=== PATIENT | male | born 1965 | race Caucasian/White ===

== ENCOUNTER 2018-03-26 08:20 | Inpatient (IN) ==
[2018-03-26] MEDS ORDERED: 0.9 % Sodium Chloride 1,000 ML IVC ONE ×4 (08:44→19:41)
[2018-03-26] MEDS ORDERED: Ondansetron 4 MG/2 ML VIAL IVP ONE (09:05)
[2018-03-26] MEDS ORDERED: Ketorolac 15 MG/ML VIAL IVP ONE (09:06)
--- NOTE | 2018-03-26 09:06 | Emergency Department Note ---
Disposition Clinical Impression: Renal stone, Sepsis, UTI (urinary tract infection), Acute kidney injury Abdominal pain Qualifiers: Abdominal location: unspecified location Qualified Code(s): R10.9 - Unspecified abdominal pain Disposition: Admitted As Inpatient Condition: Fair Referrals: Zafar Hinton MD [Primary Care Provider] - Forms: ED Satisfaction Letter Time of Disposition: 11:09 General Adult HPI - General Chief complaint: ED Arrhythmia/Palpitations Stated complaint: "kidney stones, nausea" Time Seen by Provider: 03/26/18 08:43 Source: patient, family Mode of arrival: ambulatory Limitations: no limitations Nursing Notes Reviewed: Yes Vital Signs Reviewed: Yes - History of Present Illness HPI Narrative: 52-year-old male with a history of hypertension, diabetes, recurrent kidney stones presents for evaluation of kidney stones and heart racing. Patient states that he has been diagnosed with kidney stones are the past 3 months. Patient did note that he passed 3 stones on Saturday. Since in the patient's had worsening pain over the right flank right lower abdomen into his groin. Patient has had interventions related to kidney stones in the past. Patient denies any fevers. Patient did note palpitations nausea this morning with worsening pain and prompted the ED evaluation. Patient denies any diarrhea or constipation. Patient denies any urinary symptoms. Patient denies any chest pain. Denies history of arrhythmias. Pain Scale: 8 - Related Data Home Medications Medication Instructions Recorded Confirmed Aspirin 81 mg PO DAILY 10/14/16 03/26/18 Atenolol 100 mg PO DAILY 10/14/16 03/26/18 Metformin HCl [Glucophage] 1,000 mg PO BID 10/14/16 03/26/18 Ranitidine HCl [Zantac] 300 mg PO BID 10/14/16 03/26/18 Triamterene/HCTZ 37.5/25mg 1 tab PO DAILY 10/15/16 03/26/18 [Dyazide] Oxycodone HCl/Acetaminophen 1 each PO Q6H PRN 03/26/18 03/26/18 [Percocet 5-325 mg Tablet] Previous Rx's Medication Instructions Recorded Docusate [Colace] 100 mg PO BID #60 capsule 12/17/16 Tamsulosin [Flomax] 0.4 mg PO DAILY #30 cap.er.24h 12/17/16 Allergies Allergy/AdvReac Type Severity Reaction Status Date / Time ciprofloxacin [From Cipro] Allergy Swelling Verified 12/17/16 12:26 of Lip/Tongue/Throat azithromycin AdvReac Vomiting Verified 12/17/16 12:26 codeine AdvReac Vomiting Verified 12/17/16 12:26 Past Medical History - Past Medical History Medical history: Reports: diabetes, GERD, hyperlipidemia, hypertension, kidney stones Surgical history: Reports: cataract, cholecystectomy, herniorrhaphy, orthopedic , other Psychiatric history: Reports: no psych history - Social History Smoking Status: Never smoker Smokeless Tobacco Status: No Alcohol use: Reports: none Drug use: Reports: none Physical Exam - General Limitations: no limitations General appearance: alert, in no apparent distress - Head Head exam: atraumatic, normocephalic, normal inspection - Eye Eye exam: Present: normal appearance, EOMI - ENT ENT exam: normal exam, mucous membranes moist - Neck Neck exam: Present: normal inspection - Chest Chest inspection: Present: normal inspection, symmetric chest wall rise - Respiratory Respiratory exam: Present: normal lung sounds bilaterally. Absent: respiratory distress - Cardiovascular Cardiovascular exam: Present: tachycardia. Absent: systolic murmur - Abdominal Exam Abdominal exam: Present: soft, Non-Tender - Extremities Exam Extremities exam: Present: normal inspection. Absent: pedal edema - Expanded Lower Extremity Exam Neurovascular/Tendon exam: Present: normal capillary refill - Back Exam Back exam: Present: normal inspection - Neurological Exam Neurological exam: Present: alert, oriented X3, CN II-XII intact Course Course Narrative: Patient seen and examined. Patient does have a regular vital signs with tachycardia. Appears to be sinus initially. Concerns of possible Sirs. Patient will get basic labs, screening cardiopulmonary evaluation with chest x- ray as well as troponin is concerning for ACS equivalent. Patient will also get a CT the abdomen pelvis. Disposition pending. - Reevaluation(s) Reevaluation #1: Patient seen and examined. Patient states his pain has improved. Patient's tachycardia was improving with IV fluids. Patient does meet SIRS and sepsis. Patient will be covered with most likely source in the urine. Time: 10:32 - Consultations Consultation #1: Spoke with Urology about the patient's presentation and concern for obstructed stone and possible sepsis. Time: 10:16 Consultation #2: updated Dr. Jaime regarding the UA results and concern for obstructed infected stone. Time: 11:01 Vital Signs Temperature 98.3 F 03/26/18 08:38 Pulse Rate 142 03/26/18 08:38 Respiratory Rate 18 03/26/18 08:38 Blood Pressure 128/70 03/26/18 08:38 O2 Sat by Pulse Oximetry 96 03/26/18 08:38 Temperature 98.3 F 03/26/18 08:38 Pulse Rate 134 03/26/18 10:50 Respiratory Rate 16 03/26/18 10:50 Blood Pressure 108/78 03/26/18 10:50 O2 Sat by Pulse Oximetry 95 03/26/18 10:50 Oxygen Delivery Oxygen Delivery Nasal Cannula Medical Decision Making - MDM Narrative Medical decision making narrative: Patient seen and examined. Patient did present with Sirs and likely sepsis criteria with elevated lactate. Patient does have obstructive stone on the right side. Patient urine does show signs concerning for infection. Discussed the case with urology. Patient received a 30 mL/kg bolus of fluids. Patient's acute kidney injury is likely secondary to sepsis and possible post renal. Patient was started the most appropriate antibiotics covering the most likely infection. - Lab Data Lab results reviewed: Yes I reviewed the patient's lab results. Result diagrams: 03/26/18 09:17 03/26/18 09:17 Lab Results 03/26/18 03/26/18 03/26/18 Range/Units 09:17 09:17 09:17 WBC 11.2 H (4.3-11.1) K/mcL RBC 5.39 (4.19-5.50) M/mcL Hgb 13.8 (12.9-16.9) g/dL Hct 43.4 (37.5-50.1) % MCV 80.5 L (83.0-100.0) fL MCH 25.6 L (28.0-33.3) pg MCHC 31.8 (31.6-35.5) g/dL RDW 15.6 H (11.5-14.5) % Plt Count 147 (140-400) K/mcL MPV 10.5 (9.4-12.4) fL Immature Gran % Test Not Performed Seg Neutrophils % 82.0 % Band Neutrophils % 14.0 H (0-4) % Lymphocytes % Test Not Performed Monocytes % 4.0 % Eosinophils % Test Not Performed Basophils % Test Not Performed Neutrophils # 10.8 H (1.6-8.9) K/mcL Lymphocytes # PHARMACY ORDER ENTRY TECHNICIAN Monocytes # 0.5 (0.0-1.3) K/mcL Eosinophils # Test Not Performed Basophils # Test Not Performed Platelet Estimate Normal (Normal) Sodium 132 L (136-145) mEq/L Potassium 3.9 (3.5-5.1) mEq/L Chloride 97 L (98-107) mEq/L Carbon Dioxide 17 L (23-29) mEq/L BUN 67 H (6-20) mg/dL Creatinine 3.15 H (0.70-1.30) mg/dL Est GFR ( Amer) 25 L (> 60) Est GFR (Non-Af Amer) 21 L (> 60) BUN/Creatinine Ratio 21 (6-26) Glucose 243 H (70-105) mg/dL Calculated Osmolality 301 H (280-300) Lactic Acid 3.0 H (0.5-2.2) mmol/L Calcium 8.4 L (8.6-10.3) mg/dL Total Bilirubin 0.7 (0.3-1.0) mg/dL Direct Bilirubin 0.4 H (0.0-0.2) mg/dL Indirect Bilirubin 0.3 (0.0-1.2) mg/dL AST 20 (13-39) Units/L ALT 35 (7-52) Units/L Alkaline Phosphatase 73 (34-104) Units/L Troponin I < 0.03 (< 0.04) ng/mL Serum Total Protein 6.9 (6.4-8.9) g/dL Albumin 3.3 L (3.5-5.7) g/dL Globulin 3.6 H (2.4-3.5) g/dL Albumin/Globulin Ratio 0.9 L (1.1-2.2) Urine Color (Yellow) Urine Clarity (Clear) Urine pH (5.0-8.0) pH Units Ur Specific [place] (1.010-1.025) Urine Protein (Neg-Trace) mg/dL Urine Glucose (UA) (Normal) mg/dL Urine Ketones (Negative) mg/dL Urine Blood (Negative) Urine Nitrite (Negative) Urine Bilirubin (Negative) Urine Urobilinogen (Normal) mg/dL Ur Leukocyte Esterase (Negative) Urine Microscopic RBC Urine Microscopic WBC (0-3) per hpf Ur Squamous Epith Cells (None-Few) per lpf Amorphous Sediment (Few) Urine Bacteria (None-Few) per hpf Hyaline Casts (None-Few) per lpf Urine Yeast 03/26/18 Range/Units 10:20 WBC (4.3-11.1) K/mcL RBC (4.19-5.50) M/mcL Hgb (12.9-16.9) g/dL Hct (37.5-50.1) % MCV (83.0-100.0) fL MCH (28.0-33.3) pg MCHC (31.6-35.5) g/dL RDW (11.5-14.5) % Plt Count (140-400) K/mcL MPV (9.4-12.4) fL Immature Gran % Seg Neutrophils % % Band Neutrophils % (0-4) % Lymphocytes % Monocytes % % Eosinophils % Basophils % Neutrophils # (1.6-8.9) K/mcL Lymphocytes # Monocytes # (0.0-1.3) K/mcL Eosinophils # Basophils # Platelet Estimate (Normal) Sodium (136-145) mEq/L Potassium (3.5-5.1) mEq/L Chloride (98-107) mEq/L Carbon Dioxide (23-29) mEq/L BUN (6-20) mg/dL Creatinine (0.70-1.30) mg/dL Est GFR ( Amer) (> 60) Est GFR (Non-Af Amer) (> 60) BUN/Creatinine Ratio (6-26) Glucose (70-105) mg/dL Calculated Osmolality (280-300) Lactic Acid (0.5-2.2) mmol/L Calcium (8.6-10.3) mg/dL Total Bilirubin (0.3-1.0) mg/dL Direct Bilirubin (0.0-0.2) mg/dL Indirect Bilirubin (0.0-1.2) mg/dL AST (13-39) Units/L ALT (7-52) Units/L Alkaline Phosphatase (34-104) Units/L Troponin I (< 0.04) ng/mL Serum Total Protein (6.4-8.9) g/dL Albumin (3.5-5.7) g/dL Globulin (2.4-3.5) g/dL Albumin/Globulin Ratio (1.1-2.2) Urine Color Dark Yellow (Yellow) Urine Clarity Turbid A (Clear) Urine pH 5.0 (5.0-8.0) pH Units Ur Specific [place] 1.028 H (1.010-1.025) Urine Protein 100 H (Neg-Trace) mg/dL Urine Glucose (UA) Normal (Normal) mg/dL Urine Ketones Trace H (Negative) mg/dL Urine Blood Negative (Negative) Urine Nitrite Negative (Negative) Urine Bilirubin Moderate H (Negative) Urine Urobilinogen Normal (Normal) mg/dL Ur Leukocyte Esterase Moderate H (Negative) Urine Microscopic RBC Test Not Performed Urine Microscopic WBC 30-50 H (0-3) per hpf Ur Squamous Epith Cells Many H (None-Few) per lpf Amorphous Sediment Many H (Few) Urine Bacteria Many H (None-Few) per hpf Hyaline Casts None Seen (None-Few) per lpf Urine Yeast Test Not Performed - Radiology Data Radiology results reviewed: Yes I reviewed the patient's radiology results. Chest X-Ray 03/26/18 08:44 IMPRESSION: No evidence for acute cardiopulmonary process. D/ / Mark Sewell MD / Mark Sewell MD Interpreting Provider: Mark Sewell MD Abdomen/Pelvis CT 03/26/18 08:45 IMPRESSION: Multiple stones are present to the distal right ureter to include at the right UVJ measuring up to 6 mm in size. [id number] obstructive uropathy proximal to this. Multiple additional nonobstructing right renal stones. Diffuse fatty infiltration of the liver. Mild colonic diverticulosis. D/ / 03/26/2018 09:20:59 Mark Sewell MD / Dori Mcdonnell Interpreting Provider: Mark Sewell MD - EKG Data EKG #1 EKG attestation: Yes I reviewed and interpreted this EKG. EKG shows normal: sinus rhythm Rate: tachycardia Rhythm: NSR [place]/QRS: normal Q waves: v1 T wave inversions noted in: III Interpretation: nonspecific ST-T wave changes S.B.A.R. - S.B.A.R. Situation: Demographics Background: Presenting Complaint Assessment: Vital Signs, Course and respsone to treatment, Patient/Family Expectation Recommendation: Barrier(s) to disposition, Recommendation based on pending studies, treatments, or consults Du Report Given to: Dr. Fabrice Sandy Repor Time: 11:09
[2018-03-26 09:29] LABS: Hematocrit 43.4 % (37.5-50.1); Hemoglobin 13.8 g/dL (12.9-16.9); Mean Corpuscular HGB Conc 31.8 g/dL (31.6-35.5); Mean Corpuscular Hemoglobin 25.6 pg (28.0-33.3); Mean Corpuscular Volume 80.5 fL (83.0-100.0); Mean Platelet Volume 10.5 fL (9.4-12.4); Monocytes # 0.5 K/mcL (0.0-1.3); Platelet Count 147 K/mcL (140-400); Red Blood Count 5.39 M/mcL (4.19-5.50); Red Cell Distribution Width 15.6 % (11.5-14.5)
[2018-03-26] MEDS ORDERED: *HR* FentaNYL (PF) 100 MCG/2 ML VIAL IVP ONE (09:33)
[2018-03-26 09:53] LABS: Troponin I < 0.03 ng/mL (< 0.04)
[2018-03-26 09:55] LABS: Alanine Aminotransferase 35 Units/L (7-52); Albumin 3.3 g/dL (3.5-5.7); Albumin/Globulin Ratio 0.9 (1.1-2.2); Alkaline Phosphatase 73 Units/L (34-104); Aspartate Amino Transferase 20 Units/L (13-39); BUN/Creatinine Ratio 21 (6-26); Bilirubin,Direct 0.4 mg/dL (0.0-0.2); Bilirubin,Indirect 0.3 mg/dL (0.0-1.2); Bilirubin,Total 0.7 mg/dL (0.3-1.0); Blood Urea Nitrogen 67 mg/dL (6-20); Calcium 8.4 mg/dL (8.6-10.3); Carbon Dioxide 17 mEq/L (23-29); Chloride 97 mEq/L (98-107); Globulin 3.6 g/dL (2.4-3.5); Glucose 243 mg/dL (70-105); Osmolality,Calculated 301 (280-300); Potassium 3.9 mEq/L (3.5-5.1); Sodium 132 mEq/L (136-145); Total Protein 6.9 g/dL (6.4-8.9); eGFR For African Americans 25 (> 60); eGFR For Non-African Americans 21 (> 60)
[2018-03-26 09:57] LABS: Neutrophils # 10.8 K/mcL (1.6-8.9)
[2018-03-26 09:58] LABS: Platelet Estimate Normal (Normal)
[2018-03-26] MEDS ORDERED: Piperacillin/Tazobactam 3.375 GM in 0.9 % Sodium Chloride Mini Bag 100 ML IVPB ONE (10:16)
[2018-03-26 10:33] LABS: Bilirubin,Urine Moderate (Negative); Blood,Urine Negative (Negative); Clarity,Urine Turbid (Clear); Color,Urine Dark Yellow (Yellow); Glucose,Urine (UA) Normal (Normal); Ketones,Urine Trace mg/dL (Negative); Leukocyte Esterase,Urine Moderate (Negative); Nitrite,Urine Negative (Negative); Protein,Urine 100 mg/dL (Neg-Trace); Specific Gravity,Urine 1.028 (1.010-1.025); Urobilinogen,Urine Normal (Normal)
[2018-03-26 10:36] LABS: Squamous Epithelial Cell,Urine Many per lpf (None-Few); WBC,Urine 30-50 per hpf (0-3)
[2018-03-26 10:50] LABS: Bacteria,Urine Many per hpf (None-Few)
[2018-03-26 10:52] LABS: Hyaline Casts,Urine None Seen per lpf (None-Few)
[2018-03-26 10:53] LABS: Amorphous Sediment,Urine Many (Few)
--- NOTE | 2018-03-26 11:01 | Urology - Consult Note ---
<Nuris Mackey N - Last Filed: 03/26/18 11:13> Date of Encounter: 03/26/18 Time of Encounter: 10:59 - Assessment and Plan (1) Right ureteral calculus Current Visit: Yes Status: Acute Assessment and plan: Findings reviewed and discussed with Dr. Jaime. Dr. Jaime is on his way to evaluate patient for further management. Antibiotics and pain management initiated in ED. Urology CN:HPI Consult date: 03/26/18 Reason for consult Urology: Other (Right Flank Pain, Right Ureteral Stone, Possible Urosepsis) History of present illness: Patient presents to the ER with right flank pain, hematuria, fever, chills. Patient was seen 2 days ago by primary care provider and was given [place] and Phenergan for presumed renal stone. Patient was also given IM Toradol for pain in the office. Patient states his symptoms began approximately 5 days ago. Patient states his symptoms have steadily worsened over the last 48 hours. He iis an established patient with Dr. Borges. He has undergone 2 surgeries for renal stones in the past, including basket retrieval and ESWL. Patient states he has a history of renal failure in 2016 with a renal stone that resolved after the stone was passed. Patient states he is a diabetic and his last A1c 6.4. Past Med Surg Social Fam HX - Past Medical History Medical history: diabetes, GERD, hyperlipidemia, hypertension, kidney stones Psychiatric history: no psych history - Past Surgical History Surgical History: cataract, cholecystectomy, herniorrhaphy, orthopedic, other Additional surgical history: LEFT FOOT SURGERY WITH RODS IN FOOT, BILT KNEE SURGERY, HERNIA REPAIR, EYE IMPLANTS - Social History Smoking Status: Never smoker Smokeless Tobacco Status: No Alcohol use: none Drug use: none - Family History Mother Hx Family Cardiac Disorders: Yes (HTN) Hx Family GI Disorders: Yes (GERD) Medications and Allergies Aspirin 81 mg PO DAILY 10/14/16 [History] Atenolol 100 mg PO DAILY 10/14/16 [History] Metformin HCl [Glucophage] 1,000 mg PO BID 10/14/16 [History] Ranitidine HCl [Zantac] 300 mg PO BID 10/14/16 [History] Triamterene/HCTZ 37.5/25mg [Dyazide] 1 tab PO DAILY 10/15/16 [History] Docusate [Colace] 100 mg PO BID #60 capsule 12/17/16 [Rx] Tamsulosin [Flomax] 0.4 mg PO DAILY #30 cap.er.24h 12/17/16 [Rx] Oxycodone HCl/Acetaminophen [Percocet 5-325 mg Tablet] 1 each PO Q6H PRN [History] 3 Allergy/AdvReac Type Severity Reaction Status Date / Time ciprofloxacin [From Cipro] Allergy Swelling Verified 12/17/16 12:26 of Lip/Tongue/Throat azithromycin AdvReac Vomiting Verified 12/17/16 12:26 codeine AdvReac Vomiting Verified 12/17/16 12:26 Review of Systems - Constitutional as per HPI, chills, fatigue, fever(s) - EENT Nose, mouth and throat: no dizziness, no headache(s), no throat swelling - Cardiovascular palpitations (Tachycardic on admission ), no chest pain, no dyspnea - Respiratory no cough, no dyspnea - Gastrointestinal abdominal pain, nausea, vomiting - Genitourinary flank pain (right), hematuria, no change in urinary stream, no difficulty urinating, no dysuria, no urinary frequency, no urinary hesitancy, no urinary urgency - Musculoskeletal back pain, no muscle weakness, no numbness - Integumentary no erythema, no lesions, no rash, no swelling - Neurological no confusion, no syncope Exam Initial Vital Signs Temp Pulse Resp BP Pulse Ox 98.3 F 142 18 128/70 96 03/26/18 08:38 03/26/18 08:38 03/26/18 08:38 03/26/18 08:38 03/26/18 08:38 - General physical appearance Present: well developed, no distress, moderate pain, obese - Eyes Present: PERRL, normal ocular movement - ENT Present: normal nares. Absent: nasal discharge - Neck Present: no masses, trachea midline - Respiratory Present: normal respiratory effort - Cardiovascular Cardiovascular exam IM: tachycardia - Abdomen Abdomen: Present: soft, tender (RLQ tenderness to palpation ). Absent: guarding , rigid - Integumentary Present: no rash, no growths, no abnormal pigmentation - Neurologic Present: normal coordination. Absent: disoriented (Patient appears uncomfortable during exam; Nurse present. Zosyn infusion initiated during exam. ), confused Urology Results - Labs 03/26/18 09:17 03/26/18 09:17 Abnormal lab results WBC 11.2 K/mcL (4.3-11.1) H 03/26/18 09:17 MCV 80.5 fL (83.0-100.0) L 03/26/18 09:17 MCH 25.6 pg (28.0-33.3) L 03/26/18 09:17 RDW 15.6 % (11.5-14.5) H 03/26/18 09:17 Band Neutrophils % 14.0 % (0-4) H 03/26/18 09:17 Neutrophils # 10.8 K/mcL (1.6-8.9) H 03/26/18 09:17 Sodium 132 mEq/L (136-145) L 03/26/18 09:17 Chloride 97 mEq/L (98-107) L 03/26/18 09:17 Carbon Dioxide 17 mEq/L (23-29) L 03/26/18 09:17 BUN 67 mg/dL (6-20) H 03/26/18 09:17 Creatinine 3.15 mg/dL (0.70-1.30) H 03/26/18 09:17 Est GFR ( Amer) 25 (> 60) L 03/26/18 09:17 Est GFR (Non-Af Amer) 21 (> 60) L 03/26/18 09:17 Glucose 243 mg/dL (70-105) H 03/26/18 09:17 Calculated Osmolality 301 (280-300) H 03/26/18 09:17 Lactic Acid 3.0 mmol/L (0.5-2.2) H 03/26/18 09:17 Calcium 8.4 mg/dL (8.6-10.3) L 03/26/18 09:17 Direct Bilirubin 0.4 mg/dL (0.0-0.2) H 03/26/18 09:17 Albumin 3.3 g/dL (3.5-5.7) L 03/26/18 09:17 Globulin 3.6 g/dL (2.4-3.5) H 03/26/18 09:17 Albumin/Globulin Ratio 0.9 (1.1-2.2) L 03/26/18 09:17 Urine Clarity Turbid (Clear) A 03/26/18 10:20 Ur Specific [place] 1.028 (1.010-1.025) H 03/26/18 10:20 Urine Protein 100 mg/dL (Neg-Trace) H 03/26/18 10:20 Urine Ketones Trace mg/dL (Negative) H 03/26/18 10:20 Urine Bilirubin Moderate (Negative) H 03/26/18 10:20 Ur Leukocyte Esterase Moderate (Negative) H 03/26/18 10:20 Urine Microscopic WBC 30-50 per hpf (0-3) H 03/26/18 10:20 Ur Squamous Epith Cells Many per lpf (None-Few) H 03/26/18 10:20 Amorphous Sediment Many (Few) H 03/26/18 10:20 Urine Bacteria Many per hpf (None-Few) H 03/26/18 10:20 Diabetes panel 03/26/18 Range/Units 09:17 Sodium 132 L (136-145) mEq/L Potassium 3.9 (3.5-5.1) mEq/L Chloride 97 L (98-107) mEq/L Carbon Dioxide 17 L (23-29) mEq/L BUN 67 H (6-20) mg/dL Creatinine 3.15 H (0.70-1.30) mg/dL Glucose 243 H (70-105) mg/dL Calcium 8.4 L (8.6-10.3) mg/dL AST 20 (13-39) Units/L ALT 35 (7-52) Units/L Alkaline Phosphatase 73 (34-104) Units/L Albumin 3.3 L (3.5-5.7) g/dL Calcium panel 03/26/18 Range/Units 09:17 Calcium 8.4 L (8.6-10.3) mg/dL Albumin 3.3 L (3.5-5.7) g/dL Pituitary panel 03/26/18 Range/Units 09:17 Sodium 132 L (136-145) mEq/L Potassium 3.9 (3.5-5.1) mEq/L Chloride 97 L (98-107) mEq/L Carbon Dioxide 17 L (23-29) mEq/L BUN 67 H (6-20) mg/dL Creatinine 3.15 H (0.70-1.30) mg/dL Glucose 243 H (70-105) mg/dL Calcium 8.4 L (8.6-10.3) mg/dL Adrenal panel 03/26/18 Range/Units 09:17 Sodium 132 L (136-145) mEq/L Potassium 3.9 (3.5-5.1) mEq/L Chloride 97 L (98-107) mEq/L Carbon Dioxide 17 L (23-29) mEq/L BUN 67 H (6-20) mg/dL Creatinine 3.15 H (0.70-1.30) mg/dL Glucose 243 H (70-105) mg/dL Calcium 8.4 L (8.6-10.3) mg/dL Total Bilirubin 0.7 (0.3-1.0) mg/dL AST 20 (13-39) Units/L ALT 35 (7-52) Units/L Alkaline Phosphatase 73 (34-104) Units/L Albumin 3.3 L (3.5-5.7) g/dL All other labs normal. - Imaging CT scan - abdomen: report reviewed CT scan - pelvis: report reviewed Consult Discharge Plan - Plan <Ton Jaime - Last Filed: 03/26/18 12:43> Date of Encounter: 03/26/18 - Assessment and Plan (1) Hydronephrosis due to obstruction of ureter Current Visit: Yes Status: Acute Assessment and plan: I have reviewed the assessment and examine the patient with Nuris Mackey. I agree with her plan with the additional below Patient has distal ureteral obstruction secondary to multiple distal right ureteral stones. Patient was taken to the operating room today urgently for cystoscopy and right ureteral stent placement. (2) Right ureteral calculus Current Visit: Yes Status: Acute Assessment and plan: We will plan on relieving obstruction with right ureteral stent placement today. (3) Sepsis Current Visit: Yes Status: Acute Assessment and plan: Patient likely early sepsis secondary to obstructing ureteral stone. Patient will require broad-spectrum antibiotics until cultures return. Plan on cystoscopy and right ureteral stent placement for obstruction relief today. Qualifiers: Sepsis type: sepsis due to unspecified organism Qualified Code(s): A41.9 - Sepsis, unspecified organism Exam Initial Vital Signs Temp Pulse Resp BP Pulse Ox 98.3 F 142 18 128/70 96 03/26/18 08:38 03/26/18 08:38 03/26/18 08:38 03/26/18 08:38 03/26/18 08:38 Urology Results - Labs 03/26/18 09:17 03/26/18 09:17 Abnormal lab results WBC 11.2 K/mcL (4.3-11.1) H 03/26/18 09:17 MCV 80.5 fL (83.0-100.0) L 03/26/18 09:17 MCH 25.6 pg (28.0-33.3) L 03/26/18 09:17 RDW 15.6 % (11.5-14.5) H 03/26/18 09:17 Band Neutrophils % 14.0 % (0-4) H 03/26/18 09:17 Neutrophils # 10.8 K/mcL (1.6-8.9) H 03/26/18 09:17 Sodium 132 mEq/L (136-145) L 03/26/18 09:17 Chloride 97 mEq/L (98-107) L 03/26/18 09:17 Carbon Dioxide 17 mEq/L (23-29) L 03/26/18 09:17 BUN 67 mg/dL (6-20) H 03/26/18 09:17 Creatinine 3.15 mg/dL (0.70-1.30) H 03/26/18 09:17 Est GFR ( Amer) 25 (> 60) L 03/26/18 09:17 Est GFR (Non-Af Amer) 21 (> 60) L 03/26/18 09:17 Glucose 243 mg/dL (70-105) H 03/26/18 09:17 Calculated Osmolality 301 (280-300) H 03/26/18 09:17 Lactic Acid 3.0 mmol/L (0.5-2.2) H 03/26/18 09:17 Calcium 8.4 mg/dL (8.6-10.3) L 03/26/18 09:17 Direct Bilirubin 0.4 mg/dL (0.0-0.2) H 03/26/18 09:17 Albumin 3.3 g/dL (3.5-5.7) L 03/26/18 09:17 Globulin 3.6 g/dL (2.4-3.5) H 03/26/18 09:17 Albumin/Globulin Ratio 0.9 (1.1-2.2) L 03/26/18 09:17 Urine Clarity Turbid (Clear) A 03/26/18 10:20 Ur Specific [place] 1.028 (1.010-1.025) H 03/26/18 10:20 Urine Protein 100 mg/dL (Neg-Trace) H 03/26/18 10:20 Urine Ketones Trace mg/dL (Negative) H 03/26/18 10:20 Urine Bilirubin Moderate (Negative) H 03/26/18 10:20 Ur Leukocyte Esterase Moderate (Negative) H 03/26/18 10:20 Urine Microscopic WBC 30-50 per hpf (0-3) H 03/26/18 10:20 Ur Squamous Epith Cells Many per lpf (None-Few) H 03/26/18 10:20 Amorphous Sediment Many (Few) H 03/26/18 10:20 Urine Bacteria Many per hpf (None-Few) H 03/26/18 10:20 All other labs normal.
[2018-03-26] MEDS ORDERED: Naloxone 0.4 MG/ML INJ IVP PRN ×2 (11:45→14:23)
[2018-03-26 11:49] LABS: Sodium, Urine 29.2 mEq/L
--- NOTE | 2018-03-26 12:01 | Internal Med History&Physical ---
<Melissa De Souza Shannon - Last Filed: 03/26/18 12:53> Date of Encounter: 03/26/18 Time of Encounter: 11:51 Internal Medicine - H&P: HPI Chief complaint: Right flank pain Admitted From: Home Plans for Post Hospital Care: Home History of present illness: Mr. Grossman is a 52 year old male with history of renal stones, GERD, DM, and HLD The patient has a 5 day history of right flank pain due to renal stones. He was seen in his pcp office when he was given meds to control his pain. Since that visit he indicates that his pain has worsened. He reports subjective fevers , right abdominal tenderness, and chills. He currently rates the pain a 5-6/10 , which he states is better. The patient was found to have multiple stones in the distal right ureter per CT, one measuring 6 mm, with mild to mod obstructive uropathy. The CT showed mild diverticulosis and fatty infiltrate of the liver. Patient hr in the 120-130's, creat 3.15, bun 67, urine protein 100, wbc 30-50 and NA is 132. The patient has some sepsis criteria. Lactic acid is 3.0, will trend until under 2.0. The patient was started on zosyn for uti. EKG showed tachycardia and a ? a-flutter. Will get another EKG in am. Continuous cardiac monitoring. Past Med Surg Social Fam HX - Past Medical History Medical history: diabetes, GERD, hyperlipidemia, hypertension, kidney stones Psychiatric history: no psych history - Past Surgical History Surgical History: cataract, cholecystectomy, herniorrhaphy, orthopedic, other Additional surgical history: LEFT FOOT SURGERY WITH RODS IN FOOT, BILT KNEE SURGERY, HERNIA REPAIR, EYE IMPLANTS - Social History Smoking Status: Never smoker Smokeless Tobacco Status: No Alcohol use: none Drug use: none - Family History Mother Hx Family Cardiac Disorders: Yes (HTN) Hx Family GI Disorders: Yes (GERD) Internal Medicine - H&P: Meds RX: Aspirin 81 mg PO DAILY 10/14/16 [History] RX: Atenolol 100 mg PO DAILY 10/14/16 [History] RX: Metformin HCl [Glucophage] 1,000 mg PO BID 10/14/16 [History] RX: Ranitidine HCl [Zantac] 300 mg PO BID 10/14/16 [History] RX: Triamterene/HCTZ 37.5/25mg [Dyazide] 1 tab PO DAILY 10/15/16 [History] Docusate [Colace] 100 mg PO BID #60 capsule 12/17/16 [Rx] RX: Tamsulosin [Flomax] 0.4 mg PO DAILY #30 cap.er.24h 12/17/16 [Rx] Oxycodone HCl/Acetaminophen [Percocet 5-325 mg Tablet] 1 each PO Q6H PRN [History] 3 Allergy/AdvReac Type Severity Reaction Status Date / Time ciprofloxacin [From Cipro] Allergy Swelling Verified 12/17/16 12:26 of Lip/Tongue/Throat azithromycin AdvReac Vomiting Verified 12/17/16 12:26 codeine AdvReac Vomiting Verified 12/17/16 12:26 All Systems PM: A 10-system review of systems was performed and is negative for pertinent findings except as documented above in the HPI. - Constitutional Constitutional: chills, fever(s), no night sweats - EENT Eyes: no blurry vision, no change in vision, no discharge, no pain, no photophobia Ears: no ear discharge, no ear pain, no tinnitus Nose, mouth and throat: no dysphagia, no nasal discharge, no neck pain, no sore throat - Cardiovascular Cardiovascular ROS IM: no chest pain, no diaphoresis, no dyspnea, no lightheadedness, no palpitations, no syncope - Respiratory Respiratory: no cough, no dyspnea, no wheezing, no excessive phlegm production - Gastrointestinal Gastrointestinal: abdominal pain (Generalized-however the pain more intense on right side), no diarrhea, no hematemesis, no hematochezia, no melena, no nausea , no vomiting - Musculoskeletal Musculoskeletal ROS IM: no numbness, no tingling - Integumentary Integumentary IM: no rash, no unusual bruising - Neurological Neurological ROS: no confusion, no convulsions, no focal weakness, no numbness, no tingling, no tremor(s) - Hematologic/Lymphatic Hematologic/Lymphatic: no easy bruising - Constitutional Vitals: Temp Pulse Resp BP Pulse Ox 98.3 F 134 16 108/78 95 03/26/18 08:38 03/26/18 10:50 03/26/18 10:50 03/26/18 10:50 03/26/18 10:50 General appearance: Present: A&O X 3, answers questions appropriately - Head Head exam: Present: atraumatic, normocephalic - Eye Eye exam: Present: PERRL, conjuntiva pink, sclera anicteric Pupils: Present: PERRL - Neck Neck exam general surgery: Present: supple, trachea midline. Absent: lymphadenopathy - Respiratory Respiratory exam: Present: CTAB. Absent: accessory muscle use, rales, rhonchi, wheezes - Cardiovascular Cardiovascular exam: Present: RRR, +S1, +S2, tachycardia (? A-fib). Absent: diastolic murmur, gallop, rubs, systolic murmur - GI/Abdominal GI/Abdominal exam: Present: normal bowel sounds, soft, tenderness (Generalized, christiane on right ), no peritoneal signs. Absent: distended - Extremities Exam Extremities exam: Present: warm, radial pulses palpable and symmetrical. Absent : calf tenderness, cyanotic, pedal edema - Neurological Exam Neurological exam: Present: CN II-XII intact, oriented X3, no focal deficits. Absent: pronater drift, facial droop, speech deficit - Skin Skin exam: Present: dry, intact Internal Med - H&P Results - Labs CBC & Chem 7: 03/26/18 09:17 03/26/18 09:17 Labs: Short CBC 03/26/18 Range/Units 09:17 WBC 11.2 H (4.3-11.1) K/mcL Hgb 13.8 (12.9-16.9) g/dL Hct 43.4 (37.5-50.1) % Plt Count 147 (140-400) K/mcL Neutrophils # 10.8 H (1.6-8.9) K/mcL BMP 03/26/18 09:17 Sodium 132 L Potassium 3.9 Chloride 97 L Carbon Dioxide 17 L BUN 67 H Creatinine 3.15 H Glucose 243 H Calcium 8.4 L Cardiac Enzymes 03/26/18 Range/Units 09:17 Troponin I < 0.03 (< 0.04) ng/mL Liver Function 03/26/18 Range/Units 09:17 Total Bilirubin 0.7 (0.3-1.0) mg/dL Direct Bilirubin 0.4 H (0.0-0.2) mg/dL AST 20 (13-39) Units/L ALT 35 (7-52) Units/L Alkaline Phosphatase 73 (34-104) Units/L Albumin 3.3 L (3.5-5.7) g/dL Urine 03/26/18 Range/Units 10:20 Urine Color Dark Yellow (Yellow) Urine Clarity Turbid A (Clear) Urine pH 5.0 (5.0-8.0) pH Units Ur Specific [place] 1.028 H (1.010-1.025) Urine Protein 100 H (Neg-Trace) mg/dL Urine Glucose (UA) Normal (Normal) mg/dL - Impressions ITS Impressions Chest X-Ray 03/26/18 08:44 IMPRESSION: No evidence for acute cardiopulmonary process. D/ / Mark Sewell MD / Mark Sewell MD Interpreting Provider: Mark Sewell MD Abdomen/Pelvis CT 03/26/18 08:45 IMPRESSION: Multiple stones are present to the distal right ureter to include at the right UVJ measuring up to 6 mm in size. [id number] obstructive uropathy proximal to this. Multiple additional nonobstructing right renal stones. Diffuse fatty infiltration of the liver. Mild colonic diverticulosis. D/ / 03/26/2018 09:20:59 Mark Sewell MD / Dori Mcdonnell Interpreting Provider: Mark Sewell MD - Assessment and plan (1) Sepsis Current Visit: Yes Status: Acute Assessment and plan: Sepsis likely due to UTI and renal stones. Iv zosyn Urology was consulted in the ED IVF's Lactic at 3.0, will monitor lactic acids until under 2.0 Qualifiers: Sepsis type: sepsis due to unspecified organism Qualified Code(s): A41.9 - Sepsis, unspecified organism (2) Right ureteral calculus Current Visit: Yes Status: Acute Assessment and plan: Patient has hx of renal stones Continue IVF's Continue IV zosyn Urology is consulted (3) CAROL (acute kidney injury) Current Visit: No Status: Acute Assessment and plan: Urology to manage Continue IVF's and Iv zosyn Monitor daily labs (4) Diabetes Current Visit: No Status: Acute Assessment and plan: Uncontrolled blood sugars. Goal is under 200, while inpatient Accu checks ac/hs Mild humalog insulin coverage Qualifiers: Diabetes mellitus type: type 2 Diabetes mellitus watermaster insulin use: without watermaster use Diabetes mellitus complication status: without complication Qualified Code(s): E11.9 - Type 2 diabetes mellitus without complications (5) Hypertension Current Visit: No Status: Acute Assessment and plan: Bp is controlled Continue home bp meds Qualifiers: Hypertension type: essential hypertension Qualified Code(s): I10 - Essential (primary) hypertension (6) UTI (urinary tract infection) Current Visit: Yes Status: Acute Assessment and plan: v zosyn Urology was consulted in the ED IVF's Lactic at 3.0, will monitor lactic acids until under 2.0 Qualifiers: Urinary tract infection type: site unspecified Hematuria presence: without hematuria Qualified Code(s): N39.0 - Urinary tract infection, site not specified (7) Tachycardia Current Visit: Yes Status: Acute Assessment and plan: Likely due to sepsis, continue IVF's and IV zosyn Cardiac monitoring Repeat EKG in am, aberrant beats with ?aflutter rhythm - Time Spent With Patient Total time spent is greater than 50% in coordination of care (as documented) at patient's floor/unit and/or counseling patient: less than 15 minutes <Monika Avina - Last Filed: 03/26/18 14:13> Date of Encounter: 03/26/18 Time of Encounter: 11:40 Internal Medicine - H&P: HPI Admitted From: Emergency Dept Plans for Post Hospital Care: Home History of present illness: Mr. Grossman is a 52 year old male All Systems PM: A 10-system review of systems was performed and is negative for pertinent findings except as documented above in the HPI. - Constitutional Vitals: Temp Pulse Resp BP Pulse Ox 100.2 F H 123 20 106/67 93 03/26/18 14:04 03/26/18 14:04 03/26/18 14:04 03/26/18 14:04 03/26/18 14:04 Internal Med - H&P Results - Labs CBC & Chem 7: 03/26/18 09:17 03/26/18 09:17 - Attending Attestation I examined this patient and my medical decision-making was reviewed with the Nurse Practitioner, Melissa De Souza. I agree with the documented findings, disposition and treatment plan as described with any changes as documented below. 52-year-old male patient with history of nephrolithiasis, diabetes mellitus, hypertension and hyperlipidemia presented to the ER with complaints of right- sided flank pain going on for 5 days. He has also been having hematuria which she does have intermittently. He follows up with urology as outpatient. She does report fevers and chills at home. On examination, patient is awake and alert. Does have some right-sided flank tenderness. Heart sounds are normal. Breath sounds are normal. Afebrile at this time. CT scan of the abdomen and pelvis shows multiple stones in the right distal ureter and at the right UVJ measuring up to 6 mm in size. Obstructive uropathy proximal to this. WBC is 11.4, BUN 6, creatinine 3.15. Sepsis with infected distal ureteral stone: IV antibiotics. Consult urology. Possible ureteral stent and stone retrieval later today. Keep nothing by mouth. Obstructive uropathy with acute kidney injury: IV fluids. Urology consult. Follow renal function closely. Diabetes mellitus type 2: Monitor blood sugars. Sliding scale insulin. Diabetic diet when patient is able to eat. Essential hypertension: Continue home medications. Monitor blood pressure. - Time Spent With Patient Total time spent is greater than 50% in coordination of care (as documented) at patient's floor/unit and/or counseling patient:
--- NOTE | 2018-03-26 12:31 | Emergency Department Note ---
Disposition Clinical Impression: Renal stone, Sepsis, UTI (urinary tract infection), Acute kidney injury Abdominal pain Qualifiers: Abdominal location: unspecified location Qualified Code(s): R10.9 - Unspecified abdominal pain Disposition: Admitted As Inpatient Condition: Fair Referrals: Zafar Hinton MD [Primary Care Provider] - Forms: ED Satisfaction Letter General Adult HPI - General Chief complaint: ED Arrhythmia/Palpitations Stated complaint: "kidney stones, nausea" Time Seen by Provider: 03/26/18 08:43 Source: patient, family Mode of arrival: ambulatory Limitations: no limitations - History of Present Illness Pain Scale: 8 - Related Data Home Medications Medication Instructions Recorded Confirmed Aspirin 81 mg PO DAILY 10/14/16 03/26/18 Atenolol 100 mg PO DAILY 10/14/16 03/26/18 Metformin HCl [Glucophage] 1,000 mg PO BID 10/14/16 03/26/18 Ranitidine HCl [Zantac] 300 mg PO BID 10/14/16 03/26/18 Triamterene/HCTZ 37.5/25mg 1 tab PO DAILY 10/15/16 03/26/18 [Dyazide] Oxycodone HCl/Acetaminophen 1 each PO Q6H PRN 03/26/18 03/26/18 [Percocet 5-325 mg Tablet] Previous Rx's Medication Instructions Recorded Docusate [Colace] 100 mg PO BID #60 capsule 12/17/16 Tamsulosin [Flomax] 0.4 mg PO DAILY #30 cap.er.24h 12/17/16 Allergies Allergy/AdvReac Type Severity Reaction Status Date / Time ciprofloxacin [From Cipro] Allergy Swelling Verified 12/17/16 12:26 of Lip/Tongue/Throat azithromycin AdvReac Vomiting Verified 12/17/16 12:26 codeine AdvReac Vomiting Verified 12/17/16 12:26 Past Medical History - Past Medical History Medical history: Reports: diabetes, GERD, hyperlipidemia, hypertension, kidney stones Surgical history: Reports: cataract, cholecystectomy, herniorrhaphy, orthopedic , other Psychiatric history: Reports: no psych history - Social History Smoking Status: Never smoker Smokeless Tobacco Status: No Alcohol use: Reports: none Drug use: Reports: none Physical Exam - General Limitations: no limitations General appearance: alert, in no apparent distress Course Vital Signs Temperature 98.3 F 03/26/18 08:38 Pulse Rate 142 03/26/18 08:38 Respiratory Rate 18 03/26/18 08:38 Blood Pressure 128/70 03/26/18 08:38 O2 Sat by Pulse Oximetry 96 03/26/18 08:38 Temperature 98.3 F 03/26/18 08:38 Pulse Rate 130 03/26/18 12:24 Respiratory Rate 24 03/26/18 12:24 Blood Pressure 105/71 03/26/18 12:24 O2 Sat by Pulse Oximetry 95 03/26/18 12:24 Oxygen Delivery Oxygen Delivery Nasal Cannula Medical Decision Making - Lab Data Result diagrams: 03/26/18 09:17 03/26/18 09:17 Lab Results 03/26/18 03/26/18 03/26/18 Range/Units 09:17 09:17 09:17 WBC 11.2 H (4.3-11.1) K/mcL RBC 5.39 (4.19-5.50) M/mcL Hgb 13.8 (12.9-16.9) g/dL Hct 43.4 (37.5-50.1) % MCV 80.5 L (83.0-100.0) fL MCH 25.6 L (28.0-33.3) pg MCHC 31.8 (31.6-35.5) g/dL RDW 15.6 H (11.5-14.5) % Plt Count 147 (140-400) K/mcL MPV 10.5 (9.4-12.4) fL Immature Gran % Test Not Performed Seg Neutrophils % 82.0 % Band Neutrophils % 14.0 H (0-4) % Lymphocytes % Test Not Performed Monocytes % 4.0 % Eosinophils % Test Not Performed Basophils % Test Not Performed Neutrophils # 10.8 H (1.6-8.9) K/mcL Lymphocytes # SALES AND EVENTS COORDINATOR Monocytes # 0.5 (0.0-1.3) K/mcL Eosinophils # Test Not Performed Basophils # Test Not Performed Platelet Estimate Normal (Normal) Sodium 132 L (136-145) mEq/L Potassium 3.9 (3.5-5.1) mEq/L Chloride 97 L (98-107) mEq/L Carbon Dioxide 17 L (23-29) mEq/L BUN 67 H (6-20) mg/dL Creatinine 3.15 H (0.70-1.30) mg/dL Est GFR ( Amer) 25 L (> 60) Est GFR (Non-Af Amer) 21 L (> 60) BUN/Creatinine Ratio 21 (6-26) Glucose 243 H (70-105) mg/dL Calculated Osmolality 301 H (280-300) Lactic Acid 3.0 H (0.5-2.2) mmol/L Calcium 8.4 L (8.6-10.3) mg/dL Total Bilirubin 0.7 (0.3-1.0) mg/dL Direct Bilirubin 0.4 H (0.0-0.2) mg/dL Indirect Bilirubin 0.3 (0.0-1.2) mg/dL AST 20 (13-39) Units/L ALT 35 (7-52) Units/L Alkaline Phosphatase 73 (34-104) Units/L Troponin I < 0.03 (< 0.04) ng/mL Serum Total Protein 6.9 (6.4-8.9) g/dL Albumin 3.3 L (3.5-5.7) g/dL Globulin 3.6 H (2.4-3.5) g/dL Albumin/Globulin Ratio 0.9 L (1.1-2.2) Urine Color (Yellow) Urine Clarity (Clear) Urine pH (5.0-8.0) pH Units Ur Specific [place] (1.010-1.025) Urine Protein (Neg-Trace) mg/dL Urine Glucose (UA) (Normal) mg/dL Urine Ketones (Negative) mg/dL Urine Blood (Negative) Urine Nitrite (Negative) Urine Bilirubin (Negative) Urine Urobilinogen (Normal) mg/dL Ur Leukocyte Esterase (Negative) Urine Microscopic RBC Urine Microscopic WBC (0-3) per hpf Ur Squamous Epith Cells (None-Few) per lpf Amorphous Sediment (Few) Urine Bacteria (None-Few) per hpf Hyaline Casts (None-Few) per lpf Urine Yeast Urine Creatinine mg/dL Urine Sodium mEq/L 03/26/18 03/26/18 Range/Units 10:20 10:20 WBC (4.3-11.1) K/mcL RBC (4.19-5.50) M/mcL Hgb (12.9-16.9) g/dL Hct (37.5-50.1) % MCV (83.0-100.0) fL MCH (28.0-33.3) pg MCHC (31.6-35.5) g/dL RDW (11.5-14.5) % Plt Count (140-400) K/mcL MPV (9.4-12.4) fL Immature Gran % Seg Neutrophils % % Band Neutrophils % (0-4) % Lymphocytes % Monocytes % % Eosinophils % Basophils % Neutrophils # (1.6-8.9) K/mcL Lymphocytes # Monocytes # (0.0-1.3) K/mcL Eosinophils # Basophils # Platelet Estimate (Normal) Sodium (136-145) mEq/L Potassium (3.5-5.1) mEq/L Chloride (98-107) mEq/L Carbon Dioxide (23-29) mEq/L BUN (6-20) mg/dL Creatinine (0.70-1.30) mg/dL Est GFR ( Amer) (> 60) Est GFR (Non-Af Amer) (> 60) BUN/Creatinine Ratio (6-26) Glucose (70-105) mg/dL Calculated Osmolality (280-300) Lactic Acid (0.5-2.2) mmol/L Calcium (8.6-10.3) mg/dL Total Bilirubin (0.3-1.0) mg/dL Direct Bilirubin (0.0-0.2) mg/dL Indirect Bilirubin (0.0-1.2) mg/dL AST (13-39) Units/L ALT (7-52) Units/L Alkaline Phosphatase (34-104) Units/L Troponin I (< 0.04) ng/mL Serum Total Protein (6.4-8.9) g/dL Albumin (3.5-5.7) g/dL Globulin (2.4-3.5) g/dL Albumin/Globulin Ratio (1.1-2.2) Urine Color Dark Yellow (Yellow) Urine Clarity Turbid A (Clear) Urine pH 5.0 (5.0-8.0) pH Units Ur Specific [place] 1.028 H (1.010-1.025) Urine Protein 100 H (Neg-Trace) mg/dL Urine Glucose (UA) Normal (Normal) mg/dL Urine Ketones Trace H (Negative) mg/dL Urine Blood Negative (Negative) Urine Nitrite Negative (Negative) Urine Bilirubin Moderate H (Negative) Urine Urobilinogen Normal (Normal) mg/dL Ur Leukocyte Esterase Moderate H (Negative) Urine Microscopic RBC Test Not Performed Urine Microscopic WBC 30-50 H (0-3) per hpf Ur Squamous Epith Cells Many H (None-Few) per lpf Amorphous Sediment Many H (Few) Urine Bacteria Many H (None-Few) per hpf Hyaline Casts None Seen (None-Few) per lpf Urine Yeast Test Not Performed Urine Creatinine 190 mg/dL Urine Sodium 29.2 mEq/L Attestation Statement - Attestation Attestation: I examined this patient and my medical decision-making was reviewed with the Resident Physician. I agree with the documented findings, disposition and treatment plan as described except to the extent set forth below. Tachycardic patient with normal blood pressure who is septic with an obstructed stone. Heart rate came down with administration of IV fluids in the ED. Lactate mildly elevated. Discussed with urology early, they have taken the patient for a drainage procedure. IV antibiotics administered in the ED.
[2018-03-26] MEDS ORDERED: Scopolamine Patch 1.5 MG PATCH.TD72 ONE (12:44)
--- NOTE | 2018-03-26 12:50 | Anesthesia Evaluation PreOp ---
Date of Encounter: 03/26/18 Time of Encounter: 12:48 - Past History Planned Operation: cysto & right ureteral stent Cardiac History: HTN, Hyperlipidemia Pulmonary History: Denies Any Significant HX THERAPEUTIC RECREATION DIRECTOR History: Denies Any Significant HX Other Medical History: Renal (renal stone; urosepsis), Diabetes Type II (oral medications only), Other (BMI 37) Anesthesia History: Problems (nausea) Alcohol Use: none Drug use: none Medications and Allergies Aspirin 81 mg PO DAILY 10/14/16 [History] Atenolol 100 mg PO DAILY 10/14/16 [History] Metformin HCl [Glucophage] 1,000 mg PO BID 10/14/16 [History] Ranitidine HCl [Zantac] 300 mg PO BID 10/14/16 [History] Triamterene/HCTZ 37.5/25mg [Dyazide] 1 tab PO DAILY 10/15/16 [History] Docusate [Colace] 100 mg PO BID #60 capsule 12/17/16 [Rx] Tamsulosin [Flomax] 0.4 mg PO DAILY #30 cap.er.24h 12/17/16 [Rx] Oxycodone HCl/Acetaminophen [Percocet 5-325 mg Tablet] 1 each PO Q6H PRN [History] 3 Allergy/AdvReac Type Severity Reaction Status Date / Time ciprofloxacin [From Cipro] Allergy Swelling Verified 12/17/16 12:26 of Lip/Tongue/Throat azithromycin AdvReac Vomiting Verified 12/17/16 12:26 codeine AdvReac Vomiting Verified 12/17/16 12:26 - Meds/Allergy Pre-op Review Medications Reviewed: Yes Allergies Reviewed: Yes Beta Blockers on Current Med List: Yes If Beta Blockers taken, Date/Time (Last Dose taken): 03-25-18 atenolol 8 am Anesthesia Results - Labs 03/26/18 09:17 03/26/18 09:17 - Imaging EKG: report reviewed, image reviewed (SINUS RHYTHM INFERIOR MYOCARDIAL INFARCTION, PROBABLY OLD POOR R WAVE PROGRESSION) Anesthesia Exam Last Vital Signs Temp 98.3 F 03/26/18 08:38 Pulse 130 03/26/18 12:24 Resp 24 03/26/18 12:24 BP 105/71 03/26/18 12:24 Pulse Ox 95 03/26/18 12:24 Weight: 118 kg NPO (# of Hours): > 8 hrs - HEENT Pupil (Motor): Pupils equal, EOMI Mallampati: III Teeth: Normal Oral Opening: Greater than 3 - THERAPEUTIC RECREATION DIRECTOR LOC: Oriented THERAPEUTIC RECREATION DIRECTOR Motor: Normal RUE, Normal LUE, Normal RLE, Normal LLE, Normal Face - Cardiac Rhythm: Regular Murmur: None - Pulmonary Breath Sounds: bilateral Clear Respiratory Effort: Symmetrical Anesthesia Assess/Plan ASA Score: 4 Modified Artemio Scale for Level of Consciousness: Cooperative, oriented, and tranquil Anesthetic Plan: General Monitoring Plan: Standard Monitors Recovery Plan: PACU
[2018-03-26] MEDS ORDERED: D5% in Water 1,000 ML IVC PRN ×2 (12:56→14:23)
[2018-03-26] MEDS ORDERED: *HR* Dextrose 50 % in Water (Syg) 50 ML SYRINGE IVP PRN ×2 (12:56→14:23)
[2018-03-26] MEDS ORDERED: Dextrose Gel 15 GM/37.5 ML TUBE PO PRN ×4 (12:56→14:23)
--- NOTE | 2018-03-26 13:49 | Operative Note ---
Date of procedure: 03/26/18 Pre-op diagnosis: right ureteral stone with sepsis Post-op diagnosis: same Procedure: Cystoscopy, transurethral resection of right ureteral orifice, 6 x 26 cm ureteral stent placement on right side Anesthesia: MARTHA Surgeon: Ton Jaime Was there an dermatology physician assistant present: Yes Chief Commercial Officer: Nuris Mackey Estimated blood loss (cc): 0 Specimen: Right ureteral stone, urine from catheter Condition: stable Disposition: PACU Procedure in Detail: Patient was prepped and draped in normal sterile fashion. Timeout procedure performed. I then inserted the cystoscope into the patient's bladder. I could see the right ureteral stone which is mostly within the right ureter as opposed to within the bladder. I then attempted to place a Glidewire past the stone which was unsuccessful. I then removed the scope and placed a resectoscope into the patient's bladder. I proceeded to use the cut function and incised on top of the stone. The stone immediately popped into the bladder as well as gross pus seen coming from the right ureteral orifice. I then removed the resectoscope along with the stone. I then placed the cystoscope back into the bladder and cannulated the right ureteral orifice using a Glidewire. I then placed a 6 x 26 cm stent with good curl in the right kidney and in the bladder. A Machado catheter was placed at the end of the procedure to maximize urinary drainage. Patient taken to PACU in stable condition.
[2018-03-26] MEDS ORDERED: Ondansetron 4 MG/2 ML VIAL ONE (13:57)
[2018-03-26] MEDS ORDERED: *HR* FentaNYL (PF) 100 MCG/2 ML VIAL ONE ×2 (13:57)
[2018-03-26] MEDS ORDERED: *HR* Etomidate 40 MG/20 ML VIAL IVP ONE (13:57)
[2018-03-26] MEDS ORDERED: *HR* Propofol 200 MG/20 ML VIAL IVP ONE (13:57)
[2018-03-26] MEDS ORDERED: *HR* Succinylcholine 200 MG/10 ML VIAL IVP ONE ×2 (13:57)
--- NOTE | 2018-03-26 14:22 | Anesthesia Evaluation Post Op ---
Date of Encounter: 03/26/18 Time of Encounter: 14:21 - Vital Signs Vital Signs: Last Vital Signs Temp 100.1 F H 03/26/18 14:14 Pulse 121 03/26/18 14:14 Resp 22 03/26/18 14:14 BP 111/57 03/26/18 14:14 Pulse Ox 93 03/26/18 14:14 - Lungs Lungs: Clear Ascult./Percussion - Airway Airway: Non-obstructed - Cardiovascular Regular Rate, Baseline Rhythm (tachycardia) - Mental Status Mental Status: Alert & Oriented, Answers Appropriately - Pain Pain Scale: 2 - Nausea Vomiting Nausea Vomiting: Not Present - Hydration Hydration: Ice chips - Discharge PostOp Status: Transfer Patient to floor
[2018-03-26] MEDS ORDERED: 0.9 % Sodium Chloride 1,000 ML IVC SCH (16:15)
[2018-03-26] MEDS ORDERED: Insulin LISPRO 300 UNITS/3 ML VIAL SQ SCH ×2 (16:30→21:00)
[2018-03-26] MEDS: Insulin LISPRO 300 UNITS/3 ML VIAL SQ SCH ×2 (17:00→21:18)
[2018-03-26] MEDS: Piperacillin/Tazobactam 3.375 GM in 0.9 % Sodium Chloride Mini Bag 100 ML IVPB SCH ×2 (17:01→23:29)
--- NOTE | 2018-03-26 17:55 | Electrocardiograph Report ---
[address] [place] [address] Test Date: 2018-03-26 Pat Name: Ryan Grossman Department: 103 Room: 2NE21 Gender: M Ict Developer: : 1965 Requested By: Tate Wells Order Number: [id number] Reading MD: Leroy Carlos Measurements Intervals [place] Rate: 143 P: 3 MI: 133 QRS: 124 QRSD: 90 T: 0 QT: 285 QTc: 368 Interpretive Statements SINUS TACHYCARDIA, POSSIBLE ATRIAL FLUTTER INDETERMINATE AXIS INFERIOR MYOCARDIAL INFARCTION, OF INDETERMINATE AGE Electronically Signed On 03-26-2018 17:54:15 EDT by Leroy Carlos
[2018-03-26] MEDS ORDERED: *HR* Metoprolol 5 MG/5 ML VIAL IVP ONE (18:41)
[2018-03-26] MEDS: Famotidine 20 MG TABLET PO SCH (20:00)
--- NOTE | 2018-03-26 22:08 | Event Note ---
Date of Encounter: 03/26/18 Time of Encounter: 22:04 Patient had episode of difficulty breathing with some sob. o2 was placed up to 4L. The patient temp was 103 at that time. His hr up in the 140's and resp rate in the 30's. Tylenol was given . lactic down to 0.9, d-dimer was 3148. VQ scan was ordered at that time due to renal function. Nuc med here now to do testing. Patient breathing, heart rate and resp rate improved at this time.
[2018-03-27] MEDS: Acetaminophen 325 MG TABLET PO PRN (03:30)
[2018-03-27 04:29] LABS: Basophils % 0.3 %; Eosinophils # 0.1 K/mcL (0.0-0.6); Hematocrit 32.5 % (37.5-50.1); Immature Granulocytes % 1.4 % (0-4); Lymphocytes # 0.3 K/mcL (0.6-4.6); Lymphocytes % 4.5 %; Mean Corpuscular HGB Conc 31.7 g/dL (31.6-35.5); Mean Corpuscular Hemoglobin 25.5 pg (28.0-33.3); Mean Corpuscular Volume 80.4 fL (83.0-100.0); Mean Platelet Volume 10.7 fL (9.4-12.4); Monocytes # 0.4 K/mcL (0.0-1.3); Monocytes % 5.3 %; Neutrophils # 6.4 K/mcL (1.6-8.9); Platelet Count 104 K/mcL (140-400); Red Blood Count 4.04 M/mcL (4.19-5.50); Red Cell Distribution Width 15.9 % (11.5-14.5); Segmented Neutrophils % 87.5 %
[2018-03-27 04:31] LABS: Hemoglobin 10.3 g/dL (12.9-16.9)
[2018-03-27 04:50] LABS: Calcium 6.8 mg/dL (8.6-10.3); Potassium 3.7 mEq/L (3.5-5.1)
[2018-03-27 04:59] LABS: Platelet Estimate Slight Decrease (Normal)
[2018-03-27] MEDS: Insulin LISPRO 300 UNITS/3 ML VIAL SQ SCH ×4 (07:40→20:43)
[2018-03-27] MEDS: Aspirin 81 MG TAB.CHEW PO SCH (07:49)
[2018-03-27] MEDS: Famotidine 20 MG TABLET PO SCH ×2 (07:49→20:43)
[2018-03-27] MEDS: Piperacillin/Tazobactam 3.375 GM in 0.9 % Sodium Chloride Mini Bag 100 ML IVPB SCH ×2 (07:50→17:38)
--- NOTE | 2018-03-27 08:36 | Urology Progress Note ---
Date of Encounter: 03/27/18 Time of Encounter: 08:34 - Assessment and Plan (1) Hydronephrosis due to obstruction of ureter Current Visit: Yes Status: Acute Assessment and plan: Status post right ureteral stent placement patient will need to keep this stent in place. (2) Right ureteral calculus Current Visit: Yes Status: Acute Assessment and plan: While I was able to remove the most distal stone patient still has some proximal stones. These will need to be addressed in the future. No urgent need for stone extraction at this time as patient has a stent in place. (3) Sepsis Current Visit: Yes Status: Acute Assessment and plan: Continue broad-spectrum antibiotics until cultures return. I will recommend to keep the catheter in place at least 1 more day as patient still has a significant amount of sediment coming from his bladder. Qualifiers: Sepsis type: sepsis due to unspecified organism Qualified Code(s): A41.9 - Sepsis, unspecified organism Progress Note Narrative: Ryan is a 52-year-old male with a history of right distal ureteral stone status post stent placement yesterday. Patient with septic appearing picture. Significant fevers overnight. Cultures still pending. Patient feels okay at this time. Good urine output. Objective Initial Vital Signs Temp Pulse Resp BP Pulse Ox 98.3 F 142 18 128/70 96 03/26/18 08:38 03/26/18 08:38 03/26/18 08:38 03/26/18 08:38 03/26/18 08:38 - General physical appearance Present: well developed, well nourished - Respiratory Present: normal expansion, normal respiratory effort - Abdomen Present: soft. Absent: tender, masses - Genitourinary Present: normal penis with no external lesions Urine Appearance: Present: Sediment - Labs 03/27/18 04:04 03/27/18 04:04 Diabetes panel 03/27/18 Range/Units 04:04 Sodium 134 L (136-145) mEq/L Potassium 3.7 (3.5-5.1) mEq/L Chloride 106 (98-107) mEq/L Carbon Dioxide 19 L (23-29) mEq/L BUN 59 H (6-20) mg/dL Creatinine 2.26 H (0.70-1.30) mg/dL Glucose 173 H (70-105) mg/dL Calcium 6.8 L (8.6-10.3) mg/dL Calcium panel 03/27/18 Range/Units 04:04 Calcium 6.8 L (8.6-10.3) mg/dL Pituitary panel 03/27/18 Range/Units 04:04 Sodium 134 L (136-145) mEq/L Potassium 3.7 (3.5-5.1) mEq/L Chloride 106 (98-107) mEq/L Carbon Dioxide 19 L (23-29) mEq/L BUN 59 H (6-20) mg/dL Creatinine 2.26 H (0.70-1.30) mg/dL Glucose 173 H (70-105) mg/dL Calcium 6.8 L (8.6-10.3) mg/dL Adrenal panel 03/27/18 Range/Units 04:04 Sodium 134 L (136-145) mEq/L Potassium 3.7 (3.5-5.1) mEq/L Chloride 106 (98-107) mEq/L Carbon Dioxide 19 L (23-29) mEq/L BUN 59 H (6-20) mg/dL Creatinine 2.26 H (0.70-1.30) mg/dL Glucose 173 H (70-105) mg/dL Calcium 6.8 L (8.6-10.3) mg/dL - VTE Documentation of Mechanical Device: Intermittent pneumatic compression device Consult Discharge Plan - Plan Referrals: Zafar Hinton MD [Primary Care Provider] -
[2018-03-27 12:51] LABS: ABG Base Excess -3 mEq/L (-2 to 3); ABG HCO3 20 mEq/L (21-27); ABG Oxygen Saturation 94 % (95-98); ABG PCO2 31 mmHg (35-45); ABG PH 7.43 pH Units (7.32-7.45); ABG PO2 70 mmHg (85-104); ABG TCO2 21 mEq/L (20-26)
[2018-03-27] MEDS: *HR* OxyCODONE/APAP 5/325 TABLET PO PRN ×2 (13:16→20:43)
--- NOTE | 2018-03-27 16:22 | Internal Med Progress Note ---
<Rory Wilks - Last Filed: 03/27/18 16:36> Date of Encounter: 03/27/18 Time of Encounter: 09:50 - Assessment and plan (1) Sepsis Current Visit: Yes Status: Acute Assessment and plan: Source 2/2 uti/renal stones s/p R stenting with Dr. Hernandez 03/27 vitals: 98.7; 89 HR, 117/79 BP, saturating at 93 on 3L NC Lactic acid 0.9 Plan: continue Zosyn, transition to PO abx tomorrow likely Qualifiers: Sepsis type: sepsis due to unspecified organism Qualified Code(s): A41.9 - Sepsis, unspecified organism (2) Right ureteral calculus Current Visit: Yes Status: Acute Assessment and plan: As above (3) CAROL (acute kidney injury) Current Visit: No Status: Acute Assessment and plan: Downtrending, continue to monitor: 3.15 to 2.26 Pt euvolemic on exam, oral hydration tolerated today (4) Diabetes Current Visit: No Status: Acute Assessment and plan: On med-dose ssi Qualifiers: Diabetes mellitus type: type 2 Diabetes mellitus intermediate project manager insulin use: without intermediate project manager use Diabetes mellitus complication status: without complication Qualified Code(s): E11.9 - Type 2 diabetes mellitus without complications (5) Hypertension Current Visit: No Status: Acute Assessment and plan: normotensive, continue home meds Qualifiers: Hypertension type: essential hypertension Qualified Code(s): I10 - Essential (primary) hypertension (6) Tachycardia Current Visit: Yes Status: Resolved Assessment and plan: resolved, averaging low 90s, high 80s today, monitoring (7) DVT prophylaxis Current Visit: No Status: Acute Assessment and plan: On foot pumps (8) UTI (urinary tract infection) Current Visit: Yes Status: Acute Assessment and plan: Cont Zosyn Urology following PO hydration Lactic acid wnl Qualifiers: Urinary tract infection type: site unspecified Hematuria presence: without hematuria Qualified Code(s): N39.0 - Urinary tract infection, site not specified - Time Spent With Patient Total time spent is greater than 50% in coordination of care (as documented) at patient's floor/unit and/or counseling patient: - Subjective Interval history: Patient is somnolent today, no acute events overnight, stent is not causing him discomfort, comfortable, no questions at this time. - Constitutional Vitals: Temp Pulse Resp BP Pulse Ox 98.7 F 89 18 117/79 93 03/27/18 16:00 03/27/18 16:00 03/27/18 16:00 03/27/18 16:00 03/27/18 16:00 General appearance: Present: A&O X 3, answers questions appropriately Exam: somnolent - Head Head exam: Present: atraumatic, normal inspection - Eye Eye exam: Present: EOMI, normal appearance - Neck Neck exam general surgery: Present: full ROM. Absent: lymphadenopathy - Respiratory Respiratory exam: Present: decreased breath sounds. Absent: stridor, wheezes - Cardiovascular Cardiovascular exam: Present: RRR, +S1, +S2 - GI/Abdominal GI/Abdominal exam: Present: no peritoneal signs. Absent: firm, guarding - Extremities Exam Extremities exam: Present: warm. Absent: calf tenderness - Neurological Exam Neurological exam: Absent: facial droop, speech deficit - Skin Skin exam: Absent: cyanosis, diaphoretic Internal Medicine: Result - Labs CBC & Chem 7: 03/27/18 04:04 03/27/18 04:04 Labs: Short CBC 03/27/18 Range/Units 04:04 WBC 7.3 (4.3-11.1) K/mcL Hgb 10.3 L D (12.9-16.9) g/dL Hct 32.5 L (37.5-50.1) % Plt Count 104 L (140-400) K/mcL Neutrophils # 6.4 (1.6-8.9) K/mcL BMP 03/27/18 04:04 Sodium 134 L Potassium 3.7 Chloride 106 Carbon Dioxide 19 L BUN 59 H Creatinine 2.26 H Glucose 173 H Calcium 6.8 L - ABG Interpretation ABG results: ABG ABG pH 7.43 pH Units (7.32-7.45) 03/27/18 12:47 ABG pCO2 31 mmHg (35-45) L 03/27/18 12:47 ABG pO2 70 mmHg (85-104) L 03/27/18 12:47 ABG O2 Saturation 94 % (95-98) L 03/27/18 12:47 PT/INR, D-dimer D-Dimer 3148 ng/mLFEU (0-500) H 06/27/18 19:29 - Impressions Impressions Pulmonary Perfusion Imaging 03/26/18 20:26 IMPRESSION: Normal. D/ / Armin Nguyen MD / Armin Nguyen MD Interpreting Provider: Armin Nguyen MD - VTE Documentation of Mechanical Device: Intermittent pneumatic compression device Consult Discharge Plan - Plan Referrals: Zafar Hinton MD [Primary Care Provider] - <DelunaTom - Last Filed: 03/27/18 16:40> Date of Encounter: 03/27/18 - Assessment and plan (1) CAROL (acute kidney injury) Current Visit: No Status: Acute (2) Diabetes Current Visit: No Status: Acute Qualifiers: Diabetes mellitus type: type 2 Diabetes mellitus fci insulin use: without fci use Diabetes mellitus complication status: without complication Qualified Code(s): E11.9 - Type 2 diabetes mellitus without complications (3) Hypertension Current Visit: No Status: Acute Qualifiers: Hypertension type: essential hypertension Qualified Code(s): I10 - Essential (primary) hypertension (4) DVT prophylaxis Current Visit: No Status: Acute (5) Right ureteral calculus Current Visit: Yes Status: Acute (6) Tachycardia Current Visit: Yes Status: Resolved (7) Sepsis Current Visit: Yes Status: Acute Qualifiers: Sepsis type: sepsis due to unspecified organism Qualified Code(s): A41.9 - Sepsis, unspecified organism (8) UTI (urinary tract infection) Current Visit: Yes Status: Acute Qualifiers: Urinary tract infection type: site unspecified Hematuria presence: without hematuria Qualified Code(s): N39.0 - Urinary tract infection, site not specified - Time Spent With Patient Total time spent is greater than 50% in coordination of care (as documented) at patient's floor/unit and/or counseling patient: - Constitutional Vitals: Temp Pulse Resp BP Pulse Ox 98.7 F 89 18 117/79 93 03/27/18 16:00 03/27/18 16:00 03/27/18 16:00 03/27/18 16:00 03/27/18 16:00 Internal Medicine: Result - Labs CBC & Chem 7: 03/27/18 04:04 03/27/18 04:04 Labs: Short CBC 03/27/18 Range/Units 04:04 WBC 7.3 (4.3-11.1) K/mcL Hgb 10.3 L D (12.9-16.9) g/dL Hct 32.5 L (37.5-50.1) % Plt Count 104 L (140-400) K/mcL Neutrophils # 6.4 (1.6-8.9) K/mcL BMP 03/27/18 04:04 Sodium 134 L Potassium 3.7 Chloride 106 Carbon Dioxide 19 L BUN 59 H Creatinine 2.26 H Glucose 173 H Calcium 6.8 L - ABG Interpretation ABG results: ABG ABG pH 7.43 pH Units (7.32-7.45) 03/27/18 12:47 ABG pCO2 31 mmHg (35-45) L 03/27/18 12:47 ABG pO2 70 mmHg (85-104) L 03/27/18 12:47 ABG O2 Saturation 94 % (95-98) L 03/27/18 12:47 PT/INR, D-dimer D-Dimer 3148 ng/mLFEU (0-500) H 03/26/18 19:29 - Impressions Impressions Pulmonary Perfusion Imaging 03/26/18 20:26 IMPRESSION: Normal. D/ / Armin Nguyen MD / Armin Nguyen MD Interpreting Provider: Armin Nguyen MD - Attending Attestation I performed an independent interview and examine this patient. I agree with the findings, assessment, and plan of Dr. Wilks, internal medicine resident. She appears to be improving. He continues on IV Zosyn for now pending culture results. Machado catheter remains in place for now as recommended by urology. I had a long discussion with the patient and his concerning potential for sleep apnea and recommended patient have an outpatient sleep study. She continues to have low-grade temperature. He remains otherwise hemodynamically stable. Patient has morbid obesity. Gen: NAD, AAOx3, morbidly obese Skin warm, diaphoretic Lung CTAB Ht RRR Abd soft +BS, NT Ext no sig edema
--- NOTE | 2018-03-27 16:46 | Electrocardiograph Report ---
[address] [place] [address] Test Date: 2018-03-26 Pat Name: Ryan Grossman Department: 111 Room: 2NE21 Gender: M Emergency Department Aide: : 1965 Requested By: Melissa De Souza Order Number: [id number] Reading MD: Yuridia Barnett Measurements Intervals [place] Rate: 126 P: 9 WA: 161 QRS: -15 QRSD: 92 T: 10 QT: 302 QTc: 377 Interpretive Statements SINUS TACHYCARDIA INFERIOR MYOCARDIAL INFARCTION, PROBABLY OLD Electronically Signed On 03-27-2018 16:44:48 EDT by Yuridia Barnett
[2018-03-28] MEDS: Piperacillin/Tazobactam 3.375 GM in 0.9 % Sodium Chloride Mini Bag 100 ML IVPB SCH ×3 (01:06→17:19)
[2018-03-28 03:31] LABS: Basophils % 0.3 %; Eosinophils # 0.1 K/mcL (0.0-0.6); Eosinophils % 0.9 %; Hematocrit 37.7 % (37.5-50.1); Hemoglobin 11.8 g/dL (12.9-16.9); Immature Granulocytes % 3.5 % (0-4); Immature Platelets 4.3 % (1.1-6.1); Lymphocytes # 1.2 K/mcL (0.6-4.6); Mean Corpuscular HGB Conc 31.3 g/dL (31.6-35.5); Mean Corpuscular Hemoglobin 25.5 pg (28.0-33.3); Mean Corpuscular Volume 81.4 fL (83.0-100.0); Mean Platelet Volume 10.3 fL (9.4-12.4); Monocytes # 0.7 K/mcL (0.0-1.3); Monocytes % 5.6 %; Neutrophils # 9.5 K/mcL (1.6-8.9); Red Blood Count 4.63 M/mcL (4.19-5.50); Red Cell Distribution Width 15.9 % (11.5-14.5); Segmented Neutrophils % 79.7 %
[2018-03-28 03:39] LABS: Calcium 7.7 mg/dL (8.6-10.3); Potassium 4.4 mEq/L (3.5-5.1)
[2018-03-28 03:42] LABS: Platelet Count 95 K/mcL (140-400)
[2018-03-28] MEDS: *HR* OxyCODONE/APAP 5/325 TABLET PO PRN (04:03)
[2018-03-28 04:08] LABS: Platelet Estimate Decreased (Normal); Toxic Granulation Present (Not Present)
[2018-03-28 04:10] LABS: Acinetobacter baumannii by PCR Not Detected (Not Detect); Candida albicans by PCR ***DETECTED*** (Not Detect); Candida glabrata by PCR Not Detected (Not Detect); Candida krusei by PCR Not Detected (Not Detect); Candida parapsilosis by PCR Not Detected (Not Detect); Candida tropicalis by PCR Not Detected (Not Detect); Enterococcus by PCR Not Detected (Not Detect); Escherichia coli by PCR Not Detected (Not Detect); Klebsiella oxytoca by PCR Not Detected (Not Detect); Klebsiella pneumoniae by PCR Not Detected (Not Detect); Pseudomonas aeruginosa by PCR Not Detected (Not Detect); Serratia marcescens by PCR Not Detected (Not Detect); Staphylococcus aureus by PCR Not Detected (Not Detect); Streptococcus agalactiae(B)PCR Not Detected (Not Detect); Streptococcus by PCR Not Detected (Not Detect); Streptococcus pneumoniae PCR Not Detected (Not Detect); Streptococcus pyogenes (A) PCR Not Detected (Not Detect); blaKPC Carbapenem-Resist Gene Not Detected (Not Detect); mecA Methicillin-Resist Gene Not Detected (Not Detect); vanA/B Vancomycin-Resist Genes Not Detected (Not Detect)
[2018-03-28] MEDS: Aspirin 81 MG TAB.CHEW PO SCH (09:01)
[2018-03-28] MEDS: Fluconazole 200 MG/100 ML 200 MG/100 ML BAG IVPB SCH (09:02)
[2018-03-28] MEDS: Insulin LISPRO 300 UNITS/3 ML VIAL SQ SCH ×4 (09:03→21:21)
[2018-03-28] MEDS: Ondansetron 4 MG/2 ML VIAL IVP PRN (10:16)
--- NOTE | 2018-03-28 11:26 | Urology Progress Note ---
Date of Encounter: 03/28/18 Time of Encounter: 11:24 - Assessment and Plan (1) Hydronephrosis due to obstruction of ureter Current Visit: Yes Status: Acute Assessment and plan: Status post stenting. Patient to continue with stent. okay to remove catheter. (2) Right ureteral calculus Current Visit: Yes Status: Acute (3) Sepsis Current Visit: Yes Status: Acute Assessment and plan: I have added Diflucan to the patient's medication regimen. May need to consider consulting with infectious disease. Qualifiers: Sepsis type: sepsis due to unspecified organism Qualified Code(s): A41.9 - Sepsis, unspecified organism Progress Note Narrative: Patient seen this morning. Blood culture showed yeast. Objective Initial Vital Signs Temp Pulse Resp BP Pulse Ox 98.3 F 142 18 128/70 96 03/26/18 08:38 03/26/18 08:38 03/26/18 08:38 03/26/18 08:38 03/26/18 08:38 - General physical appearance Present: well developed, well nourished - Respiratory Present: normal respiratory effort - Abdomen Present: soft - Labs 03/28/18 02:44 03/28/18 02:44 Diabetes panel 03/28/18 Range/Units 02:44 Sodium 133 L (136-145) mEq/L Potassium 4.4 (3.5-5.1) mEq/L Chloride 103 (98-107) mEq/L Carbon Dioxide 22 L (23-29) mEq/L BUN 39 H (6-20) mg/dL Creatinine 1.64 H (0.70-1.30) mg/dL Glucose 167 H (70-105) mg/dL Calcium 7.7 L (8.6-10.3) mg/dL Calcium panel 03/28/18 Range/Units 02:44 Calcium 7.7 L (8.6-10.3) mg/dL Pituitary panel 03/28/18 Range/Units 02:44 Sodium 133 L (136-145) mEq/L Potassium 4.4 (3.5-5.1) mEq/L Chloride 103 (98-107) mEq/L Carbon Dioxide 22 L (23-29) mEq/L BUN 39 H (6-20) mg/dL Creatinine 1.64 H (0.70-1.30) mg/dL Glucose 167 H (70-105) mg/dL Calcium 7.7 L (8.6-10.3) mg/dL Adrenal panel 03/28/18 Range/Units 02:44 Sodium 133 L (136-145) mEq/L Potassium 4.4 (3.5-5.1) mEq/L Chloride 103 (98-107) mEq/L Carbon Dioxide 22 L (23-29) mEq/L BUN 39 H (6-20) mg/dL Creatinine 1.64 H (0.70-1.30) mg/dL Glucose 167 H (70-105) mg/dL Calcium 7.7 L (8.6-10.3) mg/dL - VTE Documentation of Mechanical Device: Intermittent pneumatic compression device Consult Discharge Plan - Plan Referrals: Zafar Hinton MD [Primary Care Provider] -
[2018-03-28] MEDS: Acetaminophen 325 MG TABLET PO PRN (15:39)
--- NOTE | 2018-03-28 17:40 | Internal Med Progress Note ---
<Rory Wilks - Last Filed: 03/28/18 17:44> Date of Encounter: 03/28/18 Time of Encounter: 10:35 - Assessment and plan (1) Sepsis Current Visit: Yes Status: Acute Assessment and plan: Source 2/2 uti/renal stones s/p R stenting with Dr. Hernandez, post procedure day 2 no fevers today Plan: continue Zosyn (today is day 3), transition to Levaquin tomorrow 03/29 Qualifiers: Sepsis type: sepsis due to unspecified organism Qualified Code(s): A41.9 - Sepsis, unspecified organism (2) Right ureteral calculus Current Visit: Yes Status: Acute Assessment and plan: As above (3) CAROL (acute kidney injury) Current Visit: No Status: Acute Assessment and plan: Downtrending, continue to monitor: 1.64 (2.26, 3.15) Oral hydration (4) Diabetes Current Visit: No Status: Acute Assessment and plan: On med-dose ssi Qualifiers: Diabetes mellitus type: type 2 Diabetes mellitus penitentiary insulin use: without penitentiary use Diabetes mellitus complication status: without complication Qualified Code(s): E11.9 - Type 2 diabetes mellitus without complications (5) Hypertension Current Visit: No Status: Acute Assessment and plan: normotensive, continue home meds Qualifiers: Hypertension type: essential hypertension Qualified Code(s): I10 - Essential (primary) hypertension (6) Tachycardia Current Visit: Yes Status: Resolved Assessment and plan: resolved, averaging low 90s, high 80s today, monitoring (7) DVT prophylaxis Current Visit: No Status: Acute Assessment and plan: On foot pumps (8) UTI (urinary tract infection) Current Visit: Yes Status: Acute Assessment and plan: Peripheral blood culture 1/2 yeast, likely contaminant Cont Zosyn Urology following PO hydration Lactic acid wnl Qualifiers: Urinary tract infection type: site unspecified Hematuria presence: without hematuria Qualified Code(s): N39.0 - Urinary tract infection, site not specified - Time Spent With Patient Total time spent is greater than 50% in coordination of care (as documented) at patient's floor/unit and/or counseling patient: - Subjective Interval history: Patient has improved alertness today, no acute events overnight, no subjective fevers, tolerating nasal cannula at 2L, no dyspnea. - Constitutional Vitals: Temp Pulse Resp BP Pulse Ox 98.2 F 85 18 134/88 93 03/28/18 15:57 03/28/18 15:57 03/28/18 15:57 03/28/18 15:57 03/28/18 15:57 General appearance: Present: A&O X 3, answers questions appropriately - Head Head exam: Present: atraumatic, normocephalic - Eye Eye exam: Present: PERRL, conjuntiva pink, sclera anicteric Pupils: Present: PERRL - Neck Neck exam general surgery: Present: supple, trachea midline. Absent: lymphadenopathy - Respiratory Respiratory exam: Present: CTAB. Absent: accessory muscle use, rales, rhonchi, wheezes Additional comments: wide neck girth - Cardiovascular Cardiovascular exam: Present: RRR, +S1, +S2. Absent: diastolic murmur, gallop, rubs, systolic murmur - GI/Abdominal GI/Abdominal exam: Present: normal bowel sounds, soft, no peritoneal signs. Absent: distended, tenderness - Extremities Exam Extremities exam: Present: warm, radial pulses palpable and symmetrical. Absent : calf tenderness, cyanotic, pedal edema - Back Exam Additional comments: presence of stent R ureter; no flank pain - Neurological Exam Neurological exam: Present: CN II-XII intact, oriented X3, no focal deficits. Absent: pronater drift, facial droop, speech deficit - Skin Skin exam: Present: dry, intact Internal Medicine: Result - Labs CBC & Chem 7: 03/28/18 02:44 03/28/18 02:44 Labs: Short CBC 03/28/18 Range/Units 02:44 WBC 11.9 H D (4.3-11.1) K/mcL Hgb 11.8 L D (12.9-16.9) g/dL Hct 37.7 (37.5-50.1) % Plt Count 95 L (140-400) K/mcL Neutrophils # 9.5 H (1.6-8.9) K/mcL BMP 03/28/18 02:44 Sodium 133 L Potassium 4.4 Chloride 103 Carbon Dioxide 22 L BUN 39 H Creatinine 1.64 H Glucose 167 H Calcium 7.7 L - ABG Interpretation ABG results: ABG ABG pH 7.43 pH Units (7.32-7.45) 03/27/18 12:47 ABG pCO2 31 mmHg (35-45) L 03/27/18 12:47 ABG pO2 70 mmHg (85-104) L 03/27/18 12:47 ABG O2 Saturation 94 % (95-98) L 03/27/18 12:47 PT/INR, D-dimer D-Dimer 3148 ng/mLFEU (0-500) H 03/26/18 19:29 - VTE Documentation of Mechanical Device: Intermittent pneumatic compression device Consult Discharge Plan - Plan Referrals: Zafar Hinton MD [Primary Care Provider] - <Tom Deluna - Last Filed: 03/28/18 17:51> Date of Encounter: 03/28/18 - Assessment and plan (1) CAROL (acute kidney injury) Current Visit: No Status: Acute (2) Diabetes Current Visit: No Status: Acute Qualifiers: Diabetes mellitus type: type 2 Diabetes mellitus penitentiary insulin use: without superintendent marine oil terminal use Diabetes mellitus complication status: without complication Qualified Code(s): E11.9 - Type 2 diabetes mellitus without complications (3) Hypertension Current Visit: No Status: Acute Qualifiers: Hypertension type: essential hypertension Qualified Code(s): I10 - Essential (primary) hypertension (4) DVT prophylaxis Current Visit: No Status: Acute (5) Right ureteral calculus Current Visit: Yes Status: Acute (6) Tachycardia Current Visit: Yes Status: Resolved (7) Sepsis Current Visit: Yes Status: Acute Qualifiers: Sepsis type: sepsis due to unspecified organism Qualified Code(s): A41.9 - Sepsis, unspecified organism (8) UTI (urinary tract infection) Current Visit: Yes Status: Acute Qualifiers: Urinary tract infection type: site unspecified Hematuria presence: without hematuria Qualified Code(s): N39.0 - Urinary tract infection, site not specified - Time Spent With Patient Total time spent is greater than 50% in coordination of care (as documented) at patient's floor/unit and/or counseling patient: - Constitutional Vitals: Temp Pulse Resp BP Pulse Ox 98.2 F 85 18 134/88 93 03/28/18 15:57 03/28/18 15:57 03/28/18 15:57 03/28/18 15:57 03/28/18 15:57 Internal Medicine: Result - Labs CBC & Chem 7: 03/28/18 02:44 03/28/18 02:44 Labs: Short CBC 03/28/18 Range/Units 02:44 WBC 11.9 H D (4.3-11.1) K/mcL Hgb 11.8 L D (12.9-16.9) g/dL Hct 37.7 (37.5-50.1) % Plt Count 95 L (140-400) K/mcL Neutrophils # 9.5 H (1.6-8.9) K/mcL BMP 03/28/18 02:44 Sodium 133 L Potassium 4.4 Chloride 103 Carbon Dioxide 22 L BUN 39 H Creatinine 1.64 H Glucose 167 H Calcium 7.7 L - ABG Interpretation ABG results: ABG ABG pH 7.43 pH Units (7.32-7.45) 03/27/18 12:47 ABG pCO2 31 mmHg (35-45) L 03/27/18 12:47 ABG pO2 70 mmHg (85-104) L 03/27/18 12:47 ABG O2 Saturation 94 % (95-98) L 03/27/18 12:47 PT/INR, D-dimer D-Dimer 3148 ng/mLFEU (0-500) H 03/26/18 19:29 - Attending Attestation I performed an independent interview and examine of this patient. I agree with the findings, assessment, and plan of Dr. Wilks, internal medicine resident. Urology input is appreciated. Machado catheter is been removed. Patient is currently day #3 of IV Zosyn. No culture data available. Anticipate transition to by mouth antibiotics tomorrow. Renal failure is improving with fluids. Patient had blood cultures positive for yeast. This is one out of 2, this may be a contaminant. She otherwise is improving. To continue to wean oxygen as able. Patient likely has obesity hypoventilation syndrome and/or atelectasis contributing to his hypoxemia. All else as outlined above.
[2018-03-28] MEDS: Famotidine 20 MG TABLET PO SCH (21:21)
[2018-03-29] MEDS: Piperacillin/Tazobactam 3.375 GM in 0.9 % Sodium Chloride Mini Bag 100 ML IVPB SCH ×2 (01:38→09:15)
[2018-03-29] MEDS: Acetaminophen 325 MG TABLET PO PRN (01:40)
[2018-03-29] MEDS: Ondansetron 4 MG/2 ML VIAL IVP PRN (01:41)
[2018-03-29 06:26] LABS: Mean Corpuscular HGB Conc 32.1 g/dL (31.6-35.5); Mean Corpuscular Hemoglobin 25.8 pg (28.0-33.3); Mean Corpuscular Volume 80.5 fL (83.0-100.0); Mean Platelet Volume 10.6 fL (9.4-12.4); Platelet Count 131 K/mcL (140-400); Red Blood Count 4.72 M/mcL (4.19-5.50); Red Cell Distribution Width 15.8 % (11.5-14.5)
[2018-03-29 06:27] LABS: Hemoglobin 12.2 g/dL (12.9-16.9)
[2018-03-29 06:47] LABS: BUN/Creatinine Ratio 21 (6-26); Blood Urea Nitrogen 29 mg/dL (6-20); Calcium 8.1 mg/dL (8.6-10.3); Carbon Dioxide 23 mEq/L (23-29); Chloride 101 mEq/L (98-107); Glucose 167 mg/dL (70-105); Osmolality,Calculated 288 (280-300); Potassium 3.9 mEq/L (3.5-5.1); Sodium 134 mEq/L (136-145); eGFR For African Americans > 60 (> 60); eGFR For Non-African Americans 54 (> 60)
[2018-03-29] MEDS: Aspirin 81 MG TAB.CHEW PO SCH (09:15)
[2018-03-29] MEDS: Fluconazole 200 MG/100 ML 200 MG/100 ML BAG IVPB SCH (09:16)
[2018-03-29] MEDS: Insulin LISPRO 300 UNITS/3 ML VIAL SQ SCH ×3 (09:16→17:29)
--- NOTE | 2018-03-29 14:04 | Internal Med Progress Note ---
<Rory Wilks - Last Filed: 03/29/18 14:16> Date of Encounter: 03/29/18 Time of Encounter: 08:40 - Assessment and plan (1) Sepsis Current Visit: Yes Status: Acute Assessment and plan: Source 2/2 uti/renal stones s/p R stenting with Dr. Hernandez no fevers; increased wt ct today, banda dc'd yesterday Plan: has had 4 days zosyn, stepdown to Levaquin, total abx course will be 10d Qualifiers: Sepsis type: sepsis due to unspecified organism Qualified Code(s): A41.9 - Sepsis, unspecified organism (2) Right ureteral calculus Current Visit: Yes Status: Acute Assessment and plan: As above (3) CAROL (acute kidney injury) Current Visit: No Status: Acute Assessment and plan: Downtrending, continue to monitor: 1.37 (3.15->2.26->1.64) Oral hydration (4) Diabetes Current Visit: No Status: Acute Assessment and plan: On med-dose ssi; avg 160s Qualifiers: Diabetes mellitus type: type 2 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 use: without marine oil terminal superintendent use Diabetes mellitus complication status: without complication Qualified Code(s): E11.9 - Type 2 diabetes mellitus without complications (5) Hypertension Current Visit: No Status: Acute Assessment and plan: normotensive, continue home meds Qualifiers: Hypertension type: essential hypertension Qualified Code(s): I10 - Essential (primary) hypertension (6) Tachycardia Current Visit: Yes Status: Resolved Assessment and plan: resolved, averaging low 80s, high 70s today, monitoring (7) DVT prophylaxis Current Visit: No Status: Acute Assessment and plan: On foot pumps (8) UTI (urinary tract infection) Current Visit: Yes Status: Acute Assessment and plan: Peripheral blood culture 1/2 yeast, likely contaminant PO hydration Switching to levaquin Lactic acid wnl Qualifiers: Urinary tract infection type: site unspecified Hematuria presence: without hematuria Qualified Code(s): N39.0 - Urinary tract infection, site not specified - Time Spent With Patient Total time spent is greater than 50% in coordination of care (as documented) at patient's floor/unit and/or counseling patient: - Subjective Interval history: Pt slept well yesterday, denies fevers or shortness of breath, maintains saturation after PT, no acute events overnight. - Constitutional Vitals: Temp Pulse Resp BP Pulse Ox 98.4 F 77 16 134/84 94 03/29/18 07:55 03/29/18 07:55 03/29/18 07:55 03/29/18 07:55 03/29/18 07:55 General appearance: Present: A&O X 3, answers questions appropriately - Head Head exam: Present: atraumatic, normocephalic - Eye Eye exam: Present: PERRL, conjuntiva pink, sclera anicteric Pupils: Present: PERRL - Neck Neck exam general surgery: Present: supple, trachea midline. Absent: lymphadenopathy Additional comments: wide neck girth - Respiratory Respiratory exam: Present: decreased breath sounds. Absent: accessory muscle use, rales, rhonchi, wheezes - Cardiovascular Cardiovascular exam: Present: RRR, +S1, +S2. Absent: diastolic murmur, gallop, rubs, systolic murmur - GI/Abdominal GI/Abdominal exam: Present: normal bowel sounds, soft, no peritoneal signs. Absent: distended, tenderness - Extremities Exam Extremities exam: Present: warm, radial pulses palpable and symmetrical. Absent : calf tenderness, cyanotic, pedal edema - Back Exam Additional comments: present of stent R side; no CVA tenderness - Neurological Exam Neurological exam: Present: CN II-XII intact, oriented X3, no focal deficits. Absent: pronater drift, facial droop, speech deficit - Skin Skin exam: Present: dry, intact Internal Medicine: Result - Labs CBC & Chem 7: 03/29/18 05:54 03/29/18 05:54 Labs: Short CBC 03/29/18 Range/Units 05:54 WBC 16.1 H (4.3-11.1) K/mcL Hgb 12.2 L (12.9-16.9) g/dL Hct 38.0 (37.5-50.1) % Plt Count 131 L (140-400) K/mcL BMP 03/29/18 05:54 Sodium 134 L Potassium 3.9 Chloride 101 Carbon Dioxide 23 BUN 29 H Creatinine 1.37 H Glucose 167 H Calcium 8.1 L - ABG Interpretation ABG results: ABG ABG pH 7.43 pH Units (7.32-7.45) 03/27/18 12:47 ABG pCO2 31 mmHg (35-45) L 03/27/18 12:47 ABG pO2 70 mmHg (85-104) L 03/27/18 12:47 ABG O2 Saturation 94 % (95-98) L 03/27/18 12:47 PT/INR, D-dimer D-Dimer 3148 ng/mLFEU (0-500) H 03/26/18 19:29 - VTE Documentation of Mechanical Device: Intermittent pneumatic compression device Consult Discharge Plan - Plan Referrals: Zafar Hinton MD [Primary Care Provider] - <Tom Deluna - Last Filed: 03/29/18 15:01> Date of Encounter: 03/29/18 - Assessment and plan (1) CAROL (acute kidney injury) Current Visit: No Status: Acute (2) Diabetes Current Visit: No Status: Acute Qualifiers: Diabetes mellitus type: type 2 Diabetes mellitus half-way insulin use: without marine oil terminal superintendent use Diabetes mellitus complication status: without complication Qualified Code(s): E11.9 - Type 2 diabetes mellitus without complications (3) Hypertension Current Visit: No Status: Acute Qualifiers: Hypertension type: essential hypertension Qualified Code(s): I10 - Essential (primary) hypertension (4) DVT prophylaxis Current Visit: No Status: Acute (5) Right ureteral calculus Current Visit: Yes Status: Acute (6) Tachycardia Current Visit: Yes Status: Resolved (7) Sepsis Current Visit: Yes Status: Acute Qualifiers: Sepsis type: sepsis due to unspecified organism Qualified Code(s): A41.9 - Sepsis, unspecified organism (8) UTI (urinary tract infection) Current Visit: Yes Status: Acute Qualifiers: Urinary tract infection type: site unspecified Hematuria presence: without hematuria Qualified Code(s): N39.0 - Urinary tract infection, site not specified - Time Spent With Patient Total time spent is greater than 50% in coordination of care (as documented) at patient's floor/unit and/or counseling patient: - Constitutional Vitals: Temp Pulse Resp BP Pulse Ox 98.4 F 77 16 134/84 94 03/29/18 07:55 03/29/18 07:55 03/29/18 07:55 03/29/18 07:55 03/29/18 07:55 Internal Medicine: Result - Labs CBC & Chem 7: 03/29/18 05:54 03/29/18 05:54 Labs: Short CBC 03/29/18 Range/Units 05:54 WBC 16.1 H (4.3-11.1) K/mcL Hgb 12.2 L (12.9-16.9) g/dL Hct 38.0 (37.5-50.1) % Plt Count 131 L (140-400) K/mcL BMP 03/29/18 05:54 Sodium 134 L Potassium 3.9 Chloride 101 Carbon Dioxide 23 BUN 29 H Creatinine 1.37 H Glucose 167 H Calcium 8.1 L - ABG Interpretation ABG results: ABG ABG pH 7.43 pH Units (7.32-7.45) 03/27/18 12:47 ABG pCO2 31 mmHg (35-45) L 03/27/18 12:47 ABG pO2 70 mmHg (85-104) L 03/27/18 12:47 ABG O2 Saturation 94 % (95-98) L 03/27/18 12:47 PT/INR, D-dimer D-Dimer 3148 ng/mLFEU (0-500) H 03/26/18 19:29 - Attending Attestation I performed an independent interview and examine this patient. I agree with the findings, assessment, and plan of Dr. Wilks, internal medicine resident. Pt is improved. Sepsis has resolved. Pt is day 4 of IV Zosyn. Fortunately no urine culture data available. Will change to po abx to complete a 10 day course of antibiotics. Patient will need close follow-up. Return immediately should he have fevers or any other problems. We again discussed the recommendation for an outpatient sleep study. Patient is stable for discharge. Urology follow up as arranged. Case dw pt and family at bedside. Gen: NAD, AAOx3, obese Lung CTAB Ht RRR Abd Soft + BS, NT Ext no edema
[2018-03-29] MEDS ORDERED: levoFLOXacin 500 MG TABLET PO SCH (14:15)
--- NOTE | 2018-03-29 16:04 | Discharge Summary ---
- NOTES TO OUTPATIENT PROVIDER Notes to Outpatient Provider: Candidate for outpatient sleep study, thank you Orders not resulted at time of discharge: Pending orders 03/26/18 13:25 Calculi (stone) Analysis Routine 03/30/18 04:00 Basic Metabolic Panel AM 0400 Complete Blood Count w/o Diff [HEME] AM 0400 Date of Encounter: 03/29/18 Time of Encounter: 10:00 - Discharge Diagnosis (1) Sepsis Priority: Primary Status: Acute Qualifiers: Sepsis type: sepsis due to unspecified organism Qualified Code(s): A41.9 - Sepsis, unspecified organism (2) Right ureteral calculus Priority: Primary Status: Acute (3) CAROL (acute kidney injury) Priority: Secondary Status: Acute (4) Diabetes Priority: Secondary Status: Acute Qualifiers: Diabetes mellitus type: type 2 Diabetes mellitus penitentiary insulin use: without terminal operations supervisor use Diabetes mellitus complication status: without complication Qualified Code(s): E11.9 - Type 2 diabetes mellitus without complications (5) Hypertension Priority: Secondary Status: Acute Qualifiers: Hypertension type: essential hypertension Qualified Code(s): I10 - Essential (primary) hypertension (6) Tachycardia Priority: Secondary Status: Resolved (7) UTI (urinary tract infection) Priority: Secondary Status: Acute Qualifiers: Urinary tract infection type: site unspecified Hematuria presence: without hematuria Qualified Code(s): N39.0 - Urinary tract infection, site not specified (8) DVT prophylaxis Priority: Secondary Status: Acute Hospital course: Mr. Grossman is a 52 year old male with pmhx of recurrent renal stones, gerd, dm2 , and hld, who presented to [facility] ED with 5 days of worsening right flank pain. He was admitted in the setting of sepsis 2/2 R uerter stone with mod obstructive uropathy, R stent was placed by urology, zosyn given for 4 days, patient tolerated stenting well, kidney function improved to 1.37 from 3.15, afebrile, normotensive, HR in the low 80s. He will be discharged with 7 days of Doxycycline 100mg PO. He plans to f/u with his PCP and urology in the coming week. - Time Spent with Patient Total time spent providing and/or coordinating discharge services: - Discharge Medications Prescriptions: Doxycycline 100 mg PO BID 7 Days #14 capsule Home Medications: Aspirin 81 mg PO DAILY 10/14/16 [History] Atenolol 100 mg PO DAILY 10/14/16 [History] Metformin HCl [Glucophage] 1,000 mg PO BID 10/14/16 [History] Ranitidine HCl [Zantac] 300 mg PO BID 10/14/16 [History] Triamterene/HCTZ 37.5/25mg [Dyazide] 1 tab PO DAILY 10/15/16 [History] Docusate [Colace] 100 mg PO BID #60 capsule 12/17/16 [Rx] Tamsulosin [Flomax] 0.4 mg PO DAILY #30 cap.er.24h 12/17/16 [Rx] Oxycodone HCl/Acetaminophen [Percocet 5-325 mg Tablet] 1 each PO Q6H PRN [History] Doxycycline 100 mg PO BID 7 Days #14 capsule 03/29/18 [Rx] Allergies/Adverse Reactions: 3 Allergy/AdvReac Type Severity Reaction Status Date / Time ciprofloxacin [From Cipro] Allergy Swelling Verified 12/17/16 12:26 of Lip/Tongue/Throat azithromycin AdvReac Vomiting Verified 12/17/16 12:26 codeine AdvReac Vomiting Verified 12/17/16 12:26 Date of admission: 03/26/18 12:39 Primary care physician: Zafar Hinton, Consults: 03/28/18 09:38 Consult to Occupational Therapy [CONS] Routine Comment: Evaluate, develop and implement POC Reason for Consult: Difficulty walking Does patient have active BEDREST order?: No Is patient medically & hemodynamically stable?: No Patient assessed for mobility or mobilized this visit?: No Consult to Physical Therapy [CONS] Routine Comment: Evaluate, develop and implement POC Reason for Consult: Difficulty walking Does patient have active BEDREST order?: No Is patient medically & hemodynamically stable?: Yes Patient assessed for mobility or mobilized this visit?: No Discharging clinician: Rory Wilks Anticipated date of discharge: 03/29/18 - Constitutional Vitals: Temp Pulse Resp BP Pulse Ox 98.4 F 77 16 134/84 94 03/29/18 07:55 03/29/18 07:55 03/29/18 07:55 03/29/18 07:55 03/29/18 07:55 General appearance: Present: A&O X 3, answers questions appropriately - Head Head exam: Present: atraumatic, normal inspection - Eye Eye exam: Present: PERRL, conjuntiva pink, sclera anicteric Pupils: Present: PERRL - Neck Neck exam general surgery: Present: supple, trachea midline. Absent: lymphadenopathy - Respiratory Respiratory exam: Present: CTAB. Absent: accessory muscle use, rales, rhonchi, wheezes - Cardiovascular Cardiovascular exam: Present: RRR, +S1, +S2. Absent: diastolic murmur, gallop, rubs, systolic murmur - GI/Abdominal GI/Abdominal exam: Present: normal bowel sounds, soft, no peritoneal signs. Absent: distended, tenderness - Extremities Exam Extremities exam: Present: warm, radial pulses palpable and symmetrical. Absent : calf tenderness, cyanotic, pedal edema - Neurological Exam Neurological exam: Present: CN II-XII intact, oriented X3, no focal deficits. Absent: pronater drift, facial droop, speech deficit - Skin Skin exam: Present: dry, intact - Patient Status Disposition: Home, Self-Care Condition: Fair Functional capacity at discharge: independent ambulation Overall status at discharge: patient is progressing back to baseline - Discharge Instructions Follow Up With: Zafar Hinton MD [Primary Care Provider] - Ton Jaime MD [Partnered Physician] - - Diet and Activity Activity: increase activity as tolerated, resume usual activities as tolerated Diet: diabetic diet - VTE Documentation of Mechanical Device: Intermittent pneumatic compression device
[2018-03-29 16:17] VITALS: BP 155/95
--- NOTE | 2018-03-29 17:31 | Physician Discharge Referral ---
Home Health/Hosp Referral Info Transfer to: Home Health - Diagnosis (1) Sepsis Status: Acute (2) Right ureteral calculus Status: Acute (3) CAROL (acute kidney injury) Status: Acute (4) Diabetes Status: Acute (5) Hypertension Status: Acute (6) Tachycardia Status: Resolved (7) UTI (urinary tract infection) Status: Acute (8) DVT prophylaxis Status: Acute - Respiratory Orders Smoking Cessation: Smoking cessation has been advised. For more information, call the [employer] Quit Line at 7-563-AYQY-NOW. - Activity Activity Orders: Ambulate - Services Needed Following services are medically necessary services: Physical Therapy - Transfer Medications Prescriptions: Doxycycline 100 mg PO BID 7 Days #14 capsule Home Medications: Aspirin 81 mg PO DAILY 10/14/16 [History] Atenolol 100 mg PO DAILY 10/14/16 [History] Metformin HCl [Glucophage] 1,000 mg PO BID 10/14/16 [History] Ranitidine HCl [Zantac] 300 mg PO BID 10/14/16 [History] Triamterene/HCTZ 37.5/25mg [Dyazide] 1 tab PO DAILY 10/15/16 [History] Docusate [Colace] 100 mg PO BID #60 capsule 12/17/16 [Rx] Tamsulosin [Flomax] 0.4 mg PO DAILY #30 cap.er.24h 12/17/16 [Rx] Oxycodone HCl/Acetaminophen [Percocet 5-325 mg Tablet] 1 each PO Q6H PRN [History] Doxycycline 100 mg PO BID 7 Days #14 capsule 03/29/18 [Rx] Allergies/Adverse Reactions: 3 Allergy/AdvReac Type Severity Reaction Status Date / Time ciprofloxacin [From Cipro] Allergy Swelling Verified 12/17/16 12:26 of Lip/Tongue/Throat azithromycin AdvReac Vomiting Verified 12/17/16 12:26 codeine AdvReac Vomiting Verified 12/17/16 12:26 Certification: Further, I certify that my clinical findings support that this patient is homebound (i.e. absences from home require considerable and taxing effort and are for medical reasons or spiritism services or infrequently or short duration when for other reasons) because: Homebound Reason: Leaving home requires considerable and taxing effort due to condition (Home health for physical therapy per review of therapy activity evaluation) Attestation: My signature below is to certify that this patient is under my care and that I, or nurse practitioner, or a physician's public services assistant working with me, has a face-to -face encounter with this patient.
== END 2018-03-29 18:04 | disposition home or self-care (01) | DRG 854 ==
LOC: EMEROO 08:20 → 2NENU 12:30
PROVIDERS: ADMIT Internal Medicine; ATTEND Internal Medicine

== ENCOUNTER 2018-06-02 08:06 | Inpatient (IN) ==
[2018-06-02] MEDS ORDERED: Isovue-370 500 ML INFUS..BTL IV ONE (08:30)
--- NOTE | 2018-06-02 08:34 | Emergency Department Note ---
Disposition Clinical Impression: Peritonitis, Sepsis Disposition: Admitted As Inpatient Condition: Serious Abdominal Pain HPI - General Chief Complaint: ED Abdominal Pain Stated Complaint: abd pain Time Seen by Provider: 06/02/18 08:16 Source: patient, family Mode of arrival: ambulatory Limitations: no limitations Nursing Notes Reviewed: Yes Vital Signs Reviewed: Yes - History of Present Illness HPI Narrative: 52 year old male with history of duodenal ulcer with perforation, abdomen abscess presents with acute abdominal pain. Pt stated It was constant cramping pain in left upper abdomen and radiate to left lower abdomen. Associate with nausea. No vomiting. No constipation or diarrhea. No chills and fever. Last time bowel movement was last night. Pt stated dr. Leal did the abdomen surgery for him three weeks ago. He is on Augmentin and Flagyl ever since. Pt also follows up with . Pt has history right kidney stone and sepsis. Pt is currently on ureteral stent. Pt also has history of diabetes and hypertension. Pt Subjective Complaint: abdominal pain Onset (ago): hour(s) (8) Consistency: constant Location: LUQ Pain Scale: 7 Quality: cramping Radiation: LUQ, RUQ - Related Data Home Medications Medication Instructions Recorded Confirmed Aspirin 81 mg PO DAILY 10/14/16 06/02/18 Metformin HCl [Glucophage] 1,000 mg PO BID 10/14/16 06/02/18 Triamterene/HCTZ 37.5/25mg 1 tab PO DAILY 10/15/16 06/02/18 [Dyazide] Losartan Potassium [Cozaar] 100 mg PO DAILY 04/04/18 06/02/18 hydrALAZINE [HydrALAZINE] 25 mg PO BID 04/04/18 06/02/18 Previous Rx's Medication Instructions Recorded Metoprolol [Lopressor] 75 mg PO BID 30 Days #60 tablet 04/24/18 Omeprazole [PriLOSEC] 20 mg PO BIDAC 30 Days #60 04/24/18 capsule. Amoxicillin/Clavulanate [Augmentin] 875 mg PO BIDWM 13 Days #26 tablet 04/25/18 Fluconazole [Diflucan] 200 mg PO DAILY 13 Days #13 tab 05/01/18 Linezolid [Zyvox] 600 mg PO BID 13 Days #26 tablet 05/01/18 Metoclopramide [Reglan] 5 mg PO Q6HR #28 ud.liq 05/01/18 Ondansetron ODT [Zofran ODT] 8 mg SL Q8HR #30 tab.rapdis 05/01/18 Allergies Allergy/AdvReac Type Severity Reaction Status Date / Time ciprofloxacin [From Cipro] Allergy Swelling Verified 06/02/18 13:16 of Lip/Tongue/Throat azithromycin AdvReac Vomiting Verified 06/02/18 13:16 codeine AdvReac Vomiting Verified 06/02/18 13:16 Constitutional: Denies: fever, chills, weakness, weight change Eyes: Denies: eye pain, eye discharge, vision change ENT ED: Denies: ear pain, throat pain, dental pain, hearing loss, epistaxis, congestion, dysphagia Cardiovascular: Denies: chest pain, palpitations, dyspnea on exertion, edema, syncope Respiratory: Denies: cough, dyspnea, wheezes, hemoptysis, stridor Gastrointestinal: Reports: abdominal pain, nausea. Denies: vomiting, diarrhea, constipation, hematemesis, melena, hematochezia Genitourinary: Denies: urgency, dysuria, frequency, hematuria Musculoskeletal: Denies: back pain, neck pain, arthralgia, myalgia Integumentary: Denies: rash, abrasion, lesions Neurological: Denies: headache, weakness, numbness, paresthesias, confusion, abnormal gait, vertigo Psychiatric: Denies: anxiety, depression, suicidal thoughts, homicidal thoughts , auditory hallucinations, visual hallucinations Endocrine: Denies: fatigue Hematological/Lymphatic: Denies: easy bleeding, easy bruising Allergic/Immunologic: Denies: facial swelling, urticaria Abdominal Pain PMH - Past Medical History Medical history: Reports: diabetes, GERD, hyperlipidemia, hypertension, kidney stones Male Surgical History: Reports: other Psychiatric history: Reports: no psych history - Social History Smoking status: Never smoker Alcohol use: Reports: none Drug use: Reports: none Physical Exam - General Limitations: no limitations General appearance: alert, in no apparent distress - Head Head exam: atraumatic, normocephalic, normal inspection - Eye Eye exam: Present: normal appearance, PERRL, EOMI - ENT ENT exam: normal exam, normal oropharynx, mucous membranes moist - Neck Neck exam: Present: normal inspection, full ROM, trachea midline - Chest Chest inspection: Present: normal inspection, symmetric chest wall rise - Respiratory Respiratory exam: Present: normal lung sounds bilaterally - Cardiovascular Cardiovascular exam: Present: regular rate, normal rhythm, normal heart sounds - Abdominal Exam Abdominal exam: Present: soft, tenderness Abdominal tenderness: Present: RUQ, LUQ, LLQ - Extremities Exam Extremities exam: Present: normal inspection, full ROM. Absent: tenderness, pedal edema - Back Exam Back exam: Present: normal inspection, full ROM. Absent: tenderness - Neurological Exam Neurological exam: Present: alert, oriented X3 - Psychiatric Psychiatric exam: Present: normal affect, normal mood - Skin Skin exam: Present: warm, dry, intact, normal color Course Vital Signs Temperature 98.2 F 06/02/18 08:09 Pulse Rate 144 06/02/18 08:09 Respiratory Rate 24 06/02/18 08:09 Blood Pressure 129/97 06/02/18 08:09 O2 Sat by Pulse Oximetry 96 06/02/18 08:09 Temperature 97.9 F 06/02/18 16:35 Pulse Rate 137 06/02/18 17:17 Respiratory Rate 18 06/02/18 17:17 Blood Pressure 140/92 06/02/18 17:17 O2 Sat by Pulse Oximetry 99 06/02/18 17:17 Oxygen Delivery Oxygen Delivery Room Air Abdominal Pain - MDM Narrative Medical decision making narrative: 50 year old male with history of duodenol ulcer, perforation and abscess, presents with acute abdominal pain since last night. Associate with nausea, no vomiting. Pt reported constant pain in left upper abdomen and radiate to left lower abdomen. Physical exam: Afebrile, pulse 144, abdomen soft, LUQ , LLQ and RUQ tender to palpation. Labs: lactic acid 5.1, white cell 14. 5 Pt met the criteria of sepsis. IV fluids given in ER. Dr. Weir saw the patient and spoke with radiologist about abd CT which suggested anastomotic leak versus recurrent are new perforated ulcer. Dr. Weir contact on-call surgeon and hospitalist. Septic protocal started. Pt will be admit to hospital for Peritonitis and sepsis. - Lab Data Lab results reviewed: Yes I reviewed the patient's lab results. Result diagrams: 06/02/18 10:06 06/02/18 08:48 Lab Results 06/02/18 06/02/18 06/02/18 Range/Units 08:38 08:48 08:48 WBC (4.3-11.1) K/mcL RBC (4.19-5.50) M/mcL Hgb (12.9-16.9) g/dL Hct (37.5-50.1) % MCV (83.0-100.0) fL MCH (28.0-33.3) pg MCHC (31.6-35.5) g/dL RDW (11.5-14.5) % Plt Count (140-400) K/mcL MPV (9.4-12.4) fL Immature Gran % (0-4) % Seg Neutrophils % % Lymphocytes % % Monocytes % % Eosinophils % % Basophils % % Neutrophils # (1.6-8.9) K/mcL Lymphocytes # (0.6-4.6) K/mcL Monocytes # (0.0-1.3) K/mcL Eosinophils # (0.0-0.6) K/mcL Basophils # (0.0-0.2) K/mcL Immature Plt Fraction (1.1-6.1) % Sodium 131 L (136-145) mEq/L Potassium 4.1 (3.5-5.1) mEq/L Chloride 97 L (98-107) mEq/L Carbon Dioxide 16 L (23-29) mEq/L BUN 33 H (6-20) mg/dL Creatinine 1.99 H (0.70-1.30) mg/dL Est GFR ( Amer) 43 L (> 60) Est GFR (Non-Af Amer) 35 L (> 60) BUN/Creatinine Ratio 17 (6-26) Glucose 209 H (70-105) mg/dL Calculated Osmolality 285 (280-300) Lactic Acid (0.5-2.2) mmol/L Calcium 9.3 (8.6-10.3) mg/dL Total Bilirubin 0.4 (0.3-1.0) mg/dL AST 13 (13-39) Units/L ALT 15 (7-52) Units/L Alkaline Phosphatase 96 (34-104) Units/L Serum Total Protein 7.2 (6.4-8.9) g/dL Albumin 3.9 (3.5-5.7) g/dL Globulin 3.3 (2.4-3.5) g/dL Albumin/Globulin Ratio 1.2 (1.1-2.2) Lipase 26 (11-82) Units/L Urine Color (Yellow) Urine Clarity (Clear) Urine pH (5.0-8.0) pH Units Ur Specific [place] (1.010-1.025) Urine Protein (Neg-Trace) mg/dL Urine Glucose (UA) (Normal) mg/dL Urine Ketones (Negative) mg/dL Urine Blood (Negative) Urine Nitrite (Negative) Urine Bilirubin (Negative) Urine Urobilinogen (Normal) mg/dL Ur Leukocyte Esterase (Negative) Urine Microscopic RBC (0-3) per hpf Urine Microscopic WBC (0-3) per hpf Ur Squamous Epith Cells (None-Few) per lpf Ur Transition Epith Cell (None-Few) per hpf Urine Bacteria (None-Few) per hpf Hyaline Casts (None-Few) per lpf Ur Culture Indicated? (NO) Specimen Rejected MCV Delta 06/02/18 06/02/18 06/02/18 Range/Units 09:18 09:18 10:06 WBC 14.5 H (4.3-11.1) K/mcL RBC 4.94 (4.19-5.50) M/mcL Hgb 13.8 (12.9-16.9) g/dL Hct 40.7 (37.5-50.1) % MCV 82.4 L (83.0-100.0) fL MCH 27.9 L (28.0-33.3) pg MCHC 33.9 (31.6-35.5) g/dL RDW 15.5 H (11.5-14.5) % Plt Count 235 (140-400) K/mcL MPV 9.6 (9.4-12.4) fL Immature Gran % 1.7 (0-4) % Seg Neutrophils % 88.9 % Lymphocytes % 5.9 % Monocytes % 3.2 % Eosinophils % 0.0 % Basophils % 0.3 % Neutrophils # 12.9 H (1.6-8.9) K/mcL Lymphocytes # 0.9 (0.6-4.6) K/mcL Monocytes # 0.5 (0.0-1.3) K/mcL Eosinophils # 0.0 (0.0-0.6) K/mcL Basophils # 0.1 (0.0-0.2) K/mcL Immature Plt Fraction 2.6 (1.1-6.1) % Sodium (136-145) mEq/L Potassium (3.5-5.1) mEq/L Chloride (98-107) mEq/L Carbon Dioxide (23-29) mEq/L BUN (6-20) mg/dL Creatinine (0.70-1.30) mg/dL Est GFR ( Amer) (> 60) Est GFR (Non-Af Amer) (> 60) BUN/Creatinine Ratio (6-26) Glucose (70-105) mg/dL Calculated Osmolality (280-300) Lactic Acid 5.1 H* (0.5-2.2) mmol/L Calcium (8.6-10.3) mg/dL Total Bilirubin (0.3-1.0) mg/dL AST (13-39) Units/L ALT (7-52) Units/L Alkaline Phosphatase (34-104) Units/L Serum Total Protein (6.4-8.9) g/dL Albumin (3.5-5.7) g/dL Globulin (2.4-3.5) g/dL Albumin/Globulin Ratio (1.1-2.2) Lipase (11-82) Units/L Urine Color Dark Yellow (Yellow) Urine Clarity Cloudy A (Clear) Urine pH 5.5 (5.0-8.0) pH Units Ur Specific [place] 1.016 (1.010-1.025) Urine Protein 100 H (Neg-Trace) mg/dL Urine Glucose (UA) Normal (Normal) mg/dL Urine Ketones Negative (Negative) mg/dL Urine Blood Large H (Negative) Urine Nitrite Negative (Negative) Urine Bilirubin Negative (Negative) Urine Urobilinogen Normal (Normal) mg/dL Ur Leukocyte Esterase Moderate H (Negative) Urine Microscopic RBC TNTC H (0-3) per hpf Urine Microscopic WBC 15-30 H (0-3) per hpf Ur Squamous Epith Cells Many H (None-Few) per lpf Ur Transition Epith Cell Few (None-Few) per hpf Urine Bacteria None Seen (None-Few) per hpf Hyaline Casts None Seen (None-Few) per lpf Ur Culture Indicated? NO. A (NO) Specimen Rejected - Radiology Data Radiology results reviewed: Yes I reviewed the patient's radiology results.
[2018-06-02] MEDS ORDERED: 0.9 % Sodium Chloride 1,000 ML IVC ONE ×3 (08:35→11:51)
[2018-06-02] MEDS ORDERED: *HR* FentaNYL (PF) 100 MCG/2 ML VIAL IVP ONE ×2 (08:35→11:27)
--- NOTE | 2018-06-02 08:35 | Emergency Department Note ---
Disposition Clinical Impression: Peritonitis Sepsis Qualifiers: Sepsis type: sepsis due to unspecified organism Qualified Code(s): A41.9 - Sepsis, unspecified organism Disposition: Admitted As Inpatient Condition: Serious Referrals: Zafar Hinton MD [Primary Care Provider] - Forms: ED Satisfaction Letter, Work/School Release Time of Disposition: 11:22 General Adult HPI - General Chief complaint: ED Abdominal Pain Stated complaint: abd pain Time Seen by Provider: 06/02/18 08:16 Source: patient, family Limitations: no limitations - History of Present Illness Pain Scale: 7 - Related Data Home Medications Medication Instructions Recorded Confirmed Aspirin 81 mg PO DAILY 10/14/16 04/04/18 Metformin HCl [Glucophage] 1,000 mg PO BID 10/14/16 04/04/18 Triamterene/HCTZ 37.5/25mg 1 tab PO DAILY 10/15/16 04/04/18 [Dyazide] Losartan Potassium [Cozaar] 100 mg PO DAILY 04/04/18 04/04/18 hydrALAZINE [HydrALAZINE] 25 mg PO BID 04/04/18 04/04/18 Previous Rx's Medication Instructions Recorded Metoprolol [Lopressor] 75 mg PO BID 30 Days #60 tablet 04/24/18 Omeprazole [PriLOSEC] 20 mg PO BIDAC 30 Days #60 04/24/18 capsule. Amoxicillin/Clavulanate [Augmentin] 875 mg PO BIDWM 13 Days #26 tablet 04/25/18 Cefdinir [Omnicef] 300 mg PO BID #26 capsule 05/01/18 Fluconazole [Diflucan] 200 mg PO DAILY 13 Days #13 tab 05/01/18 Linezolid [Zyvox] 600 mg PO BID 13 Days #26 tablet 05/01/18 Metoclopramide [Reglan] 5 mg PO Q6HR #28 ud.liq 05/01/18 Ondansetron ODT [Zofran ODT] 8 mg SL Q8HR #30 tab.rapdis 05/01/18 Oxycodone HCl 5 mg PO Q6HR PRN 3 Days #12 tablet 05/01/18 Promethazine [Phenergan] 12.5 mg IVP Q6HR PRN vial 05/01/18 metroNIDAZOLE [Flagyl] 500 mg PO TID #40 tablet 05/01/18 Allergies Allergy/AdvReac Type Severity Reaction Status Date / Time ciprofloxacin [From Cipro] Allergy Swelling Verified 04/04/18 16:55 of Lip/Tongue/Throat azithromycin AdvReac Vomiting Verified 04/04/18 16:55 codeine AdvReac Vomiting Verified 04/04/18 16:55 Past Medical History - Past Medical History Medical history: Reports: diabetes, GERD, hyperlipidemia, hypertension, kidney stones Surgical history: Reports: cataract, cholecystectomy, herniorrhaphy, orthopedic , other Psychiatric history: Reports: no psych history - Social History Smoking Status: Never smoker Smokeless Tobacco Status: No Alcohol use: Reports: none Drug use: Reports: none Physical Exam - General Limitations: no limitations General appearance: alert, in no apparent distress Course Vital Signs Temperature 98.2 F 06/02/18 08:09 Pulse Rate 144 06/02/18 08:09 Respiratory Rate 24 06/02/18 08:09 Blood Pressure 129/97 06/02/18 08:09 O2 Sat by Pulse Oximetry 96 06/02/18 08:09 Temperature 98.2 F 06/02/18 08:26 Pulse Rate 128 06/02/18 11:20 Respiratory Rate 22 06/02/18 11:20 Blood Pressure 111/95 06/02/18 11:20 O2 Sat by Pulse Oximetry 97 06/02/18 11:20 Oxygen Delivery Oxygen Delivery Room Air Medical Decision Making - Medical Records Medical records reviewed: Yes I reviewed the patient's medical records. - Lab Data Lab results reviewed: Yes I reviewed the patient's lab results. Result diagrams: 06/02/18 10:06 06/02/18 08:48 Lab Results 06/02/18 06/02/18 06/02/18 Range/Units 08:38 08:48 08:48 WBC (4.3-11.1) K/mcL RBC (4.19-5.50) M/mcL Hgb (12.9-16.9) g/dL Hct (37.5-50.1) % MCV (83.0-100.0) fL MCH (28.0-33.3) pg MCHC (31.6-35.5) g/dL RDW (11.5-14.5) % Plt Count (140-400) K/mcL MPV (9.4-12.4) fL Immature Gran % (0-4) % Seg Neutrophils % % Lymphocytes % % Monocytes % % Eosinophils % % Basophils % % Neutrophils # (1.6-8.9) K/mcL Lymphocytes # (0.6-4.6) K/mcL Monocytes # (0.0-1.3) K/mcL Eosinophils # (0.0-0.6) K/mcL Basophils # (0.0-0.2) K/mcL Immature Plt Fraction (1.1-6.1) % Sodium 131 L (136-145) mEq/L Potassium 4.1 (3.5-5.1) mEq/L Chloride 97 L (98-107) mEq/L Carbon Dioxide 16 L (23-29) mEq/L BUN 33 H (6-20) mg/dL Creatinine 1.99 H (0.70-1.30) mg/dL Est GFR ( Amer) 43 L (> 60) Est GFR (Non-Af Amer) 35 L (> 60) BUN/Creatinine Ratio 17 (6-26) Glucose 209 H (70-105) mg/dL Calculated Osmolality 285 (280-300) Lactic Acid (0.5-2.2) mmol/L Calcium 9.3 (8.6-10.3) mg/dL Total Bilirubin 0.4 (0.3-1.0) mg/dL AST 13 (13-39) Units/L ALT 15 (7-52) Units/L Alkaline Phosphatase 96 (34-104) Units/L Serum Total Protein 7.2 (6.4-8.9) g/dL Albumin 3.9 (3.5-5.7) g/dL Globulin 3.3 (2.4-3.5) g/dL Albumin/Globulin Ratio 1.2 (1.1-2.2) Lipase 26 (11-82) Units/L Urine Color (Yellow) Urine Clarity (Clear) Urine pH (5.0-8.0) pH Units Ur Specific [place] (1.010-1.025) Urine Protein (Neg-Trace) mg/dL Urine Glucose (UA) (Normal) mg/dL Urine Ketones (Negative) mg/dL Urine Blood (Negative) Urine Nitrite (Negative) Urine Bilirubin (Negative) Urine Urobilinogen (Normal) mg/dL Ur Leukocyte Esterase (Negative) Urine Microscopic RBC (0-3) per hpf Urine Microscopic WBC (0-3) per hpf Ur Squamous Epith Cells (None-Few) per lpf Ur Transition Epith Cell (None-Few) per hpf Urine Bacteria (None-Few) per hpf Hyaline Casts (None-Few) per lpf Ur Culture Indicated? (NO) Specimen Rejected MCV Delta 06/02/18 06/02/18 06/02/18 Range/Units 09:18 09:18 10:06 WBC 14.5 H (4.3-11.1) K/mcL RBC 4.94 (4.19-5.50) M/mcL Hgb 13.8 (12.9-16.9) g/dL Hct 40.7 (37.5-50.1) % MCV 82.4 L (83.0-100.0) fL MCH 27.9 L (28.0-33.3) pg MCHC 33.9 (31.6-35.5) g/dL RDW 15.5 H (11.5-14.5) % Plt Count 235 (140-400) K/mcL MPV 9.6 (9.4-12.4) fL Immature Gran % 1.7 (0-4) % Seg Neutrophils % 88.9 % Lymphocytes % 5.9 % Monocytes % 3.2 % Eosinophils % 0.0 % Basophils % 0.3 % Neutrophils # 12.9 H (1.6-8.9) K/mcL Lymphocytes # 0.9 (0.6-4.6) K/mcL Monocytes # 0.5 (0.0-1.3) K/mcL Eosinophils # 0.0 (0.0-0.6) K/mcL Basophils # 0.1 (0.0-0.2) K/mcL Immature Plt Fraction 2.6 (1.1-6.1) % Sodium (136-145) mEq/L Potassium (3.5-5.1) mEq/L Chloride (98-107) mEq/L Carbon Dioxide (23-29) mEq/L BUN (6-20) mg/dL Creatinine (0.70-1.30) mg/dL Est GFR ( Amer) (> 60) Est GFR (Non-Af Amer) (> 60) BUN/Creatinine Ratio (6-26) Glucose (70-105) mg/dL Calculated Osmolality (280-300) Lactic Acid 5.1 H* (0.5-2.2) mmol/L Calcium (8.6-10.3) mg/dL Total Bilirubin (0.3-1.0) mg/dL AST (13-39) Units/L ALT (7-52) Units/L Alkaline Phosphatase (34-104) Units/L Serum Total Protein (6.4-8.9) g/dL Albumin (3.5-5.7) g/dL Globulin (2.4-3.5) g/dL Albumin/Globulin Ratio (1.1-2.2) Lipase (11-82) Units/L Urine Color Dark Yellow (Yellow) Urine Clarity Cloudy A (Clear) Urine pH 5.5 (5.0-8.0) pH Units Ur Specific [place] 1.016 (1.010-1.025) Urine Protein 100 H (Neg-Trace) mg/dL Urine Glucose (UA) Normal (Normal) mg/dL Urine Ketones Negative (Negative) mg/dL Urine Blood Large H (Negative) Urine Nitrite Negative (Negative) Urine Bilirubin Negative (Negative) Urine Urobilinogen Normal (Normal) mg/dL Ur Leukocyte Esterase Moderate H (Negative) Urine Microscopic RBC TNTC H (0-3) per hpf Urine Microscopic WBC 15-30 H (0-3) per hpf Ur Squamous Epith Cells Many H (None-Few) per lpf Ur Transition Epith Cell Few (None-Few) per hpf Urine Bacteria None Seen (None-Few) per hpf Hyaline Casts None Seen (None-Few) per lpf Ur Culture Indicated? NO. A (NO) Specimen Rejected - Radiology Data Radiology results reviewed: Yes I reviewed the patient's radiology results. Critical Care Time Critical Care Time: Yes Total Critical Care Time: 45 Attestation: The high probability of a clinically significant, sudden or life threatening deterioration of the [] system(s) required my full and direct attention, intervention and personal management. The aggregate critical care time was [] minutes. This time is in addition to time spent performing reported procedures but includes the following: [] Data Review and interpretation [] Patient assessment and monitoring of vital signs [] Documentation [] Medication orders and management Attestation Statement - Attestation Attestation: For this encounter, I have reviewed the PROGRAM ENGAGEMENT DIRECTOR or PA documentation, treatment plan, and medical decision making; and I have had face to face time with this patient. [id number] time provided Patient presents with abdominal pain. Patient has a history of a perforated duodenal ulcer approx 8 weeks ago. Underwent surgical repair per Dr. Serrano at that time. Patient tachycardic upon arrival. Otherwise appears in NAD 10:36: Patient meets criteria for SIRS, (severe sepsis: tachycardia, tachypnea , leukocystosis, elevated lactate). Source pending 11:21: CT findings discussed with the radiologist. She conveys concern for a viscous leak versus recurrent gastric antral ulcer. Call placed to surgery on- call 11:52: Dr. Maria recs PT/INR, NG tube.
[2018-06-02] MEDS ORDERED: Ondansetron 4 MG/2 ML VIAL IVP ONE (09:30)
[2018-06-02 09:33] LABS: Albumin 3.9 g/dL (3.5-5.7); Albumin/Globulin Ratio 1.2 (1.1-2.2); Bilirubin,Total 0.4 mg/dL (0.3-1.0); Calcium 9.3 mg/dL (8.6-10.3); Globulin 3.3 g/dL (2.4-3.5); Potassium 4.1 mEq/L (3.5-5.1); Total Protein 7.2 g/dL (6.4-8.9)
[2018-06-02 09:36] LABS: Bilirubin,Urine Negative (Negative); Blood,Urine Large (Negative); Clarity,Urine Cloudy (Clear); Color,Urine Dark Yellow (Yellow); Glucose,Urine (UA) Normal (Normal); Ketones,Urine Negative (Negative); Leukocyte Esterase,Urine Moderate (Negative); Nitrite,Urine Negative (Negative); PH,Urine 5.5 pH Units (5.0-8.0); Protein,Urine 100 mg/dL (Neg-Trace); Specific Gravity,Urine 1.016 (1.010-1.025); Urobilinogen,Urine Normal (Normal)
[2018-06-02 09:38] LABS: Bacteria,Urine None Seen per hpf (None-Few); Hyaline Casts,Urine None Seen per lpf (None-Few); RBC,Urine TNTC per hpf (0-3); Squamous Epithelial Cell,Urine Many per lpf (None-Few); WBC,Urine 15-30 per hpf (0-3)
[2018-06-02 09:49] LABS: Transitional Epi Cells,Urine Few per hpf (None-Few)
[2018-06-02 10:14] LABS: Basophils # 0.1 K/mcL (0.0-0.2); Basophils % 0.3 %; Hematocrit 40.7 % (37.5-50.1); Hemoglobin 13.8 g/dL (12.9-16.9); Immature Granulocytes % 1.7 % (0-4); Immature Platelets 2.6 % (1.1-6.1); Lymphocytes # 0.9 K/mcL (0.6-4.6); Lymphocytes % 5.9 %; Mean Corpuscular HGB Conc 33.9 g/dL (31.6-35.5); Mean Corpuscular Hemoglobin 27.9 pg (28.0-33.3); Mean Corpuscular Volume 82.4 fL (83.0-100.0); Mean Platelet Volume 9.6 fL (9.4-12.4); Monocytes # 0.5 K/mcL (0.0-1.3); Monocytes % 3.2 %; Neutrophils # 12.9 K/mcL (1.6-8.9); Platelet Count 235 K/mcL (140-400); Red Blood Count 4.94 M/mcL (4.19-5.50); Red Cell Distribution Width 15.5 % (11.5-14.5); Segmented Neutrophils % 88.9 %
[2018-06-02] MEDS ORDERED: Isovue-370 500 ML INFUS..BTL PO ONE (10:55)
[2018-06-02] MEDS ORDERED: Piperacillin/Tazobactam 3.375 GM in 0.9 % Sodium Chloride Mini Bag 100 ML IVPB ONE (11:20)
[2018-06-02] MEDS ORDERED: MetroNIDAZOLE 500 MG/100 ML 500 MG/100 ML BAG IVPB ONE (11:20)
--- NOTE | 2018-06-02 12:00 | General Surgery Consult Note ---
<Hawa Carlos - Last Filed: 06/02/18 12:27> Date of Encounter: 06/02/18 Time of Encounter: 12:00 Assessment and Plan (1) Pneumoperitoneum Current Visit: Yes Status: Acute Patient is well known to [facility]. History of perforated duodenum and Khanh patch. Reports abdominal pain starting at the left mid abdomen and then becoming diffuse across the entire mid to lower abdomen. He is unable to state whether this is similar to his previous pain as it is not a severe. His CT notes thickening of the gastric antrum, adjacent fat stranding and soft tissue attenuation, extra luminal gas, small to moderate amount of non-dependent abdominal free intraperitoneal air, intraperitoneal fluid. His exam and imaging are consistent with the pneumoperitoneum. He is recommended to undergo an exploratory laparotomy, possible bowel resection, possible ostomy formation. The recommendations, risks, and benefits were reviewed with the patient and his and he is agreeable to proceed. A signed consent is placed on the hard chart. Plan (in addition to above): NPO IV ATBX IVF GI and DVT prophylaxis Incentive spirometry History of Present Illness Consult date: 06/02/18 (Dr. Carlyn Maria) Reason for consult: abdominal pain Requesting physician: Neo Weir History of present illness: Surgery (Dr. Carlyn Maria) has been consult did for concern of free air/ pneumoperitoneum. Mr. Mosher's past medical, surgical, and social history have been reviewed per the EMR. Mr. Mosher is a 52-year-old male who is well known to [facility]. He has a most recent history of a perforated viscous (felt 2/2 NSAID use)March for which he was treated with a khanh patch. He saw Dr. Serrano in follow- up on 05/12/2018 at which time he was noted to have intermittent nausea and vomiting which was treated with Reglan syrup and Zofran, but otherwise recovering as expected, and consideration was given to a repeat EGD and 6 to 8 weeks pending clinical course. He also followed with infectious disease for an abdominal abscess secondary to the perforated viscous. He saw Dr. Dave on 05/14 at which time he was recommended to continue Augmentin and Diflucan. A CT scan of the abdomen and pelvis on 05/12 noted fluid collection that was 3 x 3 cm in diameter. He had planned to repeat this CAT scan on 06/03/2018. Of note his previous clinical course included 5 weeks of antibiotics for PACO treatment with Zyvox followed by daptomycin and then an additional 2 weeks of Zyvox. He denies fever or chills. He endorses abdominal discomfort that is sharp and cramping, 8 out of 10, started approximately 6 to 8 hours ago, started in the left mid to lower quadrant and then progressed to diffuse in the mid-and lower quadrants of the abdomen. He denies any mitigating factors but states movement makes it worse. Pain medication has slightly relieved his discomfort. He is unable to differentiate this pain as compared to the previous episode because he states the previous episode "was just the worst pain in my life and I cannot describe it." He denies vomiting but endorses nausea. He denies black, bloody , tarry stool or coffee ground/bright red blood emesis. He reports intermittent issues with urination as he has an ongoing kidney stone. He states feelings of generalized weakness and difficulty gaining his endurance back after his previous surgery but does note that this is improving. He denies any other changes in his past medical history. Past Med Surg Social Fam HX - Past Medical History Medical history: diabetes, GERD, hyperlipidemia, hypertension, kidney stones Psychiatric history: no psych history - Past Surgical History Surgical History: cataract, cholecystectomy, herniorrhaphy, orthopedic, other Additional surgical history: LEFT FOOT SURGERY WITH RODS IN FOOT, BILT KNEE SURGERY, HERNIA REPAIR, EYE IMPLANTS - Social History Smoking Status: Never smoker Smokeless Tobacco Status: No Alcohol use: none Drug use: none - Family History Mother Living Status: Hx Family Cardiac Disorders: Yes (HTN) Hx Family GI Disorders: Yes (GERD) Medications and Allergies Aspirin 81 mg PO DAILY 10/14/16 [History] Metformin HCl [Glucophage] 1,000 mg PO BID 10/14/16 [History] Triamterene/HCTZ 37.5/25mg [Dyazide] 1 tab PO DAILY 10/15/16 [History] Losartan Potassium [Cozaar] 100 mg PO DAILY 04/04/18 [History] hydrALAZINE [HydrALAZINE] 25 mg PO BID 04/04/18 [History] Metoprolol [Lopressor] 75 mg PO BID 30 Days #60 tablet 04/24/18 [Rx] Omeprazole [PriLOSEC] 20 mg PO BIDAC 30 Days #60 capsule. 04/24/18 [Rx] Amoxicillin/Clavulanate [Augmentin] 875 mg PO BIDWM 13 Days #26 tablet 04/25/18 [Rx] Fluconazole [Diflucan] 200 mg PO DAILY 13 Days #13 tab 05/01/18 [Rx] Linezolid [Zyvox] 600 mg PO BID 13 Days #26 tablet 05/01/18 [Rx] Metoclopramide [Reglan] 5 mg PO Q6HR #28 ud.liq 05/01/18 [Rx] Ondansetron ODT [Zofran ODT] 8 mg SL Q8HR #30 tab.rapdis 05/01/18 [Rx] 3 Allergy/AdvReac Type Severity Reaction Status Date / Time ciprofloxacin [From Cipro] Allergy Swelling Verified 06/02/18 13:16 of Lip/Tongue/Throat azithromycin AdvReac Vomiting Verified 06/02/18 13:16 codeine AdvReac Vomiting Verified 06/02/18 13:16 Review of Systems All systems PM: reviewed and no additional remarkable complaints except as stated All systems PM: The remainder of the systems were reviewed and are negative General Surgery Exam Initial Vital Signs Temp Pulse Resp BP Pulse Ox 98.2 F 144 24 129/97 96 06/02/18 08:09 06/02/18 08:09 06/02/18 08:09 06/02/18 08:09 06/02/18 08:09 VITAL SIGNS: Reviewed. See [facility] GENERAL: appears uncomfortable but is in no distress. HEENT: Normocephalic, atraumatic, extraocular motions intact, oropharynx is pink and moist, there is no neck adenopathy or JVD noted. CHEST/RESPIRATORY: The thorax is free from signs of trauma. Lung sounds: decreased breath sounds. Decreased respiratory effort. CARDIAC: Regular rate and rhythm. Normal S1 and S2, without murmurs, gallops, or rubs. VASCULAR: 2+ peripheral pulses. ABDOMEN: obese, protuberant, firm, active bowel sounds, involuntary guarding, significant tenderness to light palpation MUSCULOSKELETAL: Good range of motion of all major joints. Extremities without clubbing, cyanosis or edema. NEUROLOGIC EXAM: Alert and oriented x 3. Speech normal. Follows commands. PSYCHIATRIC: Mood normal. SKIN: Gen. brawny appearance to skin. Multiple blackheads noted to the face. Skin tags noted. Exam Initial Vital Signs Temp Pulse Resp BP Pulse Ox 98.2 F 144 24 129/97 96 06/02/18 08:09 06/02/18 08:09 06/02/18 08:09 06/02/18 08:09 06/02/18 08:09 Results - Labs 06/02/18 10:06 06/02/18 08:48 Abnormal lab results WBC 14.5 K/mcL (4.3-11.1) H 06/02/18 10:06 MCV 82.4 fL (83.0-100.0) L 06/02/18 10:06 MCH 27.9 pg (28.0-33.3) L 06/02/18 10:06 RDW 15.5 % (11.5-14.5) H 06/02/18 10:06 Neutrophils # 12.9 K/mcL (1.6-8.9) H 06/02/18 10:06 Sodium 131 mEq/L (136-145) L 06/02/18 08:48 Chloride 97 mEq/L (98-107) L 06/02/18 08:48 Carbon Dioxide 16 mEq/L (23-29) L 06/02/18 08:48 BUN 33 mg/dL (6-20) H 06/02/18 08:48 Creatinine 1.99 mg/dL (0.70-1.30) H 06/02/18 08:48 Est GFR ( Amer) 43 (> 60) L 06/02/18 08:48 Est GFR (Non-Af Amer) 35 (> 60) L 06/02/18 08:48 Glucose 209 mg/dL (70-105) H 06/02/18 08:48 Lactic Acid 5.1 mmol/L (0.5-2.2) H* 06/02/18 09:18 Urine Clarity Cloudy (Clear) A 06/02/18 09:18 Urine Protein 100 mg/dL (Neg-Trace) H 06/02/18 09:18 Urine Blood Large (Negative) H 06/02/18 09:18 Ur Leukocyte Esterase Moderate (Negative) H 06/02/18 09:18 Urine Microscopic RBC TNTC per hpf (0-3) H 06/02/18 09:18 Urine Microscopic WBC 15-30 per hpf (0-3) H 06/02/18 09:18 Ur Squamous Epith Cells Many per lpf (None-Few) H 06/02/18 09:18 Ur Culture Indicated? NO. (NO) A 06/02/18 09:18 Diabetes panel 06/02/18 Range/Units 08:48 Sodium 131 L (136-145) mEq/L Potassium 4.1 (3.5-5.1) mEq/L Chloride 97 L (98-107) mEq/L Carbon Dioxide 16 L (23-29) mEq/L BUN 33 H (6-20) mg/dL Creatinine 1.99 H (0.70-1.30) mg/dL Glucose 209 H (70-105) mg/dL Calcium 9.3 (8.6-10.3) mg/dL AST 13 (13-39) Units/L ALT 15 (7-52) Units/L Alkaline Phosphatase 96 (34-104) Units/L Albumin 3.9 (3.5-5.7) g/dL Calcium panel 06/02/18 Range/Units 08:48 Calcium 9.3 (8.6-10.3) mg/dL Albumin 3.9 (3.5-5.7) g/dL Pituitary panel 06/02/18 Range/Units 08:48 Sodium 131 L (136-145) mEq/L Potassium 4.1 (3.5-5.1) mEq/L Chloride 97 L (98-107) mEq/L Carbon Dioxide 16 L (23-29) mEq/L BUN 33 H (6-20) mg/dL Creatinine 1.99 H (0.70-1.30) mg/dL Glucose 209 H (70-105) mg/dL Calcium 9.3 (8.6-10.3) mg/dL Adrenal panel 06/02/18 Range/Units 08:48 Sodium 131 L (136-145) mEq/L Potassium 4.1 (3.5-5.1) mEq/L Chloride 97 L (98-107) mEq/L Carbon Dioxide 16 L (23-29) mEq/L BUN 33 H (6-20) mg/dL Creatinine 1.99 H (0.70-1.30) mg/dL Glucose 209 H (70-105) mg/dL Calcium 9.3 (8.6-10.3) mg/dL Total Bilirubin 0.4 (0.3-1.0) mg/dL AST 13 (13-39) Units/L ALT 15 (7-52) Units/L Alkaline Phosphatase 96 (34-104) Units/L Albumin 3.9 (3.5-5.7) g/dL All other labs normal. - Imaging CT scan - abdomen: report reviewed, image reviewed CT scan - pelvis: report reviewed, image reviewed Consult Discharge Plan - Plan Referrals: Zafra Hinton MD [Primary Care Provider] - <Carlyn Maria - Last Filed: 06/02/18 13:49> Date of Encounter: 06/02/18 Assessment and Plan (1) Pneumoperitoneum Current Visit: Yes Status: Acute I discussed with patient and his his CT results, labs, previous surgery and exam findings. IT would appear on imaging he may have a distal gastric perforation this time as CT shows duodenum to be intact and not inflammed. Discussed that I am unable to know for sure his current pathology until the time of surgery. Discussed possible antrectomy, B2 anastomosis, bowel resection/ ostomy. Risks and benefits discussed and he wishes to proceed. Review of Systems All systems PM: The remainder of the systems were reviewed and are negative General Surgery Exam Initial Vital Signs Temp Pulse Resp BP Pulse Ox 98.2 F 144 24 129/97 96 06/02/18 08:09 06/02/18 08:09 06/02/18 08:09 06/02/18 08:09 06/02/18 08:09 Exam Initial Vital Signs Temp Pulse Resp BP Pulse Ox 98.2 F 144 24 129/97 96 06/02/18 08:09 06/02/18 08:09 06/02/18 08:09 06/02/18 08:09 06/02/18 08:09 Results - Labs 06/02/18 10:06 06/02/18 08:48 Abnormal lab results WBC 14.5 K/mcL (4.3-11.1) H 06/02/18 10:06 MCV 82.4 fL (83.0-100.0) L 06/02/18 10:06 MCH 27.9 pg (28.0-33.3) L 06/02/18 10:06 RDW 15.5 % (11.5-14.5) H 06/02/18 10:06 Neutrophils # 12.9 K/mcL (1.6-8.9) H 06/02/18 10:06 Sodium 131 mEq/L (136-145) L 06/02/18 08:48 Chloride 97 mEq/L (98-107) L 06/02/18 08:48 Carbon Dioxide 16 mEq/L (23-29) L 06/02/18 08:48 BUN 33 mg/dL (6-20) H 06/02/18 08:48 Creatinine 1.99 mg/dL (0.70-1.30) H 06/02/18 08:48 Est GFR ( Amer) 43 (> 60) L 06/02/18 08:48 Est GFR (Non-Af Amer) 35 (> 60) L 06/02/18 08:48 Glucose 209 mg/dL (70-105) H 06/02/18 08:48 Lactic Acid 5.1 mmol/L (0.5-2.2) H* 06/02/18 09:18 Urine Clarity Cloudy (Clear) A 06/02/18 09:18 Urine Protein 100 mg/dL (Neg-Trace) H 06/02/18 09:18 Urine Blood Large (Negative) H 06/02/18 09:18 Ur Leukocyte Esterase Moderate (Negative) H 06/02/18 09:18 Urine Microscopic RBC TNTC per hpf (0-3) H 06/02/18 09:18 Urine Microscopic WBC 15-30 per hpf (0-3) H 06/02/18 09:18 Ur Squamous Epith Cells Many per lpf (None-Few) H 06/02/18 09:18 Ur Culture Indicated? NO. (NO) A 06/02/18 09:18 All other labs normal.
[2018-06-02] MEDS ORDERED: Fluconazole 200 MG/100 ML 200 MG/100 ML BAG IVPB ONE (12:01)
[2018-06-02] MEDS ORDERED: *HR* Promethazine 25 MG/ML VIAL IVP ONE (12:47)
[2018-06-02] MEDS ORDERED: *HR* Promethazine 25 MG/ML VIAL ONE (12:51)
--- NOTE | 2018-06-02 12:55 | Anesthesia Evaluation PreOp ---
Date of Encounter: 06/02/18 Time of Encounter: 12:53 - Past History Planned Operation: Exlap Cardiac History: HTN, Hyperlipidemia Pulmonary History: Denies Any Significant HX MANAGER BIOSTATISTICS History: Denies Any Significant HX Other Medical History: Renal (stones), Diabetes Type II Anesthesia History: No Prior Anesthetic Complications, Past Anesthesia (Exlap, Khanh patch, hernia repair, [place]ota knees) Alcohol Use: none Drug use: none Medications and Allergies Aspirin 81 mg PO DAILY 10/14/16 [History] Metformin HCl [Glucophage] 1,000 mg PO BID 10/14/16 [History] Triamterene/HCTZ 37.5/25mg [Dyazide] 1 tab PO DAILY 10/15/16 [History] Losartan Potassium [Cozaar] 100 mg PO DAILY 04/04/18 [History] hydrALAZINE [HydrALAZINE] 25 mg PO BID 04/04/18 [History] Metoprolol [Lopressor] 75 mg PO BID 30 Days #60 tablet 04/24/18 [Rx] Omeprazole [PriLOSEC] 20 mg PO BIDAC 30 Days #60 capsule.dr 04/24/18 [Rx] Amoxicillin/Clavulanate [Augmentin] 875 mg PO BIDWM 13 Days #26 tablet 04/25/18 [Rx] Fluconazole [Diflucan] 200 mg PO DAILY 13 Days #13 tab 05/01/18 [Rx] Linezolid [Zyvox] 600 mg PO BID 13 Days #26 tablet 05/01/18 [Rx] Metoclopramide [Reglan] 5 mg PO Q6HR #28 ud.liq 05/01/18 [Rx] Ondansetron ODT [Zofran ODT] 8 mg SL Q8HR #30 tab.rapdis 05/01/18 [Rx] 3 Allergy/AdvReac Type Severity Reaction Status Date / Time ciprofloxacin [From Cipro] Allergy Swelling Verified 06/02/18 13:16 of Lip/Tongue/Throat azithromycin AdvReac Vomiting Verified 06/02/18 13:16 codeine AdvReac Vomiting Verified 06/02/18 13:16 - Meds/Allergy Pre-op Review Medications Reviewed: Yes Allergies Reviewed: Yes Beta Blockers on Current Med List: Yes If Beta Blockers taken, Date/Time (Last Dose taken): am 06/01/18 Anesthesia Results - Labs 06/02/18 10:06 06/02/18 08:48 - Imaging EKG: report reviewed (03/2018 NSR) Anesthesia Exam Vital Signs/O2 Sat, Most Current Temp Pulse Resp BP Pulse Ox 98.2 F 127 22 146/94 96 06/02/18 08:26 06/02/18 12:35 06/02/18 12:35 06/02/18 12:35 06/02/18 12:35 Weight: 104kg - HEENT Pupil (Motor): Pupils equal, EOMI Mallampati: IV (easily intubated with glidescope per 03/2018 anesthesia record) Teeth: Normal (i) Oral Opening: Greater than 3 - MANAGER BIOSTATISTICS LOC: Oriented MANAGER BIOSTATISTICS Motor: Normal RUE, Normal LUE, Normal RLE, Normal LLE, Normal Face MANAGER BIOSTATISTICS Sensory: Normal: RUE, LUE, RLE, LLE, Face - Cardiac Rhythm: Regular - Pulmonary Breath Sounds: bilateral Clear Respiratory Effort: Symmetrical Anesthesia Assess/Plan ASA Score: 3 Modified Artemio Scale for Level of Consciousness: Cooperative, oriented, and tranquil Anesthetic Plan: General Monitoring Plan: Standard Monitors Recovery Plan: ICU
[2018-06-02] MEDS ORDERED: *HR* Rocuronium Bromide 50 MG/5 ML VIAL ONE ×2 (12:59→15:57)
[2018-06-02] MEDS ORDERED: *HR* Succinylcholine 200 MG/10 ML VIAL IVP ONE (12:59)
[2018-06-02] MEDS ORDERED: Lidocaine -MPF 2% 2 ML VIAL ONE (12:59)
[2018-06-02] MEDS ORDERED: *HR* FentaNYL (PF) 100 MCG/2 ML VIAL ONE ×2 (13:00→15:34)
[2018-06-02] MEDS ORDERED: *HR* Propofol 200 MG/20 ML VIAL IVP ONE ×2 (13:00→15:59)
[2018-06-02 14:07] LABS: INR 1.1; Prothrombin Time 12.9 Seconds (9.4-12.1)
[2018-06-02] MEDS ORDERED: Scopolamine Patch 1.5 MG PATCH.TD72 ONE (14:34)
[2018-06-02] MEDS ORDERED: Dexamethasone 4 MG/ML VIAL ONE (15:28)
[2018-06-02] MEDS ORDERED: Ondansetron 4 MG/2 ML VIAL ONE (15:28)
[2018-06-02 16:49] LABS: ABG Base Excess -8 mEq/L (-2 to 3); ABG HCO3 20 mEq/L (21-27); ABG Oxygen Saturation 91 % (95-98); ABG PCO2 47 mmHg (35-45); ABG PH 7.23 pH Units (7.32-7.45); ABG PO2 72 mmHg (85-104); ABG TCO2 21 mEq/L (20-26); Blood Gas Modality VC; Blood Gas PEEP 5 cm H2O; Blood Gas Respiration Rate 12; Blood Gas VT 500 cc
[2018-06-02] MEDS ORDERED: Naloxone 0.4 MG/ML INJ IVP PRN (16:55)
--- NOTE | 2018-06-02 17:01 | Anesthesia Evaluation Post Op ---
Date of Encounter: 06/02/18 Time of Encounter: 16:59 - Vital Signs Vital Signs: Vital Signs/O2 Sat, Most Current Temp Pulse Resp BP Pulse Ox 98.2 F 122 12 119/86 100 06/02/18 08:26 06/02/18 13:52 06/02/18 16:35 06/02/18 16:35 06/02/18 16:35 - Lungs Lungs: Clear Ascult./Percussion - Airway Airway: Intubated - Cardiovascular Regular Rate - Mental Status Mental Status: Sedated - Nausea Vomiting Nausea Vomiting: Not Present - Hydration Hydration: NPO, Machado catheter Notes: 06/02/18 16:59 Pt is s/p exlap, his abdomen remains open and he will have a re-exploration with Dr Maria tomorrow. Pt was kept sedated and intubated and transported to the ICU, further care per ICU team - Discharge PostOp Status: Transfer Patient to floor
[2018-06-02] MEDS: FentaNYL (PF) 1,000 MCG in 0.9 % Sodium Chloride 80 ML IVC SCH ×2 (17:05→21:18)
[2018-06-02] MEDS ORDERED: *HR* Labetalol 20 MG/4 ML SYRINGE IVP PRN (17:10)
--- NOTE | 2018-06-02 17:10 | Operative Note ---
Date of procedure: 06/02/18 Pre-op diagnosis: Free intraabdominal air Post-op diagnosis: same (free air, ruptured abscess) Procedure: Exploratory laparotomy, drainage intraabdominal abscess, application abthera Complications: none immediate Anesthesia: MADIA Surgeon: Carlyn Maria Was there an public relations assistant present: Yes Foxer: Mehnaz Nichols Estimated blood loss (cc): 40 Specimen: aerobic and anaerobic cultures Condition: stable Disposition: PACU Procedure in Detail: Patient was brought into the operating suite and placed supine on the operating table. Sign in was performed and everyone was in agreement. Anesthesia was induced and patient was endotracheally intubated by anesthesia without incident. A Banda catheter was placed by the circulating nurse. The abdomen was prepped and draped in the usual sterile fashion. Timeout was performed again everyone was in agreement. Previous midline scar was excised. We entered the abdomen with the Bovie. Immediately upon entering the abdomen focal collection of pus was found. There was no succus, bile, or bile staining within the abdominal cavity. The distal stomach and proximal duodenum was densely adherent to the anterior abdominal wall which was taken down with gentle blunt dissection and sharp Metzenbaums. Omentum was densely adherent to the small bowel and distal stomach. The abscess cavity seen on previous CT scans /CT scan from today was open and draining pus. The opening into the abscess cavity was widened with gentle blunt dissection and the cavity suctioned free of pus, no bile or succus was seen. Omentum was taken down off the middle of the transverse colon entering the lesser sac focally, although inflammation was present no obvious fluid, bile staining or pus was seen. The abdomen was irrigated with several liters of sterile saline. Further evaluation showed no bile staining or drainage of succus up in the left upper quadrant or around the stomach. Anesthesia attempted to place an ngt and an og tube but was unable to get it to pass into the stomach. A 19F saida drain was placed through the left lateral abdominal wall, trimmed and the end placed within the abscess cavity. A 19F saida drain was placed through the right lateral abdominal wall and along the abscess cavity, up along proximal lesser curvature. Both drains were secured with 2-0 silk. An abthera temporary abdominal closure device was placed in the abdomen. All lap and instrument counts were correct at the end of the case. Patient was stable throughout procedure. He was kept sedated, intubated, with banda and ogt in place and taken to icu in critical condition. plan second look exlap in next 24 to 48 hours
--- NOTE | 2018-06-02 17:10 | Pulmonology Consult Note ---
<Kota Brown W - Last Filed: 06/02/18 17:12> Date of Encounter: 06/02/18 Medications and Allergies Aspirin 81 mg PO DAILY 10/14/16 [History] Metformin HCl [Glucophage] 1,000 mg PO BID 10/14/16 [History] Triamterene/HCTZ 37.5/25mg [Dyazide] 1 tab PO DAILY 10/15/16 [History] Losartan Potassium [Cozaar] 100 mg PO DAILY 04/04/18 [History] hydrALAZINE [HydrALAZINE] 25 mg PO BID 04/04/18 [History] Metoprolol [Lopressor] 75 mg PO BID 30 Days #60 tablet 04/24/18 [Rx] Omeprazole [PriLOSEC] 20 mg PO BIDAC 30 Days #60 capsule.dr 04/24/18 [Rx] Amoxicillin/Clavulanate [Augmentin] 875 mg PO BIDWM 13 Days #26 tablet 04/25/18 [Rx] Fluconazole [Diflucan] 200 mg PO DAILY 13 Days #13 tab 05/01/18 [Rx] Linezolid [Zyvox] 600 mg PO BID 13 Days #26 tablet 05/01/18 [Rx] Metoclopramide [Reglan] 5 mg PO Q6HR #28 ud.liq 05/01/18 [Rx] Ondansetron ODT [Zofran ODT] 8 mg SL Q8HR #30 tab.rapdis 05/01/18 [Rx] 3 Allergy/AdvReac Type Severity Reaction Status Date / Time ciprofloxacin [From Cipro] Allergy Swelling Verified 06/02/18 13:16 of Lip/Tongue/Throat azithromycin AdvReac Vomiting Verified 06/02/18 13:16 codeine AdvReac Vomiting Verified 06/02/18 13:16 All Systems: The remainder of the systems were reviewed and are negative Physical Examination Vital Signs: Vital Signs, Last 4 Hours Pulse Resp BP Pulse Ox 06/02/18 17:05 18 129/94 99 06/02/18 16:35 12 119/86 100 06/02/18 13:52 122 133/89 96 Ventilator Settings Ventilator Settings: Ventilator Settings, Last 8 Hours Ventilator Tidal Volume 500 Setting Ventilator Tidal Volume 500 Setting Ventilator Tidal Volume 500 Setting Ventilator Respiratory Rate 18 Setting Ventilator Respiratory Rate 12 Setting Ventilator Respiratory Rate 12 Setting Actual Respiratory Rate 18 Actual Respiratory Rate 12 Positive End Expiratory 5 Pressure Positive End Expiratory 5 Pressure Positive End Expiratory 5 Pressure Peak Inspiratory Airway 25 Pressure Peak Inspiratory Airway 25 Pressure Results - Laboratory Findings CBC and BMP: 06/02/18 10:06 06/02/18 08:48 ABG ABG pH 7.23 pH Units (7.32-7.45) L 06/02/18 16:46 ABG pCO2 47 mmHg (35-45) H 06/02/18 16:46 ABG pO2 72 mmHg (85-104) L 06/02/18 16:46 ABG O2 Saturation 91 % (95-98) L 06/02/18 16:46 PT/INR, D-dimer PT 12.9 Seconds (9.4-12.1) H 06/02/18 13:54 Abnormal lab findings: Abnormal lab results WBC 14.5 K/mcL (4.3-11.1) H 06/02/18 10:06 MCV 82.4 fL (83.0-100.0) L 06/02/18 10:06 MCH 27.9 pg (28.0-33.3) L 06/02/18 10:06 RDW 15.5 % (11.5-14.5) H 06/02/18 10:06 Neutrophils # 12.9 K/mcL (1.6-8.9) H 06/02/18 10:06 PT 12.9 Seconds (9.4-12.1) H 06/02/18 13:54 ABG pH 7.23 pH Units (7.32-7.45) L 06/02/18 16:46 ABG pCO2 47 mmHg (35-45) H 06/02/18 16:46 ABG pO2 72 mmHg (85-104) L 06/02/18 16:46 ABG HCO3 20 mEq/L (21-27) L 06/02/18 16:46 ABG O2 Saturation 91 % (95-98) L 06/02/18 16:46 ABG Base Excess -8 mEq/L (-2 to 3) L 06/02/18 16:46 Sodium 131 mEq/L (136-145) L 06/02/18 08:48 Chloride 97 mEq/L (98-107) L 06/02/18 08:48 Carbon Dioxide 16 mEq/L (23-29) L 06/02/18 08:48 BUN 33 mg/dL (6-20) H 06/02/18 08:48 Creatinine 1.99 mg/dL (0.70-1.30) H 06/02/18 08:48 Est GFR ( Amer) 43 (> 60) L 06/02/18 08:48 Est GFR (Non-Af Amer) 35 (> 60) L 06/02/18 08:48 Glucose 209 mg/dL (70-105) H 06/02/18 08:48 Lactic Acid 3.9 mmol/L (0.5-2.2) H 06/02/18 13:54 Urine Clarity Cloudy (Clear) A 06/02/18 09:18 Urine Protein 100 mg/dL (Neg-Trace) H 06/02/18 09:18 Urine Blood Large (Negative) H 06/02/18 09:18 Ur Leukocyte Esterase Moderate (Negative) H 06/02/18 09:18 Urine Microscopic RBC TNTC per hpf (0-3) H 06/02/18 09:18 Urine Microscopic WBC 15-30 per hpf (0-3) H 06/02/18 09:18 Ur Squamous Epith Cells Many per lpf (None-Few) H 06/02/18 09:18 Ur Culture Indicated? NO. (NO) A 06/02/18 09:18 - Clinical Findings Intake & Output: Intake & Output 06/02/18 06/02/18 06/02/18 07:59 15:59 23:59 Intake Total 2200 / 3200 Output Total 300 / 300 Balance 2200 / 3200 -300 / -300 Consult Discharge Plan - Plan Referrals: Zafar Hinton MD [Primary Care Provider] - - Attending Attestation I examined this patient and my medical decision-making was reviewed with the Resident Physician. I agree with the documented findings, disposition and treatment plan as described except to the extent set forth below. We independently had [id number] contact with the patient I spent 32min of Critical Care time with this patient. It involved decision making of high complexity to assess, manipulate, and support vital organ system failure and/or to prevent further life threatening deterioration of the patient' s condition. The time involved in the performance of separately reportable procedures was not counted toward critical care time. Patient seen and examined at bedside Labs, radiology, chart personally reviewed. SURFACING TECHNICIAN: The patient will remain deeply sedated to prevent injury to wound VAC is in place with open abdomen. Pulm: ABG shows respiratory acidosis with a primary metabolic acidosis I have increased his respiratory rate to accommodate this and plan to repeat ABG Cards: Severe sepsis with lactic acidosis without evidence of shock patient remains tachycardic which is likely combination of pain sepsis. I do not think he will benefit from additional volume resuscitation given approximately 5 L of crystalloid that his received already. Repeat lactate pending GI: GI prophylaxis given; he has evidence of an intra-abdominal abscess/viscous rupture general surgery managing the postsurgical aspects of this plan for repeat to exploration tomorrow Nutrition: Nothing by mouth for now Renal: Acute on chronic kidney injury likely secondary to sepsis and volume depletion status post resuscitation UOP Monitored, Cont to Trend sCr and monitor Electrolytes. ID: Treating for severe sepsis from intra-abdominal source he is on broad- spectrum antimicrobials including anaerobic coverage and fungal coverage he is being followed by infectious disease as an outpatient plan on consulting in the morning for further antimicrobial selection blood cultures have been obtained Heme/Onc: Mechanical DVT prophylaxis given H&H and platelets stable Endo: Glucose Monitored Integ/MSK: Skin Care per routine ICU Nursing Protocol to prevent ulcers. Lines: All lines examined without evidence of infection : Dispo: Remain in ICU for critical illness CODE: Full <StacyNathaniel T - Last Filed: 06/02/18 18:15> Date of Encounter: 06/02/18 Time of Encounter: 16:45 Assessment and Plan (1) Severe sepsis Current Visit: Yes Status: Acute Had a duodenal perforation 2/2 NSAID use in March that was repaired with evie patch. Presented today with abdominal pain, found to have pneumoperitoneum on CT. Brought to OR for exlap and did found mostly purulant discharge and abscess pocket without any evidence of perforation to repair. He had wound vac placed and brought to ICU. Gen surg plans to probably return to OR tomorrow for washout and continued exploration for source of pneumoperitoneum. He received 3L IVF in ED and 2 more L in OR. We will plan to keep him deeply sedated tonight with propofol and fentanyl to a goal laureano score of 4-5. He is on vent , metabolic acidosis with ABG pH 7.23, pco2 47, po2 72, BE -8. Will repeat ABG tonight and get CXR and KUB. He has been tachycardic that is most likely 2/2 severe sepsis complicated by pain from surg. He has received total of 5L IVF since arrival today. He is not requiring pressors at this point and will check troponin. Will continue zosyn and diflucan. He has leukocytosis at 14.5, lactic acid 3.9 now down from 5.1 in ED, and has been afebrile. Will consult ID as he has been on abx and antifungals since March. (2) Acute on chronic renal failure Current Visit: Yes Status: Acute His Cr today is 1.99 which is elevated from recent visits. This is complicated by a metabolic acidosis. He has received total 5L IVF today. Will repeat labs now and again in morning. Qualifiers: Acute renal failure type: unspecified Chronic kidney disease stage: unspecified stage Qualified Code(s): N17.9 - Acute kidney failure, unspecified ; N18.9 - Chronic kidney disease, unspecified (3) Perforated viscus Current Visit: No Status: Acute S/p exlap, washout. Gen surg following. See severe sepsis A&P (4) Lactic acidosis Current Visit: Yes Status: Acute 5.1 today in ED, 3.9 this afternoon. Will repeat lactic now. (5) Diabetes Current Visit: No Status: Chronic Hx of DM. NPO for now with SSI and acuchecks q6h. Qualifiers: Diabetes mellitus type: type 2 Diabetes mellitus tank terminal gauger insulin use: without shelter use Diabetes mellitus complication status: with hyperglycemia Qualified Code(s): E11.65 - Type 2 diabetes mellitus with hyperglycemia (6) DVT prophylaxis Current Visit: No Status: Acute Mechanical prohylaxis History of Present Illness Consult date: 06/02/18 Requesting physician: Carlyn Maria Reason for consult: other (Intubated s/p exlap for pneumoperitoneum ) Chief complaint: Abdominal pain History of present illness: He is a 52 year old man with pmh significant for HTN, DM, HLD, and duodenal perforation s/p evie patch in March 2018 2/2 chronic NSAID use. Hx comes from medical record as he is intubated and sedated. He presented to the ED today with abdominal pain. He was found to have pneumoperitoneum and taken to OR for exlap. They found purulant discharge and abscess. His abdomen was left open with wound vac in place. He was brought to the ICU intubated with probable plan to return to OR tomorrow for wash out and continued exploration. He is followed by ID for abdominal abscess and been on augmentin, diflucan most recently. 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 He has had a persistant R kidney stone (5mm in distal R ureter) with ureteral stent placed. Past Med Surg Social Fam HX - Past Medical History Medical history: diabetes, GERD, hyperlipidemia, hypertension, kidney stones Psychiatric history: no psych history - Past Surgical History Surgical History: cataract, cholecystectomy, herniorrhaphy, orthopedic, other Additional surgical history: LEFT FOOT SURGERY WITH RODS IN FOOT, BILT KNEE SURGERY, HERNIA REPAIR, EYE IMPLANTS - Social History Smoking Status: Never smoker Smokeless Tobacco Status: No Alcohol use: none Drug use: none - Family History Mother Living Status: Hx Family Cardiac Disorders: Yes (HTN) Hx Family GI Disorders: Yes (GERD) ROS unobtainable: due to endotracheal tube (Sedated) All Systems: The remainder of the systems were reviewed and are negative Physical Examination Vital Signs: Vital Signs, Last 4 Hours Pulse Resp BP Pulse Ox 06/02/18 16:35 12 119/86 100 06/02/18 13:52 122 133/89 96 General appearance: no acute distress, other (intubated and sedated ) Eyes: nonicteric ENT: oropharynx moist Auscultation: bilateral: clear Cardiovascular: other (tachycardic ) Gastrointestinal: soft, non-distended, other (~ 6 inch incision open, wound vac in place, [address] ) Extremities: no cyanosis, no edema other (intubated and sedated ) Ventilator Settings Ventilator Settings: Ventilator Settings, Last 8 Hours Ventilator Tidal Volume 500 Setting Ventilator Tidal Volume 500 Setting Ventilator Respiratory Rate 12 Setting Ventilator Respiratory Rate 12 Setting Actual Respiratory Rate 12 Positive End Expiratory 5 Pressure Positive End Expiratory 5 Pressure Peak Inspiratory Airway 25 Pressure Results - Laboratory Findings CBC and BMP: 06/02/18 17:29 06/02/18 17:29 ABG ABG pH 7.23 pH Units (7.32-7.45) L 06/02/18 16:46 ABG pCO2 47 mmHg (35-45) H 06/02/18 16:46 ABG pO2 72 mmHg (85-104) L 06/02/18 16:46 ABG O2 Saturation 91 % (95-98) L 06/02/18 16:46 PT/INR, D-dimer PT 12.9 Seconds (9.4-12.1) H 06/02/18 13:54 Abnormal lab findings: Abnormal lab results WBC 14.5 K/mcL (4.3-11.1) H 06/02/18 10:06 MCV 82.4 fL (83.0-100.0) L 06/02/18 10:06 MCH 27.9 pg (28.0-33.3) L 06/02/18 10:06 RDW 15.5 % (11.5-14.5) H 06/02/18 10:06 Neutrophils # 12.9 K/mcL (1.6-8.9) H 06/02/18 10:06 PT 12.9 Seconds (9.4-12.1) H 06/02/18 13:54 ABG pH 7.23 pH Units (7.32-7.45) L 06/02/18 16:46 ABG pCO2 47 mmHg (35-45) H 06/02/18 16:46 ABG pO2 72 mmHg (85-104) L 06/02/18 16:46 ABG HCO3 20 mEq/L (21-27) L 06/02/18 16:46 ABG O2 Saturation 91 % (95-98) L 06/02/18 16:46 ABG Base Excess -8 mEq/L (-2 to 3) L 06/02/18 16:46 Sodium 131 mEq/L (136-145) L 06/02/18 08:48 Chloride 97 mEq/L (98-107) L 06/02/18 08:48 Carbon Dioxide 16 mEq/L (23-29) L 06/02/18 08:48 BUN 33 mg/dL (6-20) H 06/02/18 08:48 Creatinine 1.99 mg/dL (0.70-1.30) H 06/02/18 08:48 Est GFR ( Amer) 43 (> 60) L 06/02/18 08:48 Est GFR (Non-Af Amer) 35 (> 60) L 06/02/18 08:48 Glucose 209 mg/dL (70-105) H 06/02/18 08:48 Lactic Acid 3.9 mmol/L (0.5-2.2) H 06/02/18 13:54 Urine Clarity Cloudy (Clear) A 06/02/18 09:18 Urine Protein 100 mg/dL (Neg-Trace) H 06/02/18 09:18 Urine Blood Large (Negative) H 06/02/18 09:18 Ur Leukocyte Esterase Moderate (Negative) H 06/02/18 09:18 Urine Microscopic RBC TNTC per hpf (0-3) H 06/02/18 09:18 Urine Microscopic WBC 15-30 per hpf (0-3) H 06/02/18 09:18 Ur Squamous Epith Cells Many per lpf (None-Few) H 06/02/18 09:18 Ur Culture Indicated? NO. (NO) A 06/02/18 09:18 - Clinical Findings Intake & Output: Intake & Output 06/02/18 06/02/18 06/02/18 07:59 15:59 23:59 Intake Total 2200 / 3200 Output Total 300 / 300 Balance 2200 / 3200 -300 / -300
[2018-06-02] MEDS ORDERED: Dextrose Gel 15 GM/37.5 ML TUBE PO PRN ×2 (17:14)
[2018-06-02] MEDS ORDERED: *HR* Dextrose 50 % in Water (Syg) 50 ML SYRINGE IVP PRN (17:14)
[2018-06-02] MEDS ORDERED: D5% in Water 1,000 ML IVC PRN (17:14)
[2018-06-02 17:45] LABS: Basophils # 0.1 K/mcL (0.0-0.2); Basophils % 0.4 %; Eosinophils % 0.1 %; Hematocrit 41.8 % (37.5-50.1); Hemoglobin 13.6 g/dL (12.9-16.9); Immature Granulocytes % 2.4 % (0-4); Lymphocytes % 7.1 %; Mean Corpuscular HGB Conc 32.5 g/dL (31.6-35.5); Mean Corpuscular Hemoglobin 27.8 pg (28.0-33.3); Mean Corpuscular Volume 85.5 fL (83.0-100.0); Mean Platelet Volume 9.8 fL (9.4-12.4); Monocytes # 0.3 K/mcL (0.0-1.3); Monocytes % 2.1 %; Neutrophils # 12.3 K/mcL (1.6-8.9); Platelet Count 274 K/mcL (140-400); Red Blood Count 4.89 M/mcL (4.19-5.50); Red Cell Distribution Width 15.6 % (11.5-14.5); Segmented Neutrophils % 87.9 %
[2018-06-02 17:50] LABS: INR 1.1; Prothrombin Time 12.9 Seconds (9.4-12.1)
[2018-06-02 18:10] LABS: Albumin 3.3 g/dL (3.5-5.7); Albumin/Globulin Ratio 1.2 (1.1-2.2); Bilirubin,Total 0.6 mg/dL (0.3-1.0); Calcium 8.2 mg/dL (8.6-10.3); Globulin 2.8 g/dL (2.4-3.5); Potassium 4.9 mEq/L (3.5-5.1); Total Protein 6.1 g/dL (6.4-8.9)
[2018-06-02] MEDS: Insulin LISPRO 300 UNITS/3 ML VIAL SQ SCH (18:20)
[2018-06-02] MEDS: Pantoprazole 40 MG VIAL IVP SCH (18:20)
--- NOTE | 2018-06-02 19:41 | Event Note ---
Date of Encounter: 06/02/18 Time of Encounter: 19:39 Attempted to see the patient as the case was signed out to me as a case of peritonitis due to a perforated viscus as I arrived to my shift. Was informed by the STEEL FABRICATOR that the case is under the admitting surgeon and pulmonary critical care has already received and evaluated the patient with all orders and management to be run through them. IM will remain on standby for whatever needs are necessary overnight.
[2018-06-02] MEDS: Piperacillin/Tazobactam 3.375 GM in 0.9 % Sodium Chloride Mini Bag 100 ML IVPB SCH (23:05)
[2018-06-03] MEDS: Insulin LISPRO 300 UNITS/3 ML VIAL SQ SCH ×5 (00:21→23:43)
[2018-06-03] MEDS: FentaNYL (PF) 1,000 MCG in 0.9 % Sodium Chloride 80 ML IVC SCH ×5 (02:18→23:40)
[2018-06-03 04:57] LABS: Hematocrit 31.2 % (37.5-50.1); Lymphocytes # 0.5 K/mcL (0.6-4.6); Lymphocytes % 5.6 %; Mean Corpuscular HGB Conc 33.7 g/dL (31.6-35.5); Mean Corpuscular Hemoglobin 28.2 pg (28.0-33.3); Mean Corpuscular Volume 83.9 fL (83.0-100.0); Mean Platelet Volume 10.1 fL (9.4-12.4); Monocytes # 0.2 K/mcL (0.0-1.3); Monocytes % 2.7 %; Neutrophils # 7.7 K/mcL (1.6-8.9); Platelet Count 171 K/mcL (140-400); Red Blood Count 3.72 M/mcL (4.19-5.50); Red Cell Distribution Width 15.4 % (11.5-14.5); Segmented Neutrophils % 89.7 %
[2018-06-03 04:58] LABS: Hemoglobin 10.5 g/dL (12.9-16.9)
[2018-06-03 05:03] LABS: ABG Base Excess 5 mEq/L (-2 to 3); ABG HCO3 28 mEq/L (21-27); ABG Oxygen Saturation 98 % (95-98); ABG PCO2 37 mmHg (35-45); ABG PH 7.49 pH Units (7.32-7.45); ABG PO2 88 mmHg (85-104); ABG TCO2 29 mEq/L (20-26); Blood Gas Modality ASSIST CONTROL; Blood Gas PEEP 5 cm H2O; Blood Gas Respiration Rate 18; Blood Gas VT 500 cc
[2018-06-03 05:24] LABS: Calcium 8.2 mg/dL (8.6-10.3); Magnesium 1.4 mg/dL (1.6-2.6); Phosphorous 3.5 mg/dL (2.7-4.5); Potassium 4.9 mEq/L (3.5-5.1)
[2018-06-03 07:40] LABS: Acinetobacter baumannii by PCR Not Detected (Not Detect); Candida albicans by PCR Not Detected (Not Detect); Candida glabrata by PCR Not Detected (Not Detect); Candida krusei by PCR Not Detected (Not Detect); Candida parapsilosis by PCR Not Detected (Not Detect); Candida tropicalis by PCR Not Detected (Not Detect); Enterobacter cloacae Cmplx PCR Not Detected (Not Detect); Enterobacteriaceae by PCR DETECTED (Not Detect); Enterococcus by PCR Not Detected (Not Detect); Escherichia coli by PCR DETECTED (Not Detect); Klebsiella oxytoca by PCR Not Detected (Not Detect); Klebsiella pneumoniae by PCR Not Detected (Not Detect); Proteus by PCR Not Detected (Not Detect); Pseudomonas aeruginosa by PCR Not Detected (Not Detect); Serratia marcescens by PCR Not Detected (Not Detect); Staphylococcus aureus by PCR Not Detected (Not Detect); Staphylococcus by PCR Not Detected (Not Detect); Streptococcus agalactiae(B)PCR Not Detected (Not Detect); Streptococcus by PCR Not Detected (Not Detect); Streptococcus pneumoniae PCR Not Detected (Not Detect); Streptococcus pyogenes (A) PCR Not Detected (Not Detect); blaKPC Carbapenem-Resist Gene Not Detected (Not Detect)
--- NOTE | 2018-06-03 07:48 | Pulmonology Progress Note ---
<Kota Brown W - Last Filed: 06/03/18 09:53> Date of Encounter: 06/03/18 Objective PUL Vital signs: Last Vital Signs Temp 98.4 F 06/03/18 08:00 Pulse 64 06/03/18 08:00 Resp 14 06/03/18 08:02 BP 101/63 06/03/18 08:00 Pulse Ox 100 06/03/18 08:02 Ventilator Settings Ventilator Settings: Ventilator Settings, Last 8 Hours Ventilator Tidal Volume 500 Setting Ventilator Tidal Volume 500 Setting Ventilator Tidal Volume 500 Setting Ventilator Tidal Volume 500 Setting Ventilator Tidal Volume 500 Setting Ventilator Tidal Volume 500 Setting Ventilator Tidal Volume 500 Setting Ventilator Tidal Volume 500 Setting Ventilator Tidal Volume 500 Setting Ventilator Tidal Volume 500 Setting Ventilator Tidal Volume 500 Setting Ventilator Tidal Volume 500 Setting Ventilator Tidal Volume 500 Setting Ventilator Tidal Volume 500 Setting Ventilator Respiratory Rate 14 Setting Ventilator Respiratory Rate 14 Setting Ventilator Respiratory Rate 14 Setting Ventilator Respiratory Rate 18 Setting Ventilator Respiratory Rate 18 Setting Ventilator Respiratory Rate 18 Setting Ventilator Respiratory Rate 18 Setting Ventilator Respiratory Rate 18 Setting Ventilator Respiratory Rate 18 Setting Ventilator Respiratory Rate 18 Setting Ventilator Respiratory Rate 18 Setting Ventilator Respiratory Rate 18 Setting Ventilator Respiratory Rate 18 Setting Ventilator Respiratory Rate 18 Setting Actual Respiratory Rate 14 Actual Respiratory Rate 14 Actual Respiratory Rate 14 Actual Respiratory Rate 18 Actual Respiratory Rate 18 Actual Respiratory Rate 18 Actual Respiratory Rate 18 Actual Respiratory Rate 18 Actual Respiratory Rate 18 Actual Respiratory Rate 18 Actual Respiratory Rate 18 Actual Respiratory Rate 18 Actual Respiratory Rate 18 Positive End Expiratory 5 Pressure Positive End Expiratory 5 Pressure Positive End Expiratory 5 Pressure Positive End Expiratory 5 Pressure Positive End Expiratory 5 Pressure Positive End Expiratory 5 Pressure Positive End Expiratory 5 Pressure Positive End Expiratory 5 Pressure Positive End Expiratory 5 Pressure Positive End Expiratory 5 Pressure Positive End Expiratory 5 Pressure Positive End Expiratory 5 Pressure Positive End Expiratory 5 Pressure Positive End Expiratory 5 Pressure Peak Inspiratory Airway 24 Pressure Peak Inspiratory Airway 24 Pressure Peak Inspiratory Airway 24 Pressure Peak Inspiratory Airway 22 Pressure Peak Inspiratory Airway 22 Pressure Peak Inspiratory Airway 21 Pressure Peak Inspiratory Airway 22 Pressure Peak Inspiratory Airway 22 Pressure Peak Inspiratory Airway 22 Pressure Peak Inspiratory Airway 22 Pressure Peak Inspiratory Airway 22 Pressure Peak Inspiratory Airway 21 Pressure Peak Inspiratory Airway 21 Pressure Results - Laboratory Findings CBC and BMP: 06/03/18 04:46 06/03/18 04:46 ABG ABG pH 7.49 pH Units (7.32-7.45) H 06/03/18 04:59 ABG pCO2 37 mmHg (35-45) 06/03/18 04:59 ABG pO2 88 mmHg (85-104) 06/03/18 04:59 ABG O2 Saturation 98 % (95-98) 06/03/18 04:59 PT/INR, D-dimer PT 12.9 Seconds (9.4-12.1) H 06/02/18 17:29 Abnormal lab findings: Abnormal lab results RBC 3.72 M/mcL (4.19-5.50) L 06/03/18 04:46 Hgb 10.5 g/dL (12.9-16.9) L D 06/03/18 04:46 Hct 31.2 % (37.5-50.1) L 06/03/18 04:46 RDW 15.4 % (11.5-14.5) H 06/03/18 04:46 Lymphocytes # 0.5 K/mcL (0.6-4.6) L 06/03/18 04:46 PT 12.9 Seconds (9.4-12.1) H 06/02/18 17:29 ABG pH 7.49 pH Units (7.32-7.45) H 06/03/18 04:59 ABG HCO3 28 mEq/L (21-27) H 06/03/18 04:59 ABG Total CO2 29 mEq/L (20-26) H 06/03/18 04:59 ABG Base Excess 5 mEq/L (-2 to 3) H 06/03/18 04:59 Sodium 133 mEq/L (136-145) L 06/03/18 04:46 Carbon Dioxide 19 mEq/L (23-29) L 06/03/18 04:46 BUN 23 mg/dL (6-20) H 06/03/18 04:46 Creatinine 1.53 mg/dL (0.70-1.30) H 06/03/18 04:46 Est GFR ( Amer) 58 (> 60) L 06/03/18 04:46 Est GFR (Non-Af Amer) 48 (> 60) L 06/03/18 04:46 Glucose 157 mg/dL (70-105) H 06/03/18 04:46 POC Glucose 176 mg/dL (70-99) H 06/03/18 00:15 Lactic Acid 2.3 mmol/L (0.5-2.2) H 06/03/18 07:21 Calcium 8.2 mg/dL (8.6-10.3) L 06/03/18 04:46 Magnesium 1.4 mg/dL (1.6-2.6) L 06/03/18 04:46 Creatine Kinase 11 Units/L (30-223) L 06/02/18 17:29 Serum Total Protein 6.1 g/dL (6.4-8.9) L 06/02/18 17:29 Albumin 3.3 g/dL (3.5-5.7) L 06/02/18 17:29 Urine Clarity Cloudy (Clear) A 06/02/18 09:18 Urine Protein 100 mg/dL (Neg-Trace) H 06/02/18 09:18 Urine Blood Large (Negative) H 06/02/18 09:18 Ur Leukocyte Esterase Moderate (Negative) H 06/02/18 09:18 Urine Microscopic RBC TNTC per hpf (0-3) H 06/02/18 09:18 Urine Microscopic WBC 15-30 per hpf (0-3) H 06/02/18 09:18 Ur Squamous Epith Cells Many per lpf (None-Few) H 06/02/18 09:18 Ur Culture Indicated? NO. (NO) A 06/02/18 09:18 Enterobacteriac sp PCR DETECTED (Not Detect) A 06/02/18 09:18 E. coli (PCR) DETECTED (Not Detect) A 06/02/18 09:18 - Microbiology Findings Microbiology Findings: Microbiology, Last 48 Hours 06/02/18 20:12 Body Fluid Culture - Preliminary Peritoneal Fluid - Clinical Findings Intake & Output: Intake & Output 06/02/18 06/03/18 06/03/18 23:59 07:59 15:59 Intake Total 550 / 550 750 / 750 Output Total 1250 / 1250 1815 / 1815 Balance -700 / -700 -1065 / -1065 Weight 102.6 kg Consult Discharge Plan - Plan Referrals: Zafar Hinton MD [Primary Care Provider] - - Attending Attestation I examined this patient and my medical decision-making was reviewed with the Resident Physician. I agree with the documented findings, disposition and treatment plan as described except to the extent set forth below. We independently had [id number] contact with the patient Patient seen and examined at bedside Labs, radiology, chart personally reviewed. Management was reviewed during multidisciplinary critical care rounds. 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 Acceptable oxygenation Cards: Tachycardia is resolved blood pressure stable GI: GI prophylaxis given; status post exploratory laparoscopy yesterday for intra-abdominal abscess likely will return to OR in the next 24-48 hours for revision this may be related to an infected Khanh patch versus ruptured viscus ; general surgery is the primary service was possible for the management this problem Nutrition: Nothing by mouth for now Renal: Plan to match intake and output today UOP Monitored, Cont to Trend sCr and monitor Electrolytes. ID: Severe sepsis white blood cell count trending down Continue to treat for intra-abdominal infection patient has evidence of gram-negative bacteremia Heme/Onc: DVT prophylaxis given Endo: Glucose Monitored Integ/MSK: Skin Care per routine ICU Nursing Protocol to prevent ulcers. Lines: All lines examined without evidence of infection : Dispo: Remain in ICU today CODE: Full code <Nathanile Kumar - Last Filed: 06/03/18 11:13> Date of Encounter: 06/03/18 Time of Encounter: 07:30 Assessment and Plan (1) Severe sepsis Current Visit: Yes Status: Acute Remains intubated and sedated with propofol and fentanyl. ABG improved but slightly alkalotic today. Ph 7.49, paco2 37, po2 88 on 30% fio2. Will decrease RR from 18 to 14 to decrease ventilation. He is negative on I/O's and will balance fluid status with bolus as needed to match output. His pressures have been stable and not requiring pressors. Tachycardia improved with pain control. He is afebrile and leukocytosis down to 8.6 from 14. Lactic acid down from yesterday high of 5.1 to 2.3 today. Prelim blood culture pos for E coli. Will continue zosyn and diflucan for now. ID has been consulted for today. Gen surg plan to return to OR for continued exploration. (2) Acute on chronic renal failure Current Visit: Yes Status: Acute Cr down from 1.99 to 1.53 today. Received 5L IVF yesterday. He is neg on fluids today and will match output with fluid bolus. Will monitor and replace electrolytes as needed. Qualifiers: Acute renal failure type: unspecified Chronic kidney disease stage: unspecified stage Qualified Code(s): N17.9 - Acute kidney failure, unspecified ; N18.9 - Chronic kidney disease, unspecified (3) Perforated viscus Current Visit: No Status: Acute S/p exlap, washout. Gen surg following and plan to take back to OR today for continued exploration. (4) Lactic acidosis Current Visit: Yes Status: Acute Improving from high of 5.1 down to 2.3 today. (5) Diabetes Current Visit: No Status: Chronic Hx of DM. NPO with SSI and acuchecks q6h. 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 Intubated on vent. Abdominal incision open and on wound vac. Objective PUL Vital signs: Last Vital Signs Temp 97.9 F 06/03/18 04:00 Pulse 64 06/03/18 06:00 Resp 18 06/03/18 06:00 BP 102/70 06/03/18 06:00 Pulse Ox 100 06/03/18 06:00 General appearance: no acute distress, other (Intubated and sedated ) Eyes: nonicteric ENT: oropharynx moist Auscultation: bilateral: clear Cardiovascular: regular rate and rhythm Gastrointestinal: soft Extremities: no cyanosis, no edema other (Sedated ) Ventilator Settings Ventilator Settings: Ventilator Settings, Last 8 Hours Ventilator Tidal Volume 500 Setting Ventilator Tidal Volume 500 Setting Ventilator Tidal Volume 500 Setting Ventilator Tidal Volume 500 Setting Ventilator Tidal Volume 500 Setting Ventilator Tidal Volume 500 Setting Ventilator Tidal Volume 500 Setting Ventilator Tidal Volume 500 Setting Ventilator Tidal Volume 500 Setting Ventilator Tidal Volume 500 Setting Ventilator Tidal Volume 500 Setting Ventilator Tidal Volume 500 Setting Ventilator Respiratory Rate 18 Setting Ventilator Respiratory Rate 18 Setting Ventilator Respiratory Rate 18 Setting Ventilator Respiratory Rate 18 Setting Ventilator Respiratory Rate 18 Setting Ventilator Respiratory Rate 18 Setting Ventilator Respiratory Rate 18 Setting Ventilator Respiratory Rate 18 Setting Ventilator Respiratory Rate 18 Setting Ventilator Respiratory Rate 18 Setting Ventilator Respiratory Rate 18 Setting Ventilator Respiratory Rate 18 Setting Actual Respiratory Rate 18 Actual Respiratory Rate 18 Actual Respiratory Rate 18 Actual Respiratory Rate 18 Actual Respiratory Rate 18 Actual Respiratory Rate 18 Actual Respiratory Rate 18 Actual Respiratory Rate 18 Actual Respiratory Rate 18 Actual Respiratory Rate 18 Actual Respiratory Rate 18 Positive End Expiratory 5 Pressure Positive End Expiratory 5 Pressure Positive End Expiratory 5 Pressure Positive End Expiratory 5 Pressure Positive End Expiratory 5 Pressure Positive End Expiratory 5 Pressure Positive End Expiratory 5 Pressure Positive End Expiratory 5 Pressure Positive End Expiratory 5 Pressure Positive End Expiratory 5 Pressure Positive End Expiratory 5 Pressure Positive End Expiratory 5 Pressure Peak Inspiratory Airway 22 Pressure Peak Inspiratory Airway 22 Pressure Peak Inspiratory Airway 21 Pressure Peak Inspiratory Airway 22 Pressure Peak Inspiratory Airway 22 Pressure Peak Inspiratory Airway 22 Pressure Peak Inspiratory Airway 22 Pressure Peak Inspiratory Airway 22 Pressure Peak Inspiratory Airway 21 Pressure Peak Inspiratory Airway 21 Pressure Peak Inspiratory Airway 21 Pressure Results - Laboratory Findings CBC and BMP: 06/03/18 04:46 06/03/18 04:46 ABG ABG pH 7.49 pH Units (7.32-7.45) H 06/03/18 04:59 ABG pCO2 37 mmHg (35-45) 06/03/18 04:59 ABG pO2 88 mmHg (85-104) 06/03/18 04:59 ABG O2 Saturation 98 % (95-98) 06/03/18 04:59 PT/INR, D-dimer PT 12.9 Seconds (9.4-12.1) H 06/02/18 17:29 Abnormal lab findings: Abnormal lab results RBC 3.72 M/mcL (4.19-5.50) L 06/03/18 04:46 Hgb 10.5 g/dL (12.9-16.9) L D 06/03/18 04:46 Hct 31.2 % (37.5-50.1) L 06/03/18 04:46 RDW 15.4 % (11.5-14.5) H 06/03/18 04:46 Lymphocytes # 0.5 K/mcL (0.6-4.6) L 06/03/18 04:46 PT 12.9 Seconds (9.4-12.1) H 06/02/18 17:29 ABG pH 7.49 pH Units (7.32-7.45) H 06/03/18 04:59 ABG HCO3 28 mEq/L (21-27) H 06/03/18 04:59 ABG Total CO2 29 mEq/L (20-26) H 06/03/18 04:59 ABG Base Excess 5 mEq/L (-2 to 3) H 06/03/18 04:59 Sodium 133 mEq/L (136-145) L 06/03/18 04:46 Carbon Dioxide 19 mEq/L (23-29) L 06/03/18 04:46 BUN 23 mg/dL (6-20) H 06/03/18 04:46 Creatinine 1.53 mg/dL (0.70-1.30) H 06/03/18 04:46 Est GFR ( Amer) 58 (> 60) L 06/03/18 04:46 Est GFR (Non-Af Amer) 48 (> 60) L 06/03/18 04:46 Glucose 157 mg/dL (70-105) H 06/03/18 04:46 POC Glucose 176 mg/dL (70-99) H 06/03/18 00:15 Lactic Acid 3.6 mmol/L (0.5-2.2) H 06/02/18 17:29 Calcium 8.2 mg/dL (8.6-10.3) L 06/03/18 04:46 Magnesium 1.4 mg/dL (1.6-2.6) L 06/03/18 04:46 Creatine Kinase 11 Units/L (30-223) L 06/02/18 17:29 Serum Total Protein 6.1 g/dL (6.4-8.9) L 06/02/18 17:29 Albumin 3.3 g/dL (3.5-5.7) L 06/02/18 17:29 Urine Clarity Cloudy (Clear) A 06/02/18 09:18 Urine Protein 100 mg/dL (Neg-Trace) H 06/02/18 09:18 Urine Blood Large (Negative) H 06/02/18 09:18 Ur Leukocyte Esterase Moderate (Negative) H 06/02/18 09:18 Urine Microscopic RBC TNTC per hpf (0-3) H 06/02/18 09:18 Urine Microscopic WBC 15-30 per hpf (0-3) H 06/02/18 09:18 Ur Squamous Epith Cells Many per lpf (None-Few) H 06/02/18 09:18 Ur Culture Indicated? NO. (NO) A 06/02/18 09:18 Enterobacteriac sp PCR DETECTED (Not Detect) A 06/02/18 09:18 E. coli (PCR) DETECTED (Not Detect) A 06/02/18 09:18 - Microbiology Findings Microbiology Findings: Microbiology, Last 48 Hours 06/02/18 20:12 Body Fluid Culture - Preliminary Peritoneal Fluid - Clinical Findings Intake & Output: Intake & Output 06/02/18 06/02/18 06/03/18 15:59 23:59 07:59 Intake Total 2200 / 3200 550 / 550 550 / 550 Output Total 1250 / 1250 1255 / 1255 Balance 2200 / 3200 -700 / -700 -705 / -705 Weight 102.6 kg - VTE Documentation of Mechanical Device: Intermittent pneumatic compression device
[2018-06-03] MEDS ORDERED: Potassium Phosphate 44 MEQ in 0.9 % Sodium Chloride 250 ML IVPB PRN (08:01)
[2018-06-03] MEDS: Fluconazole 200 MG/100 ML 200 MG/100 ML BAG IVPB SCH (08:05)
[2018-06-03] MEDS: Pantoprazole 40 MG VIAL IVP SCH (08:05)
[2018-06-03] MEDS: Piperacillin/Tazobactam 3.375 GM in 0.9 % Sodium Chloride Mini Bag 100 ML IVPB SCH ×3 (08:05→23:44)
--- NOTE | 2018-06-03 08:09 | General Surgery Progress Note ---
<JoseKen K - Last Filed: 06/03/18 09:24> Date of Encounter: 06/03/18 Time of Encounter: 07:30 - Assessment and Plan (1) Pneumoperitoneum Current Visit: Yes Status: Acute Pt is s/p exploratory laparotomy which revealed purulent collections in the abdomen, diffuse adhesions of the distal stomach, duodenum, and omentum as well as an open, draining abscess cavity but no other visualized perforation. Saline irrigation and suction of the viscera was performed along with blunt dissection of adhesions and placement of intraabdominal drains. Preliminary blood culture positive by PCR for E Coli. Pt is afebrile with BP and HR stable. Urine output steady overnight at ~100mL/hour. 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 Two lateral abdominal drains were placed as well as a wound vac over the central abdomen. CT was positive for pneumoperitoneum and he has history of duodenal perforation (two months ago) that was repaired with evie patch. The patient is afebrile being maintained with intubation and sedation with stable BP and HR. Objective Vital Signs - Last 8 Hours Temp Pulse Resp BP Pulse Ox 06/03/18 08:02 14 100 06/03/18 06:00 64 18 102/70 100 06/03/18 05:09 18 98/62 100 06/03/18 05:00 65 18 97/68 100 06/03/18 04:00 97.9 F 67 18 98/62 100 06/03/18 03:50 18 110/71 100 06/03/18 03:00 71 18 90/62 100 06/03/18 02:00 71 18 104/70 100 06/03/18 01:08 18 92/63 100 06/03/18 01:00 76 18 92/63 100 Intake and Output 06/02/18 06/03/18 06/03/18 23:59 07:59 15:59 Intake Total 550 / 550 750 / 750 Output Total 1250 / 1250 1255 / 1255 Balance -700 / -700 -505 / -505 Intake: IV Fluids 550 / 550 750 / 750 ALBURX 5% 12.5 gm In 250 ml @ 250 / 250 250 / 250 60 mls/hr IVC .[id number] [place] Rx#: [id number] FentaNYL (PF) 1,000 MCG In 0.9 100 / 100 200 / 200 % Sodium Chloride 80 ML @ 50 MCG/HR 5 mls/hr IVC CONT [place] Rx #:[id number] Diprivan 1,000 mg In 100 ml @ 200 / 200 200 / 200 10 MCG/KG/MIN 6.26 mls/hr IVC . [id number] [place] Rx#:[id number] Zosyn 3.375 GM In 0.9 % Sodium 100 / 100 Chloride (Mini-Bag +) 100 ML @ 25 mls/hr IVPB Q8HR [place] Rx#: [id number] Output: Estimated Blood Loss 600 / 600 Catheter 400 / 400 1000 / 1000 Wound Drainage 250 / 250 255 / 255 Abdomen 150 / 150 150 / 150 Left Abdomen 40 / 40 70 / 70 Right Abdomen 60 / 60 35 / 35 Other: Weight 102.6 kg Blood Glucose* 146 177 Patient Weight 06/03/18 23:59 Weight 102.6 kg - General physical appearance moderate distress, other (Pt is sedated, appeared conscious during bedside exam. ) - Eyes PERRL - Neck Neck exam: trachea midline - Respiratory other (Intubated, on ventilator.) - Cardiovascular Cardiovascular exam: Present: RRR - Abdomen Abdomen: Present: distended - Incision Incision: Present: open (~6in Surgical incision with abthera temporary abdominal closure device present.) - Psychiatric other (Heavily sedated but aware during bedside visit.) - Labs 06/03/18 04:46 06/03/18 04:46 Diabetes panel 06/02/18 06/03/18 Range/Units 17:29 04:46 Sodium 133 L 133 L (136-145) mEq/L Potassium 4.9 4.9 (3.5-5.1) mEq/L Chloride 102 103 (98-107) mEq/L Carbon Dioxide 16 L 19 L (23-29) mEq/L BUN 28 H 23 H (6-20) mg/dL Creatinine 1.65 H 1.53 H (0.70-1.30) mg/dL Glucose 211 H 157 H (70-105) mg/dL Calcium 8.2 L 8.2 L (8.6-10.3) mg/dL AST 28 (13-39) Units/L ALT 23 (7-52) Units/L Alkaline Phosphatase 95 (34-104) Units/L Albumin 3.3 L (3.5-5.7) g/dL Calcium panel 06/02/18 06/03/18 Range/Units 17:29 04:46 Calcium 8.2 L 8.2 L (8.6-10.3) mg/dL Phosphorus 3.5 (2.7-4.5) mg/dL Albumin 3.3 L (3.5-5.7) g/dL Pituitary panel 06/02/18 06/03/18 Range/Units 17:29 04:46 Sodium 133 L 133 L (136-145) mEq/L Potassium 4.9 4.9 (3.5-5.1) mEq/L Chloride 102 103 (98-107) mEq/L Carbon Dioxide 16 L 19 L (23-29) mEq/L BUN 28 H 23 H (6-20) mg/dL Creatinine 1.65 H 1.53 H (0.70-1.30) mg/dL Glucose 211 H 157 H (70-105) mg/dL Calcium 8.2 L 8.2 L (8.6-10.3) mg/dL Adrenal panel 06/02/18 06/03/18 Range/Units 17:29 04:46 Sodium 133 L 133 L (136-145) mEq/L Potassium 4.9 4.9 (3.5-5.1) mEq/L Chloride 102 103 (98-107) mEq/L Carbon Dioxide 16 L 19 L (23-29) mEq/L BUN 28 H 23 H (6-20) mg/dL Creatinine 1.65 H 1.53 H (0.70-1.30) mg/dL Glucose 211 H 157 H (70-105) mg/dL Calcium 8.2 L 8.2 L (8.6-10.3) mg/dL Total Bilirubin 0.6 (0.3-1.0) mg/dL AST 28 (13-39) Units/L ALT 23 (7-52) Units/L Alkaline Phosphatase 95 (34-104) Units/L Albumin 3.3 L (3.5-5.7) g/dL - VTE Documentation of Mechanical Device: Intermittent pneumatic compression device Consult Discharge Plan - Plan Referrals: Zafar Hinton MD [Primary Care Provider] - <Benedict Serrano - Last Filed: 06/04/18 06:22> Date of Encounter: 06/04/18 Objective Vital Signs - Last 8 Hours Temp Pulse Resp BP Pulse Ox 06/04/18 06:00 58 14 92/63 99 06/04/18 05:42 14 92/63 99 06/04/18 05:00 57 15 93/66 99 06/04/18 04:32 59 06/04/18 04:00 54 14 86/59 99 06/04/18 03:44 97.9 F 06/04/18 03:32 14 86/62 99 06/04/18 03:00 54 14 84/59 99 06/04/18 02:00 61 14 85/60 98 06/04/18 01:06 14 86/62 99 06/04/18 01:00 60 14 86/62 99 06/04/18 00:19 97.5 F L 06/04/18 00:00 58 14 93/64 97 06/03/18 23:41 14 93/62 96 06/03/18 23:30 64 06/03/18 23:00 91 16 133/91 94 Intake and Output 06/03/18 06/03/18 06/04/18 15:59 23:59 07:59 Intake Total 604 / 604 500 / 500 400 / 400 Output Total 655 / 655 1325 / 1325 865 / 865 Balance -51 / -51 -825 / -825 -465 / -465 Intake: IV Fluids 604 / 604 500 / 500 400 / 400 FentaNYL (PF) 1,000 MCG In 0.9 100 / 100 200 / 200 100 / 100 % Sodium Chloride 80 ML @ 50 MCG/HR 5 mls/hr IVC CONT [place] Rx #:[id number] Diprivan 1,000 mg In 100 ml @ 200 / 200 200 / 200 200 / 200 10 MCG/KG/MIN 6.26 mls/hr IVC . [id number] Rx#:[id number] Diflucan Premix 200 MG/100 ML 100 / 100 200 mg In 100 ml @ 100 mls/hr IVPB DAILY [facility] Rx#:[id number] Magnesium Sulfate 2 GM In 0.9 % 104 / 104 Sodium Chloride 100 ML @ 52 mls/hr IVPB Q6H [facility] Rx#: [id number] Zosyn 3.375 GM In 0.9 % Sodium 100 / 100 100 / 100 100 / 100 Chloride (Mini-Bag +) 100 ML @ 25 mls/hr IVPB Q8HR [facility] Rx#: [id number] Output: Catheter 550 / 550 1200 / 1200 750 / 750 Gastric Drainage 0 / 0 Wound Drainage 105 / 105 125 / 125 115 / 115 Abdomen 75 / 75 75 / 75 50 / 50 Left Abdomen 20 / 20 35 / 35 50 / 50 Right Abdomen 10 15 / 15 15 15 Other: Weight 102.8 kg Blood Glucose* 117 120 140 Patient Weight 06/04/18 23:59 Weight 102.8 kg - Labs 06/04/18 05:02 06/04/18 05:02 Diabetes panel 06/03/18 06/04/18 Range/Units 04:46 05:02 Sodium 133 L 139 (136-145) mEq/L Potassium 4.9 4.3 (3.5-5.1) mEq/L Chloride 103 107 (98-107) mEq/L Carbon Dioxide 19 L 26 (23-29) mEq/L BUN 23 H 18 (6-20) mg/dL Creatinine 1.53 H 1.19 (0.70-1.30) mg/dL Glucose 157 H 147 H (70-105) mg/dL Calcium 8.2 L 8.6 (8.6-10.3) mg/dL AST 20 (13-39) Units/L ALT 16 (7-52) Units/L Alkaline Phosphatase 68 (34-104) Units/L Albumin 3.1 L (3.5-5.7) g/dL Triglycerides 332 H (< 150) mg/dL Calcium panel 06/03/18 06/04/18 Range/Units 04:46 05:02 Calcium 8.2 L 8.6 (8.6-10.3) mg/dL Phosphorus 3.5 3.4 (2.7-4.5) mg/dL Albumin 3.1 L (3.5-5.7) g/dL Pituitary panel 06/03/18 06/04/18 Range/Units 04:46 05:02 Sodium 133 L 139 (136-145) mEq/L Potassium 4.9 4.3 (3.5-5.1) mEq/L Chloride 103 107 (98-107) mEq/L Carbon Dioxide 19 L 26 (23-29) mEq/L BUN 23 H 18 (6-20) mg/dL Creatinine 1.53 H 1.19 (0.70-1.30) mg/dL Glucose 157 H 147 H (70-105) mg/dL Calcium 8.2 L 8.6 (8.6-10.3) mg/dL Adrenal panel 06/03/18 06/04/18 Range/Units 04:46 05:02 Sodium 133 L 139 (136-145) mEq/L Potassium 4.9 4.3 (3.5-5.1) mEq/L Chloride 103 107 (98-107) mEq/L Carbon Dioxide 19 L 26 (23-29) mEq/L BUN 23 H 18 (6-20) mg/dL Creatinine 1.53 H 1.19 (0.70-1.30) mg/dL Glucose 157 H 147 H (70-105) mg/dL Calcium 8.2 L 8.6 (8.6-10.3) mg/dL Total Bilirubin 0.5 (0.3-1.0) mg/dL AST 20 (13-39) Units/L ALT 16 (7-52) Units/L Alkaline Phosphatase 68 (34-104) Units/L Albumin 3.1 L (3.5-5.7) g/dL - Attending Attestation patient seen and examined. I have reviewed all labs, imaging, and notes. I wish to add the following to the assessment and plan... 52M h/o perf'd duodenal ulcer 2/2 NSAIDS s/p evie patch complicated by microabscesses presented with peritonitis and pneumoperitoneum s/p ex lap and surgical drainage of intraabdominal abscess; no evidence of bile staining or leak from GI tract; current with drain with bilious contents; concern for small leak; currently stable, yet intubated on the ventilator. open abdomen cont supportive care possible contrast study on 06/04 plan for operative intervention on 06/05
[2018-06-03] MEDS ORDERED: Ringers Solution, Lactated 500 ML IVC ONE (11:06)
[2018-06-03] MEDS ORDERED: Artificial Tears SOLN 15 ML BOTTLE BOTH EYES PRN (11:10)
[2018-06-03] MEDS ORDERED: Lidocaine -MPF 1% 5 ML AMPUL INFILT ONE (11:27)
[2018-06-03] MEDS: Artificial Tears SOLN 15 ML BOTTLE BOTH EYES SCH ×4 (13:42→23:41)
--- NOTE | 2018-06-03 14:42 | Infectious Disease Consult ---
Date of Encounter: 06/03/18 Time of Encounter: 14:39 Assessment and Plan (1) Severe sepsis Status: Acute Assessment and plan: Likely secondary to intra-abdominal abscess with perforated viscus and bacteremia (2) Bacteremia due to Gram-negative bacteria Status: Acute Assessment and plan: So far cultures in the blood are growing gram-negative rods PCR picked up Escherichia coli Susceptibilities are pending Likely source intra-abdominal but also patient has urethral stents and nephrolithiasis Patient was started on empiric Zosyn and Diflucan for perforated viscus Agree with current treatment Repeat cultures 2 to make sure the bacteremia has resolved Dosages antibiotics based on creatinine clearance (3) Perforated abdominal viscus Status: Acute Assessment and plan: Initially it was due to duodenitis likely from NSAIDs. I spoke with Dr. Maria and there is a concerned that the patch they placed on previously was laying under a pocket of pus which kept irritating it and causative perforated again Started empiric Zosyn and Diflucan Patient's Intra-Op cultures previously were negative for VRE but had a urine that was positive for VRE in the past Might be going back to surgery once hemodynamically stable. (4) VRE (vancomycin-resistant Enterococci) Status: Acute Assessment and plan: History of VRE in the urine (5) Intra-abdominal abscess Status: Acute Assessment and plan: Status post exploratory laparotomy. Intra-Op cultures sent Awaiting cultures to finalize (6) Pneumoperitoneum Status: Acute (7) Acute on chronic renal failure Status: Acute Assessment and plan: Dose adjust antibiotics based on creatinine clearance. We will ask pharmacy to help. Qualifiers: Acute renal failure type: unspecified Chronic kidney disease stage: unspecified stage Qualified Code(s): N17.9 - Acute kidney failure, unspecified ; N18.9 - Chronic kidney disease, unspecified (8) Allergy to multiple antibiotics Status: Acute Infectious Disease HPI - Data of Consult Patient: known to practice within the last 3 years Consult date: 06/03/18 Requesting Physician: Rafi Crabtree MD Primary Care Provider: Zafar Hinton MD - Consult Narrative Reason for consult: perforated viscus History of present illness: Mr. Grossman is a 52 year old male Patient is a 52-year-old gentleman who presented to [place] on 06/02/2018 with abdominal pain, we are consulted today for abdominal abscess with recent long- term antibiotics and antifungal use. Briefly, Patient is a 52-year-old gentleman with past medical history mentioned below presented to [place] on 04/04/2018 with abdominal pain and was found to have perforated bowel secondary to probably taking a lot of NSAIDs. CT abdomen and pelvis on 04/04 revealed nterval improvement in right hydronephrosis status post new double-J~ureteral stent on the right. Persistent nephroliths and ureterolith as noted above. There appears to be an new stone at the right ureteropelvic junction.~The distal ureterolith is unchanged in position. Possible acute duodenitis. A repeat CT abdomen and pelvis on 04/05 revealed evidence of duodenal perforation with free air seen in the abdomen as well as a small amount of free fluid. Patient was taken to surgery where he underwent an exploratory laparotomy with a Khanh patch of duodenal ulcer. Patient was started on empiric antibiotics but a urine culture was obtained and it came back positive for VRE Patient was treated with daptomycin and Zosyn on Diflucan from April 04 to discharge on April 25 patient was then switched to oral antibiotics includes Augmentin fluconazole and Zyvox. Plan was to treat for a good 6 weeks. Patient' s Augmentin apparently was changed to Omnicef and Flagyl because they thought maybe that Augmentin is causing nausea. Patient underwent a repeat CT scan on which revealed: Residual periduodenal fluid collection measuring 3 x 2.9 cm as well as ~ scattered small fluid collections with air anterior in the mesentery. Overall improvement compared with the previous evaluation. Residual thickening of the distal stomach and proximal duodenum. Patent right ureteric stent. 05/14: patient switched to augmentin and fluconazole for 21 more days. This time patient was reported abdominal pain starting in the left mid abdomen and become diffuse across the entire mid lower abdomen. Since admission, patient has been febrile with a MAXIMUM TEMPERATURE of 100.2 he was tachycardic with a heart rate in the 130s and 140s and he was also tachypneic. Presenting labs revealed a WBC of 14,000 with 88% neutrophils no bands. Patient was also noted to be in acute kidney injury with a BUN of 28 creatinine of 1.65 patient had blood cultures done and is growing gram-negative rods on the culture and the PCR picked up Escherichia coli. A CT of the abdomen pelvis revealed thickening of the gastric antrum with adjacent extraluminal fluid and gas suggesting an anastomotic leak versus recurrent or new perforated ulcer. Patient was taken to surgery by Dr. Maria on June 02 were he had exploratory laparotomy and drainage of intra-abdominal abscess. Intra-Op and routine cultures were sent are still pending. Gram stain doses revealing gram- negative rods. Patient was started on Diflucan and Zosyn and we were asked to evaluate the patient and make further recommendations CC: Rafi Crabtree MD Past Med Surg Social Fam HX - Past Medical History Medical history: diabetes, GERD, hyperlipidemia, hypertension, kidney stones Psychiatric history: no psych history - Past Surgical History Surgical History: cataract, cholecystectomy, herniorrhaphy, orthopedic, other Additional surgical history: LEFT FOOT SURGERY WITH RODS IN FOOT, BILT KNEE SURGERY, HERNIA REPAIR, EYE IMPLANTS - Social History Smoking Status: Never smoker Smokeless Tobacco Status: No Alcohol use: none Drug use: none - Family History Mother Living Status: Hx Family Cardiac Disorders: Yes (HTN) Hx Family GI Disorders: Yes (GERD) Infectious Disease-CN:Meds Aspirin 81 mg PO DAILY 10/14/16 [History] Metformin HCl [Glucophage] 1,000 mg PO BID 10/14/16 [History] Triamterene/HCTZ 37.5/25mg [Dyazide] 1 tab PO DAILY 10/15/16 [History] Losartan Potassium [Cozaar] 100 mg PO DAILY 04/04/18 [History] hydrALAZINE [HydrALAZINE] 25 mg PO BID 04/04/18 [History] Metoprolol [Lopressor] 75 mg PO BID 30 Days #60 tablet 04/24/18 [Rx] Omeprazole [PriLOSEC] 20 mg PO BIDAC 30 Days #60 capsule. 04/24/18 [Rx] Amoxicillin/Clavulanate [Augmentin] 875 mg PO BIDWM 13 Days #26 tablet 04/25/18 [Rx] Fluconazole [Diflucan] 200 mg PO DAILY 13 Days #13 tab 05/01/18 [Rx] Linezolid [Zyvox] 600 mg PO BID 13 Days #26 tablet 05/01/18 [Rx] Metoclopramide [Reglan] 5 mg PO Q6HR #28 ud.liq 05/01/18 [Rx] Ondansetron ODT [Zofran ODT] 8 mg SL Q8HR #30 tab.rapdis 05/01/18 [Rx] 3 Allergy/AdvReac Type Severity Reaction Status Date / Time ciprofloxacin [From Cipro] Allergy Swelling Verified 06/02/18 13:16 of Lip/Tongue/Throat azithromycin AdvReac Vomiting Verified 06/02/18 13:16 codeine AdvReac Vomiting Verified 06/02/18 13:16 Review of systems: Patient is intubated and sedated unable to obtain review of systems Exam - Constitutional Vitals: Temp Pulse Resp BP Pulse Ox 98.6 F 60 14 93/64 99 06/03/18 12:18 06/03/18 13:00 06/03/18 13:56 06/03/18 13:00 06/03/18 13:56 General appearance: no cooperative Exam: Intubated and sedated - Head Head exam: Present: normocephalic. Absent: atraumatic - Eye Eye exam: Present: EOMI, PERRL, sclera anicteric - ENT Additional comments: Endotracheal tube intact. No oral lesions - Neck Additional comments: Trachea is midline. No stridor - Respiratory Additional comments: Chest expanding symmetrically. Air sounds audible both lung guerra. - Cardiovascular Cardiovascular exam: Present: RRR, +S1, +S2, tachycardia - GI/Abdominal Additional comments: Postsurgical abdomen. Midline abdomen open with wound VAC in place. Patient has drains in the right upper quadrant and left lower quadrant. - Extremities Exam Extremities exam: Present: normal inspection. Absent: pedal edema - Neurological Exam Additional comments: Limited unable to assess patient opens eyes spontaneously and holding his ' s hand Infectious Disease CN: Results - Labs CBC & Chem 7: 06/03/18 04:46 06/03/18 04:46 Cultures: Cultures 06/02/18 20:12 Body Fluid Culture - Preliminary Peritoneal Fluid - VTE Documentation of Mechanical Device: Intermittent pneumatic compression device Consult Discharge Plan - Plan Referrals: Zafar Hinton MD [Primary Care Provider] -
[2018-06-03] MEDS ORDERED: Clinimix E 5%-15% SOLUTION 2,000 ML with MVI, adult with vitamin K 10 ML IVC SCH (17:00)
[2018-06-03] MEDS: Chlorhexidine Rinse 15 ML MOUTHWASH MM SCH (21:16)
[2018-06-04 04:24] LABS: ABG Base Excess -1 mEq/L (-2 to 3); ABG HCO3 25 mEq/L (21-27); ABG Oxygen Saturation 98 % (95-98); ABG PCO2 48 mmHg (35-45); ABG PH 7.33 pH Units (7.32-7.45); ABG PO2 109 mmHg (85-104); ABG TCO2 27 mEq/L (20-26); Blood Gas Modality ASSIST CONTROL; Blood Gas PEEP 5 cm H2O; Blood Gas Respiration Rate 14; Blood Gas VT 500 cc
[2018-06-04] MEDS: Artificial Tears SOLN 15 ML BOTTLE BOTH EYES SCH ×5 (04:24→20:42)
[2018-06-04 05:00] LABS: Albumin 3.1 g/dL (3.5-5.7); Albumin/Globulin Ratio 1.3 (1.1-2.2); Bilirubin,Indirect 0.5 mg/dL (0.0-1.2); Bilirubin,Total 0.5 mg/dL (0.3-1.0); Globulin 2.4 g/dL (2.4-3.5); Total Protein 5.5 g/dL (6.4-8.9)
[2018-06-04] MEDS: FentaNYL (PF) 1,000 MCG in 0.9 % Sodium Chloride 80 ML IVC SCH ×4 (05:10→21:30)
[2018-06-04] MEDS: Insulin LISPRO 300 UNITS/3 ML VIAL SQ SCH ×3 (05:13→17:32)
[2018-06-04 05:23] LABS: Basophils % 0.2 %; Eosinophils % 0.1 %; Hematocrit 31.1 % (37.5-50.1); Hemoglobin 9.7 g/dL (12.9-16.9); Immature Granulocytes % 2.4 % (0-4); Lymphocytes # 0.7 K/mcL (0.6-4.6); Lymphocytes % 7.8 %; Mean Corpuscular HGB Conc 31.2 g/dL (31.6-35.5); Mean Corpuscular Hemoglobin 27.5 pg (28.0-33.3); Mean Corpuscular Volume 88.1 fL (83.0-100.0); Mean Platelet Volume 10.3 fL (9.4-12.4); Monocytes # 0.4 K/mcL (0.0-1.3); Monocytes % 4.1 %; Neutrophils # 7.4 K/mcL (1.6-8.9); Platelet Count 179 K/mcL (140-400); Red Blood Count 3.53 M/mcL (4.19-5.50); Red Cell Distribution Width 15.5 % (11.5-14.5); Segmented Neutrophils % 85.4 %
[2018-06-04 05:24] LABS: VBG Ionized Calcium 1.19 mmol/L (1.15-1.35)
[2018-06-04 05:50] LABS: BUN/Creatinine Ratio 15 (6-26); Blood Urea Nitrogen 18 mg/dL (6-20); Calcium 8.6 mg/dL (8.6-10.3); Carbon Dioxide 26 mEq/L (23-29); Chloride 107 mEq/L (98-107); Glucose 147 mg/dL (70-105); Magnesium 1.8 mg/dL (1.6-2.6); Osmolality,Calculated 293 (280-300); Phosphorous 3.4 mg/dL (2.7-4.5); Potassium 4.3 mEq/L (3.5-5.1); Sodium 139 mEq/L (136-145); Triglycerides 332 mg/dL (< 150); eGFR For Non-African Americans > 60 (> 60)
--- NOTE | 2018-06-04 07:28 | Pulmonology Progress Note ---
<NakulKota verdugo W - Last Filed: 06/04/18 08:25> Date of Encounter: 06/04/18 Objective PUL Vital signs: Last Vital Signs Temp 98.6 F 06/04/18 07:50 Pulse 58 06/04/18 06:00 Resp 14 06/04/18 07:25 BP 92/63 06/04/18 06:00 Pulse Ox 98 06/04/18 07:25 Ventilator Settings Ventilator Settings: Ventilator Settings, Last 8 Hours Ventilator Tidal Volume 500 Setting Ventilator Tidal Volume 500 Setting Ventilator Tidal Volume 500 Setting Ventilator Tidal Volume 500 Setting Ventilator Tidal Volume 500 Setting Ventilator Tidal Volume 500 Setting Ventilator Tidal Volume 500 Setting Ventilator Tidal Volume 500 Setting Ventilator Tidal Volume 500 Setting Ventilator Tidal Volume 500 Setting Ventilator Tidal Volume 500 Setting Ventilator Tidal Volume 500 Setting Ventilator Respiratory Rate 14 Setting Ventilator Respiratory Rate 14 Setting Ventilator Respiratory Rate 14 Setting Ventilator Respiratory Rate 14 Setting Ventilator Respiratory Rate 14 Setting Ventilator Respiratory Rate 14 Setting Ventilator Respiratory Rate 14 Setting Ventilator Respiratory Rate 14 Setting Ventilator Respiratory Rate 14 Setting Ventilator Respiratory Rate 14 Setting Ventilator Respiratory Rate 14 Setting Ventilator Respiratory Rate 14 Setting Actual Respiratory Rate 14 Actual Respiratory Rate 14 Actual Respiratory Rate 14 Actual Respiratory Rate 15 Actual Respiratory Rate 14 Actual Respiratory Rate 14 Actual Respiratory Rate 14 Actual Respiratory Rate 14 Actual Respiratory Rate 14 Actual Respiratory Rate 14 Actual Respiratory Rate 14 Positive End Expiratory 5 Pressure Positive End Expiratory 5 Pressure Positive End Expiratory 5 Pressure Positive End Expiratory 5 Pressure Positive End Expiratory 5 Pressure Positive End Expiratory 5 Pressure Positive End Expiratory 5 Pressure Positive End Expiratory 5 Pressure Positive End Expiratory 5 Pressure Positive End Expiratory 5 Pressure Positive End Expiratory 5 Pressure Positive End Expiratory 5 Pressure Peak Inspiratory Airway 19 Pressure Peak Inspiratory Airway 19 Pressure Peak Inspiratory Airway 18 Pressure Peak Inspiratory Airway 20 Pressure Peak Inspiratory Airway 19 Pressure Peak Inspiratory Airway 18 Pressure Peak Inspiratory Airway 18 Pressure Peak Inspiratory Airway 19 Pressure Peak Inspiratory Airway 18 Pressure Peak Inspiratory Airway 18 Pressure Peak Inspiratory Airway 19 Pressure Results - Laboratory Findings CBC and BMP: 06/04/18 05:02 06/04/18 05:02 ABG ABG pH 7.33 pH Units (7.32-7.45) 06/04/18 04:21 ABG pCO2 48 mmHg (35-45) H 06/04/18 04:21 ABG pO2 109 mmHg (85-104) H 06/04/18 04:21 ABG O2 Saturation 98 % (95-98) 06/04/18 04:21 PT/INR, D-dimer PT 12.9 Seconds (9.4-12.1) H 06/02/18 17:29 Abnormal lab findings: Abnormal lab results RBC 3.53 M/mcL (4.19-5.50) L 06/04/18 05:02 Hgb 9.7 g/dL (12.9-16.9) L 06/04/18 05:02 Hct 31.1 % (37.5-50.1) L 06/04/18 05:02 MCH 27.5 pg (28.0-33.3) L 06/04/18 05:02 MCHC 31.2 g/dL (31.6-35.5) L 06/04/18 05:02 RDW 15.5 % (11.5-14.5) H 06/04/18 05:02 PT 12.9 Seconds (9.4-12.1) H 06/02/18 17:29 ABG pCO2 48 mmHg (35-45) H 06/04/18 04:21 ABG pO2 109 mmHg (85-104) H 06/04/18 04:21 ABG Total CO2 27 mEq/L (20-26) H 06/04/18 04:21 Glucose 147 mg/dL (70-105) H 06/04/18 05:02 POC Glucose 152 mg/dL (70-99) H 06/03/18 23:22 Creatine Kinase 11 Units/L (30-223) L 06/02/18 17:29 Serum Total Protein 5.5 g/dL (6.4-8.9) L 06/03/18 04:46 Albumin 3.1 g/dL (3.5-5.7) L 06/03/18 04:46 Triglycerides 332 mg/dL (< 150) H 06/04/18 05:02 Urine Clarity Cloudy (Clear) A 06/02/18 09:18 Urine Protein 100 mg/dL (Neg-Trace) H 06/02/18 09:18 Urine Blood Large (Negative) H 06/02/18 09:18 Ur Leukocyte Esterase Moderate (Negative) H 06/02/18 09:18 Urine Microscopic RBC TNTC per hpf (0-3) H 06/02/18 09:18 Urine Microscopic WBC 15-30 per hpf (0-3) H 06/02/18 09:18 Ur Squamous Epith Cells Many per lpf (None-Few) H 06/02/18 09:18 Ur Culture Indicated? NO. (NO) A 06/02/18 09:18 Enterobacteriac sp PCR DETECTED (Not Detect) A 06/02/18 09:18 E. coli (PCR) DETECTED (Not Detect) A 06/02/18 09:18 - Microbiology Findings Microbiology Findings: Microbiology, Last 48 Hours 06/02/18 20:12 Body Fluid Culture - Preliminary Peritoneal Fluid - Clinical Findings Intake & Output: Intake & Output 06/03/18 06/03/18 06/04/18 15:59 23:59 07:59 Intake Total 604 / 604 500 / 500 400 / 400 Output Total 655 / 655 1325 / 1325 1245 / 1245 Balance -51 / -51 -825 / -825 -845 / -845 Weight 102.8 kg Consult Discharge Plan - Plan Referrals: Zafar Hinton MD [Primary Care Provider] - - Attending Attestation I examined this patient and my medical decision-making was reviewed with the Resident Physician. I agree with the documented findings, disposition and treatment plan as described except to the extent set forth below. We independently had [id number] contact with the patient Patient seen and examined at bedside Labs, radiology, chart personally reviewed. Management was reviewed during multidisciplinary critical care rounds. PROVISIONING ANALYST: The patient is sedated on the vent but he is able to follow simple commands and open his eyes without evidence of gross of focal neurological deficit. We are employing continuous sedation strategy without holiday because of the open abdomen and risk of the patient having severe complications with agitation Pulm: Patient is vented with acceptable gas exchange he is not a candidate for spontaneous breathing trial because of planned transfer to the OR later today Cards: Hemodynamically stable continue to match intake and output GI: He has evidence of viscous purpuric perforation with intra-abdominal abscess formation after a Khanh patch repair of duodenal ulcer he is postop day #2 status post exploratory laparoscopy with washout plan for revision in operating room. general surgery who is managing this aspect of the case Nutrition: He is started on TPN per nutrition and surgery recommendations Renal: UOP Monitored, Cont to Trend sCr and monitor Electrolytes. ID: Being treated for Escherichia coli bacteremia likely from intra-abdominal source culture and sensitivities pending he is also being treated for intra- abdominal infection with Diflucan appreciated infectious disease recommendations Heme/Onc: DVT prophylaxis given Endo: Glucose Monitored Integ/MSK: Skin Care per routine ICU Nursing Protocol to prevent ulcers. Lines: All lines examined without evidence of infection : Dispo: Remain in ICU CODE: Full <Nathaniel Kumar - Last Filed: 06/04/18 10:59> Date of Encounter: 06/04/18 Time of Encounter: 07:15 Assessment and Plan (1) Severe sepsis Current Visit: Yes Status: Acute Likely 2/2 intraabdominal abscess with purulent fluid collections. Remains intubated and sedated with propofol and fentanyl. ABG improved today. Ph 7.33, paco2 48, po2 109 on 30% fio2. He is negative on I/O's and will balance fluid status with bolus as needed to match output. His pressures have been stable and not requiring pressors. Tachycardia improved with pain control. He is afebrile ( tmax since admission 100.2) and leukocytosis down to 8.6 from 14. Lactic acid down from high of 5.1 to 1.2 today. Prelim blood culture pos for E coli. Will continue zosyn and diflucan for now. ID on board and recommends continue current treatment. Gen surg plan to return to OR for continued exploration tomorrow. (2) Bacteremia due to Gram-negative bacteria Current Visit: Yes Status: Acute Prelim blood culture pos for E coli via PCR, awaiting sensitivities. ID on board. Will continue current abx and recheck blood cultures for clearing. (3) Acute on chronic renal failure Current Visit: Yes Status: Acute Cr down from 1.99 to 1.19 today. Received 5L IVF day of admission. He is neg on fluids today and will match output with fluid bolus. Will monitor and replace electrolytes as needed. Qualifiers: Acute renal failure type: unspecified Chronic kidney disease stage: unspecified stage Qualified Code(s): N17.9 - Acute kidney failure, unspecified ; N18.9 - Chronic kidney disease, unspecified (4) Perforated viscus Current Visit: No Status: Acute S/p exlap, washout. Gen surg following and plan to take back to OR for continued exploration tomorrow. (5) Lactic acidosis Current Visit: Yes Status: Acute Improving from high of 5.1 down to 1.2 today. (6) Diabetes Current Visit: No Status: Chronic Hx of DM. NPO with SSI and acuchecks q6h. Qualifiers: Diabetes mellitus type: type 2 Diabetes mellitus residential insulin use: without residential use Diabetes mellitus complication status: with hyperglycemia Qualified Code(s): E11.65 - Type 2 diabetes mellitus with hyperglycemia (7) VRE (vancomycin-resistant Enterococci) Current Visit: No Status: Acute Hx of VRE in urine. Treated with outpatient abx with ID. (8) DVT prophylaxis Current Visit: No Status: Acute Mechanical prophylaxis Subjective Principal diagnosis: Severe sepsis Interval history: Nothing acute overnight. Intubated on vent. Abdominal incision open and on wound vac. Will open eyes and move hands, feet when asked. Objective PUL Vital signs: Last Vital Signs Temp 97.9 F 06/04/18 03:44 Pulse 58 06/04/18 06:00 Resp 14 06/04/18 06:00 BP 92/63 06/04/18 06:00 Pulse Ox 99 06/04/18 06:00 General appearance: no acute distress, asleep (intubated with sedation on board. Arousable to voice, will follow commands. ) Eyes: nonicteric ENT: oropharynx moist Auscultation: bilateral: clear Cardiovascular: regular rate and rhythm Gastrointestinal: soft, non-tender, other (Surg incision open, wound vac in place, no erythema, purulant drainage, or increased heat. ) Extremities: no cyanosis, no edema other (Intubated and sedated. He is arousable to voice and will follow commands , move hands/feet) Ventilator Settings Ventilator Settings: Ventilator Settings, Last 8 Hours Ventilator Tidal Volume 500 Setting Ventilator Tidal Volume 500 Setting Ventilator Tidal Volume 500 Setting Ventilator Tidal Volume 500 Setting Ventilator Tidal Volume 500 Setting Ventilator Tidal Volume 500 Setting Ventilator Tidal Volume 500 Setting Ventilator Tidal Volume 500 Setting Ventilator Tidal Volume 500 Setting Ventilator Tidal Volume 500 Setting Ventilator Tidal Volume 500 Setting Ventilator Tidal Volume 500 Setting Ventilator Respiratory Rate 14 Setting Ventilator Respiratory Rate 14 Setting Ventilator Respiratory Rate 14 Setting Ventilator Respiratory Rate 14 Setting Ventilator Respiratory Rate 14 Setting Ventilator Respiratory Rate 14 Setting Ventilator Respiratory Rate 14 Setting Ventilator Respiratory Rate 14 Setting Ventilator Respiratory Rate 14 Setting Ventilator Respiratory Rate 14 Setting Ventilator Respiratory Rate 14 Setting Ventilator Respiratory Rate 14 Setting Actual Respiratory Rate 14 Actual Respiratory Rate 14 Actual Respiratory Rate 15 Actual Respiratory Rate 14 Actual Respiratory Rate 14 Actual Respiratory Rate 14 Actual Respiratory Rate 14 Actual Respiratory Rate 14 Actual Respiratory Rate 14 Actual Respiratory Rate 14 Actual Respiratory Rate 14 Positive End Expiratory 5 Pressure Positive End Expiratory 5 Pressure Positive End Expiratory 5 Pressure Positive End Expiratory 5 Pressure Positive End Expiratory 5 Pressure Positive End Expiratory 5 Pressure Positive End Expiratory 5 Pressure Positive End Expiratory 5 Pressure Positive End Expiratory 5 Pressure Positive End Expiratory 5 Pressure Positive End Expiratory 5 Pressure Positive End Expiratory 5 Pressure Peak Inspiratory Airway 19 Pressure Peak Inspiratory Airway 18 Pressure Peak Inspiratory Airway 20 Pressure Peak Inspiratory Airway 19 Pressure Peak Inspiratory Airway 18 Pressure Peak Inspiratory Airway 18 Pressure Peak Inspiratory Airway 19 Pressure Peak Inspiratory Airway 18 Pressure Peak Inspiratory Airway 18 Pressure Peak Inspiratory Airway 19 Pressure Peak Inspiratory Airway 20 Pressure Results - Laboratory Findings CBC and BMP: 06/04/18 05:02 06/04/18 05:02 ABG ABG pH 7.33 pH Units (7.32-7.45) 06/04/18 04:21 ABG pCO2 48 mmHg (35-45) H 06/04/18 04:21 ABG pO2 109 mmHg (85-104) H 06/04/18 04:21 ABG O2 Saturation 98 % (95-98) 06/04/18 04:21 PT/INR, D-dimer PT 12.9 Seconds (9.4-12.1) H 06/02/18 17:29 Abnormal lab findings: Abnormal lab results RBC 3.53 M/mcL (4.19-5.50) L 06/04/18 05:02 Hgb 9.7 g/dL (12.9-16.9) L 06/04/18 05:02 Hct 31.1 % (37.5-50.1) L 06/04/18 05:02 MCH 27.5 pg (28.0-33.3) L 06/04/18 05:02 MCHC 31.2 g/dL (31.6-35.5) L 06/04/18 05:02 RDW 15.5 % (11.5-14.5) H 06/04/18 05:02 PT 12.9 Seconds (9.4-12.1) H 06/02/18 17:29 ABG pCO2 48 mmHg (35-45) H 06/04/18 04:21 ABG pO2 109 mmHg (85-104) H 06/04/18 04:21 ABG Total CO2 27 mEq/L (20-26) H 06/04/18 04:21 Glucose 147 mg/dL (70-105) H 06/04/18 05:02 POC Glucose 152 mg/dL (70-99) H 06/03/18 23:22 Creatine Kinase 11 Units/L (30-223) L 06/02/18 17:29 Serum Total Protein 5.5 g/dL (6.4-8.9) L 06/03/18 04:46 Albumin 3.1 g/dL (3.5-5.7) L 06/03/18 04:46 Triglycerides 332 mg/dL (< 150) H 06/04/18 05:02 Urine Clarity Cloudy (Clear) A 06/02/18 09:18 Urine Protein 100 mg/dL (Neg-Trace) H 06/02/18 09:18 Urine Blood Large (Negative) H 06/02/18 09:18 Ur Leukocyte Esterase Moderate (Negative) H 06/02/18 09:18 Urine Microscopic RBC TNTC per hpf (0-3) H 06/02/18 09:18 Urine Microscopic WBC 15-30 per hpf (0-3) H 06/02/18 09:18 Ur Squamous Epith Cells Many per lpf (None-Few) H 06/02/18 09:18 Ur Culture Indicated? NO. (NO) A 06/02/18:18 Enterobacteriac sp PCR DETECTED (Not Detect) A 06/02/18:18 E. coli (PCR) DETECTED (Not Detect) A 06/02/18 09:18 - Microbiology Findings Microbiology Findings: Microbiology, Last 48 Hours 06/02/18 20:12 Body Fluid Culture - Preliminary Peritoneal Fluid - Clinical Findings Intake & Output: Intake & Output 06/03/18 06/03/18 06/04/18 15:59 23:59 07:59 Intake Total 604 / 604 500 / 500 400 / 400 Output Total 655 / 655 1325 / 1325 865 / 865 Balance -51 / -51 -825 / -825 -465 / -465 Weight 102.8 kg - VTE Documentation of Mechanical Device: Intermittent pneumatic compression device
[2018-06-04] MEDS: Fluconazole 200 MG/100 ML 200 MG/100 ML BAG IVPB SCH (07:34)
[2018-06-04] MEDS: Chlorhexidine Rinse 15 ML MOUTHWASH MM SCH ×2 (07:34→20:43)
[2018-06-04] MEDS: Pantoprazole 40 MG VIAL IVP SCH (07:34)
[2018-06-04] MEDS: Piperacillin/Tazobactam 3.375 GM in 0.9 % Sodium Chloride Mini Bag 100 ML IVPB SCH ×2 (07:34→16:36)
--- NOTE | 2018-06-04 08:09 | General Surgery Progress Note ---
<Pedro Ocasio R - Last Filed: 06/04/18 08:06> Date of Encounter: 06/04/18 Time of Encounter: 07:40 - Assessment and Plan (1) Pneumoperitoneum Current Visit: Yes Status: Acute POD #2 s/p exploratory laparotomy, intra-abdominal abscess drainage,application abthera. Vital signs and labs remained stable at this time. Patient is sedated and intubated, is arousable to stimulation and will follow commands. Left SARBJIT drain #2 is located within the abscess and is draining brown/bilious fluid. Plan: We will discuss options with family when they come in today Plan for return to OR tomorrow Sedation and intubation, pulmonology following for ventilator Wound care and drain management IV antibiotics IV fluids Continue supportive care (2) Bacteremia due to Gram-negative bacteria Current Visit: Yes Status: Acute Preliminary blood culture is positive for Escherichia coli, sensitivity pending Continue antibiotics Pending final cultures and sensitivities Infectious diseases is following Management per ID and primary care team Subjective Patient reports: other (Intubated and sedated) Narrative: Patient remains in the ICU. He is intubated and sedated. No family present at bedside during this morning's evaluation. Nursing is asked to contact Dr. Hernandez when family arrives. Objective Vital Signs - Last 8 Hours Temp Pulse Resp BP Pulse Ox 06/04/18 07:50 98.6 F 06/04/18 07:25 14 98 06/04/18 06:00 58 14 92/63 99 06/04/18 05:42 14 92/63 99 06/04/18 05:00 57 15 93/66 99 06/04/18 04:32 59 06/04/18 04:00 54 14 86/59 99 06/04/18 03:44 97.9 F 06/04/18 03:32 14 86/62 99 06/04/18 03:00 54 14 84/59 99 06/04/18 02:00 61 14 85/60 98 06/04/18 01:06 14 86/62 99 06/04/18 01:00 60 14 86/62 99 06/04/18 00:19 97.5 F L Intake and Output 06/03/18 06/04/18 06/04/18 23:59 07:59 15:59 Intake Total 500 / 500 400 / 400 Output Total 1325 / 1325 1245 / 1245 Balance -825 / -825 -845 / -845 Intake: IV Fluids 500 / 500 400 / 400 FentaNYL (PF) 1,000 MCG In 0.9 200 / 200 100 / 100 % Sodium Chloride 80 ML @ 50 MCG/HR 5 mls/hr IVC CONT [place] Rx #:[id number] Diprivan 1,000 mg In 100 ml @ 200 / 200 200 / 200 10 MCG/KG/MIN 6.26 mls/hr IVC . [id number] [place] Rx#:[id number] Zosyn 3.375 GM In 0.9 % Sodium 100 / 100 100 / 100 Chloride (Mini-Bag +) 100 ML @ 25 mls/hr IVPB Q8HR [place] Rx#: [id number] Output: Catheter 1200 / 1200 1100 / 1100 Gastric Drainage 0 / 0 Wound Drainage 125 / 125 145 / 145 Abdomen 75 / 75 50 / 50 Left Abdomen 35 / 35 70 / 70 Right Abdomen 15 / 15 25 / 25 Other: Weight 102.8 kg Blood Glucose* 120 140 Patient Weight 06/04/18 23:59 Weight 102.8 kg - General physical appearance other (Sedated and intubated) - Eyes PERRL - ENT normal mucosa, atraumatic, normocephalic - Neck Neck exam: trachea midline - Respiratory normal expansion, clear to auscultation - Cardiovascular Cardiovascular exam: Present: RRR - Abdomen Abdomen: Present: soft, wound ([address], open surgical incision with wound vac) - Incision Incision: Present: open (With wound VAC in place) - Integumentary no rash - Labs 06/04/18 05:02 06/04/18 05:02 Diabetes panel 06/03/18 06/04/18 Range/Units 04:46 05:02 Sodium 133 L 139 (136-145) mEq/L Potassium 4.9 4.3 (3.5-5.1) mEq/L Chloride 103 107 (98-107) mEq/L Carbon Dioxide 19 L 26 (23-29) mEq/L BUN 23 H 18 (6-20) mg/dL Creatinine 1.53 H 1.19 (0.70-1.30) mg/dL Glucose 157 H 147 H (70-105) mg/dL Calcium 8.2 L 8.6 (8.6-10.3) mg/dL AST 20 (13-39) Units/L ALT 16 (7-52) Units/L Alkaline Phosphatase 68 (34-104) Units/L Albumin 3.1 L (3.5-5.7) g/dL Triglycerides 332 H (< 150) mg/dL Calcium panel 06/03/18 06/04/18 Range/Units 04:46 05:02 Calcium 8.2 L 8.6 (8.6-10.3) mg/dL Phosphorus 3.5 3.4 (2.7-4.5) mg/dL Albumin 3.1 L (3.5-5.7) g/dL Pituitary panel 06/03/18 06/04/18 Range/Units 04:46 05:02 Sodium 133 L 139 (136-145) mEq/L Potassium 4.9 4.3 (3.5-5.1) mEq/L Chloride 103 107 (98-107) mEq/L Carbon Dioxide 19 L 26 (23-29) mEq/L BUN 23 H 18 (6-20) mg/dL Creatinine 1.53 H 1.19 (0.70-1.30) mg/dL Glucose 157 H 147 H (70-105) mg/dL Calcium 8.2 L 8.6 (8.6-10.3) mg/dL Adrenal panel 06/03/18 06/04/18 Range/Units 04:46 05:02 Sodium 133 L 139 (136-145) mEq/L Potassium 4.9 4.3 (3.5-5.1) mEq/L Chloride 103 107 (98-107) mEq/L Carbon Dioxide 19 L 26 (23-29) mEq/L BUN 23 H 18 (6-20) mg/dL Creatinine 1.53 H 1.19 (0.70-1.30) mg/dL Glucose 157 H 147 H (70-105) mg/dL Calcium 8.2 L 8.6 (8.6-10.3) mg/dL Total Bilirubin 0.5 (0.3-1.0) mg/dL AST 20 (13-39) Units/L ALT 16 (7-52) Units/L Alkaline Phosphatase 68 (34-104) Units/L Albumin 3.1 L (3.5-5.7) g/dL - VTE Documentation of Mechanical Device: Intermittent pneumatic compression device Consult Discharge Plan - Plan Referrals: Zafar Hinton MD [Primary Care Provider] - <Benedict Serrano - Last Filed: 06/04/18 09:00> Date of Encounter: 06/04/18 Objective Vital Signs - Last 8 Hours Temp Pulse Resp BP Pulse Ox 06/04/18 07:50 98.6 F 06/04/18 07:25 14 98 06/04/18 06:00 58 14 92/63 99 06/04/18 05:42 14 92/63 99 06/04/18 05:00 57 15 93/66 99 06/04/18 04:32 59 06/04/18 04:00 54 14 86/59 99 06/04/18 03:44 97.9 F 06/04/18 03:32 14 86/62 99 06/04/18 03:00 54 14 84/59 99 06/04/18 02:00 61 14 85/60 98 06/04/18 01:06 14 86/62 99 06/04/18 01:00 60 14 86/62 99 Intake and Output 06/03/18 06/04/18 06/04/18 23:59 07:59 15:59 Intake Total 500 / 500 400 / 400 Output Total 1325 / 1325 1245 / 1245 Balance -825 / -825 -845 / -845 Intake: IV Fluids 500 / 500 400 / 400 FentaNYL (PF) 1,000 MCG In 0.9 200 / 200 100 / 100 % Sodium Chloride 80 ML @ 50 MCG/HR 5 mls/hr IVC CONT [place] Rx #:[id number] Diprivan 1,000 mg In 100 ml @ 200 / 200 200 / 200 10 MCG/KG/MIN 6.26 mls/hr IVC . [id number] [place] Rx#:[id number] Zosyn 3.375 GM In 0.9 % Sodium 100 / 100 100 / 100 Chloride (Mini-Bag +) 100 ML @ 25 mls/hr IVPB Q8HR [place] Rx#: [id number] Output: Catheter 1200 / 1200 1100 / 1100 Gastric Drainage 0 / 0 Wound Drainage 125 / 125 145 / 145 Abdomen 75 / 75 50 / 50 Left Abdomen 35 / 35 70 / 70 Right Abdomen 15 / 15 25 / 25 Other: Weight 102.8 kg Blood Glucose* 120 140 Patient Weight 06/04/18 23:59 Weight 102.8 kg - Labs 06/04/18 05:02 06/04/18 05:02 Diabetes panel 06/03/18 06/04/18 Range/Units 04:46 05:02 Sodium 133 L 139 (136-145) mEq/L Potassium 4.9 4.3 (3.5-5.1) mEq/L Chloride 103 107 (98-107) mEq/L Carbon Dioxide 19 L 26 (23-29) mEq/L BUN 23 H 18 (6-20) mg/dL Creatinine 1.53 H 1.19 (0.70-1.30) mg/dL Glucose 157 H 147 H (70-105) mg/dL Calcium 8.2 L 8.6 (8.6-10.3) mg/dL AST 20 (13-39) Units/L ALT 16 (7-52) Units/L Alkaline Phosphatase 68 (34-104) Units/L Albumin 3.1 L (3.5-5.7) g/dL Triglycerides 332 H (< 150) mg/dL Calcium panel 06/03/18 06/04/18 Range/Units 04:46 05:02 Calcium 8.2 L 8.6 (8.6-10.3) mg/dL Phosphorus 3.5 3.4 (2.7-4.5) mg/dL Albumin 3.1 L (3.5-5.7) g/dL Pituitary panel 06/03/18 06/04/18 Range/Units 04:46 05:02 Sodium 133 L 139 (136-145) mEq/L Potassium 4.9 4.3 (3.5-5.1) mEq/L Chloride 103 107 (98-107) mEq/L Carbon Dioxide 19 L 26 (23-29) mEq/L BUN 23 H 18 (6-20) mg/dL Creatinine 1.53 H 1.19 (0.70-1.30) mg/dL Glucose 157 H 147 H (70-105) mg/dL Calcium 8.2 L 8.6 (8.6-10.3) mg/dL Adrenal panel 06/03/18 06/04/18 Range/Units 04:46 05:02 Sodium 133 L 139 (136-145) mEq/L Potassium 4.9 4.3 (3.5-5.1) mEq/L Chloride 103 107 (98-107) mEq/L Carbon Dioxide 19 L 26 (23-29) mEq/L BUN 23 H 18 (6-20) mg/dL Creatinine 1.53 H 1.19 (0.70-1.30) mg/dL Glucose 157 H 147 H (70-105) mg/dL Calcium 8.2 L 8.6 (8.6-10.3) mg/dL Total Bilirubin 0.5 (0.3-1.0) mg/dL AST 20 (13-39) Units/L ALT 16 (7-52) Units/L Alkaline Phosphatase 68 (34-104) Units/L Albumin 3.1 L (3.5-5.7) g/dL - Attending Attestation I have personally seen and examined the patient. I have reviewed pertinent labs , imaging, progress notes, including this one. I agree with the above assessment and plan and wish to include the following... Patient is normotensive, no pressors, good UOP; still with bilious output from drain consistent with leak despite having NG tube; will plan for return to OR on 06/05 cont supportive care by ICU
--- NOTE | 2018-06-04 15:40 | Infectious Disease Progress No ---
Date of Encounter: 06/04/18 Time of Encounter: 11:10 - Assessment and Plan (1) Severe sepsis Current Visit: Yes Status: Acute The patient had 3 sepsis criteria on admission. Likely secondary to bacteremia and intra-abdominal abscess. Improved. Tachycardia and tachypnea and leukocytosis have resolved. Blood cultures obtained 06/02/18 her +1 out of 2 sets for Escherichia coli per PCR. Repeat blood cultures drawn 06/04/18 are pending 2 sets. (2) Bacteremia due to Gram-negative bacteria Current Visit: Yes Status: Acute Causative organism: Escherichia coli per PCR. Source likely intra-abdominal abscess. Blood cultures obtained 06/02/18 are +1 out of 2 sets for Escherichia coli per PCR. Repeat blood cultures 06/04/18 are pending 2 sets. Await final identification and sensitivity. Continue Zosyn 3.375 g IV every 8 hours. Duration of treatment depends on the clinical picture. Monitor renal function and a productive toxicity and dose adjust antibiotics. (3) Intra-abdominal abscess Current Visit: No Status: Acute Likely secondary to perforated viscus. Causative organism unclear. Status post exploratory laparotomy, drainage of intra-abdominal abscess. 06/02/[address] Maria. Operative note was reviewed. Gross purulence noted and dropped, but no succus, bile, or staining was seen in the abdominal cavity. Intraoperative cultures were obtained and are pending. The Gram stain is positive for gram-negative rods. Likely Escherichia coli based on blood culture results. Gen. surgery team is planning for a second look in the operating room again tomorrow. Continue Zosyn 3.375 g IV every 8 hours for now. Distress antibiotics based on creatinine clearance. Duration of treatment depends on the clinical picture. Wound care and activity restrictions per the surgery team. (4) Perforated abdominal viscus Current Visit: No Status: Acute Initially was thought to likely be secondary to NSAID use. Concern that this perforation may be secondary to the patch they placed previously was laying under pocket of pus which kept irritating it and cause perforation again. Continue Zosyn as stated above. Continue fluconazole 200 mg IV daily. Further surgical intervention to be determined by the surgery team. (5) Acute on chronic renal failure Current Visit: Yes Status: Acute Likely secondary to severe sepsis. Improved. Continue to trend. Dose adjust antibiotics based on creatinine clearance. Avoid nephrotoxins as able. Qualifiers: Acute renal failure type: unspecified Chronic kidney disease stage: unspecified stage Qualified Code(s): N17.9 - Acute kidney failure, unspecified ; N18.9 - Chronic kidney disease, unspecified (6) Pneumoperitoneum Current Visit: Yes Status: Acute Secondary to perforated viscus. Further management per the general surgery team. (7) Allergy to multiple antibiotics Current Visit: Yes Status: Acute (8) VRE (vancomycin-resistant Enterococci) Current Visit: No Status: Acute Patient has a history of VRE in the urine. Continue contact precautions per hospital protocol. - Subjective Interval history: Patient seen and examined. No acute events noted overnight. Patient currently intubated and sedated on the ventilator. He does open his eyes and follows some commands. He is unable to provide me with any review of systems information. Per nursing, the patient is scheduled to go back to the operating room tomorrow. No new issues per nursing. Infect Dis PN-Objective Data - Labs CBC & Chem 7: 06/05/18 04:50 06/05/18 04:50 Labs: Laboratory Results - last 24 hr 06/03/18 06/03/18 06/03/18 04:46 15:03 18:11 WBC RBC Hgb Hct MCV MCH MCHC RDW Plt Count MPV Immature Gran % Seg Neutrophils % Lymphocytes % Monocytes % Eosinophils % Basophils % Neutrophils # Lymphocytes # Monocytes # Eosinophils # Basophils # Sample Site ABG pH ABG pCO2 ABG pO2 ABG HCO3 ABG Total CO2 ABG O2 Saturation ABG Base Excess Respiration Rate O2 Delivery Device Blood Gas Modality Inspired O2 Tidal Volume PEEP Sodium 133 L Potassium 4.9 Chloride 103 Carbon Dioxide 19 L BUN 23 H Creatinine 1.53 H Est GFR ( Amer) 58 L Est GFR (Non-Af Amer) 48 L BUN/Creatinine Ratio 15 Glucose 157 H POC Glucose 117 H 120 H Calculated Osmolality 283 Lactic Acid Calcium 8.2 L Venous Ioniz Calcium Phosphorus 3.5 Magnesium 1.4 L Total Bilirubin 0.5 Direct Bilirubin 0.0 Indirect Bilirubin 0.5 AST 20 ALT 16 Alkaline Phosphatase 68 Serum Total Protein 5.5 L Albumin 3.1 L Globulin 2.4 Albumin/Globulin Ratio 1.3 Triglycerides 06/03/18 06/04/18 06/04/18 23:22 04:21 05:02 WBC 8.6 RBC 3.53 L Hgb 9.7 L Hct 31.1 L MCV 88.1 MCH 27.5 L MCHC 31.2 L RDW 15.5 H Plt Count 179 MPV 10.3 Immature Gran % 2.4 Seg Neutrophils % 85.4 Lymphocytes % 7.8 Monocytes % 4.1 Eosinophils % 0.1 Basophils % 0.2 Neutrophils # 7.4 Lymphocytes # 0.7 Monocytes # 0.4 Eosinophils # 0.0 Basophils # 0.0 Sample Site R Radial ABG pH 7.33 ABG pCO2 48 H ABG pO2 109 H ABG HCO3 25 ABG Total CO2 27 H ABG O2 Saturation 98 ABG Base Excess -1 Respiration Rate 14 O2 Delivery Device Adult Vent Blood Gas Modality ASSIST CONTROL Inspired O2 30.0 Tidal Volume 500 PEEP 5 Sodium Potassium Chloride Carbon Dioxide BUN Creatinine Est GFR ( Amer) Est GFR (Non-Af Amer) BUN/Creatinine Ratio Glucose POC Glucose 152 H Calculated Osmolality Lactic Acid Calcium Venous Ioniz Calcium Phosphorus Magnesium Total Bilirubin Direct Bilirubin Indirect Bilirubin AST ALT Alkaline Phosphatase Serum Total Protein Albumin Globulin Albumin/Globulin Ratio Triglycerides 06/04/18 06/04/18 06/04/18 05:02 05:02 05:22 WBC RBC Hgb Hct MCV MCH MCHC RDW Plt Count MPV Immature Gran % Seg Neutrophils % Lymphocytes % Monocytes % Eosinophils % Basophils % Neutrophils # Lymphocytes # Monocytes # Eosinophils # Basophils # Sample Site ABG pH ABG pCO2 ABG pO2 ABG HCO3 ABG Total CO2 ABG O2 Saturation ABG Base Excess Respiration Rate O2 Delivery Device Blood Gas Modality Inspired O2 Tidal Volume PEEP Sodium 139 Potassium 4.3 Chloride 107 Carbon Dioxide 26 BUN 18 Creatinine 1.19 Est GFR ( Amer) > 60 Est GFR (Non-Af Amer) > 60 BUN/Creatinine Ratio 15 Glucose 147 H POC Glucose Calculated Osmolality 293 Lactic Acid 1.2 Calcium 8.6 Venous Ioniz Calcium 1.19 Phosphorus 3.4 Magnesium 1.8 Total Bilirubin Direct Bilirubin Indirect Bilirubin AST ALT Alkaline Phosphatase Serum Total Protein Albumin Globulin Albumin/Globulin Ratio Triglycerides 332 H 06/04/18 12:00 WBC RBC Hgb Hct MCV MCH MCHC RDW Plt Count MPV Immature Gran % Seg Neutrophils % Lymphocytes % Monocytes % Eosinophils % Basophils % Neutrophils # Lymphocytes # Monocytes # Eosinophils # Basophils # Sample Site ABG pH ABG pCO2 ABG pO2 ABG HCO3 ABG Total CO2 ABG O2 Saturation ABG Base Excess Respiration Rate O2 Delivery Device Blood Gas Modality Inspired O2 Tidal Volume PEEP Sodium Potassium Chloride Carbon Dioxide BUN Creatinine Est GFR ( Amer) Est GFR (Non-Af Amer) BUN/Creatinine Ratio Glucose POC Glucose Calculated Osmolality Lactic Acid Calcium Venous Ioniz Calcium Phosphorus Magnesium 2.1 Total Bilirubin Direct Bilirubin Indirect Bilirubin AST ALT Alkaline Phosphatase Serum Total Protein Albumin Globulin Albumin/Globulin Ratio Triglycerides Cultures: Cultures 06/02/18 20:12 Body Fluid Culture - Preliminary Peritoneal Fluid Gram Negative Dex 06/04/18 09:12 Blood Culture - Preliminary Peripheral Venipuncture Culture is incubating and being continuously monitored for growth. Final report to follow. 06/04/18 09:10 Blood Culture - Preliminary Peripheral Venipuncture Culture is incubating and being continuously monitored for growth. Final report to follow. - Impressions Impressions Chest X-Ray 06/04/18 04:00 IMPRESSION: 1. Endotracheal tube limited in evaluation approximately 8.3 cm above the bobbi can be advanced approximately 3 cm. 2. Unchanged nasogastric tube terminating at the gastric cardia should be advanced approximately 10 cm. D/ / Carlin Aguila MD / Carlin Aguila MD Interpreting Provider: Carlin Aguila MD Exam - Constitutional Vitals: Temp Pulse Resp BP Pulse Ox 98.8 F 56 14 101/65 99 06/04/18 15:32 06/04/18 15:00 06/04/18 15:00 06/04/18 15:00 06/04/18 15:00 General appearance: cooperative, no acute distress, obese - Head Head exam: Present: atraumatic, normal inspection, normocephalic - Eye Eye exam: Present: normal appearance, PERRL Pupils: Present: normal accommodation - ENT ENT exam: Present: mucous membranes moist - Neck Neck exam: Present: normal inspection - Respiratory Respiratory exam: Present: CTAB. Absent: rales, respiratory distress, rhonchi, wheezes - Cardiovascular Cardiovascular exam: Present: RRR, +S1, +S2 - GI/Abdominal GI/Abdominal exam: Present: distended (Obese), hypoactive bowel sounds, soft, tenderness (Patient grimaces with palpation of the abdomen) Additional comments: SARBJIT drain noted to the left lower abdomen with purulent bilious drainage noted. SARBJIT drain noted to the right lower abdomen with their sanguinous drainage noted. Machado catheter noted to be draining clear yellow urine. NG tube to low intermittent wall suction. Midline abdominal incision with wound VAC dressing intact. Sponge ball compressed. No evidence of leak. 125 mmHg continuous suction. - Extremities Exam Extremities exam: Present: normal inspection. Absent: joint swelling, pedal edema, tenderness - Neurological Exam Neurological exam: Present: altered (Sedated), no focal deficits (Moves all extremities 4 on command) - Skin Skin exam: Present: dry, intact, normal color, warm - Additional findings Additional findings: PICC line noted to the right upper extremity is transparent dressing clean, dry , and intact. TPN is infusing. - VTE Documentation of Mechanical Device: Intermittent pneumatic compression device Consult Discharge Plan - Plan Referrals: Zafar Hinton MD [Primary Care Provider] - - Attending Attestation I examined this patient and my medical decision-making was reviewed with the Resident Physician. I agree with the documented findings, disposition and treatment plan as described except to the extent set forth below.
[2018-06-04] MEDS ORDERED: Clinimix E 5%-15% SOLUTION 2,000 ML with MVI, adult with vitamin K 10 ML IVC SCH (17:00)
--- NOTE | 2018-06-04 20:54 | Anesthesia Evaluation PreOp ---
Date of Encounter: 06/04/18 Time of Encounter: 20:49 - Past History Planned Operation: Exp. Lap. Gastrostomy Cardiac History: HTN, Hyperlipidemia Other Medical History: Renal (stones), Diabetes Type II Anesthesia History: No Prior Anesthetic Complications, Past Anesthesia (Exp. Lap. 06/02/2018, hernia, [place]. [place]) Alcohol Use: none Drug use: none Medications and Allergies Aspirin 81 mg PO DAILY 10/14/16 [History] Metformin HCl [Glucophage] 1,000 mg PO BID 10/14/16 [History] Triamterene/HCTZ 37.5/25mg [Dyazide] 1 tab PO DAILY 10/15/16 [History] Losartan Potassium [Cozaar] 100 mg PO DAILY 04/04/18 [History] hydrALAZINE [HydrALAZINE] 25 mg PO BID 04/04/18 [History] Metoprolol [Lopressor] 75 mg PO BID 30 Days #60 tablet 04/24/18 [Rx] Omeprazole [PriLOSEC] 20 mg PO BIDAC 30 Days #60 capsule.dr 04/24/18 [Rx] Amoxicillin/Clavulanate [Augmentin] 875 mg PO BIDWM 13 Days #26 tablet 04/25/18 [Rx] Fluconazole [Diflucan] 200 mg PO DAILY 13 Days #13 tab 05/01/18 [Rx] Linezolid [Zyvox] 600 mg PO BID 13 Days #26 tablet 05/01/18 [Rx] Metoclopramide [Reglan] 5 mg PO Q6HR #28 ud.liq 05/01/18 [Rx] Ondansetron ODT [Zofran ODT] 8 mg SL Q8HR #30 tab.rapdis 05/01/18 [Rx] 3 Allergy/AdvReac Type Severity Reaction Status Date / Time ciprofloxacin [From Cipro] Allergy Swelling Verified 06/02/18 13:16 of Lip/Tongue/Throat azithromycin AdvReac Vomiting Verified 06/02/18 13:16 codeine AdvReac Vomiting Verified 06/02/18 13:16 - Meds/Allergy Pre-op Review Medications Reviewed: Yes Allergies Reviewed: Yes Beta Blockers on Current Med List: Yes (labetalol PRN) Anesthesia Results - Labs 06/04/18 05:02 06/04/18 05:02 - Imaging EKG: report reviewed (SR) Anesthesia Exam Vital Signs/O2 Sat, Most Current Temp Pulse Resp BP Pulse Ox 100.1 F H 58 14 122/78 96 06/04/18 19:30 06/04/18 20:00 06/04/18 21:46 06/04/18 21:46 06/04/18 21:46 NPO (# of Hours): > 8 hrs Pain Scale: 0 Pain Scale Used: Numeric (1 - 10) - HEENT Pupil (Motor): Pupils equal, EOMI Mallampati: Intubated (easily intubated with glidescope per 03/2018 and 05/2018 anesthesia record)) Teeth: Normal Oral Opening: Greater than 3 - PARAKEET RAISER LOC: Oriented PARAKEET RAISER Motor: Normal RUE, Normal LUE, Normal RLE, Normal LLE, Normal Face PARAKEET RAISER Sensory: Normal: RUE, LUE, RLE, LLE, Face - Cardiac Rhythm: Regular Murmur: None JVD: No Carotid Bruit: No - Pulmonary Breath Sounds: bilateral Clear Respiratory Effort: Symmetrical Anesthesia Assess/Plan ASA Score: 4 Modified Piru Scale for Level of Consciousness: Cooperative, oriented, and tranquil Anesthetic Plan: General Autologous Blood: Yes Monitoring Plan: Standard Monitors Recovery Plan: PACU
[2018-06-05] MEDS: Piperacillin/Tazobactam 3.375 GM in 0.9 % Sodium Chloride Mini Bag 100 ML IVPB SCH ×3 (00:48→23:24)
[2018-06-05] MEDS: Insulin LISPRO 300 UNITS/3 ML VIAL SQ SCH ×5 (00:48→23:33)
[2018-06-05] MEDS: Artificial Tears SOLN 15 ML BOTTLE BOTH EYES SCH ×6 (00:49→22:54)
[2018-06-05] MEDS: FentaNYL (PF) 1,000 MCG in 0.9 % Sodium Chloride 80 ML IVC SCH ×5 (02:44→22:55)
[2018-06-05 04:51] LABS: ABG Base Excess -1 mEq/L (-2 to 3); ABG HCO3 25 mEq/L (21-27); ABG Oxygen Saturation 97 % (95-98); ABG PCO2 45 mmHg (35-45); ABG PH 7.35 pH Units (7.32-7.45); ABG PO2 92 mmHg (85-104); ABG TCO2 26 mEq/L (20-26); Blood Gas Modality ASSIST CONTROL; Blood Gas PEEP 5 cm H2O; Blood Gas Respiration Rate 14; Blood Gas VT 500 cc
[2018-06-05 05:06] LABS: Basophils # 0.1 K/mcL (0.0-0.2); Basophils % 0.7 %; Eosinophils # 0.1 K/mcL (0.0-0.6); Eosinophils % 1.1 %; Hematocrit 30.1 % (37.5-50.1); Hemoglobin 9.2 g/dL (12.9-16.9); Immature Granulocytes % 5.2 % (0-4); Lymphocytes # 1.1 K/mcL (0.6-4.6); Lymphocytes % 14.4 %; Mean Corpuscular HGB Conc 30.6 g/dL (31.6-35.5); Mean Corpuscular Hemoglobin 26.8 pg (28.0-33.3); Mean Corpuscular Volume 87.8 fL (83.0-100.0); Mean Platelet Volume 9.5 fL (9.4-12.4); Monocytes # 0.4 K/mcL (0.0-1.3); Monocytes % 4.8 %; Neutrophils # 5.6 K/mcL (1.6-8.9); Platelet Count 169 K/mcL (140-400); Red Blood Count 3.43 M/mcL (4.19-5.50); Red Cell Distribution Width 15.4 % (11.5-14.5); Segmented Neutrophils % 73.8 %
[2018-06-05 05:55] LABS: Platelet Estimate Normal (Normal)
--- NOTE | 2018-06-05 06:36 | Pulmonology Progress Note ---
<NakulKota verdugo W - Last Filed: 06/05/18 08:02> Date of Encounter: 06/05/18 Objective PUL Vital signs: Last Vital Signs Temp 98.5 F 06/05/18 04:32 Pulse 56 06/05/18 07:00 Resp 16 06/05/18 07:42 BP 137/80 06/05/18 07:00 Pulse Ox 97 06/05/18 07:42 Ventilator Settings Ventilator Settings: Ventilator Settings, Last 8 Hours Ventilator Tidal Volume 500 Setting Ventilator Tidal Volume 500 Setting Ventilator Tidal Volume 500 Setting Ventilator Tidal Volume 500 Setting Ventilator Tidal Volume 500 Setting Ventilator Tidal Volume 500 Setting Ventilator Tidal Volume 500 Setting Ventilator Tidal Volume 500 Setting Ventilator Tidal Volume 500 Setting Ventilator Tidal Volume 500 Setting Ventilator Tidal Volume 500 Setting Ventilator Tidal Volume 500 Setting Ventilator Tidal Volume 500 Setting Ventilator Respiratory Rate 14 Setting Ventilator Respiratory Rate 14 Setting Ventilator Respiratory Rate 14 Setting Ventilator Respiratory Rate 14 Setting Ventilator Respiratory Rate 14 Setting Ventilator Respiratory Rate 14 Setting Ventilator Respiratory Rate 14 Setting Ventilator Respiratory Rate 14 Setting Ventilator Respiratory Rate 14 Setting Ventilator Respiratory Rate 14 Setting Ventilator Respiratory Rate 14 Setting Ventilator Respiratory Rate 14 Setting Ventilator Respiratory Rate 14 Setting Actual Respiratory Rate 16 Actual Respiratory Rate 14 Actual Respiratory Rate 15 Actual Respiratory Rate 14 Actual Respiratory Rate 14 Actual Respiratory Rate 14 Actual Respiratory Rate 14 Actual Respiratory Rate 14 Actual Respiratory Rate 14 Actual Respiratory Rate 14 Actual Respiratory Rate 14 Actual Respiratory Rate 14 Positive End Expiratory 5 Pressure Positive End Expiratory 5 Pressure Positive End Expiratory 5 Pressure Positive End Expiratory 5 Pressure Positive End Expiratory 5 Pressure Positive End Expiratory 5 Pressure Positive End Expiratory 5 Pressure Positive End Expiratory 5 Pressure Positive End Expiratory 5 Pressure Positive End Expiratory 5 Pressure Positive End Expiratory 5 Pressure Positive End Expiratory 5 Pressure Positive End Expiratory 5 Pressure Peak Inspiratory Airway 21 Pressure Peak Inspiratory Airway 21 Pressure Peak Inspiratory Airway 21 Pressure Peak Inspiratory Airway 20 Pressure Peak Inspiratory Airway 22 Pressure Peak Inspiratory Airway 23 Pressure Peak Inspiratory Airway 22 Pressure Peak Inspiratory Airway 22 Pressure Peak Inspiratory Airway 18 Pressure Peak Inspiratory Airway 21 Pressure Peak Inspiratory Airway 20 Pressure Results - Laboratory Findings CBC and BMP: 06/05/18 04:50 06/04/18 05:02 ABG ABG pH 7.35 pH Units (7.32-7.45) 06/05/18 04:46 ABG pCO2 45 mmHg (35-45) 06/05/18 04:46 ABG pO2 92 mmHg (85-104) 06/05/18 04:46 ABG O2 Saturation 97 % (95-98) 06/05/18 04:46 PT/INR, D-dimer PT 12.9 Seconds (9.4-12.1) H 06/02/18 17:29 Abnormal lab findings: Abnormal lab results RBC 3.43 M/mcL (4.19-5.50) L 06/05/18 04:50 Hgb 9.2 g/dL (12.9-16.9) L 06/05/18 04:50 Hct 30.1 % (37.5-50.1) L 06/05/18 04:50 MCH 26.8 pg (28.0-33.3) L 06/05/18 04:50 MCHC 30.6 g/dL (31.6-35.5) L 06/05/18 04:50 RDW 15.4 % (11.5-14.5) H 06/05/18 04:50 Immature Gran % 5.2 % (0-4) H 06/05/18 04:50 PT 12.9 Seconds (9.4-12.1) H 06/02/18 17:29 Glucose 147 mg/dL (70-105) H 06/04/18 05:02 POC Glucose 155 mg/dL (70-99) H 06/04/18 23:27 Creatine Kinase 11 Units/L (30-223) L 06/02/18 17:29 Serum Total Protein 5.5 g/dL (6.4-8.9) L 06/03/18 04:46 Albumin 3.1 g/dL (3.5-5.7) L 06/03/18 04:46 Triglycerides 332 mg/dL (< 150) H 06/04/18 05:02 Urine Clarity Cloudy (Clear) A 06/02/18 09:18 Urine Protein 100 mg/dL (Neg-Trace) H 06/02/18 09:18 Urine Blood Large (Negative) H 06/02/18 09:18 Ur Leukocyte Esterase Moderate (Negative) H 06/02/18 09:18 Urine Microscopic RBC TNTC per hpf (0-3) H 06/02/18 09:18 Urine Microscopic WBC 15-30 per hpf (0-3) H 06/02/18 09:18 Ur Squamous Epith Cells Many per lpf (None-Few) H 06/02/18 09:18 Ur Culture Indicated? NO. (NO) A 06/02/18 09:18 Enterobacteriac sp PCR DETECTED (Not Detect) A 06/02/18 09:18 E. coli (PCR) DETECTED (Not Detect) A 06/02/18 09:18 - Microbiology Findings Microbiology Findings: Microbiology, Last 48 Hours 06/02/18 20:12 Body Fluid Culture - Preliminary Peritoneal Fluid Gram Negative Dex 06/04/18 09:12 Blood Culture - Preliminary Peripheral Venipuncture Culture is incubating and being continuously monitored for growth. Final report to follow. 06/04/18 09:10 Blood Culture - Preliminary Peripheral Venipuncture Culture is incubating and being continuously monitored for growth. Final report to follow. - Clinical Findings Intake & Output: Intake & Output 06/04/18 06/05/18 06/05/18 23:59 07:59 15:59 Intake Total 2050 / 2050 400 / 400 Output Total 555 / 555 1010 / 1010 Balance 1495 / 1495 -610 / -610 Weight 107.6 kg Consult Discharge Plan - Plan Referrals: Zafar Hinton MD [Primary Care Provider] - - Attending Attestation I examined this patient and my medical decision-making was reviewed with the Resident Physician. I agree with the documented findings, disposition and treatment plan as described except to the extent set forth below. We independently had [id number] contact with the patient Patient seen and examined at bedside Labs, radiology, chart personally reviewed. Management was reviewed during multidisciplinary critical care rounds. 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 ID: Continue treatment for Escherichia coli bacteremia infectious disease following Heme/Onc: DVT prophylaxis given Endo: Glucose Monitored Integ/MSK: Skin Care per routine ICU Nursing Protocol to prevent ulcers. Lines: All lines examined without evidence of infection : Dispo: Remain in ICU CODE: Full <Nathaniel Kumar - Last Filed: 06/05/18 10:51> Date of Encounter: 06/05/18 Time of Encounter: 06:35 Assessment and Plan (1) Severe sepsis Current Visit: Yes Status: Acute Likely 2/2 intraabdominal abscess with purulent fluid collections. Remains intubated and sedated with propofol and fentanyl. ABG improved today. Ph 7.35, paco2 45, po2 92 on 30% fio2. He is negative on I/O's and will balance fluid status with bolus as needed to match output. His pressures have been stable and not requiring pressors. Tachycardia improved with pain control. He is afebrile ( tmax last night 100.1) and leukocytosis down to 7.6. Lactic acid down from high of 5.1 to 1.2 today. Prelim blood culture pos for E coli. Sensitive to pip/tazo which he is on, resistant to ampicillin, amp/sulbactam. Abdominal fluid culture pos for gram neg dex, likely E coli also, no sensitivities yet. Will continue zosyn and diflucan for now as E coli sensitive. ID on board and recommends continue current treatment, will deescalate as allowed. Gen surg plan to return to OR for continued exploration today. (2) Bacteremia due to Gram-negative bacteria Current Visit: Yes Status: Acute Prelim blood culture pos for E coli 1/2 via PCR, sensitive to pip/tazo which he is on, resistant to ampicillin, amp/sulbactam. ID on board. Will continue current abx, deescalate as allowed and repeat blood cultures not resulted. (3) Acute on chronic renal failure Current Visit: Yes Status: Acute Cr down from 1.99 to 0.71 today. Received 5L IVF day of admission. He is neg on fluids today and will match output with fluid bolus. Will monitor and replace electrolytes as needed. Qualifiers: Acute renal failure type: unspecified Chronic kidney disease stage: unspecified stage Qualified Code(s): N17.9 - Acute kidney failure, unspecified ; N18.9 - Chronic kidney disease, unspecified (4) Perforated viscus Current Visit: No Status: Acute S/p exlap, washout. Gen surg following and plan to take back to OR for continued exploration today. (5) Lactic acidosis Current Visit: Yes Status: Acute Improving from high of 5.1 down to 1.2 yesterday. (6) Diabetes Current Visit: No Status: Chronic Hx of DM. NPO with SSI and acuchecks q6h. Qualifiers: Diabetes mellitus type: type 2 Diabetes mellitus box spinner insulin use: without box spinner use Diabetes mellitus complication status: with hyperglycemia Qualified Code(s): E11.65 - Type 2 diabetes mellitus with hyperglycemia (7) VRE (vancomycin-resistant Enterococci) Current Visit: No Status: Acute Hx of VRE in urine. Treated with outpatient abx with ID. (8) DVT prophylaxis Current Visit: No Status: Acute Mechanical prophylaxis Subjective Principal diagnosis: Severe sepsis Interval history: Nothing acute overnight. Intubated on vent. Indicates he is without pain. Abdominal incision open and on wound vac. Will open eyes and move hands, feet when asked. Objective PUL Vital signs: Last Vital Signs Temp 98.5 F 06/05/18 04:32 Pulse 56 06/05/18 06:29 Resp 15 06/05/18 06:29 BP 126/77 06/05/18 06:29 Pulse Ox 97 06/05/18 06:29 General appearance: no acute distress, asleep (Easily arousable to voice. ), other (Intubated and sedated on vent ) Eyes: nonicteric ENT: oropharynx moist Auscultation: bilateral: clear Cardiovascular: regular rate and rhythm Gastrointestinal: soft, non-tender, other (Open abdominal incision on wound vac. No erythema, purulent drainage, or increased temp. ) Extremities: no cyanosis, no edema other (Intubated and sedated. Will answer yes/no questions with shaking head, follows commands, will job analyst and move feet equal and symmetricaly) Ventilator Settings Ventilator Settings: Ventilator Settings, Last 8 Hours Ventilator Tidal Volume 500 Setting Ventilator Tidal Volume 500 Setting Ventilator Tidal Volume 500 Setting Ventilator Tidal Volume 500 Setting Ventilator Tidal Volume 500 Setting Ventilator Tidal Volume 500 Setting Ventilator Tidal Volume 500 Setting Ventilator Tidal Volume 500 Setting Ventilator Tidal Volume 500 Setting Ventilator Tidal Volume 500 Setting Ventilator Tidal Volume 500 Setting Ventilator Tidal Volume 500 Setting Ventilator Tidal Volume 500 Setting Ventilator Respiratory Rate 14 Setting Ventilator Respiratory Rate 14 Setting Ventilator Respiratory Rate 14 Setting Ventilator Respiratory Rate 14 Setting Ventilator Respiratory Rate 14 Setting Ventilator Respiratory Rate 14 Setting Ventilator Respiratory Rate 14 Setting Ventilator Respiratory Rate 14 Setting Ventilator Respiratory Rate 14 Setting Ventilator Respiratory Rate 14 Setting Ventilator Respiratory Rate 14 Setting Ventilator Respiratory Rate 14 Setting Ventilator Respiratory Rate 14 Setting Actual Respiratory Rate 15 Actual Respiratory Rate 14 Actual Respiratory Rate 14 Actual Respiratory Rate 14 Actual Respiratory Rate 14 Actual Respiratory Rate 14 Actual Respiratory Rate 14 Actual Respiratory Rate 14 Actual Respiratory Rate 14 Actual Respiratory Rate 14 Actual Respiratory Rate 14 Actual Respiratory Rate 14 Positive End Expiratory 5 Pressure Positive End Expiratory 5 Pressure Positive End Expiratory 5 Pressure Positive End Expiratory 5 Pressure Positive End Expiratory 5 Pressure Positive End Expiratory 5 Pressure Positive End Expiratory 5 Pressure Positive End Expiratory 5 Pressure Positive End Expiratory 5 Pressure Positive End Expiratory 5 Pressure Positive End Expiratory 5 Pressure Positive End Expiratory 5 Pressure Positive End Expiratory 5 Pressure Peak Inspiratory Airway 21 Pressure Peak Inspiratory Airway 20 Pressure Peak Inspiratory Airway 22 Pressure Peak Inspiratory Airway 23 Pressure Peak Inspiratory Airway 22 Pressure Peak Inspiratory Airway 22 Pressure Peak Inspiratory Airway 18 Pressure Peak Inspiratory Airway 21 Pressure Peak Inspiratory Airway 20 Pressure Peak Inspiratory Airway 19 Pressure Results - Laboratory Findings CBC and BMP: 06/05/18 04:50 06/05/18 04:50 ABG ABG pH 7.35 pH Units (7.32-7.45) 06/05/18 04:46 ABG pCO2 45 mmHg (35-45) 06/05/18 04:46 ABG pO2 92 mmHg (85-104) 06/05/18 04:46 ABG O2 Saturation 97 % (95-98) 06/05/18 04:46 PT/INR, D-dimer PT 12.9 Seconds (9.4-12.1) H 06/02/18 17:29 Abnormal lab findings: Abnormal lab results RBC 3.43 M/mcL (4.19-5.50) L 06/05/18 04:50 Hgb 9.2 g/dL (12.9-16.9) L 06/05/18 04:50 Hct 30.1 % (37.5-50.1) L 06/05/18 04:50 MCH 26.8 pg (28.0-33.3) L 06/05/18 04:50 MCHC 30.6 g/dL (31.6-35.5) L 06/05/18 04:50 RDW 15.4 % (11.5-14.5) H 06/05/18 04:50 Immature Gran % 5.2 % (0-4) H 06/05/18 04:50 PT 12.9 Seconds (9.4-12.1) H 06/02/18 17:29 Glucose 147 mg/dL (70-105) H 06/04/18 05:02 POC Glucose 155 mg/dL (70-99) H 06/04/18 23:27 Creatine Kinase 11 Units/L (30-223) L 06/02/18 17:29 Serum Total Protein 5.5 g/dL (6.4-8.9) L 06/03/18 04:46 Albumin 3.1 g/dL (3.5-5.7) L 06/03/18 04:46 Triglycerides 332 mg/dL (< 150) H 06/04/18 05:02 Urine Clarity Cloudy (Clear) A 06/02/18 09:18 Urine Protein 100 mg/dL (Neg-Trace) H 06/02/18 09:18 Urine Blood Large (Negative) H 06/02/18 09:18 Ur Leukocyte Esterase Moderate (Negative) H 06/02/18 09:18 Urine Microscopic RBC TNTC per hpf (0-3) H 06/02/18 09:18 Urine Microscopic WBC 15-30 per hpf (0-3) H 06/02/18 09:18 Ur Squamous Epith Cells Many per lpf (None-Few) H 06/02/18 09:18 Ur Culture Indicated? NO. (NO) A 06/02/18 09:18 Enterobacteriac sp PCR DETECTED (Not Detect) A 06/02/18 09:18 E. coli (PCR) DETECTED (Not Detect) A 06/02/18 09:18 - Microbiology Findings Microbiology Findings: Microbiology, Last 48 Hours 06/02/18 20:12 Body Fluid Culture - Preliminary Peritoneal Fluid Gram Negative Dex 06/04/18 09:12 Blood Culture - Preliminary Peripheral Venipuncture Culture is incubating and being continuously monitored for growth. Final report to follow. 06/04/18 09:10 Blood Culture - Preliminary Peripheral Venipuncture Culture is incubating and being continuously monitored for growth. Final report to follow. - Clinical Findings Intake & Output: Intake & Output 06/04/18 06/04/18 06/05/18 15:59 23:59 07:59 Intake Total 704 / 704 2050 / 2050 400 / 400 Output Total 940 / 940 555 / 555 1010 / 1010 Balance -236 / -236 1495 / 1495 -610 / -610 Weight 106.9 kg 107.6 kg - VTE Documentation of Mechanical Device: Intermittent pneumatic compression device
[2018-06-05 08:09] LABS: BUN/Creatinine Ratio 20 (6-26); Blood Urea Nitrogen 14 mg/dL (6-20); Calcium 6.4 mg/dL (8.6-10.3); Carbon Dioxide 20 mEq/L (23-29); Chloride 116 mEq/L (98-107); Glucose 110 mg/dL (70-105); Magnesium 1.2 mg/dL (1.6-2.6); Osmolality,Calculated 297 (280-300); Phosphorous 2.6 mg/dL (2.7-4.5); Potassium 3.3 mEq/L (3.5-5.1); Sodium 143 mEq/L (136-145); eGFR For Non-African Americans > 60 (> 60)
[2018-06-05] MEDS: Chlorhexidine Rinse 15 ML MOUTHWASH MM SCH ×2 (10:08→20:28)
[2018-06-05] MEDS: Pantoprazole 40 MG VIAL IVP SCH (10:08)
[2018-06-05] MEDS: Fluconazole 200 MG/100 ML 200 MG/100 ML BAG IVPB SCH (10:09)
--- NOTE | 2018-06-05 11:02 | General Surgery Progress Note ---
Date of Encounter: 06/05/18 Time of Encounter: 11:00 - Assessment and Plan (1) Peritonitis Current Visit: Yes Status: Acute 52M admitted with recurrence of perforated ulcer after evie patch POD #3 s/p ex lap with drainage of intraabdominal abscess; intubated, on TPN, no pressors; open abdomen; OR today Subjective Patient reports: afebrile, other (no acute events overnight) Objective Vital Signs - Last 8 Hours Temp Pulse Resp BP Pulse Ox 06/05/18 10:03 14 98 06/05/18 10:00 53 14 108/73 98 06/05/18 09:00 68 14 142/85 99 06/05/18 08:00 98.4 F 60 14 102/67 98 06/05/18 07:42 16 97 06/05/18 07:00 56 14 137/80 97 06/05/18 06:29 56 15 126/77 97 06/05/18 05:05 14 127/78 96 06/05/18 05:01 52 14 127/78 96 06/05/18 04:32 98.5 F 06/05/18 04:29 55 06/05/18 04:00 55 14 109/74 97 06/05/18 03:44 14 107/75 97 06/05/18 03:00 55 14 107/75 98 Intake and Output 06/04/18 06/05/18 06/05/18 23:59 07:59 15:59 Intake Total 2049 500 / 500 100 / 100 Output Total 555 / 555 1010 / 1010 445 / 445 Balance 1495 / 1495 -510 / -510 -345 / -345 Intake: IV Fluids 2049 500 / 500 100 / 100 FentaNYL (PF) 1,000 MCG In 0.9 100 / 100 200 / 200 % Sodium Chloride 80 ML @ 50 MCG/HR 5 mls/hr IVC CONT [place] Rx #:[id number] Clinimix E 5%-15% SOLUTION 2, 1150 / 1150 000 ML @ 50 mls/hr IVC .Q24H [place] with M.v.i. Adult 10 ml Rx# :[id number] Diprivan 1,000 mg In 100 ml @ 200 / 200 200 / 200 100 / 100 10 MCG/KG/MIN 6.26 mls/hr IVC . [id number] [place] Rx#:[id number] Zosyn 3.375 GM In 0.9 % Sodium 100 / 100 100 / 100 Chloride (Mini-Bag +) 100 ML @ 25 mls/hr IVPB Q8HR [facility] Rx#: [id number] Oral 0 / 0 Tube Feeding 0 / 0 Free Water 0 / 0 Output: Catheter 500 / 500 900 / 900 425 / 425 Wound Drainage 55 / 55 110 / 110 20 / 20 Abdomen 25 / 25 50 / 50 Left Abdomen 20 / 20 40 / 40 10 / 10 Right Abdomen 10 / 20 / 20 10 / 10 Other: # Bowel Movements 0 Weight 107.6 kg Blood Glucose* 148 Patient Weight 06/05/18 23:59 Weight 107.6 kg - General physical appearance no distress - Respiratory other (intubated; bilateral breath sounds) - Cardiovascular Cardiovascular exam: Present: RRR - Abdomen Abdomen: Present: soft (non distended) - Incision Incision: Present: open (open abdomen with abthera dressing) - Labs 06/05/18 04:50 06/05/18 04:50 Diabetes panel 06/05/18 Range/Units 04:50 Sodium 143 (136-145) mEq/L Potassium 3.3 L (3.5-5.1) mEq/L Chloride 116 H (98-107) mEq/L Carbon Dioxide 20 L (23-29) mEq/L BUN 14 (6-20) mg/dL Creatinine 0.71 (0.70-1.30) mg/dL Glucose 110 H (70-105) mg/dL Calcium 6.4 L (8.6-10.3) mg/dL Calcium panel 06/05/18 Range/Units 04:50 Calcium 6.4 L (8.6-10.3) mg/dL Phosphorus 2.6 L (2.7-4.5) mg/dL Pituitary panel 06/05/18 Range/Units 04:50 Sodium 143 (136-145) mEq/L Potassium 3.3 L (3.5-5.1) mEq/L Chloride 116 H (98-107) mEq/L Carbon Dioxide 20 L (23-29) mEq/L BUN 14 (6-20) mg/dL Creatinine 0.71 (0.70-1.30) mg/dL Glucose 110 H (70-105) mg/dL Calcium 6.4 L (8.6-10.3) mg/dL Adrenal panel 06/05/18 Range/Units 04:50 Sodium 143 (136-145) mEq/L Potassium 3.3 L (3.5-5.1) mEq/L Chloride 116 H (98-107) mEq/L Carbon Dioxide 20 L (23-29) mEq/L BUN 14 (6-20) mg/dL Creatinine 0.71 (0.70-1.30) mg/dL Glucose 110 H (70-105) mg/dL Calcium 6.4 L (8.6-10.3) mg/dL - VTE Documentation of Mechanical Device: Intermittent pneumatic compression device Consult Discharge Plan - Plan Referrals: Zafar Hinton MD [Primary Care Provider] -
[2018-06-05] MEDS ORDERED: CefOXitin 1,000 MG VIAL ONE (14:10)
[2018-06-05] MEDS ORDERED: *HR* Propofol 200 MG/20 ML VIAL IVP ONE (14:21)
[2018-06-05] MEDS ORDERED: *HR* Rocuronium Bromide 50 MG/5 ML VIAL ONE (14:21)
[2018-06-05] MEDS ORDERED: *HR* Midazolam HCl 2 MG/2 ML VIAL ONE ×3 (14:21→17:57)
[2018-06-05] MEDS ORDERED: Lidocaine -MPF 2% 2 ML VIAL ONE (14:21)
[2018-06-05] MEDS ORDERED: *HR* FentaNYL (PF) 100 MCG/2 ML VIAL ONE ×4 (14:21→17:57)
[2018-06-05] MEDS ORDERED: Esmolol 100 MG/10 ML VIAL IVP ONE (16:12)
[2018-06-05] MEDS ORDERED: *HR* Metoprolol 5 MG/5 ML VIAL IVP ONE ×2 (16:19→17:48)
[2018-06-05] MEDS ORDERED: *HR* Magnesium Sulfate 1 GM/2 ML VIAL ONE (16:23)
[2018-06-05] MEDS ORDERED: Clinimix E 5%-15% SOLUTION 2,000 ML with MVI, adult with vitamin K 10 ML IVC SCH ×2 (17:00→18:50)
--- NOTE | 2018-06-05 17:01 | Infectious Disease Progress No ---
Date of Encounter: 06/05/18 Time of Encounter: 09:45 - Assessment and Plan (1) Severe sepsis Current Visit: Yes Status: Acute The patient had 3 sepsis criteria on admission. Likely secondary to bacteremia and intra-abdominal abscess. Improved. Tachycardia and tachypnea and leukocytosis have resolved. Blood cultures obtained 06/02/18 her +1 out of 2 sets for Escherichia coli per PCR. Repeat blood cultures drawn 06/04/18 are NGTD 2 sets. (2) Bacteremia due to Gram-negative bacteria Current Visit: Yes Status: Acute Causative organism: Escherichia coli per PCR. Source likely intra-abdominal abscess. Blood cultures obtained 06/02/18 are +1 out of 2 sets for Escherichia coli per PCR. Repeat blood cultures 06/04/18 are NGTD 2 sets. Continue Zosyn 3.375 g IV every 8 hours. Duration of treatment depends on the clinical picture. Monitor renal function and a productive toxicity and dose adjust antibiotics. (3) Intra-abdominal abscess Current Visit: No Status: Acute Likely secondary to perforated viscus. Causative organism E. coli. Status post exploratory laparotomy, drainage of intra-abdominal abscess. 06/02/[address] Maria. Operative note was reviewed. Gross purulence noted and dropped, but no succus, bile, or staining was seen in the abdominal cavity. Gen. surgery team is planning for a second look in the operating room again later today. Continue Zosyn 3.375 g IV every 8 hours for now. Continue fluconazole 200mg IV daily. Dose-adjust antibiotics based on creatinine clearance. Duration of treatment depends on the clinical picture. Wound care and activity restrictions per the surgery team. (4) Perforated abdominal viscus Current Visit: No Status: Acute Initially was thought to likely be secondary to NSAID use. Concern that this perforation may be secondary to the patch they placed previously was laying under pocket of pus which kept irritating it and cause perforation again. Continue Zosyn as stated above. Continue fluconazole 200 mg IV daily. Further surgical intervention to be determined by the surgery team. (5) Acute on chronic renal failure Current Visit: Yes Status: Resolved Likely secondary to severe sepsis. Improved. Continue to trend. Dose adjust antibiotics based on creatinine clearance. Avoid nephrotoxins as able. Qualifiers: Acute renal failure type: unspecified Chronic kidney disease stage: unspecified stage Qualified Code(s): N17.9 - Acute kidney failure, unspecified ; N18.9 - Chronic kidney disease, unspecified (6) Pneumoperitoneum Current Visit: Yes Status: Acute Secondary to perforated viscus. Further management per the general surgery team. (7) Allergy to multiple antibiotics Current Visit: Yes Status: Acute (8) VRE (vancomycin-resistant Enterococci) Current Visit: No Status: Acute Patient has a history of VRE in the urine. Continue contact precautions per hospital protocol. - Subjective Interval history: Patient seen and examined. No acute events noted overnight. Patient currently intubated and sedated on the ventilator. He does open his eyes and follows some commands. He is unable to provide me with any review of systems information other than shaking his head "no" when asked if he is in pain. Per nursing, the patient is scheduled to go back to the operating room today. No new issues per nursing. Infect Dis PN-Objective Data - Labs CBC & Chem 7: 06/05/18 04:50 06/05/18 04:50 Labs: Laboratory Results - last 24 hr 06/04/18 06/04/18 06/04/18 05:12 11:34 15:25 WBC RBC Hgb Hct MCV MCH MCHC RDW Plt Count MPV Immature Gran % Seg Neutrophils % Lymphocytes % Monocytes % Eosinophils % Basophils % Neutrophils # Lymphocytes # Monocytes # Eosinophils # Basophils # Platelet Estimate Sample Site ABG pH ABG pCO2 ABG pO2 ABG HCO3 ABG Total CO2 ABG O2 Saturation ABG Base Excess Jaun Test Respiration Rate O2 Delivery Device Blood Gas Modality Inspired O2 Tidal Volume PEEP Sodium Potassium Chloride Carbon Dioxide BUN Creatinine Est GFR ( Amer) Est GFR (Non-Af Amer) BUN/Creatinine Ratio Glucose POC Glucose 140 H 132 H 123 H Calculated Osmolality Calcium Phosphorus Magnesium Blood Type Antibody Screen 06/04/18 06/05/18 06/05/18 23:27 04:46 04:50 WBC 7.6 RBC 3.43 L Hgb 9.2 L Hct 30.1 L MCV 87.8 MCH 26.8 L MCHC 30.6 L RDW 15.4 H Plt Count 169 MPV 9.5 Immature Gran % 5.2 H Seg Neutrophils % 73.8 Lymphocytes % 14.4 Monocytes % 4.8 Eosinophils % 1.1 Basophils % 0.7 Neutrophils # 5.6 Lymphocytes # 1.1 Monocytes # 0.4 Eosinophils # 0.1 Basophils # 0.1 Platelet Estimate Normal Sample Site R Radial ABG pH 7.35 ABG pCO2 45 ABG pO2 92 ABG HCO3 25 ABG Total CO2 26 ABG O2 Saturation 97 ABG Base Excess -1 Jaun Test N/A Respiration Rate 14 O2 Delivery Device Adult Vent Blood Gas Modality ASSIST CONTROL Inspired O2 30.0 Tidal Volume 500 PEEP 5 Sodium Potassium Chloride Carbon Dioxide BUN Creatinine Est GFR ( Amer) Est GFR (Non-Af Amer) BUN/Creatinine Ratio Glucose POC Glucose 155 H Calculated Osmolality Calcium Phosphorus Magnesium Blood Type Antibody Screen 06/05/18 06/05/18 04:50 15:50 WBC RBC Hgb Hct MCV MCH MCHC RDW Plt Count MPV Immature Gran % Seg Neutrophils % Lymphocytes % Monocytes % Eosinophils % Basophils % Neutrophils # Lymphocytes # Monocytes # Eosinophils # Basophils # Platelet Estimate Sample Site ABG pH ABG pCO2 ABG pO2 ABG HCO3 ABG Total CO2 ABG O2 Saturation ABG Base Excess Jaun Test Respiration Rate O2 Delivery Device Blood Gas Modality Inspired O2 Tidal Volume PEEP Sodium 143 Potassium 3.3 L Chloride 116 H Carbon Dioxide 20 L BUN 14 Creatinine 0.71 Est GFR ( Amer) > 60 Est GFR (Non-Af Amer) > 60 BUN/Creatinine Ratio 20 Glucose 110 H POC Glucose Calculated Osmolality 297 Calcium 6.4 L Phosphorus 2.6 L Magnesium 1.2 L Blood Type O POSITIVE Antibody Screen NEGATIVE Cultures: Cultures 06/02/18 20:12 Anaerobic Culture - Preliminary Peritoneal Fluid At this time, no anaerobic growth is present. The culture will be finalized after 5 days of incubation. 06/02/18 20:12 Body Fluid Culture - Final Peritoneal Fluid Escherichia coli 06/04/18 09:12 Blood Culture - Preliminary Peripheral Venipuncture Culture is incubating and being continuously monitored for growth. Final report to follow. 06/04/18 09:10 Blood Culture - Preliminary Peripheral Venipuncture Culture is incubating and being continuously monitored for growth. Final report to follow. - Impressions Impressions Chest X-Ray 06/05/18 04:00 IMPRESSION: 1. The nasogastric tube proximal side port is in the distal esophagus. Further advancement is recommended prior to use. 2. ET tube 8.5 cm above the bobbi. 3. Low lung volumes. No acute cardiopulmonary disease. D/ / Grey Jaeger MD / Grey Jaeger MD Interpreting Provider: Grey Jaeger MD Exam - Constitutional Vitals: Temp Pulse Resp BP Pulse Ox 98.7 F 53 14 129/78 98 06/05/18 12:00 06/05/18 14:00 06/05/18 14:00 06/05/18 14:00 06/05/18 14:00 General appearance: cooperative, no acute distress, obese - Head Head exam: Present: atraumatic, normal inspection, normocephalic - Eye Eye exam: Present: normal appearance, PERRL Pupils: Present: normal accommodation - ENT ENT exam: Present: mucous membranes moist - Neck Neck exam: Present: normal inspection - Respiratory Respiratory exam: Present: CTAB. Absent: rales, respiratory distress, rhonchi, wheezes - Cardiovascular Cardiovascular exam: Present: RRR, +S1, +S2 - GI/Abdominal GI/Abdominal exam: Present: distended (obese), hypoactive bowel sounds, soft. Absent: tenderness Additional comments: Line abdominal wound VAC noted with sponge while compressed and transparent dressing intact. Small amount of serosanguineous drainage noted and the wound VAC canister. No evidence of leak. 125 mmHg continuous suction. Machado catheter draining clear yellow urine. SARBJIT drain noted to the left abdomen with purulent drainage. SARBJIT drain noted to the right abdomen with scant amount of serosanguineous drainage. - Extremities Exam Extremities exam: Present: normal inspection. Absent: joint swelling, pedal edema, tenderness - Neurological Exam Neurological exam: Present: altered (Sedated, but responds to verbal stimuli. Opens eyes and follows some commands.), no focal deficits - Skin Skin exam: Present: dry, intact, normal color, warm - VTE Documentation of Mechanical Device: Intermittent pneumatic compression device Consult Discharge Plan - Plan Referrals: Zafar Hinton MD [Primary Care Provider] - - Attending Attestation I examined this patient and my medical decision-making was reviewed with the Resident Physician. I agree with the documented findings, disposition and treatment plan as described except to the extent set forth below.
--- NOTE | 2018-06-05 18:19 | Operative Note ---
Date of procedure: 06/05/18 Pre-op diagnosis: Recurrent duodenal perforated ulcer Post-op diagnosis: same Procedure: #1 antrectomy with Dagoberto-en-Y reconstruction. +30% (redo, open abdomen, tremendous inflammation Anesthesia: GETA Surgeon: Pablo Hernandez Was there an planning assistant present: Yes Room Inspector: Benedict Serrano Estimated blood loss (cc): 250 Specimen: Antrum Condition: stable Disposition: ICU Procedure in Detail: The patient was evaluated in the intensive care unit. He had previously had patch procedure for perforated duodenal ulcer and subsequent right upper quadrant abscess. He now presents with recurrent perforation of the duodenum. He was taken for exploratory laparotomy several days ago. The surgeon was unable to identify the area of perforation secondary severity of inflammation in the right upper quadrant. He now presents in stable condition on a ventilator with an open abdomen controlled by wound VAC. He is draining bile from the right upper quadrant drains. Dr. Henao assisted on the entire operation. A physician investment sales assistant was necessary secondary to the complexity of the operation. The patient was taken major operating suite placed supine position and given adequate general anesthetic. The wound VAC was removed from the abdomen. The abdominal skin was prepped with Betadine solution and standard draping techniques. Timeout was taken and patient was identified. I entered the abdomen to find tremendous inflammatory response in the right upper quadrant I worked for 1520 minutes to slowly take down the indurated inflammatory omental tissues adhered to the right upper quadrant. I was able to identify the front edge of the liver. Once I was able to do this, I performed a wide [place] maneuver. I approached the franklyn hepatis from the lateral aspect. Once the side of the franklyn hepatis was identified I turned my attention to the lesser curvature of the stomach. I worked along the lesser curvature until I hit the large amount of inflammatory tissue overlying the franklyn hepatis. Once I had these tissue planes isolated on the medial and lateral aspect of the inflammatory tissue essentially overlying the franklyn hepatis I was able to go layer by layer and mobilize the upper portion of duodenum. There was no injury to the common bile duct or hepatic vessels. There was no injury to the portal vein. I was able I was able to identify the duodenal perforation plastered against the wall of the franklyn hepatis. The perforation was about 2-1/2 cm in size and there was no intense inflammatory response. At this point I made decision to mobilize the right colon. The hepatic flexure was identified and slowly mobilized and right upper quadrant allowing access to the duodenal sweep. I then identified the greater curvature of the stomach and divided some of the omental attachments on the antrum 10 of the lesser sac. Working inside the lesser sac on the posterior aspect of the stomach and anterior aspect of the pancreas I worked to the area where the duodenum became fused the pancreas. This roughly correlated to the area of perforation anteriorly I divided the right gastric and right gastroepiploic as they came off the gastroduodenal. The gastroduodenal trunk was ligated. I divided the duodenum this point of the ulcer. I left plenty of back wall so that I could roll this forward and close the perforation. This allowed complete mobilization of the period of his able to divide from the greater curvature toward the nome's foot and ankle up onto the lesser omentum for classic antrectomy. The antrum was then removed. The duodenal stump was closed with interrupted 2-0 silk stitches using a seromuscular imbrication technique. This gave excellent closure on the duodenal stump it was well vascularized. I divided the small bowel 40 cm past the ligament of Treitz and brought the distal small bowel through an opening on the left side of the middle colic artery. I then performed a handsewn 2 layer anastomosis between the Dagoberto limb and the stomach. 3-0 silk and 3-0 chromic was used for the anastomosis. This gave an excellent technical result. The remainder the staple line on the stomach was reinforced with 2-0 silk imbrication stitches The distal anastomosis was performed handsewn end to side with 3-0 silk and 3-0 chromic. This gave an excellent technical result. The opening in the transverse mesocolon was closed with interrupted silk. The opening between the mesentery of the proximal jejunum and distal jejunum was closed with interrupted 3-0 silk. I then dissected the falciform ligament along its entire length and swung the falciform ligament down to the closed duodenal stump. This was sutured in the area of the stump closure to provide additional vascularization and inflammatory tissue to allow for stump closure. 2 #10 Juan Carlos-Carney drains were placed. The abdomen was closed with 0 PDS and skin clips. Next The dissection was tremendously difficult secondary to intra-abdominal sepsis and inflammation. +30% for difficulty.
--- NOTE | 2018-06-05 18:30 | Operative Note ---
Date of procedure: 06/05/18 Pre-op diagnosis: failure of prior evie patch for perforated duodenal ulcer Post-op diagnosis: same Procedure: exploratory laparotomy antrectomy closure of duodenal stump gerri en Y reconstruction Implants: peritoneal drains x 2 Complications: none Anesthesia: GETA Surgeon: Pablo Hernandez Was there an ophthalmic surgical assistant present: Yes Fast Food Restaurant Manager: Benedict Serrano Estimated blood loss (cc): 250 Specimen: gastric antrum Condition: critical Disposition: PACU Procedure in Detail: 52M h/o obesity, DM II, GERD, prior perforated duodenal ulcer 2/2 NSAID use s/p evie patch with subsequent development of microabscesses, was on prolonged antibiotics represented with peritonitis and pneumoperitoneum s/p ex lap with drainage of intraperitoneal abscess, placement of drains with subsequent leakage of bilious fluid. Due to the concern for failure of prior repair, the decision was made to take the patient back to the OR for definitive repair. Dr. Hernandez was the primary surgeon and I was called upon due to the fact that this was for reoperative gastric/duodenal surgery and the anticipated complexity was high. The patient was brought into the operating room suite. Underwent smooth induction of anesthesia. Placed in the supine position. Prepped and draped in the usual fashion. Preoperative antibiotics were already given. A timeout was held identifying correct patient pathology physicians and procedure. Upon entry into the abdomen, there was signficant inflammation, particularly in the right upper quadrant. After careful dissection we were able to visualize the edge of the liver (along the anterior/superior surface). At this point, a wide markie maneuver was attempted (we had to mobilize the right colon to access to the duodenal sweep). We approached the franklyn hepatis and with careful dissection mobilized it free from the duodenum. We then found a clean dissection plane in the lesser sac and dissected until we reached the point of maximum inflammation. Once we realized that we had the segment isolated on both the medial and lateral sides, we were able to slowly mobilize the duodenum. Of note, were confirmed no injury to the franklyn structures, namely the common bile duct and hepatic artery nor the portal vein. We were able to identify the perforation. It appeared about 3-4cm in size. We divided the duodenum this point of the ulcer. The antrum was then removed using ISELA staplers (75mm, blue load) The duodenal stump was closed with interrupted 2-0 silk stitches using a seromuscular imbrication technique. This gave excellent closure on the duodenal stump it was well vascularized. Prior to the end of the procedure, the falciform ligament was mobilized to support the suture line as it was well vascularized. This was anchored with 3-0 silk We then began the GI reconstruction. We divided the small bowel 40 cm past the ligament of Treitz and brought the distal small bowel through the mesocolon, left of the middle colic artery. We then performed a handsewn 2 layer anastomosis between the Gerri limb and the stomach. 3-0 silk and 3-0 chromic was used for the anastomosis (the chromic was used for the mucosa, in a running- locking fashion on the backwall, and a ankit stitch from the front). The silk suture were used for Lembert sutures for extra support. The anastamosis was patent. The remainder the staple line on the stomach was reinforced with 2- 0 silk imbrication stitches. The stomach was then anchored to the mesocolon with 3.0 silk. The distal anastomosis was performed handsewn end to side with 3-0 silk and 3-0 chromic in a similar fashion. The mesenteric defect was closed in an interrupted fashion with 3-0 silk. 2 Juan Carlos-Carney drains were placed, one near the duodenal stump, the other superior near the proximal anastamosis. We then irrigated the abdomen with antibiotic impregnated solution. This concluded the procedure. The fascia was closed with 0-PDS suture in a running fashion. The skin closed with guille. The was then transported back to ICU
[2018-06-05] MEDS ORDERED: Naloxone 0.4 MG/ML INJ IVP PRN (18:50)
[2018-06-05] MEDS ORDERED: *HR* Labetalol 20 MG/4 ML SYRINGE IVP PRN (18:50)
[2018-06-05] MEDS ORDERED: Dextrose Gel 15 GM/37.5 ML TUBE PO PRN ×2 (18:50)
[2018-06-05] MEDS ORDERED: Artificial Tears SOLN 15 ML BOTTLE BOTH EYES PRN (18:50)
[2018-06-05] MEDS ORDERED: *HR* Dextrose 50 % in Water (Syg) 50 ML SYRINGE IVP PRN (18:50)
[2018-06-05] MEDS ORDERED: Potassium Phosphate 44 MEQ in 0.9 % Sodium Chloride 250 ML IVPB PRN (18:50)
[2018-06-05] MEDS ORDERED: D5% in Water 1,000 ML IVC PRN (18:50)
--- NOTE | 2018-06-05 18:59 | Anesthesia Evaluation Post Op ---
Date of Encounter: 06/05/18 Time of Encounter: 18:54 - Vital Signs Vital Signs: Vital Signs/O2 Sat, Most Current Temp Pulse Resp BP Pulse Ox 98.7 F 53 14 129/78 98 06/05/18 12:00 06/05/18 14:00 06/05/18 14:00 06/05/18 14:00 06/05/18 14:00 - Lungs Lungs: Clear Ascult./Percussion - Airway Airway: Intubated - Cardiovascular Regular Rate - Mental Status Mental Status: Sedated - Pain Pain Scale used: Unable to assess - Nausea Vomiting Nausea Vomiting: Not Present - Hydration Hydration: NPO, Machado catheter - Discharge PostOp Status: Transfer Patient to floor Attestation: further care per icu team
[2018-06-05 20:06] LABS: VBG Ionized Calcium 1.17 mmol/L (1.15-1.35)
[2018-06-05 20:09] LABS: Hematocrit 36.2 % (37.5-50.1)
[2018-06-05 20:13] LABS: Hemoglobin 11.2 g/dL (12.9-16.9)
[2018-06-05] MEDS ORDERED: 0.9 % Sodium Chloride 500 ML IVC ONE ×4 (20:41→23:40)
[2018-06-05 20:47] LABS: BUN/Creatinine Ratio 20 (6-26); Blood Urea Nitrogen 21 mg/dL (6-20); Calcium 8.7 mg/dL (8.6-10.3); Carbon Dioxide 24 mEq/L (23-29); Chloride 107 mEq/L (98-107); Glucose 252 mg/dL (70-105); Osmolality,Calculated 298 (280-300); Phosphorous 5.7 mg/dL (2.7-4.5); Potassium 4.8 mEq/L (3.5-5.1); Sodium 138 mEq/L (136-145); eGFR For Non-African Americans > 60 (> 60)
[2018-06-05] MEDS ORDERED: 0.9 % Sodium Chloride 1,000 ML ONE ×2 (20:48→22:49)
[2018-06-05] MEDS: Pantoprazole 40 MG in 0.9 % Sodium Chloride Mini Bag 100 ML IVC SCH ×2 (20:59→23:24)
--- NOTE | 2018-06-05 23:51 | Electrocardiograph Report ---
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
[2018-06-06] MEDS ORDERED: 0.9 % Sodium Chloride 500 ML IVC ONE ×2 (00:23→01:05)
[2018-06-06 02:36] LABS: Hematocrit 30.6 % (37.5-50.1); Mean Corpuscular HGB Conc 30.7 g/dL (31.6-35.5); Mean Corpuscular Volume 87.9 fL (83.0-100.0); Mean Platelet Volume 9.8 fL (9.4-12.4); Nucleated Red Blood Cells 0.2 /100 WBC (0); Platelet Count 230 K/mcL (140-400); Red Blood Count 3.48 M/mcL (4.19-5.50); Red Cell Distribution Width 15.3 % (11.5-14.5)
[2018-06-06 02:37] LABS: Hemoglobin 9.4 g/dL (12.9-16.9)
[2018-06-06 02:37] LABS: VBG Ionized Calcium 1.11 mmol/L (1.15-1.35)
[2018-06-06] MEDS: Phenylephrine 10 MG in D5% in Water 250 ML IVC SCH ×3 (02:39→07:54)
[2018-06-06] MEDS: Artificial Tears SOLN 15 ML BOTTLE BOTH EYES SCH ×6 (02:43→23:44)
[2018-06-06 02:51] LABS: Neutrophils # 16.2 K/mcL (1.6-8.9); Platelet Estimate Normal (Normal)
[2018-06-06 02:54] LABS: BUN/Creatinine Ratio 24 (6-26); Blood Urea Nitrogen 25 mg/dL (6-20); Calcium 7.6 mg/dL (8.6-10.3); Carbon Dioxide 21 mEq/L (23-29); Chloride 111 mEq/L (98-107); Glucose 207 mg/dL (70-105); Magnesium 1.8 mg/dL (1.6-2.6); Osmolality,Calculated 292 (280-300); Phosphorous 4.6 mg/dL (2.7-4.5); Potassium 4.9 mEq/L (3.5-5.1); Sodium 136 mEq/L (136-145); eGFR For Non-African Americans > 60 (> 60)
[2018-06-06] MEDS: FentaNYL (PF) 1,000 MCG in 0.9 % Sodium Chloride 80 ML IVC SCH ×3 (03:10→12:10)
[2018-06-06 04:59] LABS: ABG Base Excess -5 mEq/L (-2 to 3); ABG HCO3 20 mEq/L (21-27); ABG Oxygen Saturation 98 % (95-98); ABG PCO2 38 mmHg (35-45); ABG PH 7.33 pH Units (7.32-7.45); ABG PO2 104 mmHg (85-104); ABG TCO2 21 mEq/L (20-26); Blood Gas Modality VC; Blood Gas PEEP 5 cm H2O; Blood Gas Respiration Rate 14; Blood Gas VT 500 cc
[2018-06-06] MEDS: Pantoprazole 40 MG in 0.9 % Sodium Chloride Mini Bag 100 ML IVC SCH ×4 (05:35→23:47)
[2018-06-06] MEDS: Insulin LISPRO 300 UNITS/3 ML VIAL SQ SCH ×4 (05:39→23:43)
--- NOTE | 2018-06-06 06:50 | Pulmonology Progress Note ---
<StephanieKota W - Last Filed: 06/06/18 07:43> Date of Encounter: 06/06/18 Objective PUL Vital signs: Last Vital Signs Temp 101.3 F H 06/06/18 04:00 Pulse 121 06/06/18 06:00 Resp 20 06/06/18 06:00 BP 86/61 06/06/18 06:00 Pulse Ox 98 06/06/18 06:00 Ventilator Settings Ventilator Settings: Ventilator Settings, Last 8 Hours Ventilator Tidal Volume 500 Setting Ventilator Tidal Volume 500 Setting Ventilator Tidal Volume 500 Setting Ventilator Tidal Volume 500 Setting Ventilator Tidal Volume 500 Setting Ventilator Tidal Volume 500 Setting Ventilator Tidal Volume 500 Setting Ventilator Tidal Volume 500 Setting Ventilator Tidal Volume 500 Setting Ventilator Tidal Volume 500 Setting Ventilator Tidal Volume 500 Setting Ventilator Tidal Volume 500 Setting Ventilator Tidal Volume 500 Setting Ventilator Respiratory Rate 14 Setting Ventilator Respiratory Rate 14 Setting Ventilator Respiratory Rate 14 Setting Ventilator Respiratory Rate 14 Setting Ventilator Respiratory Rate 14 Setting Ventilator Respiratory Rate 14 Setting Ventilator Respiratory Rate 14 Setting Ventilator Respiratory Rate 14 Setting Ventilator Respiratory Rate 14 Setting Ventilator Respiratory Rate 14 Setting Ventilator Respiratory Rate 14 Setting Ventilator Respiratory Rate 14 Setting Ventilator Respiratory Rate 14 Setting Actual Respiratory Rate 20 Actual Respiratory Rate 18 Actual Respiratory Rate 20 Actual Respiratory Rate 20 Actual Respiratory Rate 20 Actual Respiratory Rate 20 Actual Respiratory Rate 20 Actual Respiratory Rate 19 Actual Respiratory Rate 20 Actual Respiratory Rate 16 Actual Respiratory Rate 16 Actual Respiratory Rate 14 Positive End Expiratory 5 Pressure Positive End Expiratory 5 Pressure Positive End Expiratory 5 Pressure Positive End Expiratory 5 Pressure Positive End Expiratory 5 Pressure Positive End Expiratory 5 Pressure Positive End Expiratory 5 Pressure Positive End Expiratory 5 Pressure Positive End Expiratory 5 Pressure Positive End Expiratory 5 Pressure Positive End Expiratory 5 Pressure Positive End Expiratory 5 Pressure Positive End Expiratory 5 Pressure Peak Inspiratory Airway 6.3 Pressure Peak Inspiratory Airway 7.2 Pressure Peak Inspiratory Airway 6.3 Pressure Peak Inspiratory Airway 6.3 Pressure Peak Inspiratory Airway 11 Pressure Peak Inspiratory Airway 6.3 Pressure Peak Inspiratory Airway 6.5 Pressure Peak Inspiratory Airway 7 Pressure Peak Inspiratory Airway 6.5 Pressure Peak Inspiratory Airway 6.7 Pressure Peak Inspiratory Airway 6.9 Pressure Peak Inspiratory Airway 8.4 Pressure Results - Laboratory Findings CBC and BMP: 06/06/18 02:10 06/06/18 02:10 ABG ABG pH 7.33 pH Units (7.32-7.45) 06/06/18 04:54 ABG pCO2 38 mmHg (35-45) 06/06/18 04:54 ABG pO2 104 mmHg (85-104) 06/06/18 04:54 ABG O2 Saturation 98 % (95-98) 06/06/18 04:54 PT/INR, D-dimer PT 12.9 Seconds (9.4-12.1) H 06/02/18 17:29 Abnormal lab findings: Abnormal lab results WBC 17.2 K/mcL (4.3-11.1) H D 06/06/18 02:10 RBC 3.48 M/mcL (4.19-5.50) L 06/06/18 02:10 Hgb 9.4 g/dL (12.9-16.9) L D 06/06/18 02:10 Hct 30.6 % (37.5-50.1) L 06/06/18 02:10 MCH 27.0 pg (28.0-33.3) L 06/06/18 02:10 MCHC 30.7 g/dL (31.6-35.5) L 06/06/18 02:10 RDW 15.3 % (11.5-14.5) H 06/06/18 02:10 Immature Gran % 5.2 % (0-4) H 06/05/18 04:50 Neutrophils # 16.2 K/mcL (1.6-8.9) H 06/06/18 02:10 Nucleated RBCs/100 WBC 0.2 /100 WBC (0) H 06/06/18 02:10 PT 12.9 Seconds (9.4-12.1) H 06/02/18 17:29 ABG HCO3 20 mEq/L (21-27) L 06/06/18 04:54 ABG Base Excess -5 mEq/L (-2 to 3) L 06/06/18 04:54 Chloride 111 mEq/L (98-107) H 06/06/18 02:10 Carbon Dioxide 21 mEq/L (23-29) L 06/06/18 02:10 BUN 25 mg/dL (6-20) H 06/06/18 02:10 Glucose 207 mg/dL (70-105) H 06/06/18 02:10 POC Glucose 191 mg/dL (70-99) H 06/05/18 23:32 Calcium 7.6 mg/dL (8.6-10.3) L 06/06/18 02:10 Venous Ioniz Calcium 1.11 mmol/L (1.15-1.35) L 06/06/18 02:32 Phosphorus 4.6 mg/dL (2.7-4.5) H 06/06/18 02:10 Creatine Kinase 11 Units/L (30-223) L 06/02/18 17:29 Serum Total Protein 5.5 g/dL (6.4-8.9) L 06/03/18 04:46 Albumin 3.1 g/dL (3.5-5.7) L 06/03/18 04:46 Triglycerides 332 mg/dL (< 150) H 06/04/18 05:02 Urine Clarity Cloudy (Clear) A 06/02/18 09:18 Urine Protein 100 mg/dL (Neg-Trace) H 06/02/18 09:18 Urine Blood Large (Negative) H 06/02/18 09:18 Ur Leukocyte Esterase Moderate (Negative) H 06/02/18 09:18 Urine Microscopic RBC TNTC per hpf (0-3) H 06/02/18 09:18 Urine Microscopic WBC 15-30 per hpf (0-3) H 06/02/18 09:18 Ur Squamous Epith Cells Many per lpf (None-Few) H 06/02/18 09:18 Ur Culture Indicated? NO. (NO) A 06/02/18 09:18 Enterobacteriac sp PCR DETECTED (Not Detect) A 06/02/18 09:18 E. coli (PCR) DETECTED (Not Detect) A 06/02/18 09:18 - Microbiology Findings Microbiology Findings: Microbiology, Last 48 Hours 06/06/18 03:35 Blood Culture - Preliminary Peripheral Venipuncture Culture is incubating and being continuously monitored for growth. Final report to follow. 06/06/18 01:42 Blood Culture - Preliminary Peripheral Venipuncture Culture is incubating and being continuously monitored for growth. Final report to follow. 06/02/18 20:12 Anaerobic Culture - Preliminary Peritoneal Fluid At this time, no anaerobic growth is present. The culture will be finalized after 5 days of incubation. 06/02/18 20:12 Body Fluid Culture - Final Peritoneal Fluid Escherichia coli 06/04/18 09:12 Blood Culture - Preliminary Peripheral Venipuncture Culture is incubating and being continuously monitored for growth. Final report to follow. 06/04/18 09:10 Blood Culture - Preliminary Peripheral Venipuncture Culture is incubating and being continuously monitored for growth. Final report to follow. - Clinical Findings Intake & Output: Intake & Output 06/05/18 06/05/18 06/06/18 15:59 23:59 07:59 Intake Total 714 / 714 4160 / 4160 2457 / 2457 Output Total 1290 / 1290 560 / 560 465 / 465 Balance -576 / -576 3600 / 3600 1991 Weight 105.4 kg Consult Discharge Plan - Plan Referrals: Zafar Hinton MD [Primary Care Provider] - - Attending Attestation I examined this patient and my medical decision-making was reviewed with the Resident Physician. I agree with the documented findings, disposition and treatment plan as described except to the extent set forth below. We independently had [id number] contact with the patient I spent 40min of Critical Care time with this patient. It involved decision making of high complexity to assess, manipulate, and support vital organ system failure and/or to prevent further life threatening deterioration of the patient' s condition. The time involved in the performance of separately reportable procedures was not counted toward critical care time. Patient seen and examined at bedside Labs, radiology, chart personally reviewed. Management was reviewed during multidisciplinary critical care rounds. [employer] REPAIRER: Patient deeply sedated post surgery. He continues to over breathe the ventilator with evidence of ineffectual respiration (abdominal breathing). Favor continued deep sedation today without spontaneous awake trial because of critical illness Pulm: Acceptable gas exchange on vent. Not a candidate for spontaneous breathing trial because of critical illness Cards: Tachycardia with Distributive shock secondary to sepsis lactate within normal limits I suspect this is related to postsurgical inflammatory mediators he is on phenylephrine at the request of the general surgery service to preserve anastomosis goal map around 65. He is undergone aggressive crystalloid resuscitation. GI: Postop day 3 status post exploratory laparoscopy with abdominal washout postop day 1 status post Gerri-en-Y for duodenal ulcer with abdominal washout general surgery managing these aspects. Nutrition: Continue TPN Renal: He has had decreased urine output over the last 12 hours after surgery there is no evidence of abdominal compartment syndrome at this time but will need to monitor for this closely. UOP Monitored, Cont to Trend sCr and monitor Electrolytes. ID: Escherichia coli bacteremia from intra-abdominal abscess also treating for possibility of fungal: Function with fluconazole he has evidence of worsening sepsis overnight which is likely secondary to surgical manipulation cultures have been obtained and a low threshold for broadening out for MRSA coverage with this time I suspect this is all related to postsurgical inflammatory response. Infectious disease following Heme/Onc: DVT prophylaxis given. He has anticipated slight drop in H&H post surgery repeat CBC pending. Endo: Glucose Monitored Integ/MSK: Skin Care per routine ICU Nursing Protocol to prevent ulcers. Lines: All lines examined without evidence of infection : Dispo: Remain in ICU for critical illness CODE: Full. <Ethan Patterson - Last Filed: 06/06/18 10:32> Date of Encounter: 06/06/18 Time of Encounter: 06:46 Assessment and Plan (1) Septic shock due to Escherichia coli Current Visit: Yes Status: Acute Secondary to intraabdominal abscess with purulent fluid collections/ E. coli bacteremia. Remains intubated and sedated with propofol, added versed, continue fentanyl. ABG improved today. Ph 7.33, paco2 38, po2 104 on 30% fio2. Prelim blood culture pos for E coli. Sensitive to pip/tazo which he is on, resistant to ampicillin, amp/sulbactam. Abdominal fluid culture pos for gram neg edu, likely E coli also, no sensitivities yet. Today patient is tachycardic with HR into 120s, hypotensive requiring Phenelypherine pressor support overnight. Tmax 101.3F this AM, with reactive post-op leukocytosis. Will continue zosyn and diflucan for now. PICC team consulted to insert EPIV. ID and general surgery closely following. Condition remains guarded with a potential for worsening despite appropriate medical interventions. (2) Bacteremia due to Gram-negative bacteria Current Visit: Yes Status: Acute 06/02/18 blood culture pos for E coli 1/2 via PCR, sensitive to pip/tazo which he is on, resistant to ampicillin, amp/sulbactam. ID is on board. Will continue current abx, not able to deescalate at this time Repeat blood cultures collected 06/06/18 (3) Perforated viscus Current Visit: Yes Status: Acute S/p exlap, washout 06/02/18. S/p exploratory laparotomy, antrectomy, closure of duodenal stump, and gerri en Y reconstruction 06/05/18 Gen surg following (4) Lactic acidosis Current Visit: Yes Status: Acute Improved from high of 5.1 down to 1.8 (5) Acute on chronic renal failure Current Visit: Yes Status: Resolved Sr down from 1.99 to 1.04 today. His fluid balance is net positive 5588cc during current hospital stay. Albumin x2 given 06/06/18. Decreased urine output over the last 12 hours after surgery, no evidence of abdominal compartment syndrome Monitor and replace electrolytes as needed. Qualifiers: Acute renal failure type: unspecified Chronic kidney disease stage: unspecified stage Qualified Code(s): N17.9 - Acute kidney failure, unspecified ; N18.9 - Chronic kidney disease, unspecified (6) Diabetes Current Visit: Yes Status: Chronic HGB a1c 5.8 on 04/22/18 SSI increased to high dose coverage 06/06/18 Continue acuchecks q6h. Qualifiers: Diabetes mellitus type: type 2 Diabetes mellitus intermediate insulin use: without parts counterman use Diabetes mellitus complication status: with hyperglycemia Qualified Code(s): E11.65 - Type 2 diabetes mellitus with hyperglycemia (7) Hypertension Current Visit: Yes Status: Chronic Hold home antihypertensive meds due to hypotension Qualifiers: Hypertension type: essential hypertension Qualified Code(s): I10 - Essential (primary) hypertension (8) VRE (vancomycin-resistant Enterococci) Current Visit: No Status: Inactive Hx of VRE in urine. Previously treated with outpatient abx by ID. (9) Obesity (BMI 30.0-34.9) Current Visit: Yes Status: Chronic BMI 33.3, continue TPN for nutrition (10) DVT prophylaxis Current Visit: Yes Status: Acute Heparin subQ TID Subjective Principal diagnosis: Severe sepsis Interval history: Patient seen and examined on POD#1 s/p exploratory laparotomy, antrectomy, closure of duodenal stump, and gerri en Y reconstruction. Patient remains intubated and sedated. Nursing reports tachycardia with HR into 120s and hypotension requiring Phenelypherine pressor support overnight. Patient has been febrile with Tmax 101.3F this AM and remains on Zosyn. He was given a total of 3L normal saline last night and has decreased urinary output. His fluid balance is net positive 5588cc during current hospital stay. CXR ordered. Objective PUL Vital signs: Last Vital Signs Temp 101.3 F H 06/06/18 04:00 Pulse 121 06/06/18 06:00 Resp 20 06/06/18 06:00 BP 86/61 06/06/18 06:00 Pulse Ox 98 06/06/18 06:00 General appearance: other (intubated, sedated, obese) Eyes: other (pinpoint bilaterally, reactive to light) ENT: oropharynx dry (intubated) Effort: other (ventilated, equal breath sounds bilterally) Auscultation: bilateral: diminished breath sounds (bibasilar) Cardiovascular: other (sinus tachycardia, no M/R/G) Integumentary: erythema (mottled, midline abdominal incision intact, bilateral SARBJIT drains in place with serosanguinous drainage) Extremities: no edema, pulses normal, cool Musculoskeletal: no deformities Gait: normal posture unable to assess due to mental status (sedated, responds to noxious stimuli) Ventilator Settings Ventilator Settings: Ventilator Settings, Last 8 Hours Ventilator Tidal Volume 500 Setting Ventilator Tidal Volume 500 Setting Ventilator Tidal Volume 500 Setting Ventilator Tidal Volume 500 Setting Ventilator Tidal Volume 500 Setting Ventilator Tidal Volume 500 Setting Ventilator Tidal Volume 500 Setting Ventilator Tidal Volume 500 Setting Ventilator Tidal Volume 500 Setting Ventilator Tidal Volume 500 Setting Ventilator Tidal Volume 500 Setting Ventilator Tidal Volume 500 Setting Ventilator Tidal Volume 500 Setting Ventilator Tidal Volume 500 Setting Ventilator Respiratory Rate 14 Setting Ventilator Respiratory Rate 14 Setting Ventilator Respiratory Rate 14 Setting Ventilator Respiratory Rate 14 Setting Ventilator Respiratory Rate 14 Setting Ventilator Respiratory Rate 14 Setting Ventilator Respiratory Rate 14 Setting Ventilator Respiratory Rate 14 Setting Ventilator Respiratory Rate 14 Setting Ventilator Respiratory Rate 14 Setting Ventilator Respiratory Rate 14 Setting Ventilator Respiratory Rate 14 Setting Ventilator Respiratory Rate 14 Setting Ventilator Respiratory Rate 14 Setting Actual Respiratory Rate 20 Actual Respiratory Rate 18 Actual Respiratory Rate 20 Actual Respiratory Rate 20 Actual Respiratory Rate 20 Actual Respiratory Rate 20 Actual Respiratory Rate 20 Actual Respiratory Rate 19 Actual Respiratory Rate 20 Actual Respiratory Rate 16 Actual Respiratory Rate 16 Actual Respiratory Rate 14 Actual Respiratory Rate 14 Positive End Expiratory 5 Pressure Positive End Expiratory 5 Pressure Positive End Expiratory 5 Pressure Positive End Expiratory 5 Pressure Positive End Expiratory 5 Pressure Positive End Expiratory 5 Pressure Positive End Expiratory 5 Pressure Positive End Expiratory 5 Pressure Positive End Expiratory 5 Pressure Positive End Expiratory 5 Pressure Positive End Expiratory 5 Pressure Positive End Expiratory 5 Pressure Positive End Expiratory 5 Pressure Positive End Expiratory 5 Pressure Peak Inspiratory Airway 6.3 Pressure Peak Inspiratory Airway 7.2 Pressure Peak Inspiratory Airway 6.3 Pressure Peak Inspiratory Airway 6.3 Pressure Peak Inspiratory Airway 11 Pressure Peak Inspiratory Airway 6.3 Pressure Peak Inspiratory Airway 6.5 Pressure Peak Inspiratory Airway 7 Pressure Peak Inspiratory Airway 6.5 Pressure Peak Inspiratory Airway 6.7 Pressure Peak Inspiratory Airway 6.9 Pressure Peak Inspiratory Airway 8.4 Pressure Peak Inspiratory Airway 5.1 Pressure Results - Laboratory Findings CBC and BMP: 06/06/18 02:10 06/06/18 02:10 ABG ABG pH 7.33 pH Units (7.32-7.45) 06/06/18 04:54 ABG pCO2 38 mmHg (35-45) 06/06/18 04:54 ABG pO2 104 mmHg (85-104) 06/06/18 04:54 ABG O2 Saturation 98 % (95-98) 06/06/18 04:54 PT/INR, D-dimer PT 12.9 Seconds (9.4-12.1) H 06/02/18 17:29 Abnormal lab findings: Abnormal lab results WBC 17.2 K/mcL (4.3-11.1) H D 06/06/18 02:10 RBC 3.48 M/mcL (4.19-5.50) L 06/06/18 02:10 Hgb 9.4 g/dL (12.9-16.9) L D 06/06/18 02:10 Hct 30.6 % (37.5-50.1) L 06/06/18 02:10 MCH 27.0 pg (28.0-33.3) L 06/06/18 02:10 MCHC 30.7 g/dL (31.6-35.5) L 06/06/18 02:10 RDW 15.3 % (11.5-14.5) H 06/06/18 02:10 Immature Gran % 5.2 % (0-4) H 06/05/18 04:50 Neutrophils # 16.2 K/mcL (1.6-8.9) H 06/06/18 02:10 Nucleated RBCs/100 WBC 0.2 /100 WBC (0) H 06/06/18 02:10 PT 12.9 Seconds (9.4-12.1) H 06/02/18 17:29 ABG HCO3 20 mEq/L (21-27) L 06/06/18 04:54 ABG Base Excess -5 mEq/L (-2 to 3) L 06/06/18 04:54 Chloride 111 mEq/L (98-107) H 06/06/18 02:10 Carbon Dioxide 21 mEq/L (23-29) L 06/06/18 02:10 BUN 25 mg/dL (6-20) H 06/06/18 02:10 Glucose 207 mg/dL (70-105) H 06/06/18 02:10 POC Glucose 191 mg/dL (70-99) H 06/05/18 23:32 Calcium 7.6 mg/dL (8.6-10.3) L 06/06/18 02:10 Venous Ioniz Calcium 1.11 mmol/L (1.15-1.35) L 06/06/18 02:32 Phosphorus 4.6 mg/dL (2.7-4.5) H 06/06/18 02:10 Creatine Kinase 11 Units/L (30-223) L 06/02/18 17:29 Serum Total Protein 5.5 g/dL (6.4-8.9) L 06/03/18 04:46 Albumin 3.1 g/dL (3.5-5.7) L 06/03/18 04:46 Triglycerides 332 mg/dL (< 150) H 06/04/18 05:02 Urine Clarity Cloudy (Clear) A 06/02/18 09:18 Urine Protein 100 mg/dL (Neg-Trace) H 06/02/18 09:18 Urine Blood Large (Negative) H 06/02/18 09:18 Ur Leukocyte Esterase Moderate (Negative) H 06/02/18 09:18 Urine Microscopic RBC TNTC per hpf (0-3) H 06/02/18 09:18 Urine Microscopic WBC 15-30 per hpf (0-3) H 06/02/18 09:18 Ur Squamous Epith Cells Many per lpf (None-Few) H 06/02/18 09:18 Ur Culture Indicated? NO. (NO) A 06/02/18:18 Enterobacteriac sp PCR DETECTED (Not Detect) A 06/02/18:18 E. coli (PCR) DETECTED (Not Detect) A 06/02/18 09:18 - Microbiology Findings Microbiology Findings: Microbiology, Last 48 Hours 06/06/18 03:35 Blood Culture - Preliminary Peripheral Venipuncture Culture is incubating and being continuously monitored for growth. Final report to follow. 06/06/18 01:42 Blood Culture - Preliminary Peripheral Venipuncture Culture is incubating and being continuously monitored for growth. Final report to follow. 06/02/18 20:12 Anaerobic Culture - Preliminary Peritoneal Fluid At this time, no anaerobic growth is present. The culture will be finalized after 5 days of incubation. 06/02/18 20:12 Body Fluid Culture - Final Peritoneal Fluid Escherichia coli 06/04/18 09:12 Blood Culture - Preliminary Peripheral Venipuncture Culture is incubating and being continuously monitored for growth. Final report to follow. 06/04/18 09:10 Blood Culture - Preliminary Peripheral Venipuncture Culture is incubating and being continuously monitored for growth. Final report to follow. - Diagnostic Findings Chest x-ray: report reviewed, image reviewed Additional studies: ITS Impressions Chest X-Ray 06/06/18 07:23 IMPRESSION: 1. Endotracheal tube tip is approximately 3.5 cm above the bobbi. 2. Enteric tube has been advanced with the side port projecting over the stomach. 3. Right basilar atelectasis. D/ / Karena Mcadams MD / Karena Mcadams MD Interpreting Provider: Karena Mcadams MD - Clinical Findings Intake & Output: Intake & Output 06/05/18 06/05/18 06/06/18 15:59 23:59 07:59 Intake Total 714 / 714 4160 / 4160 2457 / 2457 Output Total 1290 / 1290 560 / 560 465 / 465 Balance -576 / -576 3600 / 3600 1991 / 1991 Weight 105.4 kg - VTE Documentation of Mechanical Device: Intermittent pneumatic compression device
--- NOTE | 2018-06-06 07:43 | General Surgery Progress Note ---
Date of Encounter: 06/06/18 Time of Encounter: 07:39 - Assessment and Plan (1) Peritonitis Current Visit: Yes Status: Acute 52M admitted with recurrence of perforated ulcer after evie patch POD #4 s/p ex lap with drainage of intraabdominal abscess, POD #1 s/p antrectomy with RNY reconstruction; septic as expected neuro: cont sedation regimen; cares per icu cardio: tachycardic, on pressors; wean pressors as tolerated pulm: on vent; wean vent as tolerated GI: cont TPN, cont PPI gtt, sabine Ng tube; monitor drain output : cont banda; trend UOP, Cr ID: cont antimicrobial regimen; WBC elevation expected Heme; hep for dvt prophylaxis FEN: TPN; replete lytes; endo: glucose < 150 disp: cont iCU cares Subjective Patient reports: afebrile, other (tachycardic, hypotensive overnight; good UOP; ) Objective Vital Signs - Last 8 Hours Temp Pulse Resp BP Pulse Ox 06/06/18 06:00 121 20 86/61 98 06/06/18 05:51 18 93/59 98 06/06/18 05:00 122 20 90/56 98 06/06/18 04:00 101.3 F H 130 20 95/67 99 06/06/18 03:58 20 89/61 97 06/06/18 03:00 135 20 70/53 97 06/06/18 02:30 137 20 76/53 97 06/06/18 02:02 19 86/55 97 06/06/18 02:00 101.1 F H 141 20 86/55 97 06/06/18 01:00 141 16 85/66 98 06/06/18 00:00 100.2 F H 146 16 94/74 100 06/05/18 23:57 14 91/67 100 Intake and Output 06/05/18 06/05/18 06/06/18 15:59 23:59 07:59 Intake Total 714 / 714 4160 / 4160 2457 / 2457 Output Total 1290 / 1290 560 / 560 465 / 465 Balance -576 / -576 3600 / 3600 1991 / 1991 Intake: IV Fluids 714 / 714 4160 / 4160 2457 / 2457 0.9 % Sodium Chloride 500 ML @ 1500 / 1500 1500 / 1500 999 mls/hr IVC .Q31M [facility] Rx#: [id number] FentaNYL (PF) 1,000 MCG In 0.9 100 / 100 100 / 100 100 / 100 % Sodium Chloride 80 ML @ 50 MCG/HR 5 mls/hr IVC CONT [facility] Rx #:[id number] Clinimix E 5%-15% SOLUTION 2, 2000 / 1999 000 ML @ 83.3 mls/hr IVC .Q24H [place] with M.v.i. Adult 10 ml Rx# :[id number] Protonix 40 MG In 0.9 % Sodium 100 / 100 100 / 100 Chloride (Mini-Bag +) 100 ML @ 20 mls/hr IVC .Q5H [facility] Rx#: [id number] Phenylephrine 10 MG In Dextrose 353 / 353 5% 250 ML @ 40 MCG/MIN 60.24 mls/hr IVC CONT [facility] Rx#: [id number] Diprivan 1,000 mg In 100 ml @ 200 / 200 200 / 200 200 / 200 10 MCG/KG/MIN 6.26 mls/hr IVC . [id number] [facility] Rx#:[id number] Calcium Gluconate 1,000 MG In 0 110 / 110 .9 % Sodium Chloride 100 ML @ 220 mls/hr IVPB Q6HR PRN Rx#: [id number] Diflucan Premix 200 MG/100 ML 100 / 100 200 mg In 100 ml @ 100 mls/hr IVPB DAILY [facility] Rx#:[id number] Magnesium Sulfate 2 GM In 0.9 % 104 / 104 104 / 104 Sodium Chloride 100 ML @ 52 mls/hr IVPB Q6H PRN Rx#: [id number] Zosyn 3.375 GM In 0.9 % Sodium 100 / 100 100 / 100 Chloride (Mini-Bag +) 100 ML @ 25 mls/hr IVPB Q8HR [facility] Rx#: [id number] Potassium Phosphate 44 MEQ In 0 260 / 260 .9 % Sodium Chloride 250 ML @ 40 mls/hr IVPB Q10H PRN Rx#: [id number] Output: Estimated Blood Loss 250 / 250 Catheter 1200 / 1200 100 / 100 300 / 300 Wound Drainage 90 / 90 210 / 210 165 / 165 Abdomen 50 / 50 Left Abdomen 25 / 25 110 / 110 45 / 45 Right Abdomen 15 / 15 100 / 100 120 / 120 Other: Weight 105.4 kg Blood Glucose* 192 191 Patient Weight 06/06/18 23:59 Weight 105.4 kg - General physical appearance moderate distress - Respiratory normal expansion, other (intubated) - Cardiovascular Cardiovascular exam: Present: RRR, tachycardia - Abdomen Abdomen: Present: soft - Incision Incision: Present: draining, intact, serosanguinous - Integumentary no rash, no abnormal pigmentation - Labs 06/06/18 02:10 06/06/18 02:10 Diabetes panel 06/05/18 06/05/18 06/06/18 Range/Units 04:50 19:55 02:10 Sodium 143 138 136 (136-145) mEq/L Potassium 3.3 L 4.8 D 4.9 (3.5-5.1) mEq/L Chloride 116 H 107 111 H (98-107) mEq/L Carbon Dioxide 20 L 24 21 L (23-29) mEq/L BUN 14 21 H 25 H (6-20) mg/dL Creatinine 0.71 1.04 1.04 (0.70-1.30) mg/dL Glucose 110 H 252 H 207 H (70-105) mg/dL Calcium 6.4 L 8.7 7.6 L (8.6-10.3) mg/dL Calcium panel 06/05/18 06/05/18 06/06/18 Range/Units 04:50 19:55 02:10 Calcium 6.4 L 8.7 7.6 L (8.6-10.3) mg/dL Phosphorus 2.6 L 5.7 H 4.6 H (2.7-4.5) mg/dL Pituitary panel 06/05/18 06/05/18 06/06/18 Range/Units 04:50 19:55 02:10 Sodium 143 138 136 (136-145) mEq/L Potassium 3.3 L 4.8 D 4.9 (3.5-5.1) mEq/L Chloride 116 H 107 111 H (98-107) mEq/L Carbon Dioxide 20 L 24 21 L (23-29) mEq/L BUN 14 21 H 25 H (6-20) mg/dL Creatinine 0.71 1.04 1.04 (0.70-1.30) mg/dL Glucose 110 H 252 H 207 H (70-105) mg/dL Calcium 6.4 L 8.7 7.6 L (8.6-10.3) mg/dL Adrenal panel 06/05/18 06/05/18 06/06/18 Range/Units 04:50 19:55 02:10 Sodium 143 138 136 (136-145) mEq/L Potassium 3.3 L 4.8 D 4.9 (3.5-5.1) mEq/L Chloride 116 H 107 111 H (98-107) mEq/L Carbon Dioxide 20 L 24 21 L (23-29) mEq/L BUN 14 21 H 25 H (6-20) mg/dL Creatinine 0.71 1.04 1.04 (0.70-1.30) mg/dL Glucose 110 H 252 H 207 H (70-105) mg/dL Calcium 6.4 L 8.7 7.6 L (8.6-10.3) mg/dL - VTE Documentation of Mechanical Device: Intermittent pneumatic compression device Consult Discharge Plan - Plan Referrals: Zafar Hinton MD [Primary Care Provider] -
[2018-06-06] MEDS ORDERED: Albumin 25% 25gram/100mL 25 GM/100 ML IV.SOLN IVPB ONE ×2 (07:53→13:00)
[2018-06-06] MEDS: *HR* Heparin 5,000 UNIT/ML VIAL SQ SCH ×3 (08:49→21:47)
[2018-06-06] MEDS: Piperacillin/Tazobactam 3.375 GM in 0.9 % Sodium Chloride Mini Bag 100 ML IVPB SCH ×3 (08:51→23:41)
[2018-06-06] MEDS ORDERED: Pantoprazole 40 MG VIAL IVP SCH (09:00)
[2018-06-06 09:17] LABS: Alanine Aminotransferase 28 Units/L (7-52); Albumin 2.4 g/dL (3.5-5.7); Albumin/Globulin Ratio 1.2 (1.1-2.2); Alkaline Phosphatase 63 Units/L (34-104); Aspartate Amino Transferase 24 Units/L (13-39); Bilirubin,Direct 0.4 mg/dL (0.0-0.2); Bilirubin,Indirect 0.1 mg/dL (0.0-1.2); Bilirubin,Total 0.5 mg/dL (0.3-1.0); Total Protein 4.4 g/dL (6.4-8.9)
[2018-06-06] MEDS: Fluconazole 200 MG/100 ML 200 MG/100 ML BAG IVPB SCH (09:32)
[2018-06-06] MEDS: Chlorhexidine Rinse 15 ML MOUTHWASH MM SCH ×2 (09:33→21:46)
[2018-06-06] MEDS: Phenylephrine 50 MG in D5% in Water 250 ML IVC SCH ×2 (10:24→16:24)
[2018-06-06] MEDS ORDERED: D10% in Water 500 ML IVC PRN (11:04)
--- NOTE | 2018-06-06 11:43 | Infectious Disease Progress No ---
Date of Encounter: 06/06/18 Time of Encounter: 09:00 - Assessment and Plan (1) Severe sepsis Current Visit: Yes Status: Acute The patient had 3 sepsis criteria on admission. Likely secondary to bacteremia and intra-abdominal abscess. New onset likely secondary to recent surgery. Improved. Tachycardia and tachypnea and leukocytosis have resolved initially, but the patient is now tachycardic, febrile, and hypotensive requiring vasopressors and with leukocytosis. Blood cultures obtained 06/02/18 her +1 out of 2 sets for Escherichia coli per PCR. Repeat blood cultures drawn 06/04/18 are NGTD 2 sets. Repeat blood cultures drawn 06/06/18 are pending x 2 sets. Lactic acid 1.8. Iv fluid resuscitation per the primary and surgery teams. (2) Bacteremia due to Gram-negative bacteria Current Visit: Yes Status: Acute Causative organism: Escherichia coli per PCR. Source likely intra-abdominal abscess. Blood cultures obtained 06/02/18 are +1 out of 2 sets for Escherichia coli per PCR. Repeat blood cultures 06/04/18 are NGTD 2 sets. Repeat blood cultures 06/06/18 are pending x 2 sets. Continue Zosyn 3.375 g IV every 8 hours. Duration of treatment depends on the clinical picture. Monitor renal function and a productive toxicity and dose adjust antibiotics. (3) Intra-abdominal abscess Current Visit: No Status: Acute Likely secondary to perforated viscus. Causative organism E. coli. POD #4 Status post exploratory laparotomy, drainage of intra-abdominal abscess. 06/02/[address] Maria. Operative note was reviewed. Gross purulence noted and dropped, but no succus, bile, or staining was seen in the abdominal cavity. Continue Zosyn 3.375 g IV every 8 hours for now. Continue fluconazole 200mg IV daily. Dose-adjust antibiotics based on creatinine clearance. Duration of treatment depends on the clinical picture. Wound care and activity restrictions per the surgery team. (4) Perforated abdominal viscus Current Visit: No Status: Acute Initially was thought to likely be secondary to NSAID use. Concern that this perforation may be secondary to the patch they placed previously was laying under pocket of pus which kept irritating it and cause perforation again. POD #1 status post exp lap with antrectomy, closure of duodenal stump, and Gerri en Y. Continue Zosyn as stated above. Continue fluconazole 200 mg IV daily. Duration of treatment depends on the clinical picture. Monitor renal and liver function and dose-adjust antibiotics. (5) Acute on chronic renal failure Current Visit: Yes Status: Resolved Likely secondary to severe sepsis. Improved. Continue to trend. Dose adjust antibiotics based on creatinine clearance. Avoid nephrotoxins as able. Qualifiers: Acute renal failure type: unspecified Chronic kidney disease stage: unspecified stage Qualified Code(s): N17.9 - Acute kidney failure, unspecified ; N18.9 - Chronic kidney disease, unspecified (6) Pneumoperitoneum Current Visit: Yes Status: Acute Secondary to perforated viscus. Further management per the general surgery team. (7) Allergy to multiple antibiotics Current Visit: Yes Status: Acute (8) VRE (vancomycin-resistant Enterococci) Current Visit: No Status: Inactive Patient has a history of VRE in the urine. Continue contact precautions per hospital protocol. - Subjective Interval history: Patient seen and examined. Status post exp lap with antrectomy, closure of duodenal stump, and gerri en Y reconstruction 06/05/18 . Patient currently intubated and sedated on the ventilator. Sedation increased so patient not responsive. Currently on Kendall for pressure support. Infect Dis PN-Objective Data - Labs CBC & Chem 7: 06/06/18 11:30 06/06/18 13:30 Labs: Laboratory Results - last 24 hr 06/05/18 06/05/18 06/05/18 06:18 11:27 15:50 WBC RBC Hgb Hct MCV MCH MCHC RDW Plt Count MPV Seg Neutrophils % Lymphocytes % Neutrophils # Lymphocytes # Nucleated RBCs/100 WBC Platelet Estimate Sample Site ABG pH ABG pCO2 ABG pO2 ABG HCO3 ABG Total CO2 ABG O2 Saturation ABG Base Excess Jaun Test Respiration Rate O2 Delivery Device Blood Gas Modality Inspired O2 Tidal Volume PEEP Sodium Potassium Chloride Carbon Dioxide BUN Creatinine Est GFR ( Amer) Est GFR (Non-Af Amer) BUN/Creatinine Ratio Glucose POC Glucose 148 H 139 H Calculated Osmolality Lactic Acid Calcium Venous Ioniz Calcium Phosphorus Magnesium Total Bilirubin Direct Bilirubin Indirect Bilirubin AST ALT Alkaline Phosphatase Serum Total Protein Albumin Globulin Albumin/Globulin Ratio Blood Type O POSITIVE Antibody Screen NEGATIVE 06/05/18 06/05/18 06/05/18 18:47 19:55 19:55 WBC RBC Hgb 11.2 L D Hct 36.2 L MCV MCH MCHC RDW Plt Count MPV Seg Neutrophils % Lymphocytes % Neutrophils # Lymphocytes # Nucleated RBCs/100 WBC Platelet Estimate Sample Site ABG pH ABG pCO2 ABG pO2 ABG HCO3 ABG Total CO2 ABG O2 Saturation ABG Base Excess Jaun Test Respiration Rate O2 Delivery Device Blood Gas Modality Inspired O2 Tidal Volume PEEP Sodium 138 Potassium 4.8 D Chloride 107 Carbon Dioxide 24 BUN 21 H Creatinine 1.04 Est GFR ( Amer) > 60 Est GFR (Non-Af Amer) > 60 BUN/Creatinine Ratio 20 Glucose 252 H POC Glucose 192 H Calculated Osmolality 298 Lactic Acid Calcium 8.7 Venous Ioniz Calcium Phosphorus 5.7 H Magnesium 2.0 Total Bilirubin Direct Bilirubin Indirect Bilirubin AST ALT Alkaline Phosphatase Serum Total Protein Albumin Globulin Albumin/Globulin Ratio Blood Type Antibody Screen 06/05/18 06/05/18 06/06/18 20:04 23:32 00:30 WBC RBC Hgb Hct MCV MCH MCHC RDW Plt Count MPV Seg Neutrophils % Lymphocytes % Neutrophils # Lymphocytes # Nucleated RBCs/100 WBC Platelet Estimate Sample Site ABG pH ABG pCO2 ABG pO2 ABG HCO3 ABG Total CO2 ABG O2 Saturation ABG Base Excess Jaun Test Respiration Rate O2 Delivery Device Blood Gas Modality Inspired O2 Tidal Volume PEEP Sodium Potassium Chloride Carbon Dioxide BUN Creatinine Est GFR ( Amer) Est GFR (Non-Af Amer) BUN/Creatinine Ratio Glucose POC Glucose 191 H Calculated Osmolality Lactic Acid 1.7 Calcium Venous Ioniz Calcium 1.17 Phosphorus Magnesium Total Bilirubin Direct Bilirubin Indirect Bilirubin AST ALT Alkaline Phosphatase Serum Total Protein Albumin Globulin Albumin/Globulin Ratio Blood Type Antibody Screen 06/06/18 06/06/18 06/06/18 02:10 02:10 02:10 WBC 17.2 H D RBC 3.48 L Hgb 9.4 L D Hct 30.6 L MCV 87.9 MCH 27.0 L MCHC 30.7 L RDW 15.3 H Plt Count 230 MPV 9.8 Seg Neutrophils % 94.0 Lymphocytes % 6.0 Neutrophils # 16.2 H Lymphocytes # 1.0 Nucleated RBCs/100 WBC 0.2 H Platelet Estimate Normal Sample Site ABG pH ABG pCO2 ABG pO2 ABG HCO3 ABG Total CO2 ABG O2 Saturation ABG Base Excess Jaun Test Respiration Rate O2 Delivery Device Blood Gas Modality Inspired O2 Tidal Volume PEEP Sodium 136 Potassium 4.9 Chloride 111 H Carbon Dioxide 21 L BUN 25 H Creatinine 1.04 Est GFR ( Amer) > 60 Est GFR (Non-Af Amer) > 60 BUN/Creatinine Ratio 24 Glucose 207 H POC Glucose Calculated Osmolality 292 Lactic Acid 1.8 Calcium 7.6 L Venous Ioniz Calcium Phosphorus 4.6 H Magnesium 1.8 Total Bilirubin 0.5 Direct Bilirubin 0.4 H Indirect Bilirubin 0.1 AST 24 ALT 28 Alkaline Phosphatase 63 Serum Total Protein 4.4 L Albumin 2.4 L Globulin 2.0 L Albumin/Globulin Ratio 1.2 Blood Type Antibody Screen 06/06/18 06/06/18 02:32 04:54 WBC RBC Hgb Hct MCV MCH MCHC RDW Plt Count MPV Seg Neutrophils % Lymphocytes % Neutrophils # Lymphocytes # Nucleated RBCs/100 WBC Platelet Estimate Sample Site L Radial ABG pH 7.33 ABG pCO2 38 ABG pO2 104 ABG HCO3 20 L ABG Total CO2 21 ABG O2 Saturation 98 ABG Base Excess -5 L Jaun Test N/A Respiration Rate 14 O2 Delivery Device Adult Vent Blood Gas Modality VC Inspired O2 30.0 Tidal Volume 500 PEEP 5 Sodium Potassium Chloride Carbon Dioxide BUN Creatinine Est GFR ( Amer) Est GFR (Non-Af Amer) BUN/Creatinine Ratio Glucose POC Glucose Calculated Osmolality Lactic Acid Calcium Venous Ioniz Calcium 1.11 L Phosphorus Magnesium Total Bilirubin Direct Bilirubin Indirect Bilirubin AST ALT Alkaline Phosphatase Serum Total Protein Albumin Globulin Albumin/Globulin Ratio Blood Type Antibody Screen Cultures: Cultures 06/06/18 03:35 Blood Culture - Preliminary Peripheral Venipuncture Culture is incubating and being continuously monitored for growth. Final report to follow. 06/06/18 01:42 Blood Culture - Preliminary Peripheral Venipuncture Culture is incubating and being continuously monitored for growth. Final report to follow. 06/02/18 20:12 Anaerobic Culture - Preliminary Peritoneal Fluid At this time, no anaerobic growth is present. The culture will be finalized after 5 days of incubation. 06/02/18 20:12 Body Fluid Culture - Final Peritoneal Fluid Escherichia coli 06/04/18 09:12 Blood Culture - Preliminary Peripheral Venipuncture Culture is incubating and being continuously monitored for growth. Final report to follow. 06/04/18 09:10 Blood Culture - Preliminary Peripheral Venipuncture Culture is incubating and being continuously monitored for growth. Final report to follow. - Impressions Impressions KUB X-Ray 06/06/18 00:00 IMPRESSION: Enteric tube tip and side port project over the stomach. D/ / Karena Mcadams MD / Karena Mcadams MD Interpreting Provider: Karena Mcadams MD Chest X-Ray 06/06/18 07:23 IMPRESSION: 1. Endotracheal tube tip is approximately 3.5 cm above the bobbi. 2. Enteric tube has been advanced with the side port projecting over the stomach. 3. Right basilar atelectasis. D/ / Karena Mcadams MD / Karena Mcadams MD Interpreting Provider: Karena Mcadams MD Exam - Constitutional Vitals: Temp Pulse Resp BP Pulse Ox 100.6 F H 120 17 80/45 98 06/06/18 07:15 06/06/18 11:00 06/06/18 11:09 06/06/18 11:09 06/06/18 11:09 General appearance: no acute distress, obese, no febrile - Head Head exam: Present: atraumatic, normal inspection, normocephalic - Eye Eye exam: Present: normal appearance, PERRL Pupils: Present: normal accommodation - ENT ENT exam: Present: mucous membranes moist - Neck Neck exam: Present: normal inspection - Respiratory Respiratory exam: Present: CTAB. Absent: rales, respiratory distress, rhonchi, wheezes - Cardiovascular Cardiovascular exam: Present: +S1, +S2, tachycardia. Absent: irregular rhythm - GI/Abdominal GI/Abdominal exam: Present: distended (obese), hypoactive bowel sounds, soft. Absent: tenderness Additional comments: Midline abdominal incision with moderate shadow drainage noted to the dressing. SARBJIT drain noted to the left abdomen with small amount of bilious drainage noted. SARBJIT drain noted to the right abdomen with small amount of serosanguinous drainage noted. Machado catheter noted to be draining clear yellow urine. - Extremities Exam Extremities exam: Present: normal inspection. Absent: joint swelling, pedal edema, tenderness - Neurological Exam Neurological exam: Present: altered (Sedated) - Skin Skin exam: Present: dry, intact, pallor. Absent: warm - VTE Documentation of Mechanical Device: Intermittent pneumatic compression device Consult Discharge Plan - Plan Referrals: Zafar Hinton MD [Primary Care Provider] - - Attending Attestation I examined this patient and my medical decision-making was reviewed with the Resident Physician. I agree with the documented findings, disposition and treatment plan as described except to the extent set forth below.
[2018-06-06 14:15] LABS: Hemoglobin 7.9 g/dL (12.9-16.9); Lymphocytes # 1.8 K/mcL (0.6-4.6); Mean Corpuscular HGB Conc 30.4 g/dL (31.6-35.5); Mean Corpuscular Hemoglobin 26.8 pg (28.0-33.3); Mean Corpuscular Volume 88.1 fL (83.0-100.0); Mean Platelet Volume 9.8 fL (9.4-12.4); Nucleated Red Blood Cells 0.5 /100 WBC (0); Platelet Count 225 K/mcL (140-400); Red Blood Count 2.95 M/mcL (4.19-5.50); Red Cell Distribution Width 15.4 % (11.5-14.5)
[2018-06-06] MEDS: Albumin 25% 25gram/100mL 25 GM/100 ML IV.SOLN IVPB SCH ×3 (14:17→23:19)
[2018-06-06 15:07] LABS: Monocytes # 0.9 K/mcL (0.0-1.3); Neutrophils # 19.5 K/mcL (1.6-8.9); Platelet Estimate Normal (Normal)
[2018-06-06 15:11] LABS: INR 1.2; Prothrombin Time 13.4 Seconds (9.4-12.1)
[2018-06-06 15:30] LABS: Calcium 7.8 mg/dL (8.6-10.3); Potassium 4.8 mEq/L (3.5-5.1)
[2018-06-06] MEDS ORDERED: Piperacillin/Tazobactam 3.375 GM VIAL ONE (15:49)
[2018-06-06] MEDS: FentaNYL (PF) 2,500 MCG in EMPTY BAG 1 EACH IVC SCH ×2 (16:19→23:42)
[2018-06-06] MEDS ORDERED: [UNRECOGNIZED DRUG - OTHER] IVC SCH (17:00)
[2018-06-06] MEDS ORDERED: CLINIMIX E IVC SCH (17:00)
[2018-06-06] MEDS ORDERED: PARENTERAL AMINO ACID 10% IVC SCH (17:00)
[2018-06-06] MEDS ORDERED: MVI IVC SCH (17:00)
[2018-06-06 18:11] LABS: Hematocrit 24.3 % (37.5-50.1); Hemoglobin 7.6 g/dL (12.9-16.9)
[2018-06-07] MEDS: Phenylephrine 50 MG in D5% in Water 250 ML IVC SCH (00:56)
[2018-06-07 03:41] LABS: Hematocrit 21.3 % (37.5-50.1); Hemoglobin 6.4 g/dL (12.9-16.9); Mean Corpuscular Hemoglobin 26.6 pg (28.0-33.3); Mean Corpuscular Volume 88.4 fL (83.0-100.0); Mean Platelet Volume 9.5 fL (9.4-12.4); Monocytes # 0.7 K/mcL (0.0-1.3); Nucleated Red Blood Cells 0.1 /100 WBC (0); Platelet Count 150 K/mcL (140-400); Red Blood Count 2.41 M/mcL (4.19-5.50); Red Cell Distribution Width 15.4 % (11.5-14.5)
[2018-06-07] MEDS: Artificial Tears SOLN 15 ML BOTTLE BOTH EYES SCH ×6 (03:55→23:43)
[2018-06-07 03:58] LABS: Albumin 2.9 g/dL (3.5-5.7); Albumin/Globulin Ratio 1.6 (1.1-2.2); Bilirubin,Total 0.7 mg/dL (0.3-1.0); Calcium 7.9 mg/dL (8.6-10.3); Globulin 1.8 g/dL (2.4-3.5); Potassium 4.8 mEq/L (3.5-5.1); Total Protein 4.7 g/dL (6.4-8.9)
[2018-06-07] MEDS ORDERED: 0.9 % Sodium Chloride 250 ML ONE (04:23)
[2018-06-07] MEDS: Pantoprazole 40 MG in 0.9 % Sodium Chloride Mini Bag 100 ML IVC SCH ×5 (04:30→20:01)
[2018-06-07 04:51] LABS: Phosphorous 5.9 mg/dL (2.7-4.5)
[2018-06-07] MEDS: *HR* Heparin 5,000 UNIT/ML VIAL SQ SCH ×3 (05:08→20:53)
[2018-06-07] MEDS: Insulin LISPRO 300 UNITS/3 ML VIAL SQ SCH ×5 (05:09→23:52)
[2018-06-07] MEDS: Albumin 25% 25gram/100mL 25 GM/100 ML IV.SOLN IVPB SCH ×2 (05:11→12:20)
[2018-06-07 05:43] LABS: Lymphocytes # 0.7 K/mcL (0.6-4.6); Neutrophils # 16.1 K/mcL (1.6-8.9)
[2018-06-07 05:44] LABS: Large Platelets Present (Not Present); Platelet Estimate Normal (Normal)
--- NOTE | 2018-06-07 06:56 | Pulmonology Progress Note ---
<StephanieKota W - Last Filed: 06/07/18 09:40> Date of Encounter: 06/07/18 Objective PUL Vital signs: Last Vital Signs Temp 99.8 F H 06/07/18 07:33 Pulse 104 06/07/18 08:00 Resp 16 06/07/18 08:00 BP 107/60 06/07/18 08:00 Pulse Ox 98 06/07/18 08:00 Ventilator Settings Ventilator Settings: Ventilator Settings, Last 8 Hours Ventilator Tidal Volume 470 Setting Ventilator Tidal Volume 470 Setting Ventilator Tidal Volume 470 Setting Ventilator Tidal Volume 470 Setting Ventilator Tidal Volume 470 Setting Ventilator Tidal Volume 470 Setting Ventilator Tidal Volume 470 Setting Ventilator Tidal Volume 470 Setting Ventilator Tidal Volume 470 Setting Ventilator Tidal Volume 470 Setting Ventilator Tidal Volume 470 Setting Ventilator Tidal Volume 470 Setting Ventilator Respiratory Rate 14 Setting Ventilator Respiratory Rate 14 Setting Ventilator Respiratory Rate 14 Setting Ventilator Respiratory Rate 14 Setting Ventilator Respiratory Rate 14 Setting Ventilator Respiratory Rate 14 Setting Ventilator Respiratory Rate 14 Setting Ventilator Respiratory Rate 14 Setting Ventilator Respiratory Rate 14 Setting Ventilator Respiratory Rate 14 Setting Ventilator Respiratory Rate 14 Setting Ventilator Respiratory Rate 14 Setting Actual Respiratory Rate 15 Actual Respiratory Rate 17 Actual Respiratory Rate 17 Actual Respiratory Rate 16 Actual Respiratory Rate 17 Actual Respiratory Rate 15 Actual Respiratory Rate 15 Actual Respiratory Rate 15 Actual Respiratory Rate 15 Actual Respiratory Rate 17 Actual Respiratory Rate 14 Positive End Expiratory 5 Pressure Positive End Expiratory 5 Pressure Positive End Expiratory 5 Pressure Positive End Expiratory 5 Pressure Positive End Expiratory 5 Pressure Positive End Expiratory 5 Pressure Positive End Expiratory 5 Pressure Positive End Expiratory 5 Pressure Positive End Expiratory 5 Pressure Positive End Expiratory 5 Pressure Positive End Expiratory 5 Pressure Positive End Expiratory 5 Pressure Peak Inspiratory Airway 8 Pressure Peak Inspiratory Airway 12 Pressure Peak Inspiratory Airway 8.9 Pressure Peak Inspiratory Airway 11 Pressure Peak Inspiratory Airway 11 Pressure Peak Inspiratory Airway 12 Pressure Peak Inspiratory Airway 14 Pressure Peak Inspiratory Airway 11 Pressure Peak Inspiratory Airway 13 Pressure Peak Inspiratory Airway 15 Pressure Peak Inspiratory Airway 8.5 Pressure Results - Laboratory Findings CBC and BMP: 06/07/18 03:30 06/07/18 03:30 ABG ABG pH 7.23 pH Units (7.32-7.45) L 06/07/18 07:16 ABG pCO2 45 mmHg (35-45) 06/07/18 07:16 ABG pO2 97 mmHg (85-104) 06/07/18 07:16 ABG O2 Saturation 96 % (95-98) 06/07/18 07:16 PT/INR, D-dimer PT 15.1 Seconds (9.4-12.1) H 06/07/18 06:49 Abnormal lab findings: Abnormal lab results WBC 17.5 K/mcL (4.3-11.1) H 06/07/18 03:30 RBC 2.41 M/mcL (4.19-5.50) L 06/07/18 03:30 Hgb 6.4 g/dL (12.9-16.9) L 06/07/18 03:30 Hct 21.3 % (37.5-50.1) L 06/07/18 03:30 MCH 26.6 pg (28.0-33.3) L 06/07/18 03:30 MCHC 30.0 g/dL (31.6-35.5) L 06/07/18 03:30 RDW 15.4 % (11.5-14.5) H 06/07/18 03:30 Neutrophils # 16.1 K/mcL (1.6-8.9) H 06/07/18 03:30 Nucleated RBCs/100 WBC 0.1 /100 WBC (0) H 06/07/18 03:30 Large Platelets Present (Not Present) A 06/07/18 03:30 PT 15.1 Seconds (9.4-12.1) H 06/07/18 06:49 ABG pH 7.23 pH Units (7.32-7.45) L 06/07/18 07:16 ABG HCO3 19 mEq/L (21-27) L 06/07/18 07:16 ABG Base Excess -8 mEq/L (-2 to 3) L 06/07/18 07:16 Sodium 132 mEq/L (136-145) L 06/07/18 03:30 Carbon Dioxide 19 mEq/L (23-29) L 06/07/18 03:30 BUN 39 mg/dL (6-20) H 06/07/18 03:30 Creatinine 1.78 mg/dL (0.70-1.30) H 06/07/18 03:30 Est GFR ( Amer) 49 (> 60) L 06/07/18 03:30 Est GFR (Non-Af Amer) 40 (> 60) L 06/07/18 03:30 Glucose 229 mg/dL (70-105) H 06/07/18 03:30 POC Glucose 205 mg/dL (70-99) H 06/06/18 23:31 Calcium 7.9 mg/dL (8.6-10.3) L 06/07/18 03:30 Venous Ioniz Calcium 1.11 mmol/L (1.15-1.35) L 06/06/18 02:32 Phosphorus 5.9 mg/dL (2.7-4.5) H 06/07/18 03:30 Direct Bilirubin 0.4 mg/dL (0.0-0.2) H 06/06/18 02:10 AST 9 Units/L (13-39) L 06/07/18 03:30 Creatine Kinase 11 Units/L (30-223) L 06/02/18 17:29 Serum Total Protein 4.7 g/dL (6.4-8.9) L 06/07/18 03:30 Albumin 2.9 g/dL (3.5-5.7) L 06/07/18 03:30 Globulin 1.8 g/dL (2.4-3.5) L 06/07/18 03:30 Triglycerides 332 mg/dL (< 150) H 06/04/18 05:02 Gastrin 117 pg/mL (0-100) H 06/03/18 21:23 Urine Clarity Cloudy (Clear) A 06/02/18 09:18 Urine Protein 100 mg/dL (Neg-Trace) H 06/02/18 09:18 Urine Blood Large (Negative) H 06/02/18 09:18 Ur Leukocyte Esterase Moderate (Negative) H 06/02/18 09:18 Urine Microscopic RBC TNTC per hpf (0-3) H 06/02/18 09:18 Urine Microscopic WBC 15-30 per hpf (0-3) H 06/02/18 09:18 Ur Squamous Epith Cells Many per lpf (None-Few) H 06/02/18 09:18 Ur Culture Indicated? NO. (NO) A 06/02/18 09:18 Enterobacteriac sp PCR DETECTED (Not Detect) A 06/02/18 09:18 E. coli (PCR) DETECTED (Not Detect) A 06/02/18 09:18 - Microbiology Findings Microbiology Findings: Microbiology, Last 48 Hours 06/07/18 03:48 Sputum Culture - Final Sputum 06/06/18 03:35 Blood Culture - Preliminary Peripheral Venipuncture Culture is incubating and being continuously monitored for growth. Final report to follow. 06/06/18 01:42 Blood Culture - Preliminary Peripheral Venipuncture Culture is incubating and being continuously monitored for growth. Final report to follow. 06/02/18 20:12 Anaerobic Culture - Preliminary Peritoneal Fluid At this time, no anaerobic growth is present. The culture will be finalized after 5 days of incubation. 06/02/18 20:12 Body Fluid Culture - Final Peritoneal Fluid Escherichia coli - Clinical Findings Intake & Output: Intake & Output 06/06/18 06/07/18 06/07/18 23:59 07:59 15:59 Intake Total 3521 / 3521 943.4 / 943.4 Output Total 915 / 915 445 / 445 Balance 2606 / 2606 498.4 / 498.4 Weight 109.4 kg Consult Discharge Plan - Plan Referrals: Zafar Hinton MD [Primary Care Provider] - - Attending Attestation I examined this patient and my medical decision-making was reviewed with the Resident Physician. I agree with the documented findings, disposition and treatment plan as described except to the extent set forth below. We independently had [id number] contact with the patient I spent 33min of Critical Care time with this patient. It involved decision making of high complexity to assess, manipulate, and support vital organ system failure and/or to prevent further life threatening deterioration of the patient' s condition. The time involved in the performance of separately reportable procedures was not counted toward critical care time. Patient seen and examined at bedside Labs, radiology, chart personally reviewed. Management was reviewed during multidisciplinary critical care rounds. [employer]: Patient is deeply sedated plan for sedation holiday today to assess neurological status. In general plan to decrease the sedation for goal Artemio scale of approximately 3 today Pulm: Patient has acute respiratory failure and is on the vent mild resp acidosis increasing MV (RR increased). He is not a candidate for spontaneous breathing trial at this time because of critical illness but we will continue to assess this daily Cards: Remains on vasopressor support but blood pressure is improving and tachycardia is resolving generally appears to be moving in a positive trajectory from the standpoint septic shock. GI: Continue PPI infusion. He is postop day 2 status post Gerri-en-Y procedure for duodenal ulceration appreciate Gen Surgery managing this aspect Nutrition: Cont TPN per dietary recs Renal: Worsening MEtabolic acidosis s/t CAROL s/t hypotension. Non Oliguric. UOP Monitored, Cont to Trend sCr and monitor Electrolytes. ID: Ecoli bateremia s/t to intraabdominal infection. WBC trending down today. Heme/Onc: Acute bloss loss anemia s/p surgery. H/H today < 7 transufsing 2u PRBCs. Suspect intraabdominal source. D/w surgery regarding re-CT of patients abdomen which will likely be necessary if he does not increment appropriately after transfusion DVT prophylaxis given Endo: Glucose Monitored Integ/MSK: Skin Care per routine ICU Nursing Protocol to prevent ulcers. Lines: All lines examined without evidence of infection : Dispo: Remain in ICU for critical illness CODE: Full Code updated at bedside. <Nathaniel Kumar T - Last Filed: 06/07/18 12:38> Date of Encounter: 06/07/18 Time of Encounter: 07:00 Assessment and Plan (1) Septic shock due to Escherichia coli Current Visit: Yes Status: Acute Most likely 2/2 intraabdominal abscess with purulant fluid collections. 1/2 initial blood cultures pos E coli. Initial body fluid culture pos E coli. Remains intubated and sedated. Will decrease sedation some today to goal artemio of 3. Required phenylephrine since return from OR 2 days ago. BP stable ~115/ 60. Still tachycardic ~110, down some from yesterday 120's. Lactic 1.8 yst down from 5.1 high. ABG showing non gap metabolic acidosis ph 7.23, paco2 45, po2 97. He is overbreathing vent, will increase RR from 14-18 and recheck ABG in the afternoon. T max last 24 hours 101.3. WBC 17.5 down from 22 yesterday, likely reactive 2/2 surgery. Will continue zosyn as blood culture and fluid culture sensitive. Deescalate as allowed. ID following. Will decrease phenylephrine today and monitor. Repeat blood cultures pending. Will repeat lactic now. (2) Bacteremia due to Gram-negative bacteria Current Visit: Yes Status: Acute Initial blood culture pos for E coli 1/2. sensitive to pip/tazo which he is on, resistant to ampicillin, amp/sulbactam. ID on board. Will continue current abx, deescalate as allowed and repeat blood cultures not resulted yet. (3) Acute on chronic renal failure Current Visit: Yes Status: Resolved Cr up to 1.78 from 1.04 yst. Complicated with a non gap metabolic acidosis now. Will trend Cr, avoid nephrotoxins, and monitor electrolytes replacing as needed. Qualifiers: Acute renal failure type: unspecified Chronic kidney disease stage: unspecified stage Qualified Code(s): N17.9 - Acute kidney failure, unspecified ; N18.9 - Chronic kidney disease, unspecified (4) Perforated viscus Current Visit: Yes Status: Acute S/p exlap, washout, gerri-en-y. Surg following. (5) Lactic acidosis Current Visit: Yes Status: Acute Lactic had high of 5.1, was down to 1.2 and slightly up to 1.8 yesterday. Metabolic acidosis on ABG today. Will order lactic now. (6) Anemia Current Visit: No Status: Acute Hgb 6.4 this morning, down from 9.4 yesterday. 2 units PRBC infusing now. Will recheck CBC after. Qualifiers: Anemia type: other cause Other causes of anemia: other cause, not classified Qualified Code(s): D64.89 - Other specified anemias (7) Diabetes Current Visit: Yes Status: Chronic Hx of DM. On TPN, SSI on high corrective. TPN increased to higher dextrose today. Will add levemir 10 units BID. Qualifiers: Diabetes mellitus type: type 2 Diabetes mellitus lobsterman insulin use: without lobsterman use Diabetes mellitus complication status: with hyperglycemia Qualified Code(s): E11.65 - Type 2 diabetes mellitus with hyperglycemia (8) VRE (vancomycin-resistant Enterococci) Current Visit: No Status: Inactive Hx of VRE in urine. Treated with outpatient abx with ID. On contact precautions. (9) Obesity (BMI 30.0-34.9) Current Visit: Yes Status: Chronic BMI 34.6. Will recommend lifestyle modifications upon dc. (10) DVT prophylaxis Current Visit: Yes Status: Acute Heparin prophylaxis Subjective Principal diagnosis: Septic shock Interval history: Intubated and sedated. Hemoglobin dropped overnight to 6.4 and blood transfusion started. T max overnight Objective PUL Vital signs: Last Vital Signs Temp 99.4 F 06/07/18 05:54 Pulse 100 06/07/18 06:00 Resp 17 06/07/18 06:00 BP 105/57 06/07/18 06:00 Pulse Ox 98 06/07/18 06:00 General appearance: no acute distress, other (intubated and sedated. Diaphoretic. ) Eyes: nonicteric, other (Pinpoint pupils, equal reactive to light and accomidation ) ENT: oropharynx dry (Intubated) Auscultation: bilateral: diminished breath sounds (R basilar>L) Cardiovascular: other (tachycardic) Gastrointestinal: soft, non-tender, other ([address], serosanguinous output, incisions bandaged ) Integumentary: other (Diaphoretic ) Extremities: no cyanosis, no edema other (Intubated and sedated ) Ventilator Settings Ventilator Settings: Ventilator Settings, Last 8 Hours Ventilator Tidal Volume 470 Setting Ventilator Tidal Volume 470 Setting Ventilator Tidal Volume 470 Setting Ventilator Tidal Volume 470 Setting Ventilator Tidal Volume 470 Setting Ventilator Tidal Volume 470 Setting Ventilator Tidal Volume 470 Setting Ventilator Tidal Volume 470 Setting Ventilator Tidal Volume 470 Setting Ventilator Tidal Volume 470 Setting Ventilator Tidal Volume 470 Setting Ventilator Tidal Volume 470 Setting Ventilator Respiratory Rate 14 Setting Ventilator Respiratory Rate 14 Setting Ventilator Respiratory Rate 14 Setting Ventilator Respiratory Rate 14 Setting Ventilator Respiratory Rate 14 Setting Ventilator Respiratory Rate 14 Setting Ventilator Respiratory Rate 14 Setting Ventilator Respiratory Rate 14 Setting Ventilator Respiratory Rate 14 Setting Ventilator Respiratory Rate 14 Setting Ventilator Respiratory Rate 14 Setting Ventilator Respiratory Rate 14 Setting Actual Respiratory Rate 17 Actual Respiratory Rate 16 Actual Respiratory Rate 17 Actual Respiratory Rate 15 Actual Respiratory Rate 15 Actual Respiratory Rate 15 Actual Respiratory Rate 15 Actual Respiratory Rate 17 Actual Respiratory Rate 14 Actual Respiratory Rate 15 Actual Respiratory Rate 14 Actual Respiratory Rate 14 Positive End Expiratory 5 Pressure Positive End Expiratory 5 Pressure Positive End Expiratory 5 Pressure Positive End Expiratory 5 Pressure Positive End Expiratory 5 Pressure Positive End Expiratory 5 Pressure Positive End Expiratory 5 Pressure Positive End Expiratory 5 Pressure Positive End Expiratory 5 Pressure Positive End Expiratory 5 Pressure Positive End Expiratory 5 Pressure Positive End Expiratory 5 Pressure Peak Inspiratory Airway 8.9 Pressure Peak Inspiratory Airway 11 Pressure Peak Inspiratory Airway 11 Pressure Peak Inspiratory Airway 12 Pressure Peak Inspiratory Airway 14 Pressure Peak Inspiratory Airway 11 Pressure Peak Inspiratory Airway 13 Pressure Peak Inspiratory Airway 15 Pressure Peak Inspiratory Airway 8.5 Pressure Peak Inspiratory Airway 9.5 Pressure Peak Inspiratory Airway 8.8 Pressure Peak Inspiratory Airway 6.9 Pressure Results - Laboratory Findings CBC and BMP: 06/07/18 03:30 06/07/18 03:30 ABG ABG pH 7.33 pH Units (7.32-7.45) 06/06/18 04:54 ABG pCO2 38 mmHg (35-45) 06/06/18 04:54 ABG pO2 104 mmHg (85-104) 06/06/18 04:54 ABG O2 Saturation 98 % (95-98) 06/06/18 04:54 PT/INR, D-dimer PT 13.4 Seconds (9.4-12.1) H 06/06/18 13:30 Abnormal lab findings: Abnormal lab results WBC 17.5 K/mcL (4.3-11.1) H 06/07/18 03:30 RBC 2.41 M/mcL (4.19-5.50) L 06/07/18 03:30 Hgb 6.4 g/dL (12.9-16.9) L 06/07/18 03:30 Hct 21.3 % (37.5-50.1) L 06/07/18 03:30 MCH 26.6 pg (28.0-33.3) L 06/07/18 03:30 MCHC 30.0 g/dL (31.6-35.5) L 06/07/18 03:30 RDW 15.4 % (11.5-14.5) H 06/07/18 03:30 Neutrophils # 16.1 K/mcL (1.6-8.9) H 06/07/18 03:30 Nucleated RBCs/100 WBC 0.1 /100 WBC (0) H 06/07/18 03:30 Large Platelets Present (Not Present) A 06/07/18 03:30 PT 13.4 Seconds (9.4-12.1) H 06/06/18 13:30 ABG HCO3 20 mEq/L (21-27) L 06/06/18 04:54 ABG Base Excess -5 mEq/L (-2 to 3) L 06/06/18 04:54 Sodium 132 mEq/L (136-145) L 06/07/18 03:30 Carbon Dioxide 19 mEq/L (23-29) L 06/07/18 03:30 BUN 39 mg/dL (6-20) H 06/07/18 03:30 Creatinine 1.78 mg/dL (0.70-1.30) H 06/07/18 03:30 Est GFR ( Amer) 49 (> 60) L 06/07/18 03:30 Est GFR (Non-Af Amer) 40 (> 60) L 06/07/18 03:30 Glucose 229 mg/dL (70-105) H 06/07/18 03:30 POC Glucose 205 mg/dL (70-99) H 06/06/18 23:31 Calcium 7.9 mg/dL (8.6-10.3) L 06/07/18 03:30 Venous Ioniz Calcium 1.11 mmol/L (1.15-1.35) L 06/06/18 02:32 Phosphorus 5.9 mg/dL (2.7-4.5) H 06/07/18 03:30 Direct Bilirubin 0.4 mg/dL (0.0-0.2) H 06/06/18 02:10 AST 9 Units/L (13-39) L 06/07/18 03:30 Creatine Kinase 11 Units/L (30-223) L 06/02/18 17:29 Serum Total Protein 4.7 g/dL (6.4-8.9) L 06/07/18 03:30 Albumin 2.9 g/dL (3.5-5.7) L 06/07/18 03:30 Globulin 1.8 g/dL (2.4-3.5) L 06/07/18 03:30 Triglycerides 332 mg/dL (< 150) H 06/04/18 05:02 Gastrin 117 pg/mL (0-100) H 06/03/18 21:23 Urine Clarity Cloudy (Clear) A 06/02/18 09:18 Urine Protein 100 mg/dL (Neg-Trace) H 06/02/18 09:18 Urine Blood Large (Negative) H 06/02/18 09:18 Ur Leukocyte Esterase Moderate (Negative) H 06/02/18 09:18 Urine Microscopic RBC TNTC per hpf (0-3) H 06/02/18 09:18 Urine Microscopic WBC 15-30 per hpf (0-3) H 06/02/18 09:18 Ur Squamous Epith Cells Many per lpf (None-Few) H 06/02/18 09:18 Ur Culture Indicated? NO. (NO) A 09/03/18 09:18 Enterobacteriac sp PCR DETECTED (Not Detect) A 06/02/18 09:18 E. coli (PCR) DETECTED (Not Detect) A 06/02/18 09:18 - Microbiology Findings Microbiology Findings: Microbiology, Last 48 Hours 06/07/18 03:48 Sputum Culture - Final Sputum 06/06/18 03:35 Blood Culture - Preliminary Peripheral Venipuncture Culture is incubating and being continuously monitored for growth. Final report to follow. 06/06/18 01:42 Blood Culture - Preliminary Peripheral Venipuncture Culture is incubating and being continuously monitored for growth. Final report to follow. 06/02/18 20:12 Anaerobic Culture - Preliminary Peritoneal Fluid At this time, no anaerobic growth is present. The culture will be finalized after 5 days of incubation. 06/02/18 20:12 Body Fluid Culture - Final Peritoneal Fluid Escherichia coli - Clinical Findings Intake & Output: Intake & Output 06/06/18 06/06/18 06/07/18 15:59 23:59 07:59 Intake Total 900 / 900 3521 / 3521 943.4 / 943.4 Output Total 275 / 275 915 / 915 250 / 250 Balance 625 / 625 2606 / 2606 693.4 / 693.4 Weight 109.4 kg - VTE Documentation of Mechanical Device: Intermittent pneumatic compression device
[2018-06-07 06:59] LABS: INR 1.3; Prothrombin Time 15.1 Seconds (9.4-12.1)
[2018-06-07 07:22] LABS: ABG Base Excess -8 mEq/L (-2 to 3); ABG HCO3 19 mEq/L (21-27); ABG Oxygen Saturation 96 % (95-98); ABG PCO2 45 mmHg (35-45); ABG PH 7.23 pH Units (7.32-7.45); ABG PO2 97 mmHg (85-104); ABG TCO2 20 mEq/L (20-26); Blood Gas Modality AF; Blood Gas PEEP 5 cm H2O; Blood Gas Respiration Rate 15; Blood Gas VT 470 cc
[2018-06-07] MEDS: Fluconazole 200 MG/100 ML 200 MG/100 ML BAG IVPB SCH (08:53)
[2018-06-07] MEDS: Chlorhexidine Rinse 15 ML MOUTHWASH MM SCH ×2 (08:54→20:03)
[2018-06-07] MEDS: Piperacillin/Tazobactam 3.375 GM in 0.9 % Sodium Chloride Mini Bag 100 ML IVPB SCH ×3 (08:54→23:42)
[2018-06-07] MEDS ORDERED: D10% in Water 500 ML IVC PRN (09:45)
[2018-06-07] MEDS: Insulin DETEMIR 100 UNIT/ML X5UNITS SQ SCH ×2 (12:19→20:02)
[2018-06-07 14:20] LABS: Basophils % 0.1 %; Eosinophils # 0.1 K/mcL (0.0-0.6); Hematocrit 22.8 % (37.5-50.1); Hemoglobin 7.3 g/dL (12.9-16.9); Lymphocytes # 0.7 K/mcL (0.6-4.6); Lymphocytes % 5.4 %; Mean Corpuscular Hemoglobin 28.7 pg (28.0-33.3); Mean Corpuscular Volume 89.8 fL (83.0-100.0); Mean Platelet Volume 9.9 fL (9.4-12.4); Monocytes # 0.4 K/mcL (0.0-1.3); Monocytes % 3.4 %; Neutrophils # 10.3 K/mcL (1.6-8.9); Nucleated Red Blood Cells 0.2 /100 WBC (0); Platelet Count 106 K/mcL (140-400); Red Blood Count 2.54 M/mcL (4.19-5.50); Red Cell Distribution Width 15.3 % (11.5-14.5); Segmented Neutrophils % 85.1 %
[2018-06-07 14:24] LABS: ABG Base Excess -10 mEq/L (-2 to 3); ABG HCO3 17 mEq/L (21-27); ABG Oxygen Saturation 96 % (95-98); ABG PCO2 40 mmHg (35-45); ABG PH 7.24 pH Units (7.32-7.45); ABG PO2 97 mmHg (85-104); ABG TCO2 19 mEq/L (20-26); Blood Gas Modality AF; Blood Gas PEEP 5 cm H2O; Blood Gas Respiration Rate 18; Blood Gas VT 470 cc
[2018-06-07 14:40] LABS: Calcium 8.1 mg/dL (8.6-10.3)
--- NOTE | 2018-06-07 15:55 | General Surgery Progress Note ---
<Pedro Ocasio R - Last Filed: 06/07/18 16:12> Date of Encounter: 06/07/18 Time of Encounter: 14:00 - Assessment and Plan (1) Pneumoperitoneum Current Visit: Yes Status: Acute POD #2 s/p exploratory laparotomy, antrectomy, gerri en Y reconstruction with Drs. Serrano and Mary on 06/05/2018 Patient is sedated and intubated. HR 115, Tmax 101.4 (axillary). Hemoglobin 6.4 this AM. Leukocytosis improved On phenylepherine Plan: Continue ICU care Wean vent and pressors as tolerated NG to LIWS IV- fluids IV antibiotics- zosyn TPN Follow repeat labs in a.m. PPI prophylaxis Comfort care and pain management Wound care and drain management (2) Anemia Current Visit: No Status: Acute Morning Hemoglobin 6.4 Transfused by ICU team 2 units PRBCs Monitor H/H for stabilization Qualifiers: Anemia type: other cause Other causes of anemia: other cause, not classified Qualified Code(s): D64.89 - Other specified anemias Subjective Patient reports: other (Patient sedated and intubated) Narrative: Per ICU staff, trying to wean pressors. Denies bed sores. Objective Vital Signs - Last 8 Hours Temp Pulse Resp BP Pulse Ox 06/07/18 15:39 101.4 F H 06/07/18 15:00 115 20 118/56 100 06/07/18 14:00 99.8 F H 115 20 112/55 100 06/07/18 13:35 21 112/55 98 06/07/18 13:00 115 20 110/61 100 06/07/18 12:00 115 20 111/58 60 06/07/18 11:37 99.8 F H 115 20 113/58 60 06/07/18 11:13 21 111/58 99 06/07/18 11:00 112 21 109/61 99 06/07/18 10:00 112 18 113/56 100 06/07/18 09:20 99.6 F 112 20 113/55 100 06/07/18 09:05 99.5 F 110 16 110/61 99 06/07/18 09:00 99.5 F 110 16 110/61 99 06/07/18 08:00 104 16 107/60 98 Intake and Output 06/06/18 06/07/18 06/07/18 23:59 07:59 15:59 Intake Total 3521 / 3521 1043.4 / 1043.4 1030 / 1030 Output Total 915 / 915 445 / 445 750 / 750 Balance 2606 / 2606 598.4 / 598.4 280 / 280 Intake: IV Fluids 3521 / 3521 1043.4 / 1043.4 300 / 300 FentaNYL (PF) 1,000 MCG In 0.9 100 / 100 % Sodium Chloride 80 ML @ 50 MCG/HR 5 mls/hr IVC CONT [facility] Rx #:[id number] FentaNYL (PF) 2,500 MCG In 50 / 50 24.4 / 24.4 Empty Bag 1 Each @ 25 MCG/HR 0. 5 mls/hr IVC CONT [facility] Rx#: [id number] Clinimix E 5%-15% SOLUTION 2, 1999 / 1999 000 ML @ 83.3 mls/hr IVC .Q24H [place] with M.v.i. Adult 10 ml Rx# :[id number] Versed 50 MG In 0.9 % Sodium 100 / 100 90 / 90 Chloride 90 ML @ 2 MG/HR 4 mls/ hr IVC CONT [facility] Rx#:[id number] Protonix 40 MG In 0.9 % Sodium 200 / 200 100 / 100 100 / 100 Chloride (Mini-Bag +) 100 ML @ 20 mls/hr IVC .Q5H [facility] Rx#: [id number] Phenylephrine 50 MG In Dextrose 671 / 671 229 / 229 5% 250 ML @ 40 MCG/MIN 12.24 mls/hr IVC CONT [facility] Rx#: [id number] Diprivan 1,000 mg In 100 ml @ 200 / 200 300 / 300 200 / 200 10 MCG/KG/MIN 6.26 mls/hr IVC . [id number] [place] Rx#:[id number] Flexbumin 25 gm In 100 ml @ 60 100 / 100 200 / 200 mls/hr IVPB Q6H [place] Rx#: [id number] Zosyn 3.375 GM In 0.9 % Sodium 100 / 100 100 / 100 Chloride (Mini-Bag +) 100 ML @ 25 mls/hr IVPB Q8HR [place] Rx#: [id number] Blood Product 0 / 0 730 / 730 Rbcs Leuko Poor As-1 Unit 0 / 0 365 / 365 [id number] Rbcs Leuko Poor As-1 Unit 365 / 365 [id number] Output: Catheter 600 / 600 350 / 350 700 / 700 Gastric Drainage 250 / 250 50 / 50 0 / 0 Wound Drainage 65 / 65 45 / 45 50 / 50 Left Abdomen 25 / 25 5 / 5 10 / 10 Right Abdomen 40 / 40 40 / 40 40 / 40 Other: Weight 109.4 kg Blood Glucose* 205 269 - General physical appearance other (sedated and intubated, unable to assess some components of physical exam to sedation) - Eyes PERRL - ENT normal mucosa, atraumatic, normocephalic - Neck Neck exam: trachea midline - Respiratory clear to auscultation - Cardiovascular Cardiovascular exam: Present: RRR - Abdomen Abdomen: Present: soft, wound (Right SARBJIT drain with bilious drainage 80 mL since midnight. Left SARBJIT Red serous drainage 15 mL since midnight). Absent: bowel sounds present, distended, guarding - Incision Incision: Present: clean and dry, intact - Psychiatric other - Labs 06/07/18 12:00 06/07/18 13:55 Diabetes panel 06/07/18 06/07/18 Range/Units 03:30 13:55 Sodium 132 L 130 L (136-145) mEq/L Potassium 4.8 5.0 (3.5-5.1) mEq/L Chloride 106 104 (98-107) mEq/L Carbon Dioxide 19 L 19 L (23-29) mEq/L BUN 39 H 41 H (6-20) mg/dL Creatinine 1.78 H 1.82 H (0.70-1.30) mg/dL Glucose 229 H 264 H (70-105) mg/dL Calcium 7.9 L 8.1 L (8.6-10.3) mg/dL AST 9 L (13-39) Units/L ALT 11 (7-52) Units/L Alkaline Phosphatase 44 (34-104) Units/L Albumin 2.9 L (3.5-5.7) g/dL Calcium panel 06/07/18 06/07/18 Range/Units 03:30 13:55 Calcium 7.9 L 8.1 L (8.6-10.3) mg/dL Phosphorus 5.9 H (2.7-4.5) mg/dL Albumin 2.9 L (3.5-5.7) g/dL Pituitary panel 06/07/18 06/07/18 Range/Units 03:30 13:55 Sodium 132 L 130 L (136-145) mEq/L Potassium 4.8 5.0 (3.5-5.1) mEq/L Chloride 106 104 (98-107) mEq/L Carbon Dioxide 19 L 19 L (23-29) mEq/L BUN 39 H 41 H (6-20) mg/dL Creatinine 1.78 H 1.82 H (0.70-1.30) mg/dL Glucose 229 H 264 H (70-105) mg/dL Calcium 7.9 L 8.1 L (8.6-10.3) mg/dL Adrenal panel 06/07/18 06/07/18 Range/Units 03:30 13:55 Sodium 132 L 130 L (136-145) mEq/L Potassium 4.8 5.0 (3.5-5.1) mEq/L Chloride 106 104 (98-107) mEq/L Carbon Dioxide 19 L 19 L (23-29) mEq/L BUN 39 H 41 H (6-20) mg/dL Creatinine 1.78 H 1.82 H (0.70-1.30) mg/dL Glucose 229 H 264 H (70-105) mg/dL Calcium 7.9 L 8.1 L (8.6-10.3) mg/dL Total Bilirubin 0.7 (0.3-1.0) mg/dL AST 9 L (13-39) Units/L ALT 11 (7-52) Units/L Alkaline Phosphatase 44 (34-104) Units/L Albumin 2.9 L (3.5-5.7) g/dL - VTE Documentation of Mechanical Device: Intermittent pneumatic compression device Consult Discharge Plan - Plan Referrals: Zafar Hinton MD [Primary Care Provider] - <Carlyn Maria - Last Filed: 06/08/18 15:56> Date of Encounter: 06/07/18 Time of Encounter: 10:00 - Assessment and Plan (1) S/P partial gastrectomy Current Visit: Yes Status: Acute pod 1 antrectomy, gerri n y, closure duodenal stump small amount of bilious drainage from right SARBJIT drain - monitor left SARBJIT drain serosang output daily midline wound dressing changes continue banda for accurate I/O's medical management and vent management per ccm continue antibiotics pain controlled gi/dvt prophylaxis turn and reposition q 2 hrs. (2) Unable to eat Current Visit: Yes Status: Acute TPN (3) Bacteremia due to Gram-negative bacteria Current Visit: Yes Status: Acute continue antibiotics Subjective Patient reports: other (sedated and ventilated, does not respond to verbal, no issues overnight per nursing) Objective Vital Signs - Last 8 Hours Temp Pulse Resp BP Pulse Ox 06/08/18 15:39 112 06/08/18 15:00 98.6 F 112 21 125/63 93 06/08/18 14:00 114 22 122/64 94 06/08/18 13:00 114 22 121/63 94 06/08/18 12:07 116 06/08/18 12:00 115 23 129/59 93 06/08/18 11:38 116 06/08/18 11:17 20 132/62 96 06/08/18 11:00 99.1 F 114 22 132/62 93 06/08/18 10:21 101 06/08/18 10:00 121 22 154/73 92 06/08/18 09:00 120 20 163/77 94 06/08/18 08:29 101 06/08/18 08:18 101 06/08/18 08:00 99.4 F 101 20 115/55 98 Intake and Output 06/07/18 06/08/18 06/08/18 23:59 07:59 15:59 Intake Total 500 / 500 475 / 475 401 / 401 Output Total 515 / 515 1270 / 1270 2014 Balance -15 / -15 -795 / -795 -1614 / -1614 Intake: IV Fluids 500 / 500 475 / 475 401 / 401 FentaNYL (PF) 2,500 MCG In 0 / 0 20 / 20 Empty Bag 1 Each @ 25 MCG/HR 0. 5 mls/hr IVC CONT [place] Rx#: [id number] HumuLIN R 100 UNIT In 0.9 % 101 / 101 Sodium Chloride 100 ML @ Titrate IVC CONT [place] Rx#: [id number] Protonix 40 MG In 0.9 % Sodium 100 / 100 100 / 100 100 / 100 Chloride (Mini-Bag +) 100 ML @ 20 mls/hr IVC .Q5H [place] Rx#: [id number] Phenylephrine 50 MG In Dextrose 80 / 80 5% 250 ML @ 40 MCG/MIN 12.24 mls/hr IVC CONT [facility] Rx#: [id number] Diprivan 1,000 mg In 100 ml @ 200 / 200 175 / 175 10 MCG/KG/MIN 6.26 mls/hr IVC . [id number] [facility] Rx#:[id number] Ofirmev 1,000 mg/100 ml 1,000 100 / 100 mg In 100 ml @ 400 mls/hr IVPB Q6HR [facility] Rx#:[id number] Diflucan Premix 200 MG/100 ML 100 / 100 200 mg In 100 ml @ 100 mls/hr IVPB DAILY [facility] Rx#:[id number] Zosyn 3.375 GM In 0.9 % Sodium 100 / 100 100 / 100 100 / 100 Chloride (Mini-Bag +) 100 ML @ 25 mls/hr IVPB Q8HR [facility] Rx#: [id number] Oral 0 / 0 Output: Catheter 375 / 375 1100 / 1100 1800 / 1800 Gastric Drainage 0 / 0 0 / 0 0 / 0 Wound Drainage 140 / 140 170 / 170 215 / 215 Left Abdomen 10 / 10 0 / 0 5 / 5 Right Abdomen 130 / 130 170 / 170 210 / 210 Other: Weight 109.6 kg Blood Glucose* 292 365 327 Patient Weight 06/08/18 23:59 Weight 109.6 kg - General physical appearance obese, other - Eyes PERRL - ENT dry mucosa, atraumatic, normocephalic - Neck Neck exam: trachea midline - Respiratory normal expansion, clear to auscultation - Cardiovascular Cardiovascular exam: Present: RRR - Abdomen Abdomen: Present: soft, wound. Absent: bowel sounds present, distended, guarding - Incision Incision: Present: clean and dry, open (packed with 1/4" iodoform) - Integumentary no rash, no growths - Neurologic CN 2-12 grossly intact - Musculoskeletal normal posture - Psychiatric oriented to time, oriented to person, oriented to place, speech is normal, memory intact - Labs 06/08/18 04:35 06/08/18 15:10 Diabetes panel 06/08/18 06/08/18 Range/Units 04:35 15:10 Sodium 132 L 135 L (136-145) mEq/L Potassium 4.9 4.6 (3.5-5.1) mEq/L Chloride 107 111 H (98-107) mEq/L Carbon Dioxide 19 L 20 L (23-29) mEq/L BUN 42 H 37 H (6-20) mg/dL Creatinine 1.84 H 1.63 H (0.70-1.30) mg/dL Glucose 399 H 345 H (70-105) mg/dL Calcium 8.2 L 8.5 L (8.6-10.3) mg/dL AST 10 L (13-39) Units/L ALT 9 (7-52) Units/L Alkaline Phosphatase 46 (34-104) Units/L Albumin 2.8 L (3.5-5.7) g/dL Calcium panel 06/08/18 06/08/18 Range/Units 04:35 15:10 Calcium 8.2 L 8.5 L (8.6-10.3) mg/dL Phosphorus 3.2 (2.7-4.5) mg/dL Albumin 2.8 L (3.5-5.7) g/dL Pituitary panel 06/08/18 06/08/18 Range/Units 04:35 15:10 Sodium 132 L 135 L (136-145) mEq/L Potassium 4.9 4.6 (3.5-5.1) mEq/L Chloride 107 111 H (98-107) mEq/L Carbon Dioxide 19 L 20 L (23-29) mEq/L BUN 42 H 37 H (6-20) mg/dL Creatinine 1.84 H 1.63 H (0.70-1.30) mg/dL Glucose 399 H 345 H (70-105) mg/dL Calcium 8.2 L 8.5 L (8.6-10.3) mg/dL Adrenal panel 06/08/18 06/08/18 Range/Units 04:35 15:10 Sodium 132 L 135 L (136-145) mEq/L Potassium 4.9 4.6 (3.5-5.1) mEq/L Chloride 107 111 H (98-107) mEq/L Carbon Dioxide 19 L 20 L (23-29) mEq/L BUN 42 H 37 H (6-20) mg/dL Creatinine 1.84 H 1.63 H (0.70-1.30) mg/dL Glucose 399 H 345 H (70-105) mg/dL Calcium 8.2 L 8.5 L (8.6-10.3) mg/dL Total Bilirubin 0.9 (0.3-1.0) mg/dL AST 10 L (13-39) Units/L ALT 9 (7-52) Units/L Alkaline Phosphatase 46 (34-104) Units/L Albumin 2.8 L (3.5-5.7) g/dL - Attending Attestation I examined this patient and my medical decision-making was reviewed with the Resident Physician. I agree with the documented findings, disposition and treatment plan as described except to the extent set forth below.
--- NOTE | 2018-06-07 16:04 | Electrocardiograph Report ---
[address] [place], [place] [address] Test Date: 2018-06-06 Pat Name: Ryan Grossman Department: 112 Room: [facility] Gender: M Behavioral Therapy Coordinator: : 1965 Requested By: Eulalio Ugalde Order Number: [id number] Reading MD: Sahil Kauffman Measurements Intervals [place] Rate: 140 P: 25 VA: 136 QRS: -17 QRSD: 82 T: 28 QT: 268 QTc: 350 Interpretive Statements SINUS TACHYCARDIA Electronically Signed On 06-07-2018 16:02:36 EDT by Sahil Kauffman
[2018-06-07] MEDS ORDERED: [UNRECOGNIZED DRUG - OTHER] IVC SCH (17:00)
[2018-06-07] MEDS ORDERED: PARENTERAL AMINO ACID 10% IVC SCH ×2 (17:00)
[2018-06-07] MEDS ORDERED: CLINIMIX IVC SCH (17:00)
[2018-06-07] MEDS ORDERED: [UNRECOGNIZED DRUG - OTHER] IVC SCH (17:00)
[2018-06-07] MEDS ORDERED: MVI IVC SCH ×2 (17:00)
[2018-06-07] MEDS ORDERED: CLINIMIX E IVC SCH (17:00)
[2018-06-07] MEDS: Acetaminophen IV 1,000 MG/100 ML INFUS..BTL IVPB PRN (17:20)
[2018-06-07] MEDS: FentaNYL (PF) 2,500 MCG in EMPTY BAG 1 EACH IVC SCH (18:10)
[2018-06-07 20:41] LABS: Hematocrit 22.8 % (37.5-50.1); Hemoglobin 7.2 g/dL (12.9-16.9)
[2018-06-08] MEDS: Pantoprazole 40 MG in 0.9 % Sodium Chloride Mini Bag 100 ML IVC SCH ×5 (01:15→21:30)
[2018-06-08] MEDS: Insulin LISPRO 300 UNITS/3 ML VIAL SQ SCH (04:18)
[2018-06-08 04:51] LABS: Basophils % 0.1 %; Eosinophils # 0.1 K/mcL (0.0-0.6); Eosinophils % 0.9 %; Hematocrit 22.7 % (37.5-50.1); Hemoglobin 7.2 g/dL (12.9-16.9); Lymphocytes # 0.4 K/mcL (0.6-4.6); Lymphocytes % 3.6 %; Mean Corpuscular HGB Conc 31.7 g/dL (31.6-35.5); Mean Corpuscular Hemoglobin 28.3 pg (28.0-33.3); Mean Corpuscular Volume 89.4 fL (83.0-100.0); Monocytes # 0.4 K/mcL (0.0-1.3); Monocytes % 3.6 %; Neutrophils # 9.1 K/mcL (1.6-8.9); Nucleated Red Blood Cells 0.2 /100 WBC (0); Platelet Count 107 K/mcL (140-400); Red Blood Count 2.54 M/mcL (4.19-5.50); Red Cell Distribution Width 15.4 % (11.5-14.5); Segmented Neutrophils % 83.8 %
[2018-06-08 05:06] LABS: VBG Ionized Calcium 1.16 mmol/L (1.15-1.35)
[2018-06-08 05:12] LABS: Calcium 8.2 mg/dL (8.6-10.3); Phosphorous 3.2 mg/dL (2.7-4.5); Potassium 4.9 mEq/L (3.5-5.1)
[2018-06-08 05:14] LABS: Platelet Estimate Normal (Normal); Toxic Granulation Present (Not Present)
[2018-06-08] MEDS: Artificial Tears SOLN 15 ML BOTTLE BOTH EYES SCH ×5 (05:21→21:12)
[2018-06-08 05:30] LABS: ABG Base Excess -8 mEq/L (-2 to 3); ABG HCO3 18 mEq/L (21-27); ABG Oxygen Saturation 96 % (95-98); ABG PCO2 39 mmHg (35-45); ABG PH 7.28 pH Units (7.32-7.45); ABG PO2 93 mmHg (85-104); ABG TCO2 20 mEq/L (20-26); Blood Gas Modality PRVC; Blood Gas PEEP 5 cm H2O; Blood Gas Respiration Rate 18; Blood Gas VT 470 cc
[2018-06-08] MEDS: *HR* Heparin 5,000 UNIT/ML VIAL SQ SCH ×3 (06:30→21:10)
--- NOTE | 2018-06-08 06:44 | Pulmonology Progress Note ---
Date of Encounter: 06/08/18 Time of Encounter: 06:43 Assessment and Plan (1) Septic shock due to Escherichia coli Current Visit: Yes Status: Acute Secondary to intraabdominal abscess with purulent fluid collections/ E. coli bacteremia. Remains intubated and sedated with propofol, added versed, continue fentanyl. ABG improved today. Ph 7.33, paco2 38, po2 104 on 30% fio2. Prelim blood culture pos for E coli. Sensitive to pip/tazo which he is on, resistant to ampicillin, amp/sulbactam. Abdominal fluid culture pos for gram neg edu, likely E coli also, no sensitivities yet. Today patient is tachycardic with HR into 120s, hypotensive requiring Phenelypherine pressor support overnight. Tmax 101.3F this AM, with reactive post-op leukocytosis. Will continue zosyn and diflucan for now. PICC team consulted to insert EPIV. ID and general surgery closely following. Condition remains guarded with a potential for worsening despite appropriate medical interventions. (2) Bacteremia due to Gram-negative bacteria Current Visit: Yes Status: Acute 06/02/18 blood culture pos for E coli 1/2 via PCR, sensitive to pip/tazo which he is on, resistant to ampicillin, amp/sulbactam. ID is on board. Will continue current abx, not able to deescalate at this time Repeat blood cultures collected 06/06/18 (3) Perforated viscus Current Visit: Yes Status: Acute S/p exlap, washout 06/02/18. S/p exploratory laparotomy, antrectomy, closure of duodenal stump, and gerri en Y reconstruction 06/05/18 Gen surg following (4) Lactic acidosis Current Visit: Yes Status: Acute Improved from high of 5.1 down to 1.8 (5) Acute on chronic renal failure Current Visit: Yes Status: Resolved Sr down from 1.99 to 1.04 today. His fluid balance is net positive 5588cc during current hospital stay. Albumin x2 given 06/06/18. Decreased urine output over the last 12 hours after surgery, no evidence of abdominal compartment syndrome Monitor and replace electrolytes as needed. Qualifiers: Acute renal failure type: unspecified Chronic kidney disease stage: unspecified stage Qualified Code(s): N17.9 - Acute kidney failure, unspecified ; N18.9 - Chronic kidney disease, unspecified (6) Diabetes Current Visit: Yes Status: Chronic HGB a1c 5.8 on 04/22/18 SSI increased to high dose coverage 06/06/18 Continue acuchecks q6h. Qualifiers: Diabetes mellitus type: type 2 Diabetes mellitus custodial insulin use: without emt intermediate use Diabetes mellitus complication status: with hyperglycemia Qualified Code(s): E11.65 - Type 2 diabetes mellitus with hyperglycemia (7) Hypertension Current Visit: Yes Status: Chronic Hold home antihypertensive meds due to hypotension Qualifiers: Hypertension type: essential hypertension Qualified Code(s): I10 - Essential (primary) hypertension (8) VRE (vancomycin-resistant Enterococci) Current Visit: No Status: Inactive Hx of VRE in urine. Previously treated with outpatient abx by ID. (9) Obesity (BMI 30.0-34.9) Current Visit: Yes Status: Chronic BMI 33.3, continue TPN for nutrition (10) DVT prophylaxis Current Visit: Yes Status: Acute Heparin subQ TID Subjective Principal diagnosis: Septic shock Interval history: Patient seen and examined on POD#1 s/p exploratory laparotomy, antrectomy, closure of duodenal stump, and gerri en Y reconstruction. Patient remains intubated and sedated. Nursing reports tachycardia with HR into 120s and hypotension requiring Phenelypherine pressor support overnight. Patient has been febrile with Tmax 101.3F this AM and remains on Zosyn. He was given a total of 3L normal saline last night and has decreased urinary output. His fluid balance is net positive 5588cc during current hospital stay. CXR ordered. Objective PUL Vital signs: Last Vital Signs Temp 98.9 F 06/08/18 04:00 Pulse 101 06/08/18 06:00 Resp 18 06/08/18 06:00 BP 115/56 06/08/18 06:00 Pulse Ox 97 06/08/18 06:00 Ventilator Settings Ventilator Settings: Ventilator Settings, Last 8 Hours Ventilator Tidal Volume 470 Setting Ventilator Tidal Volume 470 Setting Ventilator Tidal Volume 470 Setting Ventilator Tidal Volume 470 Setting Ventilator Tidal Volume 470 Setting Ventilator Tidal Volume 470 Setting Ventilator Tidal Volume 470 Setting Ventilator Tidal Volume 470 Setting Ventilator Tidal Volume 470 Setting Ventilator Tidal Volume 470 Setting Ventilator Tidal Volume 470 Setting Ventilator Tidal Volume 470 Setting Ventilator Respiratory Rate 18 Setting Ventilator Respiratory Rate 18 Setting Ventilator Respiratory Rate 18 Setting Ventilator Respiratory Rate 18 Setting Ventilator Respiratory Rate 18 Setting Ventilator Respiratory Rate 18 Setting Ventilator Respiratory Rate 18 Setting Ventilator Respiratory Rate 18 Setting Ventilator Respiratory Rate 18 Setting Ventilator Respiratory Rate 18 Setting Ventilator Respiratory Rate 18 Setting Ventilator Respiratory Rate 18 Setting Actual Respiratory Rate 18 Actual Respiratory Rate 18 Actual Respiratory Rate 18 Actual Respiratory Rate 19 Actual Respiratory Rate 18 Actual Respiratory Rate 18 Actual Respiratory Rate 18 Actual Respiratory Rate 18 Actual Respiratory Rate 18 Actual Respiratory Rate 18 Actual Respiratory Rate 18 Positive End Expiratory 5 Pressure Positive End Expiratory 5 Pressure Positive End Expiratory 5 Pressure Positive End Expiratory 5 Pressure Positive End Expiratory 5 Pressure Positive End Expiratory 5 Pressure Positive End Expiratory 5 Pressure Positive End Expiratory 5 Pressure Positive End Expiratory 5 Pressure Positive End Expiratory 5 Pressure Positive End Expiratory 5 Pressure Positive End Expiratory 5 Pressure Peak Inspiratory Airway 15 Pressure Peak Inspiratory Airway 15 Pressure Peak Inspiratory Airway 15 Pressure Peak Inspiratory Airway 14 Pressure Peak Inspiratory Airway 15 Pressure Peak Inspiratory Airway 11 Pressure Peak Inspiratory Airway 16 Pressure Peak Inspiratory Airway 18 Pressure Peak Inspiratory Airway 16 Pressure Peak Inspiratory Airway 16 Pressure Peak Inspiratory Airway 15 Pressure Results - Laboratory Findings CBC and BMP: 06/08/18 04:35 06/08/18 04:35 ABG ABG pH 7.28 pH Units (7.32-7.45) L 06/08/18 05:27 ABG pCO2 39 mmHg (35-45) 06/08/18 05:27 ABG pO2 93 mmHg (85-104) 06/08/18 05:27 ABG O2 Saturation 96 % (95-98) 06/08/18 05:27 PT/INR, D-dimer PT 15.1 Seconds (9.4-12.1) H 06/07/18 06:49 Abnormal lab findings: Abnormal lab results RBC 2.54 M/mcL (4.19-5.50) L 06/08/18 04:35 Hgb 7.2 g/dL (12.9-16.9) L 06/08/18 04:35 Hct 22.7 % (37.5-50.1) L 06/08/18 04:35 RDW 15.4 % (11.5-14.5) H 06/08/18 04:35 Plt Count 107 K/mcL (140-400) L 06/08/18 04:35 Immature Gran % 8.0 % (0-4) H 06/08/18 04:35 Neutrophils # 9.1 K/mcL (1.6-8.9) H 06/08/18 04:35 Lymphocytes # 0.4 K/mcL (0.6-4.6) L 06/08/18 04:35 Nucleated RBCs/100 WBC 0.2 /100 WBC (0) H 06/08/18 04:35 Toxic Granulation Present (Not Present) A 06/08/18 04:35 Large Platelets Present (Not Present) A 06/07/18 03:30 PT 15.1 Seconds (9.4-12.1) H 06/07/18 06:49 ABG pH 7.28 pH Units (7.32-7.45) L 06/08/18 05:27 ABG HCO3 18 mEq/L (21-27) L 06/08/18 05:27 ABG Base Excess -8 mEq/L (-2 to 3) L 06/08/18 05:27 Sodium 132 mEq/L (136-145) L 06/08/18 04:35 Carbon Dioxide 19 mEq/L (23-29) L 06/08/18 04:35 BUN 42 mg/dL (6-20) H 06/08/18 04:35 Creatinine 1.84 mg/dL (0.70-1.30) H 06/08/18 04:35 Est GFR ( Amer) 47 (> 60) L 06/08/18 04:35 Est GFR (Non-Af Amer) 39 (> 60) L 06/08/18 04:35 Glucose 399 mg/dL (70-105) H 06/08/18 04:35 POC Glucose 292 mg/dL (70-99) H 06/07/18 19:36 Calculated Osmolality 301 (280-300) H 06/08/18 04:35 Calcium 8.2 mg/dL (8.6-10.3) L 06/08/18 04:35 Direct Bilirubin 0.4 mg/dL (0.0-0.2) H 06/06/18 02:10 AST 9 Units/L (13-39) L 06/07/18 03:30 Creatine Kinase 11 Units/L (30-223) L 06/02/18 17:29 Serum Total Protein 4.7 g/dL (6.4-8.9) L 06/07/18 03:30 Albumin 2.9 g/dL (3.5-5.7) L 06/07/18 03:30 Globulin 1.8 g/dL (2.4-3.5) L 06/07/18 03:30 Triglycerides 332 mg/dL (< 150) H 06/04/18 05:02 Gastrin 117 pg/mL (0-100) H 06/03/18 21:23 Urine Clarity Cloudy (Clear) A 06/02/18 09:18 Urine Protein 100 mg/dL (Neg-Trace) H 06/02/18 09:18 Urine Blood Large (Negative) H 06/02/18 09:18 Ur Leukocyte Esterase Moderate (Negative) H 06/02/18 09:18 Urine Microscopic RBC TNTC per hpf (0-3) H 06/02/18 09:18 Urine Microscopic WBC 15-30 per hpf (0-3) H 06/02/18 09:18 Ur Squamous Epith Cells Many per lpf (None-Few) H 06/02/18 09:18 Ur Culture Indicated? NO. (NO) A 06/02/18 09:18 Enterobacteriac sp PCR DETECTED (Not Detect) A 06/02/18 09:18 E. coli (PCR) DETECTED (Not Detect) A 06/02/18 09:18 - Microbiology Findings Microbiology Findings: Microbiology, Last 48 Hours 06/06/18 09:20 Urine Culture - Preliminary Urine,[place] No growth. 06/07/18 03:48 Sputum Culture - Final Sputum 06/06/18 03:35 Blood Culture - Preliminary Peripheral Venipuncture Culture is incubating and being continuously monitored for growth. Final report to follow. - Clinical Findings Intake & Output: Intake & Output 06/07/18 06/07/18 06/08/18 15:59 23:59 07:59 Intake Total 1355.6 / 1355.6 500 / 500 300 / 300 Output Total 750 / 750 515 / 515 1270 / 1270 Balance 605.6 / 605.6 -15 / -15 -970 / -970 - VTE Documentation of Mechanical Device: Intermittent pneumatic compression device Consult Discharge Plan - Plan Referrals: Zafar Hinton MD [Primary Care Provider] -
[2018-06-08] MEDS ORDERED: *HR* Dextrose 50 % in Water (Syg) 50 ML SYRINGE IVP PRN (08:14)
[2018-06-08 08:23] LABS: Albumin 2.8 g/dL (3.5-5.7); Albumin/Globulin Ratio 1.6 (1.1-2.2); Bilirubin,Direct 0.9 mg/dL (0.0-0.2); Bilirubin,Total 0.9 mg/dL (0.3-1.0); Globulin 1.8 g/dL (2.4-3.5); Total Protein 4.6 g/dL (6.4-8.9)
[2018-06-08] MEDS: Chlorhexidine Rinse 15 ML MOUTHWASH MM SCH ×2 (08:34→21:11)
[2018-06-08] MEDS: Fluconazole 200 MG/100 ML 200 MG/100 ML BAG IVPB SCH (08:35)
[2018-06-08] MEDS: Piperacillin/Tazobactam 3.375 GM in 0.9 % Sodium Chloride Mini Bag 100 ML IVPB SCH ×2 (08:35→16:15)
[2018-06-08] MEDS: Insulin Human Regular 100 UNIT in 0.9 % Sodium Chloride 100 ML IVC SCH ×4 (09:00→22:01)
--- NOTE | 2018-06-08 10:04 | General Surgery Progress Note ---
Date of Encounter: 06/08/18 Time of Encounter: 10:02 - Assessment and Plan (1) S/P partial gastrectomy Current Visit: Yes Status: Acute pt pod 2 antrectomy, Dagoberto-y, closure duodenal stump left drain with bilious output, volume slightly increased in last 24 hrs ventilation and medical management per [facility] continue Abx gi/dvt prophylaxis daily midline wound dressing changes turn and reposition q 2 hrs TPN - unable to eat (2) Unable to eat Current Visit: Yes Status: Acute TPN until able to take in po (3) Bacteremia due to Gram-negative bacteria Current Visit: Yes Status: Acute continue abx Subjective Narrative: patient sedated on vent, per nursing no acute events in last 24 hrs Objective Vital Signs - Last 8 Hours Temp Pulse Resp BP Pulse Ox 06/08/18 08:29 101 06/08/18 08:18 101 06/08/18 08:00 99.4 F 101 20 115/55 98 06/08/18 07:25 18 111/55 97 06/08/18 07:00 100 18 112/55 97 06/08/18 06:00 101 18 115/56 97 06/08/18 05:00 99 18 111/55 97 06/08/18 04:00 98.9 F 98 18 115/56 97 06/08/18 03:40 18 113/58 96 06/08/18 03:00 99 18 124/55 96 Intake and Output 06/07/18 06/08/18 06/08/18 23:59 07:59 15:59 Intake Total 500 / 500 300 / 300 0 / 0 Output Total 515 / 515 1270 / 1270 585 / 585 Balance -15 / -15 -970 / -970 -585 / -585 Intake: IV Fluids 500 / 500 300 / 300 FentaNYL (PF) 2,500 MCG In 0 / 0 Empty Bag 1 Each @ 25 MCG/HR 0. 5 mls/hr IVC CONT [place] Rx#: [id number] Protonix 40 MG In 0.9 % Sodium 100 / 100 100 / 100 Chloride (Mini-Bag +) 100 ML @ 20 mls/hr IVC .Q5H [place] Rx#: [id number] Diprivan 1,000 mg In 100 ml @ 200 / 200 100 / 100 10 MCG/KG/MIN 6.26 mls/hr IVC . [id number] [place] Rx#:[id number] Ofirmev 1,000 mg/100 ml 1,000 100 / 100 mg In 100 ml @ 400 mls/hr IVPB Q6HR PRN Rx#:[id number] Zosyn 3.375 GM In 0.9 % Sodium 100 / 100 100 / 100 Chloride (Mini-Bag +) 100 ML @ 25 mls/hr IVPB Q8HR [facility] Rx#: [id number] Oral 0 / 0 Output: Catheter 375 / 375 1100 / 1100 550 / 550 Gastric Drainage 0 / 0 0 / 0 0 / 0 Wound Drainage 140 / 140 170 / 170 35 / 35 Left Abdomen 10 / 10 0 / 0 5 / 5 Right Abdomen 130 / 130 170 / 170 30 / 30 Other: Blood Glucose* 292 365 396 - General physical appearance well developed, well nourished, obese - Eyes pinpoint pupil - ENT dry mucosa, atraumatic, normocephalic - Neck Neck exam: trachea midline - Respiratory normal expansion, clear to auscultation, other (vented) - Cardiovascular Cardiovascular exam: Present: tachycardia - Abdomen Abdomen: Present: soft. Absent: bowel sounds present, distended, guarding, rebound Additional Comments: right SARBJIT - increased bilous output left SARBJIT sero >sang - Incision Incision: Present: clean and dry, open (packed with 1/4" iodoform - serosang drainage) - Genitourinary normal penis with no external lesions, other (banda in place wiht clear yellow urine) - Integumentary no rash - Neurologic other (sedated) - Psychiatric other (sedated) - Labs 06/08/18 04:35 06/08/18 04:35 Diabetes panel 06/07/18 06/08/18 Range/Units 13:55 04:35 Sodium 130 L 132 L (136-145) mEq/L Potassium 5.0 4.9 (3.5-5.1) mEq/L Chloride 104 107 (98-107) mEq/L Carbon Dioxide 19 L 19 L (23-29) mEq/L BUN 41 H 42 H (6-20) mg/dL Creatinine 1.82 H 1.84 H (0.70-1.30) mg/dL Glucose 264 H 399 H (70-105) mg/dL Calcium 8.1 L 8.2 L (8.6-10.3) mg/dL AST 10 L (13-39) Units/L ALT 9 (7-52) Units/L Alkaline Phosphatase 46 (34-104) Units/L Albumin 2.8 L (3.5-5.7) g/dL Calcium panel 06/07/18 06/08/18 Range/Units 13:55 04:35 Calcium 8.1 L 8.2 L (8.6-10.3) mg/dL Phosphorus 3.2 (2.7-4.5) mg/dL Albumin 2.8 L (3.5-5.7) g/dL Pituitary panel 06/07/18 06/08/18 Range/Units 13:55 04:35 Sodium 130 L 132 L (136-145) mEq/L Potassium 5.0 4.9 (3.5-5.1) mEq/L Chloride 104 107 (98-107) mEq/L Carbon Dioxide 19 L 19 L (23-29) mEq/L BUN 41 H 42 H (6-20) mg/dL Creatinine 1.82 H 1.84 H (0.70-1.30) mg/dL Glucose 264 H 399 H (70-105) mg/dL Calcium 8.1 L 8.2 L (8.6-10.3) mg/dL Adrenal panel 06/07/18 06/08/18 Range/Units 13:55 04:35 Sodium 130 L 132 L (136-145) mEq/L Potassium 5.0 4.9 (3.5-5.1) mEq/L Chloride 104 107 (98-107) mEq/L Carbon Dioxide 19 L 19 L (23-29) mEq/L BUN 41 H 42 H (6-20) mg/dL Creatinine 1.82 H 1.84 H (0.70-1.30) mg/dL Glucose 264 H 399 H (70-105) mg/dL Calcium 8.1 L 8.2 L (8.6-10.3) mg/dL Total Bilirubin 0.9 (0.3-1.0) mg/dL AST 10 L (13-39) Units/L ALT 9 (7-52) Units/L Alkaline Phosphatase 46 (34-104) Units/L Albumin 2.8 L (3.5-5.7) g/dL - VTE Documentation of Mechanical Device: Intermittent pneumatic compression device Consult Discharge Plan - Plan Referrals: Zafar Hinton MD [Primary Care Provider] -
[2018-06-08 15:50] LABS: Calcium 8.5 mg/dL (8.6-10.3); Potassium 4.6 mEq/L (3.5-5.1)
[2018-06-08] MEDS ORDERED: [UNRECOGNIZED DRUG - OTHER] IVC SCH (17:00)
[2018-06-08] MEDS ORDERED: CLINIMIX E IVC SCH (17:00)
[2018-06-08] MEDS ORDERED: PARENTERAL AMINO ACID 10% IVC SCH ×2 (17:00)
[2018-06-08] MEDS ORDERED: [UNRECOGNIZED DRUG - OTHER] IVC SCH (17:00)
[2018-06-08] MEDS ORDERED: CLINIMIX IVC SCH (17:00)
[2018-06-08] MEDS ORDERED: MVI IVC SCH ×2 (17:00)
[2018-06-08] MEDS: FentaNYL (PF) 1,000 MCG in 0.9 % Sodium Chloride 80 ML IVC SCH ×2 (19:19→23:47)
[2018-06-08] MEDS: Dexmedetomidine HCl 400 MCG/100 ML MLS IVC SCH (21:11)
[2018-06-09] MEDS: Piperacillin/Tazobactam 3.375 GM in 0.9 % Sodium Chloride Mini Bag 100 ML IVPB SCH ×3 (00:04→16:30)
[2018-06-09] MEDS: Artificial Tears SOLN 15 ML BOTTLE BOTH EYES SCH ×6 (00:30→21:33)
[2018-06-09] MEDS: Insulin Human Regular 250 UNIT in 0.9 % Sodium Chloride 250 ML IVC SCH ×3 (02:00→18:00)
[2018-06-09] MEDS: Pantoprazole 40 MG in 0.9 % Sodium Chloride Mini Bag 100 ML IVC SCH ×2 (03:07→09:21)
[2018-06-09] MEDS: FentaNYL (PF) 1,000 MCG in 0.9 % Sodium Chloride 80 ML IVC SCH ×3 (04:00→18:14)
[2018-06-09 04:07] LABS: Hematocrit 25.5 % (37.5-50.1); Hemoglobin 7.9 g/dL (12.9-16.9); Mean Corpuscular Volume 90.4 fL (83.0-100.0); Mean Platelet Volume 9.2 fL (9.4-12.4); Platelet Count 135 K/mcL (140-400); Red Blood Count 2.82 M/mcL (4.19-5.50); Red Cell Distribution Width 15.9 % (11.5-14.5)
[2018-06-09] MEDS: Dexmedetomidine HCl 400 MCG/100 ML MLS IVC SCH ×2 (04:08→21:53)
[2018-06-09 04:19] LABS: VBG Ionized Calcium 1.32 mmol/L (1.15-1.35)
[2018-06-09 04:29] LABS: BUN/Creatinine Ratio 24 (6-26); Blood Urea Nitrogen 31 mg/dL (6-20); Carbon Dioxide 21 mEq/L (23-29); Chloride 112 mEq/L (98-107); Glucose 209 mg/dL (70-105); Magnesium 1.8 mg/dL (1.6-2.6); Osmolality,Calculated 301 (280-300); Phosphorous 1.7 mg/dL (2.7-4.5); Potassium 4.4 mEq/L (3.5-5.1); Sodium 139 mEq/L (136-145); eGFR For Non-African Americans 58 (> 60)
[2018-06-09 04:34] LABS: ABG Base Excess -5 mEq/L (-2 to 3); ABG HCO3 22 mEq/L (21-27); ABG Oxygen Saturation 98 % (95-98); ABG PCO2 49 mmHg (35-45); ABG PH 7.26 pH Units (7.32-7.45); ABG PO2 112 mmHg (85-104); ABG TCO2 23 mEq/L (20-26); Blood Gas Modality PRVC; Blood Gas PEEP 5 cm H2O; Blood Gas Respiration Rate 18; Blood Gas VT 470 cc
[2018-06-09] MEDS: *HR* Heparin 5,000 UNIT/ML VIAL SQ SCH ×3 (06:08→21:31)
--- NOTE | 2018-06-09 07:39 | General Surgery Progress Note ---
<Pedro Ocasio R - Last Filed: 06/09/18 07:36> Date of Encounter: 06/09/18 Time of Encounter: 07:15 - Assessment and Plan (1) Pneumoperitoneum Current Visit: Yes Status: Acute POD #4 s/p exploratory laparotomy, antrectomy, gerri en Y reconstruction with Drs. Serrano and Mary on 06/05/2018 Patient is sedated and intubated. Bilious Rt SARBJIT drainage continues Has been weaned off pressors, afebrile today, tachycardia improving POC glucose has been up to 400's requiring insulin drip management Plan: Continue CCU care and medical management Wean sedation and vent as tolerated NG to LIWS Continue antibiotics, antifungal TPN, will discuss with dietary elevated glucose Insulin as needed for control PPI/ dvt prophylaxis Comfort care and pain management Wound care daily Monitor drain and NG output (2) Anemia Current Visit: No Status: Acute Transfused by Critical care team 2 units PRBCs on 06/07/2018 H/H has remained stable since that time, no bloody drainage Continue to monitor and transfuse as needed Qualifiers: Anemia type: other cause Other causes of anemia: other cause, not classified Qualified Code(s): D64.89 - Other specified anemias (3) Acute on chronic renal failure Current Visit: Yes Status: Resolved Creatinine improved to 1.29 today continue to monitor and replete lytes as needed Qualifiers: Acute renal failure type: unspecified Chronic kidney disease stage: unspecified stage Qualified Code(s): N17.9 - Acute kidney failure, unspecified ; N18.9 - Chronic kidney disease, unspecified Subjective Narrative: Patient sedated and on ventilator. Nursing states no acute events or changes. Pressor weaned and stopped 2 days ago. POC glucose as high as 400's yesterday. Objective Vital Signs - Last 8 Hours Temp Pulse Resp BP Pulse Ox 06/09/18 06:30 94 18 133/85 100 06/09/18 06:03 18 110/75 100 06/09/18 05:00 96 21 128/77 100 06/09/18 04:00 98.6 F 97 19 119/78 100 06/09/18 03:33 21 118/77 100 06/09/18 03:00 93 22 119/79 100 06/09/18 02:00 90 19 166/80 100 06/09/18 01:15 21 162/84 100 06/09/18 01:00 96 19 162/84 100 06/09/18 00:00 106 22 178/91 100 06/08/18 23:55 99.0 F Intake and Output 06/08/18 06/08/18 06/09/18 15:59 23:59 07:59 Intake Total 401 / 401 518.3 / 518.3 513.6 / 513.6 Output Total 2014 1265 / 1265 1010 / 1010 Balance -1614 / -1614 -746.7 / -746.7 -496.4 / -496.4 Intake: IV Fluids 401 / 401 518.3 / 518.3 513.6 / 513.6 FentaNYL (PF) 1,000 MCG In 0.9 100.0 / 100.0 100 / 100 % Sodium Chloride 80 ML @ 50 MCG/HR 5 mls/hr IVC CONT [place] Rx #:[id number] HumuLIN R 100 UNIT In 0.9 % 101 / 101 208.3 / 208.3 87.0 / 87.0 Sodium Chloride 100 ML @ Titrate IVC CONT [place] Rx#: [id number] HumuLIN R 250 UNIT In 0.9 % 126.6 / 126.6 Sodium Chloride 250 ML @ Titrate IVC CONT [place] Rx#: [id number] Protonix 40 MG In 0.9 % Sodium 100 / 100 110 / 110 100 / 100 Chloride (Mini-Bag +) 100 ML @ 20 mls/hr IVC .Q5H [place] Rx#: [id number] Diflucan Premix 200 MG/100 ML 100 / 100 200 mg In 100 ml @ 100 mls/hr IVPB DAILY [place] Rx#:[id number] Zosyn 3.375 GM In 0.9 % Sodium 100 / 100 100 / 100 100 / 100 Chloride (Mini-Bag +) 100 ML @ 25 mls/hr IVPB Q8HR [place] Rx#: [id number] Oral 0 / 0 0 / 0 Output: Gastric Tube Lavage Amount 0 / 0 20 / 20 Right Nare 0 / 0 20 / 20 Catheter 1800 / 1800 1150 / 1150 700 / 700 Gastric Drainage 0 / 0 230 / 230 Wound Drainage 215 / 215 115 / 115 60 / 60 Left Abdomen 5 / 5 5 / 5 Right Abdomen 210 / 210 110 / 110 60 / 60 Other: Weight 109.6 kg Blood Glucose* 327 245 200 - General physical appearance well nourished, obese, other (sedated on vent) - ENT dry mucosa, atraumatic, normocephalic - Neck Neck exam: trachea midline - Respiratory normal expansion, clear to auscultation, other (ventilator) - Cardiovascular Cardiovascular exam: Present: RRR - Abdomen Abdomen: Present: soft, wound (Right SARBJIT with 110 mL bilious output in last 8 hrs. Left SARBJIT 5 mL Serous ). Absent: bowel sounds present, distended, guarding, rebound - Incision Incision: Present: clean and dry, open (Packed in places with iodoform for [place]) - Genitourinary normal penis with no external lesions, other (banda catheter) - Integumentary no rash - Neurologic other (sedated) - Musculoskeletal other (sedated) - Psychiatric other (sedated) - Labs 06/09/18 04:00 06/09/18 04:00 Diabetes panel 06/08/18 06/08/18 06/09/18 Range/Units 04:35 15:10 04:00 Sodium 132 L 135 L 139 (136-145) mEq/L Potassium 4.9 4.6 4.4 (3.5-5.1) mEq/L Chloride 107 111 H 112 H (98-107) mEq/L Carbon Dioxide 19 L 20 L 21 L (23-29) mEq/L BUN 42 H 37 H 31 H (6-20) mg/dL Creatinine 1.84 H 1.63 H 1.29 (0.70-1.30) mg/dL Glucose 399 H 345 H 209 H (70-105) mg/dL Calcium 8.2 L 8.5 L 9.0 (8.6-10.3) mg/dL AST 10 L (13-39) Units/L ALT 9 (7-52) Units/L Alkaline Phosphatase 46 (34-104) Units/L Albumin 2.8 L (3.5-5.7) g/dL Calcium panel 06/08/18 06/08/18 06/09/18 Range/Units 04:35 15:10 04:00 Calcium 8.2 L 8.5 L 9.0 (8.6-10.3) mg/dL Phosphorus 3.2 1.7 L (2.7-4.5) mg/dL Albumin 2.8 L (3.5-5.7) g/dL Pituitary panel 06/08/18 06/08/18 06/09/18 Range/Units 04:35 15:10 04:00 Sodium 132 L 135 L 139 (136-145) mEq/L Potassium 4.9 4.6 4.4 (3.5-5.1) mEq/L Chloride 107 111 H 112 H (98-107) mEq/L Carbon Dioxide 19 L 20 L 21 L (23-29) mEq/L BUN 42 H 37 H 31 H (6-20) mg/dL Creatinine 1.84 H 1.63 H 1.29 (0.70-1.30) mg/dL Glucose 399 H 345 H 209 H (70-105) mg/dL Calcium 8.2 L 8.5 L 9.0 (8.6-10.3) mg/dL Adrenal panel 06/08/18 06/08/18 06/09/18 Range/Units 04:35 15:10 04:00 Sodium 132 L 135 L 139 (136-145) mEq/L Potassium 4.9 4.6 4.4 (3.5-5.1) mEq/L Chloride 107 111 H 112 H (98-107) mEq/L Carbon Dioxide 19 L 20 L 21 L (23-29) mEq/L BUN 42 H 37 H 31 H (6-20) mg/dL Creatinine 1.84 H 1.63 H 1.29 (0.70-1.30) mg/dL Glucose 399 H 345 H 209 H (70-105) mg/dL Calcium 8.2 L 8.5 L 9.0 (8.6-10.3) mg/dL Total Bilirubin 0.9 (0.3-1.0) mg/dL AST 10 L (13-39) Units/L ALT 9 (7-52) Units/L Alkaline Phosphatase 46 (34-104) Units/L Albumin 2.8 L (3.5-5.7) g/dL - VTE Documentation of Mechanical Device: Intermittent pneumatic compression device Consult Discharge Plan - Plan Referrals: Zafar Hinton MD [Primary Care Provider] - <Benedict Serrano - Last Filed: 06/09/18 23:42> Date of Encounter: 06/09/18 - Assessment and Plan (1) Peritonitis Current Visit: Yes Status: Acute Objective Vital Signs - Last 8 Hours Temp Pulse Resp BP Pulse Ox 06/09/18 23:11 22 118/78 96 06/09/18 23:00 95 20 118/78 96 06/09/18 22:00 107 26 134/88 99 06/09/18 21:31 22 157/89 94 06/09/18 21:00 112 26 198/100 92 06/09/18 20:30 107 21 146/87 99 06/09/18 20:10 99.1 F 06/09/18 19:28 21 145/95 97 06/09/18 19:00 101 24 145/95 96 06/09/18 18:09 99 19 133/83 100 06/09/18 18:00 103 18 138/92 100 06/09/18 17:00 99 19 133/83 100 06/09/18 16:00 98 18 133/83 100 Intake and Output 06/09/18 06/09/18 06/09/18 07:59 15:59 23:59 Intake Total 513.6 / 513.6 1146 / 1146 361.8 / 361.8 Output Total 1010 / 1010 1675 / 1675 470 / 470 Balance -496.4 / -496.4 -529 / -529 -108.2 / -108.2 Intake: IV Fluids 513.6 / 513.6 1146 / 1146 361.8 / 361.8 PRECEDEX Premix 400 mcg In 100 3.3 / 3.3 ml @ 0.2 MCG/KG/HR 5.48 mls/hr IVC .[id number] [place] Rx#:[id number] FentaNYL (PF) 1,000 MCG In 0.9 100 / 100 200 / 200 71.2 / 71.2 % Sodium Chloride 80 ML @ 50 MCG/HR 5 mls/hr IVC CONT [place] Rx #:[id number] HumuLIN R 100 UNIT In 0.9 % 87.0 / 87.0 Sodium Chloride 100 ML @ Titrate IVC CONT [place] Rx#: [id number] HumuLIN R 250 UNIT In 0.9 % 126.6 / 126.6 282 / 282 187.3 / 187.3 Sodium Chloride 250 ML @ Titrate IVC CONT [place] Rx#: [id number] Protonix 40 MG In 0.9 % Sodium 100 / 100 100 / 100 Chloride (Mini-Bag +) 100 ML @ 20 mls/hr IVC .Q5H [place] Rx#: [id number] Diflucan Premix 200 MG/100 ML 100 / 100 200 mg In 100 ml @ 100 mls/hr IVPB DAILY [place] Rx#:[id number] Magnesium Sulfate 2 GM In 0.9 % 104 / 104 Sodium Chloride 100 ML @ 52 mls/hr IVPB Q6H [facility] Rx#: [id number] Zosyn 3.375 GM In 0.9 % Sodium 100 / 100 100 / 100 100 / 100 Chloride (Mini-Bag +) 100 ML @ 25 mls/hr IVPB Q8HR [place] Rx#: [id number] Sodium Phosphate 30 MMOL In 0.9 260 / 260 % Sodium Chloride 250 ML @ 42 mls/hr IVPB Q12H [facility] Rx#: [id number] Oral 0 / 0 0 / 0 Output: Gastric Tube Lavage Amount 20 / 20 0 / 0 0 / 0 Right Nare 20 / 20 0 / 0 0 / 0 Catheter 700 / 700 1350 / 1350 350 / 350 Gastric Drainage 230 / 230 50 / 50 Wound Drainage 60 / 60 325 / 325 70 / 70 Left Abdomen 0 / 0 5 / 5 Right Abdomen 60 / 60 325 / 325 65 / 65 Other: Blood Glucose* 200 176 137 - Labs 06/09/18 04:00 06/09/18 04:00 Diabetes panel 06/09/18 Range/Units 04:00 Sodium 139 (136-145) mEq/L Potassium 4.4 (3.5-5.1) mEq/L Chloride 112 H (98-107) mEq/L Carbon Dioxide 21 L (23-29) mEq/L BUN 31 H (6-20) mg/dL Creatinine 1.29 (0.70-1.30) mg/dL Glucose 209 H (70-105) mg/dL Calcium 9.0 (8.6-10.3) mg/dL Calcium panel 06/09/18 Range/Units 04:00 Calcium 9.0 (8.6-10.3) mg/dL Phosphorus 1.7 L (2.7-4.5) mg/dL Pituitary panel 06/09/18 Range/Units 04:00 Sodium 139 (136-145) mEq/L Potassium 4.4 (3.5-5.1) mEq/L Chloride 112 H (98-107) mEq/L Carbon Dioxide 21 L (23-29) mEq/L BUN 31 H (6-20) mg/dL Creatinine 1.29 (0.70-1.30) mg/dL Glucose 209 H (70-105) mg/dL Calcium 9.0 (8.6-10.3) mg/dL Adrenal panel 06/09/18 Range/Units 04:00 Sodium 139 (136-145) mEq/L Potassium 4.4 (3.5-5.1) mEq/L Chloride 112 H (98-107) mEq/L Carbon Dioxide 21 L (23-29) mEq/L BUN 31 H (6-20) mg/dL Creatinine 1.29 (0.70-1.30) mg/dL Glucose 209 H (70-105) mg/dL Calcium 9.0 (8.6-10.3) mg/dL - Attending Attestation patient seen and examined. I have reviewed all pertinent labs, notes, and imaging. I agree with the above assessment and plan and wish to add the following... POD #4 s/p antrectomy with RNY reconstruction now with concern for duodenal stump leak; stable, afebrile; good UOP; no pressors; cont cares per ICU glucose control with goal for <150
--- NOTE | 2018-06-09 09:20 | Pulmonology Progress Note ---
<Britt Meier - Last Filed: 06/09/18 14:18> Date of Encounter: 06/09/18 Time of Encounter: 09:20 Assessment and Plan (1) Sepsis Current Visit: No Status: Acute Pt had fevers over the weekend, but they have since responded to tylenol and he has been normothermic since 06/07/18 with one temperature at 100.4 on 06/08/18 at 2008. He no longer requires vasopressors to maintain adequate MAP. Fi02 requirement is low at 30%, plan to begin smart care protocol for weaning of the ventilator. Continue antibiotics to cover E coli positive cultures and intra- abdominal abscess with consideration for allergies and renal function. Qualifiers: Sepsis type: sepsis due to unspecified organism Qualified Code(s): A41.9 - Sepsis, unspecified organism (2) Diabetes Current Visit: Yes Status: Chronic Blood glucose has been ranging in the low 200's to upper 180's with high dose insulin coverage. Continue to monitor. Add insulin drip as necessary. Hypoglycemia protocol in place. Qualifiers: Diabetes mellitus type: type 2 Diabetes mellitus prison insulin use: without prison use Diabetes mellitus complication status: with hyperglycemia Qualified Code(s): E11.65 - Type 2 diabetes mellitus with hyperglycemia (3) Perforated abdominal viscus Current Visit: No Status: Acute Pt is s/p gerri-en-Y bypass, SARBJIT drains in place, RN changing dressings and monitoring for signs of infection, continue antibiotic coverage and anti-fungal medication. Continue to monitor for decrease in SARBJIT drain output. (4) History of systemic candidiasis Current Visit: No Status: Acute Fluconazole 200mg IV daily under care of ID (5) DVT prophylaxis Current Visit: Yes Status: Acute Heparin 5000 units SQ TID Subjective Principal diagnosis: Septic shock Interval history: Pt had fevers over the weekend, was started on Tylenol Q4, normothermic since Saturday. SARBJIT drains continue to put out fluid, surgeon commented that inflammation will be resolved once drains stop putting out so much fluid. Vasopressors no longer necessary to maintain adequate MAP. Cultures - blood from 06/06 still pending, urine from 06/06 showed no growth, sputum from 06/07 was contaminated with many epithelial cells and culture was not performed. Pt continues on fluconazole 200mg TID and pip-hansel 3,375mg Q8 to cover for previous growth of E coli and intra-abdominal abscess, ID on board and continues these recommendations. Fi02 requirements remain low at 30% with pt overbreathing the vent backup rate slightly, plan to use smart care and move patient towards careful extubation as tolerated. Objective PUL Vital signs: Last Vital Signs Temp 98.2 F 06/09/18 07:00 Pulse 98 06/09/18 08:04 Resp 18 06/09/18 08:00 BP 115/77 06/09/18 08:00 Pulse Ox 100 06/09/18 08:00 General appearance: comatose Eyes: nonicteric ENT: oropharynx dry Effort: other (intubated and ventilated, mildly overbreathing the vent) Auscultation: bilateral: clear Cardiovascular: regular rate and rhythm Gastrointestinal: absent bowel sounds, soft Integumentary: other (BREANNE LE skin mottling) Extremities: no cyanosis, pulses normal (breanne DP 2+), edema (mild edema in all four extremities, non-pitting) unable to assess due to mental status Ventilator Settings Ventilator Settings: Ventilator Settings, Last 8 Hours Ventilator Tidal Volume 470 Setting Ventilator Tidal Volume 470 Setting Ventilator Tidal Volume 470 Setting Ventilator Tidal Volume 470 Setting Ventilator Tidal Volume 470 Setting Ventilator Tidal Volume 470 Setting Ventilator Tidal Volume 470 Setting Ventilator Tidal Volume 470 Setting Ventilator Tidal Volume 470 Setting Ventilator Tidal Volume 470 Setting Ventilator Respiratory Rate 18 Setting Ventilator Respiratory Rate 18 Setting Ventilator Respiratory Rate 18 Setting Ventilator Respiratory Rate 18 Setting Ventilator Respiratory Rate 18 Setting Ventilator Respiratory Rate 18 Setting Ventilator Respiratory Rate 18 Setting Ventilator Respiratory Rate 18 Setting Ventilator Respiratory Rate 18 Setting Ventilator Respiratory Rate 18 Setting Actual Respiratory Rate 19 Actual Respiratory Rate 18 Actual Respiratory Rate 18 Actual Respiratory Rate 18 Actual Respiratory Rate 23 Actual Respiratory Rate 21 Actual Respiratory Rate 20 Actual Respiratory Rate 22 Actual Respiratory Rate 19 Positive End Expiratory 5 Pressure Positive End Expiratory 5 Pressure Positive End Expiratory 5 Pressure Positive End Expiratory 5 Pressure Positive End Expiratory 5 Pressure Positive End Expiratory 5 Pressure Positive End Expiratory 5 Pressure Positive End Expiratory 5 Pressure Positive End Expiratory 5 Pressure Positive End Expiratory 5 Pressure Peak Inspiratory Airway 23 Pressure Peak Inspiratory Airway 23 Pressure Peak Inspiratory Airway 22 Pressure Peak Inspiratory Airway 29 Pressure Peak Inspiratory Airway 18 Pressure Peak Inspiratory Airway 8 Pressure Peak Inspiratory Airway 20 Pressure Peak Inspiratory Airway 22 Pressure Peak Inspiratory Airway 21 Pressure Results - Laboratory Findings CBC and BMP: 06/09/18 04:00 06/09/18 04:00 ABG ABG pH 7.26 pH Units (7.32-7.45) L 09/10/18 04:31 ABG pCO2 49 mmHg (35-45) H 06/09/18 04:31 ABG pO2 112 mmHg (85-104) H 06/09/18 04:31 ABG O2 Saturation 98 % (95-98) 06/09/18 04:31 PT/INR, D-dimer PT 15.1 Seconds (9.4-12.1) H 06/07/18 06:49 Abnormal lab findings: Abnormal lab results RBC 2.82 M/mcL (4.19-5.50) L 06/09/18 04:00 Hgb 7.9 g/dL (12.9-16.9) L 06/09/18 04:00 Hct 25.5 % (37.5-50.1) L 06/09/18 04:00 MCHC 31.0 g/dL (31.6-35.5) L 06/09/18 04:00 RDW 15.9 % (11.5-14.5) H 06/09/18 04:00 Plt Count 135 K/mcL (140-400) L 06/09/18 04:00 MPV 9.2 fL (9.4-12.4) L 06/09/18 04:00 Immature Gran % 8.0 % (0-4) H 06/08/18 04:35 Neutrophils # 9.1 K/mcL (1.6-8.9) H 06/08/18 04:35 Lymphocytes # 0.4 K/mcL (0.6-4.6) L 06/08/18 04:35 Nucleated RBCs/100 WBC 0.2 /100 WBC (0) H 06/08/18 04:35 Toxic Granulation Present (Not Present) A 06/08/18 04:35 Large Platelets Present (Not Present) A 06/07/18 03:30 PT 15.1 Seconds (9.4-12.1) H 06/07/18 06:49 ABG pH 7.26 pH Units (7.32-7.45) L 06/09/18 04:31 ABG pCO2 49 mmHg (35-45) H 06/09/18 04:31 ABG pO2 112 mmHg (85-104) H 06/09/18 04:31 ABG Base Excess -5 mEq/L (-2 to 3) L 06/09/18 04:31 Chloride 112 mEq/L (98-107) H 06/09/18 04:00 Carbon Dioxide 21 mEq/L (23-29) L 06/09/18 04:00 BUN 31 mg/dL (6-20) H 06/09/18 04:00 Est GFR (Non-Af Amer) 58 (> 60) L 06/09/18 04:00 Glucose 209 mg/dL (70-105) H 06/09/18 04:00 POC Glucose 245 mg/dL (70-99) H 06/08/18 23:04 Calculated Osmolality 301 (280-300) H 06/09/18 04:00 Phosphorus 1.7 mg/dL (2.7-4.5) L 06/09/18 04:00 Direct Bilirubin 0.9 mg/dL (0.0-0.2) H 06/08/18 04:35 AST 10 Units/L (13-39) L 06/08/18 04:35 Serum Total Protein 4.6 g/dL (6.4-8.9) L 06/08/18 04:35 Albumin 2.8 g/dL (3.5-5.7) L 06/08/18 04:35 Globulin 1.8 g/dL (2.4-3.5) L 06/08/18 04:35 Triglycerides 332 mg/dL (< 150) H 06/04/18 05:02 Gastrin 117 pg/mL (0-100) H 06/03/18 21:23 Urine Clarity Cloudy (Clear) A 06/02/18 09:18 Urine Protein 100 mg/dL (Neg-Trace) H 06/02/18 09:18 Urine Blood Large (Negative) H 06/02/18 09:18 Ur Leukocyte Esterase Moderate (Negative) H 06/02/18 09:18 Urine Microscopic RBC TNTC per hpf (0-3) H 06/02/18 09:18 Urine Microscopic WBC 15-30 per hpf (0-3) H 06/02/18 09:18 Ur Squamous Epith Cells Many per lpf (None-Few) H 06/02/18 09:18 Ur Culture Indicated? NO. (NO) A 06/02/18:18 Enterobacteriac sp PCR DETECTED (Not Detect) A 06/02/18 09:18 E. coli (PCR) DETECTED (Not Detect) A 06/02/18 09:18 - Microbiology Findings Microbiology Findings: Microbiology, Last 48 Hours 06/02/18 20:12 Anaerobic Culture - Final Peritoneal Fluid No anaerobes were recovered. 06/06/18 09:20 Urine Culture - Final Urine,[place] No growth. - Diagnostic Findings Chest x-ray: report reviewed, image reviewed U/S of Legs: report reviewed - Clinical Findings Intake & Output: Intake & Output 06/08/18 06/09/18 06/09/18 23:59 07:59 15:59 Intake Total 518.3 / 518.3 513.6 / 513.6 0 / 0 Output Total 1265 / 1265 1010 / 1010 505 / 505 Balance -746.7 / -746.7 -496.4 / -496.4 -505 / -505 - VTE Documentation of Mechanical Device: Intermittent pneumatic compression device Consult Discharge Plan - Plan Referrals: Zafar Hinton MD [Primary Care Provider] - <Tigist Thomas S - Last Filed: 06/09/18 14:33> Date of Encounter: 06/09/18 Objective PUL Vital signs: Last Vital Signs Temp 98.0 F 06/09/18 11:00 Pulse 96 06/09/18 14:10 Resp 18 06/09/18 14:10 BP 120/83 06/09/18 14:10 Pulse Ox 99 06/09/18 14:10 Ventilator Settings Ventilator Settings: Ventilator Settings, Last 8 Hours Ventilator Tidal Volume 470 Setting Ventilator Tidal Volume 470 Setting Ventilator Tidal Volume 470 Setting Ventilator Tidal Volume 470 Setting Ventilator Tidal Volume 470 Setting Ventilator Tidal Volume 470 Setting Ventilator Respiratory Rate 18 Setting Ventilator Respiratory Rate 18 Setting Ventilator Respiratory Rate 18 Setting Ventilator Respiratory Rate 18 Setting Ventilator Respiratory Rate 18 Setting Ventilator Respiratory Rate 18 Setting Actual Respiratory Rate 20 Actual Respiratory Rate 20 Actual Respiratory Rate 18 Actual Respiratory Rate 19 Actual Respiratory Rate 18 Actual Respiratory Rate 18 Positive End Expiratory 5 Pressure Positive End Expiratory 5 Pressure Positive End Expiratory 5 Pressure Positive End Expiratory 5 Pressure Positive End Expiratory 5 Pressure Positive End Expiratory 5 Pressure Peak Inspiratory Airway 17 Pressure Peak Inspiratory Airway 21 Pressure Peak Inspiratory Airway 22 Pressure Peak Inspiratory Airway 23 Pressure Peak Inspiratory Airway 23 Pressure Peak Inspiratory Airway 22 Pressure Results - Laboratory Findings CBC and BMP: 06/09/18 04:00 06/09/18 04:00 ABG ABG pH 7.26 pH Units (7.32-7.45) L 06/09/18 04:31 ABG pCO2 49 mmHg (35-45) H 06/09/18 04:31 ABG pO2 112 mmHg (85-104) H 06/09/18 04:31 ABG O2 Saturation 98 % (95-98) 06/09/18 04:31 PT/INR, D-dimer PT 15.1 Seconds (9.4-12.1) H 06/07/18 06:49 Abnormal lab findings: Abnormal lab results RBC 2.82 M/mcL (4.19-5.50) L 06/09/18 04:00 Hgb 7.9 g/dL (12.9-16.9) L 06/09/18 04:00 Hct 25.5 % (37.5-50.1) L 06/09/18 04:00 MCHC 31.0 g/dL (31.6-35.5) L 06/09/18 04:00 RDW 15.9 % (11.5-14.5) H 06/09/18 04:00 Plt Count 135 K/mcL (140-400) L 06/09/18 04:00 MPV 9.2 fL (9.4-12.4) L 06/09/18 04:00 Immature Gran % 8.0 % (0-4) H 06/08/18 04:35 Neutrophils # 9.1 K/mcL (1.6-8.9) H 06/08/18 04:35 Lymphocytes # 0.4 K/mcL (0.6-4.6) L 06/08/18 04:35 Nucleated RBCs/100 WBC 0.2 /100 WBC (0) H 06/08/18 04:35 Toxic Granulation Present (Not Present) A 06/08/18 04:35 Large Platelets Present (Not Present) A 06/07/18 03:30 PT 15.1 Seconds (9.4-12.1) H 06/07/18 06:49 ABG pH 7.26 pH Units (7.32-7.45) L 06/09/18 04:31 ABG pCO2 49 mmHg (35-45) H 06/09/18 04:31 ABG pO2 112 mmHg (85-104) H 06/09/18 04:31 ABG Base Excess -5 mEq/L (-2 to 3) L 06/09/18 04:31 Chloride 112 mEq/L (98-107) H 06/09/18 04:00 Carbon Dioxide 21 mEq/L (23-29) L 06/09/18 04:00 BUN 31 mg/dL (6-20) H 06/09/18 04:00 Est GFR (Non-Af Amer) 58 (> 60) L 06/09/18 04:00 Glucose 209 mg/dL (70-105) H 06/09/18 04:00 POC Glucose 245 mg/dL (70-99) H 06/08/18 23:04 Calculated Osmolality 301 (280-300) H 06/09/18 04:00 Phosphorus 1.7 mg/dL (2.7-4.5) L 06/09/18 04:00 Direct Bilirubin 0.9 mg/dL (0.0-0.2) H 06/08/18 04:35 AST 10 Units/L (13-39) L 06/08/18 04:35 Serum Total Protein 4.6 g/dL (6.4-8.9) L 06/08/18 04:35 Albumin 2.8 g/dL (3.5-5.7) L 06/08/18 04:35 Globulin 1.8 g/dL (2.4-3.5) L 06/08/18 04:35 Triglycerides 332 mg/dL (< 150) H 06/04/18 05:02 Gastrin 117 pg/mL (0-100) H 06/03/18 21:23 Urine Clarity Cloudy (Clear) A 06/02/18 09:18 Urine Protein 100 mg/dL (Neg-Trace) H 06/02/18 09:18 Urine Blood Large (Negative) H 06/02/18 09:18 Ur Leukocyte Esterase Moderate (Negative) H 06/02/18 09:18 Urine Microscopic RBC TNTC per hpf (0-3) H 06/02/18 09:18 Urine Microscopic WBC 15-30 per hpf (0-3) H 06/02/18 09:18 Ur Squamous Epith Cells Many per lpf (None-Few) H 06/02/18 09:18 Ur Culture Indicated? NO. (NO) A 06/02/18 09:18 Enterobacteriac sp PCR DETECTED (Not Detect) A 06/02/18 09:18 E. coli (PCR) DETECTED (Not Detect) A 06/02/18 09:18 - Microbiology Findings Microbiology Findings: Microbiology, Last 48 Hours 06/04/18 09:10 Blood Culture - Final Peripheral Venipuncture No growth. Final report. 06/04/18 09:12 Blood Culture - Final Peripheral Venipuncture No growth. Final report. 06/02/18 20:12 Anaerobic Culture - Final Peritoneal Fluid No anaerobes were recovered. 06/06/18 09:20 Urine Culture - Final Urine,[place] No growth. - Clinical Findings Intake & Output: Intake & Output 06/08/18 06/09/18 06/09/18 23:59 07:59 15:59 Intake Total 518.3 / 518.3 513.6 / 513.6 400 / 400 Output Total 1265 / 1265 1010 / 1010 1145 / 1145 Balance -746.7 / -746.7 -496.4 / -496.4 -745 / -745 - Attending Attestation I saw and evaluated this patient and my medical decision-making was reviewed with the Resident Physician. I agree with the documented findings, disposition and treatment plan as described except to the extent set forth below. We independently had [id number] contact with the patient I spent 35 minutes of Critical Care time with this patient. It involved decision making of high complexity to assess, manipulate, and support vital organ system failure and/or to prevent further life threatening deterioration of the patient's condition. The time involved in the performance of separately reportable procedures was not counted toward critical care time. Patient seen and examined at bedside Labs, radiology, chart personally reviewed. Management was reviewed during multidisciplinary critical care rounds. FINANCIAL AID OFFICER: Patient has encephalopathy secondary to toxic/metabolic we will reduce the sedation and see how he wakes up is no focal neurological findings will hold off further imaging and EEG for now but absent sensation is always a possibility in this population. Pulm: As Acceptable Oxygenation and Ventilation the Patient Is Waking up Appropriately We Will Do Spontaneous Breathing Trial Patient Will Be a Candidate for Smart Pressure Support Ventilation for liberation Cards: Septic shock resolved he is hemodynamically stable FEN-GI: Diet according to nutrition Renal: Labs and output reviewed ID: Patient is on broad-spectrum antibiotics for Escherichia coli bacteremia due to intra-abdominal source and also on antifungal for previous history of systemic candidiasis and in the background of perforated viscus patient is followed by ID Heme/Onc: Thromboprophylaxis Endo: Glucose Monitored Integ/MSK: Skin Care per routine ICU Nursing Protocol to prevent ulcers. Lines: All lines examined without evidence of infection : Dispo: Critically ill CODE: Full code
[2018-06-09] MEDS: Chlorhexidine Rinse 15 ML MOUTHWASH MM SCH ×2 (09:21→21:31)
[2018-06-09] MEDS: Fluconazole 200 MG/100 ML 200 MG/100 ML BAG IVPB SCH (09:22)
--- NOTE | 2018-06-09 11:10 | Infectious Disease Progress No ---
Date of Encounter: 06/09/18 Time of Encounter: 11:07 - Assessment and Plan (1) Severe sepsis Current Visit: Yes Status: Acute The patient had 3 sepsis criteria on admission. Likely secondary to bacteremia and intra-abdominal abscess. New onset likely secondary to recent surgery. Improved. Tachycardia, hypotension, and leukocytosis improved. Off vasopressors currently. Blood cultures obtained 06/02/18 her +1 out of 2 sets for Escherichia coli per PCR. Repeat blood cultures drawn 06/04/18 are NGTD 2 sets. Repeat blood cultures drawn 06/06/18 are NGTD x 2 sets. (2) Bacteremia due to Gram-negative bacteria Current Visit: Yes Status: Acute Causative organism: Escherichia coli per PCR. Source likely intra-abdominal abscess. Blood cultures obtained 06/02/18 are +1 out of 2 sets for Escherichia coli per PCR. Repeat blood cultures 06/04/18 are NGTD 2 sets. Repeat blood cultures 06/06/18 are NGTD x 2 sets. Continue Zosyn 3.375 g IV every 8 hours. Duration of treatment depends on the clinical picture. Monitor renal function and a productive toxicity and dose adjust antibiotics. (3) Intra-abdominal abscess Current Visit: No Status: Acute Likely secondary to perforated viscus. Causative organism E. coli. POD #7 Status post exploratory laparotomy, drainage of intra-abdominal abscess [address] Maria. Operative note was reviewed. Gross purulence noted and dropped, but no succus, bile, or staining was seen in the abdominal cavity. Continue Zosyn 3.375 g IV every 8 hours for now. Continue fluconazole 200mg IV daily. Dose-adjust antibiotics based on creatinine clearance. Duration of treatment depends on the clinical picture. Wound care and activity restrictions per the surgery team. (4) Perforated abdominal viscus Current Visit: No Status: Acute Initially was thought to likely be secondary to NSAID use. Concern that this perforation may be secondary to the patch they placed previously was laying under pocket of pus which kept irritating it and cause perforation again. POD #4 status post exp lap with antrectomy, closure of duodenal stump, and Gerri en Y. Continue Zosyn as stated above. Continue fluconazole 200 mg IV daily. Duration of treatment depends on the clinical picture. Monitor renal and liver function and dose-adjust antibiotics. (5) Acute on chronic renal failure Current Visit: Yes Status: Resolved Likely secondary to severe sepsis. Improved. Continue to trend. Dose adjust antibiotics based on creatinine clearance. Avoid nephrotoxins as able. Qualifiers: Acute renal failure type: unspecified Chronic kidney disease stage: unspecified stage Qualified Code(s): N17.9 - Acute kidney failure, unspecified ; N18.9 - Chronic kidney disease, unspecified (6) Pneumoperitoneum Current Visit: Yes Status: Acute Secondary to perforated viscus. Further management per the general surgery team. (7) Allergy to multiple antibiotics Current Visit: Yes Status: Acute (8) VRE (vancomycin-resistant Enterococci) Current Visit: No Status: Inactive Patient has a history of VRE in the urine. Continue contact precautions per hospital protocol. - Subjective Interval history: Patient seen and examined. Weekend notes reviewed. Currently off vasopressors. Status post exp lap with antrectomy, closure of duodenal stump, and gerri en Y reconstruction 06/05/18 . Patient currently intubated and sedated on the ventilator. Sedation increased so patient not responsive. No new issues per nursing. Infect Dis PN-Objective Data - Labs CBC & Chem 7: 06/09/18 04:00 06/10/18 03:14 Labs: Laboratory Results - last 24 hr 06/07/18 06/08/18 06/08/18 23:51 03:50 08:47 WBC RBC Hgb Hct MCV MCH MCHC RDW Plt Count MPV Sample Site ABG pH ABG pCO2 ABG pO2 ABG HCO3 ABG Total CO2 ABG O2 Saturation ABG Base Excess Jaun Test Respiration Rate O2 Delivery Device Blood Gas Modality Inspired O2 Tidal Volume PEEP Sodium Potassium Chloride Carbon Dioxide BUN Creatinine Est GFR ( Amer) Est GFR (Non-Af Amer) BUN/Creatinine Ratio Glucose POC Glucose 365 H 365 H 396 H Calculated Osmolality Calcium Venous Ioniz Calcium Phosphorus Magnesium 06/08/18 06/08/18 06/08/18 10:25 11:19 12:09 WBC RBC Hgb Hct MCV MCH MCHC RDW Plt Count MPV Sample Site ABG pH ABG pCO2 ABG pO2 ABG HCO3 ABG Total CO2 ABG O2 Saturation ABG Base Excess Jaun Test Respiration Rate O2 Delivery Device Blood Gas Modality Inspired O2 Tidal Volume PEEP Sodium Potassium Chloride Carbon Dioxide BUN Creatinine Est GFR ( Amer) Est GFR (Non-Af Amer) BUN/Creatinine Ratio Glucose POC Glucose 406 H* 399 H 407 H* Calculated Osmolality Calcium Venous Ioniz Calcium Phosphorus Magnesium 06/08/18 06/08/18 06/08/18 13:04 14:11 15:10 WBC RBC Hgb Hct MCV MCH MCHC RDW Plt Count MPV Sample Site ABG pH ABG pCO2 ABG pO2 ABG HCO3 ABG Total CO2 ABG O2 Saturation ABG Base Excess Jaun Test Respiration Rate O2 Delivery Device Blood Gas Modality Inspired O2 Tidal Volume PEEP Sodium 135 L Potassium 4.6 Chloride 111 H Carbon Dioxide 20 L BUN 37 H Creatinine 1.63 H Est GFR ( Amer) 54 L Est GFR (Non-Af Amer) 44 L BUN/Creatinine Ratio 23 Glucose 345 H POC Glucose 380 H 364 H Calculated Osmolality 302 H Calcium 8.5 L Venous Ioniz Calcium Phosphorus Magnesium 06/08/18 06/08/18 06/08/18 15:27 16:07 17:05 WBC RBC Hgb Hct MCV MCH MCHC RDW Plt Count MPV Sample Site ABG pH ABG pCO2 ABG pO2 ABG HCO3 ABG Total CO2 ABG O2 Saturation ABG Base Excess Jaun Test Respiration Rate O2 Delivery Device Blood Gas Modality Inspired O2 Tidal Volume PEEP Sodium Potassium Chloride Carbon Dioxide BUN Creatinine Est GFR ( Amer) Est GFR (Non-Af Amer) BUN/Creatinine Ratio Glucose POC Glucose 327 H 311 H 313 H Calculated Osmolality Calcium Venous Ioniz Calcium Phosphorus Magnesium 06/08/18 06/08/18 06/08/18 18:10 19:13 19:49 WBC RBC Hgb Hct MCV MCH MCHC RDW Plt Count MPV Sample Site ABG pH ABG pCO2 ABG pO2 ABG HCO3 ABG Total CO2 ABG O2 Saturation ABG Base Excess Jaun Test Respiration Rate O2 Delivery Device Blood Gas Modality Inspired O2 Tidal Volume PEEP Sodium Potassium Chloride Carbon Dioxide BUN Creatinine Est GFR ( Amer) Est GFR (Non-Af Amer) BUN/Creatinine Ratio Glucose POC Glucose 303 H 295 H 295 H Calculated Osmolality Calcium Venous Ioniz Calcium Phosphorus Magnesium 06/08/18 06/08/18 06/08/18 21:04 21:59 23:04 WBC RBC Hgb Hct MCV MCH MCHC RDW Plt Count MPV Sample Site ABG pH ABG pCO2 ABG pO2 ABG HCO3 ABG Total CO2 ABG O2 Saturation ABG Base Excess Jaun Test Respiration Rate O2 Delivery Device Blood Gas Modality Inspired O2 Tidal Volume PEEP Sodium Potassium Chloride Carbon Dioxide BUN Creatinine Est GFR ( Amer) Est GFR (Non-Af Amer) BUN/Creatinine Ratio Glucose POC Glucose 249 H 239 H 245 H Calculated Osmolality Calcium Venous Ioniz Calcium Phosphorus Magnesium 06/09/18 06/09/18 06/09/18 04:00 04:00 04:07 WBC 10.1 RBC 2.82 L Hgb 7.9 L Hct 25.5 L MCV 90.4 MCH 28.0 MCHC 31.0 L RDW 15.9 H Plt Count 135 L MPV 9.2 L Sample Site ABG pH ABG pCO2 ABG pO2 ABG HCO3 ABG Total CO2 ABG O2 Saturation ABG Base Excess Jaun Test Respiration Rate O2 Delivery Device Blood Gas Modality Inspired O2 Tidal Volume PEEP Sodium 139 Potassium 4.4 Chloride 112 H Carbon Dioxide 21 L BUN 31 H Creatinine 1.29 Est GFR ( Amer) > 60 Est GFR (Non-Af Amer) 58 L BUN/Creatinine Ratio 24 Glucose 209 H POC Glucose Calculated Osmolality 301 H Calcium 9.0 Venous Ioniz Calcium 1.32 Phosphorus 1.7 L Magnesium 1.8 06/09/18 04:31 WBC RBC Hgb Hct MCV MCH MCHC RDW Plt Count MPV Sample Site R Radial ABG pH 7.26 L ABG pCO2 49 H ABG pO2 112 H ABG HCO3 22 ABG Total CO2 23 ABG O2 Saturation 98 ABG Base Excess -5 L Jaun Test N/A Respiration Rate 18 O2 Delivery Device Adult Vent Blood Gas Modality PRVC Inspired O2 30.0 Tidal Volume 470 PEEP 5 Sodium Potassium Chloride Carbon Dioxide BUN Creatinine Est GFR ( Amer) Est GFR (Non-Af Amer) BUN/Creatinine Ratio Glucose POC Glucose Calculated Osmolality Calcium Venous Ioniz Calcium Phosphorus Magnesium Cultures: Cultures 06/04/18 09:10 Blood Culture - Final Peripheral Venipuncture No growth. Final report. 06/04/18 09:12 Blood Culture - Final Peripheral Venipuncture No growth. Final report. 06/02/18 20:12 Anaerobic Culture - Final Peritoneal Fluid No anaerobes were recovered. 06/06/18 09:20 Urine Culture - Final Urine,[place] No growth. 06/07/18 03:48 Sputum Culture - Final Sputum 06/06/18 03:35 Blood Culture - Preliminary Peripheral Venipuncture Culture is incubating and being continuously monitored for growth. Final report to follow. 06/06/18 01:42 Blood Culture - Preliminary Peripheral Venipuncture Culture is incubating and being continuously monitored for growth. Final report to follow. 06/02/18 20:12 Body Fluid Culture - Final Peritoneal Fluid Escherichia coli - Impressions Impressions Chest X-Ray 06/09/18 04:00 IMPRESSION: Stable life support device positioning. Pulmonary hypoinflation with bronchovascular crowding and fluctuating basilar atelectasis. D/ / Arsalan Mast / Arsalan Mast Interpreting Provider: Arsalan Mast Exam - Constitutional Vitals: Temp Pulse Resp BP Pulse Ox 98.2 F 96 18 118/78 100 06/09/18 07:00 06/09/18 10:01 06/09/18 10:01 06/09/18 10:01 06/09/18 10:01 General appearance: morbidly obese, no acute distress, no febrile - Head Head exam: Present: atraumatic, normal inspection, normocephalic - Eye Eye exam: Present: normal appearance, PERRL Pupils: Present: normal accommodation - ENT ENT exam: Present: mucous membranes moist - Neck Neck exam: Present: normal inspection - Respiratory Respiratory exam: Present: CTAB. Absent: rales, respiratory distress, rhonchi, wheezes Additional comments: O2 via the ventilator. - Cardiovascular Cardiovascular exam: Present: +S1, +S2, tachycardia. Absent: irregular rhythm - GI/Abdominal GI/Abdominal exam: Present: distended, hypoactive bowel sounds, soft Additional comments: Midline abdominal incision dressing intact with small amount of shadow drainage. SARBJIT drain noted to the left abdomen with serous drainage. SARBJIT drain noted to the right abdomen with bilious contents. OG tube with moderate amount of dark brown bilious drainage. [place] catheter noted to the draining clear yellow urine. - Extremities Exam Extremities exam: Present: pedal edema (1+ BLE). Absent: joint swelling, tenderness - Neurological Exam Neurological exam: Present: altered (Sedated) - Skin Skin exam: Present: dry, intact, normal color, pallor, warm - Additional findings Additional findings: PICC line noted to the RUE with transparent dressing C/D/I. - VTE Documentation of Mechanical Device: Intermittent pneumatic compression device Consult Discharge Plan - Plan Referrals: Zafar Hinton MD [Primary Care Provider] - - Attending Attestation I examined this patient and my medical decision-making was reviewed with the Resident Physician. I agree with the documented findings, disposition and treatment plan as described except to the extent set forth below.
[2018-06-09] MEDS ORDERED: Clinimix E 5%-15% SOLUTION 2,000 ML, Parenteral Amino Acid 10% 200 ML with MVI, adult ... IVC SCH (17:00)
[2018-06-09] MEDS: Pantoprazole 40 MG VIAL IVP SCH (18:14)
[2018-06-10] MEDS: Piperacillin/Tazobactam 3.375 GM in 0.9 % Sodium Chloride Mini Bag 100 ML IVPB SCH ×4 (00:09→23:45)
[2018-06-10] MEDS: Artificial Tears SOLN 15 ML BOTTLE BOTH EYES SCH ×7 (00:12→23:45)
[2018-06-10] MEDS: FentaNYL (PF) 1,000 MCG in 0.9 % Sodium Chloride 80 ML IVC SCH ×2 (00:26→21:23)
[2018-06-10 03:51] LABS: BUN/Creatinine Ratio 31 (6-26); Blood Urea Nitrogen 32 mg/dL (6-20); Calcium 9.3 mg/dL (8.6-10.3); Carbon Dioxide 22 mEq/L (23-29); Chloride 112 mEq/L (98-107); Glucose 119 mg/dL (70-105); Magnesium 1.5 mg/dL (1.6-2.6); Osmolality,Calculated 302 (280-300); Phosphorous 2.4 mg/dL (2.7-4.5); Potassium 4.4 mEq/L (3.5-5.1); Sodium 142 mEq/L (136-145); Triglycerides 341 mg/dL (< 150); eGFR For Non-African Americans > 60 (> 60)
[2018-06-10] MEDS: Dexmedetomidine HCl 400 MCG/100 ML MLS IVC SCH ×3 (04:10→19:52)
[2018-06-10] MEDS: *HR* Heparin 5,000 UNIT/ML VIAL SQ SCH ×3 (04:33→20:47)
[2018-06-10] MEDS: Pantoprazole 40 MG VIAL IVP SCH ×2 (04:33→18:03)
[2018-06-10 04:54] LABS: ABG Base Excess -4 mEq/L (-2 to 3); ABG HCO3 22 mEq/L (21-27); ABG Oxygen Saturation 98 % (95-98); ABG PCO2 41 mmHg (35-45); ABG PH 7.33 pH Units (7.32-7.45); ABG PO2 107 mmHg (85-104); ABG TCO2 23 mEq/L (20-26); Blood Gas Modality ASSIST CONTROL; Blood Gas PEEP 5 cm H2O; Blood Gas Respiration Rate 18; Blood Gas VT 470 cc
--- NOTE | 2018-06-10 07:25 | General Surgery Progress Note ---
<Pedro Ocasio R - Last Filed: 06/10/18 07:22> Date of Encounter: 06/10/18 Time of Encounter: 07:22 - Assessment and Plan (1) Perforated abdominal viscus Current Visit: No Status: Acute POD #5 s/p exploratory laparotomy, antrectomy, gerri en Y reconstruction with Drs. Serrano and Mary on 06/05/2018 Patient remains sedated and intubated. Bilious Rt SARBJIT drainage thinner today off pressors, afebrile, tachycardia resolving Plan: Continue CCU care and medical management Wean sedation and vent as tolerated Pull NG back today, to LIWS Continue antibiotics, antifungal Continue TPN Insulin as needed for glycemic control PPI/ dvt prophylaxis Comfort care and pain management Wound care daily Monitor drain and NG output (2) Diabetes Current Visit: Yes Status: Chronic Improved control with recent POC checks in the mid 100's continued management per ccu team Qualifiers: Diabetes mellitus type: type 2 Diabetes mellitus alf insulin use: without alf use Diabetes mellitus complication status: with hyperglycemia Qualified Code(s): E11.65 - Type 2 diabetes mellitus with hyperglycemia (3) Acute on chronic renal failure Current Visit: Yes Status: Resolved Creatinine continues to improved 1.04 today Uop improved continue to monitor and replete lytes as needed Qualifiers: Acute renal failure type: unspecified Chronic kidney disease stage: unspecified stage Qualified Code(s): N17.9 - Acute kidney failure, unspecified ; N18.9 - Chronic kidney disease, unspecified Subjective Patient reports: other (Remains sedated and intubated) Narrative: Spoke with ICU care team. No acute events overnight. Doesn't yet follow commands and remains on ventilator. Objective Vital Signs - Last 8 Hours Temp Pulse Resp BP Pulse Ox 06/10/18 07:15 75 06/10/18 07:00 78 18 102/70 97 06/10/18 06:00 78 20 100/68 98 06/10/18 05:14 97.4 F L 06/10/18 05:09 20 103/69 98 06/10/18 04:30 91 20 106/70 99 06/10/18 03:31 21 157/103 98 06/10/18 03:00 84 21 151/93 98 06/10/18 02:00 78 18 132/90 99 06/10/18 01:30 79 18 145/85 100 06/10/18 01:00 18 109/74 98 06/10/18 00:00 89 19 104/70 98 06/09/18 23:53 99.2 F Intake and Output 06/09/18 06/09/18 06/10/18 15:59 23:59 07:59 Intake Total 1146 / 1146 361.8 / 361.8 581.8 / 581.8 Output Total 1675 / 1675 765 / 765 470 / 470 Balance -529 / -529 -403.2 / -403.2 111.8 / 111.8 Intake: IV Fluids 1146 / 1146 361.8 / 361.8 581.8 / 581.8 PRECEDEX Premix 400 mcg In 100 3.3 / 3.3 96.7 / 96.7 ml @ 0.2 MCG/KG/HR 5.48 mls/hr IVC .[id number] [place] Rx#:[id number] FentaNYL (PF) 1,000 MCG In 0.9 200 / 200 71.2 / 71.2 53.3 / 53.3 % Sodium Chloride 80 ML @ 50 MCG/HR 5 mls/hr IVC CONT [facility] Rx #:[id number] HumuLIN R 250 UNIT In 0.9 % 282 / 282 187.3 / 187.3 81.8 / 81.8 Sodium Chloride 250 ML @ Titrate IVC CONT [facility] Rx#: [id number] Protonix 40 MG In 0.9 % Sodium 100 / 100 Chloride (Mini-Bag +) 100 ML @ 20 mls/hr IVC .Q5H [facility] Rx#: [id number] Intralipid 20% 250 ML @ 21 mls/ 250 / 250 hr IVPB MoWeFr@1700 [place] Rx#: [id number] Diflucan Premix 200 MG/100 ML 100 / 100 200 mg In 100 ml @ 100 mls/hr IVPB DAILY [place] Rx#:[id number] Magnesium Sulfate 2 GM In 0.9 % 104 / 104 Sodium Chloride 100 ML @ 52 mls/hr IVPB Q6H [facility] Rx#: [id number] Zosyn 3.375 GM In 0.9 % Sodium 100 / 100 100 / 100 100 / 100 Chloride (Mini-Bag +) 100 ML @ 25 mls/hr IVPB Q8HR [place] Rx#: [id number] Sodium Phosphate 30 MMOL In 0.9 260 / 260 % Sodium Chloride 250 ML @ 42 mls/hr IVPB Q12H [facility] Rx#: [id number] Oral 0 / 0 Output: Gastric Tube Lavage Amount 0 / 0 Right Nare 0 / 0 Catheter 1350 / 1350 600 / 600 350 / 350 Gastric Drainage 50 / 50 Wound Drainage 325 / 325 115 / 115 120 / 120 Left Abdomen 0 / 0 5 / 5 Right Abdomen 325 / 325 110 / 110 120 / 120 Other: Weight 113.7 kg Blood Glucose* 176 137 133 - General physical appearance well developed, chronically ill, other - Eyes PERRL - ENT normal mucosa, atraumatic, normocephalic - Neck Neck exam: trachea midline - Respiratory normal expansion - Cardiovascular Cardiovascular exam: Present: RRR - Abdomen Abdomen: Present: soft, wound (Right SARBJIT draining brown/bilious color fluid, 150 cc in last 12 hrs. Left SARBJIT 10 mL serous drainage). Absent: bowel sounds present , distended, guarding - Incision Incision: Present: clean and dry, open (areas of incision open with gauze packed for w[place]) - Integumentary no rash - Neurologic other (sedated) - Musculoskeletal other (unable to assess) - Psychiatric other (unable to assess) - Labs 06/09/18 04:00 06/10/18 03:14 Diabetes panel 06/10/18 Range/Units 03:14 Sodium 142 (136-145) mEq/L Potassium 4.4 (3.5-5.1) mEq/L Chloride 112 H (98-107) mEq/L Carbon Dioxide 22 L (23-29) mEq/L BUN 32 H (6-20) mg/dL Creatinine 1.04 (0.70-1.30) mg/dL Glucose 119 H (70-105) mg/dL Calcium 9.3 (8.6-10.3) mg/dL Triglycerides 341 H (< 150) mg/dL Calcium panel 06/10/18 Range/Units 03:14 Calcium 9.3 (8.6-10.3) mg/dL Phosphorus 2.4 L (2.7-4.5) mg/dL Pituitary panel 06/10/18 Range/Units 03:14 Sodium 142 (136-145) mEq/L Potassium 4.4 (3.5-5.1) mEq/L Chloride 112 H (98-107) mEq/L Carbon Dioxide 22 L (23-29) mEq/L BUN 32 H (6-20) mg/dL Creatinine 1.04 (0.70-1.30) mg/dL Glucose 119 H (70-105) mg/dL Calcium 9.3 (8.6-10.3) mg/dL Adrenal panel 06/10/18 Range/Units 03:14 Sodium 142 (136-145) mEq/L Potassium 4.4 (3.5-5.1) mEq/L Chloride 112 H (98-107) mEq/L Carbon Dioxide 22 L (23-29) mEq/L BUN 32 H (6-20) mg/dL Creatinine 1.04 (0.70-1.30) mg/dL Glucose 119 H (70-105) mg/dL Calcium 9.3 (8.6-10.3) mg/dL - VTE Documentation of Mechanical Device: Intermittent pneumatic compression device Consult Discharge Plan - Plan Referrals: Zafar Hinton MD [Primary Care Provider] - <Benedict Serrano - Last Filed: 06/10/18 18:14> Date of Encounter: 06/10/18 - Assessment and Plan (1) Peritonitis Current Visit: Yes Status: Acute Objective Vital Signs - Last 8 Hours Temp Pulse Resp BP Pulse Ox 06/10/18 18:00 116 24 177/104 99 06/10/18 17:34 25 166/97 99 06/10/18 17:16 100 F H 116 26 176/104 06/10/18 16:06 24 182/108 96 06/10/18 16:00 115 28 182/108 96 06/10/18 14:56 104 26 199/98 98 06/10/18 14:00 98 24 189/102 98 06/10/18 13:42 25 169/108 98 06/10/18 13:00 81 20 110/66 99 06/10/18 12:05 99 F 06/10/18 12:00 68 20 120/71 99 06/10/18 11:38 24 193/106 99 06/10/18 11:00 72 26 145/90 99 Intake and Output 06/10/18 06/10/18 06/10/18 07:59 15:59 23:59 Intake Total 581.8 / 581.8 353.9 / 353.9 Output Total 470 / 470 775 / 775 708 / 708 Balance 111.8 / 111.8 -421.1 / -421.1 -708 / -708 Intake: IV Fluids 581.8 / 581.8 353.9 / 353.9 PRECEDEX Premix 400 mcg In 100 96.7 / 96.7 100 / 100 ml @ 0.2 MCG/KG/HR 5.48 mls/hr IVC .[id number] [facility] Rx#:[id number] FentaNYL (PF) 1,000 MCG In 0.9 53.3 / 53.3 % Sodium Chloride 80 ML @ 50 MCG/HR 5 mls/hr IVC CONT [facility] Rx #:[id number] HumuLIN R 250 UNIT In 0.9 % 81.8 / 81.8 53.9 / 53.9 Sodium Chloride 250 ML @ Titrate IVC CONT [facility] Rx#: [id number] Intralipid 20% 250 ML @ 21 mls/ 250 / 250 hr IVPB MoWeFr@1700 [facility] Rx#: [id number] Diflucan Premix 200 MG/100 ML 100 / 100 200 mg In 100 ml @ 100 mls/hr IVPB DAILY [facility] Rx#:[id number] Zosyn 3.375 GM In 0.9 % Sodium 100 / 100 100 / 100 Chloride (Mini-Bag +) 100 ML @ 25 mls/hr IVPB Q8HR [facility] Rx#: [id number] Output: Catheter 350 / 350 625 / 625 625 / 625 Wound Drainage 120 / 120 150 / 150 83 / 83 Left Abdomen 10 / 10 3 / 3 Right Abdomen 120 / 120 140 / 140 80 / 80 Other: Blood Glucose* 133 130 141 - Labs 06/10/18 11:18 06/10/18 03:14 Diabetes panel 06/10/18 Range/Units 03:14 Sodium 142 (136-145) mEq/L Potassium 4.4 (3.5-5.1) mEq/L Chloride 112 H (98-107) mEq/L Carbon Dioxide 22 L (23-29) mEq/L BUN 32 H (6-20) mg/dL Creatinine 1.04 (0.70-1.30) mg/dL Glucose 119 H (70-105) mg/dL Calcium 9.3 (8.6-10.3) mg/dL Triglycerides 341 H (< 150) mg/dL Calcium panel 06/10/18 Range/Units 03:14 Calcium 9.3 (8.6-10.3) mg/dL Phosphorus 2.4 L (2.7-4.5) mg/dL Pituitary panel 06/10/18 Range/Units 03:14 Sodium 142 (136-145) mEq/L Potassium 4.4 (3.5-5.1) mEq/L Chloride 112 H (98-107) mEq/L Carbon Dioxide 22 L (23-29) mEq/L BUN 32 H (6-20) mg/dL Creatinine 1.04 (0.70-1.30) mg/dL Glucose 119 H (70-105) mg/dL Calcium 9.3 (8.6-10.3) mg/dL Adrenal panel 06/10/18 Range/Units 03:14 Sodium 142 (136-145) mEq/L Potassium 4.4 (3.5-5.1) mEq/L Chloride 112 H (98-107) mEq/L Carbon Dioxide 22 L (23-29) mEq/L BUN 32 H (6-20) mg/dL Creatinine 1.04 (0.70-1.30) mg/dL Glucose 119 H (70-105) mg/dL Calcium 9.3 (8.6-10.3) mg/dL - Attending Attestation patient seen and examined. i have reviewed all labs, imaging, and peritnent notes. I agree with the above assessment and plan and wish to add the following... afebrile; normal WBC: good UOP; drainage is less biliious; decrease sedation as tolerated; follow up with MRI due to concern about lack of stimulation with less sedation cont to monitor and cares with ICU cont TPN, PPI gtt
[2018-06-10] MEDS: Chlorhexidine Rinse 15 ML MOUTHWASH MM SCH ×2 (07:35→20:47)
[2018-06-10] MEDS: Fluconazole 200 MG/100 ML 200 MG/100 ML BAG IVPB SCH (07:36)
--- NOTE | 2018-06-10 08:14 | Pulmonology Progress Note ---
<Nathaniel Kumar T - Last Filed: 06/10/18 08:14> Date of Encounter: 06/10/18 Assessment and Plan (1) Septic shock due to Escherichia coli Current Visit: Yes Status: Acute Most likely 2/2 intraabdominal abscess with purulant fluid collections. 1/2 initial blood cultures pos E coli. Initial body fluid culture pos E coli. Remains intubated and sedated. Will decrease sedation some today to goal laureano of 3. Required phenylephrine since return from OR 2 days ago. BP stable ~115/ 60. Still tachycardic ~110, down some from yesterday 120's. Lactic 1.8 yst down from 5.1 high. ABG showing non gap metabolic acidosis ph 7.23, paco2 45, po2 97. He is overbreathing vent, will increase RR from 14-18 and recheck ABG in the afternoon. T max last 24 hours 101.3. WBC 17.5 down from 22 yesterday, likely reactive 2/2 surgery. Will continue zosyn as blood culture and fluid culture sensitive. Deescalate as allowed. ID following. Will decrease phenylephrine today and monitor. Repeat blood cultures pending. Will repeat lactic now. (2) Bacteremia due to Gram-negative bacteria Current Visit: Yes Status: Acute Initial blood culture pos for E coli 1/2. sensitive to pip/tazo which he is on, resistant to ampicillin, amp/sulbactam. ID on board. Will continue current abx, deescalate as allowed and repeat blood cultures not resulted yet. (3) Acute on chronic renal failure Current Visit: Yes Status: Resolved Cr up to 1.78 from 1.04 yst. Complicated with a non gap metabolic acidosis now. Will trend Cr, avoid nephrotoxins, and monitor electrolytes replacing as needed. Qualifiers: Acute renal failure type: unspecified Chronic kidney disease stage: unspecified stage Qualified Code(s): N17.9 - Acute kidney failure, unspecified ; N18.9 - Chronic kidney disease, unspecified (4) Perforated viscus Current Visit: Yes Status: Acute S/p exlap, washout, gerri-en-y. Surg following. (5) Lactic acidosis Current Visit: Yes Status: Acute Lactic had high of 5.1, was down to 1.2 and slightly up to 1.8 yesterday. Metabolic acidosis on ABG today. Will order lactic now. (6) Anemia Current Visit: No Status: Acute Hgb 6.4 this morning, down from 9.4 yesterday. 2 units PRBC infusing now. Will recheck CBC after. Qualifiers: Anemia type: other cause Other causes of anemia: other cause, not classified Qualified Code(s): D64.89 - Other specified anemias (7) Diabetes Current Visit: Yes Status: Chronic Hx of DM. On TPN, SSI on high corrective. TPN increased to higher dextrose today. Will add levemir 10 units BID. 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 Treated with outpatient abx with ID. On contact precautions. (9) Obesity (BMI 30.0-34.9) Current Visit: Yes Status: Chronic BMI 34.6. Will recommend lifestyle modifications upon dc. (10) DVT prophylaxis Current Visit: Yes Status: Acute Heparin prophylaxis Subjective Principal diagnosis: Septic shock Interval history: Intubated and sedated. Hemoglobin dropped overnight to 6.4 and blood transfusion started. T max overnight Objective PUL Vital signs: Last Vital Signs Temp 97.4 F L 06/10/18 05:14 Pulse 75 06/10/18 07:15 Resp 20 06/10/18 07:27 BP 102/70 06/10/18 07:27 Pulse Ox 97 06/10/18 07:27 Ventilator Settings Ventilator Settings: Ventilator Settings, Last 8 Hours Ventilator Tidal Volume 470 Setting Ventilator Tidal Volume 470 Setting Ventilator Tidal Volume 470 Setting Ventilator Tidal Volume 470 Setting Ventilator Tidal Volume 470 Setting Ventilator Tidal Volume 470 Setting Ventilator Tidal Volume 470 Setting Ventilator Tidal Volume 470 Setting Ventilator Tidal Volume 470 Setting Ventilator Tidal Volume 470 Setting Ventilator Tidal Volume 470 Setting Ventilator Respiratory Rate 18 Setting Ventilator Respiratory Rate 18 Setting Ventilator Respiratory Rate 18 Setting Ventilator Respiratory Rate 18 Setting Ventilator Respiratory Rate 18 Setting Ventilator Respiratory Rate 18 Setting Ventilator Respiratory Rate 18 Setting Ventilator Respiratory Rate 18 Setting Ventilator Respiratory Rate 18 Setting Ventilator Respiratory Rate 18 Setting Ventilator Respiratory Rate 18 Setting Actual Respiratory Rate 19 Actual Respiratory Rate 18 Actual Respiratory Rate 20 Actual Respiratory Rate 18 Actual Respiratory Rate 18 Actual Respiratory Rate 21 Actual Respiratory Rate 18 Actual Respiratory Rate 18 Actual Respiratory Rate 18 Actual Respiratory Rate 18 Positive End Expiratory 5 Pressure Positive End Expiratory 5 Pressure Positive End Expiratory 5 Pressure Positive End Expiratory 5 Pressure Positive End Expiratory 5 Pressure Positive End Expiratory 5 Pressure Positive End Expiratory 5 Pressure Positive End Expiratory 5 Pressure Positive End Expiratory 5 Pressure Positive End Expiratory 5 Pressure Positive End Expiratory 5 Pressure Peak Inspiratory Airway 5.5 Pressure Peak Inspiratory Airway 6 Pressure Peak Inspiratory Airway 7 Pressure Peak Inspiratory Airway 9.3 Pressure Peak Inspiratory Airway 7.9 Pressure Peak Inspiratory Airway 12 Pressure Results - Laboratory Findings CBC and BMP: 06/09/18 04:00 06/10/18 03:14 ABG ABG pH 7.33 pH Units (7.32-7.45) 06/10/18 04:51 ABG pCO2 41 mmHg (35-45) 06/10/18 04:51 ABG pO2 107 mmHg (85-104) H 06/10/18 04:51 ABG O2 Saturation 98 % (95-98) 06/10/18 04:51 PT/INR, D-dimer PT 15.1 Seconds (9.4-12.1) H 06/07/18 06:49 Abnormal lab findings: Abnormal lab results RBC 2.82 M/mcL (4.19-5.50) L 06/09/18 04:00 Hgb 7.9 g/dL (12.9-16.9) L 06/09/18 04:00 Hct 25.5 % (37.5-50.1) L 06/09/18 04:00 MCHC 31.0 g/dL (31.6-35.5) L 06/09/18 04:00 RDW 15.9 % (11.5-14.5) H 06/09/18 04:00 Plt Count 135 K/mcL (140-400) L 06/09/18 04:00 MPV 9.2 fL (9.4-12.4) L 06/09/18 04:00 Immature Gran % 8.0 % (0-4) H 06/08/18 04:35 Neutrophils # 9.1 K/mcL (1.6-8.9) H 06/08/18 04:35 Lymphocytes # 0.4 K/mcL (0.6-4.6) L 06/08/18 04:35 Nucleated RBCs/100 WBC 0.2 /100 WBC (0) H 06/08/18 04:35 Toxic Granulation Present (Not Present) A 06/08/18 04:35 Large Platelets Present (Not Present) A 06/07/18 03:30 PT 15.1 Seconds (9.4-12.1) H 06/07/18 06:49 ABG pO2 107 mmHg (85-104) H 06/10/18 04:51 ABG Base Excess -4 mEq/L (-2 to 3) L 06/10/18 04:51 Chloride 112 mEq/L (98-107) H 06/10/18 03:14 Carbon Dioxide 22 mEq/L (23-29) L 06/10/18 03:14 BUN 32 mg/dL (6-20) H 06/10/18 03:14 BUN/Creatinine Ratio 31 (6-26) H 06/10/18 03:14 Glucose 119 mg/dL (70-105) H 06/10/18 03:14 POC Glucose 129 mg/dL (70-99) H 06/10/18 04:17 Calculated Osmolality 302 (280-300) H 06/10/18 03:14 Phosphorus 2.4 mg/dL (2.7-4.5) L 06/10/18 03:14 Magnesium 1.5 mg/dL (1.6-2.6) L 06/10/18 03:14 Direct Bilirubin 0.9 mg/dL (0.0-0.2) H 06/08/18 04:35 AST 10 Units/L (13-39) L 06/08/18 04:35 Serum Total Protein 4.6 g/dL (6.4-8.9) L 06/08/18 04:35 Albumin 2.8 g/dL (3.5-5.7) L 06/08/18 04:35 Globulin 1.8 g/dL (2.4-3.5) L 06/08/18 04:35 Triglycerides 341 mg/dL (< 150) H 06/10/18 03:14 Gastrin 117 pg/mL (0-100) H 06/03/18 21:23 Urine Clarity Cloudy (Clear) A 06/02/18 09:18 Urine Protein 100 mg/dL (Neg-Trace) H 06/02/18 09:18 Urine Blood Large (Negative) H 06/02/18 09:18 Ur Leukocyte Esterase Moderate (Negative) H 06/02/18 09:18 Urine Microscopic RBC TNTC per hpf (0-3) H 06/02/18 09:18 Urine Microscopic WBC 15-30 per hpf (0-3) H 06/02/18 09:18 Ur Squamous Epith Cells Many per lpf (None-Few) H 06/02/18 09:18 Ur Culture Indicated? NO. (NO) A 06/02/18 09:18 Enterobacteriac sp PCR DETECTED (Not Detect) A 06/02/18 09:18 E. coli (PCR) DETECTED (Not Detect) A 06/02/18 09:18 - Microbiology Findings Microbiology Findings: Microbiology, Last 48 Hours 06/04/18 09:10 Blood Culture - Final Peripheral Venipuncture No growth. Final report. 06/04/18 09:12 Blood Culture - Final Peripheral Venipuncture No growth. Final report. 06/02/18 20:12 Anaerobic Culture - Final Peritoneal Fluid No anaerobes were recovered. 06/06/18 09:20 Urine Culture - Final Urine,[place] No growth. - Clinical Findings Intake & Output: Intake & Output 06/09/18 06/10/18 06/10/18 23:59 07:59 15:59 Intake Total 361.8 / 361.8 581.8 / 581.8 Output Total 765 / 765 470 / 470 Balance -403.2 / -403.2 111.8 / 111.8 Weight 113.7 kg - VTE Documentation of Mechanical Device: Intermittent pneumatic compression device Consult Discharge Plan - Plan Referrals: Zafar Hinton MD [Primary Care Provider] - <Tigist Thomas - Last Filed: 06/10/18 15:50> Date of Encounter: 06/10/18 Time of Encounter: 08:30 Objective PUL Vital signs: Last Vital Signs Temp 99 F 06/10/18 12:05 Pulse 104 06/10/18 14:56 Resp 26 06/10/18 14:56 BP 199/98 06/10/18 14:56 Pulse Ox 98 06/10/18 14:56 Ventilator Settings Ventilator Settings: Ventilator Settings, Last 8 Hours Ventilator Tidal Volume 500 Setting Ventilator Tidal Volume 500 Setting Ventilator Tidal Volume 500 Setting Ventilator Tidal Volume 500 Setting Ventilator Tidal Volume 500 Setting Ventilator Tidal Volume 500 Setting Ventilator Tidal Volume 500 Setting Ventilator Tidal Volume 470 Setting Ventilator Tidal Volume 470 Setting Ventilator Tidal Volume 470 Setting Ventilator Tidal Volume 470 Setting Ventilator Respiratory Rate 18 Setting Ventilator Respiratory Rate 18 Setting Ventilator Respiratory Rate 18 Setting Ventilator Respiratory Rate 18 Setting Ventilator Respiratory Rate 18 Setting Ventilator Respiratory Rate 18 Setting Ventilator Respiratory Rate 18 Setting Ventilator Respiratory Rate 18 Setting Ventilator Respiratory Rate 18 Setting Ventilator Respiratory Rate 18 Setting Ventilator Respiratory Rate 18 Setting Actual Respiratory Rate 26 Actual Respiratory Rate 24 Actual Respiratory Rate 26 Actual Respiratory Rate 20 Actual Respiratory Rate 20 Actual Respiratory Rate 27 Actual Respiratory Rate 26 Actual Respiratory Rate 20 Actual Respiratory Rate 23 Actual Respiratory Rate 20 Actual Respiratory Rate 20 Positive End Expiratory 5 Pressure Positive End Expiratory 5 Pressure Positive End Expiratory 5 Pressure Positive End Expiratory 5 Pressure Positive End Expiratory 5 Pressure Positive End Expiratory 5 Pressure Positive End Expiratory 5 Pressure Positive End Expiratory 5 Pressure Positive End Expiratory 5 Pressure Positive End Expiratory 5 Pressure Positive End Expiratory 5 Pressure Peak Inspiratory Airway 10 Pressure Peak Inspiratory Airway 9 Pressure Peak Inspiratory Airway 7.9 Pressure Peak Inspiratory Airway 7 Pressure Peak Inspiratory Airway 7 Pressure Peak Inspiratory Airway 8.6 Pressure Peak Inspiratory Airway 8 Pressure Peak Inspiratory Airway 6.5 Pressure Peak Inspiratory Airway 11 Pressure Peak Inspiratory Airway 7 Pressure Peak Inspiratory Airway 10 Pressure Results - Laboratory Findings CBC and BMP: 06/10/18 11:18 06/10/18 03:14 ABG ABG pH 7.33 pH Units (7.32-7.45) 06/10/18 04:51 ABG pCO2 41 mmHg (35-45) 06/10/18 04:51 ABG pO2 107 mmHg (85-104) H 06/10/18 04:51 ABG O2 Saturation 98 % (95-98) 06/10/18 04:51 PT/INR, D-dimer PT 15.1 Seconds (9.4-12.1) H 06/07/18 06:49 Abnormal lab findings: Abnormal lab results RBC 2.54 M/mcL (4.19-5.50) L 06/10/18 11:18 Hgb 7.3 g/dL (12.9-16.9) L 06/10/18 11:18 Hct 22.9 % (37.5-50.1) L 06/10/18 11:18 RDW 15.9 % (11.5-14.5) H 06/10/18 11:18 Immature Gran % 4.7 % (0-4) H 06/10/18 11:18 Nucleated RBCs/100 WBC 0.6 /100 WBC (0) H 06/10/18 11:18 Toxic Granulation Present (Not Present) A 06/08/18 04:35 Large Platelets Present (Not Present) A 06/07/18 03:30 PT 15.1 Seconds (9.4-12.1) H 06/07/18 06:49 ABG pO2 107 mmHg (85-104) H 06/10/18 04:51 ABG Base Excess -4 mEq/L (-2 to 3) L 06/10/18 04:51 Chloride 112 mEq/L (98-107) H 06/10/18 03:14 Carbon Dioxide 22 mEq/L (23-29) L 06/10/18 03:14 BUN 32 mg/dL (6-20) H 06/10/18 03:14 BUN/Creatinine Ratio 31 (6-26) H 06/10/18 03:14 Glucose 119 mg/dL (70-105) H 06/10/18 03:14 POC Glucose 129 mg/dL (70-99) H 06/10/18 04:17 Calculated Osmolality 302 (280-300) H 06/10/18 03:14 Phosphorus 2.4 mg/dL (2.7-4.5) L 06/10/18 03:14 Magnesium 1.5 mg/dL (1.6-2.6) L 06/10/18 03:14 Direct Bilirubin 0.9 mg/dL (0.0-0.2) H 06/08/18 04:35 AST 10 Units/L (13-39) L 06/08/18 04:35 Serum Total Protein 4.6 g/dL (6.4-8.9) L 06/08/18 04:35 Albumin 2.8 g/dL (3.5-5.7) L 06/08/18 04:35 Globulin 1.8 g/dL (2.4-3.5) L 06/08/18 04:35 Triglycerides 341 mg/dL (< 150) H 06/10/18 03:14 Gastrin 117 pg/mL (0-100) H 06/03/18 21:23 Urine Clarity Cloudy (Clear) A 06/02/18 09:18 Urine Protein 100 mg/dL (Neg-Trace) H 06/02/18 09:18 Urine Blood Large (Negative) H 06/02/18 09:18 Ur Leukocyte Esterase Moderate (Negative) H 06/02/18 09:18 Urine Microscopic RBC TNTC per hpf (0-3) H 06/02/18 09:18 Urine Microscopic WBC 15-30 per hpf (0-3) H 06/02/18 09:18 Ur Squamous Epith Cells Many per lpf (None-Few) H 06/02/18 09:18 Ur Culture Indicated? NO. (NO) A 06/02/18 09:18 Enterobacteriac sp PCR DETECTED (Not Detect) A 06/02/18 09:18 E. coli (PCR) DETECTED (Not Detect) A 06/02/18 09:18 - Microbiology Findings Microbiology Findings: Microbiology, Last 48 Hours 06/04/18 09:10 Blood Culture - Final Peripheral Venipuncture No growth. Final report. 06/04/18 09:12 Blood Culture - Final Peripheral Venipuncture No growth. Final report. 06/02/18 20:12 Anaerobic Culture - Final Peritoneal Fluid No anaerobes were recovered. - Clinical Findings Intake & Output: Intake & Output 06/09/18 06/10/18 06/10/18 23:59 07:59 15:59 Intake Total 361.8 / 361.8 581.8 / 581.8 353.9 / 353.9 Output Total 765 / 765 470 / 470 775 / 775 Balance -403.2 / -403.2 111.8 / 111.8 -421.1 / -421.1 Weight 113.7 kg - Attending Attestation - Attending Attestation I saw and evaluated this patient and my medical decision-making was reviewed with the Resident Physician. I agree with the documented findings, disposition and treatment plan as described except to the extent set forth below. We independently had [id number] contact with the patient I spent 32 minutes of Critical Care time with this patient. It involved decision making of high complexity to assess, manipulate, and support vital organ system failure and/or to prevent further life threatening deterioration of the patient's condition. The time involved in the performance of separately reportable procedures was not counted toward critical care time. Patient seen and examined at bedside Labs, radiology, chart personally reviewed. Management was reviewed during multidisciplinary critical care rounds. 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 06/10 EEG done showed generalized encephalopathy , Patient is going for MRI Neurology on board . Will try to run on minimal sedation. Pulm: Patient Acceptable Oxygenation and Ventilation the Patient Is Waking up Appropriately We Will Do Spontaneous Breathing Trial Patient Will Be a Candidate for Smart Pressure Support Ventilation for liberation. Cards: Septic shock resolved he is hemodynamically stable FEN-GI: Diet according to nutrition Renal: Labs and output reviewed ID: Patient is on broad-spectrum antibiotics for Escherichia coli bacteremia due to intra-abdominal source and also on antifungal for previous history of systemic candidiasis and in the background of perforated viscus patient is followed by ID Heme/Onc: Thromboprophylaxis Endo: Glucose Monitored Integ/MSK: Skin Care per routine ICU Nursing Protocol to prevent ulcers. Lines: All lines examined without evidence of infection : Dispo: Critically ill CODE: Full code
[2018-06-10] MEDS: Insulin Human Regular 250 UNIT in 0.9 % Sodium Chloride 250 ML IVC SCH (10:02)
[2018-06-10 11:30] LABS: Basophils % 0.2 %; Eosinophils # 0.1 K/mcL (0.0-0.6); Eosinophils % 1.3 %; Hematocrit 22.9 % (37.5-50.1); Hemoglobin 7.3 g/dL (12.9-16.9); Immature Granulocytes % 4.7 % (0-4); Lymphocytes # 0.8 K/mcL (0.6-4.6); Lymphocytes % 9.2 %; Mean Corpuscular HGB Conc 31.9 g/dL (31.6-35.5); Mean Corpuscular Hemoglobin 28.7 pg (28.0-33.3); Mean Corpuscular Volume 90.2 fL (83.0-100.0); Mean Platelet Volume 9.7 fL (9.4-12.4); Monocytes # 0.4 K/mcL (0.0-1.3); Neutrophils # 6.8 K/mcL (1.6-8.9); Nucleated Red Blood Cells 0.6 /100 WBC (0); Platelet Count 154 K/mcL (140-400); Red Blood Count 2.54 M/mcL (4.19-5.50); Red Cell Distribution Width 15.9 % (11.5-14.5); Segmented Neutrophils % 79.6 %
--- NOTE | 2018-06-10 14:12 | Infectious Disease Progress No ---
Date of Encounter: 06/10/18 Time of Encounter: 10:15 - Assessment and Plan (1) Severe sepsis Current Visit: Yes Status: Acute The patient had 3 sepsis criteria on admission. Likely secondary to bacteremia and intra-abdominal abscess. New onset likely secondary to recent surgery. Improved. Tachycardia, hypotension, and leukocytosis improved. Off vasopressors currently. Blood cultures obtained 06/02/18 her +1 out of 2 sets for Escherichia coli per PCR. Repeat blood cultures drawn 06/04/18 are negative 2 sets. Repeat blood cultures drawn 06/06/18 are NGTD x 2 sets. (2) Bacteremia due to Gram-negative bacteria Current Visit: Yes Status: Acute Causative organism: Escherichia coli per PCR. Source likely intra-abdominal abscess. Blood cultures obtained 06/02/18 are +1 out of 2 sets for Escherichia coli. Repeat blood cultures 06/04/18 are negative 2 sets. Repeat blood cultures 06/06/18 are NGTD x 2 sets. Continue Zosyn 3.375 g IV every 8 hours. Duration of treatment depends on the clinical picture. Monitor renal function and a productive toxicity and dose adjust antibiotics. (3) Intra-abdominal abscess Current Visit: No Status: Acute Likely secondary to perforated viscus. Causative organism E. coli. POD #8 Status post exploratory laparotomy, drainage of intra-abdominal abscess [address] Maria. Operative note was reviewed. Gross purulence noted and dropped, but no succus, bile, or staining was seen in the abdominal cavity. Continue Zosyn 3.375 g IV every 8 hours for now. Continue fluconazole 200mg IV daily. Dose-adjust antibiotics based on creatinine clearance. Duration of treatment depends on the clinical picture. Wound care and activity restrictions per the surgery team. (4) Perforated abdominal viscus Current Visit: No Status: Acute Initially was thought to likely be secondary to NSAID use. Concern that this perforation may be secondary to the patch they placed previously was laying under pocket of pus which kept irritating it and cause perforation again. POD #5 status post exp lap with antrectomy, closure of duodenal stump, and Gerri en Y. Continue Zosyn as stated above. Continue fluconazole 200 mg IV daily. Duration of treatment depends on the clinical picture. Monitor renal and liver function and dose-adjust antibiotics. (5) Acute on chronic renal failure Current Visit: Yes Status: Resolved Likely secondary to severe sepsis. Improved. Continue to trend. Dose adjust antibiotics based on creatinine clearance. Avoid nephrotoxins as able. Qualifiers: Acute renal failure type: unspecified Chronic kidney disease stage: unspecified stage Qualified Code(s): N17.9 - Acute kidney failure, unspecified ; N18.9 - Chronic kidney disease, unspecified (6) Pneumoperitoneum Current Visit: Yes Status: Acute Secondary to perforated viscus. Further management per the general surgery team. (7) Allergy to multiple antibiotics Current Visit: Yes Status: Acute (8) VRE (vancomycin-resistant Enterococci) Current Visit: No Status: Inactive Patient has a history of VRE in the urine. Continue contact precautions per hospital protocol. (9) Venous thromboembolism Current Visit: Yes Status: Acute DVT study showed a chronic venous thrombosis in the right lesser saphenous vein. Anticoagulation per the primary team. - Subjective Interval history: Patient seen and examined. No acute events noted overnight. Currently off vasopressors. Status post exp lap with antrectomy, closure of duodenal stump, and gerri en Y reconstruction 06/05/18 . Patient currently intubated and sedated on the ventilator. No new issues per nursing. Infect Dis PN-Objective Data - Labs CBC & Chem 7: 06/11/18 03:30 06/11/18 03:30 Labs: Laboratory Results - last 24 hr 06/09/18 06/09/18 06/09/18 00:17 01:04 02:04 WBC RBC Hgb Hct MCV MCH MCHC RDW Plt Count MPV Immature Gran % Seg Neutrophils % Lymphocytes % Monocytes % Eosinophils % Basophils % Neutrophils # Lymphocytes # Monocytes # Eosinophils # Basophils # Nucleated RBCs/100 WBC Sample Site ABG pH ABG pCO2 ABG pO2 ABG HCO3 ABG Total CO2 ABG O2 Saturation ABG Base Excess Jaun Test Respiration Rate O2 Delivery Device Blood Gas Modality Inspired O2 Tidal Volume PEEP Sodium Potassium Chloride Carbon Dioxide BUN Creatinine Est GFR ( Amer) Est GFR (Non-Af Amer) BUN/Creatinine Ratio Glucose POC Glucose 222 H 226 H 210 H Calculated Osmolality Calcium Phosphorus Magnesium Triglycerides 06/09/18 06/09/18 06/09/18 03:03 04:05 05:05 WBC RBC Hgb Hct MCV MCH MCHC RDW Plt Count MPV Immature Gran % Seg Neutrophils % Lymphocytes % Monocytes % Eosinophils % Basophils % Neutrophils # Lymphocytes # Monocytes # Eosinophils # Basophils # Nucleated RBCs/100 WBC Sample Site ABG pH ABG pCO2 ABG pO2 ABG HCO3 ABG Total CO2 ABG O2 Saturation ABG Base Excess Jaun Test Respiration Rate O2 Delivery Device Blood Gas Modality Inspired O2 Tidal Volume PEEP Sodium Potassium Chloride Carbon Dioxide BUN Creatinine Est GFR ( Amer) Est GFR (Non-Af Amer) BUN/Creatinine Ratio Glucose POC Glucose 204 H 230 H 208 H Calculated Osmolality Calcium Phosphorus Magnesium Triglycerides 06/09/18 06/09/18 06/09/18 06:11 07:07 08:01 WBC RBC Hgb Hct MCV MCH MCHC RDW Plt Count MPV Immature Gran % Seg Neutrophils % Lymphocytes % Monocytes % Eosinophils % Basophils % Neutrophils # Lymphocytes # Monocytes # Eosinophils # Basophils # Nucleated RBCs/100 WBC Sample Site ABG pH ABG pCO2 ABG pO2 ABG HCO3 ABG Total CO2 ABG O2 Saturation ABG Base Excess Jaun Test Respiration Rate O2 Delivery Device Blood Gas Modality Inspired O2 Tidal Volume PEEP Sodium Potassium Chloride Carbon Dioxide BUN Creatinine Est GFR ( Amer) Est GFR (Non-Af Amer) BUN/Creatinine Ratio Glucose POC Glucose 187 H 200 H 199 H Calculated Osmolality Calcium Phosphorus Magnesium Triglycerides 06/09/18 06/09/18 06/09/18 09:19 10:20 11:09 WBC RBC Hgb Hct MCV MCH MCHC RDW Plt Count MPV Immature Gran % Seg Neutrophils % Lymphocytes % Monocytes % Eosinophils % Basophils % Neutrophils # Lymphocytes # Monocytes # Eosinophils # Basophils # Nucleated RBCs/100 WBC Sample Site ABG pH ABG pCO2 ABG pO2 ABG HCO3 ABG Total CO2 ABG O2 Saturation ABG Base Excess Jaun Test Respiration Rate O2 Delivery Device Blood Gas Modality Inspired O2 Tidal Volume PEEP Sodium Potassium Chloride Carbon Dioxide BUN Creatinine Est GFR ( Amer) Est GFR (Non-Af Amer) BUN/Creatinine Ratio Glucose POC Glucose 190 H 192 H 176 H Calculated Osmolality Calcium Phosphorus Magnesium Triglycerides 06/09/18 06/09/18 06/09/18 12:20 13:05 14:09 WBC RBC Hgb Hct MCV MCH MCHC RDW Plt Count MPV Immature Gran % Seg Neutrophils % Lymphocytes % Monocytes % Eosinophils % Basophils % Neutrophils # Lymphocytes # Monocytes # Eosinophils # Basophils # Nucleated RBCs/100 WBC Sample Site ABG pH ABG pCO2 ABG pO2 ABG HCO3 ABG Total CO2 ABG O2 Saturation ABG Base Excess Jaun Test Respiration Rate O2 Delivery Device Blood Gas Modality Inspired O2 Tidal Volume PEEP Sodium Potassium Chloride Carbon Dioxide BUN Creatinine Est GFR ( Amer) Est GFR (Non-Af Amer) BUN/Creatinine Ratio Glucose POC Glucose 169 H 176 H 166 H Calculated Osmolality Calcium Phosphorus Magnesium Triglycerides 06/09/18 06/09/18 06/09/18 15:07 16:27 17:04 WBC RBC Hgb Hct MCV MCH MCHC RDW Plt Count MPV Immature Gran % Seg Neutrophils % Lymphocytes % Monocytes % Eosinophils % Basophils % Neutrophils # Lymphocytes # Monocytes # Eosinophils # Basophils # Nucleated RBCs/100 WBC Sample Site ABG pH ABG pCO2 ABG pO2 ABG HCO3 ABG Total CO2 ABG O2 Saturation ABG Base Excess Jaun Test Respiration Rate O2 Delivery Device Blood Gas Modality Inspired O2 Tidal Volume PEEP Sodium Potassium Chloride Carbon Dioxide BUN Creatinine Est GFR ( Amer) Est GFR (Non-Af Amer) BUN/Creatinine Ratio Glucose POC Glucose 176 H 153 H 146 H Calculated Osmolality Calcium Phosphorus Magnesium Triglycerides 06/09/18 06/09/18 06/09/18 18:12 19:01 20:02 WBC RBC Hgb Hct MCV MCH MCHC RDW Plt Count MPV Immature Gran % Seg Neutrophils % Lymphocytes % Monocytes % Eosinophils % Basophils % Neutrophils # Lymphocytes # Monocytes # Eosinophils # Basophils # Nucleated RBCs/100 WBC Sample Site ABG pH ABG pCO2 ABG pO2 ABG HCO3 ABG Total CO2 ABG O2 Saturation ABG Base Excess Jaun Test Respiration Rate O2 Delivery Device Blood Gas Modality Inspired O2 Tidal Volume PEEP Sodium Potassium Chloride Carbon Dioxide BUN Creatinine Est GFR ( Amer) Est GFR (Non-Af Amer) BUN/Creatinine Ratio Glucose POC Glucose 148 H 142 H 142 H Calculated Osmolality Calcium Phosphorus Magnesium Triglycerides 06/09/18 06/09/18 06/09/18 21:01 21:58 23:08 WBC RBC Hgb Hct MCV MCH MCHC RDW Plt Count MPV Immature Gran % Seg Neutrophils % Lymphocytes % Monocytes % Eosinophils % Basophils % Neutrophils # Lymphocytes # Monocytes # Eosinophils # Basophils # Nucleated RBCs/100 WBC Sample Site ABG pH ABG pCO2 ABG pO2 ABG HCO3 ABG Total CO2 ABG O2 Saturation ABG Base Excess Jaun Test Respiration Rate O2 Delivery Device Blood Gas Modality Inspired O2 Tidal Volume PEEP Sodium Potassium Chloride Carbon Dioxide BUN Creatinine Est GFR ( Amer) Est GFR (Non-Af Amer) BUN/Creatinine Ratio Glucose POC Glucose 143 H 142 H 137 H Calculated Osmolality Calcium Phosphorus Magnesium Triglycerides 06/10/18 06/10/18 06/10/18 00:05 03:14 04:17 WBC RBC Hgb Hct MCV MCH MCHC RDW Plt Count MPV Immature Gran % Seg Neutrophils % Lymphocytes % Monocytes % Eosinophils % Basophils % Neutrophils # Lymphocytes # Monocytes # Eosinophils # Basophils # Nucleated RBCs/100 WBC Sample Site ABG pH ABG pCO2 ABG pO2 ABG HCO3 ABG Total CO2 ABG O2 Saturation ABG Base Excess Jaun Test Respiration Rate O2 Delivery Device Blood Gas Modality Inspired O2 Tidal Volume PEEP Sodium 142 Potassium 4.4 Chloride 112 H Carbon Dioxide 22 L BUN 32 H Creatinine 1.04 Est GFR ( Amer) > 60 Est GFR (Non-Af Amer) > 60 BUN/Creatinine Ratio 31 H Glucose 119 H POC Glucose 143 H 129 H Calculated Osmolality 302 H Calcium 9.3 Phosphorus 2.4 L Magnesium 1.5 L Triglycerides 341 H 06/10/18 06/10/18 04:51 11:18 WBC 8.5 RBC 2.54 L Hgb 7.3 L Hct 22.9 L MCV 90.2 MCH 28.7 MCHC 31.9 RDW 15.9 H Plt Count 154 MPV 9.7 Immature Gran % 4.7 H Seg Neutrophils % 79.6 Lymphocytes % 9.2 Monocytes % 5.0 Eosinophils % 1.3 Basophils % 0.2 Neutrophils # 6.8 Lymphocytes # 0.8 Monocytes # 0.4 Eosinophils # 0.1 Basophils # 0.0 Nucleated RBCs/100 WBC 0.6 H Sample Site L Radial ABG pH 7.33 ABG pCO2 41 ABG pO2 107 H ABG HCO3 22 ABG Total CO2 23 ABG O2 Saturation 98 ABG Base Excess -4 L Jaun Test N/A Respiration Rate 18 O2 Delivery Device Adult Vent Blood Gas Modality ASSIST CONTROL Inspired O2 30.0 Tidal Volume 470 PEEP 5 Sodium Potassium Chloride Carbon Dioxide BUN Creatinine Est GFR ( Amer) Est GFR (Non-Af Amer) BUN/Creatinine Ratio Glucose POC Glucose Calculated Osmolality Calcium Phosphorus Magnesium Triglycerides Cultures: Cultures 06/04/18 09:10 Blood Culture - Final Peripheral Venipuncture No growth. Final report. 06/04/18 09:12 Blood Culture - Final Peripheral Venipuncture No growth. Final report. 06/02/18 20:12 Anaerobic Culture - Final Peritoneal Fluid No anaerobes were recovered. 06/06/18 09:20 Urine Culture - Final Urine,[place] No growth. 06/07/18 03:48 Sputum Culture - Final Sputum 06/06/18 03:35 Blood Culture - Preliminary Peripheral Venipuncture Culture is incubating and being continuously monitored for growth. Final report to follow. 06/06/18 01:42 Blood Culture - Preliminary Peripheral Venipuncture Culture is incubating and being continuously monitored for growth. Final report to follow. 06/02/18 20:12 Body Fluid Culture - Final Peritoneal Fluid Escherichia coli Exam - Constitutional Vitals: Temp Pulse Resp BP Pulse Ox 99 F 81 25 169/108 98 06/10/18 12:05 06/10/18 13:00 06/10/18 13:42 06/10/18 13:42 06/10/18 13:42 General appearance: morbidly obese, no acute distress, no febrile - Head Head exam: Present: atraumatic, normal inspection, normocephalic - Eye Eye exam: Present: normal appearance, PERRL Pupils: Present: normal accommodation - ENT ENT exam: Present: mucous membranes moist - Neck Neck exam: Present: normal inspection - Respiratory Respiratory exam: Present: CTAB. Absent: rales, respiratory distress, rhonchi, wheezes - Cardiovascular Cardiovascular exam: Present: RRR, +S1, +S2 - GI/Abdominal GI/Abdominal exam: Present: distended (obese), normal bowel sounds, soft, tenderness (Patient grimmaces with palpation of the abdomen.) Additional comments: Midline abdominal incision dressing with small amount of shattered drainage noted. SARBJIT drain noted to the left abdomen with small amount of serous drainage noted. SARBJIT drain noted to the right abdomen with moderate amount of bilious contents noted. [place] catheter draining clear yellow urine. Energy to low intermittent wall suction with bilious gastric contents noted. - Extremities Exam Extremities exam: Present: normal inspection. Absent: joint swelling, pedal edema, tenderness - Neurological Exam Neurological exam: Present: altered (Sedated) - Skin Skin exam: Present: dry, intact, normal color, warm - Additional findings Additional findings: PICC line noted to the right upper extremity with TPN infusing. Transparent dressing is clean, dry, and intact. - VTE Documentation of Mechanical Device: Intermittent pneumatic compression device Consult Discharge Plan - Plan Referrals: Zafar Hinton MD [Primary Care Provider] - - Attending Attestation I examined this patient and my medical decision-making was reviewed with the Resident Physician. I agree with the documented findings, disposition and treatment plan as described except to the extent set forth below.
--- NOTE | 2018-06-10 14:22 | EEG/EMG/Oth Biometrics Report ---
EEG Procedure Report EEG Procedure: Routine EEG Procedure Note: The patient has a history of sepsis, unresponsive, This is a multichannel digital EEG recording using the international 10-20 placement system. The resting record is ill organized and symmetric. A dominant posterior rhythm consists of amplitude 4-6 hertz 20-70 microvolt delta rhythm. This does not attenuates much with external stimuli, there is mild attenuation and slowing of the background rhythm. Stage II sleep was not achieved. Hyperventilation was not performed. Photic stimulation did not significantly alter the background rhythm. No clinical seizure activity was noted by the optoelectronic technician. IMPRESSION: This is an abnormal EEG recording because of the presence of generalized slowing, which is a nonspecific pattern mostly seen in the patient with generalized metabolic toxic encephalopathy consistent with underlying diffuse cortical dysfunction, no obvious seizure activity was recorded Clinical correlation is suggested.
[2018-06-10] MEDS ORDERED: *HR* HYDROmorphone (PF) 1 MG/ML SYRINGE IVP ONE (16:00)
[2018-06-10] MEDS ORDERED: Clinimix E 5%-15% SOLUTION 2,000 ML, Parenteral Amino Acid 10% 200 ML with MVI, adult ... IVC SCH (17:00)
[2018-06-11] MEDS: Dexmedetomidine HCl 400 MCG/100 ML MLS IVC SCH ×4 (02:13→20:16)
[2018-06-11] MEDS: Artificial Tears SOLN 15 ML BOTTLE BOTH EYES SCH ×6 (03:24→23:27)
[2018-06-11 03:43] LABS: Basophils % 0.3 %; Eosinophils # 0.1 K/mcL (0.0-0.6); Eosinophils % 0.6 %; Hematocrit 24.1 % (37.5-50.1); Hemoglobin 7.5 g/dL (12.9-16.9); Immature Granulocytes % 5.2 % (0-4); Lymphocytes # 0.9 K/mcL (0.6-4.6); Lymphocytes % 9.5 %; Mean Corpuscular HGB Conc 31.1 g/dL (31.6-35.5); Mean Corpuscular Hemoglobin 27.3 pg (28.0-33.3); Mean Corpuscular Volume 87.6 fL (83.0-100.0); Mean Platelet Volume 9.4 fL (9.4-12.4); Monocytes # 0.6 K/mcL (0.0-1.3); Monocytes % 6.2 %; Nucleated Red Blood Cells 0.6 /100 WBC (0); Platelet Count 188 K/mcL (140-400); Red Blood Count 2.75 M/mcL (4.19-5.50); Red Cell Distribution Width 16.7 % (11.5-14.5); Segmented Neutrophils % 78.2 %
[2018-06-11 03:58] LABS: Magnesium 1.5 mg/dL (1.6-2.6); Phosphorous 4.1 mg/dL (2.7-4.5)
[2018-06-11 03:59] LABS: BUN/Creatinine Ratio 36 (6-26); Blood Urea Nitrogen 34 mg/dL (6-20); Calcium 9.3 mg/dL (8.6-10.3); Carbon Dioxide 20 mEq/L (23-29); Chloride 113 mEq/L (98-107); Glucose 154 mg/dL (70-105); Osmolality,Calculated 305 (280-300); Potassium 4.5 mEq/L (3.5-5.1); Sodium 142 mEq/L (136-145); eGFR For Non-African Americans > 60 (> 60)
[2018-06-11] MEDS: Acetaminophen IV 1,000 MG/100 ML INFUS..BTL IVPB PRN (04:19)
[2018-06-11 04:23] LABS: Neutrophils # 7.7 K/mcL (1.6-8.9)
[2018-06-11 04:24] LABS: Platelet Estimate Normal (Normal)
[2018-06-11] MEDS: Pantoprazole 40 MG VIAL IVP SCH ×2 (04:55→18:46)
[2018-06-11] MEDS: *HR* Heparin 5,000 UNIT/ML VIAL SQ SCH ×3 (04:55→20:15)
--- NOTE | 2018-06-11 07:33 | General Surgery Progress Note ---
<Pedro Ocasio R - Last Filed: 06/11/18 11:12> Date of Encounter: 06/11/18 Time of Encounter: 07:20 - Assessment and Plan (1) Perforated abdominal viscus Current Visit: No Status: Acute POD #6 s/p exploratory laparotomy, antrectomy, gerri en Y reconstruction with Drs. Serrano and Mary on 06/05/2018 Sedation has been weaned to minimal, ccu team not able to wean off vent at this time. Tachycardia in the 120's and Tmax of 101.3 overnight. EEG with generalized slowing, consistent with diffuse cortical dysfunction and encephalopathy MRI- no intracranial abnormality Plan: CCU care and medical management Continue to wean vent and sedation Continue TPN Maintain glycemic control PPI/ dvt prophylaxis Comfort care and pain management Wound care daily Monitor drain and NG output Follow cbc, bmp, LFTs (2) Diabetes Current Visit: Yes Status: Chronic Improved control with POC checks in the low-mid 100's continued management per ccu team Qualifiers: Diabetes mellitus type: type 2 Diabetes mellitus termination clerk insulin use: without termination clerk use Diabetes mellitus complication status: with hyperglycemia Qualified Code(s): E11.65 - Type 2 diabetes mellitus with hyperglycemia (3) Acute on chronic renal failure Current Visit: Yes Status: Resolved Improved and remains stable, 0.95 today continue to monitor and replete lytes as needed Qualifiers: Acute renal failure type: unspecified Chronic kidney disease stage: unspecified stage Qualified Code(s): N17.9 - Acute kidney failure, unspecified ; N18.9 - Chronic kidney disease, unspecified (4) Bacteremia due to Gram-negative bacteria Current Visit: Yes Status: Acute Blood cultures positive for Ecoli On Zosyn Treatment per ccu and ID recommendations Subjective Patient reports: other (unresponsive, now on low sedation) Narrative: Patient remains unresponsive at this time, spoke with ccu team at the bed side. Remains intubated on minimal sedation. Objective Vital Signs - Last 8 Hours Temp Pulse Resp BP Pulse Ox 06/11/18 06:00 100.2 F H 123 27 111/68 100 06/11/18 05:47 31 131/75 99 06/11/18 05:00 101.2 F H 111 25 98/67 99 06/11/18 04:00 101.3 F H 118 27 136/79 98 06/11/18 03:55 30 143/80 98 06/11/18 03:41 126 06/11/18 03:00 124 27 138/91 98 06/11/18 02:09 28 136/89 98 06/11/18 02:00 120 29 136/89 98 06/11/18 01:00 104 25 131/78 97 06/11/18 00:07 100.3 F H 06/11/18 00:00 116 33 163/91 99 06/10/18 23:47 27 149/85 98 06/10/18 23:31 98 Intake and Output 06/10/18 06/10/18 06/11/18 15:59 23:59 07:59 Intake Total 457.9 / 457.9 535.5 / 535.5 400 / 400 Output Total 775 / 775 1108 / 1108 1130 / 1130 Balance -317.1 / -317.1 -572.5 / -572.5 -730 / -730 Intake: IV Fluids 457.9 / 457.9 535.5 / 535.5 400 / 400 PRECEDEX Premix 400 mcg In 100 100 / 100 100 / 100 100 / 100 ml @ 0.2 MCG/KG/HR 5.48 mls/hr IVC .[id number] [facility] Rx#:[id number] FentaNYL (PF) 1,000 MCG In 0.9 75.5 / 75.5 % Sodium Chloride 80 ML @ 50 MCG/HR 5 mls/hr IVC CONT [facility] Rx #:[id number] HumuLIN R 250 UNIT In 0.9 % 53.9 / 53.9 Sodium Chloride 250 ML @ Titrate IVC CONT [facility] Rx#: [id number] Diprivan 1,000 mg In 100 ml @ 100 / 100 15 MCG/KG/MIN 10.233 mls/hr IVC .[id number] [place] Rx#:[id number] Ofirmev 1,000 mg/100 ml 1,000 100 / 100 mg In 100 ml @ 400 mls/hr IVPB Q6HR PRN Rx#:[id number] Diflucan Premix 200 MG/100 ML 100 / 100 200 mg In 100 ml @ 100 mls/hr IVPB DAILY [place] Rx#:[id number] Magnesium Sulfate 2 GM In 0.9 % 104 / 104 Sodium Chloride 100 ML @ 52 mls/hr IVPB Q6H PRN Rx#: [id number] Zosyn 3.375 GM In 0.9 % Sodium 100 / 100 100 / 100 100 / 100 Chloride (Mini-Bag +) 100 ML @ 25 mls/hr IVPB Q8HR [place] Rx#: [id number] Sodium Phosphate 30 MMOL In 0.9 260 / 260 % Sodium Chloride 250 ML @ 42 mls/hr IVPB Q12H PRN Rx#: [id number] Output: Catheter 625 / 625 975 / 975 1000 / 1000 Wound Drainage 150 / 150 133 / 133 130 / 130 Left Abdomen 3 / 3 5 / 5 Right Abdomen 140 / 140 130 / 130 125 / 125 Other: Weight 114.8 kg Blood Glucose* 130 148 152 Patient Weight 06/11/18 23:59 Weight 114.8 kg - General physical appearance well developed, no distress, chronically ill, other (intubated) - ENT normal mucosa, atraumatic, normocephalic, Other (intubated on ventilator) - Neck Neck exam: trachea midline - Respiratory normal expansion - Cardiovascular Cardiovascular exam: Present: RRR - Abdomen Abdomen: Present: bowel sounds present, soft, wound. Absent: distended (Right SARBJIT continued brown fluid 180 mL overnight. Left 5 mL serous. ), guarding - Incision Incision: Present: clean and dry, intact (spaced areas of incision with packing ) - Integumentary no rash - Neurologic other (unresponsive, minimal sedation) - Psychiatric other - Labs 06/11/18 03:30 06/11/18 03:30 Diabetes panel 06/11/18 Range/Units 03:30 Sodium 142 (136-145) mEq/L Potassium 4.5 (3.5-5.1) mEq/L Chloride 113 H (98-107) mEq/L Carbon Dioxide 20 L (23-29) mEq/L BUN 34 H (6-20) mg/dL Creatinine 0.95 (0.70-1.30) mg/dL Glucose 154 H (70-105) mg/dL Calcium 9.3 (8.6-10.3) mg/dL Calcium panel 06/11/18 06/11/18 Range/Units 03:30 03:30 Calcium 9.3 (8.6-10.3) mg/dL Phosphorus 4.1 (2.7-4.5) mg/dL Pituitary panel 06/11/18 Range/Units 03:30 Sodium 142 (136-145) mEq/L Potassium 4.5 (3.5-5.1) mEq/L Chloride 113 H (98-107) mEq/L Carbon Dioxide 20 L (23-29) mEq/L BUN 34 H (6-20) mg/dL Creatinine 0.95 (0.70-1.30) mg/dL Glucose 154 H (70-105) mg/dL Calcium 9.3 (8.6-10.3) mg/dL Adrenal panel 06/11/18 Range/Units 03:30 Sodium 142 (136-145) mEq/L Potassium 4.5 (3.5-5.1) mEq/L Chloride 113 H (98-107) mEq/L Carbon Dioxide 20 L (23-29) mEq/L BUN 34 H (6-20) mg/dL Creatinine 0.95 (0.70-1.30) mg/dL Glucose 154 H (70-105) mg/dL Calcium 9.3 (8.6-10.3) mg/dL - VTE Documentation of Mechanical Device: Intermittent pneumatic compression device Consult Discharge Plan - Plan Referrals: Zafar Hinton MD [Primary Care Provider] - <Benedict Serrano - Last Filed: 06/11/18 13:40> Date of Encounter: 06/11/18 - Assessment and Plan (1) Peritonitis Current Visit: Yes Status: Acute Objective Vital Signs - Last 8 Hours Temp Pulse Resp BP Pulse Ox 06/11/18 13:00 115 26 155/87 100 06/11/18 12:00 100.1 F H 109 26 136/94 100 06/11/18 11:07 26 135/88 100 06/11/18 11:00 116 30 135/88 100 06/11/18 10:00 115 22 165/102 100 06/11/18 09:45 26 169/106 98 06/11/18 09:00 105 26 169/106 100 06/11/18 08:00 97.4 F L 106 26 159/104 100 06/11/18 07:33 27 129/88 99 06/11/18 07:00 111 28 100/70 100 06/11/18 06:00 100.2 F H 123 27 111/68 100 06/11/18 05:47 31 131/75 99 Intake and Output 06/10/18 06/11/18 06/11/18 23:59 07:59 15:59 Intake Total 535.5 / 535.5 400 / 400 550 / 550 Output Total 1108 / 1108 1130 / 1130 2730 / 2730 Balance -572.5 / -572.5 -730 / -730 -2180 / -2180 Intake: IV Fluids 535.5 / 535.5 400 / 400 550 / 550 PRECEDEX Premix 400 mcg In 100 100 / 100 100 / 100 200 / 200 ml @ 0.2 MCG/KG/HR 5.48 mls/hr IVC .[id number] [place] Rx#:[id number] FentaNYL (PF) 1,000 MCG In 0.9 75.5 / 75.5 100 / 100 % Sodium Chloride 80 ML @ 50 MCG/HR 5 mls/hr IVC CONT [facility] Rx #:[id number] HumuLIN R 250 UNIT In 0.9 % 100 / 100 Sodium Chloride 250 ML @ Titrate IVC CONT [facility] Rx#: [id number] Diprivan 1,000 mg In 100 ml @ 100 / 100 50 / 50 15 MCG/KG/MIN 10.233 mls/hr IVC .[id number] [place] Rx#:[id number] Ofirmev 1,000 mg/100 ml 1,000 100 / 100 mg In 100 ml @ 400 mls/hr IVPB Q6HR PRN Rx#:[id number] Diflucan Premix 200 MG/100 ML 100 / 100 200 mg In 100 ml @ 100 mls/hr IVPB DAILY [facility] Rx#:[id number] Zosyn 3.375 GM In 0.9 % Sodium 100 / 100 100 / 100 Chloride (Mini-Bag +) 100 ML @ 25 mls/hr IVPB Q8HR [place] Rx#: [id number] Sodium Phosphate 30 MMOL In 0.9 260 / 260 % Sodium Chloride 250 ML @ 42 mls/hr IVPB Q12H PRN Rx#: [id number] Output: Catheter 975 / 975 1000 / 1000 2600 / 2600 Wound Drainage 133 / 133 130 / 130 130 / 130 Left Abdomen 3 / 3 5 / 5 0 / 0 Right Abdomen 130 / 130 125 / 125 130 / 130 Other: Weight 114.8 kg Blood Glucose* 148 138 143 Patient Weight 06/11/18 23:59 Weight 114.8 kg - Labs 06/11/18 03:30 06/11/18 03:30 Diabetes panel 06/11/18 06/11/18 Range/Units 03:30 09:00 Sodium 142 (136-145) mEq/L Potassium 4.5 (3.5-5.1) mEq/L Chloride 113 H (98-107) mEq/L Carbon Dioxide 20 L (23-29) mEq/L BUN 34 H (6-20) mg/dL Creatinine 0.95 (0.70-1.30) mg/dL Glucose 154 H (70-105) mg/dL Calcium 9.3 (8.6-10.3) mg/dL AST 18 (13-39) Units/L ALT 15 (7-52) Units/L Alkaline Phosphatase 70 (34-104) Units/L Albumin 2.7 L (3.5-5.7) g/dL Calcium panel 06/11/18 06/11/18 06/11/18 Range/Units 03:30 03:30 09:00 Calcium 9.3 (8.6-10.3) mg/dL Phosphorus 4.1 (2.7-4.5) mg/dL Albumin 2.7 L (3.5-5.7) g/dL Pituitary panel 06/11/18 Range/Units 03:30 Sodium 142 (136-145) mEq/L Potassium 4.5 (3.5-5.1) mEq/L Chloride 113 H (98-107) mEq/L Carbon Dioxide 20 L (23-29) mEq/L BUN 34 H (6-20) mg/dL Creatinine 0.95 (0.70-1.30) mg/dL Glucose 154 H (70-105) mg/dL Calcium 9.3 (8.6-10.3) mg/dL Adrenal panel 06/11/18 06/11/18 Range/Units 03:30 09:00 Sodium 142 (136-145) mEq/L Potassium 4.5 (3.5-5.1) mEq/L Chloride 113 H (98-107) mEq/L Carbon Dioxide 20 L (23-29) mEq/L BUN 34 H (6-20) mg/dL Creatinine 0.95 (0.70-1.30) mg/dL Glucose 154 H (70-105) mg/dL Calcium 9.3 (8.6-10.3) mg/dL Total Bilirubin 0.5 (0.3-1.0) mg/dL AST 18 (13-39) Units/L ALT 15 (7-52) Units/L Alkaline Phosphatase 70 (34-104) Units/L Albumin 2.7 L (3.5-5.7) g/dL - Attending Attestation I have personally seen and examined the patient. I have reviewed pertinent labs , imaging, progress notes, including this one. I agree with the above assessment and plan and wish to include the following... 52M POD#6 s/p antrectomy with RNY reconstruction 2/2 perforated duodenal ulcer ( prior failed evie patch) now with duodenal stump leak controlled with drain; now unresponsive despite lowered sedation; no evidence of hepatic, renal, nor renal failure; no evidence of uncontrolled sepsis; no evidence of cerebral ischemia; neuro: cont to decrease sedation cardiac: cont supportive pulm: cont supportive care; wean when appropriate; cultures if concern for pulm source of encephalopathy/infection GI: cont TPN, PPI gtt; starting to have bowel sounds; cont drain as it is controlling leak : cont banda in light of sepsis; ID: appreciate ID recommendations heme: cont chemical dvt prophylaxis; transfuse per ICU FEN: TPn, replete lytes (ie: Mg); consider drawing ammonia levels endo: cont with Insulin gtt; goal < 150 lines: PICC disp: cont ICU cares
--- NOTE | 2018-06-11 07:43 | Pulmonology Progress Note ---
<Nathaniel Kumar - Last Filed: 06/11/18 16:43> Date of Encounter: 06/11/18 Time of Encounter: 08:10 Assessment and Plan (1) Septic shock due to Escherichia coli Current Visit: Yes Status: Acute Most likely 2/2 intraabdominal abscess with purulant fluid collections. 1/2 initial blood cultures pos E coli. Initial body fluid culture pos E coli. Remains intubated and sedated. Febrile overnight with tmax 101.3. Trialed off propofol this morning. Continue precedex and added haldol today to titrate down. Continues to be unarousable. EEG showed generalized slowing, MRI brain without any acute abnormality. WBC 11 today. Blood culture ordered. Sputum culture ordered. Continue zosyn and diflucan today. ID on board with possible changes. (2) Bacteremia due to Gram-negative bacteria Current Visit: Yes Status: Acute Initial blood culture pos for E coli 1/2. sensitive to pip/tazo which he is on, resistant to ampicillin, amp/sulbactam. ID on board. Repeat cultures no growth. Will continue current abx, deescalate as able. Repeat bc drawn today with new onset fever. (3) Acute on chronic renal failure Current Visit: Yes Status: Resolved Cr down to 0.97 today. Will trend Cr, avoid nephrotoxins, and monitor electrolytes replacing as needed. Qualifiers: Acute renal failure type: unspecified Chronic kidney disease stage: unspecified stage Qualified Code(s): N17.9 - Acute kidney failure, unspecified ; N18.9 - Chronic kidney disease, unspecified (4) Perforated viscus Current Visit: Yes Status: Acute S/p exlap, washout, gerri-en-y. Surg following. (5) Lactic acidosis Current Visit: Yes Status: Acute Lactic had high of 5.1, was down to 1.2. Will order lactic now. (6) Anemia Current Visit: No Status: Acute Hgb 7.5 this morning, Stable in 7's since PRBC infusion. Qualifiers: Anemia type: other cause Other causes of anemia: other cause, not classified Qualified Code(s): D64.89 - Other specified anemias (7) Diabetes Current Visit: Yes Status: Chronic Hx of DM. Glucose stable since insulin infusion. Continue infusion for now. Qualifiers: Diabetes mellitus type: type 2 Diabetes mellitus ferry terminal agent insulin use: without ferry terminal agent use Diabetes mellitus complication status: with hyperglycemia Qualified Code(s): E11.65 - Type 2 diabetes mellitus with hyperglycemia (8) VRE (vancomycin-resistant Enterococci) Current Visit: No Status: Inactive Hx of VRE in urine. Treated with outpatient abx with ID. On contact precautions. (9) Obesity (BMI 30.0-34.9) Current Visit: Yes Status: Chronic BMI 34.6. Will recommend lifestyle modifications upon dc. (10) DVT prophylaxis Current Visit: Yes Status: Acute Heparin prophylaxis Subjective Principal diagnosis: Septic shock Interval history: Intubated and sedated. Febrile overnight with Tmax 101.3. Continues to have difficulty with arousability when decreasing sedation. Trialed off propofol and became agitated but not awake with increased RR, increased BP in 200s systolic, and tachycardia in 130's. Objective PUL Vital signs: Last Vital Signs Temp 100.2 F H 06/11/18 06:00 Pulse 123 06/11/18 06:00 Resp 28 06/11/18 06:00 BP 111/68 06/11/18 06:00 Pulse Ox 100 06/11/18 06:00 General appearance: other (Intubated and sedated) Eyes: nonicteric, other (Equal and reactive ) ENT: oropharynx dry (Intubated) Auscultation: bilateral: clear (on vent ) Cardiovascular: other (tachycardic ) Gastrointestinal: hypoactive bowel sounds, soft Extremities: edema (2+) other (sedated) Ventilator Settings Ventilator Settings: Ventilator Settings, Last 8 Hours Ventilator Tidal Volume 500 Setting Ventilator Tidal Volume 500 Setting Ventilator Tidal Volume 500 Setting Ventilator Tidal Volume 500 Setting Ventilator Tidal Volume 500 Setting Ventilator Tidal Volume 500 Setting Ventilator Tidal Volume 500 Setting Ventilator Tidal Volume 500 Setting Ventilator Tidal Volume 500 Setting Ventilator Tidal Volume 500 Setting Ventilator Tidal Volume 500 Setting Ventilator Respiratory Rate 18 Setting Ventilator Respiratory Rate 18 Setting Ventilator Respiratory Rate 18 Setting Ventilator Respiratory Rate 18 Setting Ventilator Respiratory Rate 18 Setting Ventilator Respiratory Rate 18 Setting Ventilator Respiratory Rate 18 Setting Ventilator Respiratory Rate 18 Setting Ventilator Respiratory Rate 18 Setting Ventilator Respiratory Rate 18 Setting Ventilator Respiratory Rate 18 Setting Actual Respiratory Rate 27 Actual Respiratory Rate 31 Actual Respiratory Rate 25 Actual Respiratory Rate 27 Actual Respiratory Rate 30 Actual Respiratory Rate 27 Actual Respiratory Rate 28 Actual Respiratory Rate 29 Actual Respiratory Rate 25 Actual Respiratory Rate 33 Actual Respiratory Rate 27 Positive End Expiratory 5 Pressure Positive End Expiratory 5 Pressure Positive End Expiratory 5 Pressure Positive End Expiratory 5 Pressure Positive End Expiratory 5 Pressure Positive End Expiratory 5 Pressure Positive End Expiratory 5 Pressure Positive End Expiratory 5 Pressure Positive End Expiratory 5 Pressure Positive End Expiratory 5 Pressure Positive End Expiratory 5 Pressure Peak Inspiratory Airway 27 Pressure Peak Inspiratory Airway 17 Pressure Peak Inspiratory Airway 16 Pressure Peak Inspiratory Airway 21 Pressure Peak Inspiratory Airway 18 Pressure Peak Inspiratory Airway 17 Pressure Peak Inspiratory Airway 15 Pressure Peak Inspiratory Airway 15 Pressure Peak Inspiratory Airway 7.5 Pressure Peak Inspiratory Airway 11 Pressure Peak Inspiratory Airway 8.6 Pressure Results - Laboratory Findings CBC and BMP: 06/11/18 03:30 06/11/18 03:30 ABG ABG pH 7.33 pH Units (7.32-7.45) 06/10/18 04:51 ABG pCO2 41 mmHg (35-45) 06/10/18 04:51 ABG pO2 107 mmHg (85-104) H 06/10/18 04:51 ABG O2 Saturation 98 % (95-98) 06/10/18 04:51 PT/INR, D-dimer PT 15.1 Seconds (9.4-12.1) H 06/07/18 06:49 Abnormal lab findings: Abnormal lab results RBC 2.75 M/mcL (4.19-5.50) L 06/11/18 03:30 Hgb 7.5 g/dL (12.9-16.9) L 06/11/18 03:30 Hct 24.1 % (37.5-50.1) L 06/11/18 03:30 MCH 27.3 pg (28.0-33.3) L 06/11/18 03:30 MCHC 31.1 g/dL (31.6-35.5) L 06/11/18 03:30 RDW 16.7 % (11.5-14.5) H 06/11/18 03:30 Immature Gran % 5.2 % (0-4) H 06/11/18 03:30 Nucleated RBCs/100 WBC 0.6 /100 WBC (0) H 06/11/18 03:30 Toxic Granulation Present (Not Present) A 06/08/18 04:35 Large Platelets Present (Not Present) A 06/07/18 03:30 PT 15.1 Seconds (9.4-12.1) H 06/07/18 06:49 ABG pO2 107 mmHg (85-104) H 06/10/18 04:51 ABG Base Excess -4 mEq/L (-2 to 3) L 06/10/18 04:51 Chloride 113 mEq/L (98-107) H 06/11/18 03:30 Carbon Dioxide 20 mEq/L (23-29) L 06/11/18 03:30 BUN 34 mg/dL (6-20) H 06/11/18 03:30 BUN/Creatinine Ratio 36 (6-26) H 06/11/18 03:30 Glucose 154 mg/dL (70-105) H 06/11/18 03:30 POC Glucose 141 mg/dL (70-99) H 06/10/18 23:55 Calculated Osmolality 305 (280-300) H 06/11/18 03:30 Magnesium 1.5 mg/dL (1.6-2.6) L 06/11/18 03:30 Direct Bilirubin 0.9 mg/dL (0.0-0.2) H 06/08/18 04:35 AST 10 Units/L (13-39) L 06/08/18 04:35 Serum Total Protein 4.6 g/dL (6.4-8.9) L 06/08/18 04:35 Albumin 2.8 g/dL (3.5-5.7) L 06/08/18 04:35 Globulin 1.8 g/dL (2.4-3.5) L 06/08/18 04:35 Triglycerides 341 mg/dL (< 150) H 06/10/18 03:14 Gastrin 117 pg/mL (0-100) H 06/03/18 21:23 Urine Clarity Cloudy (Clear) A 06/02/18 09:18 Urine Protein 100 mg/dL (Neg-Trace) H 06/02/18 09:18 Urine Blood Large (Negative) H 06/02/18 09:18 Ur Leukocyte Esterase Moderate (Negative) H 06/02/18 09:18 Urine Microscopic RBC TNTC per hpf (0-3) H 06/02/18 09:18 Urine Microscopic WBC 15-30 per hpf (0-3) H 06/02/18 09:18 Ur Squamous Epith Cells Many per lpf (None-Few) H 06/02/18 09:18 Ur Culture Indicated? NO. (NO) A 06/02/18 09:18 Enterobacteriac sp PCR DETECTED (Not Detect) A 06/02/18 09:18 E. coli (PCR) DETECTED (Not Detect) A 06/02/18 09:18 - Microbiology Findings Microbiology Findings: Microbiology, Last 48 Hours 06/06/18 03:35 Blood Culture - Final Peripheral Venipuncture No growth. Final report. 06/06/18 01:42 Blood Culture - Final Peripheral Venipuncture No growth. Final report. 06/04/18 09:10 Blood Culture - Final Peripheral Venipuncture No growth. Final report. 06/04/18 09:12 Blood Culture - Final Peripheral Venipuncture No growth. Final report. 06/02/18 20:12 Anaerobic Culture - Final Peritoneal Fluid No anaerobes were recovered. - Clinical Findings Intake & Output: Intake & Output 06/10/18 06/10/18 06/11/18 15:59 23:59 07:59 Intake Total 457.9 / 457.9 535.5 / 535.5 400 / 400 Output Total 775 / 775 1108 / 1108 1130 / 1130 Balance -317.1 / -317.1 -572.5 / -572.5 -730 / -730 Weight 114.8 kg - VTE Documentation of Mechanical Device: Intermittent pneumatic compression device Consult Discharge Plan - Plan Referrals: Zafar Hinton MD [Primary Care Provider] - <Tigist Thomas S - Last Filed: 06/11/18 17:11> Date of Encounter: 06/11/18 Objective PUL Vital signs: Last Vital Signs Temp 100.1 F H 06/11/18 12:00 Pulse 115 06/11/18 15:00 Resp 27 06/11/18 15:00 BP 165/98 06/11/18 15:00 Pulse Ox 99 06/11/18 15:00 Ventilator Settings Ventilator Settings: Ventilator Settings, Last 8 Hours Ventilator Tidal Volume 500 Setting Ventilator Tidal Volume 500 Setting Ventilator Tidal Volume 500 Setting Ventilator Tidal Volume 500 Setting Ventilator Tidal Volume 500 Setting Ventilator Tidal Volume 500 Setting Ventilator Tidal Volume 500 Setting Ventilator Tidal Volume 500 Setting Ventilator Tidal Volume 500 Setting Ventilator Tidal Volume 500 Setting Ventilator Tidal Volume 500 Setting Ventilator Respiratory Rate 18 Setting Ventilator Respiratory Rate 18 Setting Ventilator Respiratory Rate 18 Setting Ventilator Respiratory Rate 18 Setting Ventilator Respiratory Rate 18 Setting Ventilator Respiratory Rate 18 Setting Ventilator Respiratory Rate 18 Setting Ventilator Respiratory Rate 18 Setting Ventilator Respiratory Rate 18 Setting Ventilator Respiratory Rate 18 Setting Ventilator Respiratory Rate 18 Setting Actual Respiratory Rate 27 Actual Respiratory Rate 26 Actual Respiratory Rate 26 Actual Respiratory Rate 26 Actual Respiratory Rate 26 Actual Respiratory Rate 26 Actual Respiratory Rate 26 Actual Respiratory Rate 30 Actual Respiratory Rate 22 Actual Respiratory Rate 26 Actual Respiratory Rate 26 Positive End Expiratory 5 Pressure Positive End Expiratory 5 Pressure Positive End Expiratory 5 Pressure Positive End Expiratory 5 Pressure Positive End Expiratory 5 Pressure Positive End Expiratory 5 Pressure Positive End Expiratory 5 Pressure Positive End Expiratory 5 Pressure Positive End Expiratory 5 Pressure Positive End Expiratory 5 Pressure Positive End Expiratory 5 Pressure Peak Inspiratory Airway 8 Pressure Peak Inspiratory Airway 7 Pressure Peak Inspiratory Airway 7 Pressure Peak Inspiratory Airway 7 Pressure Peak Inspiratory Airway 7 Pressure Peak Inspiratory Airway 7 Pressure Peak Inspiratory Airway 7 Pressure Peak Inspiratory Airway 7 Pressure Peak Inspiratory Airway 9 Pressure Peak Inspiratory Airway 38 Pressure Peak Inspiratory Airway 18 Pressure Results - Laboratory Findings CBC and BMP: 06/11/18 03:30 06/11/18 03:30 ABG ABG pH 7.33 pH Units (7.32-7.45) 06/10/18 04:51 ABG pCO2 41 mmHg (35-45) 06/10/18 04:51 ABG pO2 107 mmHg (85-104) H 06/10/18 04:51 ABG O2 Saturation 98 % (95-98) 06/10/18 04:51 PT/INR, D-dimer PT 13.2 Seconds (9.4-12.1) H 06/11/18 09:00 Abnormal lab findings: Abnormal lab results RBC 2.75 M/mcL (4.19-5.50) L 06/11/18 03:30 Hgb 7.5 g/dL (12.9-16.9) L 06/11/18 03:30 Hct 24.1 % (37.5-50.1) L 06/11/18 03:30 MCH 27.3 pg (28.0-33.3) L 06/11/18 03:30 MCHC 31.1 g/dL (31.6-35.5) L 06/11/18 03:30 RDW 16.7 % (11.5-14.5) H 06/11/18 03:30 Immature Gran % 5.2 % (0-4) H 06/11/18 03:30 Nucleated RBCs/100 WBC 0.6 /100 WBC (0) H 06/11/18 03:30 Toxic Granulation Present (Not Present) A 06/08/18 04:35 Large Platelets Present (Not Present) A 06/07/18 03:30 PT 13.2 Seconds (9.4-12.1) H 06/11/18 09:00 ABG pO2 107 mmHg (85-104) H 06/10/18 04:51 ABG Base Excess -4 mEq/L (-2 to 3) L 06/10/18 04:51 Chloride 113 mEq/L (98-107) H 06/11/18 03:30 Carbon Dioxide 20 mEq/L (23-29) L 06/11/18 03:30 BUN 34 mg/dL (6-20) H 06/11/18 03:30 BUN/Creatinine Ratio 36 (6-26) H 06/11/18 03:30 Glucose 154 mg/dL (70-105) H 06/11/18 03:30 POC Glucose 141 mg/dL (70-99) H 06/10/18 23:55 Calculated Osmolality 305 (280-300) H 06/11/18 03:30 Magnesium 1.5 mg/dL (1.6-2.6) L 06/11/18 03:30 Direct Bilirubin 0.4 mg/dL (0.0-0.2) H 06/11/18 09:00 Serum Total Protein 5.6 g/dL (6.4-8.9) L 06/11/18 09:00 Albumin 2.7 g/dL (3.5-5.7) L 06/11/18 09:00 Albumin/Globulin Ratio 0.9 (1.1-2.2) L 06/11/18 09:00 Triglycerides 341 mg/dL (< 150) H 06/10/18 03:14 Gastrin 117 pg/mL (0-100) H 06/03/18 21:23 Urine Clarity Cloudy (Clear) A 06/02/18 09:18 Urine Protein 100 mg/dL (Neg-Trace) H 06/02/18 09:18 Urine Blood Large (Negative) H 06/02/18 09:18 Ur Leukocyte Esterase Moderate (Negative) H 06/02/18 09:18 Urine Microscopic RBC TNTC per hpf (0-3) H 06/02/18 09:18 Urine Microscopic WBC 15-30 per hpf (0-3) H 06/02/18 09:18 Ur Squamous Epith Cells Many per lpf (None-Few) H 06/02/18 09:18 Ur Culture Indicated? NO. (NO) A 06/02/18 09:18 Enterobacteriac sp PCR DETECTED (Not Detect) A 06/02/18 09:18 E. coli (PCR) DETECTED (Not Detect) A 06/02/18 09:18 - Microbiology Findings Microbiology Findings: Microbiology, Last 48 Hours 06/11/18 09:34 Blood Culture - Preliminary Peripheral Venipuncture Culture is incubating and being continuously monitored for growth. Final report to follow. 06/11/18 09:30 Blood Culture - Preliminary Peripheral Venipuncture Culture is incubating and being continuously monitored for growth. Final report to follow. 06/06/18 03:35 Blood Culture - Final Peripheral Venipuncture No growth. Final report. 06/06/18 01:42 Blood Culture - Final Peripheral Venipuncture No growth. Final report. - Clinical Findings Intake & Output: Intake & Output 06/11/18 06/11/18 06/11/18 07:59 15:59 23:59 Intake Total 400 / 400 650 / 650 Output Total 1130 / 1130 2730 / 2730 Balance -730 / -730 -2080 / -2080 Weight 114.8 kg - Attending Attestation - Attending Attestation I saw and evaluated this patient and my medical decision-making was reviewed with the Resident Physician. I agree with the documented findings, disposition and treatment plan as described except to the extent set forth below. We independently had [id number] contact with the patient I spent 33 minutes of Critical Care time with this patient. It involved decision making of high complexity to assess, manipulate, and support vital organ system failure and/or to prevent further life threatening deterioration of the patient's condition. The time involved in the performance of separately reportable procedures was not counted toward critical care time. Patient seen and examined at bedside Labs, radiology, chart personally reviewed. Management was reviewed during multidisciplinary critical care rounds. [employer]: Patient has encephalopathy secondary to toxic/metabolic we will reduce the sedation and see how he wakes up is no focal neurological findings will hold off further imaging and EEG for now but absent seizures is always a possibility in this population. 06/10 EEG done showed generalized encephalopathy , Patient is going for MRI Neurology on board . Will try to run on minimal sedation. 06/11 Patient is still encephalopathic Neurology onboard most likely metabolic encephalopathy. Pulm: Patient Acceptable Oxygenation and Ventilation the Patient Is Waking up Appropriately We Will Do Spontaneous Breathing Trial Patient Will Be a Candidate for Smart Pressure Support Ventilation for liberation. 06/11 Patient has Acceptable oxygenation and ventilation. Patient has increased secretions will send sputum cultures Cards: Septic shock resolved he is hemodynamically stable FEN-GI: Diet according to nutrition Renal: Labs and output reviewed ID: Patient is on broad-spectrum antibiotics for Escherichia coli bacteremia due to intra-abdominal source and also on antifungal for previous history of systemic candidiasis and in the background of perforated viscus patient is followed by ID 06/11 Patient is having this low grade fever with appropriate antibiotics there might be a source control issues will do CT chest, abdomen and pelvis.He might need broadening antibiotic coverage.Will leave to ID team for antibiotic choices Heme/Onc: Thromboprophylaxis Endo: Glucose Monitored Integ/MSK: Skin Care per routine ICU Nursing Protocol to prevent ulcers. Lines: All lines examined without evidence of infection : Dispo: Critically ill CODE: Full code
[2018-06-11] MEDS: Piperacillin/Tazobactam 3.375 GM in 0.9 % Sodium Chloride Mini Bag 100 ML IVPB SCH ×3 (08:22→23:27)
[2018-06-11] MEDS: Fluconazole 200 MG/100 ML 200 MG/100 ML BAG IVPB SCH (08:23)
[2018-06-11] MEDS: Chlorhexidine Rinse 15 ML MOUTHWASH MM SCH ×2 (08:23→20:14)
[2018-06-11] MEDS: Insulin Human Regular 250 UNIT in 0.9 % Sodium Chloride 250 ML IVC SCH (09:00)
[2018-06-11 09:21] LABS: INR 1.2; Prothrombin Time 13.2 Seconds (9.4-12.1)
[2018-06-11 09:23] LABS: Albumin 2.7 g/dL (3.5-5.7); Albumin/Globulin Ratio 0.9 (1.1-2.2); Bilirubin,Direct 0.4 mg/dL (0.0-0.2); Bilirubin,Indirect 0.1 mg/dL (0.0-1.2); Bilirubin,Total 0.5 mg/dL (0.3-1.0); Globulin 2.9 g/dL (2.4-3.5); Total Protein 5.6 g/dL (6.4-8.9)
--- NOTE | 2018-06-11 09:43 | Infectious Disease Progress No ---
Date of Encounter: 06/11/18 Time of Encounter: 09:41 - Assessment and Plan (1) Severe sepsis Current Visit: Yes Status: Acute The patient had 3 sepsis criteria on admission. Likely secondary to bacteremia and intra-abdominal abscess. New onset overnight of fevers, tachycardia, tachypnea of unclear etiology. Chest x-ray this morning was negative for infiltrate. His abdomen is soft and does not appear markedly tender. No evidence of skin or soft tissue infection. He does have a PICC line in the right upper extremity, but clinically, this does not appear infected, although he is at high risk for candidemia due to the use of TPN. Most recent urine and sputum cultures are negative. Blood cultures obtained 06/02/18 her +1 out of 2 sets for Escherichia coli per PCR. Repeat blood cultures drawn 06/04/18 are negative 2 sets. Repeat blood cultures drawn 06/06/18 are negative x 2 sets. CXR completed this morning negative. Repeat blood cultures 2 sets now. Get sputum culture if able. May need to consider CT chest, abdomen and pelvis and/or addition of Micafungin if the patient continues to worsen clinically. Also, we may need to consider adding Dapto if no improvement in the patient's clinical status due to his history of VRE. However, this will not cover the lungs in the event that he is developing PNA that is not manifested on imaging at this point. (2) Bacteremia due to Gram-negative bacteria Current Visit: Yes Status: Acute Causative organism: Escherichia coli per PCR. Source likely intra-abdominal abscess. Blood cultures obtained 06/02/18 are +1 out of 2 sets for Escherichia coli. Repeat blood cultures 06/04/18 are negative 2 sets. Repeat blood cultures 06/06/18 are negative x 2 sets. Repeat blood cultures 2 sets now. Continue Zosyn 3.375 g IV every 8 hours. Duration of treatment depends on the clinical picture. Monitor renal function and a productive toxicity and dose adjust antibiotics. (3) Intra-abdominal abscess Current Visit: No Status: Acute Likely secondary to perforated viscus. Causative organism E. coli. POD #9 Status post exploratory laparotomy, drainage of intra-abdominal abscess by Dr. Maria. Operative note was reviewed. Gross purulence noted and dropped, but no succus, bile, or staining was seen in the abdominal cavity. Continue Zosyn 3.375 g IV every 8 hours for now. Continue fluconazole 200mg IV daily. Dose-adjust antibiotics based on creatinine clearance. Duration of treatment depends on the clinical picture. Wound care and activity restrictions per the surgery team. (4) Perforated abdominal viscus Current Visit: No Status: Acute Initially was thought to likely be secondary to NSAID use. Concern that this perforation may be secondary to the patch they placed previously was laying under pocket of pus which kept irritating it and cause perforation again. POD #6 status post exp lap with antrectomy, closure of duodenal stump, and Gerri en Y. Given the new onset of sepsis, concern for intra-abdominal pathology. May need to consider imaging of the abdomen. Continue Zosyn as stated above. Continue fluconazole 200 mg IV daily. Duration of treatment depends on the clinical picture. Monitor renal and liver function and dose-adjust antibiotics. (5) Acute on chronic renal failure Current Visit: Yes Status: Resolved Likely secondary to severe sepsis. Improved. Continue to trend. Dose adjust antibiotics based on creatinine clearance. Avoid nephrotoxins as able. Qualifiers: Acute renal failure type: unspecified Chronic kidney disease stage: unspecified stage Qualified Code(s): N17.9 - Acute kidney failure, unspecified ; N18.9 - Chronic kidney disease, unspecified (6) Pneumoperitoneum Current Visit: Yes Status: Acute Secondary to perforated viscus. Further management per the general surgery team. (7) Allergy to multiple antibiotics Current Visit: Yes Status: Acute (8) VRE (vancomycin-resistant Enterococci) Current Visit: No Status: Inactive Patient has a history of VRE in the urine. Continue contact precautions per hospital protocol. (9) Venous thromboembolism Current Visit: Yes Status: Acute DVT study showed a chronic venous thrombosis in the right lesser saphenous vein. Anticoagulation per the primary team. (10) Encephalopathy Current Visit: Yes Status: Acute Etiology unclear. Patient minimally responsive on very little sedation. MRI of the brain negative. EEG showed slowing consistent with toxic metabolic encephalopathy. - Subjective Interval history: Patient seen and examined. Patient became febrile and tachycardic overnight. Blood pressure was low, but did not require any vasopressors. Currently off vasopressors. Status post exp lap with antrectomy, closure of duodenal stump, and gerri en Y reconstruction 06/05/18 . Patient currently intubated and sedated on the ventilator. Minimally arousable despite low amounts of sedation. Infect Dis PN-Objective Data - Labs CBC & Chem 7: 06/11/18 03:30 06/11/18 03:30 Labs: Laboratory Results - last 24 hr 06/10/18 06/10/18 06/10/18 01:14 02:09 03:05 WBC RBC Hgb Hct MCV MCH MCHC RDW Plt Count MPV Immature Gran % Seg Neutrophils % Lymphocytes % Monocytes % Eosinophils % Basophils % Neutrophils # Lymphocytes # Monocytes # Eosinophils # Basophils # Nucleated RBCs/100 WBC Platelet Estimate PT INR Sodium Potassium Chloride Carbon Dioxide BUN Creatinine Est GFR ( Amer) Est GFR (Non-Af Amer) BUN/Creatinine Ratio Glucose POC Glucose 118 H 118 H 106 H Calculated Osmolality Calcium Phosphorus Magnesium Total Bilirubin Direct Bilirubin Indirect Bilirubin AST ALT Alkaline Phosphatase Serum Total Protein Albumin Globulin Albumin/Globulin Ratio 06/10/18 06/10/18 06/10/18 05:28 07:03 08:32 WBC RBC Hgb Hct MCV MCH MCHC RDW Plt Count MPV Immature Gran % Seg Neutrophils % Lymphocytes % Monocytes % Eosinophils % Basophils % Neutrophils # Lymphocytes # Monocytes # Eosinophils # Basophils # Nucleated RBCs/100 WBC Platelet Estimate PT INR Sodium Potassium Chloride Carbon Dioxide BUN Creatinine Est GFR ( Amer) Est GFR (Non-Af Amer) BUN/Creatinine Ratio Glucose POC Glucose 136 H 133 H 128 H Calculated Osmolality Calcium Phosphorus Magnesium Total Bilirubin Direct Bilirubin Indirect Bilirubin AST ALT Alkaline Phosphatase Serum Total Protein Albumin Globulin Albumin/Globulin Ratio 06/10/18 06/10/18 06/10/18 10:08 11:18 11:21 WBC 8.5 RBC 2.54 L Hgb 7.3 L Hct 22.9 L MCV 90.2 MCH 28.7 MCHC 31.9 RDW 15.9 H Plt Count 154 MPV 9.7 Immature Gran % 4.7 H Seg Neutrophils % 79.6 Lymphocytes % 9.2 Monocytes % 5.0 Eosinophils % 1.3 Basophils % 0.2 Neutrophils # 6.8 Lymphocytes # 0.8 Monocytes # 0.4 Eosinophils # 0.1 Basophils # 0.0 Nucleated RBCs/100 WBC 0.6 H Platelet Estimate PT INR Sodium Potassium Chloride Carbon Dioxide BUN Creatinine Est GFR ( Amer) Est GFR (Non-Af Amer) BUN/Creatinine Ratio Glucose POC Glucose 119 H 144 H Calculated Osmolality Calcium Phosphorus Magnesium Total Bilirubin Direct Bilirubin Indirect Bilirubin AST ALT Alkaline Phosphatase Serum Total Protein Albumin Globulin Albumin/Globulin Ratio 06/10/18 06/10/18 06/10/18 11:58 13:07 14:55 WBC RBC Hgb Hct MCV MCH MCHC RDW Plt Count MPV Immature Gran % Seg Neutrophils % Lymphocytes % Monocytes % Eosinophils % Basophils % Neutrophils # Lymphocytes # Monocytes # Eosinophils # Basophils # Nucleated RBCs/100 WBC Platelet Estimate PT INR Sodium Potassium Chloride Carbon Dioxide BUN Creatinine Est GFR ( Amer) Est GFR (Non-Af Amer) BUN/Creatinine Ratio Glucose POC Glucose 136 H 146 H 130 H Calculated Osmolality Calcium Phosphorus Magnesium Total Bilirubin Direct Bilirubin Indirect Bilirubin AST ALT Alkaline Phosphatase Serum Total Protein Albumin Globulin Albumin/Globulin Ratio 06/10/18 06/10/18 06/10/18 17:07 19:20 20:12 WBC RBC Hgb Hct MCV MCH MCHC RDW Plt Count MPV Immature Gran % Seg Neutrophils % Lymphocytes % Monocytes % Eosinophils % Basophils % Neutrophils # Lymphocytes # Monocytes # Eosinophils # Basophils # Nucleated RBCs/100 WBC Platelet Estimate PT INR Sodium Potassium Chloride Carbon Dioxide BUN Creatinine Est GFR ( Amer) Est GFR (Non-Af Amer) BUN/Creatinine Ratio Glucose POC Glucose 141 H 138 H 129 H Calculated Osmolality Calcium Phosphorus Magnesium Total Bilirubin Direct Bilirubin Indirect Bilirubin AST ALT Alkaline Phosphatase Serum Total Protein Albumin Globulin Albumin/Globulin Ratio 06/10/18 06/10/18 06/10/18 20:56 22:25 23:06 WBC RBC Hgb Hct MCV MCH MCHC RDW Plt Count MPV Immature Gran % Seg Neutrophils % Lymphocytes % Monocytes % Eosinophils % Basophils % Neutrophils # Lymphocytes # Monocytes # Eosinophils # Basophils # Nucleated RBCs/100 WBC Platelet Estimate PT INR Sodium Potassium Chloride Carbon Dioxide BUN Creatinine Est GFR ( Amer) Est GFR (Non-Af Amer) BUN/Creatinine Ratio Glucose POC Glucose 146 H 124 H 148 H Calculated Osmolality Calcium Phosphorus Magnesium Total Bilirubin Direct Bilirubin Indirect Bilirubin AST ALT Alkaline Phosphatase Serum Total Protein Albumin Globulin Albumin/Globulin Ratio 06/10/18 06/11/18 06/11/18 23:55 03:30 03:30 WBC 9.8 RBC 2.75 L Hgb 7.5 L Hct 24.1 L MCV 87.6 MCH 27.3 L MCHC 31.1 L RDW 16.7 H Plt Count 188 MPV 9.4 Immature Gran % 5.2 H Seg Neutrophils % 78.2 Lymphocytes % 9.5 Monocytes % 6.2 Eosinophils % 0.6 Basophils % 0.3 Neutrophils # 7.7 Lymphocytes # 0.9 Monocytes # 0.6 Eosinophils # 0.1 Basophils # 0.0 Nucleated RBCs/100 WBC 0.6 H Platelet Estimate Normal PT INR Sodium Potassium Chloride Carbon Dioxide BUN Creatinine Est GFR ( Amer) Est GFR (Non-Af Amer) BUN/Creatinine Ratio Glucose POC Glucose 141 H Calculated Osmolality Calcium Phosphorus 4.1 Magnesium 1.5 L Total Bilirubin Direct Bilirubin Indirect Bilirubin AST ALT Alkaline Phosphatase Serum Total Protein Albumin Globulin Albumin/Globulin Ratio 06/11/18 06/11/18 06/11/18 03:30 09:00 09:00 WBC RBC Hgb Hct MCV MCH MCHC RDW Plt Count MPV Immature Gran % Seg Neutrophils % Lymphocytes % Monocytes % Eosinophils % Basophils % Neutrophils # Lymphocytes # Monocytes # Eosinophils # Basophils # Nucleated RBCs/100 WBC Platelet Estimate PT 13.2 H INR 1.2 Sodium 142 Potassium 4.5 Chloride 113 H Carbon Dioxide 20 L BUN 34 H Creatinine 0.95 Est GFR ( Amer) > 60 Est GFR (Non-Af Amer) > 60 BUN/Creatinine Ratio 36 H Glucose 154 H POC Glucose Calculated Osmolality 305 H Calcium 9.3 Phosphorus Magnesium Total Bilirubin 0.5 Direct Bilirubin 0.4 H Indirect Bilirubin 0.1 AST 18 ALT 15 Alkaline Phosphatase 70 Serum Total Protein 5.6 L Albumin 2.7 L Globulin 2.9 Albumin/Globulin Ratio 0.9 L Cultures: Cultures 06/06/18 03:35 Blood Culture - Final Peripheral Venipuncture No growth. Final report. 06/06/18 01:42 Blood Culture - Final Peripheral Venipuncture No growth. Final report. 06/04/18 09:10 Blood Culture - Final Peripheral Venipuncture No growth. Final report. 06/04/18 09:12 Blood Culture - Final Peripheral Venipuncture No growth. Final report. 06/02/18 20:12 Anaerobic Culture - Final Peritoneal Fluid No anaerobes were recovered. 06/06/18 09:20 Urine Culture - Final Urine,[place] No growth. 06/07/18 03:48 Sputum Culture - Final Sputum 06/02/18 20:12 Body Fluid Culture - Final Peritoneal Fluid Escherichia coli - Impressions Impressions Brain MRI 06/10/18 12:40 IMPRESSION: No acute intracranial abnormality detected. Left parietotemporal scalp soft tissue swelling and edema. Correlate for a history of trauma. D/ / Juan Antonio Quinteros MD / Juan Antonio Quinteros MD Interpreting Provider: Juan Antonio Quinteros MD Chest X-Ray 06/11/18 04:00 IMPRESSION: 1. Nasogastric tube has been pulled back with proximal side-port in the distal esophagus and tip at the gastric cardia. Advancement by 10 cm is recommended. 2. Otherwise no significant change. D/ / 06/11/2018 08:23:49 Franklin Finn MD / earnold Interpreting Provider: Franklin Finn MD Exam - Constitutional Vitals: Temp Pulse Resp BP Pulse Ox 97.4 F L 105 26 169/106 100 06/11/18 08:00 06/11/18 09:00 06/11/18 09:00 06/11/18 09:00 06/11/18 09:00 General appearance: no acute distress, obese, no febrile - Head Head exam: Present: atraumatic, normal inspection, normocephalic - Eye Eye exam: Present: normal appearance, PERRL Pupils: Present: normal accommodation - ENT ENT exam: Present: mucous membranes moist - Neck Neck exam: Present: normal inspection - Respiratory Respiratory exam: Present: rhonchi (Scattered throughout), tachypnea. Absent: rales, respiratory distress - Cardiovascular Cardiovascular exam: Present: +S1, +S2, tachycardia. Absent: irregular rhythm - GI/Abdominal GI/Abdominal exam: Present: distended (Obese), hypoactive bowel sounds, soft. Absent: tenderness Additional comments: Midline abdominal incision dressing clean, dry, and intact. Wound edges are well approximated with guille intact. 3 areas of wound dehiscence with packing noted. No surrounding erythema, fluctuance, or drainage noted. [place] catheter noted to be draining clear yellow urine. The G-tube noted with moderate amount of bilious contents. SARBJIT drain noted left abdomen with a small amount of serous drainage. SARBJIT drain noted to the right abdomen with moderate amount of bilious contents. - Extremities Exam Extremities exam: Present: pedal edema (2+ bilateral lower extremities). Absent : joint swelling, tenderness - Neurological Exam Neurological exam: Present: altered (Minimally arousable to verbal or painful stimuli. Does not follow commands.) - Skin Skin exam: Present: dry, intact, normal color, warm - Additional findings Additional findings: Generally edematous with anasarca noted. - VTE Documentation of Mechanical Device: Intermittent pneumatic compression device Consult Discharge Plan - Plan Referrals: Zafar Hinton MD [Primary Care Provider] - - Attending Attestation I examined this patient and my medical decision-making was reviewed with the Resident Physician. I agree with the documented findings, disposition and treatment plan as described except to the extent set forth below. Discussed with was at bedside. Also discussed with the pulmonary ICU team. We will get CT abdomen pelvis and maybe CT chest as well. Await cultures of the sputum and the blood to finalize. Clinically he seems to be better than earlier this morning. MRI of the head and EEG reviewed.
[2018-06-11] MEDS: Furosemide 40 MG/4 ML VIAL IVP SCH (11:31)
[2018-06-11] MEDS: Haloperidol Lactate 5 MG/ML VIAL IVP SCH ×2 (11:32→20:15)
[2018-06-11] MEDS: FentaNYL (PF) 1,000 MCG in 0.9 % Sodium Chloride 80 ML IVC SCH (12:40)
[2018-06-11] MEDS ORDERED: Clinimix E 5%-15% SOLUTION 2,000 ML, Parenteral Amino Acid 10% 200 ML with MVI, adult ... IVC SCH (17:00)
[2018-06-11 21:43] LABS: BUN/Creatinine Ratio 38 (6-26); Blood Urea Nitrogen 38 mg/dL (6-20); Calcium 9.4 mg/dL (8.6-10.3); Carbon Dioxide 25 mEq/L (23-29); Chloride 108 mEq/L (98-107); Glucose 152 mg/dL (70-105); Osmolality,Calculated 306 (280-300); Potassium 4.1 mEq/L (3.5-5.1); Sodium 142 mEq/L (136-145); eGFR For Non-African Americans > 60 (> 60)
[2018-06-12] MEDS: Artificial Tears SOLN 15 ML BOTTLE BOTH EYES SCH ×6 (03:28→23:01)
[2018-06-12] MEDS: Haloperidol Lactate 5 MG/ML VIAL IVP SCH ×2 (03:33→13:07)
[2018-06-12 03:34] LABS: Basophils % 0.3 %; Eosinophils # 0.1 K/mcL (0.0-0.6); Eosinophils % 0.6 %; Hematocrit 23.7 % (37.5-50.1); Hemoglobin 7.5 g/dL (12.9-16.9); Immature Granulocytes % 4.6 % (0-4); Lymphocytes # 1.1 K/mcL (0.6-4.6); Lymphocytes % 11.3 %; Mean Corpuscular HGB Conc 31.6 g/dL (31.6-35.5); Mean Corpuscular Hemoglobin 28.1 pg (28.0-33.3); Mean Corpuscular Volume 88.8 fL (83.0-100.0); Mean Platelet Volume 9.9 fL (9.4-12.4); Monocytes # 0.6 K/mcL (0.0-1.3); Neutrophils # 7.8 K/mcL (1.6-8.9); Nucleated Red Blood Cells 0.4 /100 WBC (0); Platelet Count 211 K/mcL (140-400); Red Blood Count 2.67 M/mcL (4.19-5.50); Red Cell Distribution Width 16.6 % (11.5-14.5); Segmented Neutrophils % 77.2 %
[2018-06-12 03:56] LABS: Magnesium 1.7 mg/dL (1.6-2.6); Phosphorous 4.1 mg/dL (2.7-4.5)
[2018-06-12 03:57] LABS: Alanine Aminotransferase 19 Units/L (7-52); Albumin 2.7 g/dL (3.5-5.7); Albumin/Globulin Ratio 0.9 (1.1-2.2); Alkaline Phosphatase 77 Units/L (34-104); Aspartate Amino Transferase 22 Units/L (13-39); BUN/Creatinine Ratio 37 (6-26); Bilirubin,Direct 0.3 mg/dL (0.0-0.2); Bilirubin,Indirect 0.2 mg/dL (0.0-1.2); Bilirubin,Total 0.5 mg/dL (0.3-1.0); Blood Urea Nitrogen 36 mg/dL (6-20); Calcium 9.3 mg/dL (8.6-10.3); Carbon Dioxide 23 mEq/L (23-29); Chloride 108 mEq/L (98-107); Globulin 2.9 g/dL (2.4-3.5); Glucose 155 mg/dL (70-105); Osmolality,Calculated 301 (280-300); Potassium 4.2 mEq/L (3.5-5.1); Sodium 140 mEq/L (136-145); Total Protein 5.6 g/dL (6.4-8.9); eGFR For Non-African Americans > 60 (> 60)
[2018-06-12] MEDS: *HR* Heparin 5,000 UNIT/ML VIAL SQ SCH ×3 (05:27→20:28)
[2018-06-12] MEDS: Pantoprazole 40 MG VIAL IVP SCH ×2 (05:27→18:17)
[2018-06-12] MEDS: Dexmedetomidine HCl 400 MCG/100 ML MLS IVC SCH ×4 (05:28→21:41)
[2018-06-12] MEDS: FentaNYL (PF) 1,000 MCG in 0.9 % Sodium Chloride 80 ML IVC SCH ×3 (06:09→20:10)
[2018-06-12] MEDS: Insulin Human Regular 250 UNIT in 0.9 % Sodium Chloride 250 ML IVC SCH (06:10)
--- NOTE | 2018-06-12 08:01 | Pulmonology Progress Note ---
<Nathaniel Kumar - Last Filed: 06/12/18 11:56> Date of Encounter: 06/12/18 Time of Encounter: 07:30 Assessment and Plan (1) Septic shock due to Escherichia coli Current Visit: Yes Status: Acute Most likely 2/2 intraabdominal abscess with purulant fluid collections. 1/2 initial blood cultures pos E coli. Initial body fluid culture pos E coli. Remains intubated and sedated. Fever down from yesterday. Off propofol now. Precedex trialed off at night with haldol on board, became tachycardic and hypertensive. Will continue to titrate precedex down. Was arousable to voice today, following commands, squeezed hands and moved toes, although slowly. EEG showed generalized slowing, MRI brain without any acute abnormality. Likely metabolic. CT chest/abd/pelvis yesterday, wedge shaped LLL consolidation, possible atelectesis, infection, or infarct. ~4x5x5 cm area in RUQ, likely developing abscess. Compared CT's with IR today and appears to be 2 separate areas with air fluid levels. IR to place [address] today. WBC 10 today. lactic 1.1. Blood culture pending. Sputum culture pending. Continue zosyn and diflucan today. ID on board will manage abx changes. Status improved some today. (2) Bacteremia due to Gram-negative bacteria Current Visit: Yes Status: Acute Initial blood culture pos for E coli 1/2. sensitive to pip/tazo which he is on, resistant to ampicillin, amp/sulbactam. ID on board. Repeat cultures no growth. Will continue current abx, deescalate as able. Repeat bc drawn yst and pending. (3) Acute on chronic renal failure Current Visit: Yes Status: Resolved Cr 0.98 today. Will trend Cr, uop almost 7L last 24 hours since single IV lasix given, electrolytes stable. Will avoid nephrotoxins, and monitor electrolytes replacing as needed. Qualifiers: Acute renal failure type: unspecified Chronic kidney disease stage: unspecified stage Qualified Code(s): N17.9 - Acute kidney failure, unspecified ; N18.9 - Chronic kidney disease, unspecified (4) Perforated viscus Current Visit: Yes Status: Acute S/p exlap, washout, [id number]-[id number]. Surg following. (5) Lactic acidosis Current Visit: Yes Status: Acute Lactic had high of 5.1, 1.1 today. (6) Anemia Current Visit: No Status: Acute Hgb 7.5 this morning, Stable in 7's since PRBC infusion. Qualifiers: Anemia type: other cause Other causes of anemia: other cause, not classified Qualified Code(s): D64.89 - Other specified anemias (7) Diabetes Current Visit: Yes Status: Chronic Hx of DM. On TPN, glucose stable since insulin infusion. Continue infusion for now. Qualifiers: Diabetes mellitus type: type 2 Diabetes mellitus senior living insulin use: without senior living use Diabetes mellitus complication status: with hyperglycemia Qualified Code(s): E11.65 - Type 2 diabetes mellitus with hyperglycemia (8) VRE (vancomycin-resistant Enterococci) Current Visit: No Status: Inactive Hx of VRE in urine. Treated with outpatient abx with ID. On contact precautions. (9) Obesity (BMI 30.0-34.9) Current Visit: Yes Status: Chronic BMI 34.6. Will recommend lifestyle modifications upon dc. (10) DVT prophylaxis Current Visit: Yes Status: Acute Heparin prophylaxis Subjective Principal diagnosis: Septic shock Interval history: Intubated and sedated. Afebrile overnight. Would open eyes when asked verbally today, followed commands, partial squeeze of hands and able to move toes. Trialed off precedex overnight and became tachycardic and hypertensive. Objective PUL Vital signs: Last Vital Signs Temp 99.7 F H 06/12/18 07:00 Pulse 101 06/12/18 07:00 Resp 20 06/12/18 07:00 BP 124/73 06/12/18 07:00 Pulse Ox 100 06/12/18 07:00 General appearance: asleep (intubated and sedated. Arousable to voice, partial squeeze with R hand but not L) Eyes: nonicteric, other (Equal and reactive) ENT: oropharynx moist Auscultation: bilateral: clear (On vent) Cardiovascular: other (tachycardic) Gastrointestinal: hypoactive bowel sounds, soft, other ([address]) Extremities: no cyanosis, edema other (sedated) Ventilator Settings Ventilator Settings: Ventilator Settings, Last 8 Hours Ventilator Tidal Volume 500 Setting Ventilator Tidal Volume 500 Setting Ventilator Tidal Volume 500 Setting Ventilator Tidal Volume 500 Setting Ventilator Tidal Volume 500 Setting Ventilator Tidal Volume 500 Setting Ventilator Tidal Volume 500 Setting Ventilator Tidal Volume 500 Setting Ventilator Tidal Volume 500 Setting Ventilator Tidal Volume 500 Setting Ventilator Tidal Volume 500 Setting Ventilator Tidal Volume 500 Setting Ventilator Respiratory Rate 18 Setting Ventilator Respiratory Rate 18 Setting Ventilator Respiratory Rate 18 Setting Ventilator Respiratory Rate 18 Setting Ventilator Respiratory Rate 18 Setting Ventilator Respiratory Rate 18 Setting Ventilator Respiratory Rate 18 Setting Ventilator Respiratory Rate 18 Setting Ventilator Respiratory Rate 18 Setting Ventilator Respiratory Rate 18 Setting Ventilator Respiratory Rate 18 Setting Ventilator Respiratory Rate 18 Setting Actual Respiratory Rate 20 Actual Respiratory Rate 19 Actual Respiratory Rate 20 Actual Respiratory Rate 20 Actual Respiratory Rate 21 Actual Respiratory Rate 19 Actual Respiratory Rate 19 Actual Respiratory Rate 19 Actual Respiratory Rate 24 Actual Respiratory Rate 21 Actual Respiratory Rate 24 Actual Respiratory Rate 21 Positive End Expiratory 5 Pressure Positive End Expiratory 5 Pressure Positive End Expiratory 5 Pressure Positive End Expiratory 5 Pressure Positive End Expiratory 5 Pressure Positive End Expiratory 5 Pressure Positive End Expiratory 5 Pressure Positive End Expiratory 5 Pressure Positive End Expiratory 5 Pressure Positive End Expiratory 5 Pressure Positive End Expiratory 5 Pressure Positive End Expiratory 5 Pressure Peak Inspiratory Airway 14 Pressure Peak Inspiratory Airway 6.5 Pressure Peak Inspiratory Airway 6.4 Pressure Peak Inspiratory Airway 6.2 Pressure Peak Inspiratory Airway 6.9 Pressure Peak Inspiratory Airway 9.2 Pressure Peak Inspiratory Airway 13 Pressure Peak Inspiratory Airway 17 Pressure Peak Inspiratory Airway 17 Pressure Peak Inspiratory Airway 17 Pressure Peak Inspiratory Airway 10 Pressure Peak Inspiratory Airway 13 Pressure Results - Laboratory Findings CBC and BMP: 06/12/18 03:20 06/12/18 03:20 ABG ABG pH 7.33 pH Units (7.32-7.45) 06/10/18 04:51 ABG pCO2 41 mmHg (35-45) 06/10/18 04:51 ABG pO2 107 mmHg (85-104) H 06/10/18 04:51 ABG O2 Saturation 98 % (95-98) 06/10/18 04:51 PT/INR, D-dimer PT 13.2 Seconds (9.4-12.1) H 06/11/18 09:00 Abnormal lab findings: Abnormal lab results RBC 2.67 M/mcL (4.19-5.50) L 06/12/18 03:20 Hgb 7.5 g/dL (12.9-16.9) L 06/12/18 03:20 Hct 23.7 % (37.5-50.1) L 06/12/18 03:20 RDW 16.6 % (11.5-14.5) H 06/12/18 03:20 Immature Gran % 4.6 % (0-4) H 06/12/18 03:20 Nucleated RBCs/100 WBC 0.4 /100 WBC (0) H 06/12/18 03:20 Toxic Granulation Present (Not Present) A 06/08/18 04:35 Large Platelets Present (Not Present) A 06/07/18 03:30 PT 13.2 Seconds (9.4-12.1) H 06/11/18 09:00 ABG pO2 107 mmHg (85-104) H 06/10/18 04:51 ABG Base Excess -4 mEq/L (-2 to 3) L 06/10/18 04:51 Chloride 108 mEq/L (98-107) H 06/12/18 03:20 BUN 36 mg/dL (6-20) H 06/12/18 03:20 BUN/Creatinine Ratio 37 (6-26) H 06/12/18 03:20 Glucose 155 mg/dL (70-105) H 06/12/18 03:20 POC Glucose 154 mg/dL (70-99) H 06/11/18 23:48 Calculated Osmolality 301 (280-300) H 06/12/18 03:20 Direct Bilirubin 0.3 mg/dL (0.0-0.2) H 06/12/18 03:20 Serum Total Protein 5.6 g/dL (6.4-8.9) L 06/12/18 03:20 Albumin 2.7 g/dL (3.5-5.7) L 06/12/18 03:20 Albumin/Globulin Ratio 0.9 (1.1-2.2) L 06/12/18 03:20 Triglycerides 341 mg/dL (< 150) H 06/10/18 03:14 Gastrin 117 pg/mL (0-100) H 06/03/18 21:23 Urine Clarity Cloudy (Clear) A 06/02/18 09:18 Urine Protein 100 mg/dL (Neg-Trace) H 06/02/18 09:18 Urine Blood Large (Negative) H 06/02/18 09:18 Ur Leukocyte Esterase Moderate (Negative) H 06/02/18 09:18 Urine Microscopic RBC TNTC per hpf (0-3) H 06/02/18 09:18 Urine Microscopic WBC 15-30 per hpf (0-3) H 06/02/18 09:18 Ur Squamous Epith Cells Many per lpf (None-Few) H 06/02/18 09:18 Ur Culture Indicated? NO. (NO) A 06/02/18 09:18 Enterobacteriac sp PCR DETECTED (Not Detect) A 06/02/18 09:18 E. coli (PCR) DETECTED (Not Detect) A 06/02/18 09:18 - Microbiology Findings Microbiology Findings: Microbiology, Last 48 Hours 06/11/18 15:00 Sputum Culture - Preliminary Aspirate 06/11/18 09:34 Blood Culture - Preliminary Peripheral Venipuncture Culture is incubating and being continuously monitored for growth. Final report to follow. 06/11/18 09:30 Blood Culture - Preliminary Peripheral Venipuncture Culture is incubating and being continuously monitored for growth. Final report to follow. 06/06/18 03:35 Blood Culture - Final Peripheral Venipuncture No growth. Final report. 06/06/18 01:42 Blood Culture - Final Peripheral Venipuncture No growth. Final report. - Clinical Findings Intake & Output: Intake & Output 06/11/1818 18 15:59 23:59 07:59 Intake Total 650 / 650 2410 / 2410 802.5 / 802.5 Output Total 2730 / 2730 3260 / 3260 1810 / 1810 Balance -2080 / -2080 -850 / -850 -1007.5 / -1007.5 - VTE Documentation of Mechanical Device: Intermittent pneumatic compression device Consult Discharge Plan - Plan Referrals: Zafar Hinton MD [Primary Care Provider] - <Tigist Thomas - Last Filed: 06/12/18 15:11> Date of Encounter: 06/12/18 Objective PUL Vital signs: Last Vital Signs Temp 99.7 F H 06/12/18 11:00 Pulse 91 06/12/18 14:00 Resp 19 06/12/18 14:00 BP 112/65 06/12/18 14:00 Pulse Ox 95 06/12/18 14:00 Ventilator Settings Ventilator Settings: Ventilator Settings, Last 8 Hours Ventilator Tidal Volume 500 Setting Ventilator Tidal Volume 500 Setting Ventilator Tidal Volume 500 Setting Ventilator Tidal Volume 500 Setting Ventilator Respiratory Rate 18 Setting Ventilator Respiratory Rate 18 Setting Ventilator Respiratory Rate 18 Setting Ventilator Respiratory Rate 18 Setting Actual Respiratory Rate 23 Actual Respiratory Rate 22 Actual Respiratory Rate 24 Actual Respiratory Rate 22 Actual Respiratory Rate 26 Positive End Expiratory 5 Pressure Positive End Expiratory 5 Pressure Positive End Expiratory 5 Pressure Positive End Expiratory 5 Pressure Positive End Expiratory 5 Pressure Peak Inspiratory Airway 22 Pressure Peak Inspiratory Airway 21 Pressure Peak Inspiratory Airway 20 Pressure Peak Inspiratory Airway 15 Pressure Results - Laboratory Findings CBC and BMP: 06/12/18 03:20 06/12/18 03:20 ABG ABG pH 7.33 pH Units (7.32-7.45) 06/10/18 04:51 ABG pCO2 41 mmHg (35-45) 06/10/18 04:51 ABG pO2 107 mmHg (85-104) H 06/10/18 04:51 ABG O2 Saturation 98 % (95-98) 06/10/18 04:51 PT/INR, D-dimer PT 13.2 Seconds (9.4-12.1) H 06/11/18 09:00 Abnormal lab findings: Abnormal lab results RBC 2.67 M/mcL (4.19-5.50) L 06/12/18 03:20 Hgb 7.5 g/dL (12.9-16.9) L 06/12/18 03:20 Hct 23.7 % (37.5-50.1) L 06/12/18 03:20 RDW 16.6 % (11.5-14.5) H 06/12/18 03:20 Immature Gran % 4.6 % (0-4) H 06/12/18 03:20 Nucleated RBCs/100 WBC 0.4 /100 WBC (0) H 06/12/18 03:20 Toxic Granulation Present (Not Present) A 06/08/18 04:35 Large Platelets Present (Not Present) A 06/07/18 03:30 PT 13.2 Seconds (9.4-12.1) H 06/11/18 09:00 ABG pO2 107 mmHg (85-104) H 06/10/18 04:51 ABG Base Excess -4 mEq/L (-2 to 3) L 06/10/18 04:51 Chloride 108 mEq/L (98-107) H 06/12/18 03:20 BUN 36 mg/dL (6-20) H 06/12/18 03:20 BUN/Creatinine Ratio 37 (6-26) H 06/12/18 03:20 Glucose 155 mg/dL (70-105) H 06/12/18 03:20 POC Glucose 154 mg/dL (70-99) H 06/11/18 23:48 Calculated Osmolality 301 (280-300) H 06/12/18 03:20 Direct Bilirubin 0.3 mg/dL (0.0-0.2) H 06/12/18 03:20 Serum Total Protein 5.6 g/dL (6.4-8.9) L 06/12/18 03:20 Albumin 2.7 g/dL (3.5-5.7) L 06/12/18 03:20 Albumin/Globulin Ratio 0.9 (1.1-2.2) L 06/12/18 03:20 Triglycerides 341 mg/dL (< 150) H 06/10/18 03:14 Gastrin 117 pg/mL (0-100) H 06/03/18 21:23 Urine Clarity Cloudy (Clear) A 06/02/18 09:18 Urine Protein 100 mg/dL (Neg-Trace) H 06/02/18 09:18 Urine Blood Large (Negative) H 06/02/18 09:18 Ur Leukocyte Esterase Moderate (Negative) H 06/02/18 09:18 Urine Microscopic RBC TNTC per hpf (0-3) H 06/02/18 09:18 Urine Microscopic WBC 15-30 per hpf (0-3) H 06/02/18 09:18 Ur Squamous Epith Cells Many per lpf (None-Few) H 06/02/18 09:18 Ur Culture Indicated? NO. (NO) A 06/02/18 09:18 Enterobacteriac sp PCR DETECTED (Not Detect) A 06/02/18 09:18 E. coli (PCR) DETECTED (Not Detect) A 06/02/18 09:18 - Microbiology Findings Microbiology Findings: Microbiology, Last 48 Hours 06/11/18 15:00 Sputum Culture - Preliminary Aspirate 06/11/18 09:34 Blood Culture - Preliminary Peripheral Venipuncture Culture is incubating and being continuously monitored for growth. Final report to follow. 06/11/18 09:30 Blood Culture - Preliminary Peripheral Venipuncture Culture is incubating and being continuously monitored for growth. Final report to follow. 06/06/18 03:35 Blood Culture - Final Peripheral Venipuncture No growth. Final report. 06/06/18 01:42 Blood Culture - Final Peripheral Venipuncture No growth. Final report. - Clinical Findings Intake & Output: Intake & Output 06/11/18 06/12/18 06/12/18 23:59 07:59 15:59 Intake Total 2410 / 2410 811.5 / 811.5 378 / 378 Output Total 3260 / 3260 2340 / 2340 735 / 735 Balance -850 / -850 -1528.5 / -1528.5 -357 / -357 Weight 110.9 kg - Attending Attestation - Attending Attestation I saw and evaluated this patient and my medical decision-making was reviewed with the Resident Physician. I agree with the documented findings, disposition and treatment plan as described except to the extent set forth below. We independently had [id number] contact with the patient I spent 33 minutes of Critical Care time with this patient. It involved decision making of high complexity to assess, manipulate, and support vital organ system failure and/or to prevent further life threatening deterioration of the patient's condition. The time involved in the performance of separately reportable procedures was not counted toward critical care time. Patient seen and examined at bedside Labs, radiology, chart personally reviewed. Management was reviewed during multidisciplinary critical care rounds. TITLE ASSISTANT: Patient has encephalopathy secondary to toxic/metabolic we will reduce the sedation and see how he wakes up is no focal neurological findings will hold off further imaging and EEG for now but absent seizures is always a possibility in this population. 06/10 EEG done showed generalized encephalopathy , Patient is going for MRI Neurology on board . Will try to run on minimal sedation. 06/11 Patient is still encephalopathic Neurology onboard most likely metabolic encephalopathy. 06/12 Patient is alert and following commands. Patient has this hypoactive delirium which responded to haloperidol will repeat EKG to see the QT interval. Pulm: Patient Acceptable Oxygenation and Ventilation the Patient Is Waking up Appropriately We Will Do Spontaneous Breathing Trial Patient Will Be a Candidate for Smart Pressure Support Ventilation for liberation. 06/11 Patient has Acceptable oxygenation and ventilation. Patient has increased secretions will send sputum cultures 06/12 and acceptable oxygenation and ventilation tried smart care per support ventilation patient tolerated well initially but he went to the procedure for drainage of intra-abdominal abscess I changed to volume control ventilation will do smart care later during the day. The abdomen showed some bilateral lower lobe atelectasis/consolidation. Continue broad-spectrum antibiotics according to ID Cards: Septic shock resolved he is hemodynamically stable. FEN-GI: Diet according to nutrition Renal: Labs and output reviewed ID: Patient is on broad-spectrum antibiotics for Escherichia coli bacteremia due to intra-abdominal source and also on antifungal for previous history of systemic candidiasis and in the background of perforated viscus patient is followed by ID 06/11 Patient is having this low grade fever with appropriate antibiotics there might be a source control issues will do CT chest, abdomen and pelvis.He might need broadening antibiotic coverage.Will leave to ID team for antibiotic choices 06/[address] abdomen pelvis showed some intra-abdominal abscess which was drained main source radiology showed 10 mL of foul-smelling pus was removed and was sent to culture. To continue antimicrobials according to infectious disease Heme/Onc: Thromboprophylaxis Endo: Glucose Monitored Integ/MSK: Skin Care per routine ICU Nursing Protocol to prevent ulcers. Lines: All lines examined without evidence of infection : Dispo: Critically ill CODE: Full code
--- NOTE | 2018-06-12 08:12 | General Surgery Progress Note ---
<Hawa Carlos - Last Filed: 06/12/18 07:33> Date of Encounter: 06/12/18 Time of Encounter: 07:33 - Assessment and Plan (1) Perforated viscus Current Visit: Yes Status: Acute Date of procedure: 06/05/18 Pre-op diagnosis: Recurrent duodenal perforated ulcer Post-op diagnosis: same Procedure: #1 antrectomy with Dagoberto-en-Y reconstruction. #2 +30% (redo, open abdomen, tremendous inflammation Anesthesia: GETA Surgeon: Pablo Hernandez Was there an pharmacy affairs assistant present: Yes Cushion Sewer: Benedict Serrano Estimated blood loss (cc): 250 POD #7 as above (distal duodenal fistula creation). Final pathology noted : Ulcerative small bowel mucosa with diffuse acute and chronic serositis Brief summary: History of ex-lap, evie patch of duodenal ulcer 2/2 acute abdomen/free air on 04/05/2018; Returned to [facility] 06/02 with complaints of severe abdominal pain and noted to have pneumoperitoneum. He returned to the operating room on 06/02/2018 where he underwent an exploratory laparotomy, drainage of intra-abdominal abscess, and application of abthera therapy. He was taken back to the OR where he underwent the above procedure. Abd/pelvis CT 06/11 with inflammatory change in the peritoneal subjacent to the laparotomy area. Phlegmon/developing abscess is seen in the right lower quadrant measuring 3.9 x 5.4 x 4.6 cm just inferior to the right lateral catheter tip. It is unlikely that this small area is the cause of his sepsis, although may be a contributing factor. Also noted 2 areas of wedge-shaped consolidation in the lower lung guerra which represent atelectasis versus infection, infarction not excluded. Given the copious amount of Brown frothy drainage from his ET tube suctioning on 06/11/2018 suspect this is the underlying factor of his severe sepsis. 2 SARBJIT drains noted. Right abdomen is with bilious output that is decreasing- consistent with closing of the duodenal fistula. Left abdomen with minimal output. NG is in place and noted at 58 cm. Side port is at the GE junction. Given surgery wishes to reduce the risk of NG near the duodenum stump/fistula, Will not advance at this time d/t for decompression only and he does not appear distended. He has remained intubated and under ICU cares since surgery 09/03. Noted encephalopathy which seems to be improving today as he followed bedside RN commands today. Remains febrile and tachy Plan: Continue ICU care Continue supportive care and discomfort management Continue GI and DVT prophylaxis OG to remain secured at 58 cm to LIWS; if he is extubated, he will need NG placement NPO IVF TPN ATBX per primary team PT/OT when appropriate Fluid management per critical care Consult IR for possible drain placement for developing abscess. Current drain needs to remain in position for s/p fistula as above cultures ordered for IR drain placement (2) Sepsis Current Visit: Yes Status: Acute Management per ICU Qualifiers: Sepsis type: sepsis due to unspecified organism Qualified Code(s): A41.9 - Sepsis, unspecified organism (3) Encephalopathy Current Visit: Yes Status: Acute Improving. Management per ICU Objective Vital Signs - Last 8 Hours Temp Pulse Resp BP Pulse Ox 06/12/18 06:00 101 19 140/80 100 06/12/18 05:32 19 112/76 100 06/12/18 05:00 97 20 110/64 100 06/12/18 04:00 98.6 F 92 21 113/70 100 06/12/18 03:24 18 97 06/12/18 03:00 99 19 136/93 97 06/12/18 02:00 105 19 109/69 100 06/12/18 01:37 22 129/84 100 06/12/18 01:00 112 21 108/67 100 06/12/18 00:00 98.9 F 111 25 122/74 100 Intake and Output 06/11/18 06/11/18 06/12/18 15:59 23:59 07:59 Intake Total 650 / 650 2410 / 2410 802.5 / 802.5 Output Total 2730 / 2730 3260 / 3260 1810 / 1810 Balance -2080 / -2080 -850 / -850 -1007.5 / -1007.5 Intake: IV Fluids 650 / 650 2410 / 2410 802.5 / 802.5 PRECEDEX Premix 400 mcg In 100 200 / 200 100 / 100 100 / 100 ml @ 0.2 MCG/KG/HR 5.48 mls/hr IVC .[id number] [facility] Rx#:[id number] FentaNYL (PF) 1,000 MCG In 0.9 100 / 100 100 / 100 % Sodium Chloride 80 ML @ 50 MCG/HR 5 mls/hr IVC CONT [facility] Rx #:[id number] HumuLIN R 250 UNIT In 0.9 % 100 / 100 252.5 / 252.5 Sodium Chloride 250 ML @ Titrate IVC CONT [facility] Rx#: [id number] Clinimix E 5%-15% SOLUTION 2, 2210 / 2210 000 ML Travasol 10% 200 ML @ 91 .6 mls/hr IVC .Q24H [place] with M. v.i. Adult 10 ml Rx#:[id number] Diprivan 1,000 mg In 100 ml @ 50 / 50 15 MCG/KG/MIN 10.233 mls/hr IVC .[id number] [facility] Rx#:[id number] Intralipid 20% 250 ML @ 21 mls/ 250 / 250 hr IVPB [id number] [facility] Rx#: [id number] Diflucan Premix 200 MG/100 ML 100 / 100 200 mg In 100 ml @ 100 mls/hr IVPB DAILY [facility] Rx#:[id number] Zosyn 3.375 GM In 0.9 % Sodium 100 / 100 100 / 100 100 / 100 Chloride (Mini-Bag +) 100 ML @ 25 mls/hr IVPB Q8HR [facility] Rx#: [id number] Output: Gastric Tube Lavage Amount 150 / 150 Right Nare 150 / 150 Catheter 2600 / 2600 3200 / 3200 1400 / 1400 Wound Drainage 130 / 130 60 / 60 260 / 260 Left Abdomen 0 / 0 0 / 0 0 / 0 Right Abdomen 130 / 130 60 / 60 260 / 260 Other: Blood Glucose* 144 166 153 - Labs 06/12/18 03:20 06/12/18 03:20 Diabetes panel 06/11/18 06/11/18 06/12/18 Range/Units 09:00 21:10 03:20 Sodium 142 140 (136-145) mEq/L Potassium 4.1 4.2 (3.5-5.1) mEq/L Chloride 108 H 108 H (98-107) mEq/L Carbon Dioxide 25 23 (23-29) mEq/L BUN 38 H 36 H (6-20) mg/dL Creatinine 1.01 0.98 (0.70-1.30) mg/dL Glucose 152 H 155 H (70-105) mg/dL Calcium 9.4 9.3 (8.6-10.3) mg/dL AST 18 22 (13-39) Units/L ALT 15 19 (7-52) Units/L Alkaline Phosphatase 70 77 (34-104) Units/L Albumin 2.7 L 2.7 L (3.5-5.7) g/dL Calcium panel 06/11/18 06/11/18 06/12/18 Range/Units 09: 21: 03:20 Calcium 9.4 9.3 (8.6-10.3) mg/dL Phosphorus (2.7-4.5) mg/dL Albumin 2.7 L 2.7 L (3.5-5.7) g/dL 06/12/18 Range/Units 03:20 Calcium (8.6-10.3) mg/dL Phosphorus 4.1 (2.7-4.5) mg/dL Albumin (3.5-5.7) g/dL Pituitary panel 06/11/18 06/12/18 Range/Units 21: 03:20 Sodium 142 140 (136-145) mEq/L Potassium 4.1 4.2 (3.5-5.1) mEq/L Chloride 108 H 108 H (98-107) mEq/L Carbon Dioxide 25 23 (23-29) mEq/L BUN 38 H 36 H (6-20) mg/dL Creatinine 1.01 0.98 (0.70-1.30) mg/dL Glucose 152 H 155 H (70-105) mg/dL Calcium 9.4 9.3 (8.6-10.3) mg/dL Adrenal panel 06/11/18 06/11/18 06/12/18 Range/Units 09:00 21:10 03:20 Sodium 142 140 (136-145) mEq/L Potassium 4.1 4.2 (3.5-5.1) mEq/L Chloride 108 H 108 H (98-107) mEq/L Carbon Dioxide 25 23 (23-29) mEq/L BUN 38 H 36 H (6-20) mg/dL Creatinine 1.01 0.98 (0.70-1.30) mg/dL Glucose 152 H 155 H (70-105) mg/dL Calcium 9.4 9.3 (8.6-10.3) mg/dL Total Bilirubin 0.5 0.5 (0.3-1.0) mg/dL AST 18 22 (13-39) Units/L ALT 15 19 (7-52) Units/L Alkaline Phosphatase 70 77 (34-104) Units/L Albumin 2.7 L 2.7 L (3.5-5.7) g/dL - VTE Documentation of Mechanical Device: Intermittent pneumatic compression device Consult Discharge Plan - Plan Referrals: Zafar Hinton MD [Primary Care Provider] - <Pablo Hernandez - Last Filed: 06/13/18 08:27> Date of Encounter: 06/12/18 Objective Vital Signs - Last 8 Hours Temp Pulse Resp BP Pulse Ox 06/13/18 08:07 98.3 F 06/13/18 07:00 93 18 124/70 93 06/13/18 06:29 12 102/78 100 06/13/18 06:00 86 18 102/78 99 06/13/18 05:19 98.8 F 83 18 111/70 99 06/13/18 05:04 83 18 111/70 99 06/13/18 04:00 78 18 111/64 99 06/13/18 03:59 22 147/98 100 06/13/18 03:54 98.8 F 06/13/18 03:00 84 22 140/85 100 06/13/18 01:59 94 19 101/62 100 06/13/18 01:14 18 97/58 100 06/13/18 01:00 74 18 97/58 100 Intake and Output 06/12/18 06/13/18 06/13/18 23:59 07:59 15:59 Intake Total 446.1 / 446.1 435.9 / 435.9 Output Total 1745 / 1745 550 / 550 400 / 400 Balance -1298.9 / -1298.9 -114.1 / -114.1 -400 / -400 Intake: IV Fluids 446.1 / 446.1 435.9 / 435.9 PRECEDEX Premix 400 mcg In 100 200 / 200 200 / 200 ml @ 0.2 MCG/KG/HR 5.48 mls/hr IVC .[id number] [facility] Rx#:[id number] FentaNYL (PF) 1,000 MCG In 0.9 100 / 100 100 / 100 % Sodium Chloride 80 ML @ 50 MCG/HR 5 mls/hr IVC CONT [place] Rx #:[id number] HumuLIN R 250 UNIT In 0.9 % 46.1 / 46.1 35.9 / 35.9 Sodium Chloride 250 ML @ Titrate IVC CONT [place] Rx#: [id number] Zosyn 3.375 GM In 0.9 % Sodium 100 / 100 100 / 100 Chloride (Mini-Bag +) 100 ML @ 25 mls/hr IVPB Q8HR [place] Rx#: [id number] Oral 0 / 0 Output: Catheter 1350 / 1350 400 / 400 400 / 400 Gastric Drainage 250 / 250 Wound Drainage 145 / 145 150 / 150 Left Abdomen 0 / 0 0 / 0 Right Abdomen 80 / 80 65 / 65 Right Upper Abdomen 65 / 65 85 / 85 Other: Weight 102.5 kg Blood Glucose* 138 163 - Labs 06/13/18 05:00 06/13/18 05:00 Diabetes panel 06/13/18 Range/Units 05:00 Sodium 142 (136-145) mEq/L Potassium 3.8 (3.5-5.1) mEq/L Chloride 110 H (98-107) mEq/L Carbon Dioxide 25 (23-29) mEq/L BUN 35 H (6-20) mg/dL Creatinine 0.81 (0.70-1.30) mg/dL Glucose 145 H (70-105) mg/dL Calcium 9.4 (8.6-10.3) mg/dL Calcium panel 06/13/18 Range/Units 05:00 Calcium 9.4 (8.6-10.3) mg/dL Phosphorus 3.6 (2.7-4.5) mg/dL Pituitary panel 06/13/18 Range/Units 05:00 Sodium 142 (136-145) mEq/L Potassium 3.8 (3.5-5.1) mEq/L Chloride 110 H (98-107) mEq/L Carbon Dioxide 25 (23-29) mEq/L BUN 35 H (6-20) mg/dL Creatinine 0.81 (0.70-1.30) mg/dL Glucose 145 H (70-105) mg/dL Calcium 9.4 (8.6-10.3) mg/dL Adrenal panel 06/13/18 Range/Units 05:00 Sodium 142 (136-145) mEq/L Potassium 3.8 (3.5-5.1) mEq/L Chloride 110 H (98-107) mEq/L Carbon Dioxide 25 (23-29) mEq/L BUN 35 H (6-20) mg/dL Creatinine 0.81 (0.70-1.30) mg/dL Glucose 145 H (70-105) mg/dL Calcium 9.4 (8.6-10.3) mg/dL - Attending Attestation I have personally performed a face to face evaluation on this patient. I have reviewed and agree with the care plan. History and Exam by me shows: The patient is seen and evaluated on morning rounds. He continues to struggle coming off the ventilator. His bilious drainage from the duodenal stump closure continues to be fairly high volume. This should resolve once peristaltic activity resumes in the GI tract.
[2018-06-12] MEDS: Chlorhexidine Rinse 15 ML MOUTHWASH MM SCH ×2 (09:04→20:28)
[2018-06-12] MEDS: Piperacillin/Tazobactam 3.375 GM in 0.9 % Sodium Chloride Mini Bag 100 ML IVPB SCH ×3 (09:04→23:01)
[2018-06-12] MEDS: Furosemide 40 MG/4 ML VIAL IVP SCH (09:06)
[2018-06-12] MEDS: Fluconazole 200 MG/100 ML 200 MG/100 ML BAG IVPB SCH (09:06)
--- NOTE | 2018-06-12 10:36 | Infectious Disease Progress No ---
Date of Encounter: 06/12/18 Time of Encounter: 10:34 - Assessment and Plan (1) Severe sepsis Current Visit: Yes Status: Acute The patient had 3 sepsis criteria on admission. Likely secondary to bacteremia and intra-abdominal abscess and new intra- abdominal phlegmon. Blood cultures obtained 06/02/18 her +1 out of 2 sets for Escherichia coli. Repeat blood cultures drawn 06/04/18 are negative 2 sets. Repeat blood cultures drawn 06/06/18 are negative x 2 sets. CXR completed this morning negative. Repeat blood cultures 2 sets drawn 06/11/18 are pending. Repeat sputum culture no growth. CT abdomen and pelvis shows phlegmon in the RUQ. Planning for CT-guided drain placement later today. Please send specimen for culture (aerobic and anaerobic). CT chest shows likely atelectasis. Also, we may need to consider adding Dapto if no improvement in the patient's clinical status due to his history of VRE. However, this will not cover the lungs in the event that he is developing PNA that is not manifested on imaging at this point. (2) Bacteremia due to Gram-negative bacteria Current Visit: Yes Status: Acute Causative organism: Escherichia coli per PCR. Source likely intra-abdominal abscess. Blood cultures obtained 06/02/18 are +1 out of 2 sets for Escherichia coli. Repeat blood cultures 06/04/18 are negative 2 sets. Repeat blood cultures 06/06/18 are negative x 2 sets. Repeat blood cultures 2 sets now. Continue Zosyn 3.375 g IV every 8 hours. Duration of treatment depends on the clinical picture. Monitor renal function and a productive toxicity and dose adjust antibiotics. (3) Intra-abdominal abscess Current Visit: No Status: Acute Likely secondary to perforated viscus. Causative organism E. coli. POD #10 Status post exploratory laparotomy, drainage of intra-abdominal abscess 06/02/[address] Maria. Operative note was reviewed. Gross purulence noted and dropped, but no succus, bile, or staining was seen in the abdominal cavity. CT of the abdomen and pelvis 06/11/18 showed findings consistent with phlegmon in the RUQ. Planning fo CT-guided drain placement later today. Will ask that they send specimen for culture. Discussed with nursing and orders are in the system. Continue Zosyn 3.375 g IV every 8 hours for now. Continue fluconazole 200mg IV daily. Dose-adjust antibiotics based on creatinine clearance. Duration of treatment depends on the clinical picture. Wound care and activity restrictions per the surgery team. (4) Perforated abdominal viscus Current Visit: No Status: Acute Initially was thought to likely be secondary to NSAID use. Concern that this perforation may be secondary to the patch they placed previously was laying under pocket of pus which kept irritating it and cause perforation again. POD #7 status post exp lap with antrectomy, closure of duodenal stump, and Gerri en Y. No evidence of perforation noted on most recent imaging. Continue Zosyn as stated above. Continue fluconazole 200 mg IV daily. Duration of treatment depends on the clinical picture. Monitor renal and liver function and dose-adjust antibiotics. (5) Acute on chronic renal failure Current Visit: Yes Status: Resolved Likely secondary to severe sepsis. Improved. Continue to trend. Dose adjust antibiotics based on creatinine clearance. Avoid nephrotoxins as able. Qualifiers: Acute renal failure type: unspecified Chronic kidney disease stage: unspecified stage Qualified Code(s): N17.9 - Acute kidney failure, unspecified ; N18.9 - Chronic kidney disease, unspecified (6) Pneumoperitoneum Current Visit: Yes Status: Acute Secondary to perforated viscus. Further management per the general surgery team. (7) Allergy to multiple antibiotics Current Visit: Yes Status: Acute (8) VRE (vancomycin-resistant Enterococci) Current Visit: No Status: Inactive Patient has a history of VRE in the urine. Continue contact precautions per hospital protocol. (9) Venous thromboembolism Current Visit: Yes Status: Acute DVT study showed a chronic venous thrombosis in the right lesser saphenous vein. Anticoagulation per the primary team. (10) Encephalopathy Current Visit: Yes Status: Acute Etiology unclear. Patient minimally responsive on very little sedation. MRI of the brain negative. EEG showed slowing consistent with toxic metabolic encephalopathy. - Subjective Interval history: Patient seen and examined with nursing at bedside. Continue to have intermittent fevers and developed tachycardia with CPAP this morning. Blood pressure was improved. CT abdomen and pelvis shows RUQ phlegmon. Scheduled for drain placement later today per IR. Status post exp lap with antrectomy, closure of duodenal stump, and gerri en Y reconstruction 06/05/18 . Patient currently intubated and sedated on the ventilator. More arousable today and follows some commands. Infect Dis PN-Objective Data - Labs CBC & Chem 7: 06/13/18 05:00 06/13/18 05:00 Labs: Laboratory Results - last 24 hr 06/11/18 06/11/18 06/11/18 01:16 02:11 03:06 WBC RBC Hgb Hct MCV MCH MCHC RDW Plt Count MPV Immature Gran % Seg Neutrophils % Lymphocytes % Monocytes % Eosinophils % Basophils % Neutrophils # Lymphocytes # Monocytes # Eosinophils # Basophils # Nucleated RBCs/100 WBC Sodium Potassium Chloride Carbon Dioxide BUN Creatinine Est GFR ( Amer) Est GFR (Non-Af Amer) BUN/Creatinine Ratio Glucose POC Glucose 150 H 145 H 144 H Calculated Osmolality Lactic Acid Calcium Phosphorus Magnesium Total Bilirubin Direct Bilirubin Indirect Bilirubin AST ALT Alkaline Phosphatase Serum Total Protein Albumin Globulin Albumin/Globulin Ratio 06/11/18 06/11/18 06/11/18 04:27 05:04 06:13 WBC RBC Hgb Hct MCV MCH MCHC RDW Plt Count MPV Immature Gran % Seg Neutrophils % Lymphocytes % Monocytes % Eosinophils % Basophils % Neutrophils # Lymphocytes # Monocytes # Eosinophils # Basophils # Nucleated RBCs/100 WBC Sodium Potassium Chloride Carbon Dioxide BUN Creatinine Est GFR ( Amer) Est GFR (Non-Af Amer) BUN/Creatinine Ratio Glucose POC Glucose 155 H 160 H 152 H Calculated Osmolality Lactic Acid Calcium Phosphorus Magnesium Total Bilirubin Direct Bilirubin Indirect Bilirubin AST ALT Alkaline Phosphatase Serum Total Protein Albumin Globulin Albumin/Globulin Ratio 06/11/18 06/11/18 06/11/18 06:53 08:58 10:02 WBC RBC Hgb Hct MCV MCH MCHC RDW Plt Count MPV Immature Gran % Seg Neutrophils % Lymphocytes % Monocytes % Eosinophils % Basophils % Neutrophils # Lymphocytes # Monocytes # Eosinophils # Basophils # Nucleated RBCs/100 WBC Sodium Potassium Chloride Carbon Dioxide BUN Creatinine Est GFR ( Amer) Est GFR (Non-Af Amer) BUN/Creatinine Ratio Glucose POC Glucose 138 H 146 H 168 H Calculated Osmolality Lactic Acid Calcium Phosphorus Magnesium Total Bilirubin Direct Bilirubin Indirect Bilirubin AST ALT Alkaline Phosphatase Serum Total Protein Albumin Globulin Albumin/Globulin Ratio 06/11/18 06/11/18 06/11/18 12:10 14:16 16:43 WBC RBC Hgb Hct MCV MCH MCHC RDW Plt Count MPV Immature Gran % Seg Neutrophils % Lymphocytes % Monocytes % Eosinophils % Basophils % Neutrophils # Lymphocytes # Monocytes # Eosinophils # Basophils # Nucleated RBCs/100 WBC Sodium Potassium Chloride Carbon Dioxide BUN Creatinine Est GFR ( Amer) Est GFR (Non-Af Amer) BUN/Creatinine Ratio Glucose POC Glucose 143 H 144 H 169 H Calculated Osmolality Lactic Acid Calcium Phosphorus Magnesium Total Bilirubin Direct Bilirubin Indirect Bilirubin AST ALT Alkaline Phosphatase Serum Total Protein Albumin Globulin Albumin/Globulin Ratio 06/11/18 06/11/18 06/11/18 19:05 20:03 21:10 WBC RBC Hgb Hct MCV MCH MCHC RDW Plt Count MPV Immature Gran % Seg Neutrophils % Lymphocytes % Monocytes % Eosinophils % Basophils % Neutrophils # Lymphocytes # Monocytes # Eosinophils # Basophils # Nucleated RBCs/100 WBC Sodium 142 Potassium 4.1 Chloride 108 H Carbon Dioxide 25 BUN 38 H Creatinine 1.01 Est GFR ( Amer) > 60 Est GFR (Non-Af Amer) > 60 BUN/Creatinine Ratio 38 H Glucose 152 H POC Glucose 150 H 145 H Calculated Osmolality 306 H Lactic Acid Calcium 9.4 Phosphorus Magnesium Total Bilirubin Direct Bilirubin Indirect Bilirubin AST ALT Alkaline Phosphatase Serum Total Protein Albumin Globulin Albumin/Globulin Ratio 06/11/18 06/11/18 06/11/18 21:10 21:10 22:21 WBC RBC Hgb Hct MCV MCH MCHC RDW Plt Count MPV Immature Gran % Seg Neutrophils % Lymphocytes % Monocytes % Eosinophils % Basophils % Neutrophils # Lymphocytes # Monocytes # Eosinophils # Basophils # Nucleated RBCs/100 WBC Sodium Potassium Chloride Carbon Dioxide BUN Creatinine Est GFR ( Amer) Est GFR (Non-Af Amer) BUN/Creatinine Ratio Glucose POC Glucose 143 H 152 H Calculated Osmolality Lactic Acid 1.1 Calcium Phosphorus Magnesium Total Bilirubin Direct Bilirubin Indirect Bilirubin AST ALT Alkaline Phosphatase Serum Total Protein Albumin Globulin Albumin/Globulin Ratio 06/11/18 06/11/18 06/12/18 23:06 23:48 03:20 WBC 10.1 RBC 2.67 L Hgb 7.5 L Hct 23.7 L MCV 88.8 MCH 28.1 MCHC 31.6 RDW 16.6 H Plt Count 211 MPV 9.9 Immature Gran % 4.6 H Seg Neutrophils % 77.2 Lymphocytes % 11.3 Monocytes % 6.0 Eosinophils % 0.6 Basophils % 0.3 Neutrophils # 7.8 Lymphocytes # 1.1 Monocytes # 0.6 Eosinophils # 0.1 Basophils # 0.0 Nucleated RBCs/100 WBC 0.4 H Sodium Potassium Chloride Carbon Dioxide BUN Creatinine Est GFR ( Amer) Est GFR (Non-Af Amer) BUN/Creatinine Ratio Glucose POC Glucose 166 H 154 H Calculated Osmolality Lactic Acid Calcium Phosphorus Magnesium Total Bilirubin Direct Bilirubin Indirect Bilirubin AST ALT Alkaline Phosphatase Serum Total Protein Albumin Globulin Albumin/Globulin Ratio 06/12/18 06/12/18 03:20 03:20 WBC RBC Hgb Hct MCV MCH MCHC RDW Plt Count MPV Immature Gran % Seg Neutrophils % Lymphocytes % Monocytes % Eosinophils % Basophils % Neutrophils # Lymphocytes # Monocytes # Eosinophils # Basophils # Nucleated RBCs/100 WBC Sodium 140 Potassium 4.2 Chloride 108 H Carbon Dioxide 23 BUN 36 H Creatinine 0.98 Est GFR ( Amer) > 60 Est GFR (Non-Af Amer) > 60 BUN/Creatinine Ratio 37 H Glucose 155 H POC Glucose Calculated Osmolality 301 H Lactic Acid Calcium 9.3 Phosphorus 4.1 Magnesium 1.7 Total Bilirubin 0.5 Direct Bilirubin 0.3 H Indirect Bilirubin 0.2 AST 22 ALT 19 Alkaline Phosphatase 77 Serum Total Protein 5.6 L Albumin 2.7 L Globulin 2.9 Albumin/Globulin Ratio 0.9 L Cultures: Cultures 06/11/18 15:00 Sputum Culture - Preliminary Aspirate 06/11/18 09:34 Blood Culture - Preliminary Peripheral Venipuncture Culture is incubating and being continuously monitored for growth. Final report to follow. 06/11/18 09:30 Blood Culture - Preliminary Peripheral Venipuncture Culture is incubating and being continuously monitored for growth. Final report to follow. 06/06/18 03:35 Blood Culture - Final Peripheral Venipuncture No growth. Final report. 06/06/18 01:42 Blood Culture - Final Peripheral Venipuncture No growth. Final report. 06/04/18 09:10 Blood Culture - Final Peripheral Venipuncture No growth. Final report. 06/04/18 09:12 Blood Culture - Final Peripheral Venipuncture No growth. Final report. 06/02/18 20:12 Anaerobic Culture - Final Peritoneal Fluid No anaerobes were recovered. 06/06/18 09:20 Urine Culture - Final Urine,[place] No growth. 06/07/18 03:48 Sputum Culture - Final Sputum 06/02/18 20:12 Body Fluid Culture - Final Peritoneal Fluid Escherichia coli - Impressions Impressions KUB X-Ray 06/11/18 14:38 IMPRESSION: The NG tube has been advanced. Its side port is at the GE junction and tip is in the fundus. Further advancemrnt should be considered D/ / Naman Chanel MD / Naman Chanel MD Interpreting Provider: Naman Chanel MD Abdomen/Pelvis CT 06/11/18 17:45 IMPRESSION: 1. Areas of wedge-shaped consolidation in the lower lung guerra are identified. These could represent areas of atelectasis or infection. Infarction not excluded; however, that would not be well evaluated absent intravenous contrast. 2. 39 x 54 x 46 mm area of phlegmon in the right upper quadrant of the abdomen just inferior to the area of the right lateral catheter tip. Perforated gastric ulcer was suggested previously, and there has been interval removal of the regional gastrointestinal tract. 3. Uncomplicated diverticulosis. The findings were sent to the Radiology Results Communication Center at 7:31 pm on 06/11/2018to be communicated to a licensed caregiver. D/ / Rocky Peraza / Rocky Peraza Interpreting Provider: Rocky Peraza Chest CT 06/11/18 17:45 IMPRESSION: 1. Areas of wedge-shaped consolidation in the lower lung guerra are identified. These could represent areas of atelectasis or infection. Infarction not excluded; however, that would not be well evaluated absent intravenous contrast. 2. 39 x 54 x 46 mm area of phlegmon in the right upper quadrant of the abdomen just inferior to the area of the right lateral catheter tip. Perforated gastric ulcer was suggested previously, and there has been interval removal of the regional gastrointestinal tract. 3. Uncomplicated diverticulosis. The findings were sent to the Radiology Results Communication Center at 7:31 pm on 06/11/2018to be communicated to a licensed caregiver. D/ / Rocky Peraza / Rocky Peraza Interpreting Provider: Rocky Peraza Exam - Constitutional Vitals: Temp Pulse Resp BP Pulse Ox 99.7 F H 118 25 144/88 96 06/12/18 07:00 06/12/18 10:00 06/12/18 10:00 06/12/18 10:00 06/12/18 10:00 General appearance: cooperative, no acute distress, obese - Head Head exam: Present: atraumatic, normal inspection, normocephalic - Eye Eye exam: Present: normal appearance, PERRL Pupils: Present: normal accommodation - ENT ENT exam: Present: mucous membranes moist - Neck Neck exam: Present: normal inspection - Respiratory Respiratory exam: Present: rales (Bilateral bases). Absent: respiratory distress, rhonchi, wheezes - Cardiovascular Cardiovascular exam: Present: +S1, +S2, tachycardia. Absent: irregular rhythm - GI/Abdominal GI/Abdominal exam: Present: distended (obese), hypoactive bowel sounds, soft. Absent: tenderness Additional comments: Midline abdominal dressing C/D/I. SARBJIT drain noted to the left abdomen with small amount of serosanguinous drainage noted. SARBJIT drain noted to the right abdomen with small amount of bilious contents noted. OG tube with small amount of dark green gastric contents noted. [place] catheter noted to be draining clear yellow urine. - Extremities Exam Extremities exam: Present: pedal edema (2+ BLE). Absent: joint swelling, tenderness - Neurological Exam Neurological exam: Present: altered (Sedated, opens eyes to verbal stimuli and follows some commands.) - Skin Skin exam: Present: dry, intact, normal color, warm - VTE Documentation of Mechanical Device: Intermittent pneumatic compression device Consult Discharge Plan - Plan Referrals: Zafar Hinton MD [Primary Care Provider] - - Attending Attestation I examined this patient and my medical decision-making was reviewed with the Resident Physician. I agree with the documented findings, disposition and treatment plan as described except to the extent set forth below.
--- NOTE | 2018-06-12 12:32 | IR Procedure Note ---
Date of procedure: 06/12/18 Consent Obtained: Verbal consent Timeout: Correct patient and procedure verified, Correct site verified, Time out performed, Skin prep completed Local anesthetic: Lidocaine 1% Indications: Right abdominal abscess Procedure Performed: Drain placement Was there an assistant scientist present: No Site/Technique: Accessed with 18g needle. 10 fr drain placed into collection. Results/Findings: Aspirated 10ml of foul smelling purulent brown colored fluid. Estimated blood loss (cc): 1 Complications: None; Tolerated procedure well Post Procedure Treatment Plan: Monitoring in the ICU, continue with ICU protocol vitals. Specimen: to lab
[2018-06-12] MEDS ORDERED: Clinimix E 5%-15% SOLUTION 2,000 ML, Parenteral Amino Acid 10% 200 ML with MVI, adult ... IVC SCH (17:00)
[2018-06-13] MEDS: FentaNYL (PF) 1,000 MCG in 0.9 % Sodium Chloride 80 ML IVC SCH ×3 (01:04→14:15)
[2018-06-13] MEDS: Dexmedetomidine HCl 400 MCG/100 ML MLS IVC SCH ×7 (01:24→23:51)
[2018-06-13 04:55] LABS: ABG Base Excess 3 mEq/L (-2 to 3); ABG HCO3 27 mEq/L (21-27); ABG Oxygen Saturation 97 % (95-98); ABG PCO2 42 mmHg (35-45); ABG PH 7.42 pH Units (7.32-7.45); ABG PO2 86 mmHg (85-104); ABG TCO2 29 mEq/L (20-26); Blood Gas Modality PRVC; Blood Gas PEEP 5 cm H2O; Blood Gas Respiration Rate 18; Blood Gas VT 500 cc
[2018-06-13] MEDS: Pantoprazole 40 MG VIAL IVP SCH ×2 (05:13→16:53)
[2018-06-13] MEDS: Artificial Tears SOLN 15 ML BOTTLE BOTH EYES SCH ×6 (05:14→23:50)
[2018-06-13] MEDS: *HR* Heparin 5,000 UNIT/ML VIAL SQ SCH ×3 (05:14→20:10)
[2018-06-13 05:37] LABS: BUN/Creatinine Ratio 43 (6-26); Blood Urea Nitrogen 35 mg/dL (6-20); Calcium 9.4 mg/dL (8.6-10.3); Carbon Dioxide 25 mEq/L (23-29); Chloride 110 mEq/L (98-107); Glucose 145 mg/dL (70-105); Magnesium 1.8 mg/dL (1.6-2.6); Osmolality,Calculated 305 (280-300); Phosphorous 3.6 mg/dL (2.7-4.5); Potassium 3.8 mEq/L (3.5-5.1); Sodium 142 mEq/L (136-145); eGFR For Non-African Americans > 60 (> 60)
[2018-06-13 05:39] LABS: Basophils % 0.2 %; Eosinophils # 0.1 K/mcL (0.0-0.6); Eosinophils % 1.5 %; Hematocrit 23.2 % (37.5-50.1); Hemoglobin 7.2 g/dL (12.9-16.9); Lymphocytes # 0.9 K/mcL (0.6-4.6); Lymphocytes % 11.7 %; Mean Corpuscular Hemoglobin 28.2 pg (28.0-33.3); Mean Platelet Volume 10.2 fL (9.4-12.4); Monocytes # 0.4 K/mcL (0.0-1.3); Monocytes % 4.6 %; Neutrophils # 6.2 K/mcL (1.6-8.9); Nucleated Red Blood Cells 0.2 /100 WBC (0); Platelet Count 248 K/mcL (140-400); Red Blood Count 2.55 M/mcL (4.19-5.50); Red Cell Distribution Width 16.2 % (11.5-14.5)
--- NOTE | 2018-06-13 07:55 | General Surgery Progress Note ---
<Pedro Ocasio R - Last Filed: 06/13/18 08:13> Date of Encounter: 06/13/18 Time of Encounter: 07:29 - Assessment and Plan (1) Perforated abdominal viscus Current Visit: No Status: Acute POD #8 s/p exploratory laparotomy, antrectomy, gerri en Y reconstruction with Drs. Serrano and Mary on 06/05/2018 Sedation weaned, remains intubated with CCU trialing cpap this am Patient is more alert and follows commands Tachycardia has resolved since IR drainage Plan: CCU care and medical management Continue to wean from vent Continue TPN Replete Potassium and magnesium today PPI/ dvt prophylaxis Comfort care and pain management Wound care daily Monitor drain and NG output (2) Diabetes Current Visit: Yes Status: Chronic Continue poc measurements and insulin as needed for glycemic control Qualifiers: Diabetes mellitus type: type 2 Diabetes mellitus sub master insulin use: without [place] [facility] use Diabetes mellitus complication status: with hyperglycemia Qualified Code(s): E11.65 - Type 2 diabetes mellitus with hyperglycemia (3) Acute on chronic renal failure Current Visit: Yes Status: Resolved Resolved, Ucr 0.81 today Replete potassium and magnesium Qualifiers: Acute renal failure type: unspecified Chronic kidney disease stage: unspecified stage Qualified Code(s): N17.9 - Acute kidney failure, unspecified ; N18.9 - Chronic kidney disease, unspecified (4) Bacteremia due to Gram-negative bacteria Current Visit: Yes Status: Acute Initial blood cultures positive for ecoli 06/11 sputum culture prelim with gram negative edu 06/11 blood cultures pending 06/12 intra-abdominal abscess cultures pending, with gram stain positive for gram negative edu On Zosyn and fluconazole Infectious diseases is following, treatment per their recommendations. (5) Anemia Current Visit: Yes Status: Acute Hemoglobin 7.2 this am Has been stable near this level since transfusion on 06/07 Continue to monitor anemia and transfuse as necessary Qualifiers: Anemia type: other cause Other causes of anemia: other cause, not classified Qualified Code(s): D64.89 - Other specified anemias Subjective Patient reports: fever (Tmax 100.8 overnight) Narrative: Patient remains intubated. Is opening eyes to verbal and physical stimuli. Objective Vital Signs - Last 8 Hours Temp Pulse Resp BP Pulse Ox 06/13/18 06:29 12 102/78 100 06/13/18 06:00 86 18 102/78 99 06/13/18 05:19 98.8 F 83 18 111/70 99 06/13/18 05:04 83 18 111/70 99 06/13/18 04:00 78 18 111/64 99 06/13/18 03:59 22 147/98 100 06/13/18 03:54 98.8 F 06/13/18 03:00 84 22 140/85 100 06/13/18 01:59 94 19 101/62 100 06/13/18 01:14 18 97/58 100 06/13/18 01:00 74 18 97/58 100 06/13/18 00:00 80 18 96/62 100 06/12/18 23:57 18 97/60 100 Intake and Output 06/12/18 06/12/18 06/13/18 15:59 23:59 07:59 Intake Total 458 / 458 446.1 / 446.1 435.9 / 435.9 Output Total 1375 / 1375 1745 / 1745 550 / 550 Balance -917 / -917 -1298.9 / -1298.9 -114.1 / -114.1 Intake: IV Fluids 458 / 458 446.1 / 446.1 435.9 / 435.9 PRECEDEX Premix 400 mcg In 100 100 / 100 200 / 200 200 / 200 ml @ 0.2 MCG/KG/HR 5.48 mls/hr IVC .[id number] [place] Rx#:[id number] FentaNYL (PF) 1,000 MCG In 0.9 100 / 100 100 / 100 100 / 100 % Sodium Chloride 80 ML @ 50 MCG/HR 5 mls/hr IVC CONT [place] Rx #:[id number] HumuLIN R 250 UNIT In 0.9 % 58 / 58 46.1 / 46.1 35.9 / 35.9 Sodium Chloride 250 ML @ Titrate IVC CONT [place] Rx#: [id number] Diflucan Premix 200 MG/100 ML 100 / 100 200 mg In 100 ml @ 100 mls/hr IVPB DAILY [place] Rx#:[id number] Zosyn 3.375 GM In 0.9 % Sodium 100 / 100 100 / 100 100 / 100 Chloride (Mini-Bag +) 100 ML @ 25 mls/hr IVPB Q8HR [place] Rx#: [id number] Oral 0 / 0 0 / 0 Output: Gastric Tube Lavage Amount 0 / 0 Right Nare 0 / 0 Catheter 1100 / 1100 1350 / 1350 400 / 400 Gastric Drainage 250 / 250 Wound Drainage 275 / 275 145 / 145 150 / 150 Left Abdomen 5 / 5 0 / 0 0 / 0 Right Abdomen 190 / 190 80 / 80 65 / 65 Right Upper Abdomen 80 / 80 65 / 65 85 / 85 Other: Weight 110.9 kg 102.5 kg Blood Glucose* 148 138 163 - General physical appearance no distress, chronically ill, obese, other (intubated, awake and alert) - Eyes PERRL - ENT normal mucosa, atraumatic, normocephalic - Neck Neck exam: trachea midline, no venous distension - Respiratory normal expansion, other (intubated on CPAP during exam) - Cardiovascular Cardiovascular exam: Present: RRR - Abdomen Abdomen: Present: bowel sounds present (infrequent), soft, wound. Absent: distended, rigid (SARBJIT right 120 mL bilious since in last 8 hrs. Abscess drain 150 mL bilious/purulent last 8 hrs. Left SARBJIT 10 mL serous last 8 hrs. ) - Incision Incision: Present: clean and dry (areas of incision packed ) - Integumentary no rash - Neurologic other (arousable to stimuli, will nod head and follow commands) - Psychiatric other (unable to assess at present) - Labs 06/13/18 05:00 06/13/18 05:00 Diabetes panel 06/13/18 Range/Units 05:00 Sodium 142 (136-145) mEq/L Potassium 3.8 (3.5-5.1) mEq/L Chloride 110 H (98-107) mEq/L Carbon Dioxide 25 (23-29) mEq/L BUN 35 H (6-20) mg/dL Creatinine 0.81 (0.70-1.30) mg/dL Glucose 145 H (70-105) mg/dL Calcium 9.4 (8.6-10.3) mg/dL Calcium panel 06/13/18 Range/Units 05:00 Calcium 9.4 (8.6-10.3) mg/dL Phosphorus 3.6 (2.7-4.5) mg/dL Pituitary panel 06/13/18 Range/Units 05:00 Sodium 142 (136-145) mEq/L Potassium 3.8 (3.5-5.1) mEq/L Chloride 110 H (98-107) mEq/L Carbon Dioxide 25 (23-29) mEq/L BUN 35 H (6-20) mg/dL Creatinine 0.81 (0.70-1.30) mg/dL Glucose 145 H (70-105) mg/dL Calcium 9.4 (8.6-10.3) mg/dL Adrenal panel 06/13/18 Range/Units 05:00 Sodium 142 (136-145) mEq/L Potassium 3.8 (3.5-5.1) mEq/L Chloride 110 H (98-107) mEq/L Carbon Dioxide 25 (23-29) mEq/L BUN 35 H (6-20) mg/dL Creatinine 0.81 (0.70-1.30) mg/dL Glucose 145 H (70-105) mg/dL Calcium 9.4 (8.6-10.3) mg/dL - VTE Documentation of Mechanical Device: Intermittent pneumatic compression device Consult Discharge Plan - Plan Referrals: Zafar Hinton MD [Primary Care Provider] - <Benedict Serrano - Last Filed: 06/13/18 14:24> Date of Encounter: 06/13/18 - Assessment and Plan (1) Peritonitis Current Visit: Yes Status: Acute Objective Vital Signs - Last 8 Hours Temp Pulse Resp BP Pulse Ox 06/13/18 13:19 21 100 06/13/18 13:00 99 18 104/65 100 06/13/18 12:00 99.1 F 99 18 104/65 100 06/13/18 11:17 23 100 06/13/18 11:00 116 21 115/66 100 06/13/18 10:00 142 28 122/77 93 06/13/18 09:21 26 100 06/13/18 09:00 126 23 129/90 100 06/13/18 08:15 15 100 06/13/18 08:07 98.3 F 06/13/18 08:00 101 20 177/122 100 06/13/18 07:00 108 16 183/91 93 06/13/18 06:29 12 102/78 100 Intake and Output 06/12/18 06/13/18 06/13/18 23:59 07:59 15:59 Intake Total 446.1 / 446.1 535.9 / 535.9 484.2 / 484.2 Output Total 1745 / 1745 550 / 550 2600 / 2600 Balance -1298.9 / -1298.9 -14.1 / -14.1 -2115.8 / -2115.8 Intake: IV Fluids 446.1 / 446.1 535.9 / 535.9 484.2 / 484.2 PRECEDEX Premix 400 mcg In 100 200 / 200 200 / 200 200 / 200 ml @ 0.2 MCG/KG/HR 5.48 mls/hr IVC .[id number] [place] Rx#:[id number] FentaNYL (PF) 1,000 MCG In 0.9 100 / 100 200 / 200 100 / 100 % Sodium Chloride 80 ML @ 50 MCG/HR 5 mls/hr IVC CONT [facility] Rx #:[id number] HumuLIN R 250 UNIT In 0.9 % 46.1 / 46.1 35.9 / 35.9 84.2 / 84.2 Sodium Chloride 250 ML @ Titrate IVC CONT [facility] Rx#: [id number] Diflucan Premix 200 MG/100 ML 100 / 100 200 mg In 100 ml @ 100 mls/hr IVPB DAILY [place] Rx#:[id number] Zosyn 3.375 GM In 0.9 % Sodium 100 / 100 100 / 100 Chloride (Mini-Bag +) 100 ML @ 25 mls/hr IVPB Q8HR [facility] Rx#: [id number] Oral 0 / 0 Output: Catheter 1350 / 1350 400 / 400 2600 / 2600 Gastric Drainage 250 / 250 Wound Drainage 145 / 145 150 / 150 Left Abdomen 0 / 0 0 / 0 Right Abdomen 80 / 80 65 / 65 Right Upper Abdomen 65 / 65 85 / 85 Other: Weight 102.5 kg Blood Glucose* 138 163 134 - Labs 06/13/18 05:00 06/13/18 05:00 Diabetes panel 06/13/18 Range/Units 05:00 Sodium 142 (136-145) mEq/L Potassium 3.8 (3.5-5.1) mEq/L Chloride 110 H (98-107) mEq/L Carbon Dioxide 25 (23-29) mEq/L BUN 35 H (6-20) mg/dL Creatinine 0.81 (0.70-1.30) mg/dL Glucose 145 H (70-105) mg/dL Calcium 9.4 (8.6-10.3) mg/dL Calcium panel 06/13/18 Range/Units 05:00 Calcium 9.4 (8.6-10.3) mg/dL Phosphorus 3.6 (2.7-4.5) mg/dL Pituitary panel 06/13/18 Range/Units 05:00 Sodium 142 (136-145) mEq/L Potassium 3.8 (3.5-5.1) mEq/L Chloride 110 H (98-107) mEq/L Carbon Dioxide 25 (23-29) mEq/L BUN 35 H (6-20) mg/dL Creatinine 0.81 (0.70-1.30) mg/dL Glucose 145 H (70-105) mg/dL Calcium 9.4 (8.6-10.3) mg/dL Adrenal panel 06/13/18 Range/Units 05:00 Sodium 142 (136-145) mEq/L Potassium 3.8 (3.5-5.1) mEq/L Chloride 110 H (98-107) mEq/L Carbon Dioxide 25 (23-29) mEq/L BUN 35 H (6-20) mg/dL Creatinine 0.81 (0.70-1.30) mg/dL Glucose 145 H (70-105) mg/dL Calcium 9.4 (8.6-10.3) mg/dL - Attending Attestation patient seen and examined. I have reviewed all notes, labs, and imaging. I agree with the above assessment and plan and wish to add the following... afebrile; more alert and responsive; duodenal stump leak controlled; neuro: hypoactive delirium; haldol on board; limit sedation as tolerated; cares per ICU cardiac; cont supportive care pulm: wean from vent as tolerated; on abx for possible PNA; GI: NPO, TPN, awaiting return of bowel function; cont with drains : cont banda catheter to monitor UOP; Cr wnl ID: appreciate ID [id number]; cont with zosyn, fluconazole; Heme: anemia - combination of acute blood loss anema and dilution; likely with low oxygen carrying capacity; recommend transfusing to at least above 8, ideally at least 9 FEN: TPN; strongly recommend replete lytes; cont to monitor fluid status in light of duodenal stump leak; cars per ICU end: cont ISS; glucose < 150 cont cares in the ICU
[2018-06-13] MEDS: Piperacillin/Tazobactam 3.375 GM in 0.9 % Sodium Chloride Mini Bag 100 ML IVPB SCH ×3 (08:46→23:49)
[2018-06-13] MEDS: Fluconazole 200 MG/100 ML 200 MG/100 ML BAG IVPB SCH (08:46)
[2018-06-13] MEDS: Furosemide 40 MG/4 ML VIAL IVP SCH (08:47)
[2018-06-13] MEDS: Chlorhexidine Rinse 15 ML MOUTHWASH MM SCH ×2 (08:47→19:40)
--- NOTE | 2018-06-13 11:52 | Infectious Disease Progress No ---
Date of Encounter: 06/13/18 Time of Encounter: 09:00 - Assessment and Plan (1) Severe sepsis Current Visit: Yes Status: Acute The patient had 3 sepsis criteria on admission. Likely secondary to bacteremia and intra-abdominal abscess and new intra- abdominal phlegmon. Blood cultures obtained 06/02/18 her +1 out of 2 sets for Escherichia coli. Repeat blood cultures drawn 06/04/18 are negative 2 sets. Repeat blood cultures drawn 06/06/18 are negative x 2 sets. Repeat blood cultures 2 sets drawn 06/11/18 are NGTD. Repeat sputum culture positive for GNR. CT abdomen and pelvis shows phlegmon in the RUQ. Status post CT-guided drain placement 06/12/18. CT chest shows likely atelectasis. Also, we may need to consider adding Dapto if no improvement in the patient's clinical status due to his history of VRE. However, this will not cover the lungs in the event that he is developing PNA that is not manifested on imaging at this point. (2) Bacteremia due to Gram-negative bacteria Current Visit: Yes Status: Acute Causative organism: Escherichia coli per PCR. Source likely intra-abdominal abscess. Blood cultures obtained 06/02/18 are +1 out of 2 sets for Escherichia coli. Repeat blood cultures 06/04/18 are negative 2 sets. Repeat blood cultures 06/06/18 are negative x 2 sets. Repeat blood cultures 2 sets drawn 06/11/18 are NGTD. Continue Zosyn 3.375 g IV every 8 hours. Duration of treatment depends on the clinical picture. Monitor renal function and a productive toxicity and dose adjust antibiotics. (3) Intra-abdominal abscess Current Visit: No Status: Acute Likely secondary to perforated viscus. Causative organism E. coli. POD #11 Status post exploratory laparotomy, drainage of intra-abdominal abscess 06/02/[address] Maria. Operative note was reviewed. Gross purulence noted and dropped, but no succus, bile, or staining was seen in the abdominal cavity. CT of the abdomen and pelvis 06/11/18 showed findings consistent with phlegmon in the RUQ. Status post CT-guided drain placement 06/12/18. Purulent drainage noted in the SARBJIT drain at this time. Cultures are positive for gram-negative rods with final ID and sensitivities to follow. Continue Zosyn 3.375 g IV every 8 hours for now. Continue fluconazole 200mg IV daily. Dose-adjust antibiotics based on creatinine clearance. Duration of treatment depends on the clinical picture. Wound care and activity restrictions per the surgery team. (4) Perforated abdominal viscus Current Visit: No Status: Acute Initially was thought to likely be secondary to NSAID use. Concern that this perforation may be secondary to the patch they placed previously was laying under pocket of pus which kept irritating it and cause perforation again. POD #8 status post exp lap with antrectomy, closure of duodenal stump, and Gerri en Y. No evidence of perforation noted on most recent imaging. Continue Zosyn as stated above. Continue fluconazole 200 mg IV daily. Duration of treatment depends on the clinical picture. Monitor renal and liver function and dose-adjust antibiotics. (5) Acute on chronic renal failure Current Visit: Yes Status: Resolved Likely secondary to severe sepsis. Improved. Continue to trend. Dose adjust antibiotics based on creatinine clearance. Avoid nephrotoxins as able. Qualifiers: Acute renal failure type: unspecified Chronic kidney disease stage: unspecified stage Qualified Code(s): N17.9 - Acute kidney failure, unspecified ; N18.9 - Chronic kidney disease, unspecified (6) Pneumoperitoneum Current Visit: Yes Status: Acute Secondary to perforated viscus. Further management per the general surgery team. (7) Allergy to multiple antibiotics Current Visit: Yes Status: Acute (8) VRE (vancomycin-resistant Enterococci) Current Visit: No Status: Inactive Patient has a history of VRE in the urine. Continue contact precautions per hospital protocol. (9) Venous thromboembolism Current Visit: Yes Status: Acute DVT study showed a chronic venous thrombosis in the right lesser saphenous vein. Anticoagulation per the primary team. (10) Encephalopathy Current Visit: Yes Status: Acute Etiology unclear. Improved. Patient wakes up and follows some commands. MRI of the brain negative. EEG showed slowing consistent with toxic metabolic encephalopathy. - Subjective Interval history: Patient seen and examined with nursing at bedside. Continue to have intermittent fevers and developed tachycardia and hypoxia with CPAP this morning. Status post CT-guided drain placement 06/12/18. Status post exp lap with antrectomy, closure of duodenal stump, and gerri en Y reconstruction 06/05/18 . Patient currently intubated and sedated on the ventilator. More arousable today and follows some commands. Infect Dis PN-Objective Data - Labs CBC & Chem 7: 06/13/18 05:00 06/13/18 05:00 Labs: Laboratory Results - last 24 hr 06/12/18 06/12/18 06/12/18 01:05 01:56 03:21 WBC RBC Hgb Hct MCV MCH MCHC RDW Plt Count MPV Immature Gran % Seg Neutrophils % Lymphocytes % Monocytes % Eosinophils % Basophils % Neutrophils # Lymphocytes # Monocytes # Eosinophils # Basophils # Nucleated RBCs/100 WBC Sample Site ABG pH ABG pCO2 ABG pO2 ABG HCO3 ABG Total CO2 ABG O2 Saturation ABG Base Excess Jaun Test Respiration Rate O2 Delivery Device Blood Gas Modality Inspired O2 Tidal Volume PEEP Sodium Potassium Chloride Carbon Dioxide BUN Creatinine Est GFR ( Amer) Est GFR (Non-Af Amer) BUN/Creatinine Ratio Glucose POC Glucose 164 H 138 H 137 H Calculated Osmolality Calcium Phosphorus Magnesium Troponin I 06/12/18 06/12/18 06/12/18 04:35 05:24 06:03 WBC RBC Hgb Hct MCV MCH MCHC RDW Plt Count MPV Immature Gran % Seg Neutrophils % Lymphocytes % Monocytes % Eosinophils % Basophils % Neutrophils # Lymphocytes # Monocytes # Eosinophils # Basophils # Nucleated RBCs/100 WBC Sample Site ABG pH ABG pCO2 ABG pO2 ABG HCO3 ABG Total CO2 ABG O2 Saturation ABG Base Excess Jaun Test Respiration Rate O2 Delivery Device Blood Gas Modality Inspired O2 Tidal Volume PEEP Sodium Potassium Chloride Carbon Dioxide BUN Creatinine Est GFR ( Amer) Est GFR (Non-Af Amer) BUN/Creatinine Ratio Glucose POC Glucose 165 H 165 H 153 H Calculated Osmolality Calcium Phosphorus Magnesium Troponin I 06/12/18 06/12/18 06/12/18 07:10 07:59 09:10 WBC RBC Hgb Hct MCV MCH MCHC RDW Plt Count MPV Immature Gran % Seg Neutrophils % Lymphocytes % Monocytes % Eosinophils % Basophils % Neutrophils # Lymphocytes # Monocytes # Eosinophils # Basophils # Nucleated RBCs/100 WBC Sample Site ABG pH ABG pCO2 ABG pO2 ABG HCO3 ABG Total CO2 ABG O2 Saturation ABG Base Excess Jaun Test Respiration Rate O2 Delivery Device Blood Gas Modality Inspired O2 Tidal Volume PEEP Sodium Potassium Chloride Carbon Dioxide BUN Creatinine Est GFR ( Amer) Est GFR (Non-Af Amer) BUN/Creatinine Ratio Glucose POC Glucose 148 H 142 H 153 H Calculated Osmolality Calcium Phosphorus Magnesium Troponin I 06/12/18 06/12/18 06/12/18 09:58 11:04 12:00 WBC RBC Hgb Hct MCV MCH MCHC RDW Plt Count MPV Immature Gran % Seg Neutrophils % Lymphocytes % Monocytes % Eosinophils % Basophils % Neutrophils # Lymphocytes # Monocytes # Eosinophils # Basophils # Nucleated RBCs/100 WBC Sample Site ABG pH ABG pCO2 ABG pO2 ABG HCO3 ABG Total CO2 ABG O2 Saturation ABG Base Excess Jaun Test Respiration Rate O2 Delivery Device Blood Gas Modality Inspired O2 Tidal Volume PEEP Sodium Potassium Chloride Carbon Dioxide BUN Creatinine Est GFR ( Amer) Est GFR (Non-Af Amer) BUN/Creatinine Ratio Glucose POC Glucose 142 H 152 H 138 H Calculated Osmolality Calcium Phosphorus Magnesium Troponin I 06/12/18 06/12/18 06/12/18 13:01 14:04 15:09 WBC RBC Hgb Hct MCV MCH MCHC RDW Plt Count MPV Immature Gran % Seg Neutrophils % Lymphocytes % Monocytes % Eosinophils % Basophils % Neutrophils # Lymphocytes # Monocytes # Eosinophils # Basophils # Nucleated RBCs/100 WBC Sample Site ABG pH ABG pCO2 ABG pO2 ABG HCO3 ABG Total CO2 ABG O2 Saturation ABG Base Excess Jaun Test Respiration Rate O2 Delivery Device Blood Gas Modality Inspired O2 Tidal Volume PEEP Sodium Potassium Chloride Carbon Dioxide BUN Creatinine Est GFR ( Amer) Est GFR (Non-Af Amer) BUN/Creatinine Ratio Glucose POC Glucose 126 H 153 H 148 H Calculated Osmolality Calcium Phosphorus Magnesium Troponin I 06/12/18 06/12/18 06/12/18 16:19 17:04 18:11 WBC RBC Hgb Hct MCV MCH MCHC RDW Plt Count MPV Immature Gran % Seg Neutrophils % Lymphocytes % Monocytes % Eosinophils % Basophils % Neutrophils # Lymphocytes # Monocytes # Eosinophils # Basophils # Nucleated RBCs/100 WBC Sample Site ABG pH ABG pCO2 ABG pO2 ABG HCO3 ABG Total CO2 ABG O2 Saturation ABG Base Excess Jaun Test Respiration Rate O2 Delivery Device Blood Gas Modality Inspired O2 Tidal Volume PEEP Sodium Potassium Chloride Carbon Dioxide BUN Creatinine Est GFR ( Amer) Est GFR (Non-Af Amer) BUN/Creatinine Ratio Glucose POC Glucose 136 H 129 H 137 H Calculated Osmolality Calcium Phosphorus Magnesium Troponin I 06/12/18 06/12/18 06/12/18 19:01 19:52 21:15 WBC RBC Hgb Hct MCV MCH MCHC RDW Plt Count MPV Immature Gran % Seg Neutrophils % Lymphocytes % Monocytes % Eosinophils % Basophils % Neutrophils # Lymphocytes # Monocytes # Eosinophils # Basophils # Nucleated RBCs/100 WBC Sample Site ABG pH ABG pCO2 ABG pO2 ABG HCO3 ABG Total CO2 ABG O2 Saturation ABG Base Excess Jaun Test Respiration Rate O2 Delivery Device Blood Gas Modality Inspired O2 Tidal Volume PEEP Sodium Potassium Chloride Carbon Dioxide BUN Creatinine Est GFR ( Amer) Est GFR (Non-Af Amer) BUN/Creatinine Ratio Glucose POC Glucose 149 H 138 H 146 H Calculated Osmolality Calcium Phosphorus Magnesium Troponin I 06/12/18 06/12/18 06/13/18 22:00 22:59 00:06 WBC RBC Hgb Hct MCV MCH MCHC RDW Plt Count MPV Immature Gran % Seg Neutrophils % Lymphocytes % Monocytes % Eosinophils % Basophils % Neutrophils # Lymphocytes # Monocytes # Eosinophils # Basophils # Nucleated RBCs/100 WBC Sample Site ABG pH ABG pCO2 ABG pO2 ABG HCO3 ABG Total CO2 ABG O2 Saturation ABG Base Excess Jaun Test Respiration Rate O2 Delivery Device Blood Gas Modality Inspired O2 Tidal Volume PEEP Sodium Potassium Chloride Carbon Dioxide BUN Creatinine Est GFR ( Amer) Est GFR (Non-Af Amer) BUN/Creatinine Ratio Glucose POC Glucose 160 H 138 H 125 H Calculated Osmolality Calcium Phosphorus Magnesium Troponin I 06/13/18 06/13/18 06/13/18 00:53 04:51 05:00 WBC RBC Hgb Hct MCV MCH MCHC RDW Plt Count MPV Immature Gran % Seg Neutrophils % Lymphocytes % Monocytes % Eosinophils % Basophils % Neutrophils # Lymphocytes # Monocytes # Eosinophils # Basophils # Nucleated RBCs/100 WBC Sample Site L Radial ABG pH 7.42 ABG pCO2 42 ABG pO2 86 ABG HCO3 27 ABG Total CO2 29 H ABG O2 Saturation 97 ABG Base Excess 3 Jaun Test N/A Respiration Rate 18 O2 Delivery Device Adult Vent Blood Gas Modality PRVC Inspired O2 30.0 Tidal Volume 500 PEEP 5 Sodium 142 Potassium 3.8 Chloride 110 H Carbon Dioxide 25 BUN 35 H Creatinine 0.81 Est GFR ( Amer) > 60 Est GFR (Non-Af Amer) > 60 BUN/Creatinine Ratio 43 H Glucose 145 H POC Glucose 144 H Calculated Osmolality 305 H Calcium 9.4 Phosphorus 3.6 Magnesium 1.8 Troponin I 06/13/18 06/13/18 05:00 08:44 WBC 8.0 RBC 2.55 L Hgb 7.2 L Hct 23.2 L MCV 91.0 MCH 28.2 MCHC 31.0 L RDW 16.2 H Plt Count 248 MPV 10.2 Immature Gran % 5.0 H Seg Neutrophils % 77.0 Lymphocytes % 11.7 Monocytes % 4.6 Eosinophils % 1.5 Basophils % 0.2 Neutrophils # 6.2 Lymphocytes # 0.9 Monocytes # 0.4 Eosinophils # 0.1 Basophils # 0.0 Nucleated RBCs/100 WBC 0.2 H Sample Site ABG pH ABG pCO2 ABG pO2 ABG HCO3 ABG Total CO2 ABG O2 Saturation ABG Base Excess Jaun Test Respiration Rate O2 Delivery Device Blood Gas Modality Inspired O2 Tidal Volume PEEP Sodium Potassium Chloride Carbon Dioxide BUN Creatinine Est GFR ( Amer) Est GFR (Non-Af Amer) BUN/Creatinine Ratio Glucose POC Glucose Calculated Osmolality Calcium Phosphorus Magnesium Troponin I < 0.03 Cultures: Cultures 06/11/18 15:00 Sputum Culture - Preliminary Aspirate Gram Negative Dex 06/12/18 12:28 Gram Stain - Preliminary Aspirate 06/11/18 09:34 Blood Culture - Preliminary Peripheral Venipuncture Culture is incubating and being continuously monitored for growth. Final report to follow. 06/11/18 09:30 Blood Culture - Preliminary Peripheral Venipuncture Culture is incubating and being continuously monitored for growth. Final report to follow. 06/06/18 03:35 Blood Culture - Final Peripheral Venipuncture No growth. Final report. 06/06/18 01:42 Blood Culture - Final Peripheral Venipuncture No growth. Final report. 06/04/18 09:10 Blood Culture - Final Peripheral Venipuncture No growth. Final report. 06/04/18 09:12 Blood Culture - Final Peripheral Venipuncture No growth. Final report. 06/02/18 20:12 Anaerobic Culture - Final Peritoneal Fluid No anaerobes were recovered. 06/06/18 09:20 Urine Culture - Final Urine,[place] No growth. 06/07/18 03:48 Sputum Culture - Final Sputum 06/02/18 20:12 Body Fluid Culture - Final Peritoneal Fluid Escherichia coli - Impressions Impressions Retroperitoneal Abscess Drainage 06/12/18 00:00 IMPRESSION: Successful CT guided placement of right abdominal abscess drainage catheter. D/ / Ethan Louie MD / Ethan Louie MD Interpreting Provider: Ethan Louie MD Chest X-Ray 06/13/18 10:10 IMPRESSION: 1. Lines and tubes as described. 2. Interval worsening of bibasilar atelectasis with probable small effusions. 3. Mild perihilar vascular congestion without overt failure. D/ / 06/13/2018 11:36:01 Liv Che MD / Dori Mcdonnell Interpreting Provider: Liv Che MD Exam - Constitutional Vitals: Temp Pulse Resp BP Pulse Ox 98.3 F 116 23 115/66 100 06/13/18 08:07 06/13/18 11:00 06/13/18 11:17 06/13/18 11:00 06/13/18 11:17 General appearance: cooperative, no acute distress, obese - Head Head exam: Present: atraumatic, normal inspection, normocephalic - Eye Eye exam: Present: normal appearance, PERRL Pupils: Present: normal accommodation - ENT ENT exam: Present: mucous membranes moist - Neck Neck exam: Present: normal inspection - Respiratory Respiratory exam: Present: CTAB. Absent: rales, respiratory distress, rhonchi, wheezes - Cardiovascular Cardiovascular exam: Present: +S1, +S2, tachycardia. Absent: irregular rhythm - GI/Abdominal GI/Abdominal exam: Present: distended, hypoactive bowel sounds, soft, tenderness (Generalize, patient grimaces with palpation of the abdomen) Additional comments: Midline abdominal incision dressing is clean, dry, and intact. Right upper quadrant drain with small amount of purulent brown drainage noted. Right lateral abdomen drain with moderate amount of bilious contents. SARBJIT drain noted to the left lateral abdomen with small amount of serosanguineous drainage. OG tube to low intermittent wall suction with moderate amount of gastric contents. [place] catheter noted to be draining clear yellow urine. - Extremities Exam Extremities exam: Present: normal inspection, pedal edema (1+ BLE). Absent: joint swelling, tenderness - Neurological Exam Neurological exam: Present: alert, oriented X3, no focal deficits - Psychiatric Psychiatric exam: Present: normal affect, normal mood - Skin Skin exam: Present: dry, intact, normal color, warm - VTE Documentation of Mechanical Device: Intermittent pneumatic compression device Consult Discharge Plan - Plan Referrals: Zafar Hinton MD [Primary Care Provider] - - Attending Attestation I examined this patient and my medical decision-making was reviewed with the Resident Physician. I agree with the documented findings, disposition and treatment plan as described except to the extent set forth below.
[2018-06-13] MEDS ORDERED: Clinimix E 5%-15% SOLUTION 2,000 ML, Parenteral Amino Acid 10% 200 ML with MVI, adult ... IVC SCH (17:00)
--- NOTE | 2018-06-13 17:12 | Neurology - Consult Note ---
Date of Encounter: 06/13/18 Time of Encounter: 17:07 Assessment and Plan (1) Encephalopathy Current Visit: Yes Status: Acute I believe that the mental status changes are multifactorial. We will likely we are dealing with toxic metabolic encephalopathy due to the effects of sepsis along with hypoxia at the time of the event this morning. However he seems now to be arousable, he does make eye contact and follow commands. He is all good prognostic signs. Perhaps he may have had a symptomatic seizure or a syncopal episode earlier today. In any regard I would not start him on antiepileptic medications. I find no focal or lateralized deficits on his exam. I will follow along over the next few days. He did have an EEG which revealed changes consistent with extensive encephalopathy however no seizure activity. Critical care time spent with this patient in the ICU today was 40 minutes History of Present Illness HPI: The chart was reviewed, the patient was seen and examined. Mr. Grossman is a 52 year old male who is seen for neurologic consultation at the request of Dr. Lamb regarding mental status changes in the spell earlier today that was suspected to possibly have been a seizure. Patient has been in the hospital for about 2 weeks now. Apparently he was admitted secondary to abdominal discomfort ultimately it was determined that he was having complications of a perforated duodenal ulcer. Emergency surgery revealed purulent contents in the abdomen and a draining abscess in the abdominal cavity. He has had waxing and waning periods of decreased responsiveness since that time. However, this morning while on CPAP he seemed to get a little hypoxic and his eyes rolled up in his head a tremor at some. He was concerned that perhaps this could may be of benefit seizure. However since that time he is been reintubated and he has had no more episodes of this nature. He does open his eyes and makes eye contact and follows simple commands. Past Med Surg Social Fam HX - Past Medical History Medical history: diabetes, GERD, hyperlipidemia, hypertension, kidney stones Psychiatric history: no psych history - Past Surgical History Surgical History: cataract, cholecystectomy, herniorrhaphy, orthopedic, other Additional surgical history: LEFT FOOT SURGERY WITH RODS IN FOOT, BILT KNEE SURGERY, HERNIA REPAIR, EYE IMPLANTS - Social History Smoking Status: Never smoker Smokeless Tobacco Status: No Alcohol use: none Drug use: none - Family History Mother Living Status: Hx Family Cardiac Disorders: Yes (HTN) Hx Family GI Disorders: Yes (GERD) Medications and Allergies Aspirin 81 mg PO DAILY 10/14/16 [History] Metformin HCl [Glucophage] 1,000 mg PO BID 10/14/16 [History] Triamterene/HCTZ 37.5/25mg [Dyazide] 1 tab PO DAILY 10/15/16 [History] Losartan Potassium [Cozaar] 100 mg PO DAILY 04/04/18 [History] hydrALAZINE [HydrALAZINE] 25 mg PO BID 04/04/18 [History] Metoprolol [Lopressor] 75 mg PO BID 30 Days #60 tablet 04/24/18 [Rx] Omeprazole [PriLOSEC] 20 mg PO BIDAC 30 Days #60 capsule.dr 04/24/18 [Rx] Amoxicillin/Clavulanate [Augmentin] 875 mg PO BIDWM 13 Days #26 tablet 04/25/18 [Rx] Fluconazole [Diflucan] 200 mg PO DAILY 13 Days #13 tab 05/01/18 [Rx] Linezolid [Zyvox] 600 mg PO BID 13 Days #26 tablet 05/01/18 [Rx] Metoclopramide [Reglan] 5 mg PO Q6HR #28 ud.liq 05/01/18 [Rx] Ondansetron ODT [Zofran ODT] 8 mg SL Q8HR #30 tab.rapdis 05/01/18 [Rx] 3 Allergy/AdvReac Type Severity Reaction Status Date / Time ciprofloxacin [From Cipro] Allergy Swelling Verified 06/02/18 13:16 of Lip/Tongue/Throat azithromycin AdvReac Vomiting Verified 06/02/18 13:16 codeine AdvReac Vomiting Verified 06/02/18 13:16 ROS unobtainable: due to endotracheal tube All Systems: The remainder of the systems were reviewed and are negative Physical Examination - Vital Signs Vital Signs: Initial Vital Signs Temp Pulse Resp BP Pulse Ox 98.2 F 144 24 129/97 96 06/02/18 08:09 06/02/18 08:09 06/02/18 08:09 06/02/18 08:09 06/02/18 08:09 - Neurologic Detailed motor examination: other (Patient is intubated on the ventilator. He is also restrained. He awakens and flexes both biceps in an attempt to relieve the restraints. 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 He wiggles the toes on both feet. I am unable however to assess him in the normal general fashion. He does not seem to have any focal or lateralized deficits.) Detailed sensory examination: other (Withdrawals to noxious stimuli.) Reflex and gait examination: other (Deep tendon reflexes are diminished throughout.) Mental Status Examination: Patient is sedated on the ventilator with Precedex. He will open his eyes to voice and to tactile stim. He does make eye contact. He follows some simple commands. At times he gets a little agitated and tries to break free from the restraints. He nods his head yes when I asked if he understood me. He is unable to talk because of the endotracheal tube. Cranial nerve examination: PERRL, EOMI, corneal reflexes brisk symmetrically Results - Laboratory Findings CBC and BMP: 06/13/18 05:00 06/13/18 05:00 Abnormal lab findings: Abnormal lab results RBC 2.55 M/mcL (4.19-5.50) L 06/13/18 05:00 Hgb 7.2 g/dL (12.9-16.9) L 06/13/18 05:00 Hct 23.2 % (37.5-50.1) L 06/13/18 05:00 MCHC 31.0 g/dL (31.6-35.5) L 06/13/18 05:00 RDW 16.2 % (11.5-14.5) H 06/13/18 05:00 Immature Gran % 5.0 % (0-4) H 06/13/18 05:00 Nucleated RBCs/100 WBC 0.2 /100 WBC (0) H 06/13/18 05:00 Toxic Granulation Present (Not Present) A 06/08/18 04:35 Large Platelets Present (Not Present) A 06/07/18 03:30 PT 13.2 Seconds (9.4-12.1) H 06/11/18 09:00 ABG Total CO2 29 mEq/L (20-26) H 06/13/18 04:51 Chloride 110 mEq/L (98-107) H 06/13/18 05:00 BUN 35 mg/dL (6-20) H 06/13/18 05:00 BUN/Creatinine Ratio 43 (6-26) H 06/13/18 05:00 Glucose 145 mg/dL (70-105) H 06/13/18 05:00 POC Glucose 144 mg/dL (70-99) H 06/13/18 00:53 Calculated Osmolality 305 (280-300) H 06/13/18 05:00 Direct Bilirubin 0.3 mg/dL (0.0-0.2) H 06/12/18 03:20 Serum Total Protein 5.6 g/dL (6.4-8.9) L 06/12/18 03:20 Albumin 2.7 g/dL (3.5-5.7) L 06/12/18 03:20 Albumin/Globulin Ratio 0.9 (1.1-2.2) L 06/12/18 03:20 Triglycerides 341 mg/dL (< 150) H 06/10/18 03:14 Gastrin 117 pg/mL (0-100) H 06/03/18 21:23 Urine Clarity Cloudy (Clear) A 06/02/18 09:18 Urine Protein 100 mg/dL (Neg-Trace) H 06/02/18 09:18 Urine Blood Large (Negative) H 06/02/18 09:18 Ur Leukocyte Esterase Moderate (Negative) H 06/02/18 09:18 Urine Microscopic RBC TNTC per hpf (0-3) H 06/02/18 09:18 Urine Microscopic WBC 15-30 per hpf (0-3) H 06/02/18 09:18 Ur Squamous Epith Cells Many per lpf (None-Few) H 06/02/18 09:18 Ur Culture Indicated? NO. (NO) A 06/02/18 09:18 Enterobacteriac sp PCR DETECTED (Not Detect) A 06/02/18 09:18 E. coli (PCR) DETECTED (Not Detect) A 06/02/18 09:18 Consult Discharge Plan - Plan Referrals: Zafar Hinton MD [Primary Care Provider] -
[2018-06-13] MEDS: Insulin Human Regular 250 UNIT in 0.9 % Sodium Chloride 250 ML IVC SCH (17:25)
[2018-06-13] MEDS: FentaNYL (PF) 2,500 MCG in EMPTY BAG 1 EACH IVC SCH (18:21)
--- NOTE | 2018-06-13 19:42 | Pulmonology Progress Note ---
Date of Encounter: 06/13/18 Time of Encounter: 08:40 Assessment and Plan (1) Sepsis Current Visit: No Status: Acute Original persistent septic shock due to Escherichia coli bacteremia after intra- abdominal abscess. Patient is not anymore on vasopressor support.. Continue the broad-spectrum antibiotics according to Infectious disease specialist Qualifiers: Sepsis type: sepsis due to unspecified organism Qualified Code(s): A41.9 - Sepsis, unspecified organism (2) Perforated abdominal viscus Current Visit: No Status: Acute Perforated abdominal viscus he had intra-abdominal abscess which was washed out the body fluid cultures growing Escherichia coli. (3) Altered mental status Current Visit: Yes Status: Acute Patient main reason for the altered mental status most likely due to toxic/ metabolic encephalopathy EEG and MRI was unremarkable neurology was consulted. Qualifiers: Altered mental status type: unspecified Qualified Code(s): R41.82 - Altered mental status, unspecified Subjective Principal diagnosis: Septic shock Interval history: Patient was undergoing spontaneous breathing trial had a brief episode of loss of consciousness with tachycardia and desaturation. Patient was left back to his original ventilator settings. Objective PUL Vital signs: Last Vital Signs Temp 100.8 F H 06/13/18 18:43 Pulse 137 06/13/18 19:00 Resp 29 06/13/18 19:00 BP 178/105 06/13/18 19:00 Pulse Ox 93 06/13/18 19:00 General appearance: other (mild respiratory distress ) Auscultation: bilateral: diminished breath sounds (bilateral ), rales ( scattered rales ) Gastrointestinal: hypoactive bowel sounds Extremities: edema Ventilator Settings Ventilator Settings: Ventilator Settings, Last 8 Hours Ventilator Tidal Volume 500 Setting Ventilator Tidal Volume 500 Setting Ventilator Tidal Volume 500 Setting Ventilator Tidal Volume 500 Setting Ventilator Tidal Volume 500 Setting Ventilator Tidal Volume 500 Setting Ventilator Tidal Volume 500 Setting Ventilator Tidal Volume 500 Setting Ventilator Tidal Volume 500 Setting Ventilator Tidal Volume 500 Setting Ventilator Tidal Volume 500 Setting Ventilator Respiratory Rate 18 Setting Ventilator Respiratory Rate 18 Setting Ventilator Respiratory Rate 18 Setting Ventilator Respiratory Rate 18 Setting Ventilator Respiratory Rate 18 Setting Ventilator Respiratory Rate 18 Setting Ventilator Respiratory Rate 18 Setting Ventilator Respiratory Rate 18 Setting Ventilator Respiratory Rate 18 Setting Ventilator Respiratory Rate 18 Setting Ventilator Respiratory Rate 18 Setting Actual Respiratory Rate 29 Actual Respiratory Rate 29 Actual Respiratory Rate 24 Actual Respiratory Rate 23 Actual Respiratory Rate 25 Actual Respiratory Rate 24 Actual Respiratory Rate 23 Actual Respiratory Rate 24 Actual Respiratory Rate 21 Actual Respiratory Rate 23 Actual Respiratory Rate 18 Positive End Expiratory 5 Pressure Positive End Expiratory 5 Pressure Positive End Expiratory 5 Pressure Positive End Expiratory 5 Pressure Positive End Expiratory 5 Pressure Positive End Expiratory 5 Pressure Positive End Expiratory 5 Pressure Positive End Expiratory 5 Pressure Positive End Expiratory 5 Pressure Positive End Expiratory 5 Pressure Positive End Expiratory 5 Pressure Peak Inspiratory Airway 13 Pressure Peak Inspiratory Airway 15 Pressure Peak Inspiratory Airway 18 Pressure Peak Inspiratory Airway 10 Pressure Peak Inspiratory Airway 8.2 Pressure Peak Inspiratory Airway 14 Pressure Peak Inspiratory Airway 9.6 Pressure Peak Inspiratory Airway 23 Pressure Peak Inspiratory Airway 28 Pressure Peak Inspiratory Airway 22 Pressure Peak Inspiratory Airway 16 Pressure Results - Laboratory Findings CBC and BMP: 06/13/18 05:00 06/13/18 05:00 ABG ABG pH 7.42 pH Units (7.32-7.45) 06/13/18 04:51 ABG pCO2 42 mmHg (35-45) 06/13/18 04:51 ABG pO2 86 mmHg (85-104) 06/13/18 04:51 ABG O2 Saturation 97 % (95-98) 06/13/18 04:51 PT/INR, D-dimer PT 13.2 Seconds (9.4-12.1) H 06/11/18 09:00 Abnormal lab findings: Abnormal lab results RBC 2.55 M/mcL (4.19-5.50) L 06/13/18 05:00 Hgb 7.2 g/dL (12.9-16.9) L 06/13/18 05:00 Hct 23.2 % (37.5-50.1) L 06/13/18 05:00 MCHC 31.0 g/dL (31.6-35.5) L 06/13/18 05:00 RDW 16.2 % (11.5-14.5) H 06/13/18 05:00 Immature Gran % 5.0 % (0-4) H 06/13/18 05:00 Nucleated RBCs/100 WBC 0.2 /100 WBC (0) H 06/13/18 05:00 Toxic Granulation Present (Not Present) A 06/08/18 04:35 Large Platelets Present (Not Present) A 06/07/18 03:30 PT 13.2 Seconds (9.4-12.1) H 06/11/18 09:00 ABG Total CO2 29 mEq/L (20-26) H 06/13/18 04:51 Chloride 110 mEq/L (98-107) H 06/13/18 05:00 BUN 35 mg/dL (6-20) H 06/13/18 05:00 BUN/Creatinine Ratio 43 (6-26) H 06/13/18 05:00 Glucose 145 mg/dL (70-105) H 06/13/18 05:00 POC Glucose 144 mg/dL (70-99) H 06/13/18 00:53 Calculated Osmolality 305 (280-300) H 06/13/18 05:00 Direct Bilirubin 0.3 mg/dL (0.0-0.2) H 06/12/18 03:20 Serum Total Protein 5.6 g/dL (6.4-8.9) L 06/12/18 03:20 Albumin 2.7 g/dL (3.5-5.7) L 06/12/18 03:20 Albumin/Globulin Ratio 0.9 (1.1-2.2) L 06/12/18 03:20 Triglycerides 341 mg/dL (< 150) H 06/10/18 03:14 Gastrin 117 pg/mL (0-100) H 06/03/18 21:23 Urine Clarity Cloudy (Clear) A 06/02/18 09:18 Urine Protein 100 mg/dL (Neg-Trace) H 06/02/18 09:18 Urine Blood Large (Negative) H 06/02/18 09:18 Ur Leukocyte Esterase Moderate (Negative) H 06/02/18 09:18 Urine Microscopic RBC TNTC per hpf (0-3) H 06/02/18 09:18 Urine Microscopic WBC 15-30 per hpf (0-3) H 06/02/18 09:18 Ur Squamous Epith Cells Many per lpf (None-Few) H 06/02/18 09:18 Ur Culture Indicated? NO. (NO) A 06/02/18 09:18 Enterobacteriac sp PCR DETECTED (Not Detect) A 06/02/18 09:18 E. coli (PCR) DETECTED (Not Detect) A 06/02/18 09:18 - Microbiology Findings Microbiology Findings: Microbiology, Last 48 Hours 06/12/18 12:28 Gram Stain - Preliminary Aspirate 06/12/18 12:28 Wound Culture - Preliminary Abdomen Gram Negative Dex 06/11/18 15:00 Sputum Culture - Preliminary Aspirate Gram Negative Dex - Clinical Findings Intake & Output: Intake & Output 06/13/18 06/13/18 06/13/18 07:59 15:59 23:59 Intake Total 535.9 / 535.9 584.2 / 584.2 259.8 / 259.8 Output Total 550 / 550 2860 / 2860 1298 / 1298 Balance -14.1 / -14.1 -2275.8 / -2275.8 -1038.2 / -1038.2 - VTE Documentation of Mechanical Device: Intermittent pneumatic compression device Consult Discharge Plan - Plan Referrals: Zafar Hinton MD [Primary Care Provider] -
[2018-06-14] MEDS: Artificial Tears SOLN 15 ML BOTTLE BOTH EYES SCH ×6 (03:12→23:09)
[2018-06-14 03:22] LABS: Basophils % 0.2 %; Eosinophils # 0.1 K/mcL (0.0-0.6); Eosinophils % 1.6 %; Hematocrit 23.7 % (37.5-50.1); Hemoglobin 7.2 g/dL (12.9-16.9); Immature Granulocytes % 3.9 % (0-4); Immature Platelets 3.8 % (1.1-6.1); Lymphocytes # 1.3 K/mcL (0.6-4.6); Lymphocytes % 14.6 %; Mean Corpuscular HGB Conc 30.4 g/dL (31.6-35.5); Mean Corpuscular Hemoglobin 27.5 pg (28.0-33.3); Mean Corpuscular Volume 90.5 fL (83.0-100.0); Mean Platelet Volume 10.3 fL (9.4-12.4); Monocytes # 0.4 K/mcL (0.0-1.3); Monocytes % 4.9 %; Neutrophils # 6.5 K/mcL (1.6-8.9); Nucleated Red Blood Cells 0.5 /100 WBC (0); Platelet Count 308 K/mcL (140-400); Red Blood Count 2.62 M/mcL (4.19-5.50); Red Cell Distribution Width 16.2 % (11.5-14.5); Segmented Neutrophils % 74.8 %
[2018-06-14] MEDS: Dexmedetomidine HCl 400 MCG/100 ML MLS IVC SCH ×5 (03:53→23:24)
[2018-06-14 04:24] LABS: BUN/Creatinine Ratio 40 (6-26); Blood Urea Nitrogen 37 mg/dL (6-20); Calcium 9.5 mg/dL (8.6-10.3); Carbon Dioxide 24 mEq/L (23-29); Chloride 108 mEq/L (98-107); Glucose 162 mg/dL (70-105); Magnesium 1.8 mg/dL (1.6-2.6); Osmolality,Calculated 304 (280-300); Phosphorous 4.4 mg/dL (2.7-4.5); Potassium 3.5 mEq/L (3.5-5.1); Sodium 141 mEq/L (136-145); eGFR For Non-African Americans > 60 (> 60)
[2018-06-14] MEDS: *HR* Heparin 5,000 UNIT/ML VIAL SQ SCH ×3 (04:54→19:52)
[2018-06-14] MEDS: Pantoprazole 40 MG VIAL IVP SCH ×2 (04:54→17:30)
[2018-06-14 05:08] LABS: ABG Base Excess 1 mEq/L (-2 to 3); ABG HCO3 26 mEq/L (21-27); ABG Oxygen Saturation 96 % (95-98); ABG PCO2 41 mmHg (35-45); ABG PO2 84 mmHg (85-104); ABG TCO2 27 mEq/L (20-26); Blood Gas Modality ASSIST CONTROL; Blood Gas PEEP 5 cm H2O; Blood Gas Respiration Rate 18; Blood Gas VT 500 cc
[2018-06-14] MEDS: FentaNYL (PF) 2,500 MCG in EMPTY BAG 1 EACH IVC SCH ×2 (06:29→23:09)
[2018-06-14] MEDS: Piperacillin/Tazobactam 3.375 GM in 0.9 % Sodium Chloride Mini Bag 100 ML IVPB SCH ×3 (07:57→23:08)
[2018-06-14] MEDS: Chlorhexidine Rinse 15 ML MOUTHWASH MM SCH ×2 (07:57→19:52)
[2018-06-14] MEDS: Furosemide 40 MG/4 ML VIAL IVP SCH (07:58)
[2018-06-14] MEDS: Fluconazole 200 MG/100 ML 200 MG/100 ML BAG IVPB SCH (07:59)
--- NOTE | 2018-06-14 08:20 | Electrocardiograph Report ---
[place] [id number] Test Date: 2018-06-11 Pat Name: Ryan Grossman Department: 112 Room: 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
--- NOTE | 2018-06-14 08:28 | Electrocardiograph Report ---
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
--- NOTE | 2018-06-14 11:33 | Neurology Progress Note ---
Date of Encounter: 06/14/18 Time of Encounter: 11:31 Assessment and Plan (1) Encephalopathy Current Visit: Yes Status: Acute Patient is improving from a neurologic perspective. I anticipate that as the infection, and toxic metabolites clear from his system, his neurologic condition should continue to improve back to baseline. At this juncture I will sign off and reevaluate him at your request. Subjective Principal diagnosis: Septic shock Interval history: Chart was reviewed, patient was seen and examined. Patient is increasingly more attentive, and improving neurologically. He is making eye contact, he nods yes or no to answer questions. He is following commands more specifically. He has no focal or lateralized deficits on his examination. No reason to expect a central nervous system vascular, or infectious process. No nuchal rigidity present. Objective - Constitutional Vitals: Temp Pulse Resp BP Pulse Ox 98.9 F 114 23 123/82 98 06/14/18 09:00 06/14/18 09:00 06/14/18 09:00 06/14/18 09:00 06/14/18 09:12 - Neurological Exam Motor Examination: Present: other (Definitely no focal or lateralized deficits. 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 He wiggles the toes on each foot at command.) Sensation intact: Present: other (Withdrawals to noxious stimuli.) Reflex and gait examination: other (Deep tendon reflexes are diminished throughout.) Mental Status Examination: Present: awake, alert, answers questions appropriately (Via nodding yes or no.), makes eye contact, follows simple commands Cranial nerve examination: Present: PERRL, EOMI, corneal reflexes brisk symmetrically - VTE Documentation of Mechanical Device: Intermittent pneumatic compression device Results - Laboratory Findings CBC and BMP: 06/14/18 03:00 06/14/18 03:00 Abnormal lab findings: Abnormal lab results RBC 2.62 M/mcL (4.19-5.50) L 06/14/18 03:00 Hgb 7.2 g/dL (12.9-16.9) L 06/14/18 03:00 Hct 23.7 % (37.5-50.1) L 06/14/18 03:00 MCH 27.5 pg (28.0-33.3) L 06/14/18 03:00 MCHC 30.4 g/dL (31.6-35.5) L 06/14/18 03:00 RDW 16.2 % (11.5-14.5) H 06/14/18 03:00 Nucleated RBCs/100 WBC 0.5 /100 WBC (0) H 06/14/18 03:00 Toxic Granulation Present (Not Present) A 06/08/18 04:35 Large Platelets Present (Not Present) A 06/07/18 03:30 PT 13.2 Seconds (9.4-12.1) H 06/11/18 09:00 ABG pO2 84 mmHg (85-104) L 06/14/18 05:05 ABG Total CO2 27 mEq/L (20-26) H 06/14/18 05:05 Chloride 108 mEq/L (98-107) H 06/14/18 03:00 BUN 37 mg/dL (6-20) H 06/14/18 03:00 BUN/Creatinine Ratio 40 (6-26) H 06/14/18 03:00 Glucose 162 mg/dL (70-105) H 06/14/18 03:00 POC Glucose 152 mg/dL (70-99) H 06/14/18 01:08 Calculated Osmolality 304 (280-300) H 06/14/18 03:00 Direct Bilirubin 0.3 mg/dL (0.0-0.2) H 06/12/18 03:20 Serum Total Protein 5.6 g/dL (6.4-8.9) L 06/12/18 03:20 Albumin 2.7 g/dL (3.5-5.7) L 06/12/18 03:20 Albumin/Globulin Ratio 0.9 (1.1-2.2) L 06/12/18 03:20 Triglycerides 341 mg/dL (< 150) H 06/10/18 03:14 Gastrin 117 pg/mL (0-100) H 06/03/18 21:23 Urine Clarity Cloudy (Clear) A 06/02/18 09:18 Urine Protein 100 mg/dL (Neg-Trace) H 06/02/18 09:18 Urine Blood Large (Negative) H 06/02/18 09:18 Ur Leukocyte Esterase Moderate (Negative) H 06/02/18 09:18 Urine Microscopic RBC TNTC per hpf (0-3) H 06/02/18 09:18 Urine Microscopic WBC 15-30 per hpf (0-3) H 06/02/18 09:18 Ur Squamous Epith Cells Many per lpf (None-Few) H 06/02/18 09:18 Ur Culture Indicated? NO. (NO) A 06/02/18 09:18 Enterobacteriac sp PCR DETECTED (Not Detect) A 06/02/18 09:18 E. coli (PCR) DETECTED (Not Detect) A 06/02/18 09:18 Consult Discharge Plan - Plan Referrals: Zafar Hinton MD [Primary Care Provider] -
--- NOTE | 2018-06-14 12:30 | Pulmonology Progress Note ---
Date of Encounter: 06/14/18 Time of Encounter: 10:00 Assessment and Plan (1) Acute respiratory failure Current Visit: Yes Status: Acute Secondary to intraabdominal sepsis and with pneumonia and hydrostatic pulmonary edema.Will attempt extra diuresis today Qualifiers: Respiratory failure complication: hypoxia and hypercapnia Qualified Code(s) : J96.01 - Acute respiratory failure with hypoxia; J96.02 - Acute respiratory failure with hypercapnia (2) Sepsis Current Visit: No Status: Acute Original persistent septic shock due to Escherichia coli bacteremia after intra- abdominal abscess. Patient is not anymore on vasopressor support.. Continue the broad-spectrum antibiotics according to Infectious disease specialist Patient with E coli bacteremia with intra-abdominal source now with sputum growing g -ve organisms Qualifiers: Sepsis type: sepsis due to unspecified organism Qualified Code(s): A41.9 - Sepsis, unspecified organism (3) Perforated abdominal viscus Current Visit: No Status: Acute Perforated abdominal viscus he had intra-abdominal abscess which was washed out the body fluid cultures growing Escherichia coli. (4) Altered mental status Current Visit: Yes Status: Acute Patient main reason for the altered mental status most likely due to toxic/ metabolic encephalopathy EEG and MRI was unremarkable neurology was consulted. The AMS improving most likely due to toxic /metabolic encephalopathy Qualifiers: Altered mental status type: unspecified Qualified Code(s): R41.82 - Altered mental status, unspecified (5) CAROL (acute kidney injury) Current Visit: No Status: Acute Patient kidney function stable will do extra diuresis . (6) DVT prophylaxis Current Visit: Yes Status: Acute To continue the current regimen of Thromboprophylaxis Subjective Principal diagnosis: Septic shock Interval history: Patient was undergoing spontaneous breathing trial had a brief episode of loss of consciousness with tachycardia and desaturation. Patient was left back to his original ventilator settings. 06/14 Patient underwent SBT for 4 hrs then he became tachypneic. Objective PUL Vital signs: Last Vital Signs Temp 98.0 F 06/14/18 11:00 Pulse 112 06/14/18 11:00 Resp 20 06/14/18 11:43 BP 121/83 06/14/18 11:43 Pulse Ox 100 06/14/18 11:43 General appearance: other (Patient is arousable to verbal commands ) Auscultation: bilateral: diminished breath sounds, rales (some scattered rales ) Gastrointestinal: hypoactive bowel sounds, other (distended with abdominal drains draining well) other (Patient is lethargic but he is arousable to verbal stimuli ) Ventilator Settings Ventilator Settings: Ventilator Settings, Last 8 Hours Ventilator Tidal Volume 500 Setting Ventilator Tidal Volume 500 Setting Ventilator Tidal Volume 500 Setting Ventilator Respiratory Rate 18 Setting Ventilator Respiratory Rate 18 Setting Ventilator Respiratory Rate 18 Setting Actual Respiratory Rate 20 Actual Respiratory Rate 20 Actual Respiratory Rate 20 Actual Respiratory Rate 20 Actual Respiratory Rate 20 Actual Respiratory Rate 21 Actual Respiratory Rate 21 Actual Respiratory Rate 21 Actual Respiratory Rate 27 Actual Respiratory Rate 19 Actual Respiratory Rate 20 Positive End Expiratory 5 Pressure Positive End Expiratory 5 Pressure Positive End Expiratory 5 Pressure Positive End Expiratory 5 Pressure Positive End Expiratory 5 Pressure Positive End Expiratory 5 Pressure Positive End Expiratory 5 Pressure Positive End Expiratory 5 Pressure Positive End Expiratory 5 Pressure Positive End Expiratory 5 Pressure Positive End Expiratory 5 Pressure Positive End Expiratory 5 Pressure Peak Inspiratory Airway 10 Pressure Peak Inspiratory Airway 10 Pressure Peak Inspiratory Airway 10 Pressure Peak Inspiratory Airway 11 Pressure Peak Inspiratory Airway 11 Pressure Peak Inspiratory Airway 12 Pressure Peak Inspiratory Airway 12 Pressure Peak Inspiratory Airway 12 Pressure Peak Inspiratory Airway 12 Pressure Peak Inspiratory Airway 15 Pressure Peak Inspiratory Airway 18 Pressure Results - Laboratory Findings CBC and BMP: 06/14/18 03:00 06/14/18 03:00 ABG ABG pH 7.40 pH Units (7.32-7.45) 06/14/18 05:05 ABG pCO2 41 mmHg (35-45) 06/14/18 05:05 ABG pO2 84 mmHg (85-104) L 06/14/18 05:05 ABG O2 Saturation 96 % (95-98) 06/14/18 05:05 PT/INR, D-dimer PT 13.2 Seconds (9.4-12.1) H 06/11/18 09:00 Abnormal lab findings: Abnormal lab results RBC 2.62 M/mcL (4.19-5.50) L 06/14/18 03:00 Hgb 7.2 g/dL (12.9-16.9) L 06/14/18 03:00 Hct 23.7 % (37.5-50.1) L 06/14/18 03:00 MCH 27.5 pg (28.0-33.3) L 06/14/18 03:00 MCHC 30.4 g/dL (31.6-35.5) L 06/14/18 03:00 RDW 16.2 % (11.5-14.5) H 06/14/18 03:00 Nucleated RBCs/100 WBC 0.5 /100 WBC (0) H 06/14/18 03:00 Toxic Granulation Present (Not Present) A 06/08/18 04:35 Large Platelets Present (Not Present) A 06/07/18 03:30 PT 13.2 Seconds (9.4-12.1) H 06/11/18 09:00 ABG pO2 84 mmHg (85-104) L 06/14/18 05:05 ABG Total CO2 27 mEq/L (20-26) H 06/14/18 05:05 Chloride 108 mEq/L (98-107) H 06/14/18 03:00 BUN 37 mg/dL (6-20) H 06/14/18 03:00 BUN/Creatinine Ratio 40 (6-26) H 06/14/18 03:00 Glucose 162 mg/dL (70-105) H 06/14/18 03:00 POC Glucose 152 mg/dL (70-99) H 06/14/18 01:08 Calculated Osmolality 304 (280-300) H 06/14/18 03:00 Direct Bilirubin 0.3 mg/dL (0.0-0.2) H 06/12/18 03:20 Serum Total Protein 5.6 g/dL (6.4-8.9) L 06/12/18 03:20 Albumin 2.7 g/dL (3.5-5.7) L 06/12/18 03:20 Albumin/Globulin Ratio 0.9 (1.1-2.2) L 06/12/18 03:20 Triglycerides 341 mg/dL (< 150) H 06/10/18 03:14 Gastrin 117 pg/mL (0-100) H 06/03/18 21:23 Urine Clarity Cloudy (Clear) A 06/02/18 09:18 Urine Protein 100 mg/dL (Neg-Trace) H 06/02/18 09:18 Urine Blood Large (Negative) H 06/02/18 09:18 Ur Leukocyte Esterase Moderate (Negative) H 06/02/18 09:18 Urine Microscopic RBC TNTC per hpf (0-3) H 06/02/18 09:18 Urine Microscopic WBC 15-30 per hpf (0-3) H 06/02/18 09:18 Ur Squamous Epith Cells Many per lpf (None-Few) H 06/02/18 09:18 Ur Culture Indicated? NO. (NO) A 06/02/18 09:18 Enterobacteriac sp PCR DETECTED (Not Detect) A 06/02/18 09:18 E. coli (PCR) DETECTED (Not Detect) A 06/02/18 09:18 - Microbiology Findings Microbiology Findings: Microbiology, Last 48 Hours 06/12/18 12:28 Wound Culture - Final Abdomen Escherichia coli 06/11/18 15:00 Sputum Culture - Final Aspirate Escherichia coli 06/12/18 12:28 Gram Stain - Preliminary Aspirate - Clinical Findings Intake & Output: Intake & Output 06/13/18 06/14/18 06/14/18 23:59 07:59 15:59 Intake Total 680.7 / 680.7 622.9 / 622.9 100 / 100 Output Total 1868 / 1868 350 / 350 475 / 475 Balance -1187.3 / -1187.3 272.9 / 272.9 -375 / -375 Weight 103.5 kg - VTE Documentation of Mechanical Device: Intermittent pneumatic compression device Consult Discharge Plan - Plan Referrals: Zafar Hinton MD [Primary Care Provider] -
[2018-06-14 12:35] LABS: ABG Base Excess 3 mEq/L (-2 to 3); ABG HCO3 28 mEq/L (21-27); ABG Oxygen Saturation 98 % (95-98); ABG PCO2 44 mmHg (35-45); ABG PH 7.41 pH Units (7.32-7.45); ABG PO2 105 mmHg (85-104); ABG TCO2 29 mEq/L (20-26); Blood Gas Modality ASSIST CONTROL; Blood Gas PEEP 5 cm H2O; Blood Gas Respiration Rate 18; Blood Gas VT 500 cc
[2018-06-14] MEDS ORDERED: Furosemide 40 MG/4 ML VIAL IVP ONE (12:40)
[2018-06-14] MEDS ORDERED: Nystatin Cream 15 GM TUBE TP SCH (16:15)
[2018-06-14] MEDS ORDERED: Clinimix E 5%-15% SOLUTION 2,000 ML, Parenteral Amino Acid 10% 200 ML with MVI, adult ... IVC SCH (17:00)
[2018-06-14] MEDS: Nystatin SUSP 5 ML UD.LIQ PO SCH ×2 (17:33→19:52)
[2018-06-15] MEDS: Artificial Tears SOLN 15 ML BOTTLE BOTH EYES SCH ×6 (03:34→23:10)
[2018-06-15 03:42] LABS: Basophils % 0.4 %; Eosinophils # 0.2 K/mcL (0.0-0.6); Hematocrit 23.1 % (37.5-50.1); Hemoglobin 7.2 g/dL (12.9-16.9); Immature Granulocytes % 2.6 % (0-4); Lymphocytes # 1.1 K/mcL (0.6-4.6); Lymphocytes % 11.5 %; Mean Corpuscular HGB Conc 31.2 g/dL (31.6-35.5); Mean Corpuscular Hemoglobin 27.6 pg (28.0-33.3); Mean Corpuscular Volume 88.5 fL (83.0-100.0); Mean Platelet Volume 10.1 fL (9.4-12.4); Monocytes # 0.4 K/mcL (0.0-1.3); Monocytes % 4.2 %; Neutrophils # 7.5 K/mcL (1.6-8.9); Nucleated Red Blood Cells 0.3 /100 WBC (0); Platelet Count 343 K/mcL (140-400); Red Blood Count 2.61 M/mcL (4.19-5.50); Red Cell Distribution Width 16.2 % (11.5-14.5); Segmented Neutrophils % 79.3 %
[2018-06-15 03:55] LABS: BUN/Creatinine Ratio 41 (6-26); Blood Urea Nitrogen 43 mg/dL (6-20); Calcium 9.5 mg/dL (8.6-10.3); Carbon Dioxide 24 mEq/L (23-29); Chloride 106 mEq/L (98-107); Glucose 175 mg/dL (70-105); Magnesium 1.7 mg/dL (1.6-2.6); Osmolality,Calculated 309 (280-300); Phosphorous 5.2 mg/dL (2.7-4.5); Potassium 3.2 mEq/L (3.5-5.1); Sodium 142 mEq/L (136-145); eGFR For Non-African Americans > 60 (> 60)
[2018-06-15] MEDS: Dexmedetomidine HCl 400 MCG/100 ML MLS IVC SCH ×4 (04:18→19:54)
[2018-06-15] MEDS: Insulin Human Regular 250 UNIT in 0.9 % Sodium Chloride 250 ML IVC SCH ×2 (04:25→23:11)
[2018-06-15] MEDS: *HR* Heparin 5,000 UNIT/ML VIAL SQ SCH ×3 (06:07→20:51)
[2018-06-15] MEDS: Pantoprazole 40 MG VIAL IVP SCH ×2 (06:07→16:45)
--- NOTE | 2018-06-15 07:19 | Pulmonology Progress Note ---
<Nathaniel Kumar - Last Filed: 06/15/18 10:08> Date of Encounter: 06/15/18 Time of Encounter: 06:45 Assessment and Plan (1) Septic shock due to Escherichia coli Current Visit: Yes Status: Acute Most likely 2/2 intraabdominal abscess with purulant fluid collections. 1/2 initial blood cultures pos E coli. Initial body fluid culture pos E coli. Remains intubated and sedated. Off propofol now. Precedex weaning now with haldol on board. Encephalopathy continues to improve, neuro evaluated and signed off, arousable to voice today, following commands, squeezed hands and moved toes. Likely metabolic. EEG showed generalized slowing, MRI brain without any acute abnormality. IR drained abdominal abscess grew E coli. WBC 9.4 today. lactic 1.1. Sputum culture pos for Ecoli. Repeat blood cultures ngtd. Continue zosyn and diflucan today. ID on board will manage abx changes. CPAP trial again today. Tolerated 4 hours yesterday. (2) Bacteremia due to Gram-negative bacteria Current Visit: Yes Status: Acute Initial blood culture pos for E coli 1/2. sensitive to pip/tazo which he is on, resistant to ampicillin, amp/sulbactam. ID on board. Repeat cultures no growth. Will continue current abx, deescalate as able. Repeat bc ngtd. Abdominal wound drainage and sputum culture pos for E coli. (3) Acute on chronic renal failure Current Visit: Yes Status: Resolved Resolved. Cr 1.06 today. Electrolytes stable. Will avoid nephrotoxins, and monitor electrolytes replacing as needed. Qualifiers: Acute renal failure type: unspecified Chronic kidney disease stage: unspecified stage Qualified Code(s): N17.9 - Acute kidney failure, unspecified ; N18.9 - Chronic kidney disease, unspecified (4) Perforated viscus Current Visit: Yes Status: Acute S/p exlap, washout, gerri-en-y. Surg following. Repeat wound cultures grew E coli. (5) Lactic acidosis Current Visit: Yes Status: Acute Resolved. Lactic had high of 5.1, Latest 1.1. (6) Anemia Current Visit: Yes Status: Acute Hgb 7.2 this morning, Stable in 7's since PRBC infusion. Qualifiers: Anemia type: other cause Other causes of anemia: other cause, not classified Qualified Code(s): D64.89 - Other specified anemias (7) Diabetes Current Visit: Yes Status: Chronic Hx of DM. On TPN, glucose stable since insulin infusion. Continue infusion for now. Qualifiers: Diabetes mellitus type: type 2 Diabetes mellitus nursing home insulin use: without nursing home use Diabetes mellitus complication status: with hyperglycemia Qualified Code(s): E11.65 - Type 2 diabetes mellitus with hyperglycemia (8) VRE (vancomycin-resistant Enterococci) Current Visit: No Status: Inactive Hx of VRE in urine. Treated with outpatient abx with ID. On contact precautions. (9) Obesity (BMI 30.0-34.9) Current Visit: Yes Status: Chronic BMI 34.6. Will recommend lifestyle modifications upon dc. (10) DVT prophylaxis Current Visit: Yes Status: Acute Heparin prophylaxis Subjective Principal diagnosis: Septic shock Interval history: No acute events overnight. Intubated and sedated. Afebrile overnight. CPAP trial for 4 hours yesterday. Awake and follows commands today. Objective PUL Vital signs: Last Vital Signs Temp 98.9 F 06/15/18 03:00 Pulse 88 06/15/18 06:05 Resp 18 06/15/18 06:19 BP 105/74 06/15/18 06:19 Pulse Ox 100 06/15/18 06:19 General appearance: no acute distress, asleep (easily arousable to voice), other (On vent, follows commands, answers simple yes no questions with nods ) Eyes: nonicteric ENT: oropharynx moist Auscultation: bilateral: clear Cardiovascular: other (tachycardic) Gastrointestinal: normoactive bowel sounds, soft Extremities: no cyanosis, edema (trace pedal) other (arousable to voice, follows commands ) Ventilator Settings Ventilator Settings: Ventilator Settings, Last 8 Hours Ventilator Tidal Volume 500 Setting Ventilator Tidal Volume 500 Setting Ventilator Tidal Volume 500 Setting Ventilator Tidal Volume 500 Setting Ventilator Tidal Volume 500 Setting Ventilator Tidal Volume 500 Setting Ventilator Tidal Volume 500 Setting Ventilator Tidal Volume 500 Setting Ventilator Tidal Volume 500 Setting Ventilator Tidal Volume 500 Setting Ventilator Respiratory Rate 18 Setting Ventilator Respiratory Rate 18 Setting Ventilator Respiratory Rate 18 Setting Ventilator Respiratory Rate 18 Setting Ventilator Respiratory Rate 18 Setting Ventilator Respiratory Rate 18 Setting Ventilator Respiratory Rate 18 Setting Ventilator Respiratory Rate 18 Setting Ventilator Respiratory Rate 18 Setting Ventilator Respiratory Rate 18 Setting Actual Respiratory Rate 18 Actual Respiratory Rate 18 Actual Respiratory Rate 18 Actual Respiratory Rate 18 Actual Respiratory Rate 18 Actual Respiratory Rate 18 Actual Respiratory Rate 18 Actual Respiratory Rate 18 Actual Respiratory Rate 18 Actual Respiratory Rate 18 Positive End Expiratory 5 Pressure Positive End Expiratory 5 Pressure Positive End Expiratory 5 Pressure Positive End Expiratory 5 Pressure Positive End Expiratory 5 Pressure Positive End Expiratory 5 Pressure Positive End Expiratory 5 Pressure Positive End Expiratory 5 Pressure Positive End Expiratory 5 Pressure Positive End Expiratory 5 Pressure Peak Inspiratory Airway 21 Pressure Peak Inspiratory Airway 21 Pressure Peak Inspiratory Airway 18 Pressure Peak Inspiratory Airway 20 Pressure Peak Inspiratory Airway 19 Pressure Peak Inspiratory Airway 19 Pressure Peak Inspiratory Airway 19 Pressure Peak Inspiratory Airway 19 Pressure Peak Inspiratory Airway 18 Pressure Peak Inspiratory Airway 18 Pressure Results - Laboratory Findings CBC and BMP: 06/15/18 03:28 06/15/18 03:28 ABG ABG pH 7.41 pH Units (7.32-7.45) 06/14/18 12:30 ABG pCO2 44 mmHg (35-45) 06/14/18 12:30 ABG pO2 105 mmHg (85-104) H 06/14/18 12:30 ABG O2 Saturation 98 % (95-98) 06/14/18 12:30 PT/INR, D-dimer PT 13.2 Seconds (9.4-12.1) H 06/11/18 09:00 Abnormal lab findings: Abnormal lab results RBC 2.61 M/mcL (4.19-5.50) L 06/15/18 03:28 Hgb 7.2 g/dL (12.9-16.9) L 06/15/18 03:28 Hct 23.1 % (37.5-50.1) L 06/15/18 03:28 MCH 27.6 pg (28.0-33.3) L 06/15/18 03:28 MCHC 31.2 g/dL (31.6-35.5) L 06/15/18 03:28 RDW 16.2 % (11.5-14.5) H 06/15/18 03:28 Nucleated RBCs/100 WBC 0.3 /100 WBC (0) H 06/15/18 03:28 Toxic Granulation Present (Not Present) A 06/08/18 04:35 Large Platelets Present (Not Present) A 06/07/18 03:30 PT 13.2 Seconds (9.4-12.1) H 06/11/18 09:00 ABG pO2 105 mmHg (85-104) H 06/14/18 12:30 ABG HCO3 28 mEq/L (21-27) H 06/14/18 12:30 ABG Total CO2 29 mEq/L (20-26) H 06/14/18 12:30 Potassium 3.2 mEq/L (3.5-5.1) L 06/15/18 03:28 BUN 43 mg/dL (6-20) H 06/15/18 03:28 BUN/Creatinine Ratio 41 (6-26) H 06/15/18 03:28 Glucose 175 mg/dL (70-105) H 06/15/18 03:28 POC Glucose 143 mg/dL (70-99) H 06/14/18 23:55 Calculated Osmolality 309 (280-300) H 06/15/18 03:28 Phosphorus 5.2 mg/dL (2.7-4.5) H 06/15/18 03:28 Direct Bilirubin 0.3 mg/dL (0.0-0.2) H 06/12/18 03:20 Serum Total Protein 5.6 g/dL (6.4-8.9) L 06/12/18 03:20 Albumin 2.7 g/dL (3.5-5.7) L 06/12/18 03:20 Albumin/Globulin Ratio 0.9 (1.1-2.2) L 06/12/18 03:20 Triglycerides 341 mg/dL (< 150) H 06/10/18 03:14 Gastrin 117 pg/mL (0-100) H 06/03/18 21:23 Urine Clarity Cloudy (Clear) A 06/02/18 09:18 Urine Protein 100 mg/dL (Neg-Trace) H 06/02/18 09:18 Urine Blood Large (Negative) H 06/02/18 09:18 Ur Leukocyte Esterase Moderate (Negative) H 06/02/18 09:18 Urine Microscopic RBC TNTC per hpf (0-3) H 06/02/18 09:18 Urine Microscopic WBC 15-30 per hpf (0-3) H 06/02/18 09:18 Ur Squamous Epith Cells Many per lpf (None-Few) H 06/02/18 09:18 Ur Culture Indicated? NO. (NO) A 06/02/18 09:18 Enterobacteriac sp PCR DETECTED (Not Detect) A 06/02/18 09:18 E. coli (PCR) DETECTED (Not Detect) A 06/02/18 09:18 - Microbiology Findings Microbiology Findings: Microbiology, Last 48 Hours 06/12/18 12:28 Gram Stain - Final Aspirate 06/12/18 12:28 Wound Culture - Final Abdomen Escherichia coli 06/11/18 15:00 Sputum Culture - Final Aspirate Escherichia coli - Clinical Findings Intake & Output: Intake & Output 06/14/18 06/14/18 06/15/18 15:59 23:59 07:59 Intake Total 300 / 300 350 / 350 529.9 / 529.9 Output Total 2815 / 2815 2130 / 2130 320 / 320 Balance -2515 / -2515 -1780 / -1780 209.9 / 209.9 Weight 100.8 kg - VTE Documentation of Mechanical Device: Intermittent pneumatic compression device Consult Discharge Plan - Plan Referrals: Zafar Hinton MD [Primary Care Provider] - <Tigist Thomas - Last Filed: 06/15/18 23:19> Date of Encounter: 06/15/18 Assessment and Plan (1) Acute respiratory failure Current Visit: Yes Status: Acute Qualifiers: Respiratory failure complication: hypoxia and hypercapnia Qualified Code(s) : J96.01 - Acute respiratory failure with hypoxia; J96.02 - Acute respiratory failure with hypercapnia (2) Sepsis Current Visit: No Status: Acute Qualifiers: Sepsis type: sepsis due to unspecified organism Qualified Code(s): A41.9 - Sepsis, unspecified organism (3) Perforated abdominal viscus Current Visit: No Status: Acute (4) Altered mental status Current Visit: Yes Status: Acute Qualifiers: Altered mental status type: unspecified Qualified Code(s): R41.82 - Altered mental status, unspecified (5) CAROL (acute kidney injury) Current Visit: No Status: Acute (6) DVT prophylaxis Current Visit: Yes Status: Acute Objective PUL Vital signs: Last Vital Signs Temp 99.5 F 06/15/18 20:00 Pulse 93 06/15/18 21:52 Resp 22 06/15/18 21:52 BP 117/76 06/15/18 21:52 Pulse Ox 100 06/15/18 21:52 Ventilator Settings Ventilator Settings: Ventilator Settings, Last 8 Hours Ventilator Tidal Volume 500 Setting Ventilator Tidal Volume 500 Setting Ventilator Tidal Volume 500 Setting Ventilator Tidal Volume 500 Setting Ventilator Tidal Volume 500 Setting Ventilator Tidal Volume 500 Setting Ventilator Tidal Volume 500 Setting Ventilator Respiratory Rate 18 Setting Ventilator Respiratory Rate 18 Setting Ventilator Respiratory Rate 18 Setting Ventilator Respiratory Rate 18 Setting Ventilator Respiratory Rate 18 Setting Ventilator Respiratory Rate 18 Setting Ventilator Respiratory Rate 18 Setting Actual Respiratory Rate 22 Actual Respiratory Rate 18 Actual Respiratory Rate 20 Actual Respiratory Rate 20 Actual Respiratory Rate 18 Actual Respiratory Rate 18 Actual Respiratory Rate 18 Actual Respiratory Rate 26 Actual Respiratory Rate 17 Actual Respiratory Rate 14 Positive End Expiratory 5 Pressure Positive End Expiratory 5 Pressure Positive End Expiratory 5 Pressure Positive End Expiratory 5 Pressure Positive End Expiratory 5 Pressure Positive End Expiratory 5 Pressure Positive End Expiratory 5 Pressure Positive End Expiratory 5 Pressure Positive End Expiratory 5 Pressure Positive End Expiratory 5 Pressure Peak Inspiratory Airway 18 Pressure Peak Inspiratory Airway 18 Pressure Peak Inspiratory Airway 18 Pressure Peak Inspiratory Airway 18 Pressure Peak Inspiratory Airway 18 Pressure Peak Inspiratory Airway 19 Pressure Peak Inspiratory Airway 19 Pressure Peak Inspiratory Airway 11 Pressure Peak Inspiratory Airway 11 Pressure Peak Inspiratory Airway 11 Pressure Results - Laboratory Findings CBC and BMP: 06/15/18 03:28 06/15/18 16:32 ABG ABG pH 7.41 pH Units (7.32-7.45) 06/14/18 12:30 ABG pCO2 44 mmHg (35-45) 06/14/18 12:30 ABG pO2 105 mmHg (85-104) H 06/14/18 12:30 ABG O2 Saturation 98 % (95-98) 06/14/18 12:30 PT/INR, D-dimer PT 13.2 Seconds (9.4-12.1) H 06/11/18 09:00 Abnormal lab findings: Abnormal lab results RBC 2.61 M/mcL (4.19-5.50) L 06/15/18 03:28 Hgb 7.2 g/dL (12.9-16.9) L 06/15/18 03:28 Hct 23.1 % (37.5-50.1) L 06/15/18 03:28 MCH 27.6 pg (28.0-33.3) L 06/15/18 03:28 MCHC 31.2 g/dL (31.6-35.5) L 06/15/18 03:28 RDW 16.2 % (11.5-14.5) H 06/15/18 03:28 Nucleated RBCs/100 WBC 0.3 /100 WBC (0) H 06/15/18 03:28 Toxic Granulation Present (Not Present) A 06/08/18 04:35 Large Platelets Present (Not Present) A 06/07/18 03:30 PT 13.2 Seconds (9.4-12.1) H 06/11/18 09:00 ABG pO2 105 mmHg (85-104) H 06/14/18 12:30 ABG HCO3 28 mEq/L (21-27) H 06/14/18 12:30 ABG Total CO2 29 mEq/L (20-26) H 06/14/18 12:30 Potassium 3.4 mEq/L (3.5-5.1) L 06/15/18 16:32 BUN 43 mg/dL (6-20) H 06/15/18 03:28 BUN/Creatinine Ratio 41 (6-26) H 06/15/18 03:28 Glucose 175 mg/dL (70-105) H 06/15/18 03:28 POC Glucose 143 mg/dL (70-99) H 06/14/18 23:55 Calculated Osmolality 309 (280-300) H 06/15/18 03:28 Phosphorus 5.2 mg/dL (2.7-4.5) H 06/15/18 03:28 Direct Bilirubin 0.3 mg/dL (0.0-0.2) H 06/12/18 03:20 Serum Total Protein 5.6 g/dL (6.4-8.9) L 06/12/18 03:20 Albumin 2.7 g/dL (3.5-5.7) L 06/12/18 03:20 Albumin/Globulin Ratio 0.9 (1.1-2.2) L 06/12/18 03:20 Triglycerides 341 mg/dL (< 150) H 06/10/18 03:14 Gastrin 117 pg/mL (0-100) H 06/03/18 21:23 Urine Clarity Cloudy (Clear) A 06/02/18 09:18 Urine Protein 100 mg/dL (Neg-Trace) H 06/02/18 09:18 Urine Blood Large (Negative) H 06/02/18 09:18 Ur Leukocyte Esterase Moderate (Negative) H 06/02/18 09:18 Urine Microscopic RBC TNTC per hpf (0-3) H 06/02/18 09:18 Urine Microscopic WBC 15-30 per hpf (0-3) H 06/02/18 09:18 Ur Squamous Epith Cells Many per lpf (None-Few) H 06/02/18 09:18 Ur Culture Indicated? NO. (NO) A 06/02/18 09:18 Enterobacteriac sp PCR DETECTED (Not Detect) A 06/02/18 09:18 E. coli (PCR) DETECTED (Not Detect) A 06/02/18 09:18 - Microbiology Findings Microbiology Findings: Microbiology, Last 48 Hours 06/12/18 12:28 Anaerobic Culture - Preliminary Aspirate At this time, no anaerobic growth is present. The culture will be finalized after 5 days of incubation. 06/12/18 12:28 Gram Stain - Final Aspirate 06/12/18 12:28 Wound Culture - Final Abdomen Escherichia coli 06/11/18 15:00 Sputum Culture - Final Aspirate Escherichia coli - Clinical Findings Intake & Output: Intake & Output 06/15/18 06/15/18 06/15/18 07:59 15:59 23:59 Intake Total 646.2 / 646.2 855.25 / 855.25 2619.9 / 2619.9 Output Total 320 / 320 1260 / 1260 1115 / 1115 Balance 326.2 / 326.2 -404.75 / -404.75 1504.9 / 1504.9 - Attending Attestation I saw and evaluated this patient and my medical decision-making was reviewed with the Resident Physician. I agree with the documented findings, disposition and treatment plan as described except to the extent set forth below. We independently had [id number] contact with the patient I spent 40 minutes of Critical Care time with this patient. It involved decision making of high complexity to assess, manipulate, and support vital organ system failure and/or to prevent further life threatening deterioration of the patient's condition. The time involved in the performance of separately reportable procedures was not counted toward critical care time. Patient seen and examined at bedside Labs, radiology, chart personally reviewed. Management was reviewed during multidisciplinary critical care rounds. ACQUISITIONS EDITOR:Patient still shows signs of toxic /metabolic encephalopathy so far the Neuro work up was negative . But he is more awake than before. Keep minimal sedation as tolerated. 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 Will daily attempt spontaneous breathing trial spoke extensively with the wants to give 2 more days. If he is failing she wants to proceed with tracheostomy. Cards: Is hemodynamically stable no evidence of septic shock for now. Patient QT interval is acceptable within limits FEN-GI: Nutrition as per dietary recommendations. Renal: As in output reviewed continued diuresis. ID: Broad-spectrum antibiotics according to infectious disease recommendations. Heme/Onc:. Thrombo-prophylaxis Endo: Glucose Monitored Integ/MSK: Skin Care per routine ICU Nursing Protocol to prevent ulcers. Lines: All lines examined without evidence of infection : Dispo: Critically ill CODE: Full Code
[2018-06-15] MEDS ORDERED: Haloperidol Lactate 5 MG/ML VIAL IVP ONE (07:28)
[2018-06-15] MEDS: Nystatin SUSP 5 ML UD.LIQ PO SCH ×4 (08:09→19:52)
[2018-06-15] MEDS: Chlorhexidine Rinse 15 ML MOUTHWASH MM SCH ×2 (08:09→19:52)
[2018-06-15] MEDS: Furosemide 40 MG/4 ML VIAL IVP SCH (08:10)
[2018-06-15] MEDS: Fluconazole 200 MG/100 ML 200 MG/100 ML BAG IVPB SCH (08:11)
[2018-06-15] MEDS: Piperacillin/Tazobactam 3.375 GM in 0.9 % Sodium Chloride Mini Bag 100 ML IVPB SCH ×3 (08:12→23:10)
[2018-06-15] MEDS: FentaNYL (PF) 2,500 MCG in EMPTY BAG 1 EACH IVC SCH (09:49)
--- NOTE | 2018-06-15 12:55 | General Surgery Progress Note ---
Date of Encounter: 06/15/18 Time of Encounter: 13:15 - Assessment and Plan (1) Perforated abdominal viscus Current Visit: No Status: Acute Still remain vented. Cx's with E. Coli. ID managing antiobiotics and Pulm/CC managing vent. Drains in place. Chronically ill, guarded prognosis. Subjective Patient reports: other (Still remains intubated with less sedation. Currently on a CPAP trial ) Objective Vital Signs - Last 8 Hours Temp Pulse Resp BP Pulse Ox 06/15/18 12:00 79 18 101/65 98 06/15/18 11:45 80 06/15/18 11:42 18 89/67 99 06/15/18 11:00 86 18 97/70 98 06/15/18 10:24 18 94/66 98 06/15/18 10:00 89 18 94/66 97 06/15/18 09:00 94 18 92/63 99 06/15/18 08:00 98.3 F 116 19 119/76 97 06/15/18 07:49 25 155/125 100 06/15/18 07:00 101 26 110/81 98 06/15/18 06:19 18 105/74 100 06/15/18 06:05 88 18 105/74 99 06/15/18 05:30 76 18 83/61 100 Intake and Output 06/14/18 06/15/18 06/15/18 23:59 07:59 15:59 Intake Total 350 / 350 646.2 / 646.2 490.85 / 490.85 Output Total 2130 / 2130 320 / 320 305 / 305 Balance -1780 / -1780 326.2 / 326.2 185.85 / 185.85 Intake: IV Fluids 350 / 350 646.2 / 646.2 490.85 / 490.85 PRECEDEX Premix 400 mcg In 100 100 / 100 156.2 / 156.2 43.8 / 43.8 ml @ 0.2 MCG/KG/HR 5.48 mls/hr IVC .[id number] [place] Rx#:[id number] FentaNYL (PF) 2,500 MCG In 50 / 50 40 / 40 18 / 18 Empty Bag 1 Each @ 50 MCG/HR 1 mls/hr IVC CONT [place] Rx#: [id number] HumuLIN R 250 UNIT In 0.9 % 160.0 / 160.0 15.05 / 15.05 Sodium Chloride 250 ML @ Titrate IVC CONT [facility] Rx#: [id number] Diprivan 1,000 mg In 100 ml @ 100 / 100 90 / 90 10 / 10 15 MCG/KG/MIN 10.233 mls/hr IVC .[id number] [facility] Rx#:[id number] Diflucan Premix 200 MG/100 ML 100 / 100 200 mg In 100 ml @ 100 mls/hr IVPB DAILY [facility] Rx#:[id number] Magnesium Sulfate 2 GM In 0.9 % 104 / 104 Sodium Chloride 100 ML @ 52 mls/hr IVPB Q6H [facility] Rx#: [id number] Zosyn 3.375 GM In 0.9 % Sodium 100 / 100 100 / 100 Chloride (Mini-Bag +) 100 ML @ 25 mls/hr IVPB Q8HR [facility] Rx#: [id number] Potassium Chloride 10 mEq/100mL 100 / 100 200 / 200 10 meq In 100 ml @ 100 mls/hr IVPB Q1H [facility] Rx#:[id number] Oral 0 / 0 Tube Feeding 0 / 0 Output: Catheter 1850 / 1850 200 / 200 200 / 200 Wound Drainage 280 / 280 120 / 120 105 / 105 Left Abdomen 0 / 0 0 / 0 0 / 0 Right Abdomen 170 / 170 80 / 80 70 / 70 Right Upper Abdomen 110 / 110 40 / 40 35 / 35 Other: Weight 100.8 kg Blood Glucose* 143 135 159 - General physical appearance well nourished, chronically ill - Neck Neck exam: trachea midline - Respiratory crackles: bilateral - Cardiovascular Cardiovascular exam: Present: tachycardia - Abdomen Abdomen: Present: distended (drains with some purlulence ) - Labs 06/15/18 03:28 06/15/18 03:28 Diabetes panel 06/15/18 Range/Units 03:28 Sodium 142 (136-145) mEq/L Potassium 3.2 L (3.5-5.1) mEq/L Chloride 106 (98-107) mEq/L Carbon Dioxide 24 (23-29) mEq/L BUN 43 H (6-20) mg/dL Creatinine 1.06 (0.70-1.30) mg/dL Glucose 175 H (70-105) mg/dL Calcium 9.5 (8.6-10.3) mg/dL Calcium panel 06/15/18 Range/Units 03:28 Calcium 9.5 (8.6-10.3) mg/dL Phosphorus 5.2 H (2.7-4.5) mg/dL Pituitary panel 06/15/18 Range/Units 03:28 Sodium 142 (136-145) mEq/L Potassium 3.2 L (3.5-5.1) mEq/L Chloride 106 (98-107) mEq/L Carbon Dioxide 24 (23-29) mEq/L BUN 43 H (6-20) mg/dL Creatinine 1.06 (0.70-1.30) mg/dL Glucose 175 H (70-105) mg/dL Calcium 9.5 (8.6-10.3) mg/dL Adrenal panel 06/15/18 Range/Units 03:28 Sodium 142 (136-145) mEq/L Potassium 3.2 L (3.5-5.1) mEq/L Chloride 106 (98-107) mEq/L Carbon Dioxide 24 (23-29) mEq/L BUN 43 H (6-20) mg/dL Creatinine 1.06 (0.70-1.30) mg/dL Glucose 175 H (70-105) mg/dL Calcium 9.5 (8.6-10.3) mg/dL - VTE Documentation of Mechanical Device: Intermittent pneumatic compression device Consult Discharge Plan - Plan Referrals: Zafar Hinton MD [Primary Care Provider] -
[2018-06-15] MEDS ORDERED: Scopolamine Patch 1.5 MG PATCH.TD72 TD SCH (14:30)
[2018-06-15] MEDS ORDERED: Clinimix E 5%-15% SOLUTION 2,000 ML, Parenteral Amino Acid 10% 200 ML with MVI, adult ... IVC SCH (17:00)
[2018-06-15 17:13] LABS: Potassium 3.4 mEq/L (3.5-5.1)
[2018-06-16] MEDS: Dexmedetomidine HCl 400 MCG/100 ML MLS IVC SCH ×4 (00:30→22:11)
[2018-06-16] MEDS: Artificial Tears SOLN 15 ML BOTTLE BOTH EYES SCH ×7 (03:13→22:39)
[2018-06-16 03:54] LABS: Basophils % 0.3 %; Eosinophils # 0.2 K/mcL (0.0-0.6); Eosinophils % 2.5 %; Hematocrit 23.7 % (37.5-50.1); Hemoglobin 7.3 g/dL (12.9-16.9); Immature Granulocytes % 1.8 % (0-4); Lymphocytes % 10.5 %; Mean Corpuscular HGB Conc 30.8 g/dL (31.6-35.5); Mean Corpuscular Volume 90.8 fL (83.0-100.0); Mean Platelet Volume 10.1 fL (9.4-12.4); Monocytes # 0.4 K/mcL (0.0-1.3); Monocytes % 4.4 %; Neutrophils # 7.3 K/mcL (1.6-8.9); Platelet Count 339 K/mcL (140-400); Red Blood Count 2.61 M/mcL (4.19-5.50); Red Cell Distribution Width 15.9 % (11.5-14.5); Segmented Neutrophils % 80.5 %
[2018-06-16] MEDS: FentaNYL (PF) 2,500 MCG in EMPTY BAG 1 EACH IVC SCH (04:17)
[2018-06-16 04:22] LABS: BUN/Creatinine Ratio 49 (6-26); Blood Urea Nitrogen 48 mg/dL (6-20); Calcium 9.4 mg/dL (8.6-10.3); Carbon Dioxide 23 mEq/L (23-29); Chloride 107 mEq/L (98-107); Glucose 187 mg/dL (70-105); Osmolality,Calculated 308 (280-300); Phosphorous 4.4 mg/dL (2.7-4.5); Potassium 3.7 mEq/L (3.5-5.1); Sodium 140 mEq/L (136-145); eGFR For Non-African Americans > 60 (> 60)
[2018-06-16 04:52] LABS: ABG Base Excess 1 mEq/L (-2 to 3); ABG HCO3 26 mEq/L (21-27); ABG Oxygen Saturation 97 % (95-98); ABG PCO2 45 mmHg (35-45); ABG PH 7.37 pH Units (7.32-7.45); ABG PO2 98 mmHg (85-104); ABG TCO2 28 mEq/L (20-26); Blood Gas PEEP 5 cm H2O
[2018-06-16] MEDS: *HR* Heparin 5,000 UNIT/ML VIAL SQ SCH ×3 (04:56→21:05)
[2018-06-16] MEDS: Pantoprazole 40 MG VIAL IVP SCH ×2 (04:56→16:25)
--- NOTE | 2018-06-16 06:28 | Pulmonology Progress Note ---
<StephanieKota W - Last Filed: 06/16/18 08:31> Date of Encounter: 06/16/18 Objective PUL Vital signs: Last Vital Signs Temp 98.7 F 06/16/18 04:00 Pulse 80 06/16/18 07:00 Resp 18 06/16/18 07:00 BP 106/72 06/16/18 07:00 Pulse Ox 100 06/16/18 07:00 Ventilator Settings Ventilator Settings: Ventilator Settings, Last 8 Hours Ventilator Tidal Volume 500 Setting Ventilator Tidal Volume 500 Setting Ventilator Tidal Volume 500 Setting Ventilator Tidal Volume 500 Setting Ventilator Tidal Volume 500 Setting Ventilator Tidal Volume 500 Setting Ventilator Tidal Volume 500 Setting Ventilator Tidal Volume 500 Setting Ventilator Tidal Volume 500 Setting Ventilator Tidal Volume 500 Setting Ventilator Respiratory Rate 18 Setting Ventilator Respiratory Rate 18 Setting Ventilator Respiratory Rate 18 Setting Ventilator Respiratory Rate 18 Setting Ventilator Respiratory Rate 18 Setting Ventilator Respiratory Rate 18 Setting Ventilator Respiratory Rate 18 Setting Ventilator Respiratory Rate 18 Setting Ventilator Respiratory Rate 18 Setting Ventilator Respiratory Rate 18 Setting Actual Respiratory Rate 20 Actual Respiratory Rate 22 Actual Respiratory Rate 22 Actual Respiratory Rate 18 Actual Respiratory Rate 22 Actual Respiratory Rate 22 Actual Respiratory Rate 22 Actual Respiratory Rate 22 Actual Respiratory Rate 21 Positive End Expiratory 5 Pressure Positive End Expiratory 5 Pressure Positive End Expiratory 5 Pressure Positive End Expiratory 5 Pressure Positive End Expiratory 5 Pressure Positive End Expiratory 5 Pressure Positive End Expiratory 5 Pressure Positive End Expiratory 5 Pressure Positive End Expiratory 5 Pressure Positive End Expiratory 5 Pressure Peak Inspiratory Airway 20 Pressure Peak Inspiratory Airway 21 Pressure Peak Inspiratory Airway 20 Pressure Peak Inspiratory Airway 18 Pressure Peak Inspiratory Airway 18 Pressure Peak Inspiratory Airway 16 Pressure Peak Inspiratory Airway 16 Pressure Peak Inspiratory Airway 10 Pressure Peak Inspiratory Airway 16 Pressure Results - Laboratory Findings CBC and BMP: 06/16/18 03:45 06/16/18 03:45 ABG ABG pH 7.37 pH Units (7.32-7.45) 06/16/18 04:34 ABG pCO2 45 mmHg (35-45) 06/16/18 04:34 ABG pO2 98 mmHg (85-104) 06/16/18 04:34 ABG O2 Saturation 97 % (95-98) 06/16/18 04:34 PT/INR, D-dimer PT 13.2 Seconds (9.4-12.1) H 06/11/18 09:00 Abnormal lab findings: Abnormal lab results RBC 2.61 M/mcL (4.19-5.50) L 06/16/18 03:45 Hgb 7.3 g/dL (12.9-16.9) L 06/16/18 03:45 Hct 23.7 % (37.5-50.1) L 06/16/18 03:45 MCHC 30.8 g/dL (31.6-35.5) L 06/16/18 03:45 RDW 15.9 % (11.5-14.5) H 06/16/18 03:45 Nucleated RBCs/100 WBC 0.3 /100 WBC (0) H 06/15/18 03:28 Toxic Granulation Present (Not Present) A 06/08/18 04:35 Large Platelets Present (Not Present) A 06/07/18 03:30 PT 13.2 Seconds (9.4-12.1) H 06/11/18 09:00 ABG Total CO2 28 mEq/L (20-26) H 06/16/18 04:34 BUN 48 mg/dL (6-20) H 06/16/18 03:45 BUN/Creatinine Ratio 49 (6-26) H 06/16/18 03:45 Glucose 187 mg/dL (70-105) H 06/16/18 03:45 POC Glucose 179 mg/dL (70-99) H 06/15/18 23:03 Calculated Osmolality 308 (280-300) H 06/16/18 03:45 Direct Bilirubin 0.3 mg/dL (0.0-0.2) H 06/12/18 03:20 Serum Total Protein 5.6 g/dL (6.4-8.9) L 06/12/18 03:20 Albumin 2.7 g/dL (3.5-5.7) L 06/12/18 03:20 Albumin/Globulin Ratio 0.9 (1.1-2.2) L 06/12/18 03:20 Triglycerides 341 mg/dL (< 150) H 06/10/18 03:14 Gastrin 117 pg/mL (0-100) H 06/03/18 21:23 Urine Clarity Cloudy (Clear) A 06/02/18 09:18 Urine Protein 100 mg/dL (Neg-Trace) H 06/02/18 09:18 Urine Blood Large (Negative) H 06/02/18 09:18 Ur Leukocyte Esterase Moderate (Negative) H 06/02/18 09:18 Urine Microscopic RBC TNTC per hpf (0-3) H 06/02/18 09:18 Urine Microscopic WBC 15-30 per hpf (0-3) H 06/02/18 09:18 Ur Squamous Epith Cells Many per lpf (None-Few) H 06/02/18 09:18 Ur Culture Indicated? NO. (NO) A 06/02/18 09:18 Enterobacteriac sp PCR DETECTED (Not Detect) A 06/02/18 09:18 E. coli (PCR) DETECTED (Not Detect) A 06/02/18 09:18 - Microbiology Findings Microbiology Findings: Microbiology, Last 48 Hours 06/12/18 12:28 Anaerobic Culture - Preliminary Aspirate At this time, no anaerobic growth is present. The culture will be finalized after 5 days of incubation. 06/12/18 12:28 Gram Stain - Final Aspirate 06/12/18 12:28 Wound Culture - Final Abdomen Escherichia coli 06/11/18 15:00 Sputum Culture - Final Aspirate Escherichia coli - Clinical Findings Intake & Output: Intake & Output 06/15/18 06/16/1818 23:59 07:59 15:59 Intake Total 2725.9 / 2725.9 720.8 / 720.8 Output Total 1115 / 1115 775 / 775 Balance 1610.9 / 1610.9 -54.2 / -54.2 Weight 105.9 kg Consult Discharge Plan - Plan Referrals: Zafar Hinton MD [Primary Care Provider] - - Attending Attestation I examined this patient and my medical decision-making was reviewed with the Resident Physician. I agree with the documented findings, disposition and treatment plan as described except to the extent set forth below. We independently had [id number] contact with the patient I spent 34min of Critical Care time with this patient. It involved decision making of high complexity to assess, manipulate, and support vital organ system failure and/or to prevent further life threatening deterioration of the patient' s condition. The time involved in the performance of separately reportable procedures was not counted toward critical care time. Patient seen and examined at bedside Labs, radiology, chart personally reviewed. Management was reviewed during multidisciplinary critical care rounds. [employer]: Patient remains encephalopathic but able to follow some simple commands. 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 Copious secretions which have improved with addition of scopolamine patch Cards: Blood pressure monitored and stable GI: He has perforated viscus secondary to gastric/duodenal ulceration complicated by intra-abdominal abscess with the external drain placement appreciate general surgery interventional radiology evaluation of this patient general surgery following for the postsurgical management Nutrition: Continue TPN per dietary recommendations Renal: UOP Monitored, Cont to Trend sCr and monitor Electrolytes. ID: He has Escherichia coli pneumonia and intra-abdominal infection unfortunately infection has developed intermediate resistant to Zosyn will likely need to switch to additional treatment per ID recommendations today Heme/Onc: DVT prophylaxis given Endo: Glucose Monitored Integ/MSK: Skin Care per routine ICU Nursing Protocol to prevent ulcers. Lines: All lines examined without evidence of infection : Dispo: Remain in ICU CODE: Full <Nathaniel Kumar Steven - Last Filed: 06/16/18 10:54> Date of Encounter: 06/16/18 Time of Encounter: 06:40 Assessment and Plan (1) Septic shock due to Escherichia coli Current Visit: Yes Status: Acute Most likely 2/2 intraabdominal abscess with purulant fluid collections. 1/2 initial blood cultures pos E coli. Initial body fluid culture pos E coli. Remains intubated and sedated. Off propofol now. Precedex weaning now with haldol on board. Encephalopathy continues to improve, neuro evaluated and signed off, arousable to voice today, following commands, squeezed hands and moved toes. Likely metabolic. EEG showed generalized slowing, MRI brain without any acute abnormality. IR drained abdominal abscess grew E coli, intermediate to zosyn. WBC 9.1 today, afebrile, hemodynamics stable. Sputum culture pos for Ecoli. Repeat blood cultures ngtd. Continue zosyn and diflucan today (day 15 of both and day 13 since last pos blood culture). ID on board will manage abx changes. Have discussed possibility of tracheostomy with family given this is day 15 on vent and they would like to think it over and see if he progresses next couple days before proceeding. SBT again this afternoon when family present. (2) Pneumonia due to E. coli Current Visit: Yes Status: Acute Sputum culture pos for E coli 06/11/18. Small bilateral lower lung consolidation on chest CT 06/11/18. Likely same bacteria as other pos cultures. WBC 9 today, afebrile, lactic 1.1 most recent. Has had secretions throughout time on vent. Improved with scopolamine patch yesterday. Day 15 of zosyn which the sputum sensitive too but abdominal wound E coli intermediate to zosyn. ID managing abx and likely change today. Qualifiers: Laterality: bilateral Lung location: lower lobe of lung Qualified Code(s) : J15.5 - Pneumonia due to Escherichia coli (3) Bacteremia due to Gram-negative bacteria Current Visit: Yes Status: Acute Initial blood culture pos for E coli 1/2. sensitive to pip/tazo which he is on, resistant to ampicillin, amp/sulbactam. ID on board. Repeat cultures no growth. Will continue current abx, deescalate as able. Repeat bc ngtd. Abdominal wound drainage and sputum culture pos for E coli, abdominal culture intermediate to zosyn. (4) Acute on chronic renal failure Current Visit: Yes Status: Resolved Resolved. Cr 0.97 today. Electrolytes stable. Good uop. Will avoid nephrotoxins , and monitor electrolytes replacing as needed. Qualifiers: Acute renal failure type: unspecified Chronic kidney disease stage: unspecified stage Qualified Code(s): N17.9 - Acute kidney failure, unspecified ; N18.9 - Chronic kidney disease, unspecified (5) Perforated viscus Current Visit: Yes Status: Acute S/p exlap, washout, [id number]. Surg following. Repeat wound cultures grew E coli , intermediate to zosyn. (6) Lactic acidosis Current Visit: Yes Status: Acute Resolved. Lactic had high of 5.1, Latest 1.1. (7) Anemia Current Visit: Yes Status: Acute Hgb 7.2 this morning, Stable in 7's since PRBC infusion. Qualifiers: Anemia type: other cause Other causes of anemia: other cause, not classified Qualified Code(s): D64.89 - Other specified anemias (8) Diabetes Current Visit: Yes Status: Chronic Hx of DM. On TPN, glucose stable since insulin infusion. Continue infusion for now. 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 Treated with outpatient abx with ID. On contact precautions. (10) Obesity (BMI 30.0-34.9) Current Visit: Yes Status: Chronic BMI 34.6. Will recommend lifestyle modifications upon dc. (11) DVT prophylaxis Current Visit: Yes Status: Acute Heparin prophylaxis Subjective Principal diagnosis: Septic shock Interval history: No acute events overnight. Intubated and sedated. CPAP overnight trialed. Afebrile overnight. Continues to be arousable and follows commands today. 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) Ventilator Settings Ventilator Settings: Ventilator Settings, Last 8 Hours Ventilator Tidal Volume 500 Setting Ventilator Tidal Volume 500 Setting Ventilator Tidal Volume 500 Setting Ventilator Tidal Volume 500 Setting Ventilator Tidal Volume 500 Setting Ventilator Tidal Volume 500 Setting Ventilator Tidal Volume 500 Setting Ventilator Tidal Volume 500 Setting Ventilator Tidal Volume 500 Setting Ventilator Tidal Volume 500 Setting Ventilator Tidal Volume 500 Setting Ventilator Tidal Volume 500 Setting Ventilator Tidal Volume 500 Setting Ventilator Tidal Volume 500 Setting Ventilator Respiratory Rate 18 Setting Ventilator Respiratory Rate 18 Setting Ventilator Respiratory Rate 18 Setting Ventilator Respiratory Rate 18 Setting Ventilator Respiratory Rate 18 Setting Ventilator Respiratory Rate 18 Setting Ventilator Respiratory Rate 18 Setting Ventilator Respiratory Rate 18 Setting Ventilator Respiratory Rate 18 Setting Ventilator Respiratory Rate 18 Setting Ventilator Respiratory Rate 18 Setting Ventilator Respiratory Rate 18 Setting Ventilator Respiratory Rate 18 Setting Ventilator Respiratory Rate 18 Setting Actual Respiratory Rate 20 Actual Respiratory Rate 22 Actual Respiratory Rate 22 Actual Respiratory Rate 18 Actual Respiratory Rate 22 Actual Respiratory Rate 22 Actual Respiratory Rate 22 Actual Respiratory Rate 22 Actual Respiratory Rate 21 Actual Respiratory Rate 21 Actual Respiratory Rate 22 Actual Respiratory Rate 22 Actual Respiratory Rate 22 Positive End Expiratory 5 Pressure Positive End Expiratory 5 Pressure Positive End Expiratory 5 Pressure Positive End Expiratory 5 Pressure Positive End Expiratory 5 Pressure Positive End Expiratory 5 Pressure Positive End Expiratory 5 Pressure Positive End Expiratory 5 Pressure Positive End Expiratory 5 Pressure Positive End Expiratory 5 Pressure Positive End Expiratory 5 Pressure Positive End Expiratory 5 Pressure Positive End Expiratory 5 Pressure Positive End Expiratory 5 Pressure Peak Inspiratory Airway 20 Pressure Peak Inspiratory Airway 21 Pressure Peak Inspiratory Airway 20 Pressure Peak Inspiratory Airway 18 Pressure Peak Inspiratory Airway 18 Pressure Peak Inspiratory Airway 16 Pressure Peak Inspiratory Airway 16 Pressure Peak Inspiratory Airway 10 Pressure Peak Inspiratory Airway 16 Pressure Peak Inspiratory Airway 16 Pressure Peak Inspiratory Airway 16 Pressure Peak Inspiratory Airway 16 Pressure Peak Inspiratory Airway 18 Pressure Results - Laboratory Findings CBC and BMP: 06/16/18 03:45 06/16/18 03:45 ABG ABG pH 7.37 pH Units (7.32-7.45) 06/16/18 04:34 ABG pCO2 45 mmHg (35-45) 06/16/18 04:34 ABG pO2 98 mmHg (85-104) 06/16/18 04:34 ABG O2 Saturation 97 % (95-98) 06/16/18 04:34 PT/INR, D-dimer PT 13.2 Seconds (9.4-12.1) H 06/11/18 09:00 Abnormal lab findings: Abnormal lab results RBC 2.61 M/mcL (4.19-5.50) L 06/16/18 03:45 Hgb 7.3 g/dL (12.9-16.9) L 06/16/18 03:45 Hct 23.7 % (37.5-50.1) L 06/16/18 03:45 MCHC 30.8 g/dL (31.6-35.5) L 06/16/18 03:45 RDW 15.9 % (11.5-14.5) H 06/16/18 03:45 Nucleated RBCs/100 WBC 0.3 /100 WBC (0) H 06/15/18 03:28 Toxic Granulation Present (Not Present) A 06/08/18 04:35 Large Platelets Present (Not Present) A 06/07/18 03:30 PT 13.2 Seconds (9.4-12.1) H 06/11/18 09:00 ABG Total CO2 28 mEq/L (20-26) H 06/16/18 04:34 BUN 48 mg/dL (6-20) H 06/16/18 03:45 BUN/Creatinine Ratio 49 (6-26) H 06/16/18 03:45 Glucose 187 mg/dL (70-105) H 06/16/18 03:45 POC Glucose 179 mg/dL (70-99) H 06/15/18 23:03 Calculated Osmolality 308 (280-300) H 06/16/18 03:45 Direct Bilirubin 0.3 mg/dL (0.0-0.2) H 06/12/18 03:20 Serum Total Protein 5.6 g/dL (6.4-8.9) L 06/12/18 03:20 Albumin 2.7 g/dL (3.5-5.7) L 06/12/18 03:20 Albumin/Globulin Ratio 0.9 (1.1-2.2) L 06/12/18 03:20 Triglycerides 341 mg/dL (< 150) H 06/10/18 03:14 Gastrin 117 pg/mL (0-100) H 06/03/18 21:23 Urine Clarity Cloudy (Clear) A 06/02/18 09:18 Urine Protein 100 mg/dL (Neg-Trace) H 06/02/18 09:18 Urine Blood Large (Negative) H 06/02/18 09:18 Ur Leukocyte Esterase Moderate (Negative) H 06/02/18 09:18 Urine Microscopic RBC TNTC per hpf (0-3) H 06/02/18 09:18 Urine Microscopic WBC 15-30 per hpf (0-3) H 06/02/18 09:18 Ur Squamous Epith Cells Many per lpf (None-Few) H 06/02/18 09:18 Ur Culture Indicated? NO. (NO) A 06/02/18 09:18 Enterobacteriac sp PCR DETECTED (Not Detect) A 06/02/18 09:18 E. coli (PCR) DETECTED (Not Detect) A 06/02/18 09:18 - Microbiology Findings Microbiology Findings: Microbiology, Last 48 Hours 06/12/18 12:28 Anaerobic Culture - Preliminary Aspirate At this time, no anaerobic growth is present. The culture will be finalized after 5 days of incubation. 06/12/18 12:28 Gram Stain - Final Aspirate 06/12/18 12:28 Wound Culture - Final Abdomen Escherichia coli 06/11/18 15:00 Sputum Culture - Final Aspirate Escherichia coli - Clinical Findings Intake & Output: Intake & Output 06/15/18 06/15/18 06/16/18 15:59 23:59 07:59 Intake Total 855.25 / 855.25 2725.9 / 2725.9 520.8 / 520.8 Output Total 1260 / 1260 1115 / 1115 775 / 775 Balance -404.75 / -404.75 1610.9 / 1610.9 -254.2 / -254.2 Weight 105.9 kg - VTE Documentation of Mechanical Device: Intermittent pneumatic compression device
--- NOTE | 2018-06-16 07:28 | General Surgery Progress Note ---
<Pedro Ocasio - Last Filed: 06/16/18 08:34> Date of Encounter: 06/16/18 Time of Encounter: 07:26 - Assessment and Plan (1) Perforated abdominal viscus Current Visit: No Status: Acute POD #11 s/p exploratory laparotomy, antrectomy, gerri en Y reconstruction with Drs. Serrano and Mary on 06/05/2018 Sedation weaned, remains intubated, has been trialing CPAP Patient more alert and follows commands Plan: CCU care and medical management Have been attempting to wean, CCU and Dr. Serrano to discuss possibility of tracheostomy with family Continue TPN PPI/ dvt prophylaxis Comfort care and pain management Wound care daily Monitor drain and NG output (2) Diabetes Current Visit: Yes Status: Chronic Continue poc measurements and insulin as needed for glycemic control (3) Bacteremia due to Gram-negative bacteria Current Visit: Yes Status: Acute Initial blood cultures positive for ecoli 06/11 sputum culture- ecoli 06/11 blood cultures pending 06/12 intra-abdominal abscess cultures- e-coli, intermediate sensitivity to Zosyn On Zosyn and fluconazole Infectious diseases is following, treatment per their recommendations. (4) Anemia Current Visit: Yes Status: Acute Hemoglobin 7.3 this am Has been stable near this level since transfusion on 06/07 Would recommend transfusion to a hemoglobin of at least 8, ideally 9 (5) Acute on chronic renal failure Current Visit: Yes Status: Resolved Resolved, Ucr 0.97 today Avoid nephrotoxic agents Subjective Narrative: No acute events overnight. Patient remains intubated and sedated. Objective Vital Signs - Last 8 Hours Temp Pulse Resp BP Pulse Ox 06/16/18 05:57 89 20 92/62 100 06/16/18 05:02 22 99 06/16/18 05:00 73 22 95/66 99 06/16/18 04:00 98.7 F 68 18 82/56 99 06/16/18 03:25 20 128/79 99 06/16/18 03:08 75 06/16/18 03:00 75 20 128/79 100 06/16/18 01:59 81 20 91/63 100 06/16/18 01:11 22 111/81 96 06/16/18 01:00 75 20 111/81 100 06/16/18 00:07 99.3 F 06/16/18 00:00 89 21 93/64 100 Intake and Output 06/15/18 06/15/18 06/16/18 15:59 23:59 07:59 Intake Total 855.25 / 855.25 2725.9 / 2725.9 620.8 / 620.8 Output Total 1260 / 1260 1115 / 1115 775 / 775 Balance -404.75 / -404.75 1610.9 / 1610.9 -154.2 / -154.2 Intake: IV Fluids 855.25 / 855.25 625.9 / 625.9 620.8 / 620.8 PRECEDEX Premix 400 mcg In 100 143.8 / 143.8 100 / 100 200 / 200 ml @ 0.2 MCG/KG/HR 5.48 mls/hr IVC .[id number] [facility] Rx#:[id number] FentaNYL (PF) 2,500 MCG In 24 / 24 0 / 0 36 / 36 Empty Bag 1 Each @ 50 MCG/HR 1 mls/hr IVC CONT [facility] Rx#: [id number] HumuLIN R 250 UNIT In 0.9 % 33.45 / 33.45 25.9 / 25.9 24.8 / 24.8 Sodium Chloride 250 ML @ Titrate IVC CONT [facility] Rx#: [id number] Diprivan 1,000 mg In 100 ml @ 50 / 50 0 / 0 60 / 60 15 MCG/KG/MIN 10.233 mls/hr IVC .[id number] [facility] Rx#:[id number] Diflucan Premix 200 MG/100 ML 100 / 100 200 mg In 100 ml @ 100 mls/hr IVPB DAILY [facility] Rx#:[id number] Magnesium Sulfate 2 GM In 0.9 % 104 / 104 Sodium Chloride 100 ML @ 52 mls/hr IVPB Q6H PRN Rx#: [id number] Zosyn 3.375 GM In 0.9 % Sodium 100 / 100 100 / 100 100 / 100 Chloride (Mini-Bag +) 100 ML @ 25 mls/hr IVPB Q8HR [facility] Rx#: [id number] Potassium Chloride 10 mEq/100mL 300 / 300 400 / 400 200 / 200 10 meq In 100 ml @ 100 mls/hr IVPB Q1H PRN Rx#:[id number] Oral 0 / 0 0 / 0 Other 2100 / 2100 Output: Catheter 1050 / 1050 950 / 950 600 / 600 Gastric Drainage 0 / 0 0 / 0 Wound Drainage 210 / 210 165 / 165 175 / 175 Left Abdomen 0 / 0 0 / 0 0 / 0 Right Abdomen 145 / 145 120 / 120 135 / 135 Right Upper Abdomen 65 / 65 45 / 45 40 / 40 Other: Weight 105.9 kg Blood Glucose* 160 179 200 Patient Weight 06/16/18 23:59 Weight 105.9 kg - General physical appearance no distress, chronically ill - Eyes PERRL - ENT normal mucosa, atraumatic, normocephalic - Neck Neck exam: trachea midline, no venous distension - Respiratory normal expansion - Cardiovascular Cardiovascular exam: Present: RRR - Abdomen Abdomen: Present: bowel sounds present, soft, wound (SARBJIT right with 150 mL bilious/brown last 8 hrs. SARBJIT upper right 60 mL bilious/brown last 8 hrs. Left SARBJIT 5 mL serous). Absent: distended, guarding - Incision Incision: Present: clean and dry (incision with packing in place between guille ) - Integumentary no rash - Neurologic other (intubated, sedated will follow commands ) - Musculoskeletal other (unable to assess) - Psychiatric other (unable to assess) - Labs 06/16/18 03:45 06/16/18 03:45 Diabetes panel 06/15/18 06/16/18 Range/Units 16:32 03:45 Sodium 140 (136-145) mEq/L Potassium 3.4 L 3.7 (3.5-5.1) mEq/L Chloride 107 (98-107) mEq/L Carbon Dioxide 23 (23-29) mEq/L BUN 48 H (6-20) mg/dL Creatinine 0.97 (0.70-1.30) mg/dL Glucose 187 H (70-105) mg/dL Calcium 9.4 (8.6-10.3) mg/dL Calcium panel 06/16/18 Range/Units 03:45 Calcium 9.4 (8.6-10.3) mg/dL Phosphorus 4.4 (2.7-4.5) mg/dL Pituitary panel 06/15/18 06/16/18 Range/Units 16:32 03:45 Sodium 140 (136-145) mEq/L Potassium 3.4 L 3.7 (3.5-5.1) mEq/L Chloride 107 (98-107) mEq/L Carbon Dioxide 23 (23-29) mEq/L BUN 48 H (6-20) mg/dL Creatinine 0.97 (0.70-1.30) mg/dL Glucose 187 H (70-105) mg/dL Calcium 9.4 (8.6-10.3) mg/dL Adrenal panel 06/15/18 06/16/18 Range/Units 16:32 03:45 Sodium 140 (136-145) mEq/L Potassium 3.4 L 3.7 (3.5-5.1) mEq/L Chloride 107 (98-107) mEq/L Carbon Dioxide 23 (23-29) mEq/L BUN 48 H (6-20) mg/dL Creatinine 0.97 (0.70-1.30) mg/dL Glucose 187 H (70-105) mg/dL Calcium 9.4 (8.6-10.3) mg/dL - VTE Documentation of Mechanical Device: Intermittent pneumatic compression device Consult Discharge Plan - Plan Referrals: Zafar Hinton MD [Primary Care Provider] - <Benedict Serrano - Last Filed: 06/17/18 07:36> Date of Encounter: 06/16/18 Time of Encounter: 13:00 - Assessment and Plan (1) Peritonitis Current Visit: Yes Status: Acute Objective Vital Signs - Last 8 Hours Temp Pulse Resp BP Pulse Ox 06/17/18 06:00 114 18 132/86 99 06/17/18 05:00 147 24 127/105 100 06/17/18 04:00 98.5 F 105 16 119/84 100 06/17/18 03:00 105 18 143/79 100 06/17/18 02:00 113 14 118/69 100 06/17/18 01:00 115 16 145/88 100 06/17/18 00:00 103 17 124/78 100 06/16/18 23:51 99.3 F Intake and Output 06/16/18 06/16/18 06/17/18 15:59 23:59 07:59 Intake Total 598.15 / 598.15 215.7 / 215.7 450 / 450 Output Total 2250 / 2250 815 / 815 305 / 305 Balance -1651.85 / -1651.85 -599.3 / -599.3 145 / 145 Intake: IV Fluids 598.15 / 598.15 215.7 / 215.7 450 / 450 PRECEDEX Premix 400 mcg In 100 194.3 / 194.3 5.7 / 5.7 100 / 100 ml @ 0.2 MCG/KG/HR 5.48 mls/hr IVC .[id number] [facility] Rx#:[id number] FentaNYL (PF) 2,500 MCG In 10 / 10 Empty Bag 1 Each @ 50 MCG/HR 1 mls/hr IVC CONT [facility] Rx#: [id number] HumuLIN R 250 UNIT In 0.9 % 103.85 / 103.85 0 / 0 Sodium Chloride 250 ML @ Titrate IVC CONT [facility] Rx#: [id number] Intralipid 20% 250 ML @ 21 mls/ 250 / 250 hr IVPB [id number] [facility] Rx#: [id number] Diflucan Premix 200 MG/100 ML 100 / 100 200 mg In 100 ml @ 100 mls/hr IVPB DAILY [facility] Rx#:[id number] Flagyl Premix 500 MG/100 ML 500 100 / 100 100 / 100 mg In 100 ml @ 100 mls/hr IVPB Q8HR [facility] Rx#:[id number] Zosyn 3.375 GM In 0.9 % Sodium 100 / 100 Chloride (Mini-Bag +) 100 ML @ 25 mls/hr IVPB Q8HR [facility] Rx#: [id number] Potassium Chloride 10 mEq/100mL 100 / 100 10 meq In 100 ml @ 100 mls/hr IVPB Q1H PRN Rx#:[id number] Rocephin 2,000 MG In 0.9 % 100 / 100 Sodium Chloride (Mini-Bag +) 100 ML @ 200 mls/hr IVPB Q24H [facility] Rx#:[id number] Output: Emesis 50 / 50 Catheter 2100 / 2100 625 / 625 225 / 225 Gastric Drainage 30 / 30 Wound Drainage 150 / 150 140 / 140 50 / 50 Left Abdomen 0 / 0 0 / 0 0 / 0 Right Abdomen 120 / 120 60 / 60 40 / 40 Right Upper Abdomen 30 / 30 80 / 80 10 / 10 Other: Weight 103.6 kg Blood Glucose* 194 192 184 - Labs 06/17/18 04:39 06/17/18 04:39 Diabetes panel 06/17/18 Range/Units 04:39 Sodium 141 (136-145) mEq/L Potassium 3.4 L (3.5-5.1) mEq/L Chloride 108 H (98-107) mEq/L Carbon Dioxide 24 (23-29) mEq/L BUN 40 H (6-20) mg/dL Creatinine 0.83 (0.70-1.30) mg/dL Glucose 199 H (70-105) mg/dL Calcium 9.9 (8.6-10.3) mg/dL Calcium panel 06/17/18 Range/Units 04:39 Calcium 9.9 (8.6-10.3) mg/dL Phosphorus 3.5 (2.7-4.5) mg/dL Pituitary panel 06/17/18 Range/Units 04:39 Sodium 141 (136-145) mEq/L Potassium 3.4 L (3.5-5.1) mEq/L Chloride 108 H (98-107) mEq/L Carbon Dioxide 24 (23-29) mEq/L BUN 40 H (6-20) mg/dL Creatinine 0.83 (0.70-1.30) mg/dL Glucose 199 H (70-105) mg/dL Calcium 9.9 (8.6-10.3) mg/dL Adrenal panel 06/17/18 Range/Units 04:39 Sodium 141 (136-145) mEq/L Potassium 3.4 L (3.5-5.1) mEq/L Chloride 108 H (98-107) mEq/L Carbon Dioxide 24 (23-29) mEq/L BUN 40 H (6-20) mg/dL Creatinine 0.83 (0.70-1.30) mg/dL Glucose 199 H (70-105) mg/dL Calcium 9.9 (8.6-10.3) mg/dL - Attending Attestation patient seen and examined; i have reviewed all labs, imaging, and pertinent notes; i agree with the above assessment and plan and wish to add the following... patient extubated midafternoon on 06/16; monitor overnight; possible trach on 06/17 if he fails extubation;
[2018-06-16] MEDS: Piperacillin/Tazobactam 3.375 GM in 0.9 % Sodium Chloride Mini Bag 100 ML IVPB SCH (07:50)
[2018-06-16] MEDS: Furosemide 40 MG/4 ML VIAL IVP SCH (07:50)
[2018-06-16] MEDS: Chlorhexidine Rinse 15 ML MOUTHWASH MM SCH ×2 (07:51→21:05)
[2018-06-16] MEDS: Nystatin SUSP 5 ML UD.LIQ PO SCH ×4 (07:51→21:05)
[2018-06-16] MEDS: Fluconazole 200 MG/100 ML 200 MG/100 ML BAG IVPB SCH (07:51)
--- NOTE | 2018-06-16 09:34 | Infectious Disease Progress No ---
Date of Encounter: 06/16/18 Time of Encounter: 08:40 - Assessment and Plan (1) Severe sepsis Current Visit: Yes Status: Acute The patient had 3 sepsis criteria on admission. Likely secondary to bacteremia and intra-abdominal abscess and new intra- abdominal phlegmon. Improved. Afebrile x 24 hours. Tachycardia has resolved. Blood cultures obtained 06/02/18 her +1 out of 2 sets for Escherichia coli. Repeat blood cultures drawn 06/04/18 are negative 2 sets. Repeat blood cultures drawn 06/06/18 are negative x 2 sets. Repeat blood cultures 2 sets drawn 06/11/18 are NGTD. Repeat sputum culture positive for E. coli. CT abdomen and pelvis shows phlegmon in the RUQ. Status post CT-guided drain placement 06/12/18. CT chest shows likely atelectasis. (2) Bacteremia due to Gram-negative bacteria Current Visit: Yes Status: Acute Causative organism: Escherichia coli per PCR. Source likely intra-abdominal abscess. Blood cultures obtained 06/02/18 are +1 out of 2 sets for Escherichia coli. Repeat blood cultures 06/04/18 are negative 2 sets. Repeat blood cultures 06/06/18 are negative x 2 sets. Repeat blood cultures 2 sets drawn 06/11/18 are negative. Discontinue Zosyn. Start Rocephin 2 grams IV daily. Duration of treatment depends on the clinical picture. Monitor renal function and a productive toxicity and dose adjust antibiotics. (3) Intra-abdominal abscess Current Visit: No Status: Acute Likely secondary to perforated viscus. Causative organism E. coli. POD #14 Status post exploratory laparotomy, drainage of intra-abdominal abscess 06/02/[address] Maria. Operative note was reviewed. Gross purulence noted and dropped, but no succus, bile, or staining was seen in the abdominal cavity. CT of the abdomen and pelvis 06/11/18 showed findings consistent with phlegmon in the RUQ. Status post CT-guided drain placement 06/12/18. Purulent drainage noted in the SARBJIT drain at this time. Cultures are positive for E. coli, intermediate to Zosyn. Discontinue Zosyn. Start Rocephin 2 grams IV daily. Start flagyl 500mg IV TID. Continue fluconazole 200mg IV daily. Dose-adjust antibiotics based on creatinine clearance. Duration of treatment depends on the clinical picture. Wound care and activity restrictions per the surgery team. (4) Perforated abdominal viscus Current Visit: No Status: Acute Initially was thought to likely be secondary to NSAID use. Concern that this perforation may be secondary to the patch they placed previously was laying under pocket of pus which kept irritating it and cause perforation again. POD #11 status post exp lap with antrectomy, closure of duodenal stump, and Dagoberto en Y. No evidence of perforation noted on most recent imaging. Discontinue Zosyn and start Rocephin/flagyl as above. Continue fluconazole 200 mg IV daily. Duration of treatment depends on the clinical picture. Monitor renal and liver function and dose-adjust antibiotics. (5) Acute on chronic renal failure Current Visit: Yes Status: Resolved Likely secondary to severe sepsis. Improved. Continue to trend. Dose adjust antibiotics based on creatinine clearance. Avoid nephrotoxins as able. Qualifiers: Acute renal failure type: unspecified Chronic kidney disease stage: unspecified stage Qualified Code(s): N17.9 - Acute kidney failure, unspecified ; N18.9 - Chronic kidney disease, unspecified (6) Pneumoperitoneum Current Visit: Yes Status: Acute Secondary to perforated viscus. Further management per the general surgery team. (7) Allergy to multiple antibiotics Current Visit: Yes Status: Acute (8) VRE (vancomycin-resistant Enterococci) Current Visit: No Status: Inactive Patient has a history of VRE in the urine. Continue contact precautions per hospital protocol. (9) Venous thromboembolism Current Visit: Yes Status: Acute DVT study showed a chronic venous thrombosis in the right lesser saphenous vein. Anticoagulation per the primary team. (10) Encephalopathy Current Visit: Yes Status: Acute Etiology unclear. Improved. Patient wakes up and follows some commands. MRI of the brain negative. EEG showed slowing consistent with toxic metabolic encephalopathy. - Subjective Interval history: Patient seen and examined with nursing at bedside. Weekend notes reviewed. Patient remains intubated and sedated. Did well with SBT on Saturday, but failed yesterday. Planning to re-trial this afternoon when his is here. Patient is awake, alert, and follows commands. Denies pain, shortness of breath , or nausea. No new issues per nursing. Infect Dis PN-Objective Data - Labs CBC & Chem 7: 06/17/18 04:39 06/17/18 04:39 Labs: Laboratory Results - last 24 hr 06/15/18 06/15/18 06/15/18 00:58 02:24 03:23 WBC RBC Hgb Hct MCV MCH MCHC RDW Plt Count MPV Immature Gran % Seg Neutrophils % Lymphocytes % Monocytes % Eosinophils % Basophils % Neutrophils # Lymphocytes # Monocytes # Eosinophils # Basophils # Sample Site ABG pH ABG pCO2 ABG pO2 ABG HCO3 ABG Total CO2 ABG O2 Saturation ABG Base Excess Jaun Test O2 Delivery Device Inspired O2 PEEP Sodium Potassium Chloride Carbon Dioxide BUN Creatinine Est GFR ( Amer) Est GFR (Non-Af Amer) BUN/Creatinine Ratio Glucose POC Glucose 139 H 143 H 170 H Calculated Osmolality Calcium Phosphorus Magnesium 06/15/18 06/15/18 06/15/18 04:23 05:31 06:45 WBC RBC Hgb Hct MCV MCH MCHC RDW Plt Count MPV Immature Gran % Seg Neutrophils % Lymphocytes % Monocytes % Eosinophils % Basophils % Neutrophils # Lymphocytes # Monocytes # Eosinophils # Basophils # Sample Site ABG pH ABG pCO2 ABG pO2 ABG HCO3 ABG Total CO2 ABG O2 Saturation ABG Base Excess Jaun Test O2 Delivery Device Inspired O2 PEEP Sodium Potassium Chloride Carbon Dioxide BUN Creatinine Est GFR ( Amer) Est GFR (Non-Af Amer) BUN/Creatinine Ratio Glucose POC Glucose 180 H 174 H 133 H Calculated Osmolality Calcium Phosphorus Magnesium 06/15/18 06/15/18 06/15/18 07:33 08:30 09:47 WBC RBC Hgb Hct MCV MCH MCHC RDW Plt Count MPV Immature Gran % Seg Neutrophils % Lymphocytes % Monocytes % Eosinophils % Basophils % Neutrophils # Lymphocytes # Monocytes # Eosinophils # Basophils # Sample Site ABG pH ABG pCO2 ABG pO2 ABG HCO3 ABG Total CO2 ABG O2 Saturation ABG Base Excess Jaun Test O2 Delivery Device Inspired O2 PEEP Sodium Potassium Chloride Carbon Dioxide BUN Creatinine Est GFR ( Amer) Est GFR (Non-Af Amer) BUN/Creatinine Ratio Glucose POC Glucose 135 H 150 H 136 H Calculated Osmolality Calcium Phosphorus Magnesium 06/15/18 06/15/18 06/15/18 11:05 11:58 13:06 WBC RBC Hgb Hct MCV MCH MCHC RDW Plt Count MPV Immature Gran % Seg Neutrophils % Lymphocytes % Monocytes % Eosinophils % Basophils % Neutrophils # Lymphocytes # Monocytes # Eosinophils # Basophils # Sample Site ABG pH ABG pCO2 ABG pO2 ABG HCO3 ABG Total CO2 ABG O2 Saturation ABG Base Excess Jaun Test O2 Delivery Device Inspired O2 PEEP Sodium Potassium Chloride Carbon Dioxide BUN Creatinine Est GFR ( Amer) Est GFR (Non-Af Amer) BUN/Creatinine Ratio Glucose POC Glucose 156 H 159 H 188 H Calculated Osmolality Calcium Phosphorus Magnesium 06/15/18 06/15/18 06/15/18 14:07 15:31 16:32 WBC RBC Hgb Hct MCV MCH MCHC RDW Plt Count MPV Immature Gran % Seg Neutrophils % Lymphocytes % Monocytes % Eosinophils % Basophils % Neutrophils # Lymphocytes # Monocytes # Eosinophils # Basophils # Sample Site ABG pH ABG pCO2 ABG pO2 ABG HCO3 ABG Total CO2 ABG O2 Saturation ABG Base Excess Jaun Test O2 Delivery Device Inspired O2 PEEP Sodium Potassium 3.4 L Chloride Carbon Dioxide BUN Creatinine Est GFR ( Amer) Est GFR (Non-Af Amer) BUN/Creatinine Ratio Glucose POC Glucose 195 H 160 H Calculated Osmolality Calcium Phosphorus Magnesium 2.0 06/15/18 06/15/18 06/15/18 16:54 18:18 19:36 WBC RBC Hgb Hct MCV MCH MCHC RDW Plt Count MPV Immature Gran % Seg Neutrophils % Lymphocytes % Monocytes % Eosinophils % Basophils % Neutrophils # Lymphocytes # Monocytes # Eosinophils # Basophils # Sample Site ABG pH ABG pCO2 ABG pO2 ABG HCO3 ABG Total CO2 ABG O2 Saturation ABG Base Excess Jaun Test O2 Delivery Device Inspired O2 PEEP Sodium Potassium Chloride Carbon Dioxide BUN Creatinine Est GFR ( Amer) Est GFR (Non-Af Amer) BUN/Creatinine Ratio Glucose POC Glucose 130 H 100 H 140 H Calculated Osmolality Calcium Phosphorus Magnesium 06/15/18 06/15/18 06/15/18 20:03 20:53 21:54 WBC RBC Hgb Hct MCV MCH MCHC RDW Plt Count MPV Immature Gran % Seg Neutrophils % Lymphocytes % Monocytes % Eosinophils % Basophils % Neutrophils # Lymphocytes # Monocytes # Eosinophils # Basophils # Sample Site ABG pH ABG pCO2 ABG pO2 ABG HCO3 ABG Total CO2 ABG O2 Saturation ABG Base Excess Jaun Test O2 Delivery Device Inspired O2 PEEP Sodium Potassium Chloride Carbon Dioxide BUN Creatinine Est GFR ( Amer) Est GFR (Non-Af Amer) BUN/Creatinine Ratio Glucose POC Glucose 137 H 162 H 180 H Calculated Osmolality Calcium Phosphorus Magnesium 06/15/18 06/16/18 06/16/18 23:03 03:45 03:45 WBC 9.1 RBC 2.61 L Hgb 7.3 L Hct 23.7 L MCV 90.8 MCH 28.0 MCHC 30.8 L RDW 15.9 H Plt Count 339 MPV 10.1 Immature Gran % 1.8 Seg Neutrophils % 80.5 Lymphocytes % 10.5 Monocytes % 4.4 Eosinophils % 2.5 Basophils % 0.3 Neutrophils # 7.3 Lymphocytes # 1.0 Monocytes # 0.4 Eosinophils # 0.2 Basophils # 0.0 Sample Site ABG pH ABG pCO2 ABG pO2 ABG HCO3 ABG Total CO2 ABG O2 Saturation ABG Base Excess Jaun Test O2 Delivery Device Inspired O2 PEEP Sodium 140 Potassium 3.7 Chloride 107 Carbon Dioxide 23 BUN 48 H Creatinine 0.97 Est GFR ( Amer) > 60 Est GFR (Non-Af Amer) > 60 BUN/Creatinine Ratio 49 H Glucose 187 H POC Glucose 179 H Calculated Osmolality 308 H Calcium 9.4 Phosphorus 4.4 Magnesium 2.0 06/16/18 04:34 WBC RBC Hgb Hct MCV MCH MCHC RDW Plt Count MPV Immature Gran % Seg Neutrophils % Lymphocytes % Monocytes % Eosinophils % Basophils % Neutrophils # Lymphocytes # Monocytes # Eosinophils # Basophils # Sample Site R Radial ABG pH 7.37 ABG pCO2 45 ABG pO2 98 ABG HCO3 26 ABG Total CO2 28 H ABG O2 Saturation 97 ABG Base Excess 1 Jaun Test N/A O2 Delivery Device Adult Vent Inspired O2 30.0 PEEP 5 Sodium Potassium Chloride Carbon Dioxide BUN Creatinine Est GFR ( Amer) Est GFR (Non-Af Amer) BUN/Creatinine Ratio Glucose POC Glucose Calculated Osmolality Calcium Phosphorus Magnesium Cultures: Cultures 06/12/18 12:28 Anaerobic Culture - Preliminary Aspirate At this time, no anaerobic growth is present. The culture will be finalized after 5 days of incubation. 06/12/18 12:28 Gram Stain - Final Aspirate 06/12/18 12:28 Wound Culture - Final Abdomen Escherichia coli 06/11/18 15:00 Sputum Culture - Final Aspirate Escherichia coli 06/11/18 09:34 Blood Culture - Preliminary Peripheral Venipuncture Culture is incubating and being continuously monitored for growth. Final report to follow. 06/11/18 09:30 Blood Culture - Preliminary Peripheral Venipuncture Culture is incubating and being continuously monitored for growth. Final report to follow. 06/06/18 03:35 Blood Culture - Final Peripheral Venipuncture No growth. Final report. 06/06/18 01:42 Blood Culture - Final Peripheral Venipuncture No growth. Final report. 06/04/18 09:10 Blood Culture - Final Peripheral Venipuncture No growth. Final report. 06/04/18 09:12 Blood Culture - Final Peripheral Venipuncture No growth. Final report. 06/02/18 20:12 Anaerobic Culture - Final Peritoneal Fluid No anaerobes were recovered. 06/06/18 09:20 Urine Culture - Final Urine,[place] No growth. 06/07/18 03:48 Sputum Culture - Final Sputum 06/02/18 20:12 Body Fluid Culture - Final Peritoneal Fluid Escherichia coli Exam - Constitutional Vitals: Temp Pulse Resp BP Pulse Ox 98.8 F 77 18 99/77 100 06/16/18 08:00 06/16/18 09:00 06/16/18 09:00 06/16/18 09:00 06/16/18 09:00 General appearance: cooperative, no acute distress, obese - Head Head exam: Present: atraumatic, normal inspection, normocephalic - Eye Eye exam: Present: EOMI, normal appearance, PERRL Pupils: Present: normal accommodation - ENT ENT exam: Present: mucous membranes moist - Neck Neck exam: Present: normal inspection - Respiratory Respiratory exam: Present: CTAB. Absent: rales, respiratory distress, rhonchi, wheezes - Cardiovascular Cardiovascular exam: Present: RRR, +S1, +S2 - GI/Abdominal GI/Abdominal exam: Present: distended, hypoactive bowel sounds, soft, tenderness (mild, generalized) Additional comments: Midline abdominal incision dressing C/D/I. SARBJIT drain x 2 to the right abdomen with moderate amount of bilious contents noted. SARBJIT drain noted to the left abdomen with small amount of serosanguinous drainage noted. OG tube to LIWS with gastric contents noted. [place] catheter noted to be draining clear yellow urine. - Extremities Exam Extremities exam: Present: normal inspection. Absent: joint swelling, pedal edema, tenderness - Neurological Exam Neurological exam: Present: alert, no focal deficits Additional comments: Opens eyes to verbal stimuli. Follows commands appropriately. - Skin Skin exam: Present: dry, intact, normal color, warm - VTE Documentation of Mechanical Device: Intermittent pneumatic compression device Consult Discharge Plan - Plan Referrals: Zafar Hinton MD [Primary Care Provider] - - Attending Attestation I examined this patient and my medical decision-making was reviewed with the Resident Physician. I agree with the documented findings, disposition and treatment plan as described except to the extent set forth below.
[2018-06-16] MEDS: cefTRIAXone 2,000 MG in 0.9 % Sodium Chloride Mini Bag 100 ML IVPB SCH (15:33)
[2018-06-16] MEDS: MetroNIDAZOLE 500 MG/100 ML 500 MG/100 ML BAG IVPB SCH ×2 (15:34→23:54)
[2018-06-16] MEDS ORDERED: Ondansetron 4 MG/2 ML VIAL ONE (15:45)
[2018-06-16] MEDS: Insulin LISPRO 300 UNITS/3 ML VIAL SQ SCH ×3 (16:18→23:59)
[2018-06-16] MEDS: Ondansetron 4 MG/2 ML VIAL IVP PRN ×2 (16:20→22:45)
[2018-06-16] MEDS ORDERED: Clinimix E 5%-15% SOLUTION 2,000 ML, Parenteral Amino Acid 10% 200 ML with MVI, adult ... IVC SCH (17:00)
--- NOTE | 2018-06-16 18:53 | Electrocardiograph Report ---
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
[2018-06-16] MEDS ORDERED: *HR* Promethazine 25 MG/ML VIAL IVP PRN (19:33)
--- NOTE | 2018-06-16 19:48 | Anesthesia Evaluation PreOp ---
Date of Encounter: 06/16/18 - Past History Planned Operation: TRACHEOSTOMY Cardiac History: HTN Pulmonary History: Other (RESPIRATORY FAILURE, VENT DAY 15, VRE PNEUOMNIA, VRE BACTREMIA) Other Medical History: Renal (RENAL FAILURE), Diabetes Type II, Other ( PERFORATED DUODENAL ULCER, POST EXP LAP X2, PERCUTANEOUS ABCESS DRAINAGE, OBESITY,) Anesthesia History: No Prior Anesthetic Complications, Past Anesthesia Alcohol Use: none Drug use: none Medications and Allergies Aspirin 81 mg PO DAILY 10/14/16 [History] Metformin HCl [Glucophage] 1,000 mg PO BID 10/14/16 [History] Triamterene/HCTZ 37.5/25mg [Dyazide] 1 tab PO DAILY 10/15/16 [History] Losartan Potassium [Cozaar] 100 mg PO DAILY 04/04/18 [History] hydrALAZINE [HydrALAZINE] 25 mg PO BID 04/04/18 [History] Metoprolol [Lopressor] 75 mg PO BID 30 Days #60 tablet 04/24/18 [Rx] Omeprazole [PriLOSEC] 20 mg PO BIDAC 30 Days #60 capsule.dr 04/24/18 [Rx] Amoxicillin/Clavulanate [Augmentin] 875 mg PO BIDWM 13 Days #26 tablet 04/25/18 [Rx] Fluconazole [Diflucan] 200 mg PO DAILY 13 Days #13 tab 05/01/18 [Rx] Linezolid [Zyvox] 600 mg PO BID 13 Days #26 tablet 05/01/18 [Rx] Metoclopramide [Reglan] 5 mg PO Q6HR #28 ud.liq 05/01/18 [Rx] Ondansetron ODT [Zofran ODT] 8 mg SL Q8HR #30 tab.rapdis 05/01/18 [Rx] 3 Allergy/AdvReac Type Severity Reaction Status Date / Time ciprofloxacin [From Cipro] Allergy Swelling Verified 06/02/18 13:16 of Lip/Tongue/Throat azithromycin AdvReac Vomiting Verified 06/02/18 13:16 codeine AdvReac Vomiting Verified 06/02/18 13:16 - Meds/Allergy Pre-op Review Medications Reviewed: Yes Allergies Reviewed: Yes Anesthesia Results - Labs 06/16/18 03:45 06/16/18 03:45 ABG ABG pH 7.37 pH Units (7.32-7.45) 06/16/18 04:34 ABG pCO2 45 mmHg (35-45) 06/16/18 04:34 ABG pO2 98 mmHg (85-104) 06/16/18 04:34 ABG O2 Saturation 97 % (95-98) 06/16/18 04:34 Ventilator Settings Mode Ventilator Tidal Volume Setting 500 Ventilator Respiratory Rate Setting 18 Actual Respiratory Rate 20-24 Positive End Expiratory Pressure 5 Peak Inspiratory Airway Pressure 18 Anesthesia Exam Vital Signs/O2 Sat/Glucose, Most Recent Temp Pulse Resp BP Pulse Ox 98.8 F 113 16 135/91 100 06/16/18 08:00 06/16/18 19:00 06/16/18 19:00 06/16/18 19:00 06/16/18 19:00 Blood Glucose* 194 HEIGHT 1.78 m WEIGHT 106 kg BMI 34
[2018-06-16] MEDS ORDERED: *HR* Promethazine 25 MG/ML VIAL ONE (19:59)
[2018-06-16] MEDS: Insulin DETEMIR 100 UNIT/ML X5UNITS SQ SCH (21:05)
[2018-06-16] MEDS ORDERED: *HR* FentaNYL (PF) 100 MCG/2 ML VIAL IVP SCH (22:15)
[2018-06-17] MEDS: *HR* FentaNYL (PF) 100 MCG/2 ML VIAL IVP PRN ×4 (01:05→21:38)
[2018-06-17] MEDS: *HR* Promethazine 25 MG/ML VIAL IVP PRN ×3 (03:31→20:53)
[2018-06-17] MEDS: Insulin LISPRO 300 UNITS/3 ML VIAL SQ SCH ×5 (03:31→20:36)
[2018-06-17] MEDS: *HR* Heparin 5,000 UNIT/ML VIAL SQ SCH ×3 (05:09→20:36)
[2018-06-17] MEDS: Pantoprazole 40 MG VIAL IVP SCH ×2 (05:09→17:38)
[2018-06-17 05:14] LABS: Basophils # 0.1 K/mcL (0.0-0.2); Basophils % 0.6 %; Eosinophils # 0.2 K/mcL (0.0-0.6); Hematocrit 25.1 % (37.5-50.1); Hemoglobin 7.7 g/dL (12.9-16.9); Immature Granulocytes % 4.4 % (0-4); Lymphocytes % 10.5 %; Mean Corpuscular HGB Conc 30.7 g/dL (31.6-35.5); Mean Corpuscular Hemoglobin 27.2 pg (28.0-33.3); Mean Corpuscular Volume 88.7 fL (83.0-100.0); Mean Platelet Volume 9.9 fL (9.4-12.4); Monocytes # 0.5 K/mcL (0.0-1.3); Monocytes % 5.1 %; Neutrophils # 7.1 K/mcL (1.6-8.9); Nucleated Red Blood Cells 0.2 /100 WBC (0); Platelet Count 425 K/mcL (140-400); Red Blood Count 2.83 M/mcL (4.19-5.50); Segmented Neutrophils % 77.4 %
[2018-06-17 05:20] LABS: INR 1.2; Prothrombin Time 13.4 Seconds (9.4-12.1)
[2018-06-17 05:33] LABS: BUN/Creatinine Ratio 48 (6-26); Blood Urea Nitrogen 40 mg/dL (6-20); Calcium 9.9 mg/dL (8.6-10.3); Carbon Dioxide 24 mEq/L (23-29); Chloride 108 mEq/L (98-107); Glucose 199 mg/dL (70-105); Magnesium 1.9 mg/dL (1.6-2.6); Osmolality,Calculated 307 (280-300); Phosphorous 3.5 mg/dL (2.7-4.5); Potassium 3.4 mEq/L (3.5-5.1); Sodium 141 mEq/L (136-145); eGFR For Non-African Americans > 60 (> 60)
--- NOTE | 2018-06-17 06:02 | Pulmonology Progress Note ---
Date of Encounter: 06/17/18 Assessment and Plan (1) Septic shock due to Escherichia coli Current Visit: Yes Status: Acute Most likely 2/2 intraabdominal abscess with purulant fluid collections. 1/2 initial blood cultures pos E coli. Initial body fluid culture pos E coli. Remains intubated and sedated. Off propofol now. Precedex weaning now with haldol on board. Encephalopathy continues to improve, neuro evaluated and signed off, arousable to voice today, following commands, squeezed hands and moved toes. Likely metabolic. EEG showed generalized slowing, MRI brain without any acute abnormality. IR drained abdominal abscess grew E coli, intermediate to zosyn. WBC 9.1 today, afebrile, hemodynamics stable. Sputum culture pos for Ecoli. Repeat blood cultures ngtd. Continue zosyn and diflucan today (day 15 of both and day 13 since last pos blood culture). ID on board will manage abx changes. Have discussed possibility of tracheostomy with family given this is day 15 on vent and they would like to think it over and see if he progresses next couple days before proceeding. SBT again this afternoon when family present. (2) Pneumonia due to E. coli Current Visit: Yes Status: Acute Sputum culture pos for E coli 06/11/18. Small bilateral lower lung consolidation on chest CT 06/11/18. Likely same bacteria as other pos cultures. WBC 9 today, afebrile, lactic 1.1 most recent. Has had secretions throughout time on vent. Improved with scopolamine patch yesterday. Day 15 of zosyn which the sputum sensitive too but abdominal wound E coli intermediate to zosyn. ID managing abx and likely change today. Qualifiers: Laterality: bilateral Lung location: lower lobe of lung Qualified Code(s) : J15.5 - Pneumonia due to Escherichia coli (3) Bacteremia due to Gram-negative bacteria Current Visit: Yes Status: Acute Initial blood culture pos for E coli 1/2. sensitive to pip/tazo which he is on, resistant to ampicillin, amp/sulbactam. ID on board. Repeat cultures no growth. Will continue current abx, deescalate as able. Repeat bc ngtd. Abdominal wound drainage and sputum culture pos for E coli, abdominal culture intermediate to zosyn. (4) Acute on chronic renal failure Current Visit: Yes Status: Resolved Resolved. Cr 0.97 today. Electrolytes stable. Good uop. Will avoid nephrotoxins , and monitor electrolytes replacing as needed. Qualifiers: Acute renal failure type: unspecified Chronic kidney disease stage: unspecified stage Qualified Code(s): N17.9 - Acute kidney failure, unspecified ; N18.9 - Chronic kidney disease, unspecified (5) Perforated viscus Current Visit: Yes Status: Acute S/p exlap, washout, gerri-en-y. Surg following. Repeat wound cultures grew E coli , intermediate to zosyn. (6) Lactic acidosis Current Visit: Yes Status: Acute Resolved. Lactic had high of 5.1, Latest 1.1. (7) Anemia Current Visit: Yes Status: Acute Hgb 7.2 this morning, Stable in 7's since PRBC infusion. Qualifiers: Anemia type: other cause Other causes of anemia: other cause, not classified Qualified Code(s): D64.89 - Other specified anemias (8) Diabetes Current Visit: Yes Status: Chronic Hx of DM. On TPN, glucose stable since insulin infusion. Continue infusion for now. Qualifiers: Diabetes mellitus type: type 2 Diabetes mellitus care home insulin use: without care home use Diabetes mellitus complication status: with hyperglycemia Qualified Code(s): E11.65 - Type 2 diabetes mellitus with hyperglycemia (9) VRE (vancomycin-resistant Enterococci) Current Visit: No Status: Inactive Hx of VRE in urine. Treated with outpatient abx with ID. On contact precautions. (10) Obesity (BMI 30.0-34.9) Current Visit: Yes Status: Chronic BMI 34.6. Will recommend lifestyle modifications upon dc. (11) DVT prophylaxis Current Visit: Yes Status: Acute Heparin prophylaxis Subjective Principal diagnosis: Septic shock Interval history: No acute events overnight. Intubated and sedated. CPAP overnight trialed. Afebrile overnight. Continues to be arousable and follows commands today. Objective PUL Vital signs: Last Vital Signs Temp 98.5 F 06/17/18 04:00 Pulse 147 06/17/18 05:00 Resp 24 06/17/18 05:00 BP 127/105 06/17/18 05:00 Pulse Ox 100 06/17/18 05:00 Results - Laboratory Findings CBC and BMP: 06/17/18 04:39 06/17/18 04:39 ABG ABG pH 7.37 pH Units (7.32-7.45) 06/16/18 04:34 ABG pCO2 45 mmHg (35-45) 06/16/18 04:34 ABG pO2 98 mmHg (85-104) 06/16/18 04:34 ABG O2 Saturation 97 % (95-98) 06/16/18 04:34 PT/INR, D-dimer PT 13.4 Seconds (9.4-12.1) H 06/17/18 04:39 Abnormal lab findings: Abnormal lab results RBC 2.83 M/mcL (4.19-5.50) L 06/17/18 04:39 Hgb 7.7 g/dL (12.9-16.9) L 06/17/18 04:39 Hct 25.1 % (37.5-50.1) L 06/17/18 04:39 MCH 27.2 pg (28.0-33.3) L 06/17/18 04:39 MCHC 30.7 g/dL (31.6-35.5) L 06/17/18 04:39 RDW 16.0 % (11.5-14.5) H 06/17/18 04:39 Plt Count 425 K/mcL (140-400) H 06/17/18 04:39 Immature Gran % 4.4 % (0-4) H 06/17/18 04:39 Nucleated RBCs/100 WBC 0.2 /100 WBC (0) H 06/17/18 04:39 Toxic Granulation Present (Not Present) A 06/08/18 04:35 Large Platelets Present (Not Present) A 06/07/18 03:30 PT 13.4 Seconds (9.4-12.1) H 06/17/18 04:39 ABG Total CO2 28 mEq/L (20-26) H 06/16/18 04:34 Potassium 3.4 mEq/L (3.5-5.1) L 06/17/18 04:39 Chloride 108 mEq/L (98-107) H 06/17/18 04:39 BUN 40 mg/dL (6-20) H 06/17/18 04:39 BUN/Creatinine Ratio 48 (6-26) H 06/17/18 04:39 Glucose 199 mg/dL (70-105) H 06/17/18 04:39 POC Glucose 192 mg/dL (70-99) H 06/16/18 23:18 Calculated Osmolality 307 (280-300) H 06/17/18 04:39 Direct Bilirubin 0.3 mg/dL (0.0-0.2) H 06/12/18 03:20 Serum Total Protein 5.6 g/dL (6.4-8.9) L 06/12/18 03:20 Albumin 2.7 g/dL (3.5-5.7) L 06/12/18 03:20 Albumin/Globulin Ratio 0.9 (1.1-2.2) L 06/12/18 03:20 Triglycerides 341 mg/dL (< 150) H 06/10/18 03:14 Gastrin 117 pg/mL (0-100) H 06/03/18 21:23 Urine Clarity Cloudy (Clear) A 06/02/18 09:18 Urine Protein 100 mg/dL (Neg-Trace) H 06/02/18 09:18 Urine Blood Large (Negative) H 06/02/18 09:18 Ur Leukocyte Esterase Moderate (Negative) H 06/02/18 09:18 Urine Microscopic RBC TNTC per hpf (0-3) H 06/02/18 09:18 Urine Microscopic WBC 15-30 per hpf (0-3) H 06/02/18 09:18 Ur Squamous Epith Cells Many per lpf (None-Few) H 06/02/18 09:18 Ur Culture Indicated? NO. (NO) A 06/02/18 09:18 Enterobacteriac sp PCR DETECTED (Not Detect) A 06/02/18 09:18 E. coli (PCR) DETECTED (Not Detect) A 06/02/18 09:18 - Microbiology Findings Microbiology Findings: Microbiology, Last 48 Hours 06/11/18 09:34 Blood Culture - Final Peripheral Venipuncture No growth. Final report. 06/11/18 09:30 Blood Culture - Final Peripheral Venipuncture No growth. Final report. 06/12/18 12:28 Anaerobic Culture - Preliminary Aspirate At this time, no anaerobic growth is present. The culture will be finalized after 5 days of incubation. - Clinical Findings Intake & Output: Intake & Output 06/16/18 06/16/18 06/17/18 15:59 23:59 07:59 Intake Total 598.15 / 598.15 215.7 / 215.7 350 / 350 Output Total 2250 / 2250 815 / 815 305 / 305 Balance -1651.85 / -1651.85 -599.3 / -599.3 45 / 45 Weight 103.6 kg - VTE Documentation of Mechanical Device: Intermittent pneumatic compression device Consult Discharge Plan - Plan Referrals: Zafar Hinton MD [Primary Care Provider] -
[2018-06-17] MEDS: Artificial Tears SOLN 15 ML BOTTLE BOTH EYES SCH ×6 (06:06→23:48)
[2018-06-17] MEDS: Dexmedetomidine HCl 400 MCG/100 ML MLS IVC SCH ×2 (06:12→22:15)
--- NOTE | 2018-06-17 07:20 | Pulmonology Progress Note ---
Date of Encounter: 06/17/18 Time of Encounter: 07:20 Assessment and Plan (1) Acute perforated duodenal ulcer with hemorrhage Current Visit: No Status: Acute Patient seen and examined at bedside Labs, radiology, chart personally reviewed. Management was reviewed during multidisciplinary critical care rounds. 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 Continue treatment for pneumonia Cards: Distributive shock has resolved tachycardia secondary to nausea and vomiting continue to monitor on tele GI: Acute perforated viscus secondary to gastric/duodenal ulcer complicated by intra-abdominal abscess status post repeat drain placement general surgery following daily need to advance NG tube today and keep to suction Nutrition: Nothing by mouth for now continue TPN per dietary recommendations Renal: Acute kidney injury has resolved UOP Monitored, Cont to Trend sCr and monitor Electrolytes. ID: Is being treated for Escherichia coli intra-abdominal infection along with Escherichia coli pneumonia he has been transition to assess cephalosporin per ID recommendations white count has normalized Heme/Onc: Chronic anemia stable. Platelets Stable continue DVT prophylaxis Endo: Glucose Monitored; basal bolus dosing of insulin was titrated for hyperglycemia Integ/MSK: Skin Care per routine ICU Nursing Protocol to prevent ulcers. Lines: All lines examined without evidence of infection : Dispo: Remain in ICU for close monitoring CODE: Full family updated at bedside including his next of kin () (2) Nausea and vomiting Current Visit: No Status: Acute Qualifiers: Vomiting type: unspecified Vomiting Intractability: unspecified Qualified Code(s): R11.2 - Nausea with vomiting, unspecified (3) Sepsis Current Visit: Yes Status: Acute Qualifiers: Sepsis type: sepsis due to unspecified organism Qualified Code(s): A41.9 - Sepsis, unspecified organism (4) Intra-abdominal abscess Current Visit: No Status: Acute (5) Encephalopathy Current Visit: Yes Status: Acute (6) Acute respiratory failure Current Visit: Yes Status: Acute Qualifiers: Respiratory failure complication: hypoxia and hypercapnia Qualified Code(s) : J96.01 - Acute respiratory failure with hypoxia; J96.02 - Acute respiratory failure with hypercapnia (7) Pneumonia due to E. coli Current Visit: Yes Status: Acute Qualifiers: Laterality: bilateral Lung location: lower lobe of lung Qualified Code(s) : J15.5 - Pneumonia due to Escherichia coli Subjective Principal diagnosis: Septic shock Interval history: The patient was successfully liberated from the then yesterday respiratory standpoint he has been very well unfortunately his course has been complicated by significant nausea/vomiting this may be secondary to a malpositioned nasogastric tube pending official surgery recommendations. Otherwise he is cooperative with exam is been hemodynamically stable except for periods of sinus tachycardia secondary to vomiting Objective PUL Vital signs: Last Vital Signs Temp 98.5 F 06/17/18 04:00 Pulse 114 06/17/18 06:00 Resp 18 06/17/18 06:00 BP 132/86 06/17/18 06:00 Pulse Ox 99 06/17/18 06:00 General appearance: no acute distress Eyes: nonicteric Effort: normal Auscultation: bilateral: diminished breath sounds Cardiovascular: regular rate and rhythm Gastrointestinal: hypoactive bowel sounds, soft, non-tender, other (Bilious output from the NG tube and bilious/purulent output from SARBJIT drain; postsurgical site dressed clean dry and intact) Integumentary: normal Extremities: other (Bilateral dependent lower extremity edema) Musculoskeletal: no deformities normal mental status, other (Able to move all extremities but noted symmetric weakness) anxious Results - Laboratory Findings CBC and BMP: 06/17/18 04:39 06/17/18 04:39 ABG ABG pH 7.37 pH Units (7.32-7.45) 06/16/18 04:34 ABG pCO2 45 mmHg (35-45) 06/16/18 04:34 ABG pO2 98 mmHg (85-104) 06/16/18 04:34 ABG O2 Saturation 97 % (95-98) 06/16/18 04:34 PT/INR, D-dimer PT 13.4 Seconds (9.4-12.1) H 06/17/18 04:39 Abnormal lab findings: Abnormal lab results RBC 2.83 M/mcL (4.19-5.50) L 06/17/18 04:39 Hgb 7.7 g/dL (12.9-16.9) L 06/17/18 04:39 Hct 25.1 % (37.5-50.1) L 06/17/18 04:39 MCH 27.2 pg (28.0-33.3) L 06/17/18 04:39 MCHC 30.7 g/dL (31.6-35.5) L 06/17/18 04:39 RDW 16.0 % (11.5-14.5) H 06/17/18 04:39 Plt Count 425 K/mcL (140-400) H 06/17/18 04:39 Immature Gran % 4.4 % (0-4) H 06/17/18 04:39 Nucleated RBCs/100 WBC 0.2 /100 WBC (0) H 06/17/18 04:39 Toxic Granulation Present (Not Present) A 06/08/18 04:35 Large Platelets Present (Not Present) A 06/07/18 03:30 PT 13.4 Seconds (9.4-12.1) H 06/17/18 04:39 ABG Total CO2 28 mEq/L (20-26) H 06/16/18 04:34 Potassium 3.4 mEq/L (3.5-5.1) L 06/17/18 04:39 Chloride 108 mEq/L (98-107) H 06/17/18 04:39 BUN 40 mg/dL (6-20) H 06/17/18 04:39 BUN/Creatinine Ratio 48 (6-26) H 06/17/18 04:39 Glucose 199 mg/dL (70-105) H 06/17/18 04:39 POC Glucose 192 mg/dL (70-99) H 06/16/18 23:18 Calculated Osmolality 307 (280-300) H 06/17/18 04:39 Direct Bilirubin 0.3 mg/dL (0.0-0.2) H 06/12/18 03:20 Serum Total Protein 5.6 g/dL (6.4-8.9) L 06/12/18 03:20 Albumin 2.7 g/dL (3.5-5.7) L 06/12/18 03:20 Albumin/Globulin Ratio 0.9 (1.1-2.2) L 06/12/18 03:20 Triglycerides 341 mg/dL (< 150) H 06/10/18 03:14 Gastrin 117 pg/mL (0-100) H 06/03/18 21:23 Urine Clarity Cloudy (Clear) A 06/02/18 09:18 Urine Protein 100 mg/dL (Neg-Trace) H 06/02/18 09:18 Urine Blood Large (Negative) H 06/02/18 09:18 Ur Leukocyte Esterase Moderate (Negative) H 06/02/18 09:18 Urine Microscopic RBC TNTC per hpf (0-3) H 06/02/18 09:18 Urine Microscopic WBC 15-30 per hpf (0-3) H 06/02/18 09:18 Ur Squamous Epith Cells Many per lpf (None-Few) H 06/02/18 09:18 Ur Culture Indicated? NO. (NO) A 06/02/18 09:18 Enterobacteriac sp PCR DETECTED (Not Detect) A 06/02/18 09:18 E. coli (PCR) DETECTED (Not Detect) A 06/02/18 09:18 - Microbiology Findings Microbiology Findings: Microbiology, Last 48 Hours 06/11/18 09:34 Blood Culture - Final Peripheral Venipuncture No growth. Final report. 06/11/18 09:30 Blood Culture - Final Peripheral Venipuncture No growth. Final report. 06/12/18 12:28 Anaerobic Culture - Preliminary Aspirate At this time, no anaerobic growth is present. The culture will be finalized after 5 days of incubation. - Clinical Findings Intake & Output: Intake & Output 06/16/18 06/16/1818 15:59 23:59 07:59 Intake Total 598.15 / 598.15 215.7 / 215.7 450 / 450 Output Total 2250 / 2250 815 / 815 305 / 305 Balance -1651.85 / -1651.85 -599.3 / -599.3 145 / 145 Weight 103.6 kg - VTE Documentation of Mechanical Device: Intermittent pneumatic compression device Consult Discharge Plan - Plan Referrals: Zafar Hinton MD [Primary Care Provider] -
--- NOTE | 2018-06-17 07:41 | General Surgery Progress Note ---
<Pedro Ocasio R - Last Filed: 06/17/18 08:27> Date of Encounter: 06/17/18 Time of Encounter: 07:15 - Assessment and Plan (1) Perforated abdominal viscus Current Visit: No Status: Acute POD #12 s/p exploratory laparotomy, antrectomy, gerri en Y reconstruction with Drs. Serrano and Mary on 06/05/2018 Extubated yesterday. Currently on 2L/NC. Awake and alert, nausea and vomiting Plan: KUB to check NG position prn antiemetic Will hold tracheostomy at this time, monitor closely CCU care and medical management Continue TPN Comfort care and pain management Wound care daily Monitor drain and NG output PPI/ dvt prophylaxis (2) Diabetes Current Visit: Yes Status: Chronic Continue poc measurements and insulin as needed for glycemic control Qualifiers: Diabetes mellitus type: type 2 Diabetes mellitus ferry terminal agent insulin use: without ferry terminal agent use Diabetes mellitus complication status: with hyperglycemia Qualified Code(s): E11.65 - Type 2 diabetes mellitus with hyperglycemia (3) Bacteremia due to Gram-negative bacteria Current Visit: Yes Status: Acute Initial blood cultures positive for ecoli 06/11 sputum culture- ecoli / blood cultures pending 06/12 intra-abdominal abscess cultures- e-coli, intermediate sensitivity to Zosyn Per ID recommendations placed on Ceftriaxone and flagyl continue fluconazole (4) Anemia Current Visit: Yes Status: Acute Hemoglobin 7.7 this am Has been stable near this level since transfusion on 06/07 Would like to see patient with Hemoglobin of at least 8 and preferable 9 Qualifiers: Anemia type: other cause Other causes of anemia: other cause, not classified Qualified Code(s): D64.89 - Other specified anemias (5) Acute on chronic renal failure Current Visit: Yes Status: Resolved Resolved, Ucr 083 this AM Replete electrolytes Qualifiers: Acute renal failure type: unspecified Chronic kidney disease stage: unspecified stage Qualified Code(s): N17.9 - Acute kidney failure, unspecified ; N18.9 - Chronic kidney disease, unspecified Subjective Patient reports: no new complaints, flatus, nausea, vomiting, afebrile Narrative: Patient was extubated yesterday. Reporting nausea and vomiting. Objective Vital Signs - Last 8 Hours Temp Pulse Resp BP Pulse Ox 06/17/18 06:00 114 18 132/86 99 09/18/18 05:00 147 24 127/105 100 06/17/18 04:00 98.5 F 105 16 119/84 100 06/17/18 03:00 105 18 143/79 100 06/17/18 02:00 113 14 118/69 100 06/17/18 01:00 115 16 145/88 100 06/17/18 00:00 103 17 124/78 100 06/16/18 23:51 99.3 F Intake and Output 06/16/18 06/16/18 06/17/18 15:59 23:59 07:59 Intake Total 598.15 / 598.15 215.7 / 215.7 450 / 450 Output Total 2250 / 2250 815 / 815 305 / 305 Balance -1651.85 / -1651.85 -599.3 / -599.3 145 / 145 Intake: IV Fluids 598.15 / 598.15 215.7 / 215.7 450 / 450 PRECEDEX Premix 400 mcg In 100 194.3 / 194.3 5.7 / 5.7 100 / 100 ml @ 0.2 MCG/KG/HR 5.48 mls/hr IVC .[id number] [place] Rx#:[id number] FentaNYL (PF) 2,500 MCG In 10 / 10 Empty Bag 1 Each @ 50 MCG/HR 1 mls/hr IVC CONT [facility] Rx#: [id number] HumuLIN R 250 UNIT In 0.9 % 103.85 / 103.85 0 / 0 Sodium Chloride 250 ML @ Titrate IVC CONT [facility] Rx#: [id number] Intralipid 20% 250 ML @ 21 mls/ 250 / 250 hr IVPB MoWeFr@1700 [place] Rx#: [id number] Diflucan Premix 200 MG/100 ML 100 / 100 200 mg In 100 ml @ 100 mls/hr IVPB DAILY [place] Rx#:[id number] Flagyl Premix 500 MG/100 ML 500 100 / 100 100 / 100 mg In 100 ml @ 100 mls/hr IVPB Q8HR [place] Rx#:[id number] Zosyn 3.375 GM In 0.9 % Sodium 100 / 100 Chloride (Mini-Bag +) 100 ML @ 25 mls/hr IVPB Q8HR [place] Rx#: [id number] Potassium Chloride 10 mEq/100mL 100 / 100 10 meq In 100 ml @ 100 mls/hr IVPB Q1H [facility] Rx#:[id number] Rocephin 2,000 MG In 0.9 % 100 / 100 Sodium Chloride (Mini-Bag +) 100 ML @ 200 mls/hr IVPB Q24H [facility] Rx#:[id number] Output: Emesis 50 / 50 Catheter 2100 / 2100 625 / 625 225 / 225 Gastric Drainage 30 / 30 Wound Drainage 150 / 150 140 / 140 50 / 50 Left Abdomen 0 / 0 0 / 0 0 / 0 Right Abdomen 120 / 120 60 / 60 40 / 40 Right Upper Abdomen 30 / 30 80 / 80 10 / 10 Other: Weight 103.6 kg Blood Glucose* 194 192 184 - General physical appearance well developed, no distress, chronically ill - Eyes PERRL - ENT normal mucosa, atraumatic, normocephalic - Neck Neck exam: trachea midline - Respiratory normal expansion, normal respiratory effort - Cardiovascular Cardiovascular exam: Present: tachycardia - Abdomen Abdomen: Present: bowel sounds present (infrequent), soft, tender (post surgical tenderness as expected), wound. Absent: distended - Incision Incision: Present: clean and dry, open (packing present in places between guille) - Integumentary no rash - Neurologic CN 2-12 grossly intact - Musculoskeletal normal posture - Labs 06/17/18 04:39 06/17/18 04:39 Diabetes panel 06/17/18 Range/Units 04:39 Sodium 141 (136-145) mEq/L Potassium 3.4 L (3.5-5.1) mEq/L Chloride 108 H (98-107) mEq/L Carbon Dioxide 24 (23-29) mEq/L BUN 40 H (6-20) mg/dL Creatinine 0.83 (0.70-1.30) mg/dL Glucose 199 H (70-105) mg/dL Calcium 9.9 (8.6-10.3) mg/dL Calcium panel 06/17/18 Range/Units 04:39 Calcium 9.9 (8.6-10.3) mg/dL Phosphorus 3.5 (2.7-4.5) mg/dL Pituitary panel 06/17/18 Range/Units 04:39 Sodium 141 (136-145) mEq/L Potassium 3.4 L (3.5-5.1) mEq/L Chloride 108 H (98-107) mEq/L Carbon Dioxide 24 (23-29) mEq/L BUN 40 H (6-20) mg/dL Creatinine 0.83 (0.70-1.30) mg/dL Glucose 199 H (70-105) mg/dL Calcium 9.9 (8.6-10.3) mg/dL Adrenal panel 06/17/18 Range/Units 04:39 Sodium 141 (136-145) mEq/L Potassium 3.4 L (3.5-5.1) mEq/L Chloride 108 H (98-107) mEq/L Carbon Dioxide 24 (23-29) mEq/L BUN 40 H (6-20) mg/dL Creatinine 0.83 (0.70-1.30) mg/dL Glucose 199 H (70-105) mg/dL Calcium 9.9 (8.6-10.3) mg/dL - VTE Documentation of Mechanical Device: Intermittent pneumatic compression device Consult Discharge Plan - Plan Referrals: Zafar Hinton MD [Primary Care Provider] - <Benedict Serrano - Last Filed: 06/17/18 20:05> Date of Encounter: 06/17/18 - Assessment and Plan (1) Peritonitis Current Visit: Yes Status: Acute Objective Vital Signs - Last 8 Hours Temp Pulse Resp BP Pulse Ox 06/17/18 19:00 121 19 136/92 98 06/17/18 18:00 114 11 133/98 99 06/17/18 17:00 112 18 125/82 99 06/17/18 16:00 99.3 F 114 20 136/89 97 06/17/18 15:00 124 23 133/95 97 06/17/18 14:00 126 28 140/80 98 06/17/18 13:00 124 19 144/94 100 Intake and Output 06/17/18 06/17/18 06/17/18 07:59 15:59 23:59 Intake Total 550 / 550 704 / 704 100 / 100 Output Total 675 / 675 1050 / 1050 800 / 800 Balance -125 / -125 -346 / -346 -700 / -700 Intake: IV Fluids 550 / 550 704 / 704 100 / 100 PRECEDEX Premix 400 mcg In 100 100 / 100 ml @ 0.2 MCG/KG/HR 5.48 mls/hr IVC .[id number] [place] Rx#:[id number] Intralipid 20% 250 ML @ 21 mls/ 250 / 250 hr IVPB MoWeFr@1700 [facility] Rx#: [id number] Diflucan Premix 200 MG/100 ML 100 / 100 200 mg In 100 ml @ 100 mls/hr IVPB DAILY [facility] Rx#:[id number] Magnesium Sulfate 2 GM In 0.9 % 104 / 104 Sodium Chloride 100 ML @ 52 mls/hr IVPB Q6H [facility] Rx#: [id number] Flagyl Premix 500 MG/100 ML 500 100 / 100 100 / 100 100 / 100 mg In 100 ml @ 100 mls/hr IVPB Q8HR [facility] Rx#:[id number] Potassium Chloride 10 mEq/100mL 100 / 100 300 / 300 10 meq In 100 ml @ 100 mls/hr IVPB Q1H [facility] Rx#:[id number] Rocephin 2,000 MG In 0.9 % 100 / 100 Sodium Chloride (Mini-Bag +) 100 ML @ 200 mls/hr IVPB Q24H [facility] Rx#:[id number] Output: Gastric Tube Lavage Amount 20 / 20 Right Nare 20 / 20 Catheter 550 / 550 1000 / 1000 800 / 800 Gastric Drainage 30 / 30 Wound Drainage 95 / 95 30 / 30 Left Abdomen 5 / 5 Right Abdomen 60 / 60 10 / 10 Right Upper Abdomen 30 / 30 20 / 20 Other: Weight 105 kg Blood Glucose* 225 198 185 Patient Weight 06/17/18 23:59 Weight 105 kg - Labs 06/17/18 04:39 06/17/18 14:20 Diabetes panel 06/17/18 06/17/18 Range/Units 04:39 14:20 Sodium 141 (136-145) mEq/L Potassium 3.4 L 4.0 (3.5-5.1) mEq/L Chloride 108 H (98-107) mEq/L Carbon Dioxide 24 (23-29) mEq/L BUN 40 H (6-20) mg/dL Creatinine 0.83 (0.70-1.30) mg/dL Glucose 199 H (70-105) mg/dL Calcium 9.9 (8.6-10.3) mg/dL Calcium panel 06/17/18 Range/Units 04:39 Calcium 9.9 (8.6-10.3) mg/dL Phosphorus 3.5 (2.7-4.5) mg/dL Pituitary panel 06/17/18 06/17/18 Range/Units 04:39 14:20 Sodium 141 (136-145) mEq/L Potassium 3.4 L 4.0 (3.5-5.1) mEq/L Chloride 108 H (98-107) mEq/L Carbon Dioxide 24 (23-29) mEq/L BUN 40 H (6-20) mg/dL Creatinine 0.83 (0.70-1.30) mg/dL Glucose 199 H (70-105) mg/dL Calcium 9.9 (8.6-10.3) mg/dL Adrenal panel 06/17/18 06/17/18 Range/Units 04:39 14:20 Sodium 141 (136-145) mEq/L Potassium 3.4 L 4.0 (3.5-5.1) mEq/L Chloride 108 H (98-107) mEq/L Carbon Dioxide 24 (23-29) mEq/L BUN 40 H (6-20) mg/dL Creatinine 0.83 (0.70-1.30) mg/dL Glucose 199 H (70-105) mg/dL Calcium 9.9 (8.6-10.3) mg/dL - Attending Attestation patient seen and examined; i have reviewed all labs, imaging, and notes. i agree with the above assessment and plan and wish to add the following... still extubated; ng advanced PT/OT pulm toileting supportive care wean sedation cont pain control
[2018-06-17] MEDS: MetroNIDAZOLE 500 MG/100 ML 500 MG/100 ML BAG IVPB SCH ×3 (07:50→23:59)
[2018-06-17] MEDS: Fluconazole 200 MG/100 ML 200 MG/100 ML BAG IVPB SCH (07:51)
[2018-06-17] MEDS: Nystatin SUSP 5 ML UD.LIQ PO SCH ×4 (07:51→20:36)
[2018-06-17] MEDS: Furosemide 40 MG/4 ML VIAL IVP SCH (07:51)
[2018-06-17] MEDS: Ondansetron 4 MG/2 ML VIAL IVP PRN ×2 (07:51→14:47)
[2018-06-17] MEDS: Chlorhexidine Rinse 15 ML MOUTHWASH MM SCH ×2 (07:52→20:35)
--- NOTE | 2018-06-17 09:47 | Infectious Disease Progress No ---
Date of Encounter: 06/17/18 Time of Encounter: 09:45 - Assessment and Plan (1) Severe sepsis Current Visit: Yes Status: Acute The patient had 3 sepsis criteria on admission. Likely secondary to bacteremia and intra-abdominal abscess and new intra- abdominal phlegmon. Improved. Afebrile. Tachycardic this morning secondary to nausea and vomiting. Blood cultures obtained 06/02/18 her +1 out of 2 sets for Escherichia coli. Repeat blood cultures drawn 06/04/18 are negative 2 sets. Repeat blood cultures drawn 06/06/18 are negative x 2 sets. Repeat blood cultures 2 sets drawn 06/11/18 are NGTD. Repeat sputum culture positive for E. coli. CT abdomen and pelvis shows phlegmon in the RUQ. Status post CT-guided drain placement 06/12/18. CT chest shows likely atelectasis. (2) Bacteremia due to Gram-negative bacteria Current Visit: Yes Status: Acute Causative organism: Escherichia coli per PCR. Source likely intra-abdominal abscess. Blood cultures obtained 06/02/18 are +1 out of 2 sets for Escherichia coli. Repeat blood cultures 06/04/18 are negative 2 sets. Repeat blood cultures 06/06/18 are negative x 2 sets. Repeat blood cultures 2 sets drawn 06/11/18 are negative. Continue Rocephin 2 grams IV daily. (day 7 of treatment) Duration of treatment depends on the clinical picture. Monitor renal function and a productive toxicity and dose adjust antibiotics. (3) Intra-abdominal abscess Current Visit: No Status: Acute Likely secondary to perforated viscus. Causative organism E. coli. POD #15 Status post exploratory laparotomy, drainage of intra-abdominal abscess 06/02/[address] Maria. Operative note was reviewed. Gross purulence noted and dropped, but no succus, bile, or staining was seen in the abdominal cavity. CT of the abdomen and pelvis 06/11/18 showed findings consistent with phlegmon in the RUQ. Status post CT-guided drain placement 06/12/18. Purulent drainage noted in the DARREN drain at this time. Cultures are positive for E. coli, intermediate to Zosyn. Continue Rocephin 2 grams IV daily. (day 2 of treatment) Continue flagyl 500mg IV TID. (day 5 of treatment) Continue fluconazole 200mg IV daily. Dose-adjust antibiotics based on creatinine clearance. Duration of treatment depends on the clinical picture. Wound care and activity restrictions per the surgery team. (4) Perforated abdominal viscus Current Visit: No Status: Acute Initially was thought to likely be secondary to NSAID use. Concern that this perforation may be secondary to the patch they placed previously was laying under pocket of pus which kept irritating it and cause perforation again. POD #12 status post exp lap with antrectomy, closure of duodenal stump, and Dagoberto en Y. No evidence of perforation noted on most recent imaging. Continue Rocephin/flagyl as above. Continue fluconazole 200 mg IV daily. Duration of treatment depends on the clinical picture. Monitor renal and liver function and dose-adjust antibiotics. (5) Acute on chronic renal failure Current Visit: Yes Status: Resolved Likely secondary to severe sepsis. Improved. Continue to trend. Dose adjust antibiotics based on creatinine clearance. Avoid nephrotoxins as able. Qualifiers: Acute renal failure type: unspecified Chronic kidney disease stage: unspecified stage Qualified Code(s): N17.9 - Acute kidney failure, unspecified ; N18.9 - Chronic kidney disease, unspecified (6) Pneumoperitoneum Current Visit: Yes Status: Acute Secondary to perforated viscus. Further management per the general surgery team. (7) Allergy to multiple antibiotics Current Visit: Yes Status: Acute (8) VRE (vancomycin-resistant Enterococci) Current Visit: No Status: Inactive Patient has a history of VRE in the urine. Continue contact precautions per hospital protocol. (9) Venous thromboembolism Current Visit: Yes Status: Acute DVT study showed a chronic venous thrombosis in the right lesser saphenous vein. Anticoagulation per the primary team. (10) Encephalopathy Current Visit: Yes Status: Acute Etiology unclear. Improved. Patient wakes up and follows some commands. MRI of the brain negative. EEG showed slowing consistent with toxic metabolic encephalopathy. (11) Nausea and vomiting Current Visit: No Status: Acute Secondary to misplaced NG tube. Resolved. Qualifiers: Vomiting type: unspecified Vomiting Intractability: unspecified Qualified Code(s): R11.2 - Nausea with vomiting, unspecified - Subjective Interval history: Patient seen and examined with nursing at bedside. Extubated yesterday. Had nausea and vomiting overnight, resolved with re-placement of NG tube. No other new issues per nursing. Infect Dis PN-Objective Data - Labs CBC & Chem 7: 06/18/18 03:30 06/18/18 03:30 Labs: Laboratory Results - last 24 hr 06/15/18 06/16/18 06/16/18 23:53 01:00 01:58 WBC RBC Hgb Hct MCV MCH MCHC RDW Plt Count MPV Immature Gran % Seg Neutrophils % Lymphocytes % Monocytes % Eosinophils % Basophils % Neutrophils # Lymphocytes # Monocytes # Eosinophils # Basophils # Nucleated RBCs/100 WBC PT INR Sodium Potassium Chloride Carbon Dioxide BUN Creatinine Est GFR ( Amer) Est GFR (Non-Af Amer) BUN/Creatinine Ratio Glucose POC Glucose 142 H 121 H 127 H Calculated Osmolality Calcium Phosphorus Magnesium Specimen Rejected 06/16/18 06/16/18 06/16/18 03:03 03:47 04:55 WBC RBC Hgb Hct MCV MCH MCHC RDW Plt Count MPV Immature Gran % Seg Neutrophils % Lymphocytes % Monocytes % Eosinophils % Basophils % Neutrophils # Lymphocytes # Monocytes # Eosinophils # Basophils # Nucleated RBCs/100 WBC PT INR Sodium Potassium Chloride Carbon Dioxide BUN Creatinine Est GFR ( Amer) Est GFR (Non-Af Amer) BUN/Creatinine Ratio Glucose POC Glucose 138 H 173 H 187 H Calculated Osmolality Calcium Phosphorus Magnesium Specimen Rejected 06/16/18 06/16/18 06/16/18 05:53 06:44 07:55 WBC RBC Hgb Hct MCV MCH MCHC RDW Plt Count MPV Immature Gran % Seg Neutrophils % Lymphocytes % Monocytes % Eosinophils % Basophils % Neutrophils # Lymphocytes # Monocytes # Eosinophils # Basophils # Nucleated RBCs/100 WBC PT INR Sodium Potassium Chloride Carbon Dioxide BUN Creatinine Est GFR ( Amer) Est GFR (Non-Af Amer) BUN/Creatinine Ratio Glucose POC Glucose 200 H 212 H 161 H Calculated Osmolality Calcium Phosphorus Magnesium Specimen Rejected 06/16/18 06/16/18 06/16/18 09:01 09:58 11:17 WBC RBC Hgb Hct MCV MCH MCHC RDW Plt Count MPV Immature Gran % Seg Neutrophils % Lymphocytes % Monocytes % Eosinophils % Basophils % Neutrophils # Lymphocytes # Monocytes # Eosinophils # Basophils # Nucleated RBCs/100 WBC PT INR Sodium Potassium Chloride Carbon Dioxide BUN Creatinine Est GFR ( Amer) Est GFR (Non-Af Amer) BUN/Creatinine Ratio Glucose POC Glucose 112 H 92 148 H Calculated Osmolality Calcium Phosphorus Magnesium Specimen Rejected 06/16/18 06/16/18 06/16/18 12:46 13:50 16:01 WBC RBC Hgb Hct MCV MCH MCHC RDW Plt Count MPV Immature Gran % Seg Neutrophils % Lymphocytes % Monocytes % Eosinophils % Basophils % Neutrophils # Lymphocytes # Monocytes # Eosinophils # Basophils # Nucleated RBCs/100 WBC PT INR Sodium Potassium Chloride Carbon Dioxide BUN Creatinine Est GFR ( Amer) Est GFR (Non-Af Amer) BUN/Creatinine Ratio Glucose POC Glucose 195 H 208 H 194 H Calculated Osmolality Calcium Phosphorus Magnesium Specimen Rejected 06/16/18 06/16/18 06/17/18 19:41 23:18 03:31 WBC RBC Hgb Hct MCV MCH MCHC RDW Plt Count MPV Immature Gran % Seg Neutrophils % Lymphocytes % Monocytes % Eosinophils % Basophils % Neutrophils # Lymphocytes # Monocytes # Eosinophils # Basophils # Nucleated RBCs/100 WBC PT INR Sodium Potassium Chloride Carbon Dioxide BUN Creatinine Est GFR ( Amer) Est GFR (Non-Af Amer) BUN/Creatinine Ratio Glucose POC Glucose 190 H 192 H Calculated Osmolality Calcium Phosphorus Magnesium Specimen Rejected Contaminated 06/17/18 06/17/18 06/17/18 04:39 04:39 04:39 WBC 9.1 RBC 2.83 L Hgb 7.7 L Hct 25.1 L MCV 88.7 MCH 27.2 L MCHC 30.7 L RDW 16.0 H Plt Count 425 H MPV 9.9 Immature Gran % 4.4 H Seg Neutrophils % 77.4 Lymphocytes % 10.5 Monocytes % 5.1 Eosinophils % 2.0 Basophils % 0.6 Neutrophils # 7.1 Lymphocytes # 1.0 Monocytes # 0.5 Eosinophils # 0.2 Basophils # 0.1 Nucleated RBCs/100 WBC 0.2 H PT 13.4 H INR 1.2 Sodium 141 Potassium 3.4 L Chloride 108 H Carbon Dioxide 24 BUN 40 H Creatinine 0.83 Est GFR ( Amer) > 60 Est GFR (Non-Af Amer) > 60 BUN/Creatinine Ratio 48 H Glucose 199 H POC Glucose Calculated Osmolality 307 H Calcium 9.9 Phosphorus 3.5 Magnesium 1.9 Specimen Rejected Cultures: Cultures 06/11/18 09:34 Blood Culture - Final Peripheral Venipuncture No growth. Final report. 06/11/18 09:30 Blood Culture - Final Peripheral Venipuncture No growth. Final report. 06/12/18 12:28 Anaerobic Culture - Preliminary Aspirate At this time, no anaerobic growth is present. The culture will be finalized after 5 days of incubation. 06/12/18 12:28 Gram Stain - Final Aspirate 06/12/18 12:28 Wound Culture - Final Abdomen Escherichia coli 06/11/18 15:00 Sputum Culture - Final Aspirate Escherichia coli 06/06/18 03:35 Blood Culture - Final Peripheral Venipuncture No growth. Final report. 06/06/18 01:42 Blood Culture - Final Peripheral Venipuncture No growth. Final report. 06/04/18 09:10 Blood Culture - Final Peripheral Venipuncture No growth. Final report. 06/04/18 09:12 Blood Culture - Final Peripheral Venipuncture No growth. Final report. 06/02/18 20:12 Anaerobic Culture - Final Peritoneal Fluid No anaerobes were recovered. 06/06/18 09:20 Urine Culture - Final Urine,[place] No growth. 06/07/18 03:48 Sputum Culture - Final Sputum 06/02/18 20:12 Body Fluid Culture - Final Peritoneal Fluid Escherichia coli - Impressions Impressions KUB X-Ray 06/17/18 07:26 IMPRESSION: 1. The nasogastric tube proximal side port is in the mid esophagus. Further advancement is recommended. 2. Upper abdominal drains in place. D/ / 06/17/2018 09:06:58 Grey Jaeger MD / Dori Mcdonnell Interpreting Provider: Grey Jaeger MD Exam - Constitutional Vitals: Temp Pulse Resp BP Pulse Ox 99.0 F 126 21 148/93 98 06/17/18 07:15 06/17/18 09:00 06/17/18 09:00 06/17/18 09:00 06/17/18 09:00 General appearance: cooperative, no acute distress, obese - Head Head exam: Present: atraumatic, normal inspection, normocephalic - Eye Eye exam: Present: EOMI, normal appearance, PERRL Pupils: Present: normal accommodation - ENT ENT exam: Present: mucous membranes moist - Neck Neck exam: Present: normal inspection - Respiratory Respiratory exam: Present: CTAB. Absent: rales, respiratory distress, rhonchi, wheezes Additional comments: Moist cough noted on exam. - Cardiovascular Cardiovascular exam: Present: +S1, +S2, tachycardia. Absent: irregular rhythm - GI/Abdominal GI/Abdominal exam: Present: distended, hypoactive bowel sounds, soft, tenderness (generalized, mild) Additional comments: Midline abdominal incision with dressing C/D/I. DARREN drain noted to the left abdomen with scant serosanguinous drainage noted. Darren drain noted to the right abdomen x 2 with moderate amount of bilious contents noted. OG tube to LIWS with small amount of dark green gastric contents noted. [place] catheter noted to be draining clear yellow urine. - Extremities Exam Extremities exam: Present: normal inspection. Absent: joint swelling, pedal edema, tenderness - Neurological Exam Neurological exam: Present: altered (Drowsy, but responsive to questions and commands), no focal deficits - Skin Skin exam: Present: dry, intact, normal color, warm - Additional findings Additional findings: PICC line noted to the RUE with transparent dressing C/D/I. - VTE Documentation of Mechanical Device: Intermittent pneumatic compression device Consult Discharge Plan - Plan Referrals: Zafar Hinton MD [Primary Care Provider] - - Attending Attestation I examined this patient and my medical decision-making was reviewed with the Resident Physician. I agree with the documented findings, disposition and treatment plan as described except to the extent set forth below.
[2018-06-17] MEDS: Insulin DETEMIR 100 UNIT/ML X5UNITS SQ SCH ×2 (10:00→20:36)
[2018-06-17] MEDS: cefTRIAXone 2,000 MG in 0.9 % Sodium Chloride Mini Bag 100 ML IVPB SCH (13:32)
[2018-06-17] MEDS: Acetaminophen IV 1,000 MG/100 ML INFUS..BTL IVPB PRN (14:50)
[2018-06-17 14:59] LABS: Magnesium 2.2 mg/dL (1.6-2.6)
[2018-06-17] MEDS ORDERED: Clinimix E 5%-15% SOLUTION 2,000 ML, Parenteral Amino Acid 10% 200 ML with MVI, adult ... IVC SCH (17:00)
--- NOTE | 2018-06-17 17:24 | Electrocardiograph Report ---
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
--- NOTE | 2018-06-17 17:56 | Electrocardiograph Report ---
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
[2018-06-17] MEDS ORDERED: *HR* Metoprolol 5 MG/5 ML VIAL IVP ONE (22:07)
[2018-06-18] MEDS: Insulin LISPRO 300 UNITS/3 ML VIAL SQ SCH ×7 (00:01→23:01)
[2018-06-18 03:56] LABS: Eosinophils # 0.2 K/mcL (0.0-0.6); Hemoglobin 7.9 g/dL (12.9-16.9); Mean Corpuscular HGB Conc 30.4 g/dL (31.6-35.5); Mean Corpuscular Hemoglobin 27.6 pg (28.0-33.3); Mean Corpuscular Volume 90.9 fL (83.0-100.0); Mean Platelet Volume 9.8 fL (9.4-12.4); Nucleated Red Blood Cells 0.5 /100 WBC (0); Platelet Count 447 K/mcL (140-400); Red Blood Count 2.86 M/mcL (4.19-5.50)
[2018-06-18 04:15] LABS: BUN/Creatinine Ratio 44 (6-26); Blood Urea Nitrogen 35 mg/dL (6-20); Calcium 9.9 mg/dL (8.6-10.3); Carbon Dioxide 25 mEq/L (23-29); Chloride 110 mEq/L (98-107); Glucose 191 mg/dL (70-105); Magnesium 2.1 mg/dL (1.6-2.6); Osmolality,Calculated 309 (280-300); Phosphorous 3.2 mg/dL (2.7-4.5); Potassium 3.5 mEq/L (3.5-5.1); Sodium 143 mEq/L (136-145); Triglycerides 313 mg/dL (< 150); eGFR For Non-African Americans > 60 (> 60)
[2018-06-18] MEDS: Dexmedetomidine HCl 400 MCG/100 ML MLS IVC SCH ×4 (04:20→23:00)
[2018-06-18 04:35] LABS: Lymphocytes # 0.2 K/mcL (0.6-4.6); Monocytes # 0.2 K/mcL (0.0-1.3)
[2018-06-18] MEDS: Pantoprazole 40 MG VIAL IVP SCH ×2 (04:47→17:16)
[2018-06-18] MEDS: *HR* Heparin 5,000 UNIT/ML VIAL SQ SCH ×3 (04:47→20:46)
--- NOTE | 2018-06-18 07:23 | Pulmonology Progress Note ---
<Kota Brown W - Last Filed: 06/18/18 07:40> Date of Encounter: 06/18/18 Assessment and Plan (1) Acute perforated duodenal ulcer with hemorrhage Current Visit: No Status: Acute (2) Nausea and vomiting Current Visit: No Status: Acute Qualifiers: Vomiting type: unspecified Vomiting Intractability: unspecified Qualified Code(s): R11.2 - Nausea with vomiting, unspecified (3) Sepsis Current Visit: Yes Status: Acute Qualifiers: Sepsis type: sepsis due to unspecified organism Qualified Code(s): A41.9 - Sepsis, unspecified organism (4) Intra-abdominal abscess Current Visit: No Status: Acute (5) Encephalopathy Current Visit: Yes Status: Acute (6) Acute respiratory failure Current Visit: Yes Status: Acute Qualifiers: Respiratory failure complication: hypoxia and hypercapnia Qualified Code(s) : J96.01 - Acute respiratory failure with hypoxia; J96.02 - Acute respiratory failure with hypercapnia (7) Pneumonia due to E. coli Current Visit: Yes Status: Acute Qualifiers: Laterality: bilateral Lung location: lower lobe of lung Qualified Code(s) : J15.5 - Pneumonia due to Escherichia coli Objective PUL Vital signs: Last Vital Signs Temp 100.0 F H 06/18/18 04:02 Pulse 111 06/18/18 06:00 Resp 14 06/18/18 06:00 BP 132/79 06/18/18 06:00 Pulse Ox 97 06/18/18 06:00 Results - Laboratory Findings CBC and BMP: 06/18/18 03:30 06/18/18 03:30 ABG ABG pH 7.37 pH Units (7.32-7.45) 06/16/18 04:34 ABG pCO2 45 mmHg (35-45) 06/16/18 04:34 ABG pO2 98 mmHg (85-104) 06/16/18 04:34 ABG O2 Saturation 97 % (95-98) 06/16/18 04:34 PT/INR, D-dimer PT 13.4 Seconds (9.4-12.1) H 06/17/18 04:39 Abnormal lab findings: Abnormal lab results RBC 2.86 M/mcL (4.19-5.50) L 06/18/18 03:30 Hgb 7.9 g/dL (12.9-16.9) L 06/18/18 03:30 Hct 26.0 % (37.5-50.1) L 06/18/18 03:30 MCH 27.6 pg (28.0-33.3) L 06/18/18 03:30 MCHC 30.4 g/dL (31.6-35.5) L 06/18/18 03:30 RDW 16.0 % (11.5-14.5) H 06/18/18 03:30 Plt Count 447 K/mcL (140-400) H 06/18/18 03:30 Immature Gran % 4.4 % (0-4) H 06/17/18 04:39 Metamyelocytes % 2.0 % (0) H 06/18/18 03:30 Lymphocytes # 0.2 K/mcL (0.6-4.6) L 06/18/18 03:30 Nucleated RBCs/100 WBC 0.5 /100 WBC (0) H 06/18/18 03:30 Toxic Granulation Present (Not Present) A 06/08/18 04:35 Platelet Estimate Slight increase (Normal) H 06/18/18 03:30 Large Platelets Present (Not Present) A 06/07/18 03:30 PT 13.4 Seconds (9.4-12.1) H 06/17/18 04:39 ABG Total CO2 28 mEq/L (20-26) H 06/16/18 04:34 Chloride 110 mEq/L (98-107) H 06/18/18 03:30 BUN 35 mg/dL (6-20) H 06/18/18 03:30 BUN/Creatinine Ratio 44 (6-26) H 06/18/18 03:30 Glucose 191 mg/dL (70-105) H 06/18/18 03:30 POC Glucose 195 mg/dL (70-99) H 06/17/18 23:45 Calculated Osmolality 309 (280-300) H 06/18/18 03:30 Direct Bilirubin 0.3 mg/dL (0.0-0.2) H 06/12/18 03:20 Serum Total Protein 5.6 g/dL (6.4-8.9) L 06/12/18 03:20 Albumin 2.7 g/dL (3.5-5.7) L 06/12/18 03:20 Albumin/Globulin Ratio 0.9 (1.1-2.2) L 06/12/18 03:20 Triglycerides 313 mg/dL (< 150) H 06/18/18 03:30 Gastrin 117 pg/mL (0-100) H 06/03/18 21:23 Urine Clarity Cloudy (Clear) A 06/02/18 09:18 Urine Protein 100 mg/dL (Neg-Trace) H 06/02/18 09:18 Urine Blood Large (Negative) H 06/02/18 09:18 Ur Leukocyte Esterase Moderate (Negative) H 06/02/18 09:18 Urine Microscopic RBC TNTC per hpf (0-3) H 06/02/18 09:18 Urine Microscopic WBC 15-30 per hpf (0-3) H 06/02/18 09:18 Ur Squamous Epith Cells Many per lpf (None-Few) H 06/02/18 09:18 Ur Culture Indicated? NO. (NO) A 06/02/18 09:18 Enterobacteriac sp PCR DETECTED (Not Detect) A 06/02/18 09:18 E. coli (PCR) DETECTED (Not Detect) A 06/02/18 09:18 - Microbiology Findings Microbiology Findings: Microbiology, Last 48 Hours 06/11/18 09:34 Blood Culture - Final Peripheral Venipuncture No growth. Final report. 06/11/18 09:30 Blood Culture - Final Peripheral Venipuncture No growth. Final report. - Clinical Findings Intake & Output: Intake & Output 06/17/18 06/17/18 06/18/18 15:59 23:59 07:59 Intake Total 704 / 704 300 / 300 300 / 300 Output Total 1050 / 1050 1245 / 1245 525 / 525 Balance -346 / -346 -945 / -945 -225 / -225 Weight 105 kg 102.8 kg Consult Discharge Plan - Plan Referrals: Zafar Hinton MD [Primary Care Provider] - - Attending Attestation I examined this patient and my medical decision-making was reviewed with the Resident Physician. I agree with the documented findings, disposition and treatment plan as described except to the extent set forth below. We independently had [id number]-[id number] contact with the patient Patient seen and examined at bedside Labs, radiology, chart personally reviewed. Management was reviewed during multidisciplinary critical care rounds. MERCHANDISE EXAMINER: Patient remains confused and I suspect mixed delirium but generally much more calm and able to follow commands continue to focus on sleep-wake cycle confucianist of winces sensory deprivation and minimizing MERCHANDISE EXAMINER altering medications Pulm: Acceptable oxygenation on nasal cannula BiPAP as tolerated at night for concern of obstructive sleep apnea Cards: Remains in sinus tachycardic which is multifactorial but despite treatment of anxiety and pain this persists we will add a low-dose scheduled the beta kevin GI: GI prophylaxis has been given the patient is status post perforated viscus general surgery managing this and he has multiple drains in place for intra- abdominal fluid collections Nutrition: Continue TPN per dietary recommendations Renal: UOP Monitored, Cont to Trend sCr and monitor Electrolytes. ID: Continue antibiotics with planned to de-escalate per infectious disease recommendations patient has intra-abdominal infection secondary to Escherichia coli Heme/Onc: DVT prophylaxis given hemoglobin and platelets are stable Endo: Glucose Monitored Integ/MSK: Skin Care per routine ICU Nursing Protocol to prevent ulcers./Start PT/OT Lines: All lines examined without evidence of infection : Dispo: Suspect the patient is becoming stable enough for transition from ICU to stepdown level of care in the next 24-48 hours CODE: Full <Francine Aguirre E - Last Filed: 06/18/18 11:30> Date of Encounter: 06/18/18 Time of Encounter: 07:18 Assessment and Plan (1) Acute perforated duodenal ulcer with hemorrhage Current Visit: No Status: Acute Due to intra-abdominal abscess with purulant fluid collections. 1/2 initial blood cutures showed E. Coli. Iitial body fluid culture positive for E. Coli. Was extubated on 06/16/18. Encephalopathy continues to improve, patient answers questions appropriately. ID is managing infectious management, currentl on Rocephin, flagyl, fluconazole. (2) Intra-abdominal abscess Current Visit: No Status: Acute Patient had drain placed on 06/12/18 into abscess, being treated by ID for infection, Surgery managing drains (3) Sepsis Current Visit: No Status: Acute Due to intra-abdominal abscess with purulant fluid collections. 1/2 initial blood cultures showed E. Coli. Initial body fluid culture positive for E. Coli. Was extubated on 06/16/18. Encephalopathy continues to improve, patient answers questions appropriately. ID is managing infectious management, currently on Rocephin, flagyl, fluconazole. Patient remains tachycardic at this time, 5mg Metoprolol scheduled Q6 Qualifiers: Sepsis type: sepsis due to unspecified organism Qualified Code(s): A41.9 - Sepsis, unspecified organism (4) Encephalopathy Current Visit: Yes Status: Acute Resolving, likely metabolic Able to answer questions and follow commands (5) Perforated abdominal viscus Current Visit: No Status: Acute s/p exlap, gerri-en-y. Surgery is following. Wound cultures showed E. Coli intermediate to zosyn. Currently on Rocephin. (6) Pneumonia due to E. coli Current Visit: Yes Status: Acute Currently being treated by ID for E. Coli positive sputum culture that was intermediate to Zosyn. Currently on Rocephin Qualifiers: Laterality: bilateral Lung location: lower lobe of lung Qualified Code(s) : J15.5 - Pneumonia due to Escherichia coli (7) Bacteremia due to Gram-negative bacteria Current Visit: Yes Status: Acute 1/2 initial blood cultures positive for E. Coli. ID is on board. Repeat cultures show no growth. Continue current antibiotics per ID, deescalate as possible. (8) Anemia Current Visit: Yes Status: Resolved Hgb stable at 7.9 today, this has remained >7 since administration of PRBCs Qualifiers: Anemia type: other cause Other causes of anemia: other cause, not classified Qualified Code(s): D64.89 - Other specified anemias (9) Lactic acidosis Current Visit: Yes Status: Resolved Resolved, high of 5.1, last reading 1.1. (10) Diabetes Current Visit: Yes Status: Chronic Levamir 10 units SQ BID Qualifiers: Diabetes mellitus type: type 2 Diabetes mellitus termite helper insulin use: without termite helper use Diabetes mellitus complication status: with hyperglycemia Qualified Code(s): E11.65 - Type 2 diabetes mellitus with hyperglycemia (11) Acute on chronic renal failure Current Visit: Yes Status: Resolved Creatinine 0.79 today, will continue to avoid nephrotoxins and monitor electrolytes, replacing as necessary Qualifiers: Acute renal failure type: unspecified Chronic kidney disease stage: unspecified stage Qualified Code(s): N17.9 - Acute kidney failure, unspecified ; N18.9 - Chronic kidney disease, unspecified (12) VRE (vancomycin-resistant Enterococci) Current Visit: No Status: Inactive Hx of VRE in urine, Patient was treated as outpatient with antibiotics. On contact precautions (13) Nausea and vomiting Current Visit: No Status: Acute Managed with Zofran and Phenergan PRN Qualifiers: Vomiting type: unspecified Vomiting Intractability: unspecified Qualified Code(s): R11.2 - Nausea with vomiting, unspecified (14) DVT prophylaxis Current Visit: Yes Status: Acute Heparin SQ prophylaxis Subjective Principal diagnosis: Septic shock Interval history: Patient was successfully liberated from the vent on 06/15/18, tolerating this well from a respiratory standpoint. Patient was easily awoken and answered questions appropriately this morning. He said he was in minimal pain and feeling somewhat better. Last night he was somewhat confused, fidgeted with SARBJIT drain tubes but was reoriented and stopped. Objective PUL Vital signs: Last Vital Signs Temp 100.0 F H 06/18/18 04:02 Pulse 111 06/18/18 06:00 Resp 14 06/18/18 06:00 BP 132/79 06/18/18 06:00 Pulse Ox 97 06/18/18 06:00 General appearance: appears uncomfortable Eyes: nonicteric ENT: oropharynx moist Neck: no lymphadenopathy Effort: normal Auscultation: bilateral: diminished breath sounds (lower lobes) Cardiovascular: other (tachycardia, regular rhythm) Gastrointestinal: hypoactive bowel sounds, soft, non-tender, other (bilious output from NG tupe, SARBJIT drain right lower abd bilious, SARBJIT drain right upper abd purulent) Integumentary: normal Extremities: no cyanosis, edema (bilateral dependent LE edema) pupils equal and round Results - Laboratory Findings CBC and BMP: 06/18/18 03:30 06/18/18 03:30 ABG ABG pH 7.37 pH Units (7.32-7.45) 06/16/18 04:34 ABG pCO2 45 mmHg (35-45) 06/16/18 04:34 ABG pO2 98 mmHg (85-104) 06/16/18 04:34 ABG O2 Saturation 97 % (95-98) 06/16/18 04:34 PT/INR, D-dimer PT 13.4 Seconds (9.4-12.1) H 06/17/18 04:39 Abnormal lab findings: Abnormal lab results RBC 2.86 M/mcL (4.19-5.50) L 06/18/18 03:30 Hgb 7.9 g/dL (12.9-16.9) L 06/18/18 03:30 Hct 26.0 % (37.5-50.1) L 06/18/18 03:30 MCH 27.6 pg (28.0-33.3) L 06/18/18 03:30 MCHC 30.4 g/dL (31.6-35.5) L 06/18/18 03:30 RDW 16.0 % (11.5-14.5) H 06/18/18 03:30 Plt Count 447 K/mcL (140-400) H 06/18/18 03:30 Immature Gran % 4.4 % (0-4) H 06/17/18 04:39 Metamyelocytes % 2.0 % (0) H 06/18/18 03:30 Lymphocytes # 0.2 K/mcL (0.6-4.6) L 06/18/18 03:30 Nucleated RBCs/100 WBC 0.5 /100 WBC (0) H 06/18/18 03:30 Toxic Granulation Present (Not Present) A 06/08/18 04:35 Platelet Estimate Slight increase (Normal) H 06/18/18 03:30 Large Platelets Present (Not Present) A 06/07/18 03:30 PT 13.4 Seconds (9.4-12.1) H 06/17/18 04:39 ABG Total CO2 28 mEq/L (20-26) H 06/16/18 04:34 Chloride 110 mEq/L (98-107) H 06/18/18 03:30 BUN 35 mg/dL (6-20) H 06/18/18 03:30 BUN/Creatinine Ratio 44 (6-26) H 06/18/18 03:30 Glucose 191 mg/dL (70-105) H 06/18/18 03:30 POC Glucose 195 mg/dL (70-99) H 06/17/18 23:45 Calculated Osmolality 309 (280-300) H 06/18/18 03:30 Direct Bilirubin 0.3 mg/dL (0.0-0.2) H 06/12/18 03:20 Serum Total Protein 5.6 g/dL (6.4-8.9) L 06/12/18 03:20 Albumin 2.7 g/dL (3.5-5.7) L 06/12/18 03:20 Albumin/Globulin Ratio 0.9 (1.1-2.2) L 06/12/18 03:20 Triglycerides 313 mg/dL (< 150) H 06/18/18 03:30 Gastrin 117 pg/mL (0-100) H 06/03/18 21:23 Urine Clarity Cloudy (Clear) A 06/02/18 09:18 Urine Protein 100 mg/dL (Neg-Trace) H 06/02/18 09:18 Urine Blood Large (Negative) H 06/02/18 09:18 Ur Leukocyte Esterase Moderate (Negative) H 06/02/18 09:18 Urine Microscopic RBC TNTC per hpf (0-3) H 06/02/18 09:18 Urine Microscopic WBC 15-30 per hpf (0-3) H 06/02/18 09:18 Ur Squamous Epith Cells Many per lpf (None-Few) H 06/02/18 09:18 Ur Culture Indicated? NO. (NO) A 06/02/18 09:18 Enterobacteriac sp PCR DETECTED (Not Detect) A 06/02/18 09:18 E. coli (PCR) DETECTED (Not Detect) A 06/02/18 09:18 - Microbiology Findings Microbiology Findings: Microbiology, Last 48 Hours 06/11/18 09:34 Blood Culture - Final Peripheral Venipuncture No growth. Final report. 06/11/18 09:30 Blood Culture - Final Peripheral Venipuncture No growth. Final report. - Clinical Findings Intake & Output: Intake & Output 06/17/18 06/17/18 06/18/18 15:59 23:59 07:59 Intake Total 704 / 704 300 / 300 300 / 300 Output Total 1050 / 1050 1245 / 1245 525 / 525 Balance -346 / -346 -945 / -945 -225 / -225 Weight 105 kg 102.8 kg - VTE Documentation of Mechanical Device: Intermittent pneumatic compression device
[2018-06-18] MEDS: MetroNIDAZOLE 500 MG/100 ML 500 MG/100 ML BAG IVPB SCH ×3 (08:06→23:00)
[2018-06-18] MEDS: Furosemide 40 MG/4 ML VIAL IVP SCH (08:08)
[2018-06-18] MEDS: Nystatin SUSP 5 ML UD.LIQ PO SCH ×4 (08:10→19:33)
[2018-06-18] MEDS: Fluconazole 200 MG/100 ML 200 MG/100 ML BAG IVPB SCH (09:14)
[2018-06-18] MEDS: Insulin DETEMIR 100 UNIT/ML X5UNITS SQ SCH ×2 (09:14→19:51)
--- NOTE | 2018-06-18 09:14 | General Surgery Progress Note ---
<Pedro Ocasio R - Last Filed: 06/18/18 09:12> Date of Encounter: 06/18/18 Time of Encounter: 07:25 - Assessment and Plan (1) Perforated abdominal viscus Current Visit: No Status: Acute POD #13 s/p exploratory laparotomy, antrectomy, gerri en Y reconstruction with Drs. Serrano and Mary on 06/05/2018 Remains extubated. Currently on 2L/NC. Awake and alert, improved nausea Plan: PT/OT consulted Pulmonary toilet/ Incentive spirometry NG advanced yesterday prn antiemetic CCU care and medical management Continue TPN Comfort care and pain management Wound care daily Monitor drain and NG output PPI/ dvt prophylaxis (2) Diabetes Current Visit: Yes Status: Chronic Continue poc measurements and insulin as needed for glycemic control Qualifiers: Diabetes mellitus type: type 2 Diabetes mellitus fci insulin use: without fci use Diabetes mellitus complication status: with hyperglycemia Qualified Code(s): E11.65 - Type 2 diabetes mellitus with hyperglycemia (3) Bacteremia due to Gram-negative bacteria Current Visit: Yes Status: Acute Initial blood cultures positive for ecoli 06/11 sputum culture- ecoli / blood cultures pending 06/12 intra-abdominal abscess cultures- e-coli, intermediate sensitivity to Zosyn Per ID recommendations placed on Ceftriaxone and flagyl continue fluconazole (4) Anemia Current Visit: Yes Status: Resolved Hemoglobin 7.9 this am Has been stable near this level since transfusion on 06/07 Would like to see patient with Hemoglobin of at least 8 and preferable 9 Qualifiers: Anemia type: other cause Other causes of anemia: other cause, not classified Qualified Code(s): D64.89 - Other specified anemias (5) Acute on chronic renal failure Current Visit: Yes Status: Resolved Resolved, Ucr 0.79 this AM Replete electrolytes Avoid nephrotoxic agents Qualifiers: Acute renal failure type: unspecified Chronic kidney disease stage: unspecified stage Qualified Code(s): N17.9 - Acute kidney failure, unspecified ; N18.9 - Chronic kidney disease, unspecified Subjective Patient reports: no new complaints, nausea (improved), afebrile Narrative: Patient is more alert and cooperative today. Reports improvement in nausea and vomiting. Objective Vital Signs - Last 8 Hours Temp Pulse Resp BP Pulse Ox 06/18/18 08:00 110 06/18/18 07:25 99.7 F H 06/18/18 07:00 109 16 124/82 98 06/18/18 06:00 111 14 132/79 97 06/18/18 05:00 108 22 126/84 97 06/18/18 04:02 100.0 F H 06/18/18 04:00 111 17 142/89 98 06/18/18 03:00 112 18 128/91 99 06/18/18 02:00 105 16 127/88 99 Intake and Output 06/17/18 06/18/18 06/18/18 23:59 07:59 15:59 Intake Total 300 / 300 400 / 400 100 / 100 Output Total 1245 / 1245 905 / 905 0 / 0 Balance -945 / -945 -505 / -505 100 / 100 Intake: IV Fluids 300 / 300 400 / 400 100 / 100 PRECEDEX Premix 400 mcg In 100 100 / 100 100 / 100 ml @ 0.2 MCG/KG/HR 5.48 mls/hr IVC .[id number] [facility] Rx#:[id number] Ofirmev 1,000 mg/100 ml 1,000 100 / 100 mg In 100 ml @ 400 mls/hr IVPB Q6HR PRN Rx#:[id number] Flagyl Premix 500 MG/100 ML 500 100 / 100 100 / 100 mg In 100 ml @ 100 mls/hr IVPB Q8HR [facility] Rx#:[id number] Potassium Chloride 10 mEq/100mL 200 / 200 100 / 100 10 meq In 100 ml @ 100 mls/hr IVPB Q1H PRN Rx#:[id number] Output: Catheter 1100 / 1100 850 / 850 Gastric Drainage 120 / 120 0 / 0 Wound Drainage 25 / 25 55 / 55 0 / 0 Left Abdomen 0 / 0 0 / 0 0 / 0 Right Abdomen 20 / 20 35 / 35 0 / 0 Right Upper Abdomen 5 / 5 20 / 20 0 / 0 Other: Weight 102.8 kg Blood Glucose* 185 186 Patient Weight 06/18/18 23:59 Weight 102.8 kg - General physical appearance no distress, chronically ill - Eyes PERRL - ENT normal mucosa, atraumatic, normocephalic - Neck Neck exam: trachea midline - Respiratory normal expansion, normal respiratory effort - Cardiovascular Cardiovascular exam: Present: tachycardia - Abdomen Abdomen: Present: bowel sounds present, soft, tender (expected post surgical tenderness), wound (Right SARBJIT with less bilious output. ) - Incision Incision: Present: clean and dry, open (incision packed in places) - Integumentary no rash - Neurologic CN 2-12 grossly intact - Musculoskeletal normal posture - Psychiatric oriented to person, oriented to place - Labs 06/18/18 03:30 06/18/18 03:30 Diabetes panel 06/17/18 06/18/18 Range/Units 14:20 03:30 Sodium 143 (136-145) mEq/L Potassium 4.0 3.5 (3.5-5.1) mEq/L Chloride 110 H (98-107) mEq/L Carbon Dioxide 25 (23-29) mEq/L BUN 35 H (6-20) mg/dL Creatinine 0.79 (0.70-1.30) mg/dL Glucose 191 H (70-105) mg/dL Calcium 9.9 (8.6-10.3) mg/dL Triglycerides 313 H (< 150) mg/dL Calcium panel 06/18/18 Range/Units 03:30 Calcium 9.9 (8.6-10.3) mg/dL Phosphorus 3.2 (2.7-4.5) mg/dL Pituitary panel 06/17/18 06/18/18 Range/Units 14:20 03:30 Sodium 143 (136-145) mEq/L Potassium 4.0 3.5 (3.5-5.1) mEq/L Chloride 110 H (98-107) mEq/L Carbon Dioxide 25 (23-29) mEq/L BUN 35 H (6-20) mg/dL Creatinine 0.79 (0.70-1.30) mg/dL Glucose 191 H (70-105) mg/dL Calcium 9.9 (8.6-10.3) mg/dL Adrenal panel 06/17/18 06/18/18 Range/Units 14:20 03:30 Sodium 143 (136-145) mEq/L Potassium 4.0 3.5 (3.5-5.1) mEq/L Chloride 110 H (98-107) mEq/L Carbon Dioxide 25 (23-29) mEq/L BUN 35 H (6-20) mg/dL Creatinine 0.79 (0.70-1.30) mg/dL Glucose 191 H (70-105) mg/dL Calcium 9.9 (8.6-10.3) mg/dL - VTE Documentation of Mechanical Device: Intermittent pneumatic compression device Consult Discharge Plan - Plan Referrals: Zafar Hinton MD [Primary Care Provider] - <Benedict Serrano - Last Filed: 06/18/18 12:47> Date of Encounter: 06/18/18 - Assessment and Plan (1) Peritonitis Current Visit: Yes Status: Acute Objective Vital Signs - Last 8 Hours Temp Pulse Resp BP Pulse Ox 06/18/18 12:00 112 20 132/91 93 06/18/18 11:00 99.8 F H 125 20 129/103 94 06/18/18 10:00 124 20 116/99 98 06/18/18 09:00 118 20 123/94 97 06/18/18 08:00 110 06/18/18 07:25 99.7 F H 06/18/18 07:00 109 16 124/82 98 06/18/18 06:00 111 14 132/79 97 06/18/18 05:00 108 22 126/84 97 Intake and Output 06/17/18 06/18/18 06/18/18 23:59 07:59 15:59 Intake Total 300 / 300 400 / 400 500 / 500 Output Total 1245 / 1245 905 / 905 1450 / 1450 Balance -945 / -945 -505 / -505 -950 / -950 Intake: IV Fluids 300 / 300 400 / 400 500 / 500 PRECEDEX Premix 400 mcg In 100 100 / 100 100 / 100 100 / 100 ml @ 0.2 MCG/KG/HR 5.48 mls/hr IVC .[id number] [facility] Rx#:[id number] Ofirmev 1,000 mg/100 ml 1,000 100 / 100 mg In 100 ml @ 400 mls/hr IVPB Q6HR PRN Rx#:[id number] Diflucan Premix 200 MG/100 ML 100 / 100 200 mg In 100 ml @ 100 mls/hr IVPB DAILY [facility] Rx#:[id number] Flagyl Premix 500 MG/100 ML 500 100 / 100 100 / 100 100 / 100 mg In 100 ml @ 100 mls/hr IVPB Q8HR [facility] Rx#:[id number] Potassium Chloride 10 mEq/100mL 200 / 200 200 / 200 10 meq In 100 ml @ 100 mls/hr IVPB Q1H PRN Rx#:[id number] Output: Catheter 1100 / 1100 850 / 850 1450 / 1450 Gastric Drainage 120 / 120 0 / 0 Wound Drainage 25 55 / 55 0 / 0 Left Abdomen 0 / 0 0 / 0 0 / 0 Right Abdomen 20 20 35 / 35 0 / 0 Right Upper Abdomen 5 / 5 20 / 20 0 / 0 Other: Weight 102.8 kg Blood Glucose* 185 186 181 Patient Weight 06/18/18 23:59 Weight 102.8 kg - Labs 06/18/18 03:30 06/18/18 03:30 Diabetes panel 06/17/18 06/18/18 Range/Units 14:20 03:30 Sodium 143 (136-145) mEq/L Potassium 4.0 3.5 (3.5-5.1) mEq/L Chloride 110 H (98-107) mEq/L Carbon Dioxide 25 (23-29) mEq/L BUN 35 H (6-20) mg/dL Creatinine 0.79 (0.70-1.30) mg/dL Glucose 191 H (70-105) mg/dL Calcium 9.9 (8.6-10.3) mg/dL Triglycerides 313 H (< 150) mg/dL Calcium panel 06/18/18 Range/Units 03:30 Calcium 9.9 (8.6-10.3) mg/dL Phosphorus 3.2 (2.7-4.5) mg/dL Pituitary panel 06/17/18 06/18/18 Range/Units 14:20 03:30 Sodium 143 (136-145) mEq/L Potassium 4.0 3.5 (3.5-5.1) mEq/L Chloride 110 H (98-107) mEq/L Carbon Dioxide 25 (23-29) mEq/L BUN 35 H (6-20) mg/dL Creatinine 0.79 (0.70-1.30) mg/dL Glucose 191 H (70-105) mg/dL Calcium 9.9 (8.6-10.3) mg/dL Adrenal panel 06/17/18 06/18/18 Range/Units 14:20 03:30 Sodium 143 (136-145) mEq/L Potassium 4.0 3.5 (3.5-5.1) mEq/L Chloride 110 H (98-107) mEq/L Carbon Dioxide 25 (23-29) mEq/L BUN 35 H (6-20) mg/dL Creatinine 0.79 (0.70-1.30) mg/dL Glucose 191 H (70-105) mg/dL Calcium 9.9 (8.6-10.3) mg/dL - Attending Attestation patient seen and examined; i have reviewed all labs, imaging, and notes. i agree with the above assessment and plan and wish to add the following... still extuabted; good cough, afebrile; good UOP, decreased drain output patient has bowel sounds pulm toileting PT/OT appreciate ID recommendations in light of newest cultures to return positive ( years, e.coli) cares per ICU cont ICU cares
[2018-06-18] MEDS: *HR* Metoprolol 5 MG/5 ML VIAL IVP SCH ×3 (11:20→23:01)
[2018-06-18] MEDS: *HR* FentaNYL (PF) 100 MCG/2 ML VIAL IVP PRN (11:25)
--- NOTE | 2018-06-18 13:01 | Infectious Disease Progress No ---
Date of Encounter: 06/18/18 Time of Encounter: 08:40 - Assessment and Plan (1) Severe sepsis Current Visit: Yes Status: Acute The patient had 3 sepsis criteria on admission. Likely secondary to bacteremia and intra-abdominal abscess and new intra- abdominal phlegmon. Improved. Afebrile x 24 hours. Tachycardia persists since extubation. Blood cultures obtained 06/02/18 her +1 out of 2 sets for Escherichia coli. Repeat blood cultures drawn 06/04/18 are negative 2 sets. Repeat blood cultures drawn 06/06/18 are negative x 2 sets. Repeat blood cultures 2 sets drawn 06/11/18 are negative. Repeat sputum culture positive for E. coli. CT abdomen and pelvis shows phlegmon in the RUQ. Status post CT-guided drain placement 06/12/18 with cultures positive for E. coli. CT chest shows likely atelectasis. (2) Bacteremia due to Gram-negative bacteria Current Visit: Yes Status: Acute Causative organism: Escherichia coli per PCR. Source likely intra-abdominal abscess. Blood cultures obtained 06/02/18 are +1 out of 2 sets for Escherichia coli. Repeat blood cultures 06/04/18 are negative 2 sets. Repeat blood cultures 06/06/18 are negative x 2 sets. Repeat blood cultures 2 sets drawn 06/11/18 are negative. Continue Rocephin 2 grams IV daily. (day 8 of treatment) Duration of treatment depends on the clinical picture. Monitor renal function and a productive toxicity and dose adjust antibiotics. (3) Intra-abdominal abscess Current Visit: No Status: Acute Likely secondary to perforated viscus. Causative organism E. coli. POD #16 Status post exploratory laparotomy, drainage of intra-abdominal abscess 06/02/[address] Maria. Operative note was reviewed. Gross purulence noted and dropped, but no succus, bile, or staining was seen in the abdominal cavity. CT of the abdomen and pelvis 06/11/18 showed findings consistent with phlegmon in the RUQ. Status post CT-guided drain placement 06/12/18. Purulent drainage noted in the SARBJIT drain at this time. Cultures are positive for E. coli, intermediate to Zosyn. Continue Rocephin 2 grams IV daily. (day 3 of treatment) Continue flagyl 500mg IV TID. (day 6 of anaerobic coverage) Continue fluconazole 200mg IV daily. Dose-adjust antibiotics based on creatinine clearance. Duration of treatment depends on the clinical picture. Wound care and activity restrictions per the surgery team. (4) Perforated abdominal viscus Current Visit: No Status: Acute Initially was thought to likely be secondary to NSAID use. Concern that this perforation may be secondary to the patch they placed previously was laying under pocket of pus which kept irritating it and cause perforation again. POD #13 status post exp lap with antrectomy, closure of duodenal stump, and Dagoberto en Y. No evidence of perforation noted on most recent imaging. Continue Rocephin/flagyl as above. Continue fluconazole 200 mg IV daily. Duration of treatment depends on the clinical picture. Monitor renal and liver function and dose-adjust antibiotics. (5) Acute on chronic renal failure Current Visit: Yes Status: Resolved Likely secondary to severe sepsis. Improved. Continue to trend. Dose adjust antibiotics based on creatinine clearance. Avoid nephrotoxins as able. Qualifiers: Acute renal failure type: unspecified Chronic kidney disease stage: unspecified stage Qualified Code(s): N17.9 - Acute kidney failure, unspecified ; N18.9 - Chronic kidney disease, unspecified (6) Pneumoperitoneum Current Visit: Yes Status: Acute Secondary to perforated viscus. Further management per the general surgery team. (7) Allergy to multiple antibiotics Current Visit: Yes Status: Acute (8) VRE (vancomycin-resistant Enterococci) Current Visit: No Status: Inactive Patient has a history of VRE in the urine. Continue contact precautions per hospital protocol. (9) Venous thromboembolism Current Visit: Yes Status: Acute DVT study showed a chronic venous thrombosis in the right lesser saphenous vein. Anticoagulation per the primary team. (10) Encephalopathy Current Visit: Yes Status: Acute Etiology unclear. Improved. Patient wakes up and follows some commands. MRI of the brain negative. EEG showed slowing consistent with toxic metabolic encephalopathy. Improved. Patient awake, alert, oriented x 3. Follows commands appropriately currently, but did have some restlessness and confusion overnight. (11) Nausea and vomiting Current Visit: No Status: Acute Secondary to misplaced NG tube. Had one episode of vomiting overnight. Management per the primary and surgery teams. Qualifiers: Vomiting type: unspecified Vomiting Intractability: unspecified Qualified Code(s): R11.2 - Nausea with vomiting, unspecified - Subjective Interval history: Patient seen and examined. No acute events noted overnight. Patient did have episode of vomiting. Awake, alert, oriened x 3. Follows commands. NG tube remains patent with gastric content drainage. Patient denies chest pain or shortness of breath. Reports a cough productive of thick sputum. Reports some nausea, but no vomiting currently. Reports mild abdominal pain. No oral thrush or skin lesions noted. Infect Dis PN-Objective Data - Labs CBC & Chem 7: 06/18/18 03:30 06/18/18 13:55 Labs: Laboratory Results - last 24 hr 06/17/18 06/17/18 06/17/18 03:21 07:23 11:41 WBC RBC Hgb Hct MCV MCH MCHC RDW Plt Count MPV Seg Neutrophils % Band Neutrophils % Lymphocytes % Monocytes % Eosinophils % Metamyelocytes % Neutrophils # Lymphocytes # Monocytes # Eosinophils # Nucleated RBCs/100 WBC Platelet Estimate Immature Plt Fraction Sodium Potassium Chloride Carbon Dioxide BUN Creatinine Est GFR ( Amer) Est GFR (Non-Af Amer) BUN/Creatinine Ratio Glucose POC Glucose 184 H 225 H 198 H Calculated Osmolality Calcium Phosphorus Magnesium Triglycerides 06/17/18 06/17/18 06/17/18 14:20 16:25 19:36 WBC RBC Hgb Hct MCV MCH MCHC RDW Plt Count MPV Seg Neutrophils % Band Neutrophils % Lymphocytes % Monocytes % Eosinophils % Metamyelocytes % Neutrophils # Lymphocytes # Monocytes # Eosinophils # Nucleated RBCs/100 WBC Platelet Estimate Immature Plt Fraction Sodium Potassium 4.0 Chloride Carbon Dioxide BUN Creatinine Est GFR ( Amer) Est GFR (Non-Af Amer) BUN/Creatinine Ratio Glucose POC Glucose 185 H 165 H Calculated Osmolality Calcium Phosphorus Magnesium 2.2 Triglycerides 06/17/18 06/18/18 06/18/18 23:45 03:30 03:30 WBC 8.7 RBC 2.86 L Hgb 7.9 L Hct 26.0 L MCV 90.9 MCH 27.6 L MCHC 30.4 L RDW 16.0 H Plt Count 447 H MPV 9.8 Seg Neutrophils % 90.0 Band Neutrophils % 2.0 Lymphocytes % 2.0 Monocytes % 2.0 Eosinophils % 2.0 Metamyelocytes % 2.0 H Neutrophils # 8.0 Lymphocytes # 0.2 L Monocytes # 0.2 Eosinophils # 0.2 Nucleated RBCs/100 WBC 0.5 H Platelet Estimate Slight increase H Immature Plt Fraction 2.0 Sodium 143 Potassium 3.5 Chloride 110 H Carbon Dioxide 25 BUN 35 H Creatinine 0.79 Est GFR ( Amer) > 60 Est GFR (Non-Af Amer) > 60 BUN/Creatinine Ratio 44 H Glucose 191 H POC Glucose 195 H Calculated Osmolality 309 H Calcium 9.9 Phosphorus 3.2 Magnesium 2.1 Triglycerides 313 H Cultures: Cultures 06/12/18 12:28 Anaerobic Culture - Final Aspirate No anaerobes were recovered. 06/12/18 12:28 Fungal Culture - Preliminary Aspirate Yeast Species 06/11/18 09:34 Blood Culture - Final Peripheral Venipuncture No growth. Final report. 06/11/18 09:30 Blood Culture - Final Peripheral Venipuncture No growth. Final report. 06/12/18 12:28 Gram Stain - Final Aspirate 06/12/18 12:28 Wound Culture - Final Abdomen Escherichia coli 06/11/18 15:00 Sputum Culture - Final Aspirate Escherichia coli 06/06/18 03:35 Blood Culture - Final Peripheral Venipuncture No growth. Final report. 06/06/18 01:42 Blood Culture - Final Peripheral Venipuncture No growth. Final report. 06/04/18 09:10 Blood Culture - Final Peripheral Venipuncture No growth. Final report. 06/04/18 09:12 Blood Culture - Final Peripheral Venipuncture No growth. Final report. 06/02/18 20:12 Anaerobic Culture - Final Peritoneal Fluid No anaerobes were recovered. 06/06/18 09:20 Urine Culture - Final Urine,[place] No growth. 06/07/18 03:48 Sputum Culture - Final Sputum 06/02/18 20:12 Body Fluid Culture - Final Peritoneal Fluid Escherichia coli - Impressions Impressions KUB X-Ray 06/17/18 07:26 IMPRESSION: 1. The nasogastric tube proximal side port is in the mid esophagus. Further advancement is recommended. 2. Upper abdominal drains in place. Results of this examination were communicated to the patient's nurse, Stefanie Bello, at 8:54 a.m. on 06/17/2018 by the [facility]. D/ / 06/17/2018 09:06:58 Grey Jaeger MD / Dori Mcdonnell Interpreting Provider: Grey Jaeger MD X-Ray 06/17/18 13:28 IMPRESSION: Unremarkable KUB. NG tube extends below the left hemidiaphragm, into the upper abdomen, tip overlying the expected level of the stomach, side port at the gastric cardia level, tip at the level of the gastric body. D/ / Markus Higgins / Markus Higgins Interpreting Provider: Markus Higgins Exam - Constitutional Vitals: Temp Pulse Resp BP Pulse Ox 99.8 F H 112 20 132/91 93 06/18/18 11:00 06/18/18 12:00 06/18/18 12:00 06/18/18 12:00 06/18/18 12:00 General appearance: cooperative, no acute distress, obese - Head Head exam: Present: atraumatic, normal inspection, normocephalic - Eye Eye exam: Present: EOMI, normal appearance, PERRL Pupils: Present: normal accommodation - ENT ENT exam: Present: mucous membranes moist - Neck Neck exam: Present: normal inspection - Respiratory Respiratory exam: Present: CTAB. Absent: rales, respiratory distress, rhonchi, wheezes Additional comments: Moist cough productive of thick white sputum noted. - Cardiovascular Cardiovascular exam: Present: +S1, +S2, tachycardia. Absent: irregular rhythm - GI/Abdominal GI/Abdominal exam: Present: distended, hypoactive bowel sounds, soft, tenderness (mild, RUQ, LUQ) Additional comments: Midline abdominal incision dressing C/D/I. SARBJIT drain noted to the left abdomen with scant serosanguinous drainage. SARBJIT drain x 2 noted to the right abdomen with moderate amount of bilious contents noted. NG tube to LIWS with dark green gastric contents noted. [place] catheter noted to be draining clear yellow urine. - Extremities Exam Extremities exam: Present: normal inspection. Absent: joint swelling, pedal edema, tenderness - Neurological Exam Neurological exam: Present: alert, oriented X3, no focal deficits - Psychiatric Psychiatric exam: Present: normal affect, normal mood - Skin Skin exam: Present: dry, intact, normal color, warm - Additional findings Additional findings: PICC line noted to the RUE with transparent dressing C/D/I. - VTE Documentation of Mechanical Device: Intermittent pneumatic compression device Consult Discharge Plan - Plan Referrals: Zafar Hinton MD [Primary Care Provider] - - Attending Attestation I examined this patient and my medical decision-making was reviewed with the Resident Physician. I agree with the documented findings, disposition and treatment plan as described except to the extent set forth below.
[2018-06-18] MEDS: cefTRIAXone 2,000 MG in 0.9 % Sodium Chloride Mini Bag 100 ML IVPB SCH (13:44)
[2018-06-18] MEDS ORDERED: Clinimix E 5%-15% SOLUTION 2,000 ML, Parenteral Amino Acid 10% 200 ML with MVI, adult ... IVC SCH (17:00)
[2018-06-18] MEDS: Acetaminophen IV 1,000 MG/100 ML INFUS..BTL IVPB PRN (19:52)
[2018-06-19] MEDS: Insulin LISPRO 300 UNITS/3 ML VIAL SQ SCH ×6 (03:02→23:01)
[2018-06-19 03:11] LABS: Basophils # 0.1 K/mcL (0.0-0.2); Basophils % 0.6 %; Eosinophils # 0.2 K/mcL (0.0-0.6); Eosinophils % 2.2 %; Hematocrit 25.6 % (37.5-50.1); Hemoglobin 7.7 g/dL (12.9-16.9); Lymphocytes # 1.5 K/mcL (0.6-4.6); Lymphocytes % 17.5 %; Mean Corpuscular HGB Conc 30.1 g/dL (31.6-35.5); Mean Corpuscular Hemoglobin 27.2 pg (28.0-33.3); Mean Corpuscular Volume 90.5 fL (83.0-100.0); Mean Platelet Volume 9.6 fL (9.4-12.4); Monocytes # 0.7 K/mcL (0.0-1.3); Monocytes % 7.7 %; Neutrophils # 5.6 K/mcL (1.6-8.9); Nucleated Red Blood Cells 1.3 /100 WBC (0); Platelet Count 405 K/mcL (140-400); Red Blood Count 2.83 M/mcL (4.19-5.50)
[2018-06-19 03:29] LABS: Magnesium 1.9 mg/dL (1.6-2.6); Phosphorous 3.6 mg/dL (2.7-4.5)
[2018-06-19 03:30] LABS: BUN/Creatinine Ratio 41 (6-26); Blood Urea Nitrogen 34 mg/dL (6-20); Calcium 9.7 mg/dL (8.6-10.3); Carbon Dioxide 26 mEq/L (23-29); Chloride 110 mEq/L (98-107); Glucose 250 mg/dL (70-105); Osmolality,Calculated 314 (280-300); Potassium 3.9 mEq/L (3.5-5.1); Sodium 144 mEq/L (136-145); eGFR For Non-African Americans > 60 (> 60)
[2018-06-19] MEDS: Dexmedetomidine HCl 400 MCG/100 ML MLS IVC SCH ×4 (04:05→23:30)
[2018-06-19 04:06] LABS: Anisocytosis 1+ (Not Present); Hypochromasia Present (Not Present); Polychromasia 2+ (Not Present)
[2018-06-19] MEDS: *HR* Metoprolol 5 MG/5 ML VIAL IVP SCH ×5 (04:11→23:01)
[2018-06-19] MEDS: Pantoprazole 40 MG VIAL IVP SCH ×2 (05:06→17:19)
[2018-06-19] MEDS: *HR* Heparin 5,000 UNIT/ML VIAL SQ SCH ×3 (05:06→21:01)
--- NOTE | 2018-06-19 06:46 | Pulmonology Progress Note ---
<Kota Brown W - Last Filed: 06/19/18 09:17> Date of Encounter: 06/19/18 Assessment and Plan (1) Acute perforated duodenal ulcer with hemorrhage Current Visit: No Status: Acute (2) Nausea and vomiting Current Visit: No Status: Acute Qualifiers: Vomiting type: unspecified Vomiting Intractability: unspecified Qualified Code(s): R11.2 - Nausea with vomiting, unspecified (3) Sepsis Current Visit: Yes Status: Acute Qualifiers: Sepsis type: sepsis due to unspecified organism Qualified Code(s): A41.9 - Sepsis, unspecified organism (4) Intra-abdominal abscess Current Visit: No Status: Acute (5) Encephalopathy Current Visit: Yes Status: Acute (6) Acute respiratory failure Current Visit: Yes Status: Acute Qualifiers: Respiratory failure complication: hypoxia and hypercapnia Qualified Code(s) : J96.01 - Acute respiratory failure with hypoxia; J96.02 - Acute respiratory failure with hypercapnia (7) Pneumonia due to E. coli Current Visit: Yes Status: Acute Qualifiers: Laterality: bilateral Lung location: lower lobe of lung Qualified Code(s) : J15.5 - Pneumonia due to Escherichia coli Objective PUL Vital signs: Last Vital Signs Temp 99.9 F H 06/19/18 08:38 Pulse 110 06/19/18 09:00 Resp 16 06/19/18 09:00 BP 119/81 06/19/18 09:00 Pulse Ox 97 06/19/18 09:00 Results - Laboratory Findings CBC and BMP: 06/19/18 03:00 06/19/18 03:00 ABG ABG pH 7.37 pH Units (7.32-7.45) 06/16/18 04:34 ABG pCO2 45 mmHg (35-45) 06/16/18 04:34 ABG pO2 98 mmHg (85-104) 06/16/18 04:34 ABG O2 Saturation 97 % (95-98) 06/16/18 04:34 PT/INR, D-dimer PT 13.4 Seconds (9.4-12.1) H 06/17/18 04:39 Abnormal lab findings: Abnormal lab results RBC 2.83 M/mcL (4.19-5.50) L 06/19/18 03:00 Hgb 7.7 g/dL (12.9-16.9) L 06/19/18 03:00 Hct 25.6 % (37.5-50.1) L 06/19/18 03:00 MCH 27.2 pg (28.0-33.3) L 06/19/18 03:00 MCHC 30.1 g/dL (31.6-35.5) L 06/19/18 03:00 RDW 16.0 % (11.5-14.5) H 06/19/18 03:00 Plt Count 405 K/mcL (140-400) H 06/19/18 03:00 Immature Gran % 8.0 % (0-4) H 06/19/18 03:00 Metamyelocytes % 2.0 % (0) H 06/18/18 03:30 Nucleated RBCs/100 WBC 1.3 /100 WBC (0) H 06/19/18 03:00 Toxic Granulation Present (Not Present) A 06/08/18 04:35 Platelet Estimate Slight increase (Normal) H 06/19/18 03:00 Large Platelets Present (Not Present) A 06/07/18 03:30 Polychromasia 2+ (Not Present) A 06/19/18 03:00 Hypochromasia Present (Not Present) A 06/19/18 03:00 Anisocytosis 1+ (Not Present) A 06/19/18 03:00 PT 13.4 Seconds (9.4-12.1) H 06/17/18 04:39 ABG Total CO2 28 mEq/L (20-26) H 06/16/18 04:34 Chloride 110 mEq/L (98-107) H 06/19/18 03:00 BUN 34 mg/dL (6-20) H 06/19/18 03:00 BUN/Creatinine Ratio 41 (6-26) H 06/19/18 03:00 Glucose 250 mg/dL (70-105) H 06/19/18 03:00 POC Glucose 191 mg/dL (70-99) H 06/18/18 22:40 Calculated Osmolality 314 (280-300) H 06/19/18 03:00 Direct Bilirubin 0.3 mg/dL (0.0-0.2) H 06/12/18 03:20 Serum Total Protein 5.6 g/dL (6.4-8.9) L 06/12/18 03:20 Albumin 2.7 g/dL (3.5-5.7) L 06/12/18 03:20 Albumin/Globulin Ratio 0.9 (1.1-2.2) L 06/12/18 03:20 Triglycerides 313 mg/dL (< 150) H 06/18/18 03:30 Gastrin 117 pg/mL (0-100) H 06/03/18 21:23 Urine Clarity Cloudy (Clear) A 06/02/18 09:18 Urine Protein 100 mg/dL (Neg-Trace) H 06/02/18 09:18 Urine Blood Large (Negative) H 06/02/18 09:18 Ur Leukocyte Esterase Moderate (Negative) H 06/02/18 09:18 Urine Microscopic RBC TNTC per hpf (0-3) H 06/02/18 09:18 Urine Microscopic WBC 15-30 per hpf (0-3) H 06/02/18 09:18 Ur Squamous Epith Cells Many per lpf (None-Few) H 06/02/18 09:18 Ur Culture Indicated? NO. (NO) A 06/02/18 09:18 Enterobacteriac sp PCR DETECTED (Not Detect) A 06/02/18 09:18 E. coli (PCR) DETECTED (Not Detect) A 06/02/18 09:18 - Microbiology Findings Microbiology Findings: Microbiology, Last 48 Hours 06/12/18 12:28 Anaerobic Culture - Final Aspirate No anaerobes were recovered. 06/12/18 12:28 Fungal Culture - Preliminary Aspirate Yeast Species - Clinical Findings Intake & Output: Intake & Output 06/18/18 06/19/18 06/19/18 23:59 07:59 15:59 Intake Total 400 / 400 954 / 954 100 / 100 Output Total 1352 / 1352 400 / 400 510 / 510 Balance -952 / -952 554 / 554 -410 / -410 Weight 104 kg Consult Discharge Plan - Plan Referrals: Zafar Hinton MD [Primary Care Provider] - - Attending Attestation I examined this patient and my medical decision-making was reviewed with the Resident Physician. I agree with the documented findings, disposition and treatment plan as described except to the extent set forth below. We independently had [id number] contact with the patient Patient seen and examined at bedside Labs, radiology, chart personally reviewed. Management was reviewed during multidisciplinary critical care rounds. 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 ID: Continue treatment for intra-abdominal sepsis including Escherichia coli bacteremia infectious disease managing selection and duration of antimicrobials appreciate their recommendations Heme/Onc: DVT prophylaxis given Endo: Glucose Monitored Integ/MSK: Plan for out of bed to chair today and PTOT consultation Skin Care per routine ICU Nursing Protocol to prevent ulcers. Lines: All lines examined without evidence of infection : Dispo: Can likely transition from ICU to stepdown unit over the next 24 hours CODE: Full <KumarNathaniel Steven - Last Filed: 06/19/18 10:46> Date of Encounter: 06/19/18 Time of Encounter: 07:00 Assessment and Plan (1) Sepsis Current Visit: No Status: Acute Most likely 2/2 intraabdominal abscess with purulant fluid collections. 1/2 initial blood cultures pos E coli 06/02/18. Initial body fluid culture pos E coli 06/02/18. Sputum culture pos for Ecoli 06/11/18. IR drained abscess culture pos for E coli and yeast 06/12/18. Repeat blood cultures ng. On 2g ceftriaxone, metronidazole, and fluconazole managed by ID currently. Etubated 06/15/18. Shock resolved and BP stable. Tachycardic and metoprolol started. WBC 8.7. Tmax 101.1 overnight. Drains still in place with continued output. Having fluctuating periods of encephalopathy and anxiety still, will continue to work on sleep/ wake normalization. PT/OT today. He is much improved overall and can likely step down soon. Qualifiers: Sepsis type: Escherichia coli Qualified Code(s): A41.51 - Sepsis due to Escherichia coli [E. coli] (2) Pneumonia due to E. coli Current Visit: Yes Status: Acute Resolved. Sputum pos for E coli 06/11/18, sensitive to ceftriaxone which he is on. Small bilateral lower lung consolidation on chest CT 06/11/18. No signs of infection today, afebrile, wbc 8.7, and breathing is much improved since extubation. Qualifiers: Laterality: bilateral Lung location: lower lobe of lung Qualified Code(s) : J15.5 - Pneumonia due to Escherichia coli (3) Bacteremia due to Gram-negative bacteria Current Visit: Yes Status: Acute Resolved. Initial blood cultures 06/02/18 grew E coli. No pos blood cultures since. (4) Acute on chronic renal failure Current Visit: Yes Status: Resolved Resolved. Cr 0.83 today. Will trend Cr, monitor and replace elctrolytes as needed. Qualifiers: Acute renal failure type: unspecified Chronic kidney disease stage: unspecified stage Qualified Code(s): N17.9 - Acute kidney failure, unspecified ; N18.9 - Chronic kidney disease, unspecified (5) Perforated viscus Current Visit: Yes Status: Acute S/p exlap, washout, [id number]. Surg following. Repeat wound cultures grew E coli and yeast, intermediate to zosyn. Continue current ceftriaxone and fluconazole. (6) Lactic acidosis Current Visit: Yes Status: Resolved Resolved. Lactic high of 5.1, latest 1.1 (7) Anemia Current Visit: Yes Status: Resolved Hgb been stable recently. 8.7 today. Qualifiers: Anemia type: other cause Other causes of anemia: other cause, not classified Qualified Code(s): D64.89 - Other specified anemias (8) Diabetes Current Visit: Yes Status: Chronic Hx of DM. On TPN, glucose trending high 100's since infusion stopped. Will increase basal from 10 to 20 BID and continue high SSI for now. 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 Treated with outpatient abx with ID. On contact precautions. (10) Obesity (BMI 30.0-34.9) Current Visit: Yes Status: Chronic BMI 34.6. Will recommend lifestyle modifications upon dc. (11) DVT prophylaxis Current Visit: Yes Status: Acute Chemical prophylaxis Subjective Principal diagnosis: Septic shock Interval history: Doing better overnight, no reports of agitation/confusion last night. No new complaints today, breathing better, some abdominal pain, some nausea still but better, no emesis events, ng and drains still in place. Objective PUL Vital signs: Last Vital Signs Temp 99.7 F H 06/19/18 03:00 Pulse 96 06/19/18 06:05 Resp 20 06/19/18 06:05 BP 94/82 06/19/18 06:05 Pulse Ox 95 06/19/18 06:05 General appearance: no acute distress, lethargic (sedation on board but easily arousable and conversational ) Eyes: nonicteric ENT: oropharynx dry Auscultation: bilateral: diminished breath sounds Cardiovascular: other (tachycardic ) Gastrointestinal: absent bowel sounds, soft, tender Extremities: no cyanosis, no edema, other (R great toe at TM junction erythematous, slightly inflamed, not acutely painful to palpation. ) non-focal exam, other (AOx2) Results - Laboratory Findings CBC and BMP: 06/19/18 03:00 06/19/18 03:00 ABG ABG pH 7.37 pH Units (7.32-7.45) 06/16/18 04:34 ABG pCO2 45 mmHg (35-45) 06/16/18 04:34 ABG pO2 98 mmHg (85-104) 06/16/18 04:34 ABG O2 Saturation 97 % (95-98) 06/16/18 04:34 PT/INR, D-dimer PT 13.4 Seconds (9.4-12.1) H 06/17/18 04:39 Abnormal lab findings: Abnormal lab results RBC 2.83 M/mcL (4.19-5.50) L 06/19/18 03:00 Hgb 7.7 g/dL (12.9-16.9) L 06/19/18 03:00 Hct 25.6 % (37.5-50.1) L 06/19/18 03:00 MCH 27.2 pg (28.0-33.3) L 06/19/18 03:00 MCHC 30.1 g/dL (31.6-35.5) L 06/19/18 03:00 RDW 16.0 % (11.5-14.5) H 06/19/18 03:00 Plt Count 405 K/mcL (140-400) H 06/19/18 03:00 Immature Gran % 8.0 % (0-4) H 06/19/18 03:00 Metamyelocytes % 2.0 % (0) H 06/18/18 03:30 Nucleated RBCs/100 WBC 1.3 /100 WBC (0) H 06/19/18 03:00 Toxic Granulation Present (Not Present) A 06/08/18 04:35 Platelet Estimate Slight increase (Normal) H 06/19/18 03:00 Large Platelets Present (Not Present) A 06/07/18 03:30 Polychromasia 2+ (Not Present) A 06/19/18 03:00 Hypochromasia Present (Not Present) A 06/19/18 03:00 Anisocytosis 1+ (Not Present) A 06/19/18 03:00 PT 13.4 Seconds (9.4-12.1) H 06/17/18 04:39 ABG Total CO2 28 mEq/L (20-26) H 06/16/18 04:34 Chloride 110 mEq/L (98-107) H 06/19/18 03:00 BUN 34 mg/dL (6-20) H 06/19/18 03:00 BUN/Creatinine Ratio 41 (6-26) H 06/19/18 03:00 Glucose 250 mg/dL (70-105) H 06/19/18 03:00 POC Glucose 191 mg/dL (70-99) H 06/18/18 22:40 Calculated Osmolality 314 (280-300) H 06/19/18 03:00 Direct Bilirubin 0.3 mg/dL (0.0-0.2) H 06/12/18 03:20 Serum Total Protein 5.6 g/dL (6.4-8.9) L 06/12/18 03:20 Albumin 2.7 g/dL (3.5-5.7) L 06/12/18 03:20 Albumin/Globulin Ratio 0.9 (1.1-2.2) L 06/12/18 03:20 Triglycerides 313 mg/dL (< 150) H 06/18/18 03:30 Gastrin 117 pg/mL (0-100) H 06/03/18 21:23 Urine Clarity Cloudy (Clear) A 06/02/18 09:18 Urine Protein 100 mg/dL (Neg-Trace) H 06/02/18 09:18 Urine Blood Large (Negative) H 06/02/18 09:18 Ur Leukocyte Esterase Moderate (Negative) H 06/02/18 09:18 Urine Microscopic RBC TNTC per hpf (0-3) H 06/02/18 09:18 Urine Microscopic WBC 15-30 per hpf (0-3) H 06/02/18 09:18 Ur Squamous Epith Cells Many per lpf (None-Few) H 06/02/18 09:18 Ur Culture Indicated? NO. (NO) A 06/02/18 09:18 Enterobacteriac sp PCR DETECTED (Not Detect) A 06/02/18 09:18 E. coli (PCR) DETECTED (Not Detect) A 06/02/18 09:18 - Microbiology Findings Microbiology Findings: Microbiology, Last 48 Hours 06/12/18 12:28 Anaerobic Culture - Final Aspirate No anaerobes were recovered. 06/12/18 12:28 Fungal Culture - Preliminary Aspirate Yeast Species - Clinical Findings Intake & Output: Intake & Output 06/18/18 06/18/18 06/19/18 15:59 23:59 07:59 Intake Total 600 / 600 400 / 400 854 / 854 Output Total 1450 / 1450 1352 / 1352 400 / 400 Balance -850 / -850 -952 / -952 454 / 454 Weight 104 kg - VTE Documentation of Mechanical Device: Intermittent pneumatic compression device
[2018-06-19] MEDS: MetroNIDAZOLE 500 MG/100 ML 500 MG/100 ML BAG IVPB SCH ×3 (08:32→23:00)
[2018-06-19] MEDS: Insulin DETEMIR 100 UNIT/ML X5UNITS SQ SCH ×2 (08:35→19:54)
[2018-06-19] MEDS: Nystatin SUSP 5 ML UD.LIQ PO SCH ×4 (08:35→19:54)
[2018-06-19] MEDS: Furosemide 40 MG/4 ML VIAL IVP SCH (08:35)
[2018-06-19] MEDS: Fluconazole 200 MG/100 ML 200 MG/100 ML BAG IVPB SCH (08:36)
--- NOTE | 2018-06-19 08:45 | General Surgery Progress Note ---
<Pedro Ocasio R - Last Filed: 06/19/18 09:09> Date of Encounter: 06/19/18 Time of Encounter: 07:45 - Assessment and Plan (1) Perforated abdominal viscus Current Visit: No Status: Acute POD #14 s/p exploratory laparotomy, antrectomy, gerri en Y reconstruction with Drs. Serrano and Mary on 06/05/2018 Remains extubated. Sats in 90's on room air. Awake and alert, improved nausea Plan: Will order upper GI with gastrografin today PT/OT consulted Activity as tolerated with assistance Pulmonary toilet/ Incentive spirometry NG to LIWS prn antiemetic Continue TPN Comfort care and pain management Wound care daily Monitor drain and NG output PPI/ dvt prophylaxis (2) Bacteremia due to Gram-negative bacteria Current Visit: Yes Status: Acute Initial blood cultures positive for ecoli 06/11 sputum culture- ecoli 06/11 blood cultures no growth 06/12 intra-abdominal abscess cultures- e-coli, intermediate sensitivity to Zosyn Per ID recommendations placed on Ceftriaxone and flagyl continue fluconazole (3) Anemia Current Visit: Yes Status: Resolved Hemoglobin 7.9 this am Has been stable near this level since transfusion on 06/07 Would like to see patient with Hemoglobin of at least 8 and preferable 9 (4) Diabetes Current Visit: Yes Status: Chronic Continue poc measurements and insulin as needed for glycemic control (5) Acute on chronic renal failure Current Visit: Yes Status: Resolved Resolved, Monitor Ucr and output Replete electrolytes Avoid nephrotoxic agents Subjective Patient reports: no new complaints, pain is less, flatus, no bowel movement, afebrile Narrative: Reports less nausea, no recent vomiting. Reports passing flatus, would like to start drinking. Objective Vital Signs - Last 8 Hours Temp Pulse Resp BP Pulse Ox 06/19/18 08:38 99.9 F H 06/19/18 07:00 102 24 114/83 94 06/19/18 06:05 96 20 94/82 95 06/19/18 05:00 97 16 86/70 95 06/19/18 04:04 102 20 102/81 95 06/19/18 03:00 99.7 F H 94 17 105/70 97 06/19/18 02:17 92 19 113/74 97 06/19/18 01:00 93 17 116/85 97 Intake and Output 06/18/18 06/19/18 06/19/18 23:59 07:59 15:59 Intake Total 400 / 400 954 / 954 Output Total 1352 / 1352 400 / 400 510 / 510 Balance -952 / -952 554 / 554 -510 / -510 Intake: IV Fluids 400 / 400 954 / 954 PRECEDEX Premix 400 mcg In 100 200 / 200 100 / 100 ml @ 0.2 MCG/KG/HR 5.48 mls/hr IVC .[id number] [facility] Rx#:[id number] Ofirmev 1,000 mg/100 ml 1,000 100 / 100 mg In 100 ml @ 400 mls/hr IVPB Q6HR PRN Rx#:[id number] Intralipid 20% 250 ML @ 21 mls/ 250 / 250 hr IVPB [id number]@1700 [facility] Rx#: [id number] Magnesium Sulfate 2 GM In 0.9 % 104 / 104 Sodium Chloride 100 ML @ 52 mls/hr IVPB Q6H PRN Rx#: [id number] Flagyl Premix 500 MG/100 ML 500 100 / 100 100 / 100 mg In 100 ml @ 100 mls/hr IVPB Q8HR [facility] Rx#:[id number] Potassium Chloride 10 mEq/100mL 400 / 400 10 meq In 100 ml @ 100 mls/hr IVPB Q1H PRN Rx#:[id number] Oral 0 / 0 Output: Catheter 1000 / 1000 400 / 400 450 / 450 Gastric Drainage 300 / 300 Wound Drainage 52 / 52 0 / 0 60 / 60 Left Abdomen 2 / 2 0 / 0 0 / 0 Right Abdomen 24 / 24 0 / 0 40 / 40 Right Upper Abdomen 26 / 26 0 / 0 20 / 20 Other: Weight 104 kg Blood Glucose* 196 198 - General physical appearance no distress, no pain, chronically ill - Eyes PERRL, normal ocular movement - ENT normal mucosa, atraumatic, normocephalic - Neck Neck exam: trachea midline, no venous distension - Respiratory normal expansion, normal respiratory effort - Cardiovascular Cardiovascular exam: Present: tachycardia - Abdomen Abdomen: Present: bowel sounds present, soft, tender (expected post surgical tenderness), wound (SARBJIT drainage is decreasing, remains bilious from right drain) - Incision Incision: Present: clean and dry, open (Interval packing present at incision) - Integumentary no rash - Neurologic CN 2-12 grossly intact - Musculoskeletal normal posture - Psychiatric oriented to time, oriented to person, oriented to place, speech is normal - Labs 06/19/18 03:00 06/19/18 03:00 Diabetes panel 06/18/18 06/19/18 Range/Units 13:55 03:00 Sodium 144 (136-145) mEq/L Potassium 4.1 3.9 (3.5-5.1) mEq/L Chloride 110 H (98-107) mEq/L Carbon Dioxide 26 (23-29) mEq/L BUN 34 H (6-20) mg/dL Creatinine 0.83 (0.70-1.30) mg/dL Glucose 250 H (70-105) mg/dL Calcium 9.7 (8.6-10.3) mg/dL Calcium panel 06/19/18 06/19/18 Range/Units 03:00 03:00 Calcium 9.7 (8.6-10.3) mg/dL Phosphorus 3.6 (2.7-4.5) mg/dL Pituitary panel 06/18/18 06/19/18 Range/Units 13:55 03:00 Sodium 144 (136-145) mEq/L Potassium 4.1 3.9 (3.5-5.1) mEq/L Chloride 110 H (98-107) mEq/L Carbon Dioxide 26 (23-29) mEq/L BUN 34 H (6-20) mg/dL Creatinine 0.83 (0.70-1.30) mg/dL Glucose 250 H (70-105) mg/dL Calcium 9.7 (8.6-10.3) mg/dL Adrenal panel 06/18/18 06/19/18 Range/Units 13:55 03:00 Sodium 144 (136-145) mEq/L Potassium 4.1 3.9 (3.5-5.1) mEq/L Chloride 110 H (98-107) mEq/L Carbon Dioxide 26 (23-29) mEq/L BUN 34 H (6-20) mg/dL Creatinine 0.83 (0.70-1.30) mg/dL Glucose 250 H (70-105) mg/dL Calcium 9.7 (8.6-10.3) mg/dL - VTE Documentation of Mechanical Device: Intermittent pneumatic compression device Consult Discharge Plan - Plan Referrals: Zafar Hinton MD [Primary Care Provider] - <Benedict Serrano - Last Filed: 06/19/18 12:07> Date of Encounter: 06/19/18 - Assessment and Plan (1) Peritonitis Current Visit: Yes Status: Acute Objective Vital Signs - Last 8 Hours Temp Pulse Resp BP Pulse Ox 06/19/18 12:00 135 24 130/98 98 06/19/18 11:57 100.3 F H 06/19/18 11:00 124 16 109/76 97 06/19/18 10:00 122 20 109/92 06/19/18 09:00 110 16 119/81 97 06/19/18 08:38 99.9 F H 06/19/18 07:00 102 24 114/83 94 06/19/18 06:05 96 20 94/82 95 06/19/18 05:00 97 16 86/70 95 Intake and Output 06/18/18 06/19/18 06/19/18 23:59 07:59 15:59 Intake Total 400 / 400 954 / 954 300 / 300 Output Total 1352 / 1352 400 / 400 1870 / 1870 Balance -952 / -952 554 / 554 -1570 / -1570 Intake: IV Fluids 400 / 400 954 / 954 300 / 300 PRECEDEX Premix 400 mcg In 100 200 / 200 100 / 100 100 / 100 ml @ 0.2 MCG/KG/HR 5.48 mls/hr IVC .[id number] [facility] Rx#:[id number] Ofirmev 1,000 mg/100 ml 1,000 100 / 100 mg In 100 ml @ 400 mls/hr IVPB Q6HR PRN Rx#:[id number] Intralipid 20% 250 ML @ 21 mls/ 250 / 250 hr IVPB MoWeFr@1700 [facility] Rx#: [id number] Diflucan Premix 200 MG/100 ML 100 / 100 200 mg In 100 ml @ 100 mls/hr IVPB DAILY [facility] Rx#:[id number] Magnesium Sulfate 2 GM In 0.9 % 104 / 104 Sodium Chloride 100 ML @ 52 mls/hr IVPB Q6H PRN Rx#: [id number] Flagyl Premix 500 MG/100 ML 500 100 / 100 100 / 100 100 / 100 mg In 100 ml @ 100 mls/hr IVPB Q8HR [place] Rx#:[id number] Potassium Chloride 10 mEq/100mL 400 / 400 10 meq In 100 ml @ 100 mls/hr IVPB Q1H PRN Rx#:[id number] Oral 0 / 0 Output: Catheter 1000 / 1000 400 / 400 1800 / 1800 Gastric Drainage 300 / 300 Wound Drainage 52 / 52 0 / 0 70 / 70 Left Abdomen 2 / 2 0 / 0 0 / 0 Right Abdomen 24 / 24 0 / 0 50 / 50 Right Upper Abdomen 26 / 26 0 / 0 Other: Weight 104 kg Blood Glucose* 196 170 - Labs 06/19/18 03:00 06/19/18 03:00 Diabetes panel 06/18/18 06/19/18 Range/Units 13:55 03:00 Sodium 144 (136-145) mEq/L Potassium 4.1 3.9 (3.5-5.1) mEq/L Chloride 110 H (98-107) mEq/L Carbon Dioxide 26 (23-29) mEq/L BUN 34 H (6-20) mg/dL Creatinine 0.83 (0.70-1.30) mg/dL Glucose 250 H (70-105) mg/dL Calcium 9.7 (8.6-10.3) mg/dL Calcium panel 06/19/18 06/19/18 Range/Units 03:00 03:00 Calcium 9.7 (8.6-10.3) mg/dL Phosphorus 3.6 (2.7-4.5) mg/dL Pituitary panel 06/18/18 06/19/18 Range/Units 13:55 03:00 Sodium 144 (136-145) mEq/L Potassium 4.1 3.9 (3.5-5.1) mEq/L Chloride 110 H (98-107) mEq/L Carbon Dioxide 26 (23-29) mEq/L BUN 34 H (6-20) mg/dL Creatinine 0.83 (0.70-1.30) mg/dL Glucose 250 H (70-105) mg/dL Calcium 9.7 (8.6-10.3) mg/dL Adrenal panel 06/18/18 06/19/18 Range/Units 13:55 03:00 Sodium 144 (136-145) mEq/L Potassium 4.1 3.9 (3.5-5.1) mEq/L Chloride 110 H (98-107) mEq/L Carbon Dioxide 26 (23-29) mEq/L BUN 34 H (6-20) mg/dL Creatinine 0.83 (0.70-1.30) mg/dL Glucose 250 H (70-105) mg/dL Calcium 9.7 (8.6-10.3) mg/dL - Attending Attestation patient seen and examined; i have reviewed all labs, imaging, and notes. i agree with the above assessment and plan and wish to add the following... drain output with continued decreased output; good UOP; afebrile; bowel sounds; pulm toilet PT/OT; OOBTC; activity, edge of bed with assistance UGI to assess anastamosis; awaiting return of bowel function continued supportive care per ICU
--- NOTE | 2018-06-19 09:08 | Infectious Disease Progress No ---
Date of Encounter: 06/19/18 Time of Encounter: 08:20 - Assessment and Plan (1) Severe sepsis Current Visit: Yes Status: Acute The patient had 3 sepsis criteria on admission. Likely secondary to bacteremia and intra-abdominal abscess and new intra- abdominal phlegmon. Concern for new nidus of infection given fever and tachycardia overnight. Improved, but has re-developed fever and tachycardia overnight. Blood cultures obtained 06/02/18 her +1 out of 2 sets for Escherichia coli. Repeat blood cultures drawn 06/04/18 are negative 2 sets. Repeat blood cultures drawn 06/06/18 are negative x 2 sets. Repeat blood cultures 2 sets drawn 06/11/18 are negative. Repeat sputum culture positive for E. coli. CT abdomen and pelvis shows phlegmon in the RUQ. Status post CT-guided drain placement 06/12/18 with cultures positive for E. coli. CT chest shows likely atelectasis. Repeat blood cultures x 2 sets now (1 from PICC and 1 from peripheral). Concern for aspiration given recent episodes of vomiting and cough. Get CXR. Continue Rocephin, Flagyl, and Fluconazole for now. The RUQ abscess is now growing yeast species with final ID and sensitivities pending. May need to consider switching to Micafungin given the new onset of fevers until susceptibilities are back, but will discuss with Dr. Hope. (2) Bacteremia due to Gram-negative bacteria Current Visit: Yes Status: Acute Causative organism: Escherichia coli per PCR. Source likely intra-abdominal abscess. Blood cultures obtained 06/02/18 are +1 out of 2 sets for Escherichia coli. Repeat blood cultures 06/04/18 are negative 2 sets. Repeat blood cultures 06/06/18 are negative x 2 sets. Repeat blood cultures 2 sets drawn 06/11/18 are negative. Repeat blood cultures x 2 sets now (1 from PICC and 1 from peripheral). Continue Rocephin 2 grams IV daily. (day 8 of treatment) Duration of treatment depends on the clinical picture. Monitor renal function and a productive toxicity and dose adjust antibiotics. (3) Intra-abdominal abscess Current Visit: No Status: Acute Likely secondary to perforated viscus. Causative organism E. coli and Yeast species. POD #17 Status post exploratory laparotomy, drainage of intra-abdominal abscess 06/02/[address] Maria. Operative note was reviewed. Gross purulence noted and dropped, but no succus, bile, or staining was seen in the abdominal cavity. CT of the abdomen and pelvis 06/11/18 showed findings consistent with phlegmon in the RUQ. Status post CT-guided drain placement 06/12/18. Purulent drainage noted in the SARBJIT drain at this time. Cultures are positive for E. coli, intermediate to Zosyn, and Yeast species, final ID and sensitivities are pending. Continue Rocephin 2 grams IV daily. (day 4 of treatment) Continue flagyl 500mg IV TID. (day 7 of anaerobic coverage) Continue fluconazole 200mg IV daily. Dose-adjust antibiotics based on creatinine clearance. Duration of treatment depends on the clinical picture. Wound care and activity restrictions per the surgery team. (4) Perforated abdominal viscus Current Visit: No Status: Acute Initially was thought to likely be secondary to NSAID use. Concern that this perforation may be secondary to the patch they placed previously was laying under pocket of pus which kept irritating it and cause perforation again. POD #13 status post exp lap with antrectomy, closure of duodenal stump, and Dagoberto en Y. No evidence of perforation noted on most recent imaging. Continue Rocephin/flagyl as above. Continue fluconazole 200 mg IV daily. Duration of treatment depends on the clinical picture. Monitor renal and liver function and dose-adjust antibiotics. (5) Acute on chronic renal failure Current Visit: Yes Status: Resolved Likely secondary to severe sepsis. Improved. Continue to trend. Dose adjust antibiotics based on creatinine clearance. Avoid nephrotoxins as able. Qualifiers: Acute renal failure type: unspecified Chronic kidney disease stage: unspecified stage Qualified Code(s): N17.9 - Acute kidney failure, unspecified ; N18.9 - Chronic kidney disease, unspecified (6) Pneumoperitoneum Current Visit: Yes Status: Acute Secondary to perforated viscus. Further management per the general surgery team. (7) Allergy to multiple antibiotics Current Visit: Yes Status: Acute (8) VRE (vancomycin-resistant Enterococci) Current Visit: No Status: Inactive Patient has a history of VRE in the urine. Continue contact precautions per hospital protocol. (9) Venous thromboembolism Current Visit: Yes Status: Acute DVT study showed a chronic venous thrombosis in the right lesser saphenous vein. Anticoagulation per the primary team. (10) Encephalopathy Current Visit: Yes Status: Acute Etiology unclear. Improved. Patient wakes up and follows some commands. MRI of the brain negative. EEG showed slowing consistent with toxic metabolic encephalopathy. Improved. Patient awake, alert, oriented x 3. Follows commands appropriately currently, but did have some restlessness and confusion overnight. (11) Nausea and vomiting Current Visit: No Status: Acute Secondary to misplaced NG tube. Resolved. Management per the primary and surgery teams. Qualifiers: Vomiting type: unspecified Vomiting Intractability: unspecified Qualified Code(s): R11.2 - Nausea with vomiting, unspecified - Subjective Interval history: Patient seen and examined. No acute events noted overnight. Awake, alert, oriened x 3. Febrile overnight. Follows commands. NG tube remains patent with gastric content drainage. Patient denies chest pain or shortness of breath. Reports a cough productive of thick sputum. Denies nausea or vomiting, shortness of breath. Reports mild abdominal pain. No oral thrush or skin lesions noted. Infect Dis PN-Objective Data - Labs CBC & Chem 7: 06/19/18 03:00 06/19/18 03:00 Labs: Laboratory Results - last 24 hr 06/18/18 06/18/18 06/18/18 03:29 07:19 10:46 WBC RBC Hgb Hct MCV MCH MCHC RDW Plt Count MPV Immature Gran % Seg Neutrophils % Lymphocytes % Monocytes % Eosinophils % Basophils % Neutrophils # Lymphocytes # Monocytes # Eosinophils # Basophils # Nucleated RBCs/100 WBC Platelet Estimate Polychromasia Hypochromasia Anisocytosis Sodium Potassium Chloride Carbon Dioxide BUN Creatinine Est GFR ( Amer) Est GFR (Non-Af Amer) BUN/Creatinine Ratio Glucose POC Glucose 174 H 186 H 181 H Calculated Osmolality Calcium Phosphorus Magnesium 06/18/18 06/18/18 06/18/18 13:55 16:02 19:20 WBC RBC Hgb Hct MCV MCH MCHC RDW Plt Count MPV Immature Gran % Seg Neutrophils % Lymphocytes % Monocytes % Eosinophils % Basophils % Neutrophils # Lymphocytes # Monocytes # Eosinophils # Basophils # Nucleated RBCs/100 WBC Platelet Estimate Polychromasia Hypochromasia Anisocytosis Sodium Potassium 4.1 Chloride Carbon Dioxide BUN Creatinine Est GFR ( Amer) Est GFR (Non-Af Amer) BUN/Creatinine Ratio Glucose POC Glucose 196 H 191 H Calculated Osmolality Calcium Phosphorus Magnesium 06/18/18 06/19/18 06/19/18 22:40 03:00 03:00 WBC 8.7 RBC 2.83 L Hgb 7.7 L Hct 25.6 L MCV 90.5 MCH 27.2 L MCHC 30.1 L RDW 16.0 H Plt Count 405 H MPV 9.6 Immature Gran % 8.0 H Seg Neutrophils % 64.0 Lymphocytes % 17.5 Monocytes % 7.7 Eosinophils % 2.2 Basophils % 0.6 Neutrophils # 5.6 Lymphocytes # 1.5 Monocytes # 0.7 Eosinophils # 0.2 Basophils # 0.1 Nucleated RBCs/100 WBC 1.3 H Platelet Estimate Slight increase H Polychromasia 2+ A Hypochromasia Present A Anisocytosis 1+ A Sodium 144 Potassium 3.9 Chloride 110 H Carbon Dioxide 26 BUN 34 H Creatinine 0.83 Est GFR ( Amer) > 60 Est GFR (Non-Af Amer) > 60 BUN/Creatinine Ratio 41 H Glucose 250 H POC Glucose 191 H Calculated Osmolality 314 H Calcium 9.7 Phosphorus Magnesium 06/19/18 03:00 WBC RBC Hgb Hct MCV MCH MCHC RDW Plt Count MPV Immature Gran % Seg Neutrophils % Lymphocytes % Monocytes % Eosinophils % Basophils % Neutrophils # Lymphocytes # Monocytes # Eosinophils # Basophils # Nucleated RBCs/100 WBC Platelet Estimate Polychromasia Hypochromasia Anisocytosis Sodium Potassium Chloride Carbon Dioxide BUN Creatinine Est GFR ( Amer) Est GFR (Non-Af Amer) BUN/Creatinine Ratio Glucose POC Glucose Calculated Osmolality Calcium Phosphorus 3.6 Magnesium 1.9 Cultures: Cultures 06/12/18 12:28 Anaerobic Culture - Final Aspirate No anaerobes were recovered. 06/12/18 12:28 Fungal Culture - Preliminary Aspirate Yeast Species 06/11/18 09:34 Blood Culture - Final Peripheral Venipuncture No growth. Final report. 06/11/18 09:30 Blood Culture - Final Peripheral Venipuncture No growth. Final report. 06/12/18 12:28 Gram Stain - Final Aspirate 06/12/18 12:28 Wound Culture - Final Abdomen Escherichia coli 06/11/18 15:00 Sputum Culture - Final Aspirate Escherichia coli 06/06/18 03:35 Blood Culture - Final Peripheral Venipuncture No growth. Final report. 06/06/18 01:42 Blood Culture - Final Peripheral Venipuncture No growth. Final report. 06/04/18 09:10 Blood Culture - Final Peripheral Venipuncture No growth. Final report. 06/04/18 09:12 Blood Culture - Final Peripheral Venipuncture No growth. Final report. 06/02/18 20:12 Anaerobic Culture - Final Peritoneal Fluid No anaerobes were recovered. 06/06/18 09:20 Urine Culture - Final Urine,[place] No growth. 06/07/18 03:48 Sputum Culture - Final Sputum 06/02/18 20:12 Body Fluid Culture - Final Peritoneal Fluid Escherichia coli Exam - Constitutional Vitals: Temp Pulse Resp BP Pulse Ox 99.9 F H 102 24 114/83 94 06/19/18 08:38 06/19/18 07:00 06/19/18 07:00 06/19/18 07:00 06/19/18 07:00 General appearance: cooperative, no acute distress, obese - Head Head exam: Present: atraumatic, normal inspection, normocephalic - Eye Eye exam: Present: EOMI, normal appearance, PERRL Pupils: Present: normal accommodation - ENT ENT exam: Present: mucous membranes dry - Neck Neck exam: Present: normal inspection - Respiratory Respiratory exam: Present: rhonchi (Scattered). Absent: rales, respiratory distress, wheezes - Cardiovascular Cardiovascular exam: Present: +S1, +S2, tachycardia. Absent: irregular rhythm - GI/Abdominal GI/Abdominal exam: Present: distended, hypoactive bowel sounds, soft, tenderness (Mild, RUQ, LUQ) Additional comments: Midline abdominal incision dressing with scant shadow drainage noted. SARBJIT drain noted to the left abdomen with scant serosanguinous drainage noted. SARBJIT drain #3 to the RUQ with purulent dark brown drainage. SARBJIT drain #2 to the RUQ with bilious contents. NG tube with gastric secretions noted in the canister. [place] catheter noted to be draining clear yellow urine. - Extremities Exam Extremities exam: Present: normal inspection. Absent: joint swelling, pedal edema, tenderness - Neurological Exam Neurological exam: Present: alert, oriented X3, no focal deficits - Psychiatric Psychiatric exam: Present: normal affect, normal mood - Skin Skin exam: Present: dry, intact, normal color, warm - Additional findings Additional findings: PICC line noted to the RUE with transparent dressing C/D/I. No erythema, warmth , drainage, or tenderness noted. - VTE Documentation of Mechanical Device: Intermittent pneumatic compression device Consult Discharge Plan - Plan Referrals: Zafar Hinton MD [Primary Care Provider] - - Attending Attestation I examined this patient and my medical decision-making was reviewed with the Resident Physician. I agree with the documented findings, disposition and treatment plan as described except to the extent set forth below.
[2018-06-19] MEDS ORDERED: Insulin DETEMIR 100 UNIT/ML X5UNITS SQ ONE (09:45)
[2018-06-19] MEDS ORDERED: *HR* Alteplase (Cathflo) 2 MG VIAL IVP ONE (10:42)
[2018-06-19] MEDS: Micafungin 100 MG in 0.9 % Sodium Chloride Mini Bag 100 ML IVPB SCH (10:56)
[2018-06-19] MEDS: *HR* FentaNYL (PF) 100 MCG/2 ML VIAL IVP PRN ×2 (11:27→19:15)
[2018-06-19] MEDS: Ondansetron 4 MG/2 ML VIAL IVP PRN (11:34)
[2018-06-19] MEDS: cefTRIAXone 2,000 MG in 0.9 % Sodium Chloride Mini Bag 100 ML IVPB SCH (14:40)
[2018-06-19] MEDS ORDERED: Clinimix E 5%-15% SOLUTION 2,000 ML, Parenteral Amino Acid 10% 200 ML with MVI, adult ... IVC SCH (17:00)
[2018-06-20] MEDS: Dexmedetomidine HCl 400 MCG/100 ML MLS IVC SCH (03:08)
[2018-06-20] MEDS: Insulin LISPRO 300 UNITS/3 ML VIAL SQ SCH ×5 (03:08→20:11)
[2018-06-20] MEDS: *HR* Metoprolol 5 MG/5 ML VIAL IVP SCH ×5 (03:08→19:56)
[2018-06-20 03:17] LABS: Eosinophils # 0.2 K/mcL (0.0-0.6); Hematocrit 27.2 % (37.5-50.1); Hemoglobin 8.2 g/dL (12.9-16.9); Mean Corpuscular HGB Conc 30.1 g/dL (31.6-35.5); Mean Corpuscular Hemoglobin 27.2 pg (28.0-33.3); Mean Corpuscular Volume 90.1 fL (83.0-100.0); Mean Platelet Volume 9.5 fL (9.4-12.4); Nucleated Red Blood Cells 1.8 /100 WBC (0); Platelet Count 358 K/mcL (140-400); Red Blood Count 3.02 M/mcL (4.19-5.50); Red Cell Distribution Width 16.3 % (11.5-14.5)
[2018-06-20 03:36] LABS: BUN/Creatinine Ratio 46 (6-26); Blood Urea Nitrogen 42 mg/dL (6-20); Calcium 9.9 mg/dL (8.6-10.3); Carbon Dioxide 25 mEq/L (23-29); Chloride 111 mEq/L (98-107); Glucose 200 mg/dL (70-105); Magnesium 2.1 mg/dL (1.6-2.6); Osmolality,Calculated 314 (280-300); Phosphorous 4.2 mg/dL (2.7-4.5); Potassium 3.9 mEq/L (3.5-5.1); Sodium 144 mEq/L (136-145); eGFR For Non-African Americans > 60 (> 60)
[2018-06-20 03:42] LABS: Lymphocytes # 1.8 K/mcL (0.6-4.6); Neutrophils # 6.9 K/mcL (1.6-8.9)
[2018-06-20 03:43] LABS: Platelet Estimate Normal (Normal)
[2018-06-20] MEDS: *HR* FentaNYL (PF) 100 MCG/2 ML VIAL IVP PRN ×3 (04:29→18:19)
[2018-06-20] MEDS: Pantoprazole 40 MG VIAL IVP SCH ×2 (05:02→18:20)
[2018-06-20] MEDS: *HR* Heparin 5,000 UNIT/ML VIAL SQ SCH ×2 (05:02→14:10)
[2018-06-20] MEDS: *HR* Promethazine 25 MG/ML VIAL IVP PRN ×2 (05:56→19:32)
--- NOTE | 2018-06-20 07:23 | Pulmonology Progress Note ---
<Kota Brown W - Last Filed: 06/20/18 08:11> Date of Encounter: 06/20/18 Assessment and Plan (1) Acute perforated duodenal ulcer with hemorrhage Current Visit: No Status: Acute (2) Nausea and vomiting Current Visit: No Status: Acute Qualifiers: Vomiting type: unspecified Vomiting Intractability: unspecified Qualified Code(s): R11.2 - Nausea with vomiting, unspecified (3) Sepsis Current Visit: Yes Status: Acute Qualifiers: Sepsis type: sepsis due to unspecified organism Qualified Code(s): A41.9 - Sepsis, unspecified organism (4) Intra-abdominal abscess Current Visit: No Status: Acute (5) Encephalopathy Current Visit: Yes Status: Acute (6) Acute respiratory failure Current Visit: Yes Status: Acute Qualifiers: Respiratory failure complication: hypoxia and hypercapnia Qualified Code(s) : J96.01 - Acute respiratory failure with hypoxia; J96.02 - Acute respiratory failure with hypercapnia (7) Pneumonia due to E. coli Current Visit: Yes Status: Acute Qualifiers: Laterality: bilateral Lung location: lower lobe of lung Qualified Code(s) : J15.5 - Pneumonia due to Escherichia coli Objective PUL Vital signs: Last Vital Signs Temp 97.3 F L 06/20/18 03:07 Pulse 103 06/20/18 06:00 Resp 18 06/20/18 06:00 BP 125/91 06/20/18 06:00 Pulse Ox 95 06/20/18 06:00 Results - Laboratory Findings CBC and BMP: 06/20/18 03:00 06/20/18 03:00 ABG ABG pH 7.37 pH Units (7.32-7.45) 06/16/18 04:34 ABG pCO2 45 mmHg (35-45) 06/16/18 04:34 ABG pO2 98 mmHg (85-104) 06/16/18 04:34 ABG O2 Saturation 97 % (95-98) 06/16/18 04:34 PT/INR, D-dimer PT 13.4 Seconds (9.4-12.1) H 06/17/18 04:39 Abnormal lab findings: Abnormal lab results RBC 3.02 M/mcL (4.19-5.50) L 06/20/18 03:00 Hgb 8.2 g/dL (12.9-16.9) L 06/20/18 03:00 Hct 27.2 % (37.5-50.1) L 06/20/18 03:00 MCH 27.2 pg (28.0-33.3) L 06/20/18 03:00 MCHC 30.1 g/dL (31.6-35.5) L 06/20/18 03:00 RDW 16.3 % (11.5-14.5) H 06/20/18 03:00 Immature Gran % 8.0 % (0-4) H 06/19/18 03:00 Metamyelocytes % 2.0 % (0) H 06/18/18 03:30 Nucleated RBCs/100 WBC 1.8 /100 WBC (0) H 06/20/18 03:00 Toxic Granulation Present (Not Present) A 06/08/18 04:35 Large Platelets Present (Not Present) A 06/07/18 03:30 Polychromasia 2+ (Not Present) A 06/19/18 03:00 Hypochromasia Present (Not Present) A 06/19/18 03:00 Anisocytosis 1+ (Not Present) A 06/19/18 03:00 PT 13.4 Seconds (9.4-12.1) H 06/17/18 04:39 ABG Total CO2 28 mEq/L (20-26) H 06/16/18 04:34 Chloride 111 mEq/L (98-107) H 06/20/18 03:00 BUN 42 mg/dL (6-20) H 06/20/18 03:00 BUN/Creatinine Ratio 46 (6-26) H 06/20/18 03:00 Glucose 200 mg/dL (70-105) H 06/20/18 03:00 POC Glucose 215 mg/dL (70-99) H 06/19/18 22:52 Calculated Osmolality 314 (280-300) H 06/20/18 03:00 Direct Bilirubin 0.3 mg/dL (0.0-0.2) H 06/12/18 03:20 Serum Total Protein 5.6 g/dL (6.4-8.9) L 06/12/18 03:20 Albumin 2.7 g/dL (3.5-5.7) L 06/12/18 03:20 Albumin/Globulin Ratio 0.9 (1.1-2.2) L 06/12/18 03:20 Triglycerides 313 mg/dL (< 150) H 06/18/18 03:30 Gastrin 117 pg/mL (0-100) H 06/03/18 21:23 Urine Clarity Cloudy (Clear) A 06/02/18 09:18 Urine Protein 100 mg/dL (Neg-Trace) H 06/02/18 09:18 Urine Blood Large (Negative) H 06/02/18 09:18 Ur Leukocyte Esterase Moderate (Negative) H 06/02/18 09:18 Urine Microscopic RBC TNTC per hpf (0-3) H 06/02/18 09:18 Urine Microscopic WBC 15-30 per hpf (0-3) H 06/02/18 09:18 Ur Squamous Epith Cells Many per lpf (None-Few) H 06/02/18 09:18 Ur Culture Indicated? NO. (NO) A 06/02/18 09: Enterobacteriac sp PCR DETECTED (Not Detect) A 06/02/18 09:18 E. coli (PCR) DETECTED (Not Detect) A 06/02/18 09:18 - Microbiology Findings Microbiology Findings: Microbiology, Last 48 Hours 06/12/18 12:28 Fungal Culture - Preliminary Aspirate Yeast Species 06/19/18 09:56 Blood Culture - Preliminary Peripheral Central Cath, Picc Culture is incubating and being continuously monitored for growth. Final report to follow. 06/19/18 09:51 Blood Culture - Preliminary Peripheral Venipuncture Culture is incubating and being continuously monitored for growth. Final report to follow. 06/12/18 12:28 Anaerobic Culture - Final Aspirate No anaerobes were recovered. - Clinical Findings Intake & Output: Intake & Output 06/19/18 06/20/18 06/20/18 23:59 07:59 15:59 Intake Total 300 / 300 205 / 205 Output Total 509 / 509 310 / 310 Balance -209 / -209 -105 / -105 Weight 103 kg Consult Discharge Plan - Plan Referrals: Zafar Hinton MD [Primary Care Provider] - - Attending Attestation I examined this patient and my medical decision-making was reviewed with the Resident Physician. I agree with the documented findings, disposition and treatment plan as described except to the extent set forth below. We independently had [id number] contact with the patient Patient seen and examined at bedside Labs, radiology, chart personally reviewed. Management was reviewed during multidisciplinary critical care rounds. CORE BLOWER: Improving delirium cont focus on mosque of sleep-wake cycle. avoid sensory deprivation, and avoid CORE BLOWER depressant medications as able. Pulm: Acceptable oxygenation on nasal cannula wean as tolerated continue positive airway pressure with sleep Cards: Tachycardia improved with augmentation of beta kevin dosing GI: Status post ruptured viscus general surgery managing; drains with less output which is encouraging unfortunately the small bowel series showed that there was not significant contrast past anastomotic junction. Continue ppi Nutrition: Continue TPN per dietary recommendations Renal: UOP Monitored, Cont to Trend sCr and monitor Electrolytes. ID: Continue treatment for Escherichia coli and intra-abdominal fungal infection there is no evidence of a fungal element in the SARBJIT drain output he was transitioned from fluconazole to micafungin appreciate ID managing antimicrobial therapy Heme/Onc: DVT prophylaxis given Endo: Glucose Monitored Integ/MSK: Continue PT/OT consult out of bed to chair and Skin Care per routine ICU Nursing Protocol to prevent ulcers. Lines: All lines examined without evidence of infection : Dispo: Stable for transfer to stepdown unit for ongoing care CODE: Full <Nathaniel Kumar - Last Filed: 06/20/18 12:30> Date of Encounter: 06/20/18 Time of Encounter: 07:15 Assessment and Plan (1) Sepsis Current Visit: No Status: Acute Most likely 2/2 intraabdominal abscess with purulant fluid collections. 1/2 initial blood cultures pos E coli 06/02/18. Initial body fluid culture pos E coli 06/02/18. Sputum culture pos for Ecoli 06/11/18. IR drained abscess culture pos for E coli and yeast 06/12/18. Repeat blood and line cultures ngtd. On 2g ceftriaxone, metronidazole managed by ID currently. Fluconazole switched to micafungin yst. Extubated 06/15/18. Shock resolved and BP stable. Tachycardic still but better since metoprolol increased to q4h. WBC 9.9. low grade fever overnight. Drains still in place with continued output. Having fluctuating periods of encephalopathy and anxiety still, improving, will continue to work on sleep/wake normalization. Continue PT and mobilization. Gen surg waiting for gut motility. Will repeat upper GI follow through next week. Qualifiers: Sepsis type: Escherichia coli Qualified Code(s): A41.51 - Sepsis due to Escherichia coli [E. coli] (2) Pneumonia due to E. coli Current Visit: Yes Status: Acute Resolved. Sputum pos for E coli 06/11/18, sensitive to ceftriaxone which he is on. Small bilateral lower lung consolidation on chest CT 06/11/18. No signs of infection today, afebrile, wbc 9.9, and breathing is much improved since extubation. Qualifiers: Laterality: bilateral Lung location: lower lobe of lung Qualified Code(s) : J15.5 - Pneumonia due to Escherichia coli (3) Bacteremia due to Gram-negative bacteria Current Visit: Yes Status: Acute Resolved. Initial blood cultures 06/02/18 grew E coli. No pos blood cultures since. (4) Acute on chronic renal failure Current Visit: Yes Status: Resolved Resolved. Cr 0.92 today. Will trend Cr, monitor and replace elctrolytes as needed. Qualifiers: Acute renal failure type: unspecified Chronic kidney disease stage: unspecified stage Qualified Code(s): N17.9 - Acute kidney failure, unspecified ; N18.9 - Chronic kidney disease, unspecified (5) Perforated viscus Current Visit: Yes Status: Acute S/p exlap, washout, [id number]. Surg following. Repeat wound cultures grew E coli and yeast, intermediate to zosyn. Continue current ceftriaxone and micafungin. (6) Lactic acidosis Current Visit: Yes Status: Resolved Resolved. Lactic high of 5.1, latest 1.1 (7) Anemia Current Visit: Yes Status: Resolved Hgb been stable recently. 8.2 today. Qualifiers: Anemia type: other cause Other causes of anemia: other cause, not classified Qualified Code(s): D64.89 - Other specified anemias (8) Diabetes Current Visit: Yes Status: Chronic Hx of DM. On TPN, glucose trending high 100's/low 200's since infusion stopped. Will increase basal from 20 BID to 25 BID and continue high SSI for now. Qualifiers: Diabetes mellitus type: type 2 Diabetes mellitus mcc insulin use: without mcc use Diabetes mellitus complication status: with hyperglycemia Qualified Code(s): E11.65 - Type 2 diabetes mellitus with hyperglycemia (9) Pressure injury of skin of head Current Visit: Yes Status: Acute ~6x3cm pressure wound on back of head. Likely 2/2 immobility during 14 days intubated. Open, minimal drainage, non tender, no erythema, heat, signs of infection currently. Wound care consulted for evaluation. Qualifiers: Pressure injury stage: unspecified pressure injury stage Qualified Code(s) : L89.819 - Pressure ulcer of head, unspecified stage (10) VRE (vancomycin-resistant Enterococci) Current Visit: No Status: Inactive Hx of VRE in urine. Treated with outpatient abx with ID. On contact precautions. (11) Obesity (BMI 30.0-34.9) Current Visit: Yes Status: Chronic BMI 34.6. Will recommend lifestyle modifications upon dc. (12) DVT prophylaxis Current Visit: Yes Status: Acute Chemical prophylaxis Subjective Principal diagnosis: Septic shock Interval history: Doing better overnight, no reports of agitation/confusion last night. Tmax last 24 hours 101.1. No new complaints today, breathing better, some abdominal pain, some nausea still but better, no emesis events, ng and drains still in place. Upper GI yesterday did not show any contrast past GJ anastomosis. Objective PUL Vital signs: Last Vital Signs Temp 97.3 F L 06/20/18 03:07 Pulse 103 06/20/18 06:00 Resp 18 06/20/18 06:00 BP 125/91 06/20/18 06:00 Pulse Ox 95 06/20/18 06:00 General appearance: no acute distress, alert Eyes: nonicteric ENT: oropharynx dry Effort: normal Auscultation: bilateral: diminished breath sounds Cardiovascular: other (tachycardic) Gastrointestinal: absent bowel sounds Integumentary: other (R great toe erythematous, tender to palpation. ~6x3cm open lesion on back of head, no active drainage, erythema, or tenderness.) Extremities: no cyanosis, no edema non-focal exam Results - Laboratory Findings CBC and BMP: 06/20/18 03:00 06/20/18 03:00 ABG ABG pH 7.37 pH Units (7.32-7.45) 06/16/18 04:34 ABG pCO2 45 mmHg (35-45) 06/16/18 04:34 ABG pO2 98 mmHg (85-104) 06/16/18 04:34 ABG O2 Saturation 97 % (95-98) 06/16/18 04:34 PT/INR, D-dimer PT 13.4 Seconds (9.4-12.1) H 06/17/18 04:39 Abnormal lab findings: Abnormal lab results RBC 3.02 M/mcL (4.19-5.50) L 06/20/18 03:00 Hgb 8.2 g/dL (12.9-16.9) L 06/20/18 03:00 Hct 27.2 % (37.5-50.1) L 06/20/18 03:00 MCH 27.2 pg (28.0-33.3) L 06/20/18 03:00 MCHC 30.1 g/dL (31.6-35.5) L 06/20/18 03:00 RDW 16.3 % (11.5-14.5) H 06/20/18 03:00 Immature Gran % 8.0 % (0-4) H 06/19/18 03:00 Metamyelocytes % 2.0 % (0) H 06/18/18 03:30 Nucleated RBCs/100 WBC 1.8 /100 WBC (0) H 06/20/18 03:00 Toxic Granulation Present (Not Present) A 06/08/18 04:35 Large Platelets Present (Not Present) A 06/07/18 03:30 Polychromasia 2+ (Not Present) A 06/19/18 03:00 Hypochromasia Present (Not Present) A 06/19/18 03:00 Anisocytosis 1+ (Not Present) A 06/19/18 03:00 PT 13.4 Seconds (9.4-12.1) H 06/17/18 04:39 ABG Total CO2 28 mEq/L (20-26) H 06/16/18 04:34 Chloride 111 mEq/L (98-107) H 06/20/18 03:00 BUN 42 mg/dL (6-20) H 06/20/18 03:00 BUN/Creatinine Ratio 46 (6-26) H 06/20/18 03:00 Glucose 200 mg/dL (70-105) H 06/20/18 03:00 POC Glucose 215 mg/dL (70-99) H 06/19/18 22:52 Calculated Osmolality 314 (280-300) H 06/20/18 03:00 Direct Bilirubin 0.3 mg/dL (0.0-0.2) H 06/12/18 03:20 Serum Total Protein 5.6 g/dL (6.4-8.9) L 06/12/18 03:20 Albumin 2.7 g/dL (3.5-5.7) L 06/12/18 03:20 Albumin/Globulin Ratio 0.9 (1.1-2.2) L 06/12/18 03:20 Triglycerides 313 mg/dL (< 150) H 06/18/18 03:30 Gastrin 117 pg/mL (0-100) H 06/03/18 21:23 Urine Clarity Cloudy (Clear) A 06/02/18 09:18 Urine Protein 100 mg/dL (Neg-Trace) H 06/02/18 09:18 Urine Blood Large (Negative) H 06/02/18 09:18 Ur Leukocyte Esterase Moderate (Negative) H 06/02/18 09:18 Urine Microscopic RBC TNTC per hpf (0-3) H 06/02/18 09:18 Urine Microscopic WBC 15-30 per hpf (0-3) H 06/02/18 09:18 Ur Squamous Epith Cells Many per lpf (None-Few) H 06/02/18 09:18 Ur Culture Indicated? NO. (NO) A 06/02/18 09:18 Enterobacteriac sp PCR DETECTED (Not Detect) A 06/02/18 09:18 E. coli (PCR) DETECTED (Not Detect) A 06/02/18 09:18 - Microbiology Findings Microbiology Findings: Microbiology, Last 48 Hours 06/12/18 12:28 Fungal Culture - Preliminary Aspirate Yeast Species 06/19/18 09:56 Blood Culture - Preliminary Peripheral Central Cath, Picc Culture is incubating and being continuously monitored for growth. Final report to follow. 06/19/18 09:51 Blood Culture - Preliminary Peripheral Venipuncture Culture is incubating and being continuously monitored for growth. Final report to follow. 06/12/18 12:28 Anaerobic Culture - Final Aspirate No anaerobes were recovered. - Clinical Findings Intake & Output: Intake & Output 06/19/18 06/19/18 06/20/18 15:59 23:59 07:59 Intake Total 500 / 500 300 / 300 205 / 205 Output Total 2533 / 2533 509 / 509 310 / 310 Balance -2033 / -2033 -209 / -209 -105 / -105 Weight 103 kg - VTE Documentation of Mechanical Device: Intermittent pneumatic compression device
[2018-06-20] MEDS: Micafungin 100 MG in 0.9 % Sodium Chloride Mini Bag 100 ML IVPB SCH (08:16)
[2018-06-20] MEDS: Furosemide 40 MG/4 ML VIAL IVP SCH (08:17)
[2018-06-20] MEDS: Nystatin SUSP 5 ML UD.LIQ PO SCH ×4 (08:17→19:56)
[2018-06-20] MEDS: MetroNIDAZOLE 500 MG/100 ML 500 MG/100 ML BAG IVPB SCH ×2 (08:17→16:11)
[2018-06-20] MEDS: Insulin DETEMIR 100 UNIT/ML X5UNITS SQ SCH ×2 (08:21→19:59)
--- NOTE | 2018-06-20 09:12 | Infectious Disease Progress No ---
Date of Encounter: 06/20/18 Time of Encounter: 09:10 - Assessment and Plan (1) Severe sepsis Current Visit: Yes Status: Acute The patient had 3 sepsis criteria on admission. Likely secondary to bacteremia and intra-abdominal abscess and new intra- abdominal phlegmon. Concern for new nidus of infection given fever and tachycardia overnight. Improved, but has re-developed fever and tachycardia overnight. Blood cultures obtained 06/02/18 her +1 out of 2 sets for Escherichia coli. Repeat blood cultures drawn 06/04/18 are negative 2 sets. Repeat blood cultures drawn 06/06/18 are negative x 2 sets. Repeat blood cultures 2 sets drawn 06/11/18 are negative. Repeat sputum culture positive for E. coli. CT abdomen and pelvis shows phlegmon in the RUQ. Status post CT-guided drain placement 06/12/18 with cultures positive for E. coli. CT chest shows RML atelectasis. Repeat blood cultures x 2 sets (1 from PICC and 1 from peripheral) are pending. Continue Rocephin, Flagyl, and Micafungin. (2) Bacteremia due to Gram-negative bacteria Current Visit: Yes Status: Acute Causative organism: Escherichia coli per PCR. Source likely intra-abdominal abscess. Blood cultures obtained 06/02/18 are +1 out of 2 sets for Escherichia coli. Repeat blood cultures 06/04/18 are negative 2 sets. Repeat blood cultures 06/06/18 are negative x 2 sets. Repeat blood cultures 2 sets drawn 06/11/18 are negative. Repeat blood cultures x 2 sets now (1 from PICC and 1 from peripheral). Continue Rocephin 2 grams IV daily. (day 9 of treatment) Duration of treatment depends on the clinical picture. Monitor renal function and a productive toxicity and dose adjust antibiotics. (3) Intra-abdominal abscess Current Visit: No Status: Acute Likely secondary to perforated viscus. Causative organism E. coli and Yeast species. POD #17 Status post exploratory laparotomy, drainage of intra-abdominal abscess 06/02/[address] Maria. Operative note was reviewed. Gross purulence noted and dropped, but no succus, bile, or staining was seen in the abdominal cavity. CT of the abdomen and pelvis 06/11/18 showed findings consistent with phlegmon in the RUQ. Status post CT-guided drain placement 06/12/18. Purulent drainage noted in the SARBJIT drain at this time. Cultures are positive for E. coli, intermediate to Zosyn, and Yeast species, final ID and sensitivities are pending. Continue Rocephin 2 grams IV daily. (day 5 of treatment) Continue flagyl 500mg IV TID. (day 8 of anaerobic coverage) Continue micafungin 100mg IV daily. Dose-adjust antibiotics based on creatinine clearance. Duration of treatment depends on the clinical picture. Wound care and activity restrictions per the surgery team. (4) Perforated abdominal viscus Current Visit: No Status: Acute Initially was thought to likely be secondary to NSAID use. Concern that this perforation may be secondary to the patch they placed previously was laying under pocket of pus which kept irritating it and cause perforation again. POD #14 status post exp lap with antrectomy, closure of duodenal stump, and Dagoberto en Y. No evidence of perforation noted on most recent imaging. Continue Rocephin/flagyl as above. Continue fluconazole 200 mg IV daily. Duration of treatment depends on the clinical picture. Monitor renal and liver function and dose-adjust antibiotics. (5) Acute on chronic renal failure Current Visit: Yes Status: Resolved Likely secondary to severe sepsis. Improved. Continue to trend. Dose adjust antibiotics based on creatinine clearance. Avoid nephrotoxins as able. Qualifiers: Acute renal failure type: unspecified Chronic kidney disease stage: unspecified stage Qualified Code(s): N17.9 - Acute kidney failure, unspecified ; N18.9 - Chronic kidney disease, unspecified (6) Pneumoperitoneum Current Visit: Yes Status: Acute Secondary to perforated viscus. Further management per the general surgery team. (7) Allergy to multiple antibiotics Current Visit: Yes Status: Acute (8) VRE (vancomycin-resistant Enterococci) Current Visit: No Status: Inactive Patient has a history of VRE in the urine. Continue contact precautions per hospital protocol. (9) Venous thromboembolism Current Visit: Yes Status: Acute DVT study showed a chronic venous thrombosis in the right lesser saphenous vein. Anticoagulation per the primary team. (10) Encephalopathy Current Visit: Yes Status: Acute Etiology unclear. Improved. Patient wakes up and follows some commands. MRI of the brain negative. EEG showed slowing consistent with toxic metabolic encephalopathy. Improved. Patient awake, alert, oriented x 3. Follows commands appropriately currently, but did have some restlessness and confusion overnight. (11) Nausea and vomiting Current Visit: No Status: Acute Secondary to misplaced NG tube. Resolved. Management per the primary and surgery teams. Qualifiers: Vomiting type: unspecified Vomiting Intractability: unspecified Qualified Code(s): R11.2 - Nausea with vomiting, unspecified (12) Ileus Current Visit: Yes Status: Acute Upper GI series shows prolonged post-op ileus. Management per the surgery team. - Subjective Interval history: Patient seen and examined. No acute events noted overnight. Awake, alert, oriened x 3. Febrile overnight Tmax 100.3. Follows commands. NG tube remains patent with gastric content drainage. Patient denies chest pain or shortness of breath. Reports a cough productive of thick sputum. Denies nausea or vomiting, shortness of breath. Reports mild abdominal pain. No oral thrush or skin lesions noted. Infect Dis PN-Objective Data - Labs CBC & Chem 7: 06/20/18 03:00 06/20/18 03:00 Labs: Laboratory Results - last 24 hr 06/19/18 06/19/18 06/19/18 02:58 08:27 11:27 WBC RBC Hgb Hct MCV MCH MCHC RDW Plt Count MPV Seg Neutrophils % Band Neutrophils % Lymphocytes % Monocytes % Eosinophils % Neutrophils # Lymphocytes # Monocytes # Eosinophils # Nucleated RBCs/100 WBC Platelet Estimate Sodium Potassium Chloride Carbon Dioxide BUN Creatinine Est GFR ( Amer) Est GFR (Non-Af Amer) BUN/Creatinine Ratio Glucose POC Glucose 184 H 198 H 170 H Calculated Osmolality Calcium Phosphorus Magnesium 06/19/18 06/19/18 06/19/18 16:13 19:24 22:52 WBC RBC Hgb Hct MCV MCH MCHC RDW Plt Count MPV Seg Neutrophils % Band Neutrophils % Lymphocytes % Monocytes % Eosinophils % Neutrophils # Lymphocytes # Monocytes # Eosinophils # Nucleated RBCs/100 WBC Platelet Estimate Sodium Potassium Chloride Carbon Dioxide BUN Creatinine Est GFR ( Amer) Est GFR (Non-Af Amer) BUN/Creatinine Ratio Glucose POC Glucose 191 H 210 H 215 H Calculated Osmolality Calcium Phosphorus Magnesium 06/20/18 06/20/18 03:00 03:00 WBC 9.9 RBC 3.02 L Hgb 8.2 L Hct 27.2 L MCV 90.1 MCH 27.2 L MCHC 30.1 L RDW 16.3 H Plt Count 358 MPV 9.5 Seg Neutrophils % 68.0 Band Neutrophils % 2.0 Lymphocytes % 18.0 Monocytes % 10.0 Eosinophils % 2.0 Neutrophils # 6.9 Lymphocytes # 1.8 Monocytes # 1.0 Eosinophils # 0.2 Nucleated RBCs/100 WBC 1.8 H Platelet Estimate Normal Sodium 144 Potassium 3.9 Chloride 111 H Carbon Dioxide 25 BUN 42 H Creatinine 0.92 Est GFR ( Amer) > 60 Est GFR (Non-Af Amer) > 60 BUN/Creatinine Ratio 46 H Glucose 200 H POC Glucose Calculated Osmolality 314 H Calcium 9.9 Phosphorus 4.2 Magnesium 2.1 Cultures: Cultures 06/12/18 12:28 Fungal Culture - Preliminary Aspirate Yeast Species 06/19/18 09:56 Blood Culture - Preliminary Peripheral Central Cath, Picc Culture is incubating and being continuously monitored for growth. Final report to follow. 06/19/18 09:51 Blood Culture - Preliminary Peripheral Venipuncture Culture is incubating and being continuously monitored for growth. Final report to follow. 06/12/18 12:28 Anaerobic Culture - Final Aspirate No anaerobes were recovered. 06/11/18 09:34 Blood Culture - Final Peripheral Venipuncture No growth. Final report. 06/11/18 09:30 Blood Culture - Final Peripheral Venipuncture No growth. Final report. 06/12/18 12:28 Gram Stain - Final Aspirate 06/12/18 12:28 Wound Culture - Final Abdomen Escherichia coli 06/11/18 15:00 Sputum Culture - Final Aspirate Escherichia coli 06/06/18 03:35 Blood Culture - Final Peripheral Venipuncture No growth. Final report. 06/06/18 01:42 Blood Culture - Final Peripheral Venipuncture No growth. Final report. 06/04/18 09:10 Blood Culture - Final Peripheral Venipuncture No growth. Final report. 06/04/18 09:12 Blood Culture - Final Peripheral Venipuncture No growth. Final report. 06/02/18 20:12 Anaerobic Culture - Final Peritoneal Fluid No anaerobes were recovered. 06/06/18 09:20 Urine Culture - Final Urine,[place] No growth. 06/07/18 03:48 Sputum Culture - Final Sputum 06/02/18 20:12 Body Fluid Culture - Final Peritoneal Fluid Escherichia coli - Impressions Impressions Chest X-Ray 06/19/18 09:15 IMPRESSION: 1. Hypoinflated lungs with right mid lung atelectasis. 2. Cardiomegaly without evidence of failure. D/ / 06/19/2018 15:38:01 Roger Peter MD / violetta Interpreting Provider: Roger Peter MD Upper GI Series 06/19/18 11:36 IMPRESSION: 1. No passage of oral contrast through the gastrojejunal anastomosis. This could be due to ongoing ileus. No extravasated contrast is seen, but the exam is incomplete. D/ / Jose Lundberg MD / Jose Lundberg MD Interpreting Provider: Jose Lundberg MD Exam - Constitutional Vitals: Temp Pulse Resp BP Pulse Ox 99.9 F H 103 18 125/91 95 06/20/18 08:09 06/20/18 06:00 06/20/18 06:00 06/20/18 06:00 06/20/18 06:00 General appearance: cooperative, no acute distress, obese - Head Head exam: Present: atraumatic, normal inspection, normocephalic - Eye Eye exam: Present: EOMI, normal appearance, PERRL Pupils: Present: normal accommodation - ENT ENT exam: Present: mucous membranes moist - Neck Neck exam: Present: normal inspection - Respiratory Respiratory exam: Present: CTAB. Absent: rales, respiratory distress, rhonchi, wheezes - Cardiovascular Cardiovascular exam: Present: +S1, +S2, tachycardia. Absent: irregular rhythm - GI/Abdominal GI/Abdominal exam: Present: distended, hypoactive bowel sounds, soft, tenderness (RUQ, LUQ) Additional comments: Midline abdominal dressing C/D/I. SARBJIT drain noted to the left abdomen with scant serosanguinous drainage noted. SARBJIT drain notd to the RUQ (#3) with purulent dark brown drainage noted. SARBJIT drain noted to the RUQ (#2) with moderate amount of bilious contents noted. - Extremities Exam Extremities exam: Present: normal inspection. Absent: joint swelling, pedal edema, tenderness - Neurological Exam Neurological exam: Present: alert, oriented X3, no focal deficits - Psychiatric Psychiatric exam: Present: normal affect, normal mood - Skin Skin exam: Present: dry, intact, normal color, warm - Additional findings Additional findings: PICC line noted to the RUE with transparent dressing C/D/I. - VTE Documentation of Mechanical Device: Intermittent pneumatic compression device Consult Discharge Plan - Plan Referrals: Zafar Hinton MD [Primary Care Provider] -
--- NOTE | 2018-06-20 09:37 | General Surgery Progress Note ---
<Pedro Ocasio R - Last Filed: 06/20/18 09:34> Date of Encounter: 06/20/18 Time of Encounter: 08:05 - Assessment and Plan (1) Perforated abdominal viscus Current Visit: No Status: Acute POD #15 s/p exploratory laparotomy, antrectomy, gerri en Y reconstruction with Drs. Serrano and Mary on 06/05/2018 Episodes of confusion and anxiety less frequent Upper GI with gastrografin yesterday- contrast did not travel passed gastrojejunal anastomosis, patient did vomit after given contrast Plan: Awaiting return of bowel function. Will plan to repeat upper GI with follow through next week Continue PT/OT mobilization Activity as tolerated with assistance Continue Pulmonary toilet/ Incentive spirometry NG to LIWS prn antiemetic TPN Comfort care and pain management Wound care daily Monitor drain and NG output PPI/ dvt prophylaxis (2) Bacteremia due to Gram-negative bacteria Current Visit: Yes Status: Acute Initial blood cultures positive for ecoli 06/11 sputum culture- ecoli 06/11 blood cultures no growth 06/12 intra-abdominal abscess cultures- e-coli, intermediate sensitivity to Zosyn Per ID recommendations continue Ceftriaxone and flagyl continue fluconazole (3) Anemia Current Visit: Yes Status: Resolved Hemoglobin 8.2 this am Has been stable near this level since transfusion on 06/07 Would like to see patient with Hemoglobin of at least 8 and preferable 9 Qualifiers: Anemia type: other cause Other causes of anemia: other cause, not classified Qualified Code(s): D64.89 - Other specified anemias (4) Diabetes Current Visit: Yes Status: Chronic Continue poc measurements and insulin as needed for glycemic control Pt is on basal and high ssi Qualifiers: Diabetes mellitus type: type 2 Diabetes mellitus exterminator insulin use: without senior care use Diabetes mellitus complication status: with hyperglycemia Qualified Code(s): E11.65 - Type 2 diabetes mellitus with hyperglycemia (5) Acute on chronic renal failure Current Visit: Yes Status: Resolved Resolved, Monitor Ucr and output Replete electrolytes Avoid nephrotoxic agents Qualifiers: Acute renal failure type: unspecified Chronic kidney disease stage: unspecified stage Qualified Code(s): N17.9 - Acute kidney failure, unspecified ; N18.9 - Chronic kidney disease, unspecified Subjective Patient reports: feels better, flatus, no bowel movement, nausea, fever (24 hr Tmax 100.3) Narrative: Patient reporting episodes of nausea. Vomited after given gastrografin contrast yesterday. Objective Vital Signs - Last 8 Hours Temp Pulse Resp BP Pulse Ox 06/20/18 08:09 99.9 F H 06/20/18 06:00 103 18 125/91 95 06/20/18 05:03 101 16 120/83 95 06/20/18 04:00 97 20 110/83 95 06/20/18 03:07 97.3 F L 105 20 115/80 94 06/20/18 02:00 105 21 121/82 94 Intake and Output 06/19/18 06/20/18 06/20/18 23:59 07:59 15:59 Intake Total 300 / 300 205 / 205 Output Total 509 / 509 310 / 310 420 / 420 Balance -209 / -209 -105 / -105 -420 / -420 Intake: IV Fluids 300 / 300 205 / 205 PRECEDEX Premix 400 mcg In 100 200 / 200 105 / 105 ml @ 0.2 MCG/KG/HR 5.48 mls/hr IVC .[id number] [place] Rx#:[id number] Flagyl Premix 500 MG/100 ML 500 100 / 100 100 / 100 mg In 100 ml @ 100 mls/hr IVPB Q8HR [place] Rx#:[id number] Output: Catheter 400 / 400 200 / 200 325 / 325 Gastric Drainage 100 / 100 100 / 100 50 / 50 Wound Drainage / 9 10 / 10 45 / 45 Left Abdomen 0 / 0 0 / 0 0 / 0 Right Abdomen 5 / 5 5 / 5 25 / 25 Right Upper Abdomen 4 / 4 5 / 5 20 / 20 Other: Weight 103 kg Blood Glucose* 192 - General physical appearance no distress, no pain, chronically ill - Eyes PERRL, normal ocular movement - ENT normal mucosa, atraumatic, normocephalic, Other (NG in place) - Neck Neck exam: trachea midline, no venous distension - Respiratory normal expansion, normal respiratory effort - Cardiovascular Cardiovascular exam: Present: tachycardia - Abdomen Abdomen: Present: bowel sounds present (infrequent), soft, tender (improved post surgical tenderness), wound (SARBJIT drainage decreasing, remains bilious on right). Absent: distended, guarding - Incision Incision: Present: clean and dry, open (Interval packing for [place] present along incision). Absent: inflamed, erythema, purulent - Integumentary no rash - Neurologic CN 2-12 grossly intact - Musculoskeletal normal posture - Psychiatric oriented to time, oriented to person, oriented to place, speech is normal, memory intact - Labs 06/20/18 03:00 06/20/18 03:00 Diabetes panel 06/20/18 Range/Units 03:00 Sodium 144 (136-145) mEq/L Potassium 3.9 (3.5-5.1) mEq/L Chloride 111 H (98-107) mEq/L Carbon Dioxide 25 (23-29) mEq/L BUN 42 H (6-20) mg/dL Creatinine 0.92 (0.70-1.30) mg/dL Glucose 200 H (70-105) mg/dL Calcium 9.9 (8.6-10.3) mg/dL Calcium panel 06/20/18 Range/Units 03:00 Calcium 9.9 (8.6-10.3) mg/dL Phosphorus 4.2 (2.7-4.5) mg/dL Pituitary panel 06/20/18 Range/Units 03:00 Sodium 144 (136-145) mEq/L Potassium 3.9 (3.5-5.1) mEq/L Chloride 111 H (98-107) mEq/L Carbon Dioxide 25 (23-29) mEq/L BUN 42 H (6-20) mg/dL Creatinine 0.92 (0.70-1.30) mg/dL Glucose 200 H (70-105) mg/dL Calcium 9.9 (8.6-10.3) mg/dL Adrenal panel 06/20/18 Range/Units 03:00 Sodium 144 (136-145) mEq/L Potassium 3.9 (3.5-5.1) mEq/L Chloride 111 H (98-107) mEq/L Carbon Dioxide 25 (23-29) mEq/L BUN 42 H (6-20) mg/dL Creatinine 0.92 (0.70-1.30) mg/dL Glucose 200 H (70-105) mg/dL Calcium 9.9 (8.6-10.3) mg/dL - VTE Documentation of Mechanical Device: Intermittent pneumatic compression device Consult Discharge Plan - Plan Referrals: Zafar Hinton MD [Primary Care Provider] - <Benedict Serrano - Last Filed: 09/21/18 16:22> Date of Encounter: 06/20/18 - Assessment and Plan (1) Peritonitis Current Visit: Yes Status: Acute Objective Vital Signs - Last 8 Hours Temp Pulse Resp BP Pulse Ox 06/20/18 11:51 98.6 F 06/20/18 11:00 146 20 126/101 97 06/20/18 10:00 141 26 103/71 97 06/20/18 09:00 110 21 140/87 99 Intake and Output 06/20/18 06/20/18 06/20/18 07:59 15:59 23:59 Intake Total 205 / 205 45 / 45 Output Total 310 / 310 1350 / 1350 Balance -105 / -105 -1305 / -1305 Intake: IV Fluids / 45 / 45 PRECEDEX Premix 400 mcg In 100 105 / 105 45 / 45 ml @ 0.2 MCG/KG/HR 5.48 mls/hr IVC .[id number] [place] Rx#:[id number] Flagyl Premix 500 MG/100 ML 500 100 / 100 mg In 100 ml @ 100 mls/hr IVPB Q8HR [place] Rx#:[id number] Output: Catheter 200 / 200 1225 / 1225 Gastric Drainage 100 / 100 50 / 50 Wound Drainage 10 / 10 75 / 75 Left Abdomen 0 / 0 0 / 0 Right Abdomen 5 / 5 45 / 45 Right Upper Abdomen 5 / 5 30 / 30 Other: Blood Glucose* 237 - Labs 06/20/18 03:00 06/20/18 03:00 Diabetes panel 06/20/18 Range/Units 03:00 Sodium 144 (136-145) mEq/L Potassium 3.9 (3.5-5.1) mEq/L Chloride 111 H (98-107) mEq/L Carbon Dioxide 25 (23-29) mEq/L BUN 42 H (6-20) mg/dL Creatinine 0.92 (0.70-1.30) mg/dL Glucose 200 H (70-105) mg/dL Calcium 9.9 (8.6-10.3) mg/dL Calcium panel 06/20/18 Range/Units 03:00 Calcium 9.9 (8.6-10.3) mg/dL Phosphorus 4.2 (2.7-4.5) mg/dL Pituitary panel 06/20/18 Range/Units 03:00 Sodium 144 (136-145) mEq/L Potassium 3.9 (3.5-5.1) mEq/L Chloride 111 H (98-107) mEq/L Carbon Dioxide 25 (23-29) mEq/L BUN 42 H (6-20) mg/dL Creatinine 0.92 (0.70-1.30) mg/dL Glucose 200 H (70-105) mg/dL Calcium 9.9 (8.6-10.3) mg/dL Adrenal panel 06/20/18 Range/Units 03:00 Sodium 144 (136-145) mEq/L Potassium 3.9 (3.5-5.1) mEq/L Chloride 111 H (98-107) mEq/L Carbon Dioxide 25 (23-29) mEq/L BUN 42 H (6-20) mg/dL Creatinine 0.92 (0.70-1.30) mg/dL Glucose 200 H (70-105) mg/dL Calcium 9.9 (8.6-10.3) mg/dL - Attending Attestation I have personally seen and examined the patient. I have reviewed pertinent labs , imaging, progress notes, including this one. I agree with the above assessment and plan and wish to include the following... OOBTC, physial therapy, OT pulm toilet await return of bowel function possible CT scan tomorrow vs saturday
[2018-06-20] MEDS: cefTRIAXone 2,000 MG in 0.9 % Sodium Chloride Mini Bag 100 ML IVPB SCH (14:10)
[2018-06-20] MEDS: Acetaminophen IV 1,000 MG/100 ML INFUS..BTL IVPB PRN (14:15)
[2018-06-20] MEDS: Leptospermum Honey Gel 44 ML TUBE TP SCH (14:16)
[2018-06-20] MEDS: Ondansetron 4 MG/2 ML VIAL IVP PRN (16:12)
[2018-06-20] MEDS ORDERED: Clinimix E 5%-15% SOLUTION 2,000 ML, Parenteral Amino Acid 10% 200 ML with MVI, adult ... IVC SCH (17:00)
--- NOTE | 2018-06-20 17:34 | Electrocardiograph Report ---
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
[2018-06-20] MEDS: Artificial Tears SOLN 15 ML BOTTLE BOTH EYES SCH (19:49)
[2018-06-21] MEDS: *HR* Heparin 5,000 UNIT/ML VIAL SQ SCH ×2 (00:44→05:45)
[2018-06-21] MEDS: MetroNIDAZOLE 500 MG/100 ML 500 MG/100 ML BAG IVPB SCH ×2 (00:44→08:51)
[2018-06-21] MEDS: *HR* Metoprolol 5 MG/5 ML VIAL IVP SCH ×3 (00:45→08:52)
[2018-06-21] MEDS: *HR* FentaNYL (PF) 100 MCG/2 ML VIAL IVP PRN (00:45)
[2018-06-21] MEDS: Insulin LISPRO 300 UNITS/3 ML VIAL SQ SCH ×3 (00:45→08:53)
[2018-06-21] MEDS: Acetaminophen IV 1,000 MG/100 ML INFUS..BTL IVPB PRN (01:07)
[2018-06-21] MEDS: *HR* Promethazine 25 MG/ML VIAL IVP PRN ×2 (02:26→09:21)
[2018-06-21] MEDS: Pantoprazole 40 MG VIAL IVP SCH (05:45)
[2018-06-21 06:14] LABS: Hematocrit 30.5 % (37.5-50.1); Hemoglobin 9.2 g/dL (12.9-16.9); Mean Corpuscular HGB Conc 30.2 g/dL (31.6-35.5); Mean Corpuscular Hemoglobin 27.2 pg (28.0-33.3); Mean Corpuscular Volume 90.2 fL (83.0-100.0); Mean Platelet Volume 10.3 fL (9.4-12.4); Platelet Count 358 K/mcL (140-400); Red Blood Count 3.38 M/mcL (4.19-5.50); Red Cell Distribution Width 16.5 % (11.5-14.5)
[2018-06-21 06:26] LABS: Magnesium 1.9 mg/dL (1.6-2.6)
[2018-06-21 06:27] LABS: BUN/Creatinine Ratio 40 (6-26); Blood Urea Nitrogen 38 mg/dL (6-20); Calcium 9.9 mg/dL (8.6-10.3); Carbon Dioxide 22 mEq/L (23-29); Chloride 112 mEq/L (98-107); Glucose 243 mg/dL (70-105); Osmolality,Calculated 317 (280-300); Sodium 145 mEq/L (136-145); eGFR For Non-African Americans > 60 (> 60)
[2018-06-21 06:35] LABS: Eosinophils # 0.4 K/mcL (0.0-0.6); Lymphocytes # 1.5 K/mcL (0.6-4.6); Monocytes # 0.4 K/mcL (0.0-1.3); Neutrophils # 8.3 K/mcL (1.6-8.9)
[2018-06-21] MEDS: Micafungin 100 MG in 0.9 % Sodium Chloride Mini Bag 100 ML IVPB SCH (08:51)
[2018-06-21] MEDS: Furosemide 40 MG/4 ML VIAL IVP SCH (08:52)
[2018-06-21] MEDS: Insulin DETEMIR 100 UNIT/ML X5UNITS SQ SCH (08:52)
[2018-06-21] MEDS: Nystatin SUSP 5 ML UD.LIQ PO SCH (08:52)
--- NOTE | 2018-06-21 08:52 | Pulmonology Progress Note ---
<Kota Brown W - Last Filed: 06/21/18 10:21> Date of Encounter: 06/21/18 Assessment and Plan (1) Acute perforated duodenal ulcer with hemorrhage Current Visit: No Status: Acute (2) Nausea and vomiting Current Visit: No Status: Acute Qualifiers: Vomiting type: unspecified Vomiting Intractability: unspecified Qualified Code(s): R11.2 - Nausea with vomiting, unspecified (3) Sepsis Current Visit: Yes Status: Acute Qualifiers: Sepsis type: sepsis due to unspecified organism Qualified Code(s): A41.9 - Sepsis, unspecified organism (4) Intra-abdominal abscess Current Visit: No Status: Acute (5) Encephalopathy Current Visit: Yes Status: Acute (6) Acute respiratory failure Current Visit: Yes Status: Acute Qualifiers: Respiratory failure complication: hypoxia and hypercapnia Qualified Code(s) : J96.01 - Acute respiratory failure with hypoxia; J96.02 - Acute respiratory failure with hypercapnia (7) Pneumonia due to E. coli Current Visit: Yes Status: Acute Qualifiers: Laterality: bilateral Lung location: lower lobe of lung Qualified Code(s) : J15.5 - Pneumonia due to Escherichia coli Objective PUL Vital signs: Last Vital Signs Temp 99.5 F 06/21/18 07:40 Pulse 107 06/21/18 06:00 Resp 18 06/21/18 06:00 BP 121/84 06/21/18 06:00 Pulse Ox 95 06/21/18 06:00 Results - Laboratory Findings CBC and BMP: 06/21/18 05:35 06/21/18 05:35 ABG ABG pH 7.37 pH Units (7.32-7.45) 06/16/18 04:34 ABG pCO2 45 mmHg (35-45) 06/16/18 04:34 ABG pO2 98 mmHg (85-104) 06/16/18 04:34 ABG O2 Saturation 97 % (95-98) 06/16/18 04:34 PT/INR, D-dimer PT 13.4 Seconds (9.4-12.1) H 06/17/18 04:39 Abnormal lab findings: Abnormal lab results RBC 3.38 M/mcL (4.19-5.50) L 06/21/18 05:35 Hgb 9.2 g/dL (12.9-16.9) L 06/21/18 05:35 Hct 30.5 % (37.5-50.1) L 06/21/18 05:35 MCH 27.2 pg (28.0-33.3) L 06/21/18 05:35 MCHC 30.2 g/dL (31.6-35.5) L 06/21/18 05:35 RDW 16.5 % (11.5-14.5) H 06/21/18 05:35 Immature Gran % 8.0 % (0-4) H 06/19/18 03:00 Metamyelocytes % 2.0 % (0) H 06/18/18 03:30 Myelocytes % 2.0 % (0) H 06/21/18 05:35 Nucleated RBCs/100 WBC 2.0 /100 WBC (0) H 06/21/18 05:35 Toxic Granulation Present (Not Present) A 06/08/18 04:35 Large Platelets Present (Not Present) A 06/07/18 03:30 Polychromasia 2+ (Not Present) A 06/19/18 03:00 Hypochromasia Present (Not Present) A 06/19/18 03:00 Anisocytosis 1+ (Not Present) A 06/19/18 03:00 PT 13.4 Seconds (9.4-12.1) H 06/17/18 04:39 ABG Total CO2 28 mEq/L (20-26) H 06/16/18 04:34 Chloride 112 mEq/L (98-107) H 06/21/18 05:35 Carbon Dioxide 22 mEq/L (23-29) L 06/21/18 05:35 BUN 38 mg/dL (6-20) H 06/21/18 05:35 BUN/Creatinine Ratio 40 (6-26) H 06/21/18 05:35 Glucose 243 mg/dL (70-105) H 06/21/18 05:35 POC Glucose 206 mg/dL (70-99) H 06/20/18 23:35 Calculated Osmolality 317 (280-300) H 06/21/18 05:35 Direct Bilirubin 0.3 mg/dL (0.0-0.2) H 06/12/18 03:20 Serum Total Protein 5.6 g/dL (6.4-8.9) L 06/12/18 03:20 Albumin 2.7 g/dL (3.5-5.7) L 06/12/18 03:20 Albumin/Globulin Ratio 0.9 (1.1-2.2) L 06/12/18 03:20 Triglycerides 313 mg/dL (< 150) H 06/18/18 03:30 Gastrin 117 pg/mL (0-100) H 06/03/18 21:23 Urine Clarity Cloudy (Clear) A 06/02/18 09:18 Urine Protein 100 mg/dL (Neg-Trace) H 06/02/18 09:18 Urine Blood Large (Negative) H 06/02/18 09:18 Ur Leukocyte Esterase Moderate (Negative) H 06/02/18 09:18 Urine Microscopic RBC TNTC per hpf (0-3) H 06/02/18 09:18 Urine Microscopic WBC 15-30 per hpf (0-3) H 06/02/18 09:18 Ur Squamous Epith Cells Many per lpf (None-Few) H 06/02/18 09:18 Ur Culture Indicated? NO. (NO) A 06/02/18 09:18 Enterobacteriac sp PCR DETECTED (Not Detect) A 06/02/18 09:18 E. coli (PCR) DETECTED (Not Detect) A 06/02/18 09:18 - Microbiology Findings Microbiology Findings: Microbiology, Last 48 Hours 06/12/18 12:28 Fungal Culture - Preliminary Aspirate Victoria glabrata 06/19/18 09:56 Blood Culture - Preliminary Peripheral Central Cath, Picc Culture is incubating and being continuously monitored for growth. Final report to follow. 06/19/18 09:51 Blood Culture - Preliminary Peripheral Venipuncture Culture is incubating and being continuously monitored for growth. Final report to follow. - Clinical Findings Intake & Output: Intake & Output 06/20/18 06/21/18 06/21/18 23:59 07:59 15:59 Intake Total 300 / 300 450 / 450 35 / 35 Output Total 1615 / 1615 590 / 590 Balance -1315 / -1315 -140 / -140 35 / 35 Weight 101.8 kg Consult Discharge Plan - Plan Referrals: Zafar Hinton MD [Primary Care Provider] - - Attending Attestation I examined this patient and my medical decision-making was reviewed with the Resident Physician. I agree with the documented findings, disposition and treatment plan as described except to the extent set forth below. We independently had [id number] contact with the patient Patient seen and examined at bedside Labs, radiology, chart personally reviewed. Management was reviewed during multidisciplinary critical care rounds. 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 The patient is status post perforated viscus with multiple surgeries general surgery is managing this Nutrition: Continue TPN per dietary recommendations Renal: UOP Monitored, Cont to Trend sCr and monitor Electrolytes. ID: Continue treatment for Victoria glabrata and Escherichia coli per ID recommendations Heme/Onc: DVT prophylaxis given Endo: Glucose Monitored - remains hyperglycemic we will increase basal dosing of insulin Integ/MSK: Skin Care per routine ICU Nursing Protocol to prevent ulcers. Lines: All lines examined without evidence of infection : Dispo: Transfer to stepdown unit for ongoing care will discussed with hospitalist service to continue management of medical issues no acute pulmonary concerns and pulmonary will sign off thank you for this consultation CODE: Full <Nathaniel Kumar - Last Filed: 06/21/18 13:02> Date of Encounter: 06/21/18 Time of Encounter: 06:40 Assessment and Plan (1) Sepsis Current Visit: No Status: Acute Most likely 2/2 intraabdominal abscess with purulant fluid collections. Day 20 in ICU. 1/2 initial blood cultures pos E coli 06/02/18. Initial body fluid culture pos E coli 06/02/18. Sputum culture pos for Ecoli 06/11/18. IR drained abscess culture pos for E coli and Victoria glabrata 06/12/18. Repeat blood and line cultures ngtd. On 2g ceftriaxone, metronidazole, micafungin managed by ID currently. Extubated 06/15/18. Shock resolved and BP stable. Tachycardic still but improved some since metoprolol increased to q4h. WBC 10.9. Tmax 101.5 overnight. Drains still in place with continued output, drainage looking more clear today. Fluctuating encephalopathy improving, will continue to work on sleep/wake normalization. Continue PT and mobilization. Gen surg waiting for gut motility. Will repeat upper GI follow through next week. Improving overall, can likely step down today. Care discussed with surgery service and they are agreeable to step down from ICU to 2N. Qualifiers: Sepsis type: Escherichia coli Qualified Code(s): A41.51 - Sepsis due to Escherichia coli [E. coli] (2) Pneumonia due to E. coli Current Visit: Yes Status: Acute Resolved. Sputum pos for E coli 06/11/18, sensitive to ceftriaxone which he is on. Small bilateral lower lung consolidation on chest CT 06/11/18. Tmax 101.5 overnight, which is up some, wbc 10.9, and breathing is much improved since extubation. Qualifiers: Laterality: bilateral Lung location: lower lobe of lung Qualified Code(s) : J15.5 - Pneumonia due to Escherichia coli (3) Bacteremia due to Gram-negative bacteria Current Visit: Yes Status: Acute Resolved. Initial blood cultures 06/02/18 grew E coli. No pos blood cultures since. (4) Acute on chronic renal failure Current Visit: Yes Status: Resolved Resolved. Cr 0.95 today. Will trend Cr, monitor and replace elctrolytes as needed. Qualifiers: Acute renal failure type: unspecified Chronic kidney disease stage: unspecified stage Qualified Code(s): N17.9 - Acute kidney failure, unspecified ; N18.9 - Chronic kidney disease, unspecified (5) Perforated viscus Current Visit: Yes Status: Acute S/p exlap, washout, gerri-en-y. Surg following. Repeat wound cultures grew E coli and yeast, intermediate to zosyn. Continue current ceftriaxone, metronidazole and micafungin. (6) Lactic acidosis Current Visit: Yes Status: Resolved Resolved. Lactic high of 5.1, latest 1.1 (7) Anemia Current Visit: Yes Status: Resolved Hgb been stable recently. 9.2 today. Qualifiers: Anemia type: other cause Other causes of anemia: other cause, not classified Qualified Code(s): D64.89 - Other specified anemias (8) Diabetes Current Visit: Yes Status: Chronic Hx of DM. On TPN, glucose trending high 100's/low 200's since infusion stopped. Will increase basal from 25 BID to 30 units am and 35 units hs and continue high SSI for now. Qualifiers: Diabetes mellitus type: type 2 Diabetes mellitus senior living insulin use: without senior living use Diabetes mellitus complication status: with hyperglycemia Qualified Code(s): E11.65 - Type 2 diabetes mellitus with hyperglycemia (9) Pressure injury of skin of head Current Visit: Yes Status: Acute ~6x3cm pressure wound on back of head. Likely 2/2 immobility during 14 days intubated. Open, minimal drainage, non tender, no erythema, heat, signs of infection currently. Wound care consulted and appreciate their recs. Qualifiers: Pressure injury stage: unspecified pressure injury stage Qualified Code(s) : L89.819 - Pressure ulcer of head, unspecified stage (10) VRE (vancomycin-resistant Enterococci) Current Visit: No Status: Inactive Hx of VRE in urine. Treated with outpatient abx with ID. On contact precautions. (11) Obesity (BMI 30.0-34.9) Current Visit: Yes Status: Chronic BMI 34.6. Will recommend lifestyle modifications upon dc. (12) DVT prophylaxis Current Visit: Yes Status: Acute Chemical prophylaxis Subjective Principal diagnosis: Septic shock Interval history: Doing better overnight, no reports of agitation/confusion last night. Tmax last 24 hours 101.5. No new complaints today, breathing better, some abdominal pain, some nausea still but better, no emesis events, ng and drains still in place. Objective PUL Vital signs: Last Vital Signs Temp 99.5 F 06/21/18 07:40 Pulse 107 06/21/18 06:00 Resp 18 06/21/18 06:00 BP 121/84 06/21/18 06:00 Pulse Ox 95 06/21/18 06:00 General appearance: no acute distress, alert Eyes: nonicteric ENT: oropharynx dry Effort: normal Auscultation: bilateral: diminished breath sounds Cardiovascular: other (Tachycardic) Gastrointestinal: absent bowel sounds, soft Integumentary: other (R great toe erythematous, tender. L ear erythematous, swollen, with L periauricular erythema, non tender, increased heat. ) Extremities: no cyanosis, pulses normal, edema (minimal ) non-focal exam mood appropriate Results - Laboratory Findings CBC and BMP: 06/21/18 05:35 06/21/18 05:35 ABG ABG pH 7.37 pH Units (7.32-7.45) 06/16/18 04:34 ABG pCO2 45 mmHg (35-45) 06/16/18 04:34 ABG pO2 98 mmHg (85-104) 06/16/18 04:34 ABG O2 Saturation 97 % (95-98) 06/16/18 04:34 PT/INR, D-dimer PT 13.4 Seconds (9.4-12.1) H 06/17/18 04:39 Abnormal lab findings: Abnormal lab results RBC 3.38 M/mcL (4.19-5.50) L 06/21/18 05:35 Hgb 9.2 g/dL (12.9-16.9) L 06/21/18 05:35 Hct 30.5 % (37.5-50.1) L 06/21/18 05:35 MCH 27.2 pg (28.0-33.3) L 06/21/18 05:35 MCHC 30.2 g/dL (31.6-35.5) L 06/21/18 05:35 RDW 16.5 % (11.5-14.5) H 06/21/18 05:35 Immature Gran % 8.0 % (0-4) H 06/19/18 03:00 Metamyelocytes % 2.0 % (0) H 06/18/18 03:30 Myelocytes % 2.0 % (0) H 06/21/18 05:35 Nucleated RBCs/100 WBC 2.0 /100 WBC (0) H 06/21/18 05:35 Toxic Granulation Present (Not Present) A 06/08/18 04:35 Large Platelets Present (Not Present) A 06/07/18 03:30 Polychromasia 2+ (Not Present) A 06/19/18 03:00 Hypochromasia Present (Not Present) A 06/19/18 03:00 Anisocytosis 1+ (Not Present) A 06/19/18 03:00 PT 13.4 Seconds (9.4-12.1) H 06/17/18 04:39 ABG Total CO2 28 mEq/L (20-26) H 06/16/18 04:34 Chloride 112 mEq/L (98-107) H 06/21/18 05:35 Carbon Dioxide 22 mEq/L (23-29) L 06/21/18 05:35 BUN 38 mg/dL (6-20) H 06/21/18 05:35 BUN/Creatinine Ratio 40 (6-26) H 06/21/18 05:35 Glucose 243 mg/dL (70-105) H 06/21/18 05:35 POC Glucose 206 mg/dL (70-99) H 06/20/18 23:35 Calculated Osmolality 317 (280-300) H 06/21/18 05:35 Direct Bilirubin 0.3 mg/dL (0.0-0.2) H 06/12/18 03:20 Serum Total Protein 5.6 g/dL (6.4-8.9) L 06/12/18 03:20 Albumin 2.7 g/dL (3.5-5.7) L 06/12/18 03:20 Albumin/Globulin Ratio 0.9 (1.1-2.2) L 06/12/18 03:20 Triglycerides 313 mg/dL (< 150) H 06/18/18 03:30 Gastrin 117 pg/mL (0-100) H 06/03/18 21:23 Urine Clarity Cloudy (Clear) A 06/02/18 09:18 Urine Protein 100 mg/dL (Neg-Trace) H 06/02/18 09:18 Urine Blood Large (Negative) H 06/02/18 09:18 Ur Leukocyte Esterase Moderate (Negative) H 06/02/18 09:18 Urine Microscopic RBC TNTC per hpf (0-3) H 06/02/18 09:18 Urine Microscopic WBC 15-30 per hpf (0-3) H 06/02/18 09:18 Ur Squamous Epith Cells Many per lpf (None-Few) H 06/02/18 09:18 Ur Culture Indicated? NO. (NO) A 06/02/18 09:18 Enterobacteriac sp PCR DETECTED (Not Detect) A 06/02/18 09:18 E. coli (PCR) DETECTED (Not Detect) A 06/02/18 09:18 - Microbiology Findings Microbiology Findings: Microbiology, Last 48 Hours 06/12/18 12:28 Fungal Culture - Preliminary Aspirate Victoria glabrata 06/19/18 09:56 Blood Culture - Preliminary Peripheral Central Cath, Picc Culture is incubating and being continuously monitored for growth. Final report to follow. 06/19/18 09:51 Blood Culture - Preliminary Peripheral Venipuncture Culture is incubating and being continuously monitored for growth. Final report to follow. - Clinical Findings Intake & Output: Intake & Output 06/20/18 06/21/18 06/21/18 23:59 07:59 15:59 Intake Total 300 / 300 450 / 450 Output Total 1615 / 1615 590 / 590 Balance -1315 / -1315 -140 / -140 Weight 101.8 kg - VTE Documentation of Mechanical Device: Intermittent pneumatic compression device
[2018-06-21] MEDS: Leptospermum Honey Gel 44 ML TUBE TP SCH (08:53)
[2018-06-21] MEDS ORDERED: Insulin DETEMIR 100 UNIT/ML X5UNITS SQ ONE (09:23)
--- NOTE | 2018-06-21 09:54 | General Surgery Progress Note ---
Date of Encounter: 06/21/18 Time of Encounter: 09:52 - Assessment and Plan (1) Peritonitis Current Visit: Yes Status: Acute 52M admitted with recurrence of perforated ulcer after evie patch POD #16 s/p antrectomy with RNY reconstruction; s/p IR drainge of intraabdominal abscess; decrease SARBJIT drainage from duodenal stump leak, febrile, tachycardic; on appropriate antimicrobials cont TPN await return of bowel function cont banda catheter due to need to continue to monitor UOP cont PPI, abx (appreciate ID recs) PT/OT pulm toileting will plan for repeat abd xray vs CT scan on 06/22 okay for transfer to step down if bed is needed Subjective Patient reports: no new complaints, feels better, flatus, other (febrile overnight, tachycardic) Objective Vital Signs - Last 8 Hours Temp Pulse Resp BP Pulse Ox 06/21/18 07:40 99.5 F 06/21/18 06:00 107 18 121/84 95 06/21/18 05:40 100.0 F H 06/21/18 05:00 107 19 112/80 95 06/21/18 04:00 100.0 F H 123 20 104/85 95 06/21/18 03:00 123 20 110/71 94 06/21/18 02:00 122 20 105/76 94 Intake and Output 06/20/18 06/21/18 06/21/18 23:59 07:59 15:59 Intake Total 300 / 300 450 / 450 35 / 35 Output Total 1615 / 1615 590 / 590 Balance -1315 / -1315 -140 / -140 35 / 35 Intake: IV Fluids 300 / 300 450 / 450 35 / 35 PRECEDEX Premix 400 mcg In 100 35 / 35 ml @ 0.2 MCG/KG/HR 5.48 mls/hr IVC .[id number] [facility] Rx#:[id number] Ofirmev 1,000 mg/100 ml 1,000 100 / 100 100 / 100 mg In 100 ml @ 400 mls/hr IVPB Q6HR PRN Rx#:[id number] Intralipid 20% 250 ML @ 21 mls/ 250 / 250 hr IVPB [id number] [facility] Rx#: [id number] Flagyl Premix 500 MG/100 ML 500 100 / 100 100 / 100 mg In 100 ml @ 100 mls/hr IVPB Q8HR [facility] Rx#:[id number] Rocephin 2,000 MG In 0.9 % 100 / 100 Sodium Chloride (Mini-Bag +) 100 ML @ 200 mls/hr IVPB Q24H [facility] Rx#:[id number] Output: Emesis 20 / Catheter 1450 / 1450 550 / 550 Gastric Drainage 100 / 100 Wound Drainage 45 / 45 40 / 40 Left Abdomen 0 / 0 0 / 0 Right Abdomen 30 30 20 / 20 Right Upper Abdomen 15 / 15 20 / Other: Weight 101.8 kg Blood Glucose* 206 224 Patient Weight 06/21/18 23:59 Weight 101.8 kg - General physical appearance no distress - Respiratory normal expansion, normal respiratory effort - Cardiovascular Cardiovascular exam: Present: RRR, tachycardia - Abdomen Abdomen: Present: soft, non tender - Incision Incision: Present: clean and dry, intact - Integumentary no rash - Psychiatric oriented to person, oriented to place - Labs 06/21/18 05:35 06/21/18 05:35 Diabetes panel 06/21/18 Range/Units 05:35 Sodium 145 (136-145) mEq/L Potassium 4.0 (3.5-5.1) mEq/L Chloride 112 H (98-107) mEq/L Carbon Dioxide 22 L (23-29) mEq/L BUN 38 H (6-20) mg/dL Creatinine 0.95 (0.70-1.30) mg/dL Glucose 243 H (70-105) mg/dL Calcium 9.9 (8.6-10.3) mg/dL Calcium panel 06/21/18 06/21/18 Range/Units 05:35 05:35 Calcium 9.9 (8.6-10.3) mg/dL Phosphorus 4.0 (2.7-4.5) mg/dL Pituitary panel 06/21/18 Range/Units 05:35 Sodium 145 (136-145) mEq/L Potassium 4.0 (3.5-5.1) mEq/L Chloride 112 H (98-107) mEq/L Carbon Dioxide 22 L (23-29) mEq/L BUN 38 H (6-20) mg/dL Creatinine 0.95 (0.70-1.30) mg/dL Glucose 243 H (70-105) mg/dL Calcium 9.9 (8.6-10.3) mg/dL Adrenal panel 06/21/18 Range/Units 05:35 Sodium 145 (136-145) mEq/L Potassium 4.0 (3.5-5.1) mEq/L Chloride 112 H (98-107) mEq/L Carbon Dioxide 22 L (23-29) mEq/L BUN 38 H (6-20) mg/dL Creatinine 0.95 (0.70-1.30) mg/dL Glucose 243 H (70-105) mg/dL Calcium 9.9 (8.6-10.3) mg/dL - VTE Documentation of Mechanical Device: Intermittent pneumatic compression device Consult Discharge Plan - Plan Referrals: Zafar Hinton MD [Primary Care Provider] -
[2018-06-21] MEDS ORDERED: Ringers Solution, Lactated 1,000 ML ONE (11:20)
[2018-06-21] MEDS ORDERED: *HR* EPINEPHrine 1 MG/10 ML SYRINGE ONE (11:29)
[2018-06-21] MEDS ORDERED: *HR* EPINEPHrine 1 MG/10 ML SYRINGE IVP ONE (11:39)
[2018-06-21] MEDS ORDERED: *HR* Dextrose 50 % in Water (Syg) 50 ML SYRINGE IVC ONE (11:39)
--- NOTE | 2018-06-21 12:38 | Death Note ---
Discharge Sum: Summary - Date and Time Date of admission: 06/02/18 12:20 Date of : 06/21/18 Time of : 11:40 - Summary Details: Had duodenal perforation s/p evie patch in 04/16 2/2 chronic NSAID use. Presented to the ED 06/02/18 with abdominal pain. He was found to have pneumoperitoneum and taken to OR for exlap. They found purulant discharge and abscess in the abdomen. His abdomen was left open with wound vac in place. He was brought to the ICU intubated and returned to the OR 06/05/18 and had exlap, gerri en y, antrectomy, and closure of duodenal stump. Had positive blood cultures for E coli 06/02/18, pos sputum culture for E coli 06/11/18, and pos wound cultures for E coli and Victoria glabrata 06/12/18. His course was complicated with septic shock 2/2 E coli bacteremia which required pressor support. He was treated with zosyn, ceftriaxone, metroniadazole, fluconazole, and micafungin during his time in ICU. He failed SBT for multiple days before successfully liberating from vent on 06/15/18. He continued to improve each day this week from both a medical and surgical standpoint and was to step down from ICU to progressive care today. Late morning when attempting to move him from bed to chair he became bradycardic and they transitioned back to bed. This point he became unresponsive and rapid response called. No pulse was found, code initiated and 30 min of CPR, along with successful intubation, 9 rounds epi , 3 amps bicarb, 1 amp d50, and 1 amp calcium chloride given without return to spontaneous circulation. PEA on monitor after each round CPR till last round asystole was recorded. At this time CPR was stopped after full code effort given without any success. - Additional Data Confirmation of as documented by pronouncing clinician: no pulse, no respirations, no heart sounds Family: at bedside (outside of room) Attending/PCP notified?: Yes Attending physician: Rafi Crabtere MD Was code activated?: Yes Autopsy requested?: No examiner rating clerk notified?: Yes Organ bank notified?: Yes Advance directives: Yes Hospice patient?: No Discharge Sum: Diag - PCOD Probable Cause of : Cardiac arrest Discharge Sum: Prov - Provider Primary care physician: Zafar Hinton MD Admitting clinician: Kota Brown Attending physician on admission: Kota Brown Consults: 06/02/18 18:16 Consult to Infectious Diseases [CONS] Routine Consulting Provider: Infectious Disease [place] Reason for Consult: Followed by ID for abdominal abscess with recent senior living abx and antifungal use. Exlap today for pneumoperitoneum with abscess. Time Notified: 18:17 Call Completed: No 06/03/18 11:27 Consult to Invasive Line Access Team [CONS] Routine Reason for Consult: Picc Line Insertion Line Type: PICC PICC line indications: Parental nutrition 06/03/18 11:29 consult to public health microbiologist [Consult to Nutrition] [CONS] Routine Comment: Consulting Provider: NUTRITION Reason for Dietary Consult: TPN Start and Manage 06/10/18 15:46 Consult to Interpret Exam [CONS] Routine Consulting Provider: Jax Lezama I Consult to Interpret Exam: Interpret EEG 06/11/18 10:55 Consult to Neurology [CONS] Stat Consulting Provider: Neurology [place] [facility] Reason for Consult: No longer arousable, previously was following commands. Trialed off propfol and precedex without arousability. EEG and MRI brain completed. Time Notified: 10:57 Call Completed: Yes 06/12/18 08:08 Consult to Interventional Radiology [CONS] Stat Consulting Provider: Radiology Interventional [place] Reason for Consult: developing abscess/phlegmon 3.9x5.4x4.6 cm RUQ inferior to catheter tip already in place. Please assess for possible new drain as the current drain needs to remain in place for s/p distal duodenal fistula creation. Time Notified: 08:09 Call Completed: Yes 06/18/18 09:20 Consult to Occupational Therapy [CONS] Routine Comment: Evaluate, develop and implement POC Reason for Consult: Initiate OT for mobilization and planning Does patient have active BEDREST order?: No Is patient medically & hemodynamically stable?: Yes Consult to Physical Therapy [CONS] Routine Comment: Evaluate, develop and implement POC Reason for Consult: Initiate PT for mobilization Does patient have active BEDREST order?: No Is patient medically & hemodynamically stable?: Yes 06/20/18 09:02 Consult to Solar Installation Manager [CONS] Routine Reason for SW Consult: placement 06/20/18 11:52 Consult to Wound Care [CONS] Routine Reason for Consult: ~6x3 cm lesion on back of head. Has been in ICU for 19 days and likely due to immobility when intubated. Time Notified: 11:55 Call Completed: No Pronouncing clinician: Kota Brown
--- NOTE | 2018-06-21 12:52 | Event Note ---
Date of Encounter: 06/21/18 Time of Encounter: 11:30 Called from OR stating that patient was being coded. This morning the patient was alert, oriented to self and location, responsive, minimal pain with plans for continued therapy and transfer to step down; He was on chemical and mechanical DVT prophylaxis, mildly tachycardic, but attributed to other sources (ie duodenal stump leak that was controlled with drain, intraabdominnal abscess that was drained, possible yeast vs pneumonia). He did have a prior examination for DVT, but that was negative. After about 30 minutes of PEA and finally asystole, the decision was made to stop resuscitation efforts.
--- NOTE | 2018-06-21 13:20 | Critical Care Progress Note ---
Critical Care Note - Narrative Summary: The high probability of a clinically significant, sudden or life threatening deterioration of the patient's condition required my full and direct attention, intervention and personal management. Per nursing report patient was being mobilized by physical therapy/occupational therapy and was noted to become bradycardic a rapid response was called and I rushed to the ICU to evaluate the patient in route a CODE BLUE was activated and patient went into full cardiac arrest. Defibrillator pads were placed on the patient and he was continuously monitored via leads from the defibrillator pads as well as the telemetry monitoring that was already attached to the patient. A backboard was placed under the patient patient was initially undergoing bag mask ventilation from the respiratory therapist and shortly thereafter a definitive airways was placed by anesthesia. The patient underwent 12 rounds of high quality cardiopulmonary resuscitation including 9 pushes of epinephrine. After each round of CPR unfortunately patient did not have return of spontaneous circulation and the monitor was consistent with pulseless electrical activity. Throughout the code the patient did receive 3 amps of bicarbonate 1 amp of dextrose (50%) and 1 amp of calcium chloride. CPR was performed for approximately 30 minutes there was no laboratory or telemetry abnormalities prior to bradycardia that would have been predictive of full cardiac arrest in this patient. In fact the patient was determined to be suitable for the stepdown unit for transfer out of the ICU because of his general improvement over the last week. It is unclear what precipitated this cardiac arrest but it is possible that myocardial ischemia or pulmonary embolus was the culprit. Unfortunately the patient was not a candidate for systemic TPA because of recent major intra-abdominal surgery and a differential diagnosis would have been anastomotic leak/hemorrhage. After the last cycle of CPR the final rhythm noted was asystole and the code was called after an animus agreement that this was continuation would be futile . His who was notified of this event was in reviewed during the CPR arrived at the termination of the last round. I left the patient at that point and when out to explain what happened in the presence of the primary general surgery attending Dr. Henao. I presented to her the events leading up to this as well as what interventions were taking during the code and what I suspected may have been the antecedent trigger. I offered emotional support to the patient giving her my deepest condolences. His was clearly shaken by this news understandably but expressed understanding and thanked us for our efforts. The ICU team then arranged for pastoral support at the family's request. Was code activated?: Yes - CC Time CC start date: 06/21/18 CC start time: 11:05 CC end date: 06/21/18 CC end time: 11:40 CC total mins: 35 Critical care time: 30 - 74 mins
[2018-06-21 14:07] VITALS: BP 197/88
[2018-06-21] MEDS ORDERED: Clinimix E 5%-15% SOLUTION 2,000 ML, Parenteral Amino Acid 10% 200 ML with MVI, adult ... IVC SCH (17:00)
[2018-06-21] MEDS ORDERED: Insulin DETEMIR 100 UNIT/ML X5UNITS SQ SCH (21:00)
[2018-06-22] MEDS ORDERED: Insulin DETEMIR 100 UNIT/ML X5UNITS SQ SCH (09:00)
[2018-06-22] MEDS ORDERED: Clinimix E 5%-15% SOLUTION 2,000 ML, Parenteral Amino Acid 10% 200 ML with MVI, adult ... IVC SCH (17:00)
== END 2018-06-21 11:40 | disposition expired | DRG 853 ==
LOC: EMEROOARM 08:06 → ICNU 12:20
PROVIDERS: ADMIT Student in an Organized Health Care Education/Training Program; ATTEND Student in an Organized Health Care Education/Training Program
PROC: IRDRAIN (2018-06-12 12:00)